=== PATIENT | female | born 1970 | race Hispanic/Latino ===

== ENCOUNTER 2016-08-31 20:03 | Emergency (ER) | payer SELFPAY ==
[2016-08-31 20:36] VITALS: BP 135/92
[2016-08-31 21:28] LABS: Basophils % (Auto) 1.3 % (0.0-1.8); Eosinophils % (Auto) 1.1 % (0.0-4.3); Hematocrit 39.1 % (30.3-42.9); Hemoglobin 13.2 gm/dl (10.1-14.3); Mean Corpuscular HGB Conc 34 % (30-34); Mean Corpuscular Hemoglobin 37 pg (28-32); Mean Corpuscular Volume 109 fl (79-97); Platelet Count 166 K/mm3 (140-440); Red Blood Count 3.58 M/mm3 (3.65-5.03); Red Cell Distribution Width 17.9 % (13.2-15.2); White Blood Count 5.3 K/mm3 (4.5-11.0)
[2016-08-31 21:49] LABS: Blood Urea Nitrogen 6 mg/dL (7-17); Calcium 8.1 mg/dL (8.4-10.2); Carbon Dioxide 26 mmol/L (22-30); Chloride 104.4 mmol/L (98-107); Glucose 84 mg/dL (65-100); Potassium 3.3 mmol/L (3.6-5.0); Sodium 145 mmol/L (137-145)
[2016-08-31 21:51] LABS: Anion Gap 18 mmol/L
--- NOTE | 2016-09-02 10:52 | ED Elopement Review ---
ED Pt Elopement review - Results review Lab results: Laboratory Tests 08/31/16 08/31/16 08/31/16 21:13 21:13 21:13 WBC 5.3 RBC 3.58 L Hgb 13.2 Hct 39.1 MCV 109 H MCH 37 H MCHC 34 RDW 17.9 H Plt Count 166 Lymph % (Auto) 47.0 H Martin % (Auto) 8.0 H Eos % (Auto) 1.1 Baso % (Auto) 1.3 Lymph # 2.5 Martin # 0.4 Eos # 0.1 Baso # 0.1 Seg Neutrophils % 42.6 Seg Neutrophils # 2.3 Sodium 145 Potassium 3.3 L Chloride 104.4 Carbon Dioxide 26 Anion Gap 18 BUN 6 L Creatinine 0.5 L Estimated GFR > 60 BUN/Creatinine Ratio 12.00 Glucose 84 Calcium 8.1 L Plasma/Serum Alcohol 0.20 H - Call Back decision Pt Call Back Decision: No action required
== END 2016-09-01 00:23 | disposition left against medical advice (07) ==
LOC: ED 20:03
DX: F10.10 Alcohol abuse, uncomplicated (principal); Z53.21 Procedure and treatment not carried out due to patient leaving prior to being seen by health care provider
CPT/HCPCS: 36415; 80048; 85025; G0480; 80320

== ENCOUNTER 2016-12-30 00:30 | Emergency (ER) | payer OTHER ==
[2016-12-30 01:00] LABS: Basophils % (Auto) 0.9 % (0.0-1.8); Eosinophils % (Auto) 0.5 % (0.0-4.3); Hematocrit 40.4 % (30.3-42.9); Hemoglobin 13.8 gm/dl (10.1-14.3); Mean Corpuscular HGB Conc 34 % (30-34); Mean Corpuscular Hemoglobin 43 pg (28-32); Platelet Count 122 K/mm3 (140-440); Red Blood Count 3.19 M/mm3 (3.65-5.03); Red Cell Distribution Width 14.3 % (13.2-15.2); White Blood Count 6.1 K/mm3 (4.5-11.0)
[2016-12-30 01:02] LABS: Mean Corpuscular Volume 126 fl (79-97)
[2016-12-30 01:19] LABS: Anion Gap 20 mmol/L; BUN/Creatinine Ratio 8.57; Blood Urea Nitrogen 6 mg/dL (7-17); Calcium 8.4 mg/dL (8.4-10.2); Carbon Dioxide 24 mmol/L (22-30); Chloride 103.5 mmol/L (98-107); Glucose 105 mg/dL (65-100); Potassium 3.3 mmol/L (3.6-5.0); Sodium 144 mmol/L (137-145)
[2016-12-30 07:27] LABS: Urine Drugs of Abuse Note Disclamer
[2016-12-30 08:10] LABS: Bacteria,Urine 1+ /HPF (Negative); Bilirubin,Urine NEG (Negative); Blood,Urine NEG (Negative); Ketones,Urine NEG (Negative); Leukocyte Esterase,Urine NEG (Negative); Mucus,Urine 1+ /HPF; Nitrite,Urine NEG (Negative); Urobilinogen,Urine < 2.0 mg/dL (<2.0)
[2016-12-30] MEDS ORDERED: K-DUR PO ONE (08:56)
[2016-12-30] MEDS ORDERED: ATIVAN IV PRN ×2 (09:02)
[2016-12-30] MEDS ORDERED: TORADOL IV ONE (09:14)
[2016-12-30 09:33] LABS: Magnesium 1.6 mg/dL (1.7-2.3)
[2016-12-30 09:46] LABS: Albumin 3.9 g/dL (3.9-5); Albumin/Globulin Ratio 1.4 %; Bilirubin,Direct 0.3 mg/dL (0-0.2); Bilirubin,Indirect 0.4 mg/dL; Bilirubin,Total 0.7 mg/dL (0.1-1.2); Total Protein 6.6 g/dL (6.3-8.2)
[2016-12-30] MEDS ORDERED: VITAMIN B-1 100 MG, FOLVITE 1 MG, INFUVITE 10 ML in NACL 0.9% 1000 ML 1,000 ML IV ONE (10:00)
[2016-12-30] MEDS: ATIVAN IV PRN (10:14)
--- NOTE | 2016-12-30 10:49 | XRay Report ---
LUMBAR SPINE THREE VIEWS: 12/30/16 00:30:00 CLINICAL: Back pain. FINDINGS: Moderate dextroscoliosis at L3-4. Moderately severe degenerative disc disease, greatest at L3-4. Large anterior and lateral osteophytes. The pedicles are intact. No fracture. Multilevel facet joint sclerosis. Normal soft tissues. IMPRESSION: Scoliosis and degenerative change, greatest at L3-4. Multilevel facet joint arthropathy.
--- NOTE | 2016-12-30 12:39 | Emergency Department Report ---
ED Psych HPI - General Chief Complaint: Psych Stated Complaint: MH EVAL Time Seen by Provider: 12/30/16 08:54 Source: patient Mode of arrival: Ambulatory Limitations: No Limitations - History of Present Illness Initial Comments: 46 yo female a past medical history alcohol abuse and previous cholecystectomy presents to the hospital complains of detox request. She states that the patient complained of being suicidal however, she states that she only said that so that she would be seen faster. Patient admits to drinking a half a gallon of liquor daily. Patient complains of lower back pain has been ongoing 1 month. She denies any recent trauma or injury. Pain worse with movement. Patient states drinking helps to decrease the pain. No complaints of nausea, vomiting, fever, dysuria, or abdominal pain. - Related Data Previous Rx's Medication Instructions Recorded Last Taken Type FLUoxetine [PROzac] 20 mg PO QDAY #30 capsule 04/27/16 Unknown Rx Folic Acid 1 tab PO QDAY #30 tab 04/27/16 Unknown Rx Multivitamin Tab [Multiple Vitamin 1 each PO ONCE #30 tablet 04/27/16 Unknown Rx TAB (Theragran)] Thiamine [Vitamin B-1] 100 mg PO QDAY #30 tablet 04/27/16 Unknown Rx traZODone [Desyrel] 50 mg PO QHS #30 tab 04/27/16 Unknown Rx Allergies Allergy/AdvReac Type Severity Reaction Status Date / Time Penicillins Allergy Rash Verified 09/02/14 19:34 ED Review of Systems ROS: Stated complaint: MH EVAL Other details as noted in HPI Comment: All other systems reviewed and negative Other: Constitutional: No fevers chills Eyes: No eye pain visual changes ENT: No ear pain or throat pain Neck: Denies pain Respiratory: Denies cough wheezing shortness of breath Cardiovascular: Denies chest pain, palpitations, syncope GI: Denies abdominal pain, nausea, vomiting, diarrhea : Denies dysuria, urinary frequency, or urgency Musculoskeletal: as per hpi Skin: Denies rash, lesions, erythema Neurologic: Denies headache, numbness, weakness Psychiatric: Denies suicidal ideation, hallucinations ED Past Medical Hx - Past Medical History Previous Medical History?: Yes Hx Congestive Heart Failure: No Hx Diabetes: No Hx Asthma: No Hx COPD: No Additional medical history: ALCOHOLIC - Surgical History Past Surgical History?: Yes Hx Cholecystectomy: Yes Additional Surgical History: HYSTERECTOMY - Social History Smoking Status: Current Every Day Smoker Substance Use Type: Alcohol - Medications Home Medications: Home Medications Medication Instructions Recorded Confirmed Last Taken Type FLUoxetine [PROzac] 20 mg PO QDAY #30 capsule 04/27/16 Unknown Rx Folic Acid 1 tab PO QDAY #30 tab 04/27/16 Unknown Rx Multivitamin Tab [Multiple Vitamin 1 each PO ONCE #30 tablet 04/27/16 Unknown Rx TAB (Theragran)] Thiamine [Vitamin B-1] 100 mg PO QDAY #30 tablet 04/27/16 Unknown Rx traZODone [Desyrel] 50 mg PO QHS #30 tab 04/27/16 Unknown Rx ED Physical Exam - General Limitations: No Limitations - Other Other exam information: General: No limitations, patient is alert in no acute distress Head exam: Atraumatic, normocephalic Eyes exam: Normal appearance ENT: Moist mucous membrane, normal oropharynx Neck exam: Normal inspection, full range of motion Respiratory exam: Clear to auscultation bilateral, no wheezes, rales, crackles Cardiovascular: Normal rate and rhythm, normal heart sounds Abdomen: Soft, nondistended, right upper quadrant tenderness, with normal bowel sounds, no rebound, or guarding Extremity: Full range of motion, bilateral lower extremity edema, 2+. No calf tenderness Back: Normal Inspection, full range of motion, bilateral lower back muscular tenderness no midline tenderness Neurologic: Alert, oriented x3, cranial nerves intact, no motor or sensory deficit Psychiatric: normal affect, normal mood Skin: Warm, dry, intact ED Course Vital Signs 12/30/16 12/30/16 12/30/16 00:37 06:17 08:11 Temperature 97.5 F L Pulse Rate 107 H 87 Respiratory 16 12 Rate Blood Pressure 132/80 124/88 O2 Sat by Pulse 100 100 98 Oximetry 12/30/16 12/30/16 12/30/16 08:20 08:30 08:40 Temperature Pulse Rate Respiratory Rate Blood Pressure 115/90 131/85 131/85 O2 Sat by Pulse 97 97 95 Oximetry 12/30/16 12/30/16 12/30/16 08:50 09:00 09:10 Temperature Pulse Rate Respiratory Rate Blood Pressure 131/85 131/85 145/88 O2 Sat by Pulse 94 95 95 Oximetry 12/30/16 12/30/16 12/30/16 09:24 09:30 09:40 Temperature Pulse Rate Respiratory Rate Blood Pressure 145/88 135/87 135/87 O2 Sat by Pulse 94 98 92 Oximetry 12/30/16 12/30/16 12/30/16 09:50 10:00 10:11 Temperature Pulse Rate Respiratory Rate Blood Pressure 135/87 135/87 O2 Sat by Pulse 96 84 93 Oximetry 12/30/16 12/30/16 12/30/16 10:21 10:30 10:41 Temperature Pulse Rate Respiratory Rate Blood Pressure 141/92 118/72 118/72 O2 Sat by Pulse 88 93 92 Oximetry 12/30/16 12/30/16 12/30/16 10:51 11:00 11:11 Temperature Pulse Rate Respiratory Rate Blood Pressure 118/72 113/61 113/61 O2 Sat by Pulse 92 89 91 Oximetry 12/30/16 12/30/16 12/30/16 11:21 11:30 11:41 Temperature Pulse Rate Respiratory Rate Blood Pressure 113/61 133/81 133/81 O2 Sat by Pulse 91 99 94 Oximetry 12/30/16 12/30/16 11:51 12:00 Temperature Pulse Rate Respiratory Rate Blood Pressure 133/81 113/70 O2 Sat by Pulse 93 95 Oximetry - Reevaluation(s) Reevaluation #1: 12/30/16 13:40 pt drowsy and sleeping since receiving ativan. - Consultations Consultation #1: 12/30/16 10:57 [facility] ED Medical Decision Making - Lab Data Result diagrams: 12/30/16 00:43 12/30/16 00:43 Lab Results 12/30/16 12/30/16 12/30/16 Range/Units 00:30 00:43 00:43 WBC (4.5-11.0) K/mm3 RBC (3.65-5.03) M/mm3 Hgb (10.1-14.3) gm/dl Hct (30.3-42.9) % MCV (79-97) fl MCH (28-32) pg MCHC (30-34) % RDW (13.2-15.2) % Plt Count (140-440) K/mm3 Lymph % (Auto) (13.4-35.0) % [place] % (Auto) (0.0-7.3) % Eos % (Auto) (0.0-4.3) % Baso % (Auto) (0.0-1.8) % Lymph # (1.2-5.4) K/mm3 [place] # (0.0-0.8) K/mm3 Eos # (0.0-0.4) K/mm3 Baso # (0.0-0.1) K/mm3 Seg Neutrophils % (40.0-70.0) % Seg Neutrophils # (1.8-7.7) K/mm3 Sodium 144 (137-145) mmol/L Potassium 3.3 L (3.6-5.0) mmol/L Chloride 103.5 (98-107) mmol/L Carbon Dioxide 24 (22-30) mmol/L Anion Gap 20 mmol/L BUN 6 L (7-17) mg/dL Creatinine 0.7 (0.7-1.2) mg/dL Estimated GFR > 60 ml/min BUN/Creatinine Ratio 8.57 % Glucose 105 H (65-100) mg/dL Calcium 8.4 (8.4-10.2) mg/dL Magnesium 1.60 L (1.7-2.3) mg/dL Total Bilirubin (0.1-1.2) mg/dL Direct Bilirubin (0-0.2) mg/dL Indirect Bilirubin mg/dL AST (5-40) units/L ALT (7-56) units/L Alkaline Phosphatase (35-129) units/L Total Creatine Kinase 65 (30-135) units/L Total Protein (6.3-8.2) g/dL Albumin (3.9-5) g/dL Albumin/Globulin Ratio % Urine Color (Yellow) Urine Turbidity (Clear) Urine pH (5.0-7.0) Ur Specific [place] (1.003-1.030) Urine Protein (Negative) mg/dL Urine Glucose (UA) (Negative) mg/dL Urine Ketones (Negative) mg/dL Urine Blood (Negative) Urine Nitrite (Negative) Urine Bilirubin (Negative) Urine Urobilinogen (<2.0) mg/dL Ur Leukocyte Esterase (Negative) Urine WBC (Auto) (0.0-6.0) /HPF Urine RBC (Auto) (0.0-6.0) /HPF U Epithel Cells (Auto) (0-13.0) /HPF Urine Bacteria (Auto) (Negative) /HPF Calcium Oxalate Crystal Amorphous Crystals Urine Mucus /HPF Urine HCG, Qual (Negative) Urine Opiates Screen Urine Methadone Screen Ur Barbiturates Screen Ur Phencyclidine Scrn Ur Amphetamines Screen U Benzodiazepines Scrn Urine Cocaine Screen U Marijuana (THC) Screen Drugs of Abuse Note Plasma/Serum Alcohol 0.38 H (0-0.07) gm% 12/30/16 12/30/16 12/30/16 Range/Units 00:43 00:43 06:25 WBC 6.1 (4.5-11.0) K/mm3 RBC 3.19 L (3.65-5.03) M/mm3 Hgb 13.8 (10.1-14.3) gm/dl Hct 40.4 (30.3-42.9) % MCV 126 H (79-97) fl MCH 43 H (28-32) pg MCHC 34 (30-34) % RDW 14.3 (13.2-15.2) % Plt Count 122 L (140-440) K/mm3 Lymph % (Auto) 44.6 H (13.4-35.0) % [place] % (Auto) 8.1 H (0.0-7.3) % Eos % (Auto) 0.5 (0.0-4.3) % Baso % (Auto) 0.9 (0.0-1.8) % Lymph # 2.7 (1.2-5.4) K/mm3 [place] # 0.5 (0.0-0.8) K/mm3 Eos # 0.0 (0.0-0.4) K/mm3 Baso # 0.1 (0.0-0.1) K/mm3 Seg Neutrophils % 45.9 (40.0-70.0) % Seg Neutrophils # 2.8 (1.8-7.7) K/mm3 Sodium (137-145) mmol/L Potassium (3.6-5.0) mmol/L Chloride (98-107) mmol/L Carbon Dioxide (22-30) mmol/L Anion Gap mmol/L BUN (7-17) mg/dL Creatinine (0.7-1.2) mg/dL Estimated GFR ml/min BUN/Creatinine Ratio % Glucose (65-100) mg/dL Calcium (8.4-10.2) mg/dL Magnesium (1.7-2.3) mg/dL Total Bilirubin 0.70 (0.1-1.2) mg/dL Direct Bilirubin 0.3 H (0-0.2) mg/dL Indirect Bilirubin 0.4 mg/dL AST 200 H (5-40) units/L ALT 62 H (7-56) units/L Alkaline Phosphatase 136 H (35-129) units/L Total Creatine Kinase (30-135) units/L Total Protein 6.6 (6.3-8.2) g/dL Albumin 3.9 (3.9-5) g/dL Albumin/Globulin Ratio 1.4 % Urine Color Yellow (Yellow) Urine Turbidity Clear (Clear) Urine pH 5.0 (5.0-7.0) Ur Specific [place] 1.017 (1.003-1.030) Urine Protein 30 mg/dl (Negative) mg/dL Urine Glucose (UA) Neg (Negative) mg/dL Urine Ketones Neg (Negative) mg/dL Urine Blood Neg (Negative) Urine Nitrite Neg (Negative) Urine Bilirubin Neg (Negative) Urine Urobilinogen < 2.0 (<2.0) mg/dL Ur Leukocyte Esterase Neg (Negative) Urine WBC (Auto) 3.0 (0.0-6.0) /HPF Urine RBC (Auto) 2.0 (0.0-6.0) /HPF U Epithel Cells (Auto) 5.0 (0-13.0) /HPF Urine Bacteria (Auto) 1+ (Negative) /HPF Calcium Oxalate Crystal Few Amorphous Crystals Few Urine Mucus 1+ /HPF Urine HCG, Qual Negative (Negative) Urine Opiates Screen Urine Methadone Screen Ur Barbiturates Screen Ur Phencyclidine Scrn Ur Amphetamines Screen U Benzodiazepines Scrn Urine Cocaine Screen U Marijuana (THC) Screen Drugs of Abuse Note Plasma/Serum Alcohol (0-0.07) gm% 12/30/16 Range/Units 06:25 WBC (4.5-11.0) K/mm3 RBC (3.65-5.03) M/mm3 Hgb (10.1-14.3) gm/dl Hct (30.3-42.9) % MCV (79-97) fl MCH (28-32) pg MCHC (30-34) % RDW (13.2-15.2) % Plt Count (140-440) K/mm3 Lymph % (Auto) (13.4-35.0) % [place] % (Auto) (0.0-7.3) % Eos % (Auto) (0.0-4.3) % Baso % (Auto) (0.0-1.8) % Lymph # (1.2-5.4) K/mm3 [place] # (0.0-0.8) K/mm3 Eos # (0.0-0.4) K/mm3 Baso # (0.0-0.1) K/mm3 Seg Neutrophils % (40.0-70.0) % Seg Neutrophils # (1.8-7.7) K/mm3 Sodium (137-145) mmol/L Potassium (3.6-5.0) mmol/L Chloride (98-107) mmol/L Carbon Dioxide (22-30) mmol/L Anion Gap mmol/L BUN (7-17) mg/dL Creatinine (0.7-1.2) mg/dL Estimated GFR ml/min BUN/Creatinine Ratio % Glucose (65-100) mg/dL Calcium (8.4-10.2) mg/dL Magnesium (1.7-2.3) mg/dL Total Bilirubin (0.1-1.2) mg/dL Direct Bilirubin (0-0.2) mg/dL Indirect Bilirubin mg/dL AST (5-40) units/L ALT (7-56) units/L Alkaline Phosphatase (35-129) units/L Total Creatine Kinase (30-135) units/L Total Protein (6.3-8.2) g/dL Albumin (3.9-5) g/dL Albumin/Globulin Ratio % Urine Color (Yellow) Urine Turbidity (Clear) Urine pH (5.0-7.0) Ur Specific [place] (1.003-1.030) Urine Protein (Negative) mg/dL Urine Glucose (UA) (Negative) mg/dL Urine Ketones (Negative) mg/dL Urine Blood (Negative) Urine Nitrite (Negative) Urine Bilirubin (Negative) Urine Urobilinogen (<2.0) mg/dL Ur Leukocyte Esterase (Negative) Urine WBC (Auto) (0.0-6.0) /HPF Urine RBC (Auto) (0.0-6.0) /HPF U Epithel Cells (Auto) (0-13.0) /HPF Urine Bacteria (Auto) (Negative) /HPF Calcium Oxalate Crystal Amorphous Crystals Urine Mucus /HPF Urine HCG, Qual (Negative) Urine Opiates Screen Presumptive negative Urine Methadone Screen Presumptive negative Ur Barbiturates Screen Presumptive negative Ur Phencyclidine Scrn Presumptive negative Ur Amphetamines Screen Presumptive positive U Benzodiazepines Scrn Presumptive negative Urine Cocaine Screen Presumptive negative U Marijuana (THC) Screen Presumptive negative Drugs of Abuse Note Disclamer Plasma/Serum Alcohol (0-0.07) gm% - Radiology Data Radiology results: report reviewed (x-ray lumbar spine: Scoliosis and degenerative changes greatest at L3-L4. Multilevel facet joint arthropathy) - Medical Decision Making Patient came into the hospital acutely intoxicated however, began to have symptoms of withdrawal after arrival to the ED. She received IV Ativan as per [facility] protocol. She also received Toradol for her ongoing back pain, by mouth potassium, and IV magnesium for a slight supplementation and banana bag. Patient also has thrombocytopenia and chronic elevated LFTs likely secondary to alcohol abuse. transfer form signed, pt is voluntary - Differential Diagnosis alcohol abuse, alcohol intoxication, electrolyte abnormality, liver disease Critical Care Time: No Critical care attestation.: If time is entered above; I have spent that time in minutes in the direct care of this critically ill patient, excluding procedure time. ED Disposition Clinical Impression: Alcohol abuse, Methamphetamine abuse, Elevated LFTs, Hypokalemia, Magnesium deficiency, Alcohol withdrawal, Alcohol intoxication, Thrombocytopenia, Medical clearance for psychiatric admission, DJD (degenerative joint disease), lumbosacral Disposition: DC/TX PSY HOSP/PSY UNIT Is pt being admited?: No Does the pt Need Aspirin: No Condition: Stable Time of Disposition: 13:39 (awaiting acceptance)
[2016-12-30] MEDS ORDERED: MAGNESIUM SULFATE 2GM/50ML 2 GM/50 ML BAG IV ONE (12:52)
--- NOTE | 2016-12-30 18:40 | Consultation ---
History of Present Illness - Reason for Consult Consult date: 12/30/16 Reason for consult: etoh intoxication and requesting detox Medications and Allergies Allergies Allergy/AdvReac Type Severity Reaction Status Date / Time Penicillins Allergy Rash Verified 09/02/14 19:34 Home Medications Medication Instructions Recorded Confirmed Last Taken Type FLUoxetine [PROzac] 20 mg PO QDAY #30 capsule 04/27/16 12/30/16 Unknown Rx Folic Acid 1 tab PO QDAY #30 tab 04/27/16 12/30/16 Unknown Rx Multivitamin Tab [Multiple Vitamin 1 each PO ONCE #30 tablet 04/27/16 12/30/16 Unknown Rx TAB (Theragran)] Thiamine [Vitamin B-1] 100 mg PO QDAY #30 tablet 04/27/16 12/30/16 Unknown Rx traZODone [Desyrel] 50 mg PO QHS #30 tab 04/27/16 12/30/16 Unknown Rx Active Meds: Active Medications Lorazepam (Ativan) 2 mg IV Q1HR PRN PRN Reason: CIWA-Ar 8-15 Last Admin: 12/30/16 10:14 Dose: 2 mg Lorazepam (Ativan) 4 mg IV Q1HR PRN PRN Reason: CIWA-Ar 16-25 Lorazepam (Ativan) 4 mg IV Q15MIN PRN PRN Reason: CIWA-Ar >25 Mental Status Exam - Vital signs Last Vital Signs Temp 97.5 F L 12/30/16 00:37 Pulse 87 12/30/16 06:17 Resp 12 12/30/16 06:17 BP 158/98 12/30/16 17:00 Pulse Ox 94 12/30/16 17:00 Results Result Diagrams: 12/30/16 00:43 12/30/16 00:43 Abnormal lab results 12/30/16 12/30/16 12/30/16 Range/Units 00:30 00:43 00:43 RBC (3.65-5.03) M/mm3 MCV (79-97) fl MCH (28-32) pg Plt Count (140-440) K/mm3 Lymph % (Auto) (13.4-35.0) % [place] % (Auto) (0.0-7.3) % Potassium 3.3 L (3.6-5.0) mmol/L BUN 6 L (7-17) mg/dL Glucose 105 H (65-100) mg/dL Magnesium 1.60 L (1.7-2.3) mg/dL Direct Bilirubin (0-0.2) mg/dL AST (5-40) units/L ALT (7-56) units/L Alkaline Phosphatase (35-129) units/L Plasma/Serum Alcohol 0.38 H (0-0.07) gm% 12/30/16 12/30/16 12/30/16 Range/Units 00:43 00:43 09:15 RBC 3.19 L (3.65-5.03) M/mm3 MCV 126 H (79-97) fl MCH 43 H (28-32) pg Plt Count 122 L (140-440) K/mm3 Lymph % (Auto) 44.6 H (13.4-35.0) % [place] % (Auto) 8.1 H (0.0-7.3) % Potassium (3.6-5.0) mmol/L BUN (7-17) mg/dL Glucose (65-100) mg/dL Magnesium (1.7-2.3) mg/dL Direct Bilirubin 0.3 H (0-0.2) mg/dL AST 200 H (5-40) units/L ALT 62 H (7-56) units/L Alkaline Phosphatase 136 H (35-129) units/L Plasma/Serum Alcohol 0.17 H (0-0.07) gm% All other labs normal. Assessment and Plan Assessment and plan: CHIEF COMPLAINT IN PATIENTS WORDS: I want a detox HISTORY OF PRESENT ILLNESS REQUIRING ADMISSION TO INPATIENT LEVEL OF CARE: (Describe the onset of Illness, Intensity of Symptoms, and Circumstances Leading to Admission) This is a 46 year-old domiciled female who reports a formal PPH EtOH Abuse who presents acutely intoxicated on alcohol. Patient reports that she attempted to cut back several times and was experiencing signs and symptoms of withdrawal, most notably the emergence of a tremor. Patient has been using fairly heavily for many years. Patient reports that she currently uses about a gallon of vodka daily. Per medical record review, has thrombocytopenia and elevated LFTs consistent with clinical call exposure. She has been seen by the ER physician and initiated on the appropriate acute interventions to ensure she is not going to experience DTs. He said she just expressed SI initially to be seen quicker in the ER but does not have suicidal thoughts and does not want to kill herself. PSYCHIATRIC REVIEW OF SYSTEMS: Substance: 1. Patient's reports unsuccessful attempts to cut back in the past. 2. Patient endorses craving. 3. Patient reports continued use despite physical and/or psychological problems. 4. Patient reports withdrawal the past. 5. Patient reports tolerance. 6. Patient reports spending a great deal of time either trying to obtain, use or recover from the effects of drugs. Patient denies any other addictions than alcohol. Depression: denies all Sherrie: labile moods, irritable Psychosis: no AVH. No paranoia/grandiosity/erotomania Anxiety/ OCD/ PTSD: Expenses and anxiety and restlessness when withdrawing from alcohol Suicidality: denies current SI Other Self-Injurious Behavior: none currently, no SIB noted recently Violent/ Aggressive Behavior: None CURRENT MEDICATIONS: ( Psychiatric and Non-psychiatric ) None reported by the patient ALLERGIES: C PAST PSYCHIATRIC HISTORY: ( Prior Treatment, Precipitating Factors, Diagnosis, and Course of Treatment ) Difficult to obtain, patient appears somewhat restless PAST PSYCHIATRIC MEDICATION TRIALS: none reported MEDICAL HISTORY: (Chronic and Acute Illnesses, Current Medical Treatment, Recent Hospitalizations) HISTORY OF TRAUMA/ABUSE: unknown DRUG / ALCOHOL ABUSE HISTORY: ETOH Daily use of vodka 1/2 gallon Detoxification / Withdrawal: currently having significant anxiety/cravings/ restlessness/tremors SOCIAL HISTORY: (Educational Level, Employment, Support System, Interpersonal Relationships) lives with a roommate FAMILY HISTORY: Psychiatric/Substance Abuse unknown MENTAL STATUS EXAM: Consciousness: somnolent, but responding to external stimuli General Appearance: hospital gown, in acute distress Eye Contact: limited Attitude / Behavior: cooperative Sensorium: clear Psychomotor & Musculoskeletal Activity: WNL Mood: fine Affect: constricted Speech / Language: normal Thought Processes: organized, logical, linear Thought Content: no SI, no HI Perception: no AVH Orientation: person, place, time and situation Concentration/Attention WORLD backwards: unable to obtain Memory Immediate Digit Span (4-2-1-9-3-1-5): unable to obtain Memory Recent (Objects: Lamp, Umbrella, and Telephone) Patient Response: unable to obtain Memory Remote (Name as many presidents as you can starting with current one and going backwards) Patient Response: unable to obtain Judgment What would you do if you smelled smoke in a crowded movie theater?: poor/impulsive Insight: poor Intelligence Vocabulary, general fund of knowledge, educational level : unable to assess Capacity of ADLs: Independent STRENGTHS: Some insight into presentation; desire to detox PSYCHOSOCIAL AND ENVIRONMENTAL STRESSORS: Strained relationship with family ADMITTING DIAGNOSES Psychiatric: EtOH Abuse v Dependence Plan: - Detox taper - provide patient with the resources on the following website for free rehab centers in [place]: [email or web address]
--- NOTE | 2016-12-30 20:49 | Event Note ---
Date: 12/30/16 Patient's Joel; [phone]
[2016-12-31] MEDS: ATIVAN IV PRN ×2 (05:44→15:08)
[2016-12-31 16:20] VITALS: BP 131/81
--- NOTE | 2016-12-31 16:38 | Progress Note ---
Subjective - Reason for Consult Consult date: 12/31/16 Reason for consult: etoh withdrawal Mental Status Exam - Vital signs Last Vital Signs Temp 97.5 F L 12/30/16 00:37 Pulse 100 H 12/31/16 16:20 Resp 18 12/31/16 16:20 BP 131/81 12/31/16 16:20 Pulse Ox 100 12/31/16 16:20 Assessment and Plan Patient continues to experience withdrawal symptoms. I discussed her overall goals and it seems that the patient would like to be admitted for the detox protocol. I have advised her to consider a long-term rehabilitation facility. The resources for such facility are detailed in the website link listed below. MENTAL STATUS EXAM: Consciousness: somnolent, but responding to external stimuli General Appearance: hospital gown, in acute distress Eye Contact: limited Attitude / Behavior: cooperative Sensorium: clear Psychomotor & Musculoskeletal Activity: WNL Mood: fine Affect: constricted Speech / Language: normal Thought Processes: organized, logical, linear Thought Content: no SI, no HI Perception: no AVH Orientation: person, place, time and situation ADMITTING DIAGNOSES Psychiatric: EtOH Abuse v Dependence Plan: - Continue detox taper - provide patient with the resources on the following website for free rehab centers in [place]: [email or web address]
== END 2016-12-31 21:50 | disposition left against medical advice (07) ==
LOC: ED 00:30
DX: F10.239 Alcohol dependence with withdrawal, unspecified (principal); F10.229 Alcohol dependence with intoxication, unspecified; F15.10 Other stimulant abuse, uncomplicated; E87.6 Hypokalemia; E61.2 Magnesium deficiency; D69.6 Thrombocytopenia, unspecified; M47.897 Other spondylosis, lumbosacral region; R79.89 Other specified abnormal findings of blood chemistry; F17.200 Nicotine dependence, unspecified, uncomplicated; Z90.710 Acquired absence of both cervix and uterus; Z90.49 Acquired absence of other specified parts of digestive tract; Z88.0 Allergy status to penicillin
CPT/HCPCS: 36415; 72100; 80048; 80074; 80307; 81001; 81025; 82550; 83735; 85025; 96365; 96366; 96368; 96375; 99285; G0480; J1885; J2060; J3411; J3475; J7030; 80320

== ENCOUNTER 2020-08-11 06:47 | Emergency (ER) | payer SELFPAY ==
[2020-08-11] MEDS ORDERED: ASPIRIN 325 MG TAB PO ONE (07:24)
--- NOTE | 2020-08-11 08:03 | Emergency Department Report ---
ED General Adult HPI - General Chief complaint: Alcohol Stated complaint: N/V ETOH Time Seen by Provider: 08/11/20 08:02 Source: patient Mode of arrival: Ambulatory Limitations: No Limitations - History of Present Illness Initial comments: Patient is a 49-year-old alcoholic female, last alcohol intake 8 hours ago, who presents emergency department with abrupt onset nausea vomiting this morning. Patient denies fever, denies abdominal pain, denies chest pain, denies dysuria. - Related Data Previous Rx's Medication Instructions Recorded Last Taken Type FLUoxetine [PROzac] 20 mg PO QDAY #30 capsule 04/27/16 Unknown Rx Folic Acid 1 tab PO QDAY #30 tab 04/27/16 Unknown Rx Multivitamin Tab [Multiple Vitamin 1 each PO ONCE #30 tablet 04/27/16 Unknown Rx TAB (Theragran)] Thiamine [Vitamin B-1] 100 mg PO QDAY #30 tablet 04/27/16 Unknown Rx traZODone [Desyrel] 50 mg PO QHS #30 tab 04/27/16 Unknown Rx Allergies Allergy/AdvReac Type Severity Reaction Status Date / Time Penicillins Allergy Rash Verified 09/02/14 19:34 ED Review of Systems ROS: Stated complaint: N/V ETOH Other details as noted in HPI Comment: All other systems reviewed and negative ED Past Medical Hx - Past Medical History Hx Congestive Heart Failure: No Hx Diabetes: No Hx Asthma: No Hx COPD: No Additional medical history: ALCOHOLIC - Surgical History Hx Cholecystectomy: Yes Additional Surgical History: HYSTERECTOMY - Social History Smoking Status: Current Every Day Smoker Substance Use Type: Alcohol - Medications Home Medications: Home Medications Medication Instructions Recorded Confirmed Last Taken Type FLUoxetine [PROzac] 20 mg PO QDAY #30 capsule 04/27/16 12/30/16 Unknown Rx Folic Acid 1 tab PO QDAY #30 tab 04/27/16 12/30/16 Unknown Rx Multivitamin Tab [Multiple Vitamin 1 each PO ONCE #30 tablet 04/27/16 12/30/16 Unknown Rx TAB (Theragran)] Thiamine [Vitamin B-1] 100 mg PO QDAY #30 tablet 04/27/16 12/30/16 Unknown Rx traZODone [Desyrel] 50 mg PO QHS #30 tab 04/27/16 12/30/16 Unknown Rx ED Physical Exam - General Limitations: No Limitations General appearance: alert, in no apparent distress - Head Head exam: Present: atraumatic, normocephalic - Eye Eye exam: Present: normal appearance - ENT ENT exam: Present: mucous membranes moist - Neck Neck exam: Present: normal inspection - Respiratory Respiratory exam: Present: normal lung sounds bilaterally. Absent: respiratory distress - Cardiovascular Cardiovascular Exam: Present: normal rhythm, tachycardia. Absent: systolic murmur, diastolic murmur, rubs, gallop - GI/Abdominal GI/Abdominal exam: Present: soft, normal bowel sounds - Extremities Exam Extremities exam: Present: normal inspection - Back Exam Back exam: Present: normal inspection - Neurological Exam Neurological exam: Present: alert, oriented X3, other (Mild tremor bilateral upper extremities) - Psychiatric Psychiatric exam: Present: normal affect, normal mood - Skin Skin exam: Present: warm, dry, intact, normal color. Absent: rash ED Course Vital Signs 08/11/20 08/11/20 08/11/20 07:21 08:01 08:19 Temperature 98.1 F Pulse Rate 134 H 130 H Respiratory 20 20 26 H Rate Blood Pressure 133/78 Blood Pressure 142/82 [Left] O2 Sat by Pulse 94 96 94 Oximetry - Reevaluation(s) Reevaluation #1: 08/11/20 14:31 Patient treated with IV NS x3 L, Ativan 4 mg IV x1. Patient observed for 8 hours in emergency department following treatment for possible withdrawal without recurrence of symptoms, tachycardia resolved, patient in no acute distress, abdomen remains soft and nontender. Patient no longer tremulous. Advised patient slowly wean herself off alcohol and/or follow-up with detox as previously instructed. ED Medical Decision Making - Lab Data Result diagrams: 08/11/20 07:51 08/11/20 07:51 Lab Results 08/11/20 08/11/20 08/11/20 Range/Units 07:48 07:51 07:51 WBC 6.6 (4.5-11.0) K/mm3 RBC 2.87 L (3.65-5.03) M/mm3 Hgb 11.7 (10.1-14.3) gm/dl Hct 33.4 (30.3-42.9) % MCV 117 H (79-97) fl MCH 41 H (28-32) pg MCHC 35 H (30-34) % RDW 18.6 H (13.2-15.2) % Plt Count 115 L (140-440) K/mm3 Lymph % (Auto) 30.8 (13.4-35.0) % [place] % (Auto) 7.4 H (0.0-7.3) % Eos % (Auto) 0.9 (0.0-4.3) % Baso % (Auto) 1.3 (0.0-1.8) % Lymph # (Auto) 2.0 (1.2-5.4) K/mm3 [place] # (Auto) 0.5 (0.0-0.8) K/mm3 Eos # (Auto) 0.1 (0.0-0.4) K/mm3 Baso # (Auto) 0.1 (0.0-0.1) K/mm3 Seg Neutrophils % 59.6 (40.0-70.0) % Seg Neutrophils # 4.0 (1.8-7.7) K/mm3 Sodium 142 (137-145) mmol/L Potassium 3.7 (3.6-5.0) mmol/L Chloride 104.6 (98-107) mmol/L Carbon Dioxide 26 (22-30) mmol/L Anion Gap 15 mmol/L BUN 10 (7-17) mg/dL Creatinine 0.6 (0.6-1.2) mg/dL Estimated GFR > 60 ml/min BUN/Creatinine Ratio 17 % Glucose 87 (65-100) mg/dL Calcium 8.2 L (8.4-10.2) mg/dL Total Bilirubin 0.70 (0.1-1.2) mg/dL AST 129 H (5-40) units/L ALT 35 (7-56) units/L Alkaline Phosphatase 108 (35-129) units/L Troponin T < 0.010 (0.00-0.029) ng/mL Total Protein 5.9 L (6.3-8.2) g/dL Albumin 3.4 L (3.9-5) g/dL Albumin/Globulin Ratio 1.4 % Urine Color [place] (Yellow) Urine Turbidity Slightly-cloudy (Clear) Urine pH 5.0 (5.0-7.0) Ur Specific [place] 1.029 (1.003-1.030) Urine Protein 30 mg/dl (Negative) mg/dL Urine Glucose (UA) Neg (Negative) mg/dL Urine Ketones Neg (Negative) mg/dL Urine Blood Neg (Negative) Urine Nitrite Neg (Negative) Urine Bilirubin Neg (Negative) Urine Urobilinogen 2.0 (<2.0) mg/dL Ur Leukocyte Esterase Lg (Negative) Urine WBC (Auto) 112.0 H (0.0-6.0) /HPF Urine RBC (Auto) 11.0 (0.0-6.0) /HPF U Epithel Cells (Auto) 11.0 (0-13.0) /HPF Urine Bacteria (Auto) 1+ (Negative) /HPF Calcium Oxalate Crystal 3+ Urine Mucus 2+ /HPF Plasma/Serum Alcohol (0-0.07) % 08/11/20 08/11/20 Range/Units 09:04 10:14 WBC (4.5-11.0) K/mm3 RBC (3.65-5.03) M/mm3 Hgb (10.1-14.3) gm/dl Hct (30.3-42.9) % MCV (79-97) fl MCH (28-32) pg MCHC (30-34) % RDW (13.2-15.2) % Plt Count (140-440) K/mm3 Lymph % (Auto) (13.4-35.0) % [place] % (Auto) (0.0-7.3) % Eos % (Auto) (0.0-4.3) % Baso % (Auto) (0.0-1.8) % Lymph # (Auto) (1.2-5.4) K/mm3 [place] # (Auto) (0.0-0.8) K/mm3 Eos # (Auto) (0.0-0.4) K/mm3 Baso # (Auto) (0.0-0.1) K/mm3 Seg Neutrophils % (40.0-70.0) % Seg Neutrophils # (1.8-7.7) K/mm3 Sodium (137-145) mmol/L Potassium (3.6-5.0) mmol/L Chloride (98-107) mmol/L Carbon Dioxide (22-30) mmol/L Anion Gap mmol/L BUN (7-17) mg/dL Creatinine (0.6-1.2) mg/dL Estimated GFR ml/min BUN/Creatinine Ratio % Glucose (65-100) mg/dL Calcium (8.4-10.2) mg/dL Total Bilirubin (0.1-1.2) mg/dL AST (5-40) units/L ALT (7-56) units/L Alkaline Phosphatase (35-129) units/L Troponin T < 0.010 (0.00-0.029) ng/mL Total Protein (6.3-8.2) g/dL Albumin (3.9-5) g/dL Albumin/Globulin Ratio % Urine Color (Yellow) Urine Turbidity (Clear) Urine pH (5.0-7.0) Ur Specific [place] (1.003-1.030) Urine Protein (Negative) mg/dL Urine Glucose (UA) (Negative) mg/dL Urine Ketones (Negative) mg/dL Urine Blood (Negative) Urine Nitrite (Negative) Urine Bilirubin (Negative) Urine Urobilinogen (<2.0) mg/dL Ur Leukocyte Esterase (Negative) Urine WBC (Auto) (0.0-6.0) /HPF Urine RBC (Auto) (0.0-6.0) /HPF U Epithel Cells (Auto) (0-13.0) /HPF Urine Bacteria (Auto) (Negative) /HPF Calcium Oxalate Crystal Urine Mucus /HPF Plasma/Serum Alcohol 0.02 (0-0.07) % Vital Signs 08/11/20 08/11/20 08/11/20 07:21 08:01 08:19 Temperature 98.1 F Pulse Rate 134 H 130 H Respiratory 20 20 26 H Rate Blood Pressure 133/78 Blood Pressure 142/82 [Left] O2 Sat by Pulse 94 96 94 Oximetry - EKG Data -: EKG Interpreted by Me (Sinus tachycardia 118, no ST-T changes, normal QRS) Critical care attestation.: If time is entered above; I have spent that time in minutes in the direct care of this critically ill patient, excluding procedure time. ED Disposition Clinical Impression: Nausea & vomiting, Alcohol use disorder Disposition: DC-01 TO HOME OR SELFCARE Is pt being admited?: No Condition: Stable Instructions: Nausea and Vomiting, Adult, Alcohol Use Disorder Referrals: PRIMARY CARE,MD [Primary Care Provider] - 3-5 Days
[2020-08-11 08:04] LABS: Hematocrit 33.4 % (30.3-42.9); Hemoglobin 11.7 gm/dl (10.1-14.3); Mean Corpuscular HGB Conc 35 % (30-34); Mean Corpuscular Volume 117 fl (79-97); Platelet Count 115 K/mm3 (140-440); Red Blood Count 2.87 M/mm3 (3.65-5.03); Red Cell Distribution Width 18.6 % (13.2-15.2)
[2020-08-11 08:08] LABS: Basophils # (Auto) 0.1 K/mm3 (0.0-0.1); Basophils % (Auto) 1.3 % (0.0-1.8); Eosinophils # (Auto) 0.1 K/mm3 (0.0-0.4); Eosinophils % (Auto) 0.9 % (0.0-4.3); Lymphocytes % (Auto) 30.8 % (13.4-35.0); Monocytes # (Auto) 0.5 K/mm3 (0.0-0.8); Monocytes % (Auto) 7.4 % (0.0-7.3)
[2020-08-11] MEDS ORDERED: THIAMINE 100 MG in SODIUM CHLORIDE 0.9% 50 ML IV ONE (08:16)
[2020-08-11] MEDS ORDERED: ONDANSETRON 4 MG/2 ML INJ IV ONE (08:17)
[2020-08-11] MEDS ORDERED: SODIUM CHLORIDE 0.9% 1000 ML 1,000 ML IV ONE ×2 (08:17→13:35)
[2020-08-11 08:20] LABS: Alanine Aminotransferase 35 units/L (7-56); Albumin 3.4 g/dL (3.9-5); Blood Urea Nitrogen 10 mg/dL (7-17); Calcium 8.2 mg/dL (8.4-10.2); Hemolysis Index 26
[2020-08-11] MEDS ORDERED: LORazepam 2 MG/ML VIAL IV ONE (08:20)
[2020-08-11 08:24] LABS: BUN/Creatinine Ratio 17
--- NOTE | 2020-08-11 08:28 | XRay Report ---
CHEST 1 VIEW INDICATION / CLINICAL INFORMATION: Chest Pain. COMPARISON: None available. FINDINGS: SUPPORT DEVICES: None. HEART / MEDIASTINUM: No significant abnormality. LUNGS / PLEURA: No significant pulmonary or pleural abnormality. No pneumothorax. ADDITIONAL FINDINGS: No significant additional findings. IMPRESSION: 1. No acute findings. Signer Name: Luther Palacios MD Signed: 08/11/2020 8:24 AM Workstation Name: [id number]
[2020-08-11 08:40] LABS: Bacteria,Urine 1+ /HPF (Negative); Bilirubin,Urine NEG (Negative); Blood,Urine NEG (Negative); Calcium Oxalate Crystals,Urine 3+; Color,Urine Amber (Yellow); Mucus,Urine 2+ /HPF
[2020-08-11] MEDS ORDERED: THIAMINE IV ONE (09:00)
[2020-08-11] MEDS ORDERED: SODIUM CHLORIDE 0.9% IV ONE (09:00)
[2020-08-11 19:03] VITALS: BP 138/70
== END 2020-08-11 17:00 | disposition home or self-care (01) ==
LOC: ED 06:47
DX: F10.20 Alcohol dependence, uncomplicated (principal)
CPT/HCPCS: 36415; 71045; 80048; 80053; 81001; 83690; 84484; 85025; 93005; 96361; 96365; 96375; 99284; J2060; J2405; J3411; J7030; 80320; G0480

== ENCOUNTER 2022-03-03 16:59 | Inpatient (IN) | payer SELFPAY ==
[2022-03-03] MEDS ORDERED: SODIUM CHLORIDE 0.9% 1000 ML 1,000 ML IV ONE ×2 (19:36→21:09)
[2022-03-03] MEDS ORDERED: PANTOPRAZOLE 80 MG in SODIUM CHLORIDE 0.9% 100 ML IV ONE (19:42)
[2022-03-03] MEDS ORDERED: ONDANSETRON 4 MG/2 ML INJ IV ONE (19:42)
[2022-03-03] MEDS ORDERED: cefTRIAXone/NS 1 GM/50 ML 1 GM/50 ML BAG IV ONE (19:42)
[2022-03-03 20:45] LABS: Albumin 2.4 g/dL (3.9-5)
--- NOTE | 2022-03-03 21:18 | XRay Report ---
CHEST 1 VIEW 03/03/2022 8:10 PM INDICATION / CLINICAL INFORMATION: Dyspnea. COMPARISON: 08/11/2020 FINDINGS: SUPPORT DEVICES: Right Vas-Cath tip overlies distal SVC HEART / MEDIASTINUM: No significant abnormality. LUNGS / PLEURA: Increased pulmonary vascularity with mild to moderate interstitial pulmonary edema No pneumothorax. Signer Name: Markie Zamudio MD Signed: 03/03/2022 9:13 PM Workstation Name: [id number]
[2022-03-03 21:20] LABS: INR 1.8 (0.87-1.13)
[2022-03-03 21:44] LABS: ABG Base Excess -3.7 mmol/L (-2.0-3.0); ABG HCO3 20.6 mmol/L (20.0-26.0); ABG Methemoglobin 0.4 % (0.0-1.5); ABG Oxygen Saturation 97.2 % (95.0-99.0); ABG PCO2 32.6 mm Hg; ABG PH 7.419 pH Units (7.350-7.450); ABG PO2 87.7 mm Hg (80.0-90.0)
[2022-03-03 21:49] LABS: Basophils % (Auto) 0.4 % (0.0-1.8); Eosinophils # (Auto) 0.1 K/mm3 (0.0-0.4); Eosinophils % (Auto) 1.2 % (0.0-4.3); Lymphocytes # (Auto) 1.3 K/mm3 (1.2-5.4); Lymphocytes % (Auto) 20.1 % (13.4-35.0); Mean Corpuscular HGB Conc 34 % (30-34); Mean Corpuscular Volume 102 fl (79-97); Monocytes # (Auto) 0.4 K/mm3 (0.0-0.8); Monocytes % (Auto) 7.1 % (0.0-7.3); Red Blood Count 1.69 M/mm3 (3.65-5.03); Red Cell Distribution Width 19.8 % (13.2-15.2)
[2022-03-03 22:00] LABS: Chol/HDL Ratio 3.57 %
[2022-03-03 22:17] LABS: Hematocrit 17.2 % (30.3-42.9); Hemoglobin 5.8 gm/dl (10.1-14.3)
[2022-03-03 22:18] LABS: Platelet Count 75 K/mm3 (140-440)
[2022-03-03] MEDS ORDERED: OCTREOTIDE 500 MCG in SODIUM CHLORIDE 0.9% 100 ML IV ONE (22:29)
[2022-03-03] MEDS ORDERED: PHYTONADIONE(ADULT ONLY) 10 MG in SODIUM CHLORIDE 0.9% 50 ML IV ONE (22:29)
--- NOTE | 2022-03-03 22:53 | Emergency Department Report ---
ED General Adult HPI - General Chief complaint: Altered Mental Status Stated complaint: AMS PUI?: No Time Seen by Provider: 03/03/22 19:35 Source: EMS Mode of arrival: Stretcher Limitations: Altered Mental Status - History of Present Illness Initial comments: PATIENT FOUND IN FLOOR AND ALTERED. PATIENT PRESENTS JAUNDICE WITH ENLARGED ABDOMEN. PATIENT IS ALTERED AND DOES NOT RESPOND VERBALLY -: Gradual, days(s) Location: abdomen Radiation: non-radiation Severity scale (0 -10): 0 Improves with: none - Related Data Previous Rx's Medication Instructions Recorded Last Taken Type FLUoxetine [PROzac] 20 mg PO QDAY #30 capsule 04/27/16 Unknown Rx Folic Acid 1 tab PO QDAY #30 tab 04/27/16 Unknown Rx Multivitamin Tab [Multiple Vitamin 1 each PO ONCE #30 tablet 04/27/16 Unknown Rx TAB (Theragran)] Thiamine [Vitamin B-1] 100 mg PO QDAY #30 tablet 04/27/16 Unknown Rx traZODone [Desyrel] 50 mg PO QHS #30 tab 04/27/16 Unknown Rx chlordiazePOXIDE [Librium] 25 mg PO Q6H #10 capsule 08/11/20 Unknown Rx Allergies Allergy/AdvReac Type Severity Reaction Status Date / Time Penicillins Allergy Rash Verified 03/03/22 17:17 ED Review of Systems ROS: Stated complaint: AMS Other details as noted in HPI Comment: Unobtainable due to pts medical conditions ED Past Medical Hx - Past Medical History Previous Medical History?: Yes Hx Congestive Heart Failure: No Hx Diabetes: No Hx Asthma: No Hx COPD: No Additional medical history: ALCOHOLIC, LIVER CA, ON DIALYSIS - Surgical History Past Surgical History?: Yes Hx Cholecystectomy: Yes Additional Surgical History: HYSTERECTOMY - Social History Smoking Status: Current Every Day Smoker Substance Use Type: Alcohol - Medications Home Medications: Home Medications Medication Instructions Recorded Confirmed Last Taken Type FLUoxetine [PROzac] 20 mg PO QDAY #30 capsule 04/27/16 12/30/16 Unknown Rx Folic Acid 1 tab PO QDAY #30 tab 04/27/16 12/30/16 Unknown Rx Multivitamin Tab [Multiple Vitamin 1 each PO ONCE #30 tablet 04/27/16 12/30/16 Unknown Rx TAB (Theragran)] Thiamine [Vitamin B-1] 100 mg PO QDAY #30 tablet 04/27/16 12/30/16 Unknown Rx traZODone [Desyrel] 50 mg PO QHS #30 tab 04/27/16 12/30/16 Unknown Rx chlordiazePOXIDE [Librium] 25 mg PO Q6H #10 capsule 08/11/20 Unknown Rx ED Physical Exam - General Limitations: Altered Mental Status General appearance: lethargic - Head Head exam: Present: atraumatic, normocephalic - Eye Eye exam: Present: other (jaundice) - ENT ENT exam: Present: mucous membranes moist - Neck Neck exam: Present: normal inspection - Respiratory Respiratory exam: Present: normal lung sounds bilaterally. Absent: respiratory distress - Cardiovascular Cardiovascular Exam: Present: normal rhythm, tachycardia. Absent: systolic murmur, diastolic murmur, rubs, gallop - GI/Abdominal GI/Abdominal exam: Present: distended, organomegaly - Rectal Rectal exam: Present: heme (+) stool, black stool, bloody stool - Extremities Exam Extremities exam: Present: normal inspection - Back Exam Back exam: Present: normal inspection - Expanded Neurological Exam Expanded Best Eye Response (Car): (3) open to voice Best Motor Response ([place]): (5) localizes to pain Best Verbal Response (Car): (3) inappropriate words Car Total: 11 - Skin Skin exam: Present: intact, normal color, pallor. Absent: rash ED Course Vital Signs 03/03/22 03/03/22 17:08 19:40 Temperature 97.5 F L 97.4 F L Pulse Rate 108 H 101 H Respiratory 16 14 Rate Blood Pressure 96/54 103/45 [Left] O2 Sat by Pulse 100 99 Oximetry ED Medical Decision Making - Lab Data Result diagrams: 03/03/22 21:35 03/03/22 19:44 - Radiology Data Radiology results: report reviewed, image reviewed - Medical Decision Making work up showed : - Low H.H , : type and screened , 2 units of blood ordered - INR : vitamin K - GI bleed : PPI , octreotide , rocephin GI consulted , spoke with dr Stephen , will stablise first and upper GI in am , if she deteriorates over night will transfer - ROSEMARY : seems pre renal , fluids and blood will be given , spoke with dr Ambrosio Rodriguez Critical Care Time: Yes Critical care time in (mins) excluding proc time.: 65 Critical care attestation.: If time is entered above; I have spent that time in minutes in the direct care of this critically ill patient, excluding procedure time. Critical Care Time: 65 ED Disposition Clinical Impression: Alcohol abuse, Polysubstance abuse, Upper GI bleed, Melena, Anemia, ROSEMARY (acute kidney injury), AMS (altered mental status) Disposition: ADMITTED INPATIENT Is pt being admited?: Yes Does the pt Need Aspirin: No Condition: Critical Referrals: ARNALDO MONTES MD [Primary Care Provider] - 3-5 Days
[2022-03-03] MEDS ORDERED: OCTREOTIDE 50 MCG/1 ML INJ IV ONE (23:29)
[2022-03-04] MEDS ORDERED: MORPHINE 4 MG/1 ML INJ IV PRN (00:02)
[2022-03-04] MEDS ORDERED: ACETAMINOPHEN 650 MG RECT SUPP PR PRN (00:02)
[2022-03-04] MEDS ORDERED: MORPHINE 2 MG/1 ML INJ IV PRN (00:02)
--- NOTE | 2022-03-04 00:12 | History and Physical Report ---
History of Present Illness Date of examination: 03/04/22 Date of admission: 03/04/2022 Chief complaint: Altered mental status GI Bleed History of present illness: 51-year-old female with known history of alcoholic liver disease, chronic kidney disease brought into the emergency room today by EMS with altered mental status. She was said to have been found on the floor altered. She is currently nonverbal but arousable. Most of the history was gotten from the ER staff as family is not palpable Upon arrival in the emergency room, patient's blood pressure was about 90/40mmhg. She was tachycardic and obviously confused. Patient had some blood in her mouth and also had some melena stool. Work up in the ER,Hemoglobin was 5.8,Hematocrit was 17.2, BUN was 86 and creatinine of 5.5, ammonia 141, troponin 0.057, toxicology screen was essent ially negative. Chest x-ray shows increased pulmonary vascularity with mild to moderate interstitial pulmonary edema. No pneumothorax. CT of the abdomen and pelvis shows cirrhosis with portal hypertension including splenomegaly and large volume ascites Patient is being prepared for blood transfusion. Patient started on proton pump inhibitor and octreotide IV. Take Up Supervisor and the railway station manager on-call has been notified by the ER physician. Past History Past Medical History: other (ALCOHOLIC, LIVER CA, ON DIALYSIS) Past Surgical History: hysterectomy Social history: no significant social history, smoking (Current daily smoker), alcohol abuse Medications and Allergies Allergies Allergy/AdvReac Type Severity Reaction Status Date / Time Penicillins Allergy Rash Verified 03/03/22 17:17 Home Medications Medication Instructions Recorded Confirmed Last Taken Type FLUoxetine [PROzac] 20 mg PO QDAY #30 capsule 04/27/16 12/30/16 Unknown Rx Folic Acid 1 tab PO QDAY #30 tab 04/27/16 12/30/16 Unknown Rx Multivitamin Tab [Multiple Vitamin 1 each PO ONCE #30 tablet 04/27/16 12/30/16 Unknown Rx TAB (Theragran)] Thiamine [Vitamin B-1] 100 mg PO QDAY #30 tablet 04/27/16 12/30/16 Unknown Rx traZODone [Desyrel] 50 mg PO QHS #30 tab 04/27/16 12/30/16 Unknown Rx chlordiazePOXIDE [Librium] 25 mg PO Q6H #10 capsule 08/11/20 Unknown Rx Active Meds: Active Medications Pantoprazole Sodium 80 mg/ (Sodium Chloride) 100 mls @ 10 mls/hr IV ONCE ONE Stop: 03/04/22 05:41 Last Admin: 03/03/22 20:34 Dose: 8 mg/hr, 10 mls/hr Octreotide Acetate 500 mcg/ (Sodium Chloride) 101 mls @ 5.05 mls/hr IV TITR ONE; Protocol Stop: 03/04/22 18:28 Last Admin: 03/03/22 23:33 Dose: 25 mcg/hr, 5.05 mls/hr Lactulose (Lactulose Enema 1000 Ml) 200 gm UT ONCE ONE Stop: 03/04/22 00:26 Review of Systems ROS unobtainable: due to mental status Exam - Constitutional Vitals: Temp Pulse Resp BP Pulse Ox 97.4 F L 96 H 10 L 100/53 98 03/03/22 19:40 03/03/22 23:31 03/03/22 23:31 03/03/22 23:31 03/03/22 23:31 General appearance: Present: no acute distress, well-nourished, other (Moderate pallor) - EENT Eyes: Present: PERRL, EOM intact, scleral icterus (Mildly jaundiced) ENT: hearing intact, clear oral mucosa, dentition normal - Neck Neck: Present: supple, normal ROM - Respiratory Respiratory effort: normal Respiratory: bilateral: CTA - Cardiovascular Rhythm: regular Heart Sounds: Present: S1 & S2. Absent: gallop, systolic murmur, diastolic murmur, rub, click - Extremities Extremities: no ischemia, pulses intact, pulses symmetrical, normal temperature, normal color, Full ROM Extremity abnormal: edema (2+ bilateral lower extremity edema) Peripheral Pulses: within normal limits - Abdominal General gastrointestinal: Present: soft, non-tender, distended, normal bowel sounds. Absent: mass - Integumentary Integumentary: Present: clear, warm, dry, normal turgor. Absent: rash - Musculoskeletal Musculoskeletal: strength equal bilaterally - Psychiatric Psychiatric: cooperative - Neurologic Neurologic: CNII-XII intact, no focal deficits, moves all extremities, other (Arousable but nonverbal) HEART Score - HEART Score Troponin: Troponin T 0.057 ng/mL (0.00-0.029) H 03/03/22 19:44 Results - Labs CBC & Chem 7: 03/03/22 21:35 03/03/22 19:44 Labs: Abnormal lab results 03/03/22 03/03/22 03/03/22 Range/Units 19:44 19:44 19:44 RBC (3.65-5.03) M/mm3 Hgb (10.1-14.3) gm/dl Hct (30.3-42.9) % MCV (79-97) fl MCH (28-32) pg RDW (13.2-15.2) % Plt Count (140-440) K/mm3 Seg Neutrophils % (40.0-70.0) % PT 23.2 H (12.2-14.9) Sec. INR 1.80 H (0.87-1.13) ABG Base Excess (-2.0-3.0) mmol/L ABG Hemoglobin (12.0-16.0) gm/dl Oxyhemoglobin (95.0-99.0) % Carbon Dioxide 20 L (22-30) mmol/L BUN 86 H (7-17) mg/dL Creatinine 5.5 H (0.6-1.2) mg/dL Calcium 8.0 L (8.4-10.2) mg/dL Total Bilirubin 3.60 H (0.1-1.2) mg/dL Ammonia 141.0 H (25-60) umol/L Troponin T 0.057 H (0.00-0.029) ng/mL Total Protein 6.1 L (6.3-8.2) g/dL Albumin 2.4 L (3.9-5) g/dL LDL Cholesterol Direct 35 L (50-130) mg/dL HDL Cholesterol 21 L (40-59) mg/dL Salicylates (2.8-20.0) mg/dL Acetaminophen (10.0-30.0) ug/mL 03/03/22 03/03/22 03/03/22 Range/Units 19:44 19:44 21:30 RBC (3.65-5.03) M/mm3 Hgb (10.1-14.3) gm/dl Hct (30.3-42.9) % MCV (79-97) fl MCH (28-32) pg RDW (13.2-15.2) % Plt Count (140-440) K/mm3 Seg Neutrophils % (40.0-70.0) % PT (12.2-14.9) Sec. INR (0.87-1.13) ABG Base Excess -3.7 L (-2.0-3.0) mmol/L ABG Hemoglobin 5.0 L (12.0-16.0) gm/dl Oxyhemoglobin 94.8 L (95.0-99.0) % Carbon Dioxide (22-30) mmol/L BUN (7-17) mg/dL Creatinine (0.6-1.2) mg/dL Calcium (8.4-10.2) mg/dL Total Bilirubin (0.1-1.2) mg/dL Ammonia (25-60) umol/L Troponin T (0.00-0.029) ng/mL Total Protein (6.3-8.2) g/dL Albumin (3.9-5) g/dL LDL Cholesterol Direct (50-130) mg/dL HDL Cholesterol (40-59) mg/dL Salicylates < 0.3 L (2.8-20.0) mg/dL Acetaminophen 5.0 L (10.0-30.0) ug/mL 03/03/22 Range/Units 21:35 RBC 1.69 L (3.65-5.03) M/mm3 Hgb 5.8 L* (10.1-14.3) gm/dl Hct 17.2 L* (30.3-42.9) % MCV 102 H (79-97) fl MCH 34 H (28-32) pg RDW 19.8 H (13.2-15.2) % Plt Count 75 L (140-440) K/mm3 Seg Neutrophils % 71.2 H (40.0-70.0) % PT (12.2-14.9) Sec. INR (0.87-1.13) ABG Base Excess (-2.0-3.0) mmol/L ABG Hemoglobin (12.0-16.0) gm/dl Oxyhemoglobin (95.0-99.0) % Carbon Dioxide (22-30) mmol/L BUN (7-17) mg/dL Creatinine (0.6-1.2) mg/dL Calcium (8.4-10.2) mg/dL Total Bilirubin (0.1-1.2) mg/dL Ammonia (25-60) umol/L Troponin T (0.00-0.029) ng/mL Total Protein (6.3-8.2) g/dL Albumin (3.9-5) g/dL LDL Cholesterol Direct (50-130) mg/dL HDL Cholesterol (40-59) mg/dL Salicylates (2.8-20.0) mg/dL Acetaminophen (10.0-30.0) ug/mL Assessment and Plan Assessment: 1. GI bleed 2. Altered mental status 3. Anemia-possibly secondary to the GI bleed 4. Acute kidney injury 5. Alcoholic liver disease Plan: 1. Patient admitted into the intensive care unit 2. Patient to be transfused with packed red blood cells. We will monitor CBC. 3. Started on IV proton pump inhibitor and octreotide. 4. Consult to nephrology and gastroenterology 5. We will also place patient on CIWA protocol. DVT prophylaxis: Sequential compression device CODE STATUS: Full code
--- NOTE | 2022-03-04 00:20 | Cat Scan Report ---
CT ABDOMEN AND PELVIS WITHOUT CONTRAST INDICATION / CLINICAL INFORMATION: GI bleed. TECHNIQUE: Axial CT images were obtained through the abdomen and pelvis without IV contrast. All CT scans at this location are performed using CT dose reduction for ALARA by means of automated exposure control. Limited by motion artifact. COMPARISON: None available. FINDINGS: LOWER CHEST: Patchy infiltrates at the lingula greater than right middle lobe. LIVER: Cirrhotic configuration. GALLBLADDER: Surgically absent. BILE DUCTS: No significant abnormality. PANCREAS: No significant abnormality. SPLEEN: Enlarged measuring 13.5 cm. ADRENALS: No significant abnormality. RIGHT KIDNEY / URETER: No significant abnormality. LEFT KIDNEY / URETER: No significant abnormality. STOMACH / SMALL BOWEL: No significant abnormality. COLON: No significant abnormality. APPENDIX: No significant abnormality. PERITONEUM: Large volume ascites. No free air. No fluid collection. LYMPH NODES: No significant adenopathy. VASCULAR STRUCTURES: No significant abnormality. URINARY BLADDER: No significant abnormality. REPRODUCTIVE ORGANS: Left adnexal dermoid measuring 5.4 cm. ADDITIONAL FINDINGS: Soft tissue anasarca. SKELETAL SYSTEM: No significant abnormality. IMPRESSION: 1. Cirrhosis with portal hypertension including splenomegaly and large volume ascites. The presence o f varices is not well evaluated due to motion artifact and the lack of contrast. 2. 5.4 cm left adnexal dermoid. Signer Name: Barrera Crawford MD Signed: 03/04/2022 12:15 AM Workstation Name: [id number]
[2022-03-04] MEDS ORDERED: LACTULOSE ENEMA 1000 ML PR ONE (00:25)
[2022-03-04] MEDS ORDERED: LORazepam 2 MG/ML VIAL IV ONE (01:28)
[2022-03-04] MEDS ORDERED: LORazepam 2 MG/ML VIAL IV PRN ×3 (07:14)
--- NOTE | 2022-03-04 07:15 | Gastroenterology Consultation ---
History of Present Illness - Reason for Consult Consult date: 03/04/22 GI bleed Requesting physician: SHARON BARFIELD - History of Present Illness This is a 51 yo female with h/o alcohol abuse and CKD brought to the ED overnight by EMS for AMS. Found altered on the floor. Patient confused and not able to give history. No following commands. Per ED, patient noted to be hypotensive and tachycardic on arrival. Work up in the ED showed Hgb at 5.8, coagulopathy INR 1.8, low platelets. Noted to have dried blood by her mouth and maroon colored stools per rectum. Also noted to have distended abdomen with ascites. overnight, received 2 units of PRBCs and currently receiving third unit of PRBC. Received vitamin K, ceftriaxone, and has been on protonix and octreotide drip. Patient is on NC O2 at 2L. medication list reviewed. Past History Past Medical History: other (ALCOHOLIC, LIVER CA, ON DIALYSIS) Past Surgical History: hysterectomy Social history: no significant social history, smoking (Current daily smoker), alcohol abuse Medications and Allergies Allergies Allergy/AdvReac Type Severity Reaction Status Date / Time Penicillins Allergy Rash Verified 03/03/22 17:17 Home Medications Medication Instructions Recorded Confirmed Last Taken Type FLUoxetine [PROzac] 20 mg PO QDAY #30 capsule 04/27/16 12/30/16 Unknown Rx Folic Acid 1 tab PO QDAY #30 tab 04/27/16 12/30/16 Unknown Rx Multivitamin Tab [Multiple Vitamin 1 each PO ONCE #30 tablet 04/27/16 12/30/16 Unknown Rx TAB (Theragran)] Thiamine [Vitamin B-1] 100 mg PO QDAY #30 tablet 04/27/16 12/30/16 Unknown Rx traZODone [Desyrel] 50 mg PO QHS #30 tab 04/27/16 12/30/16 Unknown Rx chlordiazePOXIDE [Librium] 25 mg PO Q6H #10 capsule 08/11/20 Unknown Rx Active Meds: Active Medications Acetaminophen (Acetaminophen 650 Mg Rect Supp) 650 mg SC Q6H PRN PRN Reason: Pain MILD(1-3)/Fever >100.5/JOSEPH Octreotide Acetate 500 mcg/ (Sodium Chloride) 101 mls @ 5.05 mls/hr IV TITR ONE; Protocol Stop: 03/04/22 18:28 Last Admin: 03/03/22 23:33 Dose: 25 mcg/hr, 5.05 mls/hr Sodium Chloride (Nacl 0.9% 1000 Ml) 1,000 mls @ 125 mls/hr IV DIRECT FABIEN Morphine Sulfate (Morphine 2 Mg/1 Ml Inj) 2 mg IV Q4H PRN PRN Reason: Pain, Moderate (4-6) Morphine Sulfate (Morphine 4 Mg/1 Ml Inj) 4 mg IV Q4H PRN PRN Reason: Pain , Severe (7-10) Ondansetron HCl (Ondansetron 4 Mg/2 Ml Inj) 4 mg IV Q8H PRN PRN Reason: Nausea And Vomiting Sodium Chloride (Sodium Chloride 0.9% 10 Ml Flush Syringe) 10 ml IV BID FABIEN Sodium Chloride (Sodium Chloride 0.9% 10 Ml Flush Syringe) 10 ml IV PRN PRN PRN Reason: LINE FLUSH Review of Systems - Review of Systems ROS unobtainable: due to mental status Exam - Constitutional Vital Signs: Temp Pulse Resp BP Pulse Ox 97.7 F 103 H 10 L 119/72 100 03/04/22 06:14 03/04/22 06:59 03/04/22 06:59 03/04/22 06:59 03/04/22 06:59 General appearance: disheveled - Neck Neck: supple - Respiratory Respiratory effort: normal - Cardiovascular Rhythm: regular Heart Sounds: Present: S1 & S2 Extremity abnormal: edema - Gastrointestinal General gastrointestinal: Present: soft, distended Rectal Exam: stool bloody - Integumentary Integumentary: Present: jaundice - Neurologic Neurological: disoriented - Labs CBC & Chem 7: 03/03/22 21:35 03/03/22 19:44 Lab Results: Laboratory Results - last 24 hr 03/03/22 03/03/22 03/03/22 19:44 19:44 19:44 WBC RBC Hgb Hct MCV MCH MCHC RDW Plt Count Lymph % (Auto) Cecil % (Auto) Eos % (Auto) Baso % (Auto) Lymph # (Auto) Cecil # (Auto) Eos # (Auto) Baso # (Auto) Seg Neutrophils % Seg Neutrophils # PT 23.2 H INR 1.80 H ABG pH ABG pCO2 ABG pO2 ABG HCO3 ABG O2 Saturation ABG O2 Content ABG Base Excess ABG Hemoglobin ABG Carboxyhemoglobin ABG Methemoglobin Oxyhemoglobin FiO2 Sodium 137 Potassium 4.4 Chloride 101.7 Carbon Dioxide 20 L Anion Gap 20 BUN 86 H Creatinine 5.5 H Estimated GFR 8 BUN/Creatinine Ratio 16 Glucose 100 Lactic Acid 1.50 Calcium 8.0 L Total Bilirubin 3.60 H AST 31 ALT 12 Alkaline Phosphatase 126 Ammonia Total Creatine Kinase 31 Troponin T 0.057 H Total Protein 6.1 L Albumin 2.4 L Albumin/Globulin Ratio 0.6 Triglycerides 71 Cholesterol 75 LDL Cholesterol Direct 35 L HDL Cholesterol 21 L Cholesterol/HDL Ratio 3.57 Salicylates Acetaminophen Plasma/Serum Alcohol Blood Type Antibody Screen 03/03/22 03/03/22 03/03/22 19:44 19:44 19:44 WBC RBC Hgb Hct MCV MCH MCHC RDW Plt Count Lymph % (Auto) Cecil % (Auto) Eos % (Auto) Baso % (Auto) Lymph # (Auto) Cecil # (Auto) Eos # (Auto) Baso # (Auto) Seg Neutrophils % Seg Neutrophils # PT INR ABG pH ABG pCO2 ABG pO2 ABG HCO3 ABG O2 Saturation ABG O2 Content ABG Base Excess ABG Hemoglobin ABG Carboxyhemoglobin ABG Methemoglobin Oxyhemoglobin FiO2 Sodium Potassium Chloride Carbon Dioxide Anion Gap BUN Creatinine Estimated GFR BUN/Creatinine Ratio Glucose Lactic Acid Calcium Total Bilirubin AST ALT Alkaline Phosphatase Ammonia 141.0 H Total Creatine Kinase Troponin T Total Protein Albumin Albumin/Globulin Ratio Triglycerides Cholesterol LDL Cholesterol Direct HDL Cholesterol Cholesterol/HDL Ratio Salicylates < 0.3 L Acetaminophen 5.0 L Plasma/Serum Alcohol Blood Type Antibody Screen 03/03/22 03/03/22 03/03/22 19:44 20:13 21:30 WBC RBC Hgb Hct MCV MCH MCHC RDW Plt Count Lymph % (Auto) Cecil % (Auto) Eos % (Auto) Baso % (Auto) Lymph # (Auto) Cecil # (Auto) Eos # (Auto) Baso # (Auto) Seg Neutrophils % Seg Neutrophils # PT INR ABG pH 7.419 ABG pCO2 32.6 ABG pO2 87.7 ABG HCO3 20.6 ABG O2 Saturation 97.2 ABG O2 Content 6.5 ABG Base Excess -3.7 L ABG Hemoglobin 5.0 L ABG Carboxyhemoglobin 2.1 ABG Methemoglobin 0.4 Oxyhemoglobin 94.8 L FiO2 24 Sodium Potassium Chloride Carbon Dioxide Anion Gap BUN Creatinine Estimated GFR BUN/Creatinine Ratio Glucose Lactic Acid Calcium Total Bilirubin AST ALT Alkaline Phosphatase Ammonia Total Creatine Kinase Troponin T Total Protein Albumin Albumin/Globulin Ratio Triglycerides Cholesterol LDL Cholesterol Direct HDL Cholesterol Cholesterol/HDL Ratio Salicylates Acetaminophen Plasma/Serum Alcohol < 0.01 Blood Type O POSITIVE Antibody Screen Negative 03/03/22 21:35 WBC 6.2 RBC 1.69 L Hgb 5.8 L* Hct 17.2 L* MCV 102 H MCH 34 H MCHC 34 RDW 19.8 H Plt Count 75 L Lymph % (Auto) 20.1 Cecil % (Auto) 7.1 Eos % (Auto) 1.2 Baso % (Auto) 0.4 Lymph # (Auto) 1.3 Cecil # (Auto) 0.4 Eos # (Auto) 0.1 Baso # (Auto) 0.0 Seg Neutrophils % 71.2 H Seg Neutrophils # 4.4 PT INR ABG pH ABG pCO2 ABG pO2 ABG HCO3 ABG O2 Saturation ABG O2 Content ABG Base Excess ABG Hemoglobin ABG Carboxyhemoglobin ABG Methemoglobin Oxyhemoglobin FiO2 Sodium Potassium Chloride Carbon Dioxide Anion Gap BUN Creatinine Estimated GFR BUN/Creatinine Ratio Glucose Lactic Acid Calcium Total Bilirubin AST ALT Alkaline Phosphatase Ammonia Total Creatine Kinase Troponin T Total Protein Albumin Albumin/Globulin Ratio Triglycerides Cholesterol LDL Cholesterol Direct HDL Cholesterol Cholesterol/HDL Ratio Salicylates Acetaminophen Plasma/Serum Alcohol Blood Type Antibody Screen - Imaging CT Scan: report reviewed Assessment and Plan # GI bleed - likely upper GI bleed with variceal bleed vs PUD. - CT showing cirrhosis with portal hypertension and ascites. - BP improved with blood transfusion - Hgb at 5.8, coagulopathy INR 1.8, low platelets on arrival. - receiving 3rd unit of PRBC. - received vitamin K. Rec - cont with protonix and octreotide drip - ppx antibiotics - keep NPO - plan for EGD - recommend paracentesis for ascites - monitor H/H and INR serially and transfuse with Hgb goal >7 and INR <1.5 - attempted to reach family multiple times but unsuccessful. Tried all numbers listed. I have reached out to the behavioral health case manager to assist with locating family.
[2022-03-04] MEDS ORDERED: EPINEPHrine 1 MG/10 ML SYRINGE ONE (08:22)
[2022-03-04] MEDS ORDERED: WATER FOR IRRIG STERILE 250 ML BOTTLE IR ONE (08:23)
[2022-03-04] MEDS ORDERED: WATER FOR IRRIG STERILE 1,000 ML BOTTLE ONE (08:23)
[2022-03-04] MEDS ORDERED: propofoL 200 MG/20 ML VIAL IV ONE (08:31)
[2022-03-04] MEDS ORDERED: ETOMIDATE 20 MG/10 ML INJ IV ONE (08:45)
[2022-03-04] MEDS ORDERED: SUCCINYLCHOLINE CHLORIDE 200 MG/10 ML INJ MDV ONE ×2 (08:45→10:51)
[2022-03-04] MEDS ORDERED: ROCURONIUM 50 MG/5 ML INJ IV ONE (08:45)
--- NOTE | 2022-03-04 09:03 | Anesthesia Consultation ---
Anesthesia Consult and Med Hx Date of service: 03/04/22 - Airway Anesthetic Teeth Evaluation: Good (difficult to assess due to patient mental status. No obvious chipped or loose teeth. No dentures or partials. ) ROM Head & Neck: Adequate Mental/Hyoid Distance: Adequate Mallampati Class: Class III (limited assessment due to patient mental status) Intubation Access Assessment: Possibly Difficult - Pulmonary Exam CTA: Yes - Cardiac Exam Cardiac Exam: RRR - Pre-Operative Health Status ASA Pre-Surgery Classification: ASA4, Emergency Proposed Anesthetic Plan: General - Pulmonary Hx Smoking: Yes Hx Asthma: No COPD: No Hx Pneumonia: No Hx Sleep Apnea: No - Cardiovascular System Hx Hypertension: No - Endocrine Hx End Stage Renal Disease: Yes Hx Cirrhosis: Yes Hx Thyroid Disease: No - Hematic Hx Anemia: Yes (last hgb 5.8 on 03/03/22 - now s/p 3 units of PRBCs updated H&H pending.) - Other Systems Hx Alcohol Use: Yes Hx Substance Use: Yes (hx of poly substance abuse. ) Hx Obesity: No - Additional Comments Anesthesia Medical History Comments: Limited medical hx due to altered mental status.
--- NOTE | 2022-03-04 09:04 | Anesthesia Day of Surgery ---
Anesthesia Day of Surgery - Day of Surgery Patient Examined: Yes Patient H&P Reviewed: Yes Patient is NPO: Yes
--- NOTE | 2022-03-04 10:16 | XRay Report ---
CHEST 1 VIEW 03/04/2022 9:54 AM INDICATION / CLINICAL INFORMATION: S/p intubation. COMPARISON: One view of the chest from 03/03/2022. FINDINGS: SUPPORT DEVICES: An ET tube has been placed that terminates 2 cm above the edgar. Unchanged right Pe rmCath. HEART / MEDIASTINUM: No significant abnormality. LUNGS / PLEURA: There are increased bilateral airspace opacities. Lung volumes are similarly reduced. No significant pleural effusion. No pneumothorax. ADDITIONAL FINDINGS: No significant additional findings. IMPRESSION: Expected positioning of the ET tube with increased bilateral airspace opacities, likely representing worsening atelectasis/edema. Signer Name: Clifford Coon MD Signed: 03/04/2022 10:11 AM Workstation Name: [id number]
[2022-03-04] MEDS ORDERED: LIP THERAPY VASELINE TP PRN (10:47)
[2022-03-04] MEDS ORDERED: MINERAL OIL/PETROLATUM, WHITE OPHTH OINT 3.5 GM OU PRN (10:47)
[2022-03-04] MEDS ORDERED: fentaNYL 100 MCG/2 ML INJ IV PRN (10:47)
[2022-03-04] MEDS ORDERED: LIDOCAINE MPF (2%) 20 MG/1 ML VIAL 5 ML ONE (10:51)
[2022-03-04] MEDS ORDERED: PHENYLEPHRINE/NS 1,000 MCG/10 ML SYRINGE (OR USE) IV ONE (10:51)
--- NOTE | 2022-03-04 11:09 | Operative Report ---
Operative Report Operative Report: Date: 03/04/2022 Endoscopist: Clay Stephen MD (Jenny) EGD REPORT PREOPERATIVE DIAGNOSIS: GI bleed, hematemesis, cirrhosis, melena POSTOPERATIVE DIAGNOSIS: esophageal ulcer, esophagitis, duodenal ulceration, retained food debris, portal hypertensive gastropathy ESTIMATED BLOOD LOSS: minimal DESCRIPTION OF PROCEDURE: A high-resolution EGD scope was passed through the oropharynx, esophagus, stomach, and second portion of duodenum. The scope was carefully withdrawn. Retroflexion was performed in the stomach. At the end of the procedure, the scope was cleaned using normal technique. Vital signs monitored continuously throughout. SEDATION: Provided by Anesthesiology Services. COMPLICATIONS: None. FINDINGS: 1. Blood in the oropharynx seen. 2. A clean based white ulcer at the GE junction without any active bleeding noted. No obvious associated esophageal varices found. 3. LA grade B esophagitis at the distal esophagus noted. 4. Retained food/fluid debris in the gastric fundus and body with limited view. 5. Diffuse portal hypertensive gastropathy changes in the gastric body. No active bleeding. 6. A large area of ulceration in the duodenal sweep without high risk stigmata or active bleeding. RECOMMENDATIONS: 1. Monitor H/H and INR serially. Transfuse with hgb goal >7 and INR <1.5 2. Ppx antibiotics for cirrhosis patient with GI bleed. 3. Continue with PPI and octreotide IV 4. Keep NPO and avoid NG/OG given esophageal ulcer. 5. Consult nephrology for ROSEMARY on CKD and evaluation for HD. 6. Recommend CTA if active bleeding signs if nephrology ok with contrast and dialysis post contrast. 7. Discussed with IMS team and daughter on the phone. Clay Stephen MD (Jenny) [facility]
[2022-03-04] MEDS: fentaNYL DRIP Premix 2,000 MCG/100 ML BAG IV SCH (11:19)
[2022-03-04 12:00] LABS: Hematocrit 28.3 % (30.3-42.9); Hemoglobin 9.4 gm/dl (10.1-14.3); Mean Corpuscular HGB Conc 33 % (30-34); Mean Corpuscular Volume 94 fl (79-97)
[2022-03-04 12:05] LABS: Platelet Count 72 K/mm3 (140-440); Red Cell Distribution Width 23.5 % (13.2-15.2)
[2022-03-04] MEDS: PANTOPRAZOLE 80 MG in SODIUM CHLORIDE 0.9% 100 ML IV SCH ×2 (12:06→17:05)
[2022-03-04] MEDS: OCTREOTIDE 500 MCG in SODIUM CHLORIDE 0.9% 100 ML IV SCH ×2 (12:06→17:05)
[2022-03-04 12:20] LABS: Calcium 8.3 mg/dL (8.4-10.2)
[2022-03-04 12:37] LABS: ABG Base Excess -8.1 mmol/L (-2.0-3.0); ABG HCO3 17.6 mmol/L (20.0-26.0); ABG Methemoglobin 0.5 % (0.0-1.5); ABG Oxygen Saturation 99.4 % (95.0-99.0); ABG PCO2 36.4 mm Hg; ABG PH 7.301 pH Units (7.350-7.450)
[2022-03-04 13:00] LABS: INR 1.57 (0.87-1.13)
[2022-03-04 13:17] LABS: ABG PO2 273.8 mm Hg (80.0-90.0)
--- NOTE | 2022-03-04 15:31 | Progress Note ---
Assessment and Plan Critical care statement The high probability OF a clinically significant sudden or life-threatening deterioration of the cardiorespiratory system and endocrine system required my full and direct attention, intervention and postoperative management. The aggregate critical care time was 40 minutes. The time is in addition to time spent performing reported procedures but includes the followin: Data review and interpretation 2: Patient assessment and monitoring of vital signs 3: Documentation 4:: Medication orders and management - Patient Problems (1) Upper GI bleed Current Visit: Yes Status: Acute Plan to address problem: EGD findings 1. Blood in the oropharynx seen. 2. A clean based white ulcer at the GE junction without any active bleeding noted. No obvious associated esophageal varices found. 3. LA grade B esophagitis at the distal esophagus noted. 4. Retained food/fluid debris in the gastric fundus and body with limited view. 5. Diffuse portal hypertensive gastropathy changes in the gastric body. No active bleeding. 6. A large area of ulceration in the duodenal sweep without high risk stigmata or active bleeding. RECOMMENDATIONS per GI 1. Monitor H/H and INR serially. Transfuse with hgb goal >7 and INR <1.5 2. Ppx antibiotics for cirrhosis patient with GI bleed. 3. Continue with PPI and octreotide IV 4. Keep NPO and avoid NG/OG given esophageal ulcer. 5. Consult nephrology for ROSEMARY on CKD and evaluation for HD. 6. Recommend CTA if active bleeding signs if nephrology ok with contrast and dialysis post contrast. Continue Protonix drip and IV fluids (2) Acute metabolic encephalopathy Current Visit: Yes Status: Acute (3) Symptomatic anemia Current Visit: Yes Status: Acute Plan to address problem: Transfused multiple units of packed red blood cell Hemoglobin and hematocrit have improved from 5.8/17.2 to 9.4/28.3 (4) ROSEMARY (acute kidney injury) Current Visit: Yes Status: Acute Plan to address problem: ROSEMARY superimposed on CKD IV fluids for now Nephrology consult requested (5) Hypokalemia Onset Date: 04/22/16 Current Visit: No Status: Acute Plan to address problem: Supplemented (6) Acute encephalopathy Current Visit: Yes Status: Acute (7) Alcohol dependence Current Visit: Yes Status: Chronic Qualifiers: Substance use status: uncomplicated Qualified Code(s): F10.20 - Alcohol dependence, uncomplicated Plan to address problem: CIWA protocol initiated (8) DVT prophylaxis Current Visit: Yes Status: Acute Plan to address problem: On SCDs and GI prophylaxis (9) Advance care planning Current Visit: Yes Status: Acute Plan to address problem: Diagnosis prognosis and disease management discussed with family care plan discussed. Family acknowledges care plan +30 minutes care plan Subjective Date of service: 03/04/22 Principal diagnosis: Upper GI bleed Interval history: 51-year-old female with known history of alcoholic liver disease, chronic kidney disease brought into the emergency room today by EMS with altered mental status. She was said to have been found on the floor altered. She is currently nonverbal but arousable. Most of the history was gotten from the ER staff as family is not palpable Upon arrival in the emergency room, patient's blood pressure was about 90/40mmhg. She was tachycardic and obviously confused. Patient had some blood in her mouth and also had some melena stool. Work up in the ER,Hemoglobin was 5.8,Hematocrit was 17.2, BUN was 86 and creatinine of 5.5, ammonia 141, troponin 0.057, toxicology screen was essentially negative. Chest x-ray shows increased pulmonary vascularity with mild to moderate interstitial pulmonary edema. No pneumothorax. CT of the abdomen and pelvis shows cirrhosis with portal hypertension including splenomegaly and large volume ascites Patient is being prepared for blood transfusion. Patient started on proton pump inhibitor and octreotide IV. Biomedical Technician and the program director air talent on-call has been notified by the ER physician. 03/04/2022 Patient had EGD GI consult and follow-up/procedure appreciated Patient has a clean base white ulcer at the GE junction without any active bleeding. No obvious associated esophageal varices found. Distal esophagitis Diffuse portal hypertensive gastropathy changes in the gastric body A large area of ulceration in the duodenal sweep without high risk stigmata or active bleeding found. Objective - Constitutional Vitals: Vital Signs - 12hr 03/04/22 03/04/22 03/04/22 03:31 03:45 04:01 Temperature Pulse Rate 111 H 108 H 111 H Pulse Rate [ From Monitor] Respiratory 11 L 11 L 11 L Rate Blood Pressure 110/56 110/56 86/45 O2 Sat by Pulse 100 100 100 Oximetry 03/04/22 03/04/22 03/04/22 04:15 04:31 04:45 Temperature Pulse Rate 112 H 113 H 106 H Pulse Rate [ From Monitor] Respiratory 15 17 11 L Rate Blood Pressure 86/45 106/60 106/60 O2 Sat by Pulse 100 100 Oximetry 03/04/22 03/04/22 03/04/22 05:01 05:15 05:31 Temperature 97.6 F Pulse Rate 105 H 103 H 105 H Pulse Rate [ From Monitor] Respiratory 11 L 10 L 10 L Rate Blood Pressure 114/68 114/68 125/74 O2 Sat by Pulse 100 100 100 Oximetry 03/04/22 03/04/22 03/04/22 05:45 06:01 06:14 Temperature 97.7 F Pulse Rate 103 H 105 H 105 H Pulse Rate [ From Monitor] Respiratory 10 L 9 L 10 L Rate Blood Pressure 125/74 93/59 116/81 O2 Sat by Pulse 100 100 100 Oximetry 03/04/22 03/04/22 03/04/22 06:15 06:29 06:31 Temperature Pulse Rate 106 H 110 H 110 H Pulse Rate [ From Monitor] Respiratory 11 L 18 18 Rate Blood Pressure 93/59 116/81 116/81 O2 Sat by Pulse 100 100 100 Oximetry 03/04/22 03/04/22 03/04/22 06:45 06:59 07:01 Temperature Pulse Rate 106 H 103 H 103 H Pulse Rate [ From Monitor] Respiratory 11 L 10 L 10 L Rate Blood Pressure 116/81 119/72 119/72 O2 Sat by Pulse 100 100 100 Oximetry 03/04/22 03/04/22 03/04/22 07:15 07:29 07:31 Temperature 98.3 F Pulse Rate 99 H 97 H 97 H Pulse Rate [ From Monitor] Respiratory 10 L 11 L 11 L Rate Blood Pressure 119/72 89/53 89/53 O2 Sat by Pulse 100 100 100 Oximetry 03/04/22 03/04/22 03/04/22 07:45 07:59 08:01 Temperature 98.0 F Pulse Rate 103 H 98 H 98 H Pulse Rate [ From Monitor] Respiratory 13 17 17 Rate Blood Pressure 89/53 98/61 98/61 O2 Sat by Pulse 100 100 100 Oximetry 03/04/22 03/04/22 03/04/22 08:11 08:26 08:30 Temperature Pulse Rate 102 H 110 H 110 H Pulse Rate [ 110 H From Monitor] Respiratory 10 L 21 18 Rate Blood Pressure 98/61 135/73 O2 Sat by Pulse 100 95 96 Oximetry 03/04/22 03/04/22 03/04/22 08:35 08:40 08:51 Temperature 96.6 F L Pulse Rate 103 H 106 H 100 H Pulse Rate [ From Monitor] Respiratory 24 22 11 L Rate Blood Pressure 98/61 106/61 O2 Sat by Pulse 98 99 97 Oximetry 03/04/22 03/04/22 03/04/22 09:00 09:10 09:20 Temperature Pulse Rate 98 H 96 H 102 H Pulse Rate [ From Monitor] Respiratory 10 L 14 12 Rate Blood Pressure 114/73 105/50 115/66 O2 Sat by Pulse 100 100 100 Oximetry 03/04/22 03/04/22 03/04/22 09:31 09:40 09:50 Temperature Pulse Rate 102 H 111 H Pulse Rate [ From Monitor] Respiratory 11 L 13 Rate Blood Pressure 122/77 128/83 O2 Sat by Pulse 100 39 L 98 Oximetry 03/04/22 03/04/22 03/04/22 09:51 10:00 10:01 Temperature Pulse Rate 100 H 103 H 105 H Pulse Rate [ From Monitor] Respiratory 16 16 Rate Blood Pressure 116/60 115/61 O2 Sat by Pulse 100 100 Oximetry 03/04/22 03/04/22 03/04/22 10:11 10:21 10:30 Temperature 96.5 F L Pulse Rate 102 H 105 H 108 H Pulse Rate [ From Monitor] Respiratory 16 16 16 Rate Blood Pressure 118/68 113/62 111/59 O2 Sat by Pulse 100 100 100 Oximetry 03/04/22 03/04/22 03/04/22 10:41 10:51 10:53 Temperature 96.6 F L Pulse Rate 111 H 111 H Pulse Rate [ From Monitor] Respiratory 14 16 Rate Blood Pressure 125/66 126/66 O2 Sat by Pulse 100 100 Oximetry 03/04/22 03/04/22 03/04/22 11:00 11:11 11:21 Temperature Pulse Rate 114 H 115 H 114 H Pulse Rate [ From Monitor] Respiratory 15 16 13 Rate Blood Pressure 133/71 127/68 129/66 O2 Sat by Pulse 100 100 100 Oximetry 03/04/22 03/04/22 03/04/22 11:30 11:41 11:51 Temperature Pulse Rate 118 H 111 H 115 H Pulse Rate [ From Monitor] Respiratory 17 10 L 17 Rate Blood Pressure 138/78 120/68 114/69 O2 Sat by Pulse 100 100 100 Oximetry 03/04/22 03/04/22 03/04/22 12:00 12:11 12:21 Temperature 96.8 F L Pulse Rate 110 H 111 H 110 H Pulse Rate [ 110 H From Monitor] Respiratory 14 13 12 Rate Blood Pressure 122/60 116/61 120/65 O2 Sat by Pulse 100 100 100 Oximetry 03/04/22 03/04/22 03/04/22 12:28 12:30 13:00 Temperature Pulse Rate 110 H 111 H 107 H Pulse Rate [ From Monitor] Respiratory 11 L Rate Blood Pressure 121/66 109/58 O2 Sat by Pulse 100 100 Oximetry 03/04/22 03/04/22 03/04/22 13:09 13:10 13:21 Temperature Pulse Rate 111 H 107 H Pulse Rate [ From Monitor] Respiratory 13 16 Rate Blood Pressure 121/66 130/67 109/58 O2 Sat by Pulse 100 100 100 Oximetry 03/04/22 03/04/22 03/04/22 13:30 13:41 13:51 Temperature Pulse Rate 108 H 108 H 110 H Pulse Rate [ From Monitor] Respiratory 14 15 14 Rate Blood Pressure 117/68 112/66 111/63 O2 Sat by Pulse 97 96 95 Oximetry 03/04/22 03/04/22 03/04/22 14:00 14:11 14:21 Temperature Pulse Rate 112 H 111 H 112 H Pulse Rate [ From Monitor] Respiratory 18 17 17 Rate Blood Pressure 114/69 114/69 121/62 O2 Sat by Pulse 96 95 95 Oximetry 03/04/22 03/04/22 14:30 14:41 Temperature Pulse Rate 114 H 112 H Pulse Rate [ From Monitor] Respiratory 19 18 Rate Blood Pressure 120/70 118/64 O2 Sat by Pulse 94 95 Oximetry General appearance: Present: no acute distress, well-nourished - EENT Eyes: PERRL, EOM intact ENT: hearing intact, clear oral mucosa Ears: bilateral: normal - Neck Neck: supple, normal ROM - Respiratory Respiratory effort: normal Respiratory: bilateral: CTA - Breasts Breasts: normal - Cardiovascular Heart rate: 78 Rhythm: regular Heart Sounds: Present: S1 & S2. Absent: gallop, rub Extremities: pulses intact, No edema, normal color, Full ROM - Gastrointestinal General gastrointestinal: Present: soft, non-tender, non-distended, normal bowel sounds - Genitourinary Female genitourinary: normal - Integumentary Integumentary: clear, warm, dry - Musculoskeletal Musculoskeletal: 1, strength equal bilaterally - Neurologic Neurologic: moves all extremities - Psychiatric Psychiatric: memory intact, appropriate mood/affect, intact judgment & insight - Labs CBC & Chem 7: 03/04/22 11:03 03/04/22 11:03 Labs: Abnormal lab results 03/03/22 03/03/22 03/03/22 Range/Units 19:44 19:44 19:44 RBC (3.65-5.03) M/mm3 Hgb (10.1-14.3) gm/dl Hct (30.3-42.9) % MCV (79-97) fl MCH (28-32) pg RDW (13.2-15.2) % Plt Count (140-440) K/mm3 Seg Neutrophils % (40.0-70.0) % PT 23.2 H (12.2-14.9) Sec. INR 1.80 H (0.87-1.13) ABG pH (7.350-7.450) pH Units ABG pO2 (80.0-90.0) mm Hg ABG HCO3 (20.0-26.0) mmol/L ABG O2 Saturation (95.0-99.0) % ABG Base Excess (-2.0-3.0) mmol/L ABG Hemoglobin (12.0-16.0) gm/dl Oxyhemoglobin (95.0-99.0) % Carbon Dioxide 20 L (22-30) mmol/L BUN 86 H (7-17) mg/dL Creatinine 5.5 H (0.6-1.2) mg/dL Calcium 8.0 L (8.4-10.2) mg/dL Total Bilirubin 3.60 H (0.1-1.2) mg/dL Ammonia 141.0 H (25-60) umol/L Troponin T 0.057 H (0.00-0.029) ng/mL Total Protein 6.1 L (6.3-8.2) g/dL Albumin 2.4 L (3.9-5) g/dL LDL Cholesterol Direct 35 L (50-130) mg/dL HDL Cholesterol 21 L (40-59) mg/dL Salicylates (2.8-20.0) mg/dL Acetaminophen (10.0-30.0) ug/mL 03/03/22 03/03/22 03/03/22 Range/Units 19:44 19:44 21:30 RBC (3.65-5.03) M/mm3 Hgb (10.1-14.3) gm/dl Hct (30.3-42.9) % MCV (79-97) fl MCH (28-32) pg RDW (13.2-15.2) % Plt Count (140-440) K/mm3 Seg Neutrophils % (40.0-70.0) % PT (12.2-14.9) Sec. INR (0.87-1.13) ABG pH (7.350-7.450) pH Units ABG pO2 (80.0-90.0) mm Hg ABG HCO3 (20.0-26.0) mmol/L ABG O2 Saturation (95.0-99.0) % ABG Base Excess -3.7 L (-2.0-3.0) mmol/L ABG Hemoglobin 5.0 L (12.0-16.0) gm/dl Oxyhemoglobin 94.8 L (95.0-99.0) % Carbon Dioxide (22-30) mmol/L BUN (7-17) mg/dL Creatinine (0.6-1.2) mg/dL Calcium (8.4-10.2) mg/dL Total Bilirubin (0.1-1.2) mg/dL Ammonia (25-60) umol/L Troponin T (0.00-0.029) ng/mL Total Protein (6.3-8.2) g/dL Albumin (3.9-5) g/dL LDL Cholesterol Direct (50-130) mg/dL HDL Cholesterol (40-59) mg/dL Salicylates < 0.3 L (2.8-20.0) mg/dL Acetaminophen 5.0 L (10.0-30.0) ug/mL 03/03/22 03/04/22 03/04/22 Range/Units 21:35 11:03 11:03 RBC 1.69 L 3.00 L (3.65-5.03) M/mm3 Hgb 5.8 L* 9.4 L D (10.1-14.3) gm/dl Hct 17.2 L* 28.3 L D (30.3-42.9) % MCV 102 H (79-97) fl MCH 34 H (28-32) pg RDW 19.8 H 23.5 H (13.2-15.2) % Plt Count 75 L 72 L (140-440) K/mm3 Seg Neutrophils % 71.2 H (40.0-70.0) % PT 20.7 H (12.2-14.9) Sec. INR 1.57 H (0.87-1.13) ABG pH (7.350-7.450) pH Units ABG pO2 (80.0-90.0) mm Hg ABG HCO3 (20.0-26.0) mmol/L ABG O2 Saturation (95.0-99.0) % ABG Base Excess (-2.0-3.0) mmol/L ABG Hemoglobin (12.0-16.0) gm/dl Oxyhemoglobin (95.0-99.0) % Carbon Dioxide (22-30) mmol/L BUN (7-17) mg/dL Creatinine (0.6-1.2) mg/dL Calcium (8.4-10.2) mg/dL Total Bilirubin (0.1-1.2) mg/dL Ammonia (25-60) umol/L Troponin T (0.00-0.029) ng/mL Total Protein (6.3-8.2) g/dL Albumin (3.9-5) g/dL LDL Cholesterol Direct (50-130) mg/dL HDL Cholesterol (40-59) mg/dL Salicylates (2.8-20.0) mg/dL Acetaminophen (10.0-30.0) ug/mL 03/04/22 03/04/22 Range/Units 11:03 12:00 RBC (3.65-5.03) M/mm3 Hgb (10.1-14.3) gm/dl Hct (30.3-42.9) % MCV (79-97) fl MCH (28-32) pg RDW (13.2-15.2) % Plt Count (140-440) K/mm3 Seg Neutrophils % (40.0-70.0) % PT (12.2-14.9) Sec. INR (0.87-1.13) ABG pH 7.301 L (7.350-7.450) pH Units ABG pO2 273.8 H (80.0-90.0) mm Hg ABG HCO3 17.6 L (20.0-26.0) mmol/L ABG O2 Saturation 99.4 H (95.0-99.0) % ABG Base Excess -8.1 L (-2.0-3.0) mmol/L ABG Hemoglobin 9.2 L (12.0-16.0) gm/dl Oxyhemoglobin (95.0-99.0) % Carbon Dioxide 18 L (22-30) mmol/L BUN 79 H (7-17) mg/dL Creatinine 5.0 H (0.6-1.2) mg/dL Calcium 8.3 L (8.4-10.2) mg/dL Total Bilirubin (0.1-1.2) mg/dL Ammonia (25-60) umol/L Troponin T (0.00-0.029) ng/mL Total Protein (6.3-8.2) g/dL Albumin (3.9-5) g/dL LDL Cholesterol Direct (50-130) mg/dL HDL Cholesterol (40-59) mg/dL Salicylates (2.8-20.0) mg/dL Acetaminophen (10.0-30.0) ug/mL HEART Score - HEART Score Troponin: Troponin T 0.057 ng/mL (0.00-0.029) H 03/03/22 19:44
--- NOTE | 2022-03-04 15:40 | Cat Scan Report ---
NONENHANCED CT SCAN OF THE HEAD: INDICATION / CLINICAL INFORMATION: 51 years Female; Encephalopathy. TECHNIQUE: Routine CT head without contrast. All CT scans at this location are performed using CT dos e reduction for ALARA by means of automated exposure control. COMPARISON: None. FINDINGS: BRAIN / INTRACRANIAL CONTENTS: No acute hemorrhage, mass effect, midline shift, hydrocephalus, or acu te, large territorial infarct. No chronic infarction. Subtle volume loss in the left cerebellar hemis phere. Cerebral hemispheres volume and ventricular/sulcal size for age. No significant white matter a bnormality. CRANIOCERVICAL JUNCTION: No significant abnormality. ORBITS: No significant abnormality of visualized orbits. SINUSES / MASTOIDS: No significant abnormality of the visualized paranasal sinuses or mastoid air naresh ls. ADDITIONAL FINDINGS: None. IMPRESSION: No acute focal parenchymal lesion Signer Name: Misael Selby MD Signed: 03/04/2022 3:36 PM Workstation Name: [id number]
[2022-03-04 16:14] LABS: Hematocrit 28.4 % (30.3-42.9); Hemoglobin 9.3 gm/dl (10.1-14.3)
[2022-03-04] MEDS: SODIUM CHLORIDE 0.9% 1000 ML 1,000 ML IV SCH (16:18)
[2022-03-04] MEDS: LACTULOSE ENEMA 1000 ML PR SCH ×2 (17:04→21:17)
[2022-03-04] MEDS: cefTRIAXone/NS 1 GM/50 ML 1 GM/50 ML BAG IV SCH (17:05)
--- NOTE | 2022-03-04 17:39 | Consultation ---
History of Present Illness Consult date: 03/04/22 Requesting physician: SONJA SHAH Reason for consult: other (Upper GI bleed, acute metabolic encephalopathy) History of present illness: This is a 51-year-old female with known past medical history of alcoholic liver disease, HFpEF, recent PEA arrest at [facility] (01/2022), and CKD s/p HD from recent hospitalization, admitted for Acute blood loss anemia 2/2 Upper GIB s/p EGD and remains intubated on MVS. HISTORY PER DOCUMENTATION IN THE ED 51-year-old female with known history of alcoholic liver disease, chronic kidney disease brought into the emergency room today by EMS with altered mental status. She was said to have been found on the floor altered. She is currently nonverbal but arousable. Most of the history was gotten from the ER staff as family is not palpable Upon arrival in the emergency room, patient's blood pressure was about 90/40mmhg. She was tachycardic and obviously confused. Patient had some blood in her mouth and also had some melena stool. Work up in the ER,Hemoglobin was 5.8,Hematocrit was 17.2, BUN was 86 and creatinine of 5.5, ammonia 141, troponin 0.057, toxicology screen was essentially negative. Chest x-ray shows increased pulmonary vascularity with mild to moderate interstitial pulmonary edema. No pneumothorax. CT of the abdomen and pelvis shows cirrhosis with portal hypertension including splenomegaly and large volume ascites Patient is being prepared for blood transfusion. Patient started on proton pump inhibitor and octreotide IV. Patient seen and examined. Vitals, labs, medications,chart and imaging reviewed. Orally intubated during EGD procedure , remains on MVS - Vent setting: PRVC-35%,6,20,400 S/p EGD - esophagitis and ulcers at the GE junction and in the duodenum noted but no active bleeding. See report for full details Hypotension has improved with blood transfusions and volume resuscitation Past History Past Medical History: other (ALCOHOLIC, LIVER CA, ON DIALYSIS) Past Surgical History: hysterectomy Social history: no significant social history, smoking (Current daily smoker), alcohol abuse Medications and Allergies Allergies Allergy/AdvReac Type Severity Reaction Status Date / Time Penicillins Allergy Rash Verified 03/03/22 17:17 Home Medications Medication Instructions Recorded Confirmed Last Taken Type FLUoxetine [PROzac] 20 mg PO QDAY #30 capsule 04/27/16 12/30/16 Unknown Rx Folic Acid 1 tab PO QDAY #30 tab 04/27/16 12/30/16 Unknown Rx Multivitamin Tab [Multiple Vitamin 1 each PO ONCE #30 tablet 04/27/16 12/30/16 Unknown Rx TAB (Theragran)] Thiamine [Vitamin B-1] 100 mg PO QDAY #30 tablet 04/27/16 12/30/16 Unknown Rx traZODone [Desyrel] 50 mg PO QHS #30 tab 04/27/16 12/30/16 Unknown Rx chlordiazePOXIDE [Librium] 25 mg PO Q6H #10 capsule 08/11/20 Unknown Rx Active Meds: Active Medications Acetaminophen (Acetaminophen 650 Mg Rect Supp) 650 mg [place] Q6H PRN PRN Reason: Pain MILD(1-3)/Fever >100.5/JOSEPH Fentanyl (Fentanyl 100 Mcg/2 Ml Inj) 50 mcg IV Q10MIN PRN PRN Reason: ANALGESIA Hydrophilic Ointment (Lip Therapy Vaseline) 1 applic TP Q2HR PRN PRN Reason: Dry Lips Sodium Chloride (Nacl 0.9% 1000 Ml) 1,000 mls @ 125 mls/hr IV DIRECT FABIEN Last Admin: 03/04/22 16:18 Dose: 125 mls/hr Pantoprazole Sodium 80 mg/ (Sodium Chloride) 100 mls @ 10 mls/hr IV DIRECT FABIEN Last Admin: 03/04/22 17:05 Dose: 8 mg/hr, 10 mls/hr Ceftriaxone Sodium (Rocephin/Ns 1 Gm/50 Ml) 1 gm in 50 mls @ 100 mls/hr IV Q24H FABIEN Last Admin: 03/04/22 17:05 Dose: 100 mls/hr Fentanyl Citrate (Fentanyl Drip Premix) 2,000 mcg in 100 mls @ 3.655 mls/hr IV TITR FABIEN; Protocol Last Titration: 03/04/22 16:18 Dose: 1 mcg/kg/hr, 3.655 mls/hr Propofol (Diprivan 10 Mg/Ml) 1,000 mg in 100 mls @ 2.193 mls/hr IV TITR FABIEN; Protocol Last Titration: 03/04/22 17:23 Dose: 15 mcg/kg/min, 6.579 mls/hr Octreotide Acetate 500 mcg/ (Sodium Chloride) 101 mls @ 5.05 mls/hr IV TITR FABIEN; Protocol Last Admin: 03/04/22 17:05 Dose: 25 mcg/hr, 5.05 mls/hr Lactulose (Lactulose Enema 1000 Ml) 200 gm NH TID FABIEN Last Admin: 03/04/22 17:04 Dose: 200 gm Lorazepam (Lorazepam 2 Mg/Ml Vial) 2 mg IV Q1H PRN PRN Reason: CIWA-Ar 8-15 Lorazepam (Lorazepam 2 Mg/Ml Vial) 4 mg IV Q1H PRN PRN Reason: CIWA-Ar 16-25 Lorazepam (Lorazepam 2 Mg/Ml Vial) 4 mg IV Q15MIN PRN PRN Reason: CIWA-Ar >25 Multi-Ingred Cream/Lotion/Oil/Oint (Mineral Oil/Petrolatum, White Ophth Oint 3.5 Gm) 1 applic OU Q4HR PRN PRN Reason: Dry Eye(s) Ondansetron HCl (Ondansetron 4 Mg/2 Ml Inj) 4 mg IV Q8H PRN PRN Reason: Nausea And Vomiting Senna/Docusate Sodium (Sennosides/Docusate Sodium 8.6/50 Mg Tab) 1 tab FEEDTUBE BID [facility] Sodium Chloride (Sodium Chloride 0.9% 10 Ml Flush Syringe) 10 ml IV BID [facility] Last Admin: 03/04/22 12:08 Dose: 10 ml Sodium Chloride (Sodium Chloride 0.9% 10 Ml Flush Syringe) 10 ml IV PRN PRN PRN Reason: LINE FLUSH Review of Systems ROS unobtainable: due to endotracheal tube, due to mental status Physical Examination Vital signs: Vital Signs Temp Pulse Resp BP Pulse Ox 97.5 F L 108 H 16 96/54 100 03/03/22 17:08 03/03/22 17:08 03/03/22 17:08 03/03/22 17:08 03/03/22 17:08 Vitals reviewed General appearance: Present: no acute distress, other (Intubated and Sedated) Chronically ill looking, temporal wasting Orally intubated, no patient-ventilator dys-synchrony Right chest wall perm-cath - EENT Eyes: Present: PERRL - Respiratory Respiratory effort: normal Respiratory: bilateral: diminished, no rhonchi - Cardiovascular Rhythm: regular Heart Sounds: Present: S1 & S2 - Extremities Extremities: no ischemia, pulses intact, pulses symmetrical Extremity abnormal: edema - Peripheral Assessment Bilateral Lower Extremity Edema Type: Pitting Edema Degree: 2+ Capillary Refill: < 3 seconds Skin Temperature: Warm Generalized Edema Type: Non-pitting Capillary Refill: < 3 seconds Skin Temperature: Warm Peripheral Pulses: within normal limits - Abdominal General gastrointestinal: soft, distended, normal bowel sounds Ascites - Integumentary Integumentary: Present: warm, dry, pale - Psychiatric Psychiatric: other (Intubated and sedated) - Neurologic Neurologic: other (Intubated and sedated) Results - Laboratory Findings CBC and BMP: 03/05/22 06:20 03/05/22 06:20 ABG ABG pH 7.301 pH Units (7.350-7.450) L 03/04/22 12:00 ABG pCO2 36.4 mm Hg 03/04/22 12:00 ABG pO2 273.8 mm Hg (80.0-90.0) H 03/04/22 12:00 ABG O2 Saturation 99.4 % (95.0-99.0) H 03/04/22 12:00 PT/INR, D-dimer PT 20.7 Sec. (12.2-14.9) H 03/04/22 11:03 INR 1.57 (0.87-1.13) H 03/04/22 11:03 Abnormal lab findings: Abnormal Labs 03/03/22 03/03/22 03/03/22 19:44 19:44 19:44 RBC Hgb Hct MCV MCH RDW Plt Count Seg Neutrophils % PT 23.2 H INR 1.80 H ABG pH ABG pO2 ABG HCO3 ABG O2 Saturation ABG Base Excess ABG Hemoglobin Oxyhemoglobin Carbon Dioxide 20 L BUN 86 H Creatinine 5.5 H Calcium 8.0 L Total Bilirubin 3.60 H Ammonia 141.0 H Troponin T 0.057 H Total Protein 6.1 L Albumin 2.4 L LDL Cholesterol Direct 35 L HDL Cholesterol 21 L Salicylates Acetaminophen 03/03/22 03/03/22 03/03/22 19:44 19:44 21:30 RBC Hgb Hct MCV MCH RDW Plt Count Seg Neutrophils % PT INR ABG pH ABG pO2 ABG HCO3 ABG O2 Saturation ABG Base Excess -3.7 L ABG Hemoglobin 5.0 L Oxyhemoglobin 94.8 L Carbon Dioxide BUN Creatinine Calcium Total Bilirubin Ammonia Troponin T Total Protein Albumin LDL Cholesterol Direct HDL Cholesterol Salicylates < 0.3 L Acetaminophen 5.0 L 03/03/22 03/04/22 03/04/22 21:35 11:03 11:03 RBC 1.69 L 3.00 L Hgb 5.8 L* 9.4 L D Hct 17.2 L* 28.3 L D MCV 102 H MCH 34 H RDW 19.8 H 23.5 H Plt Count 75 L 72 L Seg Neutrophils % 71.2 H PT 20.7 H INR 1.57 H ABG pH ABG pO2 ABG HCO3 ABG O2 Saturation ABG Base Excess ABG Hemoglobin Oxyhemoglobin Carbon Dioxide BUN Creatinine Calcium Total Bilirubin Ammonia Troponin T Total Protein Albumin LDL Cholesterol Direct HDL Cholesterol Salicylates Acetaminophen 03/04/22 03/04/22 03/04/22 11:03 12:00 15:30 RBC Hgb 9.3 L Hct 28.4 L MCV MCH RDW Plt Count Seg Neutrophils % PT INR ABG pH 7.301 L ABG pO2 273.8 H ABG HCO3 17.6 L ABG O2 Saturation 99.4 H ABG Base Excess -8.1 L ABG Hemoglobin 9.2 L Oxyhemoglobin Carbon Dioxide 18 L BUN 79 H Creatinine 5.0 H Calcium 8.3 L Total Bilirubin Ammonia Troponin T Total Protein Albumin LDL Cholesterol Direct HDL Cholesterol Salicylates Acetaminophen - Diagnostic Findings Chest x-ray: image reviewed Assessment and Plan Acute Hypoxic Respiratory Failure on MVS Acute Blood Loss Anemia secondary to Upper GI Bleed Thrombocytopenia-Chronic Acute Metabolic Encephalopathy ETOH Abuse Alcoholic Liver Cirrhosis with Ascites Hyperammonemia Acute on Chronic Kidney Disease on HD Daily assessment for readiness to wean. Patient to remain on full support today SAT/SBT in the morning Will need therapeutic paracentesis and supportive HD prior to extubation -Titrate supplemental oxygen to keep SpO2 89-92% -CXR, ABG as clinically indicated -Fentanyl infusion for pain management. Titrate to CPOT 0-2 -Monitoring renal function, hemodynamics and electrolyte profile -Replete electrolytes as clinically indicated -Empiric antibiotics therapy for SBP- on Ceftriaxone. She has a documented Penicillin allergy is a rash -Accuchecks with glycemic control. target blood glucose 140-180 mg/dL. Avoid hypoglycemia -VTE prophylaxis- contraindicated at this time- patient has UGIB, s/p PRBC and she has thrombocytopenia -SCDs to lower extremities -Supportive transfusions to keep HgB >7g/dL -Avoid nephrotoxins and renally dose all medications -Renal consult for supportive HD as clinically indicated -Stress ulcer prophylaxis- on therapeutic Pantoprazole infusion -Continue with Octreotide -Mobility, frequent turning, off loading per facility protocol to prevent pressure ulcers -Maintain sleep wake cycle, avoid benzodiazepines. -Lactulose Per rectum, strict NPO for now -Substance abuse counselling once she is liberated from MVS and is able to participate in the discussions CONDITION:CRITICAL PROGNOSIS: GUARDED CODE STATUS; FULL CODE The high probability of a clinically significant, sudden or life threatening deterioration of the respiratory, GI system required my full and direct attention, intervention and personal management. The aggregate critical care time was [35] minutes. This time is in addition to time spent performing reported procedures but includes the following: [x] Data Review and interpretation [x] Patient assessment and monitoring of vital signs [x] Documentation [x] Medication orders and management
--- NOTE | 2022-03-04 18:13 | Consultation ---
History of Present Illness - Reason for Consult Consult date: 03/04/22 acute renal failure - History of Present Illness This is a 51-year-old woman with history of CKD and alcoholic liver disease who was brought in by EMS with altered mental status. She was reportedly found down. She was subsequently admitted for further workup and nephrology was consulted for management of acute kidney failure. History has been obtained from chart as patient is intubated. Past History Past Medical History: other (ALCOHOLIC, LIVER CA, ON DIALYSIS) Past Surgical History: hysterectomy Social history: no significant social history, smoking (Current daily smoker), alcohol abuse Medications and Allergies Allergies Allergy/AdvReac Type Severity Reaction Status Date / Time Penicillins Allergy Rash Verified 03/03/22 17:17 Home Medications Medication Instructions Recorded Confirmed Last Taken Type FLUoxetine [PROzac] 20 mg PO QDAY #30 capsule 04/27/16 12/30/16 Unknown Rx Folic Acid 1 tab PO QDAY #30 tab 04/27/16 12/30/16 Unknown Rx Multivitamin Tab [Multiple Vitamin 1 each PO ONCE #30 tablet 04/27/16 12/30/16 Unknown Rx TAB (Theragran)] Thiamine [Vitamin B-1] 100 mg PO QDAY #30 tablet 04/27/16 12/30/16 Unknown Rx traZODone [Desyrel] 50 mg PO QHS #30 tab 04/27/16 12/30/16 Unknown Rx chlordiazePOXIDE [Librium] 25 mg PO Q6H #10 capsule 08/11/20 Unknown Rx Active Meds: Active Medications Acetaminophen (Acetaminophen 650 Mg Rect Supp) 650 mg [place] Q6H PRN PRN Reason: Pain MILD(1-3)/Fever >100.5/JOSEPH Fentanyl (Fentanyl 100 Mcg/2 Ml Inj) 50 mcg IV Q10MIN PRN PRN Reason: ANALGESIA Hydrophilic Ointment (Lip Therapy Vaseline) 1 applic TP Q2HR PRN PRN Reason: Dry Lips Sodium Chloride (Nacl 0.9% 1000 Ml) 1,000 mls @ 125 mls/hr IV DIRECT [facility] Last Admin: 03/04/22 16:18 Dose: 125 mls/hr Pantoprazole Sodium 80 mg/ (Sodium Chloride) 100 mls @ 10 mls/hr IV DIRECT [facility] Last Admin: 03/04/22 17:05 Dose: 8 mg/hr, 10 mls/hr Ceftriaxone Sodium (Rocephin/Ns 1 Gm/50 Ml) 1 gm in 50 mls @ 100 mls/hr IV Q24H [facility] Last Admin: 03/04/22 17:05 Dose: 100 mls/hr Fentanyl Citrate (Fentanyl Drip Premix) 2,000 mcg in 100 mls @ 3.655 mls/hr IV TITR FABIEN; Protocol Last Titration: 03/04/22 16:18 Dose: 1 mcg/kg/hr, 3.655 mls/hr Propofol (Diprivan 10 Mg/Ml) 1,000 mg in 100 mls @ 2.193 mls/hr IV TITR FABI[facility]; Protocol Last Titration: 03/04/22 17:23 Dose: 15 mcg/kg/min, 6.579 mls/hr Octreotide Acetate 500 mcg/ (Sodium Chloride) 101 mls @ 5.05 mls/hr IV TITR [facility]; Protocol Last Admin: 03/04/22 17:05 Dose: 25 mcg/hr, 5.05 mls/hr Lactulose (Lactulose Enema 1000 Ml) 200 gm ME TID [facility] Last Admin: 03/04/22 17:04 Dose: 200 gm Lorazepam (Lorazepam 2 Mg/Ml Vial) 2 mg IV Q1H PRN PRN Reason: CIWA-Ar 8-15 Lorazepam (Lorazepam 2 Mg/Ml Vial) 4 mg IV Q1H PRN PRN Reason: CIWA-Ar 16-25 Lorazepam (Lorazepam 2 Mg/Ml Vial) 4 mg IV Q15MIN PRN PRN Reason: CIWA-Ar >25 Multi-Ingred Cream/Lotion/Oil/Oint (Mineral Oil/Petrolatum, White Ophth Oint 3.5 Gm) 1 applic OU Q4HR PRN PRN Reason: Dry Eye(s) Ondansetron HCl (Ondansetron 4 Mg/2 Ml Inj) 4 mg IV Q8H PRN PRN Reason: Nausea And Vomiting Senna/Docusate Sodium (Sennosides/Docusate Sodium 8.6/50 Mg Tab) 1 tab FEEDTUBE BID [facility] Sodium Chloride (Sodium Chloride 0.9% 10 Ml Flush Syringe) 10 ml IV BID [facility] Last Admin: 03/04/22 12:08 Dose: 10 ml Sodium Chloride (Sodium Chloride 0.9% 10 Ml Flush Syringe) 10 ml IV PRN PRN PRN Reason: LINE FLUSH Review of Systems ROS unobtainable: due to mental status Exam - Vital Signs Vital signs: Vital Signs Temp Pulse Resp BP Pulse Ox 97.5 F L 108 H 16 96/54 100 03/03/22 17:08 03/03/22 17:08 03/03/22 17:08 03/03/22 17:08 03/03/22 17:08 - Physical Exam Narrative exam: General: Sedated. Intubated. HEENT: Oral mucosa moist Neck: Supple, no JVD Chest: Intubated. Mechanical breath sounds. Heart: RRR, S1 and S2, no pericardial rub Abdomen: Soft, nontender, no renal bruit Extremity: No peripheral cyanosis, edema Neurological: Alert, awake, no asterixis Dermatology: No skin rash Psych: Unable to assess Musculoskeletal: No joint effusion Results - Lab Results 03/04/22 15:30 03/04/22 11:03 Most recent lab results ABG pH 7.301 pH Units (7.350-7.450) L 03/04/22 12:00 ABG pCO2 36.4 mm Hg 03/04/22 12:00 ABG pO2 273.8 mm Hg (80.0-90.0) H 03/04/22 12:00 ABG HCO3 17.6 mmol/L (20.0-26.0) L 03/04/22 12:00 ABG O2 Saturation 99.4 % (95.0-99.0) H 03/04/22 12:00 Calcium 8.3 mg/dL (8.4-10.2) L 03/04/22 11:03 Assessment and Plan Acute kidney injury, likely secondary to ATN from ABLA Acute blood loss anemia Acidosis Hypotension, improved post transfusion Acute encephalopathy Acute respiratory failure, s/p intubation Check renal ultrasound Check urinalysis, UPCR Start sodium bicarb tabs Transfuse for hemoglobin less than 7 Keep MAP more than 65 No immediate indication for HD Renally dose medications Avoid nephrotoxins Renal diet
[2022-03-04 18:15] LABS: Bilirubin,Urine NEG (Negative); Blood,Urine NEG (Negative); Color,Urine Amber (Yellow); Protein,Urine <15 mg/dL mg/dL (Negative); Urobilinogen,Urine < 2.0 mg/dL (<2.0)
[2022-03-04] MEDS: SODIUM BICARBONATE 650 MG TAB PO SCH (20:52)
[2022-03-04] MEDS: SENNOSIDES/DOCUSATE SODIUM 8.6/50 MG TAB FEEDTUBE SCH (22:00)
[2022-03-05] MEDS: SODIUM CHLORIDE 0.9% 1000 ML 1,000 ML IV SCH (00:41)
[2022-03-05 00:49] LABS: Hematocrit 27.2 % (30.3-42.9); Hemoglobin 8.9 gm/dl (10.1-14.3)
[2022-03-05] MEDS: PANTOPRAZOLE 80 MG in SODIUM CHLORIDE 0.9% 100 ML IV SCH ×3 (02:06→23:41)
--- NOTE | 2022-03-05 04:33 | XRay Report ---
CHEST 1 VIEW 03/05/2022 2:16 AM INDICATION / CLINICAL INFORMATION: follow up respiratory failure. COMPARISON: Previous day. FINDINGS: SUPPORT DEVICES: Unchanged. HEART / MEDIASTINUM: Lung volumes remain diminished with bilateral opacity. Overall mild improvement. LUNGS / PLEURA: No significant pulmonary or pleural abnormality. No pneumothorax. ADDITIONAL FINDINGS: No significant additional findings. IMPRESSION: Mild improving pneumonia. Signer Name: Barrera Crawford MD Signed: 03/05/2022 4:28 AM Workstation Name: [id number]
[2022-03-05 04:47] LABS: ABG HCO3 17.9 mmol/L (20.0-26.0); ABG Methemoglobin 0.7 % (0.0-1.5); ABG Oxygen Saturation 98.7 % (95.0-99.0); ABG PCO2 38.1 mm Hg; ABG PH 7.29 pH Units (7.350-7.450); ABG PO2 145.8 mm Hg (80.0-90.0)
[2022-03-05 07:09] LABS: Basophils # (Auto) 0.1 K/mm3 (0.0-0.1); Basophils % (Auto) 0.7 % (0.0-1.8); Eosinophils # (Auto) 0.2 K/mm3 (0.0-0.4); Eosinophils % (Auto) 2.1 % (0.0-4.3); Hematocrit 26.7 % (30.3-42.9); Hemoglobin 8.5 gm/dl (10.1-14.3); Lymphocytes # (Auto) 1.5 K/mm3 (1.2-5.4); Lymphocytes % (Auto) 14.1 % (13.4-35.0); Mean Corpuscular HGB Conc 32 % (30-34); Mean Corpuscular Volume 95 fl (79-97); Monocytes # (Auto) 0.5 K/mm3 (0.0-0.8); Monocytes % (Auto) 4.4 % (0.0-7.3)
[2022-03-05 07:10] LABS: Platelet Count 94 K/mm3 (140-440); Red Cell Distribution Width 24.1 % (13.2-15.2)
[2022-03-05] MEDS: fentaNYL DRIP Premix 2,000 MCG/100 ML BAG IV SCH (07:16)
[2022-03-05 07:17] LABS: INR 1.56 (0.87-1.13)
[2022-03-05] MEDS: D5W/0.45% NACL 1,000 ML IV SCH ×2 (09:00→22:33)
[2022-03-05] MEDS: SODIUM BICARBONATE 650 MG TAB PO SCH ×3 (09:14→19:20)
[2022-03-05] MEDS: SENNOSIDES/DOCUSATE SODIUM 8.6/50 MG TAB FEEDTUBE SCH (09:14)
[2022-03-05] MEDS: LACTULOSE ENEMA 1000 ML PR SCH ×3 (09:45→22:08)
--- NOTE | 2022-03-05 11:35 | Progress Note ---
Assessment and Plan Assessment and plan: This is a 51-year-old female with known past medical history of alcoholic liver disease, HFpEF, recent PEA arrest at [facility] (01/2022), and CKD s/p HD from recent hospitalization, admitted for Acute blood loss anemia 2/2 Upper GIB Hospital Course to Date: 03/04: Patient had EGD. GI consult and follow-up/procedure appreciated. Patient has a clean base white ulcer at the GE junction without any active bleeding. No obvious associated esophageal varices found. Distal esophagitis. Diffuse portal hypertensive gastropathy changes in the gastric body. A large area of ulceration in the duodenal sweep without high risk stigmata or active bleeding found. 03/05: Patient remains intubated and sedated. On protonix and octreotide gtt per GI. No report of any bleeding overnight. GI recommendations noted. Worsen renal function this morning with anuria, on continuous IVF for now. Per Nephro no indication for HD at this time. Will switch IVF to D51/2NS, close monitor of BG level. Continue to monitor H&H, coags, and liver function. US paracentesis pending. D/W CCM plan to rest patient on the vent over the weekend, will attempt SAT/SBT in the am. Assessment and Plan #Acute Blood Loss Anemia #Upper GI Bleed #Thrombocytopenia-Chronic - Presented with AMS, hemetasis, melena, and low H&H - s/p 3units of PRBCs; s/p Vitamin K - GI consulted, appreciate recommendations - 03/04 s/p EGD- esophagitis and ulcers at the GE junction and in the duodenum noted but no active bleeding. See report for full details - Continue Protonix and octreotide gtts per GI. Avoid NG/OGT - Continue continuous IVF, swithed to D51/2NS at 75ml/hr - Continue to monitor H&H and coags - Transfuse for Hgb less than 7 - NOT candidate for AC due to high risk for bleeding #Alcoholic Liver Cirrhosis with Ascites #Hyperammonemia - Ammonia level 73 this am, appear jaundice, with anasarca and ascites - Patient is stick NPO, continue lactulose CA - Trend LFTs, H&H, and coags - US paracentesis pending - Continue current IV abx- Rocephin - Repeat ammonia level in the am - GI consulted, appreciate recommendations #Acute Hypoxic Respiratory Failure - Intubated during EGD procedure on 03/04 for airway protection - Vent setting: PRVC-35%,6,20,400 - AM ABG noted - CCM consulted, appreciate recommendations - VAP bundle addressed - Aspiration precaution HOB above 30 - Daily ABG and CXR - Continue SPO2 monitoring for SPO2 goal above 92% - D/W CCM plan to rest patient on the vent over the weekend, will attempt S AT/SBT in the am #Acute Metabolic Encephalopathy #ETOH Abuse - probably due to acute blood loss vs Hyperammonia due to liver disease - Now intubated and sedated, on fentanyl gtt - Continue CA Lactulose - Titrate sedation for RASS goal of 0 to -1 - Plan for SAT/SBT tomorrow - Consider CIWA procol once off extuabted and off sedation - repeat ammonia level in the am #Acute on Chronic Kidney Disease - Per records patient was recent hospitalized at [facility] s/p PEAa arrest and required HD - Rt chest Permacath present, but no outpatient HD treatment since discharge per patient's daughter - Nephrology on consult, appreciated recommendation - No indication for HD at this time - Strict intake and output - Avoid nephrotoxic medications; Renally dose medications - Senior in place- no UOP - Continue IVF for now, switched to D51/2NS at 75ml/hr - Monitor and replace electrolytes as needed #GI/DVT Prophylaxis - PPI- Protonix gtt - SCDs to bilateral lower extremities while in bed #Advance Care Planning - Disease education data, care plan, diagnoses, and prognosis were discussed with patient's daughter via phone. Patient is a FULL code. Patient family acknowledged understanding and agreement with current care plan. The high probability of a clinically significant, sudden or life threatening deterioration of the [multiple] system(s) required my full and direct attention, intervention and personal management. The aggregate critical care time was [60] minutes. This time is in addition to time spent performing reported procedures but includes the following: [x] Data Review and interpretation [x] Patient assessment and monitoring of vital signs [x] Documentation [x] Medication orders and management Disposition Plan: ICU Total Time Spent with Patient (Minutes): 60 History Interval history: Patient seen and examined at the bedside. Intubated and sedated, open eyes with mild stimuli but does not follow any commands. Remains on Protonix, octreotide gtt. No bleeding reported from overnight, VSS. Hospitalist Physical - Constitutional Vitals: Temp Pulse Resp BP Pulse Ox 98.5 F 109 H 19 104/55 99 03/05/22 07:13 03/05/22 09:00 03/05/22 09:00 03/05/22 09:00 03/05/22 07:45 General appearance: Present: no acute distress, other (Intubated and Sedated) - EENT Eyes: Present: PERRL - Respiratory Respiratory effort: normal Respiratory: bilateral: diminished - Cardiovascular Rhythm: regular Heart Sounds: Present: S1 & S2 - Extremities Extremities: no ischemia, pulses intact, pulses symmetrical Extremity abnormal: edema - Peripheral Assessment Bilateral Lower Extremity Edema Type: Pitting Edema Degree: 3+ Capillary Refill: < 3 seconds Skin Temperature: Warm Generalized Edema Type: Non-pitting Capillary Refill: < 3 seconds Skin Temperature: Warm Peripheral Pulses: within normal limits - Abdominal General gastrointestinal: soft, distended, normal bowel sounds - Integumentary Integumentary: Present: warm, dry, pale - Psychiatric Psychiatric: other (Intubated and sedated) - Neurologic Neurologic: other (Intubated and sedated) - Allied Health Allied health notes reviewed: nursing, case management HEART Score - HEART Score Troponin: Troponin T 0.057 ng/mL (0.00-0.029) H 03/03/22 19:44 Results - Labs CBC & Chem 7: 03/05/22 16:52 03/05/22 06:20 Labs: Laboratory Last Values WBC 10.9 K/mm3 (4.5-11.0) 03/05/22 06:20 RBC 2.80 M/mm3 (3.65-5.03) L 03/05/22 06:20 Hgb 8.5 gm/dl (10.1-14.3) L 03/05/22 06:20 Hct 26.7 % (30.3-42.9) L 03/05/22 06:20 MCV 95 fl (79-97) 03/05/22 06:20 MCH 31 pg (28-32) 03/05/22 06:20 MCHC 32 % (30-34) 03/05/22 06:20 RDW 24.1 % (13.2-15.2) H 03/05/22 06:20 Plt Count 94 K/mm3 (140-440) L 03/05/22 06:20 Lymph % (Auto) 14.1 % (13.4-35.0) 03/05/22 06:20 [place] % (Auto) 4.4 % (0.0-7.3) 03/05/22 06:20 Eos % (Auto) 2.1 % (0.0-4.3) 03/05/22 06:20 Baso % (Auto) 0.7 % (0.0-1.8) 03/05/22 06:20 Lymph # (Auto) 1.5 K/mm3 (1.2-5.4) 03/05/22 06:20 [place] # (Auto) 0.5 K/mm3 (0.0-0.8) 03/05/22 06:20 Eos # (Auto) 0.2 K/mm3 (0.0-0.4) 03/05/22 06:20 Baso # (Auto) 0.1 K/mm3 (0.0-0.1) 03/05/22 06:20 Seg Neutrophils % 78.7 % (40.0-70.0) H 03/05/22 06:20 Seg Neutrophils # 8.6 K/mm3 (1.8-7.7) H 03/05/22 06:20 PT 20.6 Sec. (12.2-14.9) H 03/05/22 06:20 INR 1.56 (0.87-1.13) H 03/05/22 06:20 ABG pH 7.290 pH Units (7.350-7.450) L 03/05/22 04:00 ABG pCO2 38.1 mm Hg 03/05/22 04:00 ABG pO2 145.8 mm Hg (80.0-90.0) H 03/05/22 04:00 ABG HCO3 17.9 mmol/L (20.0-26.0) L 03/05/22 04:00 ABG O2 Saturation 98.7 % (95.0-99.0) 03/05/22 04:00 ABG O2 Content 12.3 (0.0-44) 03/05/22 04:00 ABG Base Excess -8.0 mmol/L (-2.0-3.0) L 03/05/22 04:00 ABG Hemoglobin 8.8 gm/dl (12.0-16.0) L 03/05/22 04:00 ABG Carboxyhemoglobin 1.4 % (0.0-5.0) 03/05/22 04:00 ABG Methemoglobin 0.7 % (0.0-1.5) 03/05/22 04:00 Oxyhemoglobin 96.7 % (95.0-99.0) 03/05/22 04:00 FiO2 45 % 03/05/22 04:00 Sodium 139 mmol/L (137-145) 03/05/22 06:20 Potassium 4.5 mmol/L (3.6-5.0) 03/05/22 06:20 Chloride 106.7 mmol/L (98-107) 03/05/22 06:20 Carbon Dioxide 16 mmol/L (22-30) L 03/05/22 06:20 Anion Gap 21 mmol/L 03/05/22 06:20 BUN 80 mg/dL (7-17) H 03/05/22 06:20 Creatinine 5.5 mg/dL (0.6-1.2) H 03/05/22 06:20 Estimated GFR 8 ml/min 03/05/22 06:20 BUN/Creatinine Ratio 15 % 03/05/22 06:20 Glucose 71 mg/dL (65-100) 03/05/22 06:20 POC Glucose 86 mg/dL (70-105) 03/04/22 12:18 Lactic Acid 1.50 mmol/L (0.7-2.0) 03/03/22 19:44 Calcium 8.0 mg/dL (8.4-10.2) L 03/05/22 06:20 Total Bilirubin 3.60 mg/dL (0.1-1.2) H 03/03/22 19:44 AST 31 units/L (5-40) 03/03/22 19:44 ALT 12 units/L (7-56) 03/03/22 19:44 Alkaline Phosphatase 126 units/L (35-129) 03/03/22 19:44 Ammonia 73.0 umol/L (25-60) H 03/05/22 06:20 Total Creatine Kinase 31 units/L (30-135) 03/03/22 19:44 Troponin T 0.057 ng/mL (0.00-0.029) H 03/03/22 19:44 Total Protein 6.1 g/dL (6.3-8.2) L 03/03/22 19:44 Albumin 2.4 g/dL (3.9-5) L 03/03/22 19:44 Albumin/Globulin Ratio 0.6 % 03/03/22 19:44 Triglycerides 71 mg/dL (2-149) 03/03/22 19:44 Cholesterol 75 mg/dL (50-199) 03/03/22 19:44 LDL Cholesterol Direct 35 mg/dL (50-130) L 03/03/22 19:44 HDL Cholesterol 21 mg/dL (40-59) L 03/03/22 19:44 Cholesterol/HDL Ratio 3.57 % 03/03/22 19:44 Urine Color [place] (Yellow) 03/04/22 Unknown Urine Turbidity Clear (Clear) 03/04/22 Unknown Urine pH 5.0 (5.0-7.0) 03/04/22 Unknown Ur Specific [place] 1.013 (1.003-1.030) 03/04/22 Unknown Urine Protein <15 mg/dl mg/dL (Negative) 03/04/22 Unknown Urine Glucose (UA) Neg mg/dL (Negative) 03/04/22 Unknown Urine Ketones Neg mg/dL (Negative) 03/04/22 Unknown Urine Blood Neg (Negative) 03/04/22 Unknown Urine Nitrite Neg (Negative) 03/04/22 Unknown Urine Bilirubin Neg (Negative) 03/04/22 Unknown Urine Urobilinogen < 2.0 mg/dL (<2.0) 03/04/22 Unknown Ur Leukocyte Esterase Sm (Negative) 03/04/22 Unknown Urine WBC (Auto) 1.0 /HPF (0.0-6.0) 03/04/22 Unknown Urine RBC (Auto) 1.0 /HPF (0.0-6.0) 03/04/22 Unknown U Epithel Cells (Auto) < 1.0 /HPF (0-13.0) 03/04/22 Unknown Salicylates < 0.3 mg/dL (2.8-20.0) L 03/03/22 19:44 Acetaminophen 5.0 ug/mL (10.0-30.0) L 03/03/22 19:44 Plasma/Serum Alcohol < 0.01 % (0-0.07) 03/03/22 19:44 Blood Type O POSITIVE 03/03/22 20:13 Antibody Screen Negative 03/03/22 20:13 Microbiology: Microbiology 03/03/22 19:44 Peripheral/Venous Blood Culture - Preliminary NO GROWTH AFTER 24 HOURS 03/03/22 19:44 Peripheral/Venous Blood Culture - Preliminary NO GROWTH AFTER 24 HOURS Senior/IV: Voiding Method Indwelling Catheter Active Medications - Current Medications Current Medications: Generic Name Dose Route Start Last Admin Trade Name Freq PRN Reason Stop Dose Admin Acetaminophen 650 mg 03/04/22 00:02 Acetaminophen 650 Mg Rect Supp CA Q6H PRN Pain MILD(1-3)/Fever >100.5/JOSEPH Fentanyl 50 mcg 03/04/22 10:47 Fentanyl 100 Mcg/2 Ml Inj IV Q10MIN PRN ANALGESIA Hydrophilic Ointment 1 applic 03/04/22 10:47 Lip Therapy Vaseline TP Q2HR PRN Dry Lips Pantoprazole Sodium 80 mg/ 100 mls @ 10 mls/hr 03/04/22 11:00 03/05/22 02:06 Sodium Chloride IV 8 mg/hr DIRECT FABIEN 10 mls/hr Administration 8 MG/HR Ceftriaxone Sodium 1 gm in 50 mls @ 100 mls/hr 03/04/22 18:00 03/04/22 17:05 Rocephin/Ns 1 Gm/50 Ml IV 100 mls/hr Q24H FABIEN Administration Fentanyl Citrate 2,000 mcg in 100 mls @ 3.655 mls/hr 03/04/22 11:00 03/05/22 07:16 Fentanyl Drip Premix IV 1 mcg/kg/hr TITR FABIEN 3.655 mls/hr Administration Protocol 1 MCG/KG/HR Propofol 1,000 mg in 100 mls @ 2.193 mls/hr 03/04/22 11:00 03/05/22 11:15 Diprivan 10 Mg/Ml IV 10 mcg/kg/min TITR FABIEN 4.386 mls/hr Titration Protocol 5 MCG/KG/MIN Octreotide Acetate 500 mcg/ 101 mls @ 5.05 mls/hr 03/04/22 11:00 03/04/22 17:05 Sodium Chloride IV 25 mcg/hr TITR FABIEN 5.05 mls/hr Administration Protocol 25 MCG/HR Dextrose/Sodium Chloride 1,000 mls @ 75 mls/hr 03/05/22 09:00 03/05/22 09:00 D5/0.45ns IV 75 mls/hr DIRECT FABIEN Administration Lactulose 200 gm 03/04/22 14:00 03/05/22 09:45 Lactulose Enema 1000 Ml CA 200 gm TID FABIEN Administration Multi-Ingred Cream/Lotion/Oil/Oint 1 applic 03/04/22 10:47 Mineral Oil/Petrolatum, White Ophth Oint 3.5 Gm OU Q4HR PRN Dry Eye(s) Ondansetron HCl 4 mg 03/04/22 00:02 Ondansetron 4 Mg/2 Ml Inj IV Q8H PRN Nausea And Vomiting Senna/Docusate Sodium 1 tab 03/04/22 22:00 03/05/22 09:14 Sennosides/Docusate Sodium 8.6/50 Mg Tab FEEDTUBE Not Given BID FABIEN Sodium Bicarbonate 1,300 mg 03/05/22 14:00 Sodium Bicarbonate 650 Mg Tab PO TID FABIEN Sodium Chloride 10 ml 03/04/22 10:00 03/05/22 09:14 Sodium Chloride 0.9% 10 Ml Flush Syringe IV 10 ml BID FABIEN Administration Sodium Chloride 10 ml 03/04/22 00:02 Sodium Chloride 0.9% 10 Ml Flush Syringe IV PRN PRN LINE FLUSH Nutrition/Malnutrition Assess - Dietary Evaluation Nutrition/Malnutrition Findings: Nutrition Notes Start: 03/04/22 10:49 Freq: Status: Active Protocol: Document 03/04/22 10:49 EVELINE (Rec: 03/04/22 10:56 [id number] Nutrition Notes Need for Assessment generated from: MD Order,supervisor tumblers,MST Initial or Follow up Assessment Other Pertinent Diagnosis AMS, GIB, Cirrhosis, Portal HTN, Ascites Current Diet NPO Labs/Tests Ammonia 141 Pertinent Medications Octreotide gtt, Protonix gtt Height 5 ft 4 in Weight 73.1 kg [place] Body Weight (kg) 54.54 BMI 27.6 Weight change and time frame Current wt may be sec to ascites Weight Status Overweight Subjective/Other Information RD consulted to evaluate nutritional intake; pt currently NPO. Pt screened for malnutrition and skin risks (no Tres score available). PMHx includes alcoholic liver disease and CKD. Burn Absent Trauma Absent #1 Nutrition Diagnosis Altered GI function Etiology GIB/liver disease As Evidenced by Signs and Symptoms pt NPO Is patient on ventilator? No Is Patient Ambulatory and/or Out of Bed No REE-([facility] Jeor-confined to bed) [phone] Calculation Used for Recommendations [facility] Additional Notes Pro needs 0.6-0.8g/k-58g/ day Fluid needs per MD Nutrition Intervention Change Diet Order: Advance diet when medically feasible Goal #1 Diet advancement to meet nutrient needs Goal #2 Improved GI function Anticipated Discharge Needs: Unable to identify at this time Follow-Up By: 03/06/22 Additional Comments F/U: diet advancement, mental status
--- NOTE | 2022-03-05 11:48 | Gastroenterology Progress Note ---
Assessment and Plan # GI bleed - likely upper GI bleed with variceal bleed vs PUD. - CT showing cirrhosis with portal hypertension and ascites. - BP improved with blood transfusion - Hgb at 5.8, coagulopathy INR 1.8, low platelets on arrival. - received 3rd unit of PRBC. - received vitamin K. - H/H stable. - s/p EGD on 03/04/2022 with distal esophageal ulcer, duodenal ulcer, portal hypertensive gastropathy, No active bleeding. - no signs of active bleeding at this time. - of note, was able to get information from patient's daughter. She was admitted in 01/2022 at [facility] for GI bleed and ROSEMARY on CKD. was started on HD. s/p EGD with portal hypertensive gastropathy. Rec - cont with protonix and octreotide drip - ppx antibiotics - keep NPO - recommend paracentesis for ascites. pending. - monitor H/H and INR serially and transfuse with Hgb goal >7 and INR <1.5 - Subjective Date of service: 03/05/22 Principal diagnosis: Upper GI bleed Interval history: Remains intubated. No bleeding per rectum. HD stable. Objective - Constitutional Vitals: Temp Pulse Resp BP Pulse Ox 98.5 F 109 H 19 104/55 99 03/05/22 07:13 03/05/22 09:00 03/05/22 09:00 03/05/22 09:00 03/05/22 07:45 General appearance: other (intubated) - EENT Eyes: scleral icterus - Respiratory Respiratory effort: normal, other (intubated) - Cardiovascular Rhythm: regular Heart Sounds: Present: S1 & S2 - Gastrointestinal General gastrointestinal: Present: soft, distended - Neurologic Neurological: other (sedated) - Labs CBC & Chem 7: 03/05/22 06:20 03/05/22 06:20 Labs: Laboratory Results - last 24 hr 03/04/22 03/04/22 03/04/22 11:03 11:03 11:03 WBC 10.0 RBC 3.00 L Hgb 9.4 L D Hct 28.3 L D MCV 94 MCH 31 MCHC 33 RDW 23.5 H Plt Count 72 L Lymph % (Auto) [place] % (Auto) Eos % (Auto) Baso % (Auto) Lymph # (Auto) [place] # (Auto) Eos # (Auto) Baso # (Auto) Seg Neutrophils % Seg Neutrophils # PT 20.7 H INR 1.57 H ABG pH ABG pCO2 ABG pO2 ABG HCO3 ABG O2 Saturation ABG O2 Content ABG Base Excess ABG Hemoglobin ABG Carboxyhemoglobin ABG Methemoglobin Oxyhemoglobin FiO2 Sodium 140 Potassium 4.5 Chloride 105.3 Carbon Dioxide 18 L Anion Gap 21 BUN 79 H Creatinine 5.0 H Estimated GFR 9 BUN/Creatinine Ratio 16 Glucose 81 POC Glucose Calcium 8.3 L Ammonia Urine Color Urine Turbidity Urine pH Ur Specific [place] Urine Protein Urine Glucose (UA) Urine Ketones Urine Blood Urine Nitrite Urine Bilirubin Urine Urobilinogen Ur Leukocyte Esterase Urine WBC (Auto) Urine RBC (Auto) U Epithel Cells (Auto) 03/04/22 03/04/22 03/04/22 12:00 12:18 15:30 WBC RBC Hgb 9.3 L Hct 28.4 L MCV MCH MCHC RDW Plt Count Lymph % (Auto) [place] % (Auto) Eos % (Auto) Baso % (Auto) Lymph # (Auto) [place] # (Auto) Eos # (Auto) Baso # (Auto) Seg Neutrophils % Seg Neutrophils # PT INR ABG pH 7.301 L ABG pCO2 36.4 ABG pO2 273.8 H ABG HCO3 17.6 L ABG O2 Saturation 99.4 H ABG O2 Content 13.3 ABG Base Excess -8.1 L ABG Hemoglobin 9.2 L ABG Carboxyhemoglobin 1.6 ABG Methemoglobin 0.5 Oxyhemoglobin 97.4 FiO2 100 Sodium Potassium Chloride Carbon Dioxide Anion Gap BUN Creatinine Estimated GFR BUN/Creatinine Ratio Glucose POC Glucose 86 Calcium Ammonia Urine Color Urine Turbidity Urine pH Ur Specific [place] Urine Protein Urine Glucose (UA) Urine Ketones Urine Blood Urine Nitrite Urine Bilirubin Urine Urobilinogen Ur Leukocyte Esterase Urine WBC (Auto) Urine RBC (Auto) U Epithel Cells (Auto) 03/04/22 03/05/22 03/05/22 Unknown 00:27 04:00 WBC RBC Hgb 8.9 L Hct 27.2 L MCV MCH MCHC RDW Plt Count 93 L Lymph % (Auto) [place] % (Auto) Eos % (Auto) Baso % (Auto) Lymph # (Auto) [place] # (Auto) Eos # (Auto) Baso # (Auto) Seg Neutrophils % Seg Neutrophils # PT INR ABG pH 7.290 L ABG pCO2 38.1 ABG pO2 145.8 H ABG HCO3 17.9 L ABG O2 Saturation 98.7 ABG O2 Content 12.3 ABG Base Excess -8.0 L ABG Hemoglobin 8.8 L ABG Carboxyhemoglobin 1.4 ABG Methemoglobin 0.7 Oxyhemoglobin 96.7 FiO2 45 Sodium Potassium Chloride Carbon Dioxide Anion Gap BUN Creatinine Estimated GFR BUN/Creatinine Ratio Glucose POC Glucose Calcium Ammonia Urine Color [place] Urine Turbidity Clear Urine pH 5.0 Ur Specific [place] 1.013 Urine Protein <15 mg/dl Urine Glucose (UA) Neg Urine Ketones Neg Urine Blood Neg Urine Nitrite Neg Urine Bilirubin Neg Urine Urobilinogen < 2.0 Ur Leukocyte Esterase Sm Urine WBC (Auto) 1.0 Urine RBC (Auto) 1.0 U Epithel Cells (Auto) < 1.0 03/05/22 03/05/22 03/05/22 06:20 06:20 06:20 WBC 10.9 RBC 2.80 L Hgb 8.5 L Hct 26.7 L MCV 95 MCH 31 MCHC 32 RDW 24.1 H Plt Count 94 L Lymph % (Auto) 14.1 [place] % (Auto) 4.4 Eos % (Auto) 2.1 Baso % (Auto) 0.7 Lymph # (Auto) 1.5 [place] # (Auto) 0.5 Eos # (Auto) 0.2 Baso # (Auto) 0.1 Seg Neutrophils % 78.7 H Seg Neutrophils # 8.6 H PT 20.6 H INR 1.56 H ABG pH ABG pCO2 ABG pO2 ABG HCO3 ABG O2 Saturation ABG O2 Content ABG Base Excess ABG Hemoglobin ABG Carboxyhemoglobin ABG Methemoglobin Oxyhemoglobin FiO2 Sodium 139 Potassium 4.5 Chloride 106.7 Carbon Dioxide 16 L Anion Gap 21 BUN 80 H Creatinine 5.5 H Estimated GFR 8 BUN/Creatinine Ratio 15 Glucose 71 POC Glucose Calcium 8.0 L Ammonia Urine Color Urine Turbidity Urine pH Ur Specific [place] Urine Protein Urine Glucose (UA) Urine Ketones Urine Blood Urine Nitrite Urine Bilirubin Urine Urobilinogen Ur Leukocyte Esterase Urine WBC (Auto) Urine RBC (Auto) U Epithel Cells (Auto) 03/05/22 06:20 WBC RBC Hgb Hct MCV MCH MCHC RDW Plt Count Lymph % (Auto) [place] % (Auto) Eos % (Auto) Baso % (Auto) Lymph # (Auto) [place] # (Auto) Eos # (Auto) Baso # (Auto) Seg Neutrophils % Seg Neutrophils # PT INR ABG pH ABG pCO2 ABG pO2 ABG HCO3 ABG O2 Saturation ABG O2 Content ABG Base Excess ABG Hemoglobin ABG Carboxyhemoglobin ABG Methemoglobin Oxyhemoglobin FiO2 Sodium Potassium Chloride Carbon Dioxide Anion Gap BUN Creatinine Estimated GFR BUN/Creatinine Ratio Glucose POC Glucose Calcium Ammonia 73.0 H Urine Color Urine Turbidity Urine pH Ur Specific [place] Urine Protein Urine Glucose (UA) Urine Ketones Urine Blood Urine Nitrite Urine Bilirubin Urine Urobilinogen Ur Leukocyte Esterase Urine WBC (Auto) Urine RBC (Auto) U Epithel Cells (Auto) - Imaging CT scan: report reviewed
[2022-03-05] MEDS: OCTREOTIDE 500 MCG in SODIUM CHLORIDE 0.9% 100 ML IV SCH (13:35)
--- NOTE | 2022-03-05 15:41 | Progress Note ---
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 Hyperammonemia Acute on Chronic Kidney Disease on HD Daily assessment for readiness to wean today Plan for therapeutic paracentesis and supportive HD tomorrow Will need to address nutritional support- currently strict NPO -Titrate supplemental oxygen to keep SpO2 89-92% -CXR, ABG as clinically indicated -Fentanyl infusion for pain management. Titrate to CPOT 0-2 -Monitoring renal function, hemodynamics and electrolyte profile -Replete electrolytes as clinically indicated -Empiric antibiotics therapy for SBP- on Ceftriaxone. She has a documented Penicillin allergy is a rash -Accuchecks with glycemic control. target blood glucose 140-180 mg/dL. Avoid hypoglycemia -VTE prophylaxis- contraindicated at this time- patient has UGIB, s/p PRBC and she has thrombocytopenia -SCDs to lower extremities -Supportive transfusions to keep HgB >7g/dL -Avoid nephrotoxins and renally dose all medications -Renal consult for supportive HD as clinically indicated -Stress ulcer prophylaxis- on therapeutic Pantoprazole infusion -Continue with Octreotide -Mobility, frequent turning, off loading per facility protocol to prevent pressure ulcers -Maintain sleep wake cycle, avoid benzodiazepines. -Lactulose Per rectum, strict NPO for now -Substance abuse counselling once she is liberated from [facility] and is able to participate in the discussions CONDITION:CRITICAL PROGNOSIS: GUARDED CODE STATUS; FULL CODE The high probability of a clinically significant, sudden or life threatening deterioration of the respiratory, GI system required my full and direct attention, intervention and personal management. The aggregate critical care time was [35] minutes. This time is in addition to time spent performing reported procedures but includes the following: [x] Data Review and interpretation [x] Patient assessment and monitoring of vital signs [x] Documentation [x] Medication orders and management Subjective Date of service: 03/05/22 Principal diagnosis: Upper GI bleed Interval history: This is a 51-year-old female with known past medical history of alcoholic liver disease, HFpEF, recent PEA arrest at [facility] (01/2022), and CKD s/p HD from recent hospitalization, admitted for Acute blood loss anemia 2/2 Upper GIB s/p EGD and remains intubated on [facility]. Seen and examined. Vitals, labs, medications, chart reviewed. Discussed with respiratory care and nursing staff. No acute adverse overnight events. No active bleeding noted. Hemoglobin stable Remains intubated, on Propofol/Fentnayl MVS: PEEP +6/FIO2 40% Objective - Exam Narrative Exam: Vitals reviewed General appearance: Present: no acute distress, other (Intubated and Sedated) Chronically ill looking, temporal wasting Orally intubated, no patient-ventilator dys-synchrony Right chest wall perm-cath - EENT Eyes: Present: PERRL - Respiratory Respiratory effort: normal Respiratory: bilateral: diminished, no rhonchi - Cardiovascular Rhythm: regular Heart Sounds: Present: S1 & S2 - Extremities Extremities: no ischemia, pulses intact, pulses symmetrical Extremity abnormal: edema - Peripheral Assessment Bilateral Lower Extremity Edema Type: Pitting Edema Degree: 2+ Capillary Refill: < 3 seconds Skin Temperature: Warm Generalized Edema Type: Non-pitting Capillary Refill: < 3 seconds Skin Temperature: Warm Peripheral Pulses: within normal limits - Abdominal General gastrointestinal: soft, distended, normal bowel sounds Ascites - Integumentary Integumentary: Present: warm, dry, pale - Psychiatric Psychiatric: other (Intubated and sedated) - Neurologic Neurologic: opens eyes on verbal command, obeys simple commands Vital Signs - 12hr 03/05/22 03/05/22 03/05/22 03:51 04:00 04:01 Temperature 97.7 F Pulse Rate 116 H 117 H 118 H Pulse Rate [ 117 H From Monitor] Respiratory 19 12 16 Rate Blood Pressure 110/57 113/59 O2 Sat by Pulse 100 100 100 Oximetry 03/05/22 03/05/22 03/05/22 04:05 04:11 04:21 Temperature Pulse Rate 117 H 116 H 117 H Pulse Rate [ From Monitor] Respiratory 15 12 Rate Blood Pressure 113/59 113/59 113/59 O2 Sat by Pulse 100 100 100 Oximetry 03/05/22 03/05/22 03/05/22 04:31 04:41 04:51 Temperature Pulse Rate 117 H 116 H 114 H Pulse Rate [ From Monitor] Respiratory 15 16 15 Rate Blood Pressure 113/59 113/59 113/59 O2 Sat by Pulse 100 100 100 Oximetry 03/05/22 03/05/22 03/05/22 05:00 05:11 05:21 Temperature Pulse Rate 116 H 115 H 114 H Pulse Rate [ From Monitor] Respiratory 19 20 20 Rate Blood Pressure 112/65 112/65 112/65 O2 Sat by Pulse 100 100 Oximetry 03/05/22 03/05/22 03/05/22 05:31 05:41 05:51 Temperature Pulse Rate 115 H 116 H 115 H Pulse Rate [ From Monitor] Respiratory 20 19 20 Rate Blood Pressure 112/65 112/65 112/65 O2 Sat by Pulse 100 100 100 Oximetry 03/05/22 03/05/22 03/05/22 06:00 07:00 07:13 Temperature 98.5 F Pulse Rate 116 H 113 H Pulse Rate [ From Monitor] Respiratory 20 20 Rate Blood Pressure 106/58 105/60 O2 Sat by Pulse 100 100 Oximetry 03/05/22 03/05/22 03/05/22 07:45 08:00 09:00 Temperature 98.5 F Pulse Rate 108 H 110 H 109 H Pulse Rate [ 110 H From Monitor] Respiratory 20 19 Rate Blood Pressure 106/58 106/58 104/55 O2 Sat by Pulse 99 100 Oximetry 03/05/22 03/05/22 03/05/22 10:00 11:00 11:41 Temperature Pulse Rate 112 H 105 H Pulse Rate [ 97 H From Monitor] Respiratory 15 20 20 Rate Blood Pressure 104/61 94/46 O2 Sat by Pulse 100 100 Oximetry 03/05/22 03/05/22 03/05/22 12:00 12:24 12:30 Temperature 98.1 F Pulse Rate 106 H 105 H Pulse Rate [ From Monitor] Respiratory 20 20 Rate Blood Pressure 108/60 102/56 O2 Sat by Pulse 100 100 Oximetry 03/05/22 03/05/22 03/05/22 13:00 13:01 13:30 Temperature Pulse Rate 105 H 105 H 106 H Pulse Rate [ From Monitor] Respiratory 20 20 Rate Blood Pressure 102/56 102/56 97/54 O2 Sat by Pulse 100 100 100 Oximetry 03/05/22 03/05/22 03/05/22 14:00 14:30 15:00 Temperature Pulse Rate 105 H 108 H 105 H Pulse Rate [ From Monitor] Respiratory 20 20 20 Rate Blood Pressure 105/55 109/61 102/57 O2 Sat by Pulse 100 100 100 Oximetry CBC and BMP: 03/06/22 03:37 03/06/22 03:37 ABG, PT/INR, D-dimer: ABG ABG pH 7.290 pH Units (7.350-7.450) L 03/05/22 04:00 ABG pCO2 38.1 mm Hg 03/05/22 04:00 ABG pO2 145.8 mm Hg (80.0-90.0) H 03/05/22 04:00 ABG O2 Saturation 98.7 % (95.0-99.0) 03/05/22 04:00 PT/INR, D-dimer PT 20.6 Sec. (12.2-14.9) H 03/05/22 06:20 INR 1.56 (0.87-1.13) H 03/05/22 06:20 Abnormal lab findings: Abnormal Labs 03/03/22 03/03/22 03/03/22 19:44 19:44 19:44 RBC Hgb Hct MCV MCH RDW Plt Count Seg Neutrophils % Seg Neutrophils # PT 23.2 H INR 1.80 H ABG pH ABG pO2 ABG HCO3 ABG O2 Saturation ABG Base Excess ABG Hemoglobin Oxyhemoglobin Carbon Dioxide 20 L BUN 86 H Creatinine 5.5 H Calcium 8.0 L Total Bilirubin 3.60 H Ammonia 141.0 H Troponin T 0.057 H Total Protein 6.1 L Albumin 2.4 L LDL Cholesterol Direct 35 L HDL Cholesterol 21 L Salicylates Acetaminophen 03/03/22 03/03/22 03/03/22 19:44 19:44 21:30 RBC Hgb Hct MCV MCH RDW Plt Count Seg Neutrophils % Seg Neutrophils # PT INR ABG pH ABG pO2 ABG HCO3 ABG O2 Saturation ABG Base Excess -3.7 L ABG Hemoglobin 5.0 L Oxyhemoglobin 94.8 L Carbon Dioxide BUN Creatinine Calcium Total Bilirubin Ammonia Troponin T Total Protein Albumin LDL Cholesterol Direct HDL Cholesterol Salicylates < 0.3 L Acetaminophen 5.0 L 03/03/22 03/04/22 03/04/22 21:35 11:03 11:03 RBC 1.69 L 3.00 L Hgb 5.8 L* 9.4 L D Hct 17.2 L* 28.3 L D MCV 102 H MCH 34 H RDW 19.8 H 23.5 H Plt Count 75 L 72 L Seg Neutrophils % 71.2 H Seg Neutrophils # PT 20.7 H INR 1.57 H ABG pH ABG pO2 ABG HCO3 ABG O2 Saturation ABG Base Excess ABG Hemoglobin Oxyhemoglobin Carbon Dioxide BUN Creatinine Calcium Total Bilirubin Ammonia Troponin T Total Protein Albumin LDL Cholesterol Direct HDL Cholesterol Salicylates Acetaminophen 03/04/22 03/04/22 03/04/22 11:03 12:00 15:30 RBC Hgb 9.3 L Hct 28.4 L MCV MCH RDW Plt Count Seg Neutrophils % Seg Neutrophils # PT INR ABG pH 7.301 L ABG pO2 273.8 H ABG HCO3 17.6 L ABG O2 Saturation 99.4 H ABG Base Excess -8.1 L ABG Hemoglobin 9.2 L Oxyhemoglobin Carbon Dioxide 18 L BUN 79 H Creatinine 5.0 H Calcium 8.3 L Total Bilirubin Ammonia Troponin T Total Protein Albumin LDL Cholesterol Direct HDL Cholesterol Salicylates Acetaminophen 03/05/22 03/05/22 03/05/22 00:27 04:00 06:20 RBC 2.80 L Hgb 8.9 L 8.5 L Hct 27.2 L 26.7 L MCV MCH RDW 24.1 H Plt Count 93 L 94 L Seg Neutrophils % 78.7 H Seg Neutrophils # 8.6 H PT INR ABG pH 7.290 L ABG pO2 145.8 H ABG HCO3 17.9 L ABG O2 Saturation ABG Base Excess -8.0 L ABG Hemoglobin 8.8 L Oxyhemoglobin Carbon Dioxide BUN Creatinine Calcium Total Bilirubin Ammonia Troponin T Total Protein Albumin LDL Cholesterol Direct HDL Cholesterol Salicylates Acetaminophen 03/05/22 03/05/22 03/05/22 06:20 06:20 06:20 RBC Hgb Hct MCV MCH RDW Plt Count Seg Neutrophils % Seg Neutrophils # PT 20.6 H INR 1.56 H ABG pH ABG pO2 ABG HCO3 ABG O2 Saturation ABG Base Excess ABG Hemoglobin Oxyhemoglobin Carbon Dioxide 16 L BUN 80 H Creatinine 5.5 H Calcium 8.0 L Total Bilirubin Ammonia 73.0 H Troponin T Total Protein Albumin LDL Cholesterol Direct HDL Cholesterol Salicylates Acetaminophen
[2022-03-05 17:29] LABS: Hematocrit 25.6 % (30.3-42.9); Hemoglobin 8.5 gm/dl (10.1-14.3)
[2022-03-05] MEDS ORDERED: SODIUM CHLORIDE 0.9% 100 ML IV PRN (17:49)
--- NOTE | 2022-03-05 17:49 | Progress Note ---
Assessment and Plan Acute kidney injury vs ROSEMARY on CKD. Started on HD at [facility] in 01/2022. Permcath access available. Acute blood loss anemia Peptic/duodenal ulcer Acidosis Hypotension, improved post transfusion Acute encephalopathy Acute respiratory failure, s/p intubation Records obtained from recent hospital admission at [facility] for initiation of dialysis in January/2022 for acute kidney injury. Patient currently has a PermCath in place. Plan for HD tomorrow Transfuse for hemoglobin less than 7 Keep MAP more than 65 Strict I/O Renally dose medications Avoid nephrotoxins Renal diet Subjective Date of service: 03/05/22 Principal diagnosis: Upper GI bleed Interval history: Seen in ICU. Remains intubated. Objective - Exam Narrative Exam: General: Sedated. Intubated. HEENT: Oral mucosa moist Neck: Supple, no JVD Chest: Intubated. Mechanical breath sounds. Heart: RRR, S1 and S2, no pericardial rub Abdomen: Soft, nontender, no renal bruit Extremity: No peripheral cyanosis, edema Neurological: Alert, awake, no asterixis Dermatology: No skin rash Psych: Unable to assess Musculoskeletal: No joint effusion - Vital Signs Vital signs: Vital Signs - 12hr 03/05/22 03/05/22 03/05/22 05:51 06:00 07:00 Temperature Pulse Rate 115 H 116 H 113 H Pulse Rate [ From Monitor] Respiratory 20 20 20 Rate Blood Pressure 112/65 106/58 105/60 O2 Sat by Pulse 100 100 100 Oximetry 03/05/22 03/05/22 03/05/22 07:13 07:45 08:00 Temperature 98.5 F 98.5 F Pulse Rate 108 H 110 H Pulse Rate [ 110 H From Monitor] Respiratory 20 Rate Blood Pressure 106/58 106/58 O2 Sat by Pulse 99 100 Oximetry 03/05/22 03/05/22 03/05/22 09:00 10:00 11:00 Temperature Pulse Rate 109 H 112 H 105 H Pulse Rate [ From Monitor] Respiratory 19 15 20 Rate Blood Pressure 104/55 104/61 94/46 O2 Sat by Pulse 100 Oximetry 03/05/22 03/05/22 03/05/22 11:41 12:00 12:24 Temperature 98.1 F Pulse Rate 106 H Pulse Rate [ 97 H From Monitor] Respiratory 20 20 Rate Blood Pressure 108/60 O2 Sat by Pulse 100 100 Oximetry 03/05/22 03/05/22 03/05/22 12:30 13:00 13:01 Temperature Pulse Rate 105 H 105 H 105 H Pulse Rate [ From Monitor] Respiratory 20 20 Rate Blood Pressure 102/56 102/56 102/56 O2 Sat by Pulse 100 100 100 Oximetry 03/05/22 03/05/22 03/05/22 13:30 14:00 14:30 Temperature Pulse Rate 106 H 105 H 108 H Pulse Rate [ From Monitor] Respiratory 20 20 20 Rate Blood Pressure 97/54 105/55 109/61 O2 Sat by Pulse 100 100 100 Oximetry 03/05/22 03/05/22 03/05/22 15:00 15:30 15:50 Temperature Pulse Rate 105 H 101 H 105 H Pulse Rate [ From Monitor] Respiratory 20 19 Rate Blood Pressure 102/57 104/54 102/57 O2 Sat by Pulse 100 100 100 Oximetry 03/05/22 03/05/22 03/05/22 16:00 16:30 17:00 Temperature 97.9 F Pulse Rate 105 H 100 H 96 H Pulse Rate [ 95 H From Monitor] Respiratory 14 20 19 Rate Blood Pressure 115/64 108/54 97/54 O2 Sat by Pulse 100 100 97 Oximetry 03/05/22 17:30 Temperature Pulse Rate 95 H Pulse Rate [ From Monitor] Respiratory 20 Rate Blood Pressure 99/59 O2 Sat by Pulse 100 Oximetry - Lab 03/05/22 16:52 03/05/22 06:20 Most recent lab results ABG pH 7.290 pH Units (7.350-7.450) L 03/05/22 04:00 ABG pCO2 38.1 mm Hg 03/05/22 04:00 ABG pO2 145.8 mm Hg (80.0-90.0) H 03/05/22 04:00 ABG HCO3 17.9 mmol/L (20.0-26.0) L 03/05/22 04:00 ABG O2 Saturation 98.7 % (95.0-99.0) 03/05/22 04:00 Calcium 8.0 mg/dL (8.4-10.2) L 03/05/22 06:20 Medications & Allergies - Medications Allergies/Adverse Reactions: Allergies Penicillins Allergy (Verified 03/03/22 17:17) Rash Home Medications: Home Medications Medication Instructions Recorded Confirmed Last Taken Type FLUoxetine [PROzac] 20 mg PO QDAY #30 capsule 04/27/16 12/30/16 Unknown Rx Folic Acid 1 tab PO QDAY #30 tab 04/27/16 12/30/16 Unknown Rx Multivitamin Tab [Multiple Vitamin 1 each PO ONCE #30 tablet 04/27/16 12/30/16 Unknown Rx TAB (Theragran)] Thiamine [Vitamin B-1] 100 mg PO QDAY #30 tablet 04/27/16 12/30/16 Unknown Rx traZODone [Desyrel] 50 mg PO QHS #30 tab 04/27/16 12/30/16 Unknown Rx chlordiazePOXIDE [Librium] 25 mg PO Q6H #10 capsule 08/11/20 Unknown Rx Active Medications: Generic Name Dose Route Start Last Admin Trade Name Freq PRN Reason Stop Dose Admin Acetaminophen 650 mg 03/04/22 00:02 Acetaminophen 650 Mg Rect Supp NV Q6H PRN Pain MILD(1-3)/Fever >100.5/JOSEPH Fentanyl 50 mcg 03/04/22 10:47 Fentanyl 100 Mcg/2 Ml Inj IV Q10MIN PRN ANALGESIA Hydrophilic Ointment 1 applic 03/04/22 10:47 Lip Therapy Vaseline TP Q2HR PRN Dry Lips Pantoprazole Sodium 80 mg/ 100 mls @ 10 mls/hr 03/04/22 11:00 03/05/22 13:35 Sodium Chloride IV 8 mg/hr DIRECT FABIEN 10 mls/hr Administration 8 MG/HR Ceftriaxone Sodium 1 gm in 50 mls @ 100 mls/hr 03/04/22 18:00 03/04/22 17:05 Rocephin/Ns 1 Gm/50 Ml IV 100 mls/hr Q24H FABIEN Administration Fentanyl Citrate 2,000 mcg in 100 mls @ 3.655 mls/hr 03/04/22 11:00 03/05/22 07:16 Fentanyl Drip Premix IV 1 mcg/kg/hr TITR FABIEN 3.655 mls/hr Administration Protocol 1 MCG/KG/HR Propofol 1,000 mg in 100 mls @ 2.193 mls/hr 03/04/22 11:00 03/05/22 14:45 Diprivan 10 Mg/Ml IV 0 mcg/kg/min TITR FABIEN 0 mls/hr Titration Protocol 5 MCG/KG/MIN Octreotide Acetate 500 mcg/ 101 mls @ 5.05 mls/hr 03/04/22 11:00 03/05/22 13:35 Sodium Chloride IV 25 mcg/hr TITR FABIEN 5.05 mls/hr Administration Protocol 25 MCG/HR Dextrose/Sodium Chloride 1,000 mls @ 75 mls/hr 03/05/22 09:00 03/05/22 09:00 D5/0.45ns IV 75 mls/hr DIRECT FABIEN Administration Lactulose 200 gm 03/04/22 14:00 03/05/22 14:54 Lactulose Enema 1000 Ml NV 200 gm TID FABIEN Administration Multi-Ingred Cream/Lotion/Oil/Oint 1 applic 03/04/22 10:47 Mineral Oil/Petrolatum, White Ophth Oint 3.5 Gm OU Q4HR PRN Dry Eye(s) Ondansetron HCl 4 mg 03/04/22 00:02 Ondansetron 4 Mg/2 Ml Inj IV Q8H PRN Nausea And Vomiting Senna/Docusate Sodium 1 tab 03/04/22 22:00 03/05/22 09:14 Sennosides/Docusate Sodium 8.6/50 Mg Tab FEEDTUBE Not Given BID FABIEN Sodium Bicarbonate 1,300 mg 03/05/22 14:00 03/05/22 14:55 Sodium Bicarbonate 650 Mg Tab PO Not Given TID FABIEN Sodium Chloride 10 ml 03/04/22 10:00 03/05/22 09:14 Sodium Chloride 0.9% 10 Ml Flush Syringe IV 10 ml BID FABIEN Administration Sodium Chloride 10 ml 03/04/22 00:02 Sodium Chloride 0.9% 10 Ml Flush Syringe IV PRN PRN LINE FLUSH
[2022-03-05] MEDS: cefTRIAXone/NS 1 GM/50 ML 1 GM/50 ML BAG IV SCH (17:51)
[2022-03-05] MEDS ORDERED: SODIUM BICARB 8.4% 50 MEQ/50 ML SYRINGE IV ONE (19:00)
[2022-03-06] MEDS ORDERED: SODIUM CHLORIDE 0.9% 250ML 250 ML IV ONE (00:13)
[2022-03-06] MEDS: fentaNYL DRIP Premix 2,000 MCG/100 ML BAG IV SCH ×2 (02:07→23:33)
--- NOTE | 2022-03-06 03:35 | XRay Report ---
CHEST 1 VIEW 03/06/2022 2:27 AM INDICATION / CLINICAL INFORMATION: follow up respiratory failure. COMPARISON: Previous day. FINDINGS: SUPPORT DEVICES: Unchanged. HEART / MEDIASTINUM: No significant change. LUNGS / PLEURA: Improving lung volumes. Bilateral opacity has improved as well. Mild decreasing basil ar aeration. No pneumothorax. ADDITIONAL FINDINGS: No significant additional findings. IMPRESSION: 1. No acute findings. Signer Name: Barrera Crawford MD Signed: 03/06/2022 3:31 AM Workstation Name: [id number]
[2022-03-06 04:22] LABS: Hematocrit 23.1 % (30.3-42.9); Hemoglobin 7.6 gm/dl (10.1-14.3); Mean Corpuscular HGB Conc 33 % (30-34); Mean Corpuscular Volume 95 fl (79-97); Red Blood Count 2.42 M/mm3 (3.65-5.03)
[2022-03-06 04:26] LABS: Platelet Count 64 K/mm3 (140-440); Red Cell Distribution Width 24.2 % (13.2-15.2)
[2022-03-06 04:44] LABS: Calcium 7.5 mg/dL (8.4-10.2)
[2022-03-06 05:04] LABS: ABG Base Excess -7.5 mmol/L (-2.0-3.0); ABG HCO3 18.8 mmol/L (20.0-26.0); ABG Methemoglobin 0.6 % (0.0-1.5); ABG Oxygen Saturation 97.3 % (95.0-99.0); ABG PCO2 41.6 mm Hg; ABG PH 7.272 pH Units (7.350-7.450); ABG PO2 103.3 mm Hg (80.0-90.0)
[2022-03-06] MEDS: OCTREOTIDE 500 MCG in SODIUM CHLORIDE 0.9% 100 ML IV SCH ×3 (07:31→18:10)
[2022-03-06] MEDS: PANTOPRAZOLE 80 MG in SODIUM CHLORIDE 0.9% 100 ML IV SCH ×2 (07:31→18:07)
[2022-03-06] MEDS: SENNOSIDES/DOCUSATE SODIUM 8.6/50 MG TAB FEEDTUBE SCH ×2 (07:54→09:07)
[2022-03-06] MEDS: SODIUM BICARBONATE 650 MG TAB PO SCH ×3 (07:55→21:14)
--- NOTE | 2022-03-06 09:02 | Progress Note ---
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 Hyperammonemia Acute on Chronic Kidney Disease on HD Plan for therapeutic paracentesis and supportive HD tomorrow Will need to address nutritional support- currently strict NPO -Titrate supplemental oxygen to keep SpO2 89-92% -CXR, ABG as clinically indicated -Fentanyl infusion for pain management. Titrate to CPOT 0-2 -Monitoring renal function, hemodynamics and electrolyte profile -Replete electrolytes as clinically indicated -Empiric antibiotics therapy for SBP- on Ceftriaxone. She has a documented Penicillin allergy is a rash -Accuchecks with glycemic control. target blood glucose 140-180 mg/dL. Avoid hypoglycemia -VTE prophylaxis- contraindicated at this time- patient has UGIB, s/p PRBC and she has thrombocytopenia -SCDs to lower extremities -Supportive transfusions to keep HgB >7g/dL -Avoid nephrotoxins and renally dose all medications -Renal consult for supportive HD as clinically indicated -Stress ulcer prophylaxis- on therapeutic Pantoprazole infusion -Continue with Octreotide -Mobility, frequent turning, off loading per facility protocol to prevent pressure ulcers -Maintain sleep wake cycle, avoid benzodiazepines. -Lactulose Per rectum, strict NPO for now -Substance abuse counselling once she is liberated from [facility] and is able to participate in the discussions CONDITION:CRITICAL PROGNOSIS: GUARDED CODE STATUS; FULL CODE The high probability of a clinically significant, sudden or life threatening deterioration of the respiratory, GI system required my full and direct attention, intervention and personal management. The aggregate critical care time was [35] minutes. This time is in addition to time spent performing reported procedures but includes the following: [x] Data Review and interpretation [x] Patient assessment and monitoring of vital signs [x] Documentation [x] Medication orders and management Subjective Date of service: 03/06/22 Principal diagnosis: Upper GI bleed Interval history: This is a 51-year-old female with known past medical history of alcoholic liver disease, HFpEF, recent PEA arrest at [facility] (01/2022), and CKD s/p HD from recent hospitalization, admitted for Acute blood loss anemia 2/2 Upper GIB s/p EGD and remains intubated on [facility]. Seen and examined. Vitals, labs, medications, chart reviewed. Discussed with respiratory care and nursing staff. No acute adverse overnight events. No active bleeding noted. Hemoglobin stable Remains intubated, on Propofol/Fentnayl MVS: PEEP +6/FIO2 40% Objective - Exam Narrative Exam: Vitals reviewed General appearance: Present: no acute distress, other (Intubated and Sedated) Chronically ill looking, temporal wasting Orally intubated, no patient-ventilator dys-synchrony Right chest wall perm-cath - EENT Eyes: Present: PERRL - Respiratory Respiratory effort: normal Respiratory: bilateral: diminished, no rhonchi - Cardiovascular Rhythm: regular Heart Sounds: Present: S1 & S2 - Extremities Extremities: no ischemia, pulses intact, pulses symmetrical Extremity abnormal: edema - Peripheral Assessment Bilateral Lower Extremity Edema Type: Pitting Edema Degree: 2+ Capillary Refill: < 3 seconds Skin Temperature: Warm Generalized Edema Type: Non-pitting Capillary Refill: < 3 seconds Skin Temperature: Warm Peripheral Pulses: within normal limits - Abdominal General gastrointestinal: soft, distended, normal bowel sounds Ascites - Integumentary Integumentary: Present: warm, dry, pale - Psychiatric Psychiatric: other (Intubated and sedated) - Neurologic Neurologic: opens eyes on verbal command, obeys simple commands Vital Signs - 12hr 03/05/22 03/05/22 03/05/22 21:30 22:00 22:30 Temperature Pulse Rate 88 90 90 Pulse Rate [ From Monitor] Respiratory 18 19 16 Rate Blood Pressure 93/52 96/54 98/51 O2 Sat by Pulse 100 100 100 Oximetry 03/05/22 03/05/22 03/05/22 23:00 23:03 23:30 Temperature Pulse Rate 88 88 90 Pulse Rate [ From Monitor] Respiratory 20 20 20 Rate Blood Pressure 94/53 94/53 90/52 O2 Sat by Pulse 100 100 100 Oximetry 03/05/22 03/05/22 03/06/22 23:55 23:56 00:00 Temperature 98.2 F Pulse Rate 80 87 Pulse Rate [ 88 From Monitor] Respiratory 20 17 Rate Blood Pressure 89/47 O2 Sat by Pulse 100 100 Oximetry 03/06/22 03/06/22 03/06/22 00:19 00:30 01:00 Temperature Pulse Rate 85 85 87 Pulse Rate [ From Monitor] Respiratory 20 16 Rate Blood Pressure 89/47 92/46 90/47 O2 Sat by Pulse 100 100 100 Oximetry 03/06/22 03/06/22 03/06/22 01:30 02:01 02:30 Temperature Pulse Rate 84 87 81 Pulse Rate [ From Monitor] Respiratory 21 19 14 Rate Blood Pressure 88/46 95/56 101/51 O2 Sat by Pulse 100 100 Oximetry 03/06/22 03/06/22 03/06/22 03:00 03:30 04:00 Temperature 97.5 F L Pulse Rate 82 84 86 Pulse Rate [ 85 From Monitor] Respiratory 20 16 18 Rate Blood Pressure 105/56 84/58 93/45 O2 Sat by Pulse 100 97 99 Oximetry 03/06/22 03/06/22 03/06/22 04:30 04:45 05:01 Temperature Pulse Rate 91 H 93 H 93 H Pulse Rate [ From Monitor] Respiratory 10 L 15 Rate Blood Pressure 92/50 92/50 112/55 O2 Sat by Pulse 100 100 100 Oximetry 03/06/22 03/06/22 03/06/22 05:30 06:00 06:30 Temperature Pulse Rate 90 87 80 Pulse Rate [ From Monitor] Respiratory 20 19 11 L Rate Blood Pressure 110/60 107/55 97/49 O2 Sat by Pulse 100 100 100 Oximetry 03/06/22 03/06/22 03/06/22 07:00 07:17 07:30 Temperature 98.5 F Pulse Rate 79 77 Pulse Rate [ From Monitor] Respiratory 19 19 Rate Blood Pressure 97/48 98/50 O2 Sat by Pulse 100 100 Oximetry 03/06/22 03/06/22 08:00 08:05 Temperature Pulse Rate 85 84 Pulse Rate [ 85 From Monitor] Respiratory 19 Rate Blood Pressure 109/60 109/60 O2 Sat by Pulse 100 100 Oximetry CBC and BMP: 03/07/22 05:48 03/07/22 05:48 ABG, PT/INR, D-dimer: ABG ABG pH 7.272 pH Units (7.350-7.450) L 03/06/22 04:55 ABG pCO2 41.6 mm Hg 03/06/22 04:55 ABG pO2 103.3 mm Hg (80.0-90.0) H 03/06/22 04:55 ABG O2 Saturation 97.3 % (95.0-99.0) 03/06/22 04:55 PT/INR, D-dimer PT 20.6 Sec. (12.2-14.9) H 03/05/22 06:20 INR 1.56 (0.87-1.13) H 03/05/22 06:20 Abnormal lab findings: Abnormal Labs 03/03/22 03/03/22 03/03/22 19:44 19:44 19:44 RBC Hgb Hct MCV MCH RDW Plt Count Seg Neutrophils % Seg Neutrophils # PT 23.2 H INR 1.80 H ABG pH ABG pO2 ABG HCO3 ABG O2 Saturation ABG Base Excess ABG Hemoglobin Oxyhemoglobin Chloride Carbon Dioxide 20 L BUN 86 H Creatinine 5.5 H Glucose Calcium 8.0 L Total Bilirubin 3.60 H Ammonia 141.0 H Troponin T 0.057 H Total Protein 6.1 L Albumin 2.4 L LDL Cholesterol Direct 35 L HDL Cholesterol 21 L Salicylates Acetaminophen 03/03/22 03/03/22 03/03/22 19:44 19:44 21:30 RBC Hgb Hct MCV MCH RDW Plt Count Seg Neutrophils % Seg Neutrophils # PT INR ABG pH ABG pO2 ABG HCO3 ABG O2 Saturation ABG Base Excess -3.7 L ABG Hemoglobin 5.0 L Oxyhemoglobin 94.8 L Chloride Carbon Dioxide BUN Creatinine Glucose Calcium Total Bilirubin Ammonia Troponin T Total Protein Albumin LDL Cholesterol Direct HDL Cholesterol Salicylates < 0.3 L Acetaminophen 5.0 L 03/03/22 03/04/22 03/04/22 21:35 11:03 11:03 RBC 1.69 L 3.00 L Hgb 5.8 L* 9.4 L D Hct 17.2 L* 28.3 L D MCV 102 H MCH 34 H RDW 19.8 H 23.5 H Plt Count 75 L 72 L Seg Neutrophils % 71.2 H Seg Neutrophils # PT 20.7 H INR 1.57 H ABG pH ABG pO2 ABG HCO3 ABG O2 Saturation ABG Base Excess ABG Hemoglobin Oxyhemoglobin Chloride Carbon Dioxide BUN Creatinine Glucose Calcium Total Bilirubin Ammonia Troponin T Total Protein Albumin LDL Cholesterol Direct HDL Cholesterol Salicylates Acetaminophen 03/04/22 03/04/22 03/04/22 11:03 12:00 15:30 RBC Hgb 9.3 L Hct 28.4 L MCV MCH RDW Plt Count Seg Neutrophils % Seg Neutrophils # PT INR ABG pH 7.301 L ABG pO2 273.8 H ABG HCO3 17.6 L ABG O2 Saturation 99.4 H ABG Base Excess -8.1 L ABG Hemoglobin 9.2 L Oxyhemoglobin Chloride Carbon Dioxide 18 L BUN 79 H Creatinine 5.0 H Glucose Calcium 8.3 L Total Bilirubin Ammonia Troponin T Total Protein Albumin LDL Cholesterol Direct HDL Cholesterol Salicylates Acetaminophen 03/05/22 03/05/22 03/05/22 00:27 04:00 06:20 RBC 2.80 L Hgb 8.9 L 8.5 L Hct 27.2 L 26.7 L MCV MCH RDW 24.1 H Plt Count 93 L 94 L Seg Neutrophils % 78.7 H Seg Neutrophils # 8.6 H PT INR ABG pH 7.290 L ABG pO2 145.8 H ABG HCO3 17.9 L ABG O2 Saturation ABG Base Excess -8.0 L ABG Hemoglobin 8.8 L Oxyhemoglobin Chloride Carbon Dioxide BUN Creatinine Glucose Calcium Total Bilirubin Ammonia Troponin T Total Protein Albumin LDL Cholesterol Direct HDL Cholesterol Salicylates Acetaminophen 03/05/22 03/05/22 03/05/22 06:20 06:20 06:20 RBC Hgb Hct MCV MCH RDW Plt Count Seg Neutrophils % Seg Neutrophils # PT 20.6 H INR 1.56 H ABG pH ABG pO2 ABG HCO3 ABG O2 Saturation ABG Base Excess ABG Hemoglobin Oxyhemoglobin Chloride Carbon Dioxide 16 L BUN 80 H Creatinine 5.5 H Glucose Calcium 8.0 L Total Bilirubin Ammonia 73.0 H Troponin T Total Protein Albumin LDL Cholesterol Direct HDL Cholesterol Salicylates Acetaminophen 03/05/22 03/06/22 03/06/22 16:52 03:37 03:37 RBC 2.42 L Hgb 8.5 L 7.6 L Hct 25.6 L 23.1 L MCV MCH RDW 24.2 H Plt Count 74 L 64 L Seg Neutrophils % Seg Neutrophils # PT INR ABG pH ABG pO2 ABG HCO3 ABG O2 Saturation ABG Base Excess ABG Hemoglobin Oxyhemoglobin Chloride 108.9 H Carbon Dioxide 18 L BUN 81 H Creatinine 5.9 H Glucose 131 H Calcium 7.5 L Total Bilirubin Ammonia Troponin T Total Protein Albumin LDL Cholesterol Direct HDL Cholesterol Salicylates Acetaminophen 03/06/22 04:55 RBC Hgb Hct MCV MCH RDW Plt Count Seg Neutrophils % Seg Neutrophils # PT INR ABG pH 7.272 L ABG pO2 103.3 H ABG HCO3 18.8 L ABG O2 Saturation ABG Base Excess -7.5 L ABG Hemoglobin 7.6 L Oxyhemoglobin Chloride Carbon Dioxide BUN Creatinine Glucose Calcium Total Bilirubin Ammonia Troponin T Total Protein Albumin LDL Cholesterol Direct HDL Cholesterol Salicylates Acetaminophen
--- NOTE | 2022-03-06 09:10 | Progress Note ---
Assessment and Plan Assessment and plan: NEURO-SEDATION; ETOH USE/ABUSE RAAS neg 2; no commands trending ammonia fentanyl for pain propofol now off CIWA/etoh abuse CV- NAP SR no pressors RESP- ACUTE HYPOXIC RESP FAILURE intubated see iview once para is done we will wean to extubate RT will wean and tolerated for SBT in AM and hopeful extubation GI etoh cirrhosisi with ascities para today- small volume labs sent PPI per GI--- consider change to BID dosing octreatide per GI trending LFT/ammonia and INR lactulose to daily dosing NPO per GI will defer feeding plan to GI abd ct noted EGD no bleeding -ARF HD today nephrology following bicarb TID olliguria will dc bruno bladder can QS AM labs ordered Heme- anemia hgb goal > 7 VTE SCD ID leukocytosis trend temp and WBC trend WBC curve follow culture data ceftriaxone ro SBT Endo- stress hyperglycemia blood glucose control PRN Disposition Plan: continue ICU care Total Time Spent with Patient (Minutes): 60 History Interval history: no acute events over night Hospitalist Physical - Constitutional Vitals: Temp Pulse Resp BP Pulse Ox 98.5 F 83 20 104/54 100 03/06/22 07:17 03/06/22 09:00 03/06/22 09:00 03/06/22 09:00 03/06/22 09:00 General appearance: Present: no acute distress, other (Intubated and Sedated) - EENT Eyes: Present: PERRL ENT: clear oral mucosa - Neck Neck: Present: supple, normal ROM - Respiratory Respiratory effort: normal - Cardiovascular Rhythm: regular Heart Sounds: Present: S1 & S2 Peripheral Pulses: within normal limits - Abdominal General gastrointestinal: soft - Integumentary Integumentary: Present: clear, warm, dry - Allied Health Allied health notes reviewed: nursing HEART Score - HEART Score Troponin: Troponin T 0.057 ng/mL (0.00-0.029) H 03/03/22 19:44 Results - Labs CBC & Chem 7: 03/06/22 03:37 03/06/22 03:37 Labs: Laboratory Last Values WBC 6.9 K/mm3 (4.5-11.0) 03/06/22 03:37 RBC 2.42 M/mm3 (3.65-5.03) L 03/06/22 03:37 Hgb 7.6 gm/dl (10.1-14.3) L 03/06/22 03:37 Hct 23.1 % (30.3-42.9) L 03/06/22 03:37 MCV 95 fl (79-97) 03/06/22 03:37 MCH 32 pg (28-32) 03/06/22 03:37 MCHC 33 % (30-34) 03/06/22 03:37 RDW 24.2 % (13.2-15.2) H 03/06/22 03:37 Plt Count 64 K/mm3 (140-440) L 03/06/22 03:37 Lymph % (Auto) 14.1 % (13.4-35.0) 03/05/22 06:20 [place] % (Auto) 4.4 % (0.0-7.3) 03/05/22 06:20 Eos % (Auto) 2.1 % (0.0-4.3) 03/05/22 06:20 Baso % (Auto) 0.7 % (0.0-1.8) 03/05/22 06:20 Lymph # (Auto) 1.5 K/mm3 (1.2-5.4) 03/05/22 06:20 [place] # (Auto) 0.5 K/mm3 (0.0-0.8) 03/05/22 06:20 Eos # (Auto) 0.2 K/mm3 (0.0-0.4) 03/05/22 06:20 Baso # (Auto) 0.1 K/mm3 (0.0-0.1) 03/05/22 06:20 Seg Neutrophils % 78.7 % (40.0-70.0) H 03/05/22 06:20 Seg Neutrophils # 8.6 K/mm3 (1.8-7.7) H 03/05/22 06:20 PT 20.6 Sec. (12.2-14.9) H 03/05/22 06:20 INR 1.56 (0.87-1.13) H 03/05/22 06:20 ABG pH 7.272 pH Units (7.350-7.450) L 03/06/22 04:55 ABG pCO2 41.6 mm Hg 03/06/22 04:55 ABG pO2 103.3 mm Hg (80.0-90.0) H 03/06/22 04:55 ABG HCO3 18.8 mmol/L (20.0-26.0) L 03/06/22 04:55 ABG O2 Saturation 97.3 % (95.0-99.0) 03/06/22 04:55 ABG O2 Content 10.3 (0.0-44) 03/06/22 04:55 ABG Base Excess -7.5 mmol/L (-2.0-3.0) L 03/06/22 04:55 ABG Hemoglobin 7.6 gm/dl (12.0-16.0) L 03/06/22 04:55 ABG Carboxyhemoglobin 1.7 % (0.0-5.0) 03/06/22 04:55 ABG Methemoglobin 0.6 % (0.0-1.5) 03/06/22 04:55 Oxyhemoglobin 95.0 % (95.0-99.0) 03/06/22 04:55 FiO2 30 % 03/06/22 04:55 Sodium 141 mmol/L (137-145) 03/06/22 03:37 Potassium 3.9 mmol/L (3.6-5.0) 03/06/22 03:37 Chloride 108.9 mmol/L (98-107) H 03/06/22 03:37 Carbon Dioxide 18 mmol/L (22-30) L 03/06/22 03:37 Anion Gap 18 mmol/L 03/06/22 03:37 BUN 81 mg/dL (7-17) H 03/06/22 03:37 Creatinine 5.9 mg/dL (0.6-1.2) H 03/06/22 03:37 Estimated GFR 8 ml/min 03/06/22 03:37 BUN/Creatinine Ratio 14 % 03/06/22 03:37 Glucose 131 mg/dL (65-100) H 03/06/22 03:37 POC Glucose 105 mg/dL (70-105) 03/05/22 16:46 Lactic Acid 1.50 mmol/L (0.7-2.0) 03/03/22 19:44 Calcium 7.5 mg/dL (8.4-10.2) L 03/06/22 03:37 Total Bilirubin 3.60 mg/dL (0.1-1.2) H 03/03/22 19:44 AST 31 units/L (5-40) 03/03/22 19:44 ALT 12 units/L (7-56) 03/03/22 19:44 Alkaline Phosphatase 126 units/L (35-129) 03/03/22 19:44 Ammonia 45.0 umol/L (25-60) 03/06/22 03:37 Total Creatine Kinase 31 units/L (30-135) 03/03/22 19:44 Troponin T 0.057 ng/mL (0.00-0.029) H 03/03/22 19:44 Total Protein 6.1 g/dL (6.3-8.2) L 03/03/22 19:44 Albumin 2.4 g/dL (3.9-5) L 03/03/22 19:44 Albumin/Globulin Ratio 0.6 % 03/03/22 19:44 Triglycerides 71 mg/dL (2-149) 03/03/22 19:44 Cholesterol 75 mg/dL (50-199) 03/03/22 19:44 LDL Cholesterol Direct 35 mg/dL (50-130) L 03/03/22 19:44 HDL Cholesterol 21 mg/dL (40-59) L 03/03/22 19:44 Cholesterol/HDL Ratio 3.57 % 03/03/22 19:44 Urine Color Corinna (Yellow) 03/04/22 Unknown Urine Turbidity Clear (Clear) 03/04/22 Unknown Urine pH 5.0 (5.0-7.0) 03/04/22 Unknown Ur Specific [place] 1.013 (1.003-1.030) 03/04/22 Unknown Urine Protein <15 mg/dl mg/dL (Negative) 03/04/22 Unknown Urine Glucose (UA) Neg mg/dL (Negative) 03/04/22 Unknown Urine Ketones Neg mg/dL (Negative) 03/04/22 Unknown Urine Blood Neg (Negative) 03/04/22 Unknown Urine Nitrite Neg (Negative) 03/04/22 Unknown Urine Bilirubin Neg (Negative) 03/04/22 Unknown Urine Urobilinogen < 2.0 mg/dL (<2.0) 03/04/22 Unknown Ur Leukocyte Esterase Sm (Negative) 03/04/22 Unknown Urine WBC (Auto) 1.0 /HPF (0.0-6.0) 03/04/22 Unknown Urine RBC (Auto) 1.0 /HPF (0.0-6.0) 03/04/22 Unknown U Epithel Cells (Auto) < 1.0 /HPF (0-13.0) 03/04/22 Unknown Salicylates < 0.3 mg/dL (2.8-20.0) L 03/03/22 19:44 Acetaminophen 5.0 ug/mL (10.0-30.0) L 03/03/22 19:44 Plasma/Serum Alcohol < 0.01 % (0-0.07) 03/03/22 19:44 Blood Type O POSITIVE 03/03/22 20:13 Antibody Screen Negative 03/03/22 20:13 Microbiology: Microbiology 03/03/22 19:44 Peripheral/Venous Blood Culture - Preliminary NO GROWTH AFTER 48 HOURS 03/03/22 19:44 Peripheral/Venous Blood Culture - Preliminary NO GROWTH AFTER 48 HOURS Bruno/IV: Voiding Method Indwelling Catheter Active Medications - Current Medications Current Medications: Generic Name Dose Route Start Last Admin Trade Name Freq PRN Reason Stop Dose Admin Acetaminophen 650 mg 03/04/22 00:02 Acetaminophen 650 Mg Rect Supp MI Q6H PRN Pain MILD(1-3)/Fever >100.5/JOSEPH Fentanyl 50 mcg 03/04/22 10:47 Fentanyl 100 Mcg/2 Ml Inj IV Q10MIN PRN ANALGESIA Hydrophilic Ointment 1 applic 03/04/22 10:47 Lip Therapy Vaseline TP Q2HR PRN Dry Lips Pantoprazole Sodium 80 mg/ 100 mls @ 10 mls/hr 03/04/22 11:00 03/06/22 07:31 Sodium Chloride IV 8 mg/hr DIRECT FABIEN 10 mls/hr Administration 8 MG/HR Ceftriaxone Sodium 1 gm in 50 mls @ 100 mls/hr 03/04/22 18:00 03/05/22 17:51 Rocephin/Ns 1 Gm/50 Ml IV 03/10/22 18:29 100 mls/hr Q24H FABIEN Administration Fentanyl Citrate 2,000 mcg in 100 mls @ 3.655 mls/hr 03/04/22 11:00 03/06/22 07:31 Fentanyl Drip Premix IV 1 mcg/kg/hr TITR FABIEN 3.655 mls/hr Titration Protocol 1 MCG/KG/HR Propofol 1,000 mg in 100 mls @ 2.193 mls/hr 03/04/22 11:00 03/05/22 23:59 Diprivan 10 Mg/Ml IV Infused TITR FABIEN Titration Protocol 5 MCG/KG/MIN Octreotide Acetate 500 mcg/ 101 mls @ 5.05 mls/hr 03/04/22 11:00 03/06/22 07:31 Sodium Chloride IV 25 mcg/hr TITR FABIEN 5.05 mls/hr Administration Protocol 25 MCG/HR Dextrose/Sodium Chloride 1,000 mls @ 75 mls/hr 03/05/22 09:00 03/05/22 22:33 D5/0.45ns IV 75 mls/hr DIRECT FABIEN Administration Sodium Chloride 100 mls @ 999 mls/hr 03/05/22 17:49 Nacl 0.9% IV PETRA PRN Hypotension Lactulose 200 gm 03/04/22 14:00 03/05/22 22:08 Lactulose Enema 1000 Ml MI 200 gm TID FABIEN Administration Multi-Ingred Cream/Lotion/Oil/Oint 1 applic 03/04/22 10:47 Mineral Oil/Petrolatum, White Ophth Oint 3.5 Gm OU Q4HR PRN Dry Eye(s) Ondansetron HCl 4 mg 03/04/22 00:02 Ondansetron 4 Mg/2 Ml Inj IV Q8H PRN Nausea And Vomiting Senna/Docusate Sodium 1 tab 03/04/22 22:00 03/06/22 09:07 Sennosides/Docusate Sodium 8.6/50 Mg Tab FEEDTUBE Not Given BID FABIEN Sodium Bicarbonate 1,300 mg 03/05/22 14:00 03/06/22 07:55 Sodium Bicarbonate 650 Mg Tab PO Not Given TID FABIEN Sodium Chloride 10 ml 03/04/22 10:00 03/06/22 07:54 Sodium Chloride 0.9% 10 Ml Flush Syringe IV Not Given BID FABIEN Sodium Chloride 10 ml 03/04/22 00:02 Sodium Chloride 0.9% 10 Ml Flush Syringe IV PRN PRN LINE FLUSH Nutrition/Malnutrition Assess - Dietary Evaluation Nutrition/Malnutrition Findings: Nutrition Notes Start: 03/04/22 10:49 Freq: Status: Active Protocol: Document 03/04/22 10:49 EVELINE (Rec: 03/04/22 10:56 EVELINE [id number]) Nutrition Notes Need for Assessment generated from: MD Order,mailroom messenger,MST Initial or Follow up Assessment Other Pertinent Diagnosis AMS, GIB, Cirrhosis, Portal HTN, Ascites Current Diet NPO Labs/Tests Ammonia 141 Pertinent Medications Octreotide gtt, Protonix gtt Height 5 ft 4 in Weight 73.1 kg Ten Sleep Body Weight (kg) 54.54 BMI 27.6 Weight change and time frame Current wt may be sec to ascites Weight Status Overweight Subjective/Other Information RD consulted to evaluate nutritional intake; pt currently NPO. Pt screened for malnutrition and skin risks (no Tres score available). PMHx includes alcoholic liver disease and CKD. Burn Absent Trauma Absent #1 Nutrition Diagnosis Altered GI function Etiology GIB/liver disease As Evidenced by Signs and Symptoms pt NPO Is patient on ventilator? No Is Patient Ambulatory and/or Out of Bed No REE-(Allen-St. or-confined to bed) 1601.220 Calculation Used for Recommendations Allen-St Jeor Additional Notes Pro needs 0.6-0.8g/k-58g/ day Fluid needs per MD Nutrition Intervention Change Diet Order: Advance diet when medically feasible Goal #1 Diet advancement to meet nutrient needs Goal #2 Improved GI function Anticipated Discharge Needs: Unable to identify at this time Follow-Up By: 03/06/22 Additional Comments F/U: diet advancement, mental status - Malnutrition Assessment Minimum of two criteria: Yes - Attestation Statement I have reviewed and agreed w/ Malnutrition eval & tx plan: Yes
--- NOTE | 2022-03-06 10:47 | Progress Note ---
Assessment and Plan Impression * Acute kidney injury vs ROSEMARY on CKD --HD initiated at [facility] in 01/2022 * Acute hypoxic respiratory failure, s/p intubation * Cirrhosis * Anemia secondary to acute blood loss/GI bleed --s/p EGD on 03/04/2022 with distal esophageal ulcer, duodenal ulcer, portal hypertensive gastropathy. No active bleeding. * Esophageal/duodenal ulcer * Metabolic acidosis * Hypotension, secondary to ABL * Thrombocytopenia * Acute encephalopathy Plan: * Hemodialysis today - UF as tolerated * Continue MWF schedule for now * Transfuse for hemoglobin less than 7 * Maintain MAP>65 - pressors prn * Strict I/O * Dose medications for renal function * Avoid nephrotoxins * Diet per GI/primary team Subjective Date of service: 03/06/22 Principal diagnosis: Upper GI bleed Interval history: Patient is intubated Objective - Vital Signs Vital signs: Vital Signs - 12hr 03/05/22 03/05/22 03/05/22 23:00 23:03 23:30 Temperature Pulse Rate 88 88 90 Pulse Rate [ From Monitor] Respiratory 20 20 20 Rate Blood Pressure 94/53 94/53 90/52 O2 Sat by Pulse 100 100 100 Oximetry O2 Sat by Pulse Oximetry [ Bilateral] 03/05/22 03/05/22 03/06/22 23:55 23:56 00:00 Temperature 98.2 F Pulse Rate 80 87 Pulse Rate [ 88 From Monitor] Respiratory 20 17 Rate Blood Pressure 89/47 O2 Sat by Pulse 100 100 Oximetry O2 Sat by Pulse Oximetry [ Bilateral] 03/06/22 03/06/22 03/06/22 00:19 00:30 01:00 Temperature Pulse Rate 85 85 87 Pulse Rate [ From Monitor] Respiratory 20 16 Rate Blood Pressure 89/47 92/46 90/47 O2 Sat by Pulse 100 100 100 Oximetry O2 Sat by Pulse Oximetry [ Bilateral] 03/06/22 03/06/22 03/06/22 01:30 02:01 02:30 Temperature Pulse Rate 84 87 81 Pulse Rate [ From Monitor] Respiratory 21 19 14 Rate Blood Pressure 88/46 95/56 101/51 O2 Sat by Pulse 100 100 Oximetry O2 Sat by Pulse Oximetry [ Bilateral] 03/06/22 03/06/22 03/06/22 03:00 03:30 04:00 Temperature 97.5 F L Pulse Rate 82 84 86 Pulse Rate [ 85 From Monitor] Respiratory 20 16 18 Rate Blood Pressure 105/56 84/58 93/45 O2 Sat by Pulse 100 97 99 Oximetry O2 Sat by Pulse Oximetry [ Bilateral] 03/06/22 03/06/22 03/06/22 04:30 04:45 05:01 Temperature Pulse Rate 91 H 93 H 93 H Pulse Rate [ From Monitor] Respiratory 10 L 15 Rate Blood Pressure 92/50 92/50 112/55 O2 Sat by Pulse 100 100 100 Oximetry O2 Sat by Pulse Oximetry [ Bilateral] 03/06/22 03/06/22 03/06/22 05:30 06:00 06:30 Temperature Pulse Rate 90 87 80 Pulse Rate [ From Monitor] Respiratory 20 19 11 L Rate Blood Pressure 110/60 107/55 97/49 O2 Sat by Pulse 100 100 100 Oximetry O2 Sat by Pulse Oximetry [ Bilateral] 03/06/22 03/06/22 03/06/22 07:00 07:17 07:30 Temperature 98.5 F Pulse Rate 79 77 Pulse Rate [ From Monitor] Respiratory 19 19 Rate Blood Pressure 97/48 98/50 O2 Sat by Pulse 100 100 Oximetry O2 Sat by Pulse Oximetry [ Bilateral] 03/06/22 03/06/22 03/06/22 08:00 08:05 08:30 Temperature Pulse Rate 85 84 84 Pulse Rate [ 85 From Monitor] Respiratory 19 20 Rate Blood Pressure 109/60 109/60 106/52 O2 Sat by Pulse 100 100 100 Oximetry O2 Sat by Pulse Oximetry [ Bilateral] 03/06/22 03/06/22 03/06/22 08:45 09:00 09:15 Temperature 98.0 F Pulse Rate 83 83 83 Pulse Rate [ From Monitor] Respiratory 19 20 Rate Blood Pressure 101/56 101/56 105/54 O2 Sat by Pulse 100 Oximetry O2 Sat by Pulse 100 Oximetry [ Bilateral] 03/06/22 03/06/22 03/06/22 09:30 09:45 10:00 Temperature Pulse Rate 91 H 92 H 96 H Pulse Rate [ From Monitor] Respiratory Rate Blood Pressure 97/43 96/52 91/52 O2 Sat by Pulse Oximetry O2 Sat by Pulse Oximetry [ Bilateral] - General Appearance General appearance: well-developed, other (appears older than stated age) EENT: other (ETT in place) Respiratory: Present: Other (coarse breath sounds) Cardiology: regular, S1S2 Gastrointestinal: normal, no tenderness, no distended Integumentary: warm and dry Musculoskeletal: other (2+ edema) - Lab 03/06/22 03:37 03/06/22 03:37 Most recent lab results ABG pH 7.272 pH Units (7.350-7.450) L 03/06/22 04:55 ABG pCO2 41.6 mm Hg 03/06/22 04:55 ABG pO2 103.3 mm Hg (80.0-90.0) H 03/06/22 04:55 ABG HCO3 18.8 mmol/L (20.0-26.0) L 03/06/22 04:55 ABG O2 Saturation 97.3 % (95.0-99.0) 03/06/22 04:55 Calcium 7.5 mg/dL (8.4-10.2) L 03/06/22 03:37 Medications & Allergies - Medications Allergies/Adverse Reactions: Allergies Penicillins Allergy (Verified 03/03/22 17:17) Rash Home Medications: Home Medications Medication Instructions Recorded Confirmed Last Taken Type FLUoxetine [PROzac] 20 mg PO QDAY #30 capsule 04/27/16 12/30/16 Unknown Rx Folic Acid 1 tab PO QDAY #30 tab 04/27/16 12/30/16 Unknown Rx Multivitamin Tab [Multiple Vitamin 1 each PO ONCE #30 tablet 04/27/16 12/30/16 Unknown Rx TAB (Theragran)] Thiamine [Vitamin B-1] 100 mg PO QDAY #30 tablet 04/27/16 12/30/16 Unknown Rx traZODone [Desyrel] 50 mg PO QHS #30 tab 04/27/16 12/30/16 Unknown Rx chlordiazePOXIDE [Librium] 25 mg PO Q6H #10 capsule 08/11/20 Unknown Rx Active Medications: Generic Name Dose Route Start Last Admin Trade Name Freq PRN Reason Stop Dose Admin Acetaminophen 650 mg 03/04/22 00:02 Acetaminophen 650 Mg Rect Supp UT Q6H PRN Pain MILD(1-3)/Fever >100.5/JOSEPH Fentanyl 50 mcg 03/04/22 10:47 Fentanyl 100 Mcg/2 Ml Inj IV Q10MIN PRN ANALGESIA Hydrophilic Ointment 1 applic 03/04/22 10:47 Lip Therapy Vaseline TP Q2HR PRN Dry Lips Pantoprazole Sodium 80 mg/ 100 mls @ 10 mls/hr 03/04/22 11:00 03/06/22 07:31 Sodium Chloride IV 8 mg/hr DIRECT FABIEN 10 mls/hr Administration 8 MG/HR Ceftriaxone Sodium 1 gm in 50 mls @ 100 mls/hr 03/04/22 18:00 03/05/22 17:51 Rocephin/Ns 1 Gm/50 Ml IV 03/10/22 18:29 100 mls/hr Q24H FABIEN Administration Fentanyl Citrate 2,000 mcg in 100 mls @ 3.655 mls/hr 03/04/22 11:00 03/06/22 07:31 Fentanyl Drip Premix IV 1 mcg/kg/hr TITR FABIEN 3.655 mls/hr Titration Protocol 1 MCG/KG/HR Propofol 1,000 mg in 100 mls @ 2.193 mls/hr 03/04/22 11:00 03/05/22 23:59 Diprivan 10 Mg/Ml IV Infused TITR FABIEN Titration Protocol 5 MCG/KG/MIN Octreotide Acetate 500 mcg/ 101 mls @ 5.05 mls/hr 03/04/22 11:00 03/06/22 07:31 Sodium Chloride IV 25 mcg/hr TITR FABIEN 5.05 mls/hr Administration Protocol 25 MCG/HR Dextrose/Sodium Chloride 1,000 mls @ 75 mls/hr 03/05/22 09:00 03/05/22 22:33 D5/0.45ns IV 75 mls/hr DIRECT FABIEN Administration Sodium Chloride 100 mls @ 999 mls/hr 03/05/22 17:49 Nacl 0.9% IV PETRA PRN Hypotension Lactulose 200 gm 03/06/22 10:00 Lactulose Enema 1000 Ml UT DAILY FABIEN Multi-Ingred Cream/Lotion/Oil/Oint 1 applic 03/04/22 10:47 Mineral Oil/Petrolatum, White Ophth Oint 3.5 Gm OU Q4HR PRN Dry Eye(s) Ondansetron HCl 4 mg 03/04/22 00:02 Ondansetron 4 Mg/2 Ml Inj IV Q8H PRN Nausea And Vomiting Senna/Docusate Sodium 1 tab 03/04/22 22:00 03/06/22 09:07 Sennosides/Docusate Sodium 8.6/50 Mg Tab FEEDTUBE Not Given BID FABIEN Sodium Bicarbonate 1,300 mg 03/05/22 14:00 03/06/22 07:55 Sodium Bicarbonate 650 Mg Tab PO Not Given TID FABIEN Sodium Chloride 10 ml 03/04/22 10:00 03/06/22 07:54 Sodium Chloride 0.9% 10 Ml Flush Syringe IV Not Given BID FABIEN Sodium Chloride 10 ml 03/04/22 00:02 Sodium Chloride 0.9% 10 Ml Flush Syringe IV PRN PRN LINE FLUSH
[2022-03-06] MEDS: LACTULOSE ENEMA 1000 ML PR SCH (12:12)
[2022-03-06] MEDS: D5W/0.45% NACL 1,000 ML IV SCH (12:13)
--- NOTE | 2022-03-06 13:33 | Gastroenterology Progress Note ---
Assessment and Plan # GI bleed - likely upper GI bleed with variceal bleed vs PUD. - CT showing cirrhosis with portal hypertension and ascites. - s/p EGD on 03/04/2022 with distal esophageal ulcer, duodenal ulcer, portal hypertensive gastropathy, No active bleeding. - no signs of active bleeding at this time. - of note, was able to get information from patient's daughter. She was admitted in 01/2022 at [facility] for GI bleed and ROSEMARY on CKD. was started on HD. s/p EGD with portal hypertensive gastropathy. - Hgb downtrended overnight. Rec - cont with protonix and octreotide drip - ppx antibiotics - can place a dobhoff for tube feeds if expected to remain intubated. - recommend paracentesis for ascites. pending. - monitor H/H and INR serially and transfuse with Hgb goal >7 and INR <1.5 - Subjective Date of service: 03/06/22 Principal diagnosis: Upper GI bleed Interval history: Remains intubated. No bleeding noted per RN. Objective - Constitutional Vitals: Temp Pulse Resp BP Pulse Ox 97.0 F L 93 H 21 94/50 100 03/06/22 12:14 03/06/22 13:00 03/06/22 13:00 03/06/22 13:00 03/06/22 13:00 General appearance: other (intubated) - Neck Neck: supple - Respiratory Respiratory effort: normal - Cardiovascular Rhythm: regular Heart Sounds: Present: S1 & S2 - Gastrointestinal General gastrointestinal: Present: soft, non-tender, non-distended - Integumentary Integumentary: Present: clear, warm - Allied health notes Allied health notes reviewed: nursing - Labs CBC & Chem 7: 03/06/22 03:37 03/06/22 03:37 Labs: Laboratory Results - last 24 hr 03/05/22 03/05/22 03/06/22 16:46 16:52 03:37 WBC 6.9 RBC 2.42 L Hgb 8.5 L 7.6 L Hct 25.6 L 23.1 L MCV 95 MCH 32 MCHC 33 RDW 24.2 H Plt Count 74 L 64 L ABG pH ABG pCO2 ABG pO2 ABG HCO3 ABG O2 Saturation ABG O2 Content ABG Base Excess ABG Hemoglobin ABG Carboxyhemoglobin ABG Methemoglobin Oxyhemoglobin FiO2 Sodium Potassium Chloride Carbon Dioxide Anion Gap BUN Creatinine Estimated GFR BUN/Creatinine Ratio Glucose POC Glucose 105 Calcium Ammonia 03/06/22 03/06/22 03/06/22 03:37 03:37 04:55 WBC RBC Hgb Hct MCV MCH MCHC RDW Plt Count ABG pH 7.272 L ABG pCO2 41.6 ABG pO2 103.3 H ABG HCO3 18.8 L ABG O2 Saturation 97.3 ABG O2 Content 10.3 ABG Base Excess -7.5 L ABG Hemoglobin 7.6 L ABG Carboxyhemoglobin 1.7 ABG Methemoglobin 0.6 Oxyhemoglobin 95.0 FiO2 30 Sodium 141 Potassium 3.9 Chloride 108.9 H Carbon Dioxide 18 L Anion Gap 18 BUN 81 H Creatinine 5.9 H Estimated GFR 8 BUN/Creatinine Ratio 14 Glucose 131 H POC Glucose Calcium 7.5 L Ammonia 45.0 03/06/22 11:50 WBC RBC Hgb Hct MCV MCH MCHC RDW Plt Count ABG pH ABG pCO2 ABG pO2 ABG HCO3 ABG O2 Saturation ABG O2 Content ABG Base Excess ABG Hemoglobin ABG Carboxyhemoglobin ABG Methemoglobin Oxyhemoglobin FiO2 Sodium Potassium Chloride Carbon Dioxide Anion Gap BUN Creatinine Estimated GFR BUN/Creatinine Ratio Glucose POC Glucose 140 H Calcium Ammonia
[2022-03-06 14:52] LABS: Hepatitis B Surface Antigen Non-Reactive (Negative); Hepatitis C Virus Antibody Non-Reactive (NonReactive)
[2022-03-06 15:10] LABS: INR 1.58 (0.87-1.13)
--- NOTE | 2022-03-06 16:21 | Procedure Note ---
Date of procedure: 03/06/22 Pre-op diagnosis: ascites Post-op diagnosis: same Procedure: US paracentesis Findings: large ascites Anesthesia: local Surgeon: ROLANDO RUSSELL Estimated blood loss: none Pathology: list (120cc) Specimen disposition: to lab Condition: stable Disposition: floor
[2022-03-06] MEDS: cefTRIAXone/NS 1 GM/50 ML 1 GM/50 ML BAG IV SCH (17:08)
--- NOTE | 2022-03-06 17:26 | Ultrasound Report ---
Renal ultrasound INDICATION: Kidney disease FINDINGS: Right kidney measures 10.5 cm in left kidney 9.3 cm. Small cyst within the left kidney cielo ures 8 x 6 x 12 mm. No mass is identified. IMPRESSION: Left renal cyst. Signer Name: Markie Zamudio MD Signed: 03/06/2022 5:22 PM Workstation Name: [id number]
[2022-03-06 20:49] LABS: Total Cells Counted 100 /mm3
[2022-03-07] MEDS ORDERED: LORazepam 2 MG/ML VIAL IV ONE (00:18)
[2022-03-07] MEDS: PANTOPRAZOLE 80 MG in SODIUM CHLORIDE 0.9% 100 ML IV SCH (04:02)
[2022-03-07 04:12] LABS: ABG Base Excess -1.1 mmol/L (-2.0-3.0); ABG HCO3 24.2 mmol/L (20.0-26.0); ABG Methemoglobin 0.5 % (0.0-1.5); ABG Oxygen Saturation 97.4 % (95.0-99.0); ABG PCO2 42.9 mm Hg; ABG PH 7.369 pH Units (7.350-7.450); ABG PO2 97.1 mm Hg (80.0-90.0)
--- NOTE | 2022-03-07 06:03 | XRay Report ---
CHEST 1 VIEW 03/07/2022 4:56 AM INDICATION / CLINICAL INFORMATION: follow up respiratory failure. COMPARISON: Previous day. FINDINGS: SUPPORT DEVICES: Dialysis catheter unchanged. HEART / MEDIASTINUM: Improving basilar aeration with decreasing opacity likely representing atelectas is. Mild increasing edema. LUNGS / PLEURA: No significant pulmonary or pleural abnormality. No pneumothorax. ADDITIONAL FINDINGS: No significant additional findings. IMPRESSION: 1. Mild increasing edema. 2. Improving basilar atelectasis. Signer Name: Barrera Crawford MD Signed: 03/07/2022 5:59 AM Workstation Name: [id number]
[2022-03-07 06:24] LABS: Albumin 2.1 g/dL (3.9-5); Calcium 7.8 mg/dL (8.4-10.2)
[2022-03-07 06:25] LABS: INR 1.78 (0.87-1.13)
--- NOTE | 2022-03-07 07:44 | Ultrasound Report ---
ULTRASOUND-GUIDED PARACENTESIS HISTORY: Ascites. PROCEDURE: The risks (including but not limited to bleeding, infection, and bowel injury) and benefi ts were explained to the patient's daughter and informed consent was obtained. A time out procedure was performed. Ultrasound was used to evaluate the abdomen and locate the largest ascites fluid pocket. Once the sk in was marked, the procedure site was prepped and draped in the usual sterile fashion and lidocaine w as used for local anesthesia. A 5 Scottish centesis catheter was placed. The patient was monitored cl osely throughout the procedure, and a total of 7300 mL of clear yellow fluid was aspirated. Samples were sent to the lab for further evaluation per the primary clinicians orders. The patient tolerated the procedure well with no complications. IMPRESSION: Successful ultrasound-guided paracentesis as described. Signer Name: Ntiesh Horvath Jr, MD Signed: 03/07/2022 7:40 AM Workstation Name: [id number]
[2022-03-07 07:47] LABS: Hematocrit 22.7 % (30.3-42.9); Hemoglobin 7.6 gm/dl (10.1-14.3); Mean Corpuscular HGB Conc 34 % (30-34); Mean Corpuscular Volume 94 fl (79-97); Red Blood Count 2.42 M/mm3 (3.65-5.03)
[2022-03-07 07:48] LABS: Platelet Count 44 K/mm3 (140-440); Red Cell Distribution Width 23.9 % (13.2-15.2)
--- NOTE | 2022-03-07 09:06 | Progress Note ---
Assessment and Plan Impression * Acute kidney injury vs ROSEMARY on CKD --HD initiated at [facility] in 01/2022 * Acute hypoxic respiratory failure, s/p intubation * Cirrhosis * Anemia secondary to acute blood loss/GI bleed --s/p EGD on 03/04/2022 with distal esophageal ulcer, duodenal ulcer, portal hypertensive gastropathy. No active bleeding. * Esophageal/duodenal ulcer * Metabolic acidosis * Hypotension, secondary to ABL * Thrombocytopenia * Acute encephalopathy Plan: * No acute need for hemodialysis today * Continue MWF schedule for now - UF as tolerated * Transfuse for hemoglobin less than 7 * Maintain MAP>65 - pressors prn * Strict I/O * Dose medications for renal function * Avoid nephrotoxins * Diet per GI/primary team Subjective Date of service: 03/07/22 Principal diagnosis: Upper GI bleed Interval history: Patient remains intubated - ACVC Rate 20 TV 400 FiO2 30 PEEP 6 Objective - Vital Signs Vital signs: Vital Signs - 12hr 03/06/22 03/06/22 03/06/22 21:30 22:00 22:30 Temperature Pulse Rate 83 80 87 Pulse Rate [ From Monitor] Respiratory 15 20 21 Rate Blood Pressure 99/52 101/46 111/58 O2 Sat by Pulse 100 100 100 Oximetry 03/06/22 03/06/22 03/06/22 23:00 23:18 23:30 Temperature Pulse Rate 93 H 87 99 H Pulse Rate [ From Monitor] Respiratory 15 11 L 24 Rate Blood Pressure 109/52 105/48 106/53 O2 Sat by Pulse 100 100 100 Oximetry 03/07/22 03/07/22 03/07/22 00:00 00:12 00:30 Temperature 97.4 F L Pulse Rate 86 83 79 Pulse Rate [ 86 From Monitor] Respiratory 15 20 Rate Blood Pressure 89/53 89/53 85/35 O2 Sat by Pulse 100 100 100 Oximetry 03/07/22 03/07/22 03/07/22 01:00 01:30 02:00 Temperature Pulse Rate 82 85 83 Pulse Rate [ From Monitor] Respiratory 20 21 20 Rate Blood Pressure 101/49 107/57 101/50 O2 Sat by Pulse 100 100 100 Oximetry 03/07/22 03/07/22 03/07/22 02:30 03:00 03:30 Temperature Pulse Rate 84 86 85 Pulse Rate [ From Monitor] Respiratory 20 24 20 Rate Blood Pressure 117/65 126/60 110/57 O2 Sat by Pulse 100 100 100 Oximetry 03/07/22 03/07/22 03/07/22 03:44 04:00 04:30 Temperature 98.4 F 98.4 F Pulse Rate 85 80 Pulse Rate [ 77 From Monitor] Respiratory 20 20 Rate Blood Pressure 120/63 106/52 O2 Sat by Pulse 100 100 Oximetry 03/07/22 03/07/22 03/07/22 05:00 05:31 06:00 Temperature Pulse Rate 78 78 87 Pulse Rate [ From Monitor] Respiratory 20 20 11 L Rate Blood Pressure 103/54 111/56 103/61 O2 Sat by Pulse 100 100 100 Oximetry 03/07/22 03/07/22 03/07/22 06:30 07:00 07:17 Temperature 97.2 F L Pulse Rate 79 79 Pulse Rate [ From Monitor] Respiratory 18 20 Rate Blood Pressure 106/57 114/52 O2 Sat by Pulse 100 100 Oximetry 03/07/22 03/07/22 03/07/22 07:30 07:49 08:00 Temperature 97.2 F L Pulse Rate 80 77 78 Pulse Rate [ 77 From Monitor] Respiratory 19 20 Rate Blood Pressure 115/61 115/61 111/52 O2 Sat by Pulse 100 100 100 Oximetry - General Appearance General appearance: well-nourished, intubated EENT: ATNC, other (ETT in place) Respiratory: Present: Decreased Breath Sounds Cardiology: regular, S1S2 Gastrointestinal: no tenderness, no distended Integumentary: warm and dry Musculoskeletal: other (2+ pitting edema) - Lab 03/07/22 05:48 03/07/22 05:48 Most recent lab results ABG pH 7.369 pH Units (7.350-7.450) 03/07/22 04:00 ABG pCO2 42.9 mm Hg 03/07/22 04:00 ABG pO2 97.1 mm Hg (80.0-90.0) H 03/07/22 04:00 ABG HCO3 24.2 mmol/L (20.0-26.0) 03/07/22 04:00 ABG O2 Saturation 97.4 % (95.0-99.0) 03/07/22 04:00 Calcium 7.8 mg/dL (8.4-10.2) L 03/07/22 05:48 Phosphorus 4.50 mg/dL (2.5-4.5) 03/07/22 05:48 Magnesium 1.30 mg/dL (1.7-2.3) L 03/07/22 05:48 Medications & Allergies - Medications Allergies/Adverse Reactions: Allergies Penicillins Allergy (Verified 03/03/22 17:17) Rash Home Medications: Home Medications Medication Instructions Recorded Confirmed Last Taken Type FLUoxetine [PROzac] 20 mg PO QDAY #30 capsule 04/27/16 12/30/16 Unknown Rx Folic Acid 1 tab PO QDAY #30 tab 04/27/16 12/30/16 Unknown Rx Multivitamin Tab [Multiple Vitamin 1 each PO ONCE #30 tablet 04/27/16 12/30/16 Unknown Rx TAB (Theragran)] Thiamine [Vitamin B-1] 100 mg PO QDAY #30 tablet 04/27/16 12/30/16 Unknown Rx traZODone [Desyrel] 50 mg PO QHS #30 tab 04/27/16 12/30/16 Unknown Rx chlordiazePOXIDE [Librium] 25 mg PO Q6H #10 capsule 08/11/20 Unknown Rx Active Medications: Generic Name Dose Route Start Last Admin Trade Name Freq PRN Reason Stop Dose Admin Fentanyl 50 mcg 03/04/22 10:47 Fentanyl 100 Mcg/2 Ml Inj IV Q10MIN PRN ANALGESIA Hydrophilic Ointment 1 applic 03/04/22 10:47 Lip Therapy Vaseline TP Q2HR PRN Dry Lips Pantoprazole Sodium 80 mg/ 100 mls @ 10 mls/hr 03/04/22 11:00 03/07/22 04:02 Sodium Chloride IV 8 mg/hr DIRECT FABIEN 10 mls/hr Administration 8 MG/HR Ceftriaxone Sodium 1 gm in 50 mls @ 100 mls/hr 03/04/22 18:00 03/06/22 17:08 Rocephin/Ns 1 Gm/50 Ml IV 03/10/22 18:29 100 mls/hr Q24H FABIEN Administration Fentanyl Citrate 2,000 mcg in 100 mls @ 3.655 mls/hr 03/04/22 11:00 03/07/22 05:25 Fentanyl Drip Premix IV 1 mcg/kg/hr TITR FABIEN 3.655 mls/hr Titration Protocol 1 MCG/KG/HR Octreotide Acetate 500 mcg/ 101 mls @ 5.05 mls/hr 03/04/22 11:00 03/06/22 18:10 Sodium Chloride IV 25 mcg/hr TITR FABIEN 5.05 mls/hr Administration Protocol 25 MCG/HR Sodium Chloride 100 mls @ 999 mls/hr 03/05/22 17:49 Nacl 0.9% IV PETRA PRN Hypotension Lactulose 200 gm 03/06/22 10:00 03/06/22 12:12 Lactulose Enema 1000 Ml UT 200 gm DAILY FABIEN Administration Ondansetron HCl 4 mg 03/04/22 00:02 Ondansetron 4 Mg/2 Ml Inj IV Q8H PRN Nausea And Vomiting Sodium Bicarbonate 1,300 mg 03/05/22 14:00 03/06/22 21:14 Sodium Bicarbonate 650 Mg Tab PO Not Given TID FABIEN Sodium Chloride 10 ml 03/04/22 10:00 03/06/22 21:14 Sodium Chloride 0.9% 10 Ml Flush Syringe IV 10 ml BID FABIEN Administration Sodium Chloride 10 ml 03/04/22 00:02 Sodium Chloride 0.9% 10 Ml Flush Syringe IV PRN PRN LINE FLUSH
[2022-03-07] MEDS: POTASSIUM CHLORIDE 10 MEQ 10 MEQ/100 ML BAG IV SCH ×2 (09:56→14:12)
[2022-03-07] MEDS: SODIUM BICARBONATE 650 MG TAB PO SCH ×3 (09:56→20:22)
[2022-03-07] MEDS: LACTULOSE ENEMA 1000 ML PR SCH (09:56)
[2022-03-07] MEDS ORDERED: MAGNESIUM SULFATE 2 GM/50 ML BAG IV SCH (10:00)
--- NOTE | 2022-03-07 11:27 | Progress Note ---
Assessment and Plan Assessment and plan: This is a 51-year-old female with known past medical history of alcoholic liver disease, HFpEF, recent PEA arrest at [facility] (01/2022), and CKD s/p HD from recent hospitalization, admitted for Acute blood loss anemia 2/2 Upper [id number] female with known history of alcoholic liver disease, chronic kidney disease brought into the emergency room today by EMS with altered mental status. She was said to have been found on the floor altered. Upon arrival in the emergency room, patient's blood pressure was about 90/40mmhg. She was tachycardic and obviously confused. Patient had some blood in her mouth and also had some melena stool. Work up in the ER,Hemoglobin was 5.8,Hematocrit was 17.2, BUN was 86 and creatinine of 5.5, ammonia 141, troponin 0.057, toxicology screen was essentially negative. Chest x-ray shows increased pulmonary vascularity with mild to moderate interstitial pulmonary edema. No pneumothorax. CT of the abdomen and pelvis shows cirrhosis with portal hypertension including splenomegaly and large volume ascites 03/04: Patient had EGD. GI consult and follow-up/procedure appreciated. Patient has a clean base white ulcer at the GE junction without any active bleeding. No obvious associated esophageal varices found. Distal esophagitis. Diffuse portal hypertensive gastropathy changes in the gastric body. A large area of ulceration in the duodenal sweep without high risk stigmata or active bleeding found. 03/05: Patient remains intubated and sedated. On protonix and octreotide gtt per GI. No report of any bleeding overnight. GI recommendations noted. Worsen renal function this morning with anuria, on continuous IVF for now. Per Nephro no indication for HD at this time. Will switch IVF to D51/2NS, close monitor of BG level. Continue to monitor H&H, coags, and liver function. US paracentesis pending. D/W CCM plan to rest patient on the vent over the weekend, will attempt SAT/SBT in the am. 03-06 paracentesis completed 03-07 failed SBT; was agitated overnight (got ativan x 2) NEURO-SEDATION; ETOH USE/ABUSE #Advance Care Planning following commands; nodding; periods agitation; periods apnea on SBT trending ammonia - down trending fentanyl dc dex on and then d/c due to apnea limit sedation for SBT CIWA/etoh abuse CV- NAP SR no pressors RESP- ACUTE HYPOXIC RESP FAILURE intubated see iview failed sbt today with periods of apnea minimize sedation GI etoh cirrhosis with ascities #Acute Blood Loss Anemia #Upper GI Bleed #Thrombocytopenia-Chronic #Alcoholic Liver Cirrhosis with Ascites #Hyperammonemia #Acute Metabolic Encephalopathy #ETOH Abuse para 7-11 cultures pending PPI to BID today octreatide dc trending LFT/ammonia and INR lactulose MD dailyb will place dobhoff and start to feed given unlikely extubation today nutrition consult placed abd ct noted- see report EGD no bleeding today or overnight -ARF; hypok; hypomg #Acute on Chronic Kidney Disease HD 03-06 nephrology following continue to trend BUN and Cr bicarb TID olliguria bruno dc 03-06 bladder can QS k and mg replaced Heme- anemia hgb goal > 7 VTE SCD no product today ID leukocytosis trend temp and WBC curve follow culture data ceftriaxone ro SBT Endo- stress hyperglycemia blood glucose control PRN Disposition Plan: continue ICU care Total Time Spent with Patient (Minutes): 60 History Interval history: no acute events over night Hospitalist Physical - Constitutional Vitals: Temp Pulse Resp BP Pulse Ox 97.2 F L 79 19 100/55 100 03/07/22 08:00 03/07/22 11:00 03/07/22 11:00 03/07/22 11:00 03/07/22 11:00 General appearance: Present: no acute distress, other (Intubated and Sedated) - EENT Eyes: Present: PERRL ENT: clear oral mucosa - Neck Neck: Present: supple, normal ROM - Respiratory Respiratory effort: normal - Cardiovascular Rhythm: regular Heart Sounds: Present: S1 & S2 Peripheral Pulses: within normal limits - Abdominal General gastrointestinal: soft - Integumentary Integumentary: Present: clear, warm - Psychiatric Psychiatric: other - Neurologic Neurologic: other - Allied Health Allied health notes reviewed: nursing HEART Score - HEART Score Troponin: Troponin T 0.057 ng/mL (0.00-0.029) H 03/03/22 19:44 Results - Labs CBC & Chem 7: 03/07/22 05:48 03/07/22 05:48 Labs: Laboratory Last Values WBC 5.7 K/mm3 (4.5-11.0) 03/07/22 05:48 RBC 2.42 M/mm3 (3.65-5.03) L 03/07/22 05:48 Hgb 7.6 gm/dl (10.1-14.3) L 03/07/22 05:48 Hct 22.7 % (30.3-42.9) L 03/07/22 05:48 MCV 94 fl (79-97) 03/07/22 05:48 MCH 31 pg (28-32) 03/07/22 05:48 MCHC 34 % (30-34) 03/07/22 05:48 RDW 23.9 % (13.2-15.2) H 03/07/22 05:48 Plt Count 44 K/mm3 (140-440) L 03/07/22 05:48 Lymph % (Auto) 14.1 % (13.4-35.0) 03/05/22 06:20 [place] % (Auto) 4.4 % (0.0-7.3) 03/05/22 06:20 Eos % (Auto) 2.1 % (0.0-4.3) 03/05/22 06:20 Baso % (Auto) 0.7 % (0.0-1.8) 03/05/22 06:20 Lymph # (Auto) 1.5 K/mm3 (1.2-5.4) 03/05/22 06:20 [place] # (Auto) 0.5 K/mm3 (0.0-0.8) 03/05/22 06:20 Eos # (Auto) 0.2 K/mm3 (0.0-0.4) 03/05/22 06:20 Baso # (Auto) 0.1 K/mm3 (0.0-0.1) 03/05/22 06:20 Seg Neutrophils % 78.7 % (40.0-70.0) H 03/05/22 06:20 Seg Neutrophils # 8.6 K/mm3 (1.8-7.7) H 03/05/22 06:20 PT 22.9 Sec. (12.2-14.9) H 03/07/22 05:48 INR 1.78 (0.87-1.13) H 03/07/22 05:48 ABG pH 7.369 pH Units (7.350-7.450) 03/07/22 04:00 ABG pCO2 42.9 mm Hg 03/07/22 04:00 ABG pO2 97.1 mm Hg (80.0-90.0) H 03/07/22 04:00 ABG HCO3 24.2 mmol/L (20.0-26.0) 03/07/22 04:00 ABG O2 Saturation 97.4 % (95.0-99.0) 03/07/22 04:00 ABG O2 Content 10.5 (0.0-44) 03/07/22 04:00 ABG Base Excess -1.1 mmol/L (-2.0-3.0) 03/07/22 04:00 ABG Hemoglobin 7.7 gm/dl (12.0-16.0) L 03/07/22 04:00 ABG Carboxyhemoglobin 1.6 % (0.0-5.0) 03/07/22 04:00 ABG Methemoglobin 0.5 % (0.0-1.5) 03/07/22 04:00 Oxyhemoglobin 95.3 % (95.0-99.0) 03/07/22 04:00 FiO2 30 % 03/07/22 04:00 Sodium 138 mmol/L (137-145) 03/07/22 05:48 Potassium 3.2 mmol/L (3.6-5.0) L 03/07/22 05:48 Chloride 105.2 mmol/L (98-107) 03/07/22 05:48 Carbon Dioxide 21 mmol/L (22-30) L 03/07/22 05:48 Anion Gap 15 mmol/L 03/07/22 05:48 BUN 43 mg/dL (7-17) H 03/07/22 05:48 Creatinine 4.3 mg/dL (0.6-1.2) H 03/07/22 05:48 Estimated GFR 11 ml/min 03/07/22 05:48 BUN/Creatinine Ratio 10 % 03/07/22 05:48 Glucose 94 mg/dL (65-100) 03/07/22 05:48 POC Glucose 92 mg/dL (70-105) 03/07/22 00:02 Lactic Acid 1.50 mmol/L (0.7-2.0) 03/03/22 19:44 Calcium 7.8 mg/dL (8.4-10.2) L 03/07/22 05:48 Phosphorus 4.50 mg/dL (2.5-4.5) 03/07/22 05:48 Magnesium 1.30 mg/dL (1.7-2.3) L 03/07/22 05:48 Total Bilirubin 2.40 mg/dL (0.1-1.2) H 03/07/22 05:48 AST 29 units/L (5-40) 03/07/22 05:48 ALT 9 units/L (7-56) 03/07/22 05:48 Alkaline Phosphatase 108 units/L (35-129) 03/07/22 05:48 Ammonia 37.0 umol/L (25-60) 03/07/22 05:48 Total Creatine Kinase 31 units/L (30-135) 03/03/22 19:44 Troponin T 0.057 ng/mL (0.00-0.029) H 03/03/22 19:44 Total Protein 5.3 g/dL (6.3-8.2) L 03/07/22 05:48 Albumin 2.1 g/dL (3.9-5) L 03/07/22 05:48 Albumin/Globulin Ratio 0.7 % 03/07/22 05:48 Triglycerides 71 mg/dL (2-149) 03/03/22 19:44 Cholesterol 75 mg/dL (50-199) 03/03/22 19:44 LDL Cholesterol Direct 35 mg/dL (50-130) L 03/03/22 19:44 HDL Cholesterol 21 mg/dL (40-59) L 03/03/22 19:44 Cholesterol/HDL Ratio 3.57 % 03/03/22 19:44 Urine Color [place] (Yellow) 03/04/22 Unknown Urine Turbidity Clear (Clear) 03/04/22 Unknown Urine pH 5.0 (5.0-7.0) 03/04/22 Unknown Ur Specific [place] 1.013 (1.003-1.030) 03/04/22 Unknown Urine Protein <15 mg/dl mg/dL (Negative) 03/04/22 Unknown Urine Glucose (UA) Neg mg/dL (Negative) 03/04/22 Unknown Urine Ketones Neg mg/dL (Negative) 03/04/22 Unknown Urine Blood Neg (Negative) 03/04/22 Unknown Urine Nitrite Neg (Negative) 03/04/22 Unknown Urine Bilirubin Neg (Negative) 03/04/22 Unknown Urine Urobilinogen < 2.0 mg/dL (<2.0) 03/04/22 Unknown Ur Leukocyte Esterase Sm (Negative) 03/04/22 Unknown Urine WBC (Auto) 1.0 /HPF (0.0-6.0) 03/04/22 Unknown Urine RBC (Auto) 1.0 /HPF (0.0-6.0) 03/04/22 Unknown U Epithel Cells (Auto) < 1.0 /HPF (0-13.0) 03/04/22 Unknown Fluid Type Paracentesis 03/06/22 17:22 Fluid Color Yellow 03/06/22 17:22 Fluid Appearance Clear 03/06/22 17:22 Fluid WBC 30 /mm3 03/06/22 17:22 Fluid RBC 791 /mm3 03/06/22 17:22 Fluid Seg Neutrophils 7.0 % 03/06/22 17:22 Fluid Lymphocytes 62.0 % 03/06/22 17:22 Fluid Reactive Lymphs 3.0 % 03/06/22 17:22 Fluid Monocytes 28.0 % 03/06/22 17:22 Fluid Eosinophils Not Reportable 03/06/22 17:22 Fluid Basophils Not Reportable 03/06/22 17:22 Salicylates < 0.3 mg/dL (2.8-20.0) L 03/03/22 19:44 Acetaminophen 5.0 ug/mL (10.0-30.0) L 03/03/22 19:44 Plasma/Serum Alcohol < 0.01 % (0-0.07) 03/03/22 19:44 Hepatitis A IgM Ab Non-reactive (NonReactive) 03/06/22 08:41 Hep Bs Antigen Non-reactive (Negative) 03/06/22 08:41 Hep B Core IgM Ab Non-reactive (NonReactive) 03/06/22 08:41 Hepatitis C Antibody Non-reactive (NonReactive) 03/06/22 08:41 Blood Type O POSITIVE 03/03/22 20:13 Antibody Screen Negative 03/03/22 20:13 Microbiology: Microbiology 03/03/22 19:44 Peripheral/Venous Blood Culture - Preliminary NO GROWTH AFTER 72 HOURS 03/03/22 19:44 Peripheral/Venous Blood Culture - Preliminary NO GROWTH AFTER 72 HOURS 03/04/22 13:15 Tracheal Aspirate Sputum Culture - Preliminary Bruno/IV: Voiding Method Incontinent Active Medications - Current Medications Current Medications: Generic Name Dose Route Start Last Admin Trade Name Freq PRN Reason Stop Dose Admin Hydrophilic Ointment 1 applic 03/04/22 10:47 Lip Therapy Vaseline TP Q2HR PRN Dry Lips Ceftriaxone Sodium 1 gm in 50 mls @ 100 mls/hr 03/04/22 18:00 03/06/22 17:08 Rocephin/Ns 1 Gm/50 Ml IV 03/10/22 18:29 100 mls/hr Q24H FABIEN Administration Sodium Chloride 100 mls @ 999 mls/hr 03/05/22 17:49 Nacl 0.9% IV PETRA PRN Hypotension Magnesium Sulfate 2 gm in 50 mls @ 25 mls/hr 03/07/22 10:00 03/07/22 09:55 Magnesium Sulfate 2gm/50ml IV 03/07/22 14:00 25 mls/hr ONCE@1000 FABIEN Administration Potassium Chloride 10 meq in 100 mls @ 100 mls/hr 03/07/22 10:00 03/07/22 09:56 Kcl 10meq/100ml IV 03/07/22 11:59 100 mls/hr Q1H FABIEN Administration Dexmedetomidine HCl 200 mcg/ 50 mls @ 3.655 mls/hr 03/07/22 10:00 03/07/22 10:40 Sodium Chloride IV 0.2 mcg/kg/hr TITRATE FABIEN 3.655 mls/hr Administration Protocol 0.2 MCG/KG/HR Lactulose 200 gm 03/06/22 10:00 03/07/22 09:56 Lactulose Enema 1000 Ml MD 200 gm DAILY FABIEN Administration Ondansetron HCl 4 mg 03/04/22 00:02 Ondansetron 4 Mg/2 Ml Inj IV Q8H PRN Nausea And Vomiting Pantoprazole Sodium 40 mg 03/08/22 10:00 Pantoprazole 40 Mg Inj IV BID FABIEN Sodium Bicarbonate 1,300 mg 03/05/22 14:00 03/07/22 09:56 Sodium Bicarbonate 650 Mg Tab PO Not Given TID FABIEN Sodium Chloride 10 ml 03/04/22 10:00 03/07/22 09:57 Sodium Chloride 0.9% 10 Ml Flush Syringe IV 10 ml BID FABIEN Administration Sodium Chloride 10 ml 03/04/22 00:02 Sodium Chloride 0.9% 10 Ml Flush Syringe IV PRN PRN LINE FLUSH Nutrition/Malnutrition Assess - Dietary Evaluation Nutrition/Malnutrition Findings: Nutrition Notes Start: 03/04/22 10:49 Freq: Status: Active Protocol: Document 03/06/22 18:22 EVELINE (Rec: 03/06/22 18:26 [facility] [id number]) Nutrition Notes Initial or Follow up Reassessment Other Pertinent Diagnosis AMS, GIB, Cirrhosis, Portal HTN, Ascites Current Diet NPO Labs/Tests BUN 81 Cr 5.9 Ammonia 45 Pertinent Medications D5 1/2NS at 75ml/hr, Lactulose , Propofol at 2.193ml/hr ( provides 58 kcal) Height 5 ft 4 in Weight 73.1 kg [place] Body Weight (kg) 54.54 BMI 27.6 Weight Status Overweight Subjective/Other Information Pt intubated on 03/04. OGT not placed sec to distal esophageal tear. Burn Absent Trauma Absent #1 Nutrition Diagnosis Altered GI function Diagnosis Progress(for reassessment Continues documentation) Is patient on ventilator? Yes Is Patient Ambulatory and/or Out of Bed No REE-([facility]-confined to bed) 1601.220 Calculation Used for Recommendations [facility] Additional Notes Pro needs >1.2g/kg: >88g/day Fluid needs 1-1.5L/day Nutrition Intervention Nutrition Support: Start EN support when medically feasible Goal #1 Start EN support to meet nutrient needs Follow-Up By: 03/08/22 Additional Comments F/U: TF consult, vent status - Malnutrition Assessment Minimum of two criteria: Yes - Attestation Statement I have reviewed and agreed w/ Malnutrition eval & tx plan: Yes
[2022-03-07] MEDS ORDERED: SIMPLE SYRUP 15 ML FEEDTUBE PRN ×2 (14:23)
[2022-03-07] MEDS ORDERED: LIPASE 10,500/PROTEASE 25,000/AMYLASE 43,750 (UNITS) DR CAP FEEDTUBE PRN (14:23)
[2022-03-07] MEDS ORDERED: SODIUM BICARBONATE 325 MG TAB FEEDTUBE PRN (14:23)
--- NOTE | 2022-03-07 15:54 | XRay Report ---
ABDOMEN 1 VIEW INDICATION / CLINICAL INFORMATION: NGT placement. COMPARISON: CT abdomen and pelvis without contrast from 03/03/2022. FINDINGS: TUBES / LINES: An NG tube has been placed and terminates over the gastric body. BOWEL GAS PATTERN: There is nonspecific mild gaseous distention of the stomach. No other significant abnormality. FREE AIR / EXTRALUMINAL GAS: None seen. ADDITIONAL FINDINGS: No significant additional findings. IMPRESSION: Satisfactory positioning of the NG tube. No other acute findings. Signer Name: Clifford Coon MD Signed: 03/07/2022 3:49 PM Workstation Name: [email or web address]
[2022-03-07] MEDS ORDERED: ALBUMIN HUMAN 25% (25 GM/100 ML) INJ IV NR (17:06)
--- NOTE | 2022-03-07 17:11 | Progress Note ---
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 Hyperammonemia Acute on Chronic Kidney Disease on HD s/p therapeutic paracentesis (7 Liters drained) and supportive HD today Hypotensive- IV albumin ordered, Nsaline bolus If blood pressure does not improve, start vasopressor support, keep MAP>65 Will need to address nutritional support- currently strict NPO -Titrate supplemental oxygen to keep SpO2 89-92% -CXR, ABG as clinically indicated -Monitoring renal function, hemodynamics and electrolyte profile -Replete electrolytes as clinically indicated -Empiric antibiotics therapy for SBP- on Ceftriaxone. -Accuchecks with glycemic control. target blood glucose 140-180 mg/dL. Avoid hypoglycemia -VTE prophylaxis- contraindicated at this time- patient has UGIB, s/p PRBC and she has thrombocytopenia -SCDs to lower extremities -Supportive transfusions to keep HgB >7g/dL -Avoid nephrotoxins and renally dose all medications -Renal consult for supportive HD as clinically indicated -Stress ulcer prophylaxis- on therapeutic Pantoprazole -Mobility, frequent turning, off loading per facility protocol to prevent pressure ulcers -Maintain sleep wake cycle, avoid benzodiazepines. -Enteric nutrional support once SBFT position is confirmed -Substance abuse counselling once she is liberated from [facility] and is able to participate in the discussions CONDITION:CRITICAL PROGNOSIS: GUARDED CODE STATUS; FULL CODE The high probability of a clinically significant, sudden or life threatening deterioration of the respiratory, GI system required my full and direct attention, intervention and personal management. The aggregate critical care time was [35] minutes. This time is in addition to time spent performing reported procedures but includes the following: [x] Data Review and interpretation [x] Patient assessment and monitoring of vital signs [x] Documentation [x] Medication orders and management Subjective Date of service: 03/07/22 Principal diagnosis: Upper GI bleed Interval history: This is a 51-year-old female with known past medical history of alcoholic liver disease, HFpEF, recent PEA arrest at [facility] (01/2022), and CKD s/p HD from recent hospitalization, admitted for Acute blood loss anemia 2/2 Upper GIB s/p EGD and remains intubated on [facility]. Seen and examined. Vitals, labs, medications, chart reviewed. Discussed with respiratory care and nursing staff. No acute adverse overnight events. No active bleeding noted. Hemoglobin stable Remains intubated, off sedation Apnea when placed on PSV On Precedex, Hypotensive MVS: PEEP +6/FIO2 40% Objective Vital Signs - 12hr 03/07/22 03/07/22 03/07/22 05:31 06:00 06:30 Temperature Pulse Rate 78 87 79 Pulse Rate [ From Monitor] Respiratory 20 11 L 18 Rate Blood Pressure 111/56 103/61 106/57 O2 Sat by Pulse 100 100 100 Oximetry 03/07/22 03/07/22 03/07/22 07:00 07:17 07:30 Temperature 97.2 F L Pulse Rate 79 80 Pulse Rate [ From Monitor] Respiratory 20 19 Rate Blood Pressure 114/52 115/61 O2 Sat by Pulse 100 100 Oximetry 03/07/22 03/07/22 03/07/22 07:49 08:00 08:30 Temperature 97.2 F L Pulse Rate 77 78 77 Pulse Rate [ 77 From Monitor] Respiratory 20 21 Rate Blood Pressure 115/61 111/52 104/49 O2 Sat by Pulse 100 100 100 Oximetry 03/07/22 03/07/22 03/07/22 09:00 09:30 10:00 Temperature Pulse Rate 76 76 80 Pulse Rate [ From Monitor] Respiratory 20 20 18 Rate Blood Pressure 100/49 109/52 99/42 O2 Sat by Pulse 100 100 100 Oximetry 03/07/22 03/07/22 03/07/22 10:30 11:00 11:30 Temperature Pulse Rate 78 79 83 Pulse Rate [ From Monitor] Respiratory 21 19 16 Rate Blood Pressure 103/52 100/55 109/65 O2 Sat by Pulse 100 100 Oximetry 03/07/22 03/07/22 03/07/22 11:34 11:44 11:48 Temperature 97.2 F L Pulse Rate 77 Pulse Rate [ From Monitor] Respiratory 20 Rate Blood Pressure 109/65 O2 Sat by Pulse 100 100 Oximetry 03/07/22 03/07/22 03/07/22 12:00 12:30 13:00 Temperature 97.2 F L Pulse Rate 75 82 80 Pulse Rate [ 77 From Monitor] Respiratory 20 12 17 Rate Blood Pressure 106/52 102/62 106/57 O2 Sat by Pulse 100 91 Oximetry 03/07/22 03/07/22 03/07/22 13:30 14:00 14:30 Temperature Pulse Rate 77 78 76 Pulse Rate [ From Monitor] Respiratory 14 16 20 Rate Blood Pressure 100/54 111/52 101/47 O2 Sat by Pulse 100 100 100 Oximetry 03/07/22 03/07/22 03/07/22 15:00 15:30 16:00 Temperature Pulse Rate 74 82 73 Pulse Rate [ 77 From Monitor] Respiratory 20 12 20 Rate Blood Pressure 86/40 92/47 82/45 O2 Sat by Pulse 100 100 100 Oximetry 03/07/22 03/07/22 16:31 16:48 Temperature Pulse Rate 70 74 Pulse Rate [ From Monitor] Respiratory 20 Rate Blood Pressure 79/37 89/39 O2 Sat by Pulse 100 Oximetry CBC and BMP: 03/08/22 05:49 03/08/22 05:49 ABG, PT/INR, D-dimer: ABG ABG pH 7.369 pH Units (7.350-7.450) 03/07/22 04:00 ABG pCO2 42.9 mm Hg 03/07/22 04:00 ABG pO2 97.1 mm Hg (80.0-90.0) H 03/07/22 04:00 ABG O2 Saturation 97.4 % (95.0-99.0) 03/07/22 04:00 PT/INR, D-dimer PT 22.9 Sec. (12.2-14.9) H 03/07/22 05:48 INR 1.78 (0.87-1.13) H 03/07/22 05:48 Abnormal lab findings: Abnormal Labs 03/03/22 03/03/22 03/03/22 19:44 19:44 19:44 RBC Hgb Hct MCV MCH RDW Plt Count Seg Neutrophils % Seg Neutrophils # PT 23.2 H INR 1.80 H ABG pH ABG pO2 ABG HCO3 ABG O2 Saturation ABG Base Excess ABG Hemoglobin Oxyhemoglobin Potassium Chloride Carbon Dioxide 20 L BUN 86 H Creatinine 5.5 H Glucose POC Glucose Calcium 8.0 L Magnesium Total Bilirubin 3.60 H Ammonia 141.0 H Troponin T 0.057 H Total Protein 6.1 L Albumin 2.4 L LDL Cholesterol Direct 35 L HDL Cholesterol 21 L Salicylates Acetaminophen 03/03/22 03/03/22 03/03/22 19:44 19:44 21:30 RBC Hgb Hct MCV MCH RDW Plt Count Seg Neutrophils % Seg Neutrophils # PT INR ABG pH ABG pO2 ABG HCO3 ABG O2 Saturation ABG Base Excess -3.7 L ABG Hemoglobin 5.0 L Oxyhemoglobin 94.8 L Potassium Chloride Carbon Dioxide BUN Creatinine Glucose POC Glucose Calcium Magnesium Total Bilirubin Ammonia Troponin T Total Protein Albumin LDL Cholesterol Direct HDL Cholesterol Salicylates < 0.3 L Acetaminophen 5.0 L 03/03/22 03/04/22 03/04/22 21:35 11:03 11:03 RBC 1.69 L 3.00 L Hgb 5.8 L* 9.4 L D Hct 17.2 L* 28.3 L D MCV 102 H MCH 34 H RDW 19.8 H 23.5 H Plt Count 75 L 72 L Seg Neutrophils % 71.2 H Seg Neutrophils # PT 20.7 H INR 1.57 H ABG pH ABG pO2 ABG HCO3 ABG O2 Saturation ABG Base Excess ABG Hemoglobin Oxyhemoglobin Potassium Chloride Carbon Dioxide BUN Creatinine Glucose POC Glucose Calcium Magnesium Total Bilirubin Ammonia Troponin T Total Protein Albumin LDL Cholesterol Direct HDL Cholesterol Salicylates Acetaminophen 03/04/22 03/04/22 03/04/22 11:03 12:00 15:30 RBC Hgb 9.3 L Hct 28.4 L MCV MCH RDW Plt Count Seg Neutrophils % Seg Neutrophils # PT INR ABG pH 7.301 L ABG pO2 273.8 H ABG HCO3 17.6 L ABG O2 Saturation 99.4 H ABG Base Excess -8.1 L ABG Hemoglobin 9.2 L Oxyhemoglobin Potassium Chloride Carbon Dioxide 18 L BUN 79 H Creatinine 5.0 H Glucose POC Glucose Calcium 8.3 L Magnesium Total Bilirubin Ammonia Troponin T Total Protein Albumin LDL Cholesterol Direct HDL Cholesterol Salicylates Acetaminophen 03/05/22 03/05/22 03/05/22 00:27 04:00 06:20 RBC 2.80 L Hgb 8.9 L 8.5 L Hct 27.2 L 26.7 L MCV MCH RDW 24.1 H Plt Count 93 L 94 L Seg Neutrophils % 78.7 H Seg Neutrophils # 8.6 H PT INR ABG pH 7.290 L ABG pO2 145.8 H ABG HCO3 17.9 L ABG O2 Saturation ABG Base Excess -8.0 L ABG Hemoglobin 8.8 L Oxyhemoglobin Potassium Chloride Carbon Dioxide BUN Creatinine Glucose POC Glucose Calcium Magnesium Total Bilirubin Ammonia Troponin T Total Protein Albumin LDL Cholesterol Direct HDL Cholesterol Salicylates Acetaminophen 03/05/22 03/05/22 03/05/22 06:20 06:20 06:20 RBC Hgb Hct MCV MCH RDW Plt Count Seg Neutrophils % Seg Neutrophils # PT 20.6 H INR 1.56 H ABG pH ABG pO2 ABG HCO3 ABG O2 Saturation ABG Base Excess ABG Hemoglobin Oxyhemoglobin Potassium Chloride Carbon Dioxide 16 L BUN 80 H Creatinine 5.5 H Glucose POC Glucose Calcium 8.0 L Magnesium Total Bilirubin Ammonia 73.0 H Troponin T Total Protein Albumin LDL Cholesterol Direct HDL Cholesterol Salicylates Acetaminophen 03/05/22 03/06/22 03/06/22 16:52 03:37 03:37 RBC 2.42 L Hgb 8.5 L 7.6 L Hct 25.6 L 23.1 L MCV MCH RDW 24.2 H Plt Count 74 L 64 L Seg Neutrophils % Seg Neutrophils # PT INR ABG pH ABG pO2 ABG HCO3 ABG O2 Saturation ABG Base Excess ABG Hemoglobin Oxyhemoglobin Potassium Chloride 108.9 H Carbon Dioxide 18 L BUN 81 H Creatinine 5.9 H Glucose 131 H POC Glucose Calcium 7.5 L Magnesium Total Bilirubin Ammonia Troponin T Total Protein Albumin LDL Cholesterol Direct HDL Cholesterol Salicylates Acetaminophen 03/06/22 03/06/22 03/06/22 04:55 11:50 14:30 RBC Hgb Hct MCV MCH RDW Plt Count Seg Neutrophils % Seg Neutrophils # PT 20.8 H INR 1.58 H ABG pH 7.272 L ABG pO2 103.3 H ABG HCO3 18.8 L ABG O2 Saturation ABG Base Excess -7.5 L ABG Hemoglobin 7.6 L Oxyhemoglobin Potassium Chloride Carbon Dioxide BUN Creatinine Glucose POC Glucose 140 H Calcium Magnesium Total Bilirubin Ammonia Troponin T Total Protein Albumin LDL Cholesterol Direct HDL Cholesterol Salicylates Acetaminophen 03/06/22 03/07/22 03/07/22 17:48 04:00 05:48 RBC 2.42 L Hgb 7.6 L Hct 22.7 L MCV MCH RDW 23.9 H Plt Count 44 L Seg Neutrophils % Seg Neutrophils # PT INR ABG pH ABG pO2 97.1 H ABG HCO3 ABG O2 Saturation ABG Base Excess ABG Hemoglobin 7.7 L Oxyhemoglobin Potassium Chloride Carbon Dioxide BUN Creatinine Glucose POC Glucose 126 H Calcium Magnesium Total Bilirubin Ammonia Troponin T Total Protein Albumin LDL Cholesterol Direct HDL Cholesterol Salicylates Acetaminophen 03/07/22 03/07/22 05:48 05:48 RBC Hgb Hct MCV MCH RDW Plt Count Seg Neutrophils % Seg Neutrophils # PT 22.9 H INR 1.78 H ABG pH ABG pO2 ABG HCO3 ABG O2 Saturation ABG Base Excess ABG Hemoglobin Oxyhemoglobin Potassium 3.2 L Chloride Carbon Dioxide 21 L BUN 43 H Creatinine 4.3 H Glucose POC Glucose Calcium 7.8 L Magnesium 1.30 L Total Bilirubin 2.40 H Ammonia Troponin T Total Protein 5.3 L Albumin 2.1 L LDL Cholesterol Direct HDL Cholesterol Salicylates Acetaminophen
--- NOTE | 2022-03-07 17:55 | Gastroenterology Progress Note ---
Assessment and Plan # GI bleed - likely upper GI bleed with variceal bleed vs PUD. - CT showing cirrhosis with portal hypertension and ascites. - s/p EGD on 03/04/2022 with distal esophageal ulcer, duodenal ulcer, portal hypertensive gastropathy, No active bleeding. - no signs of active bleeding at this time. - of note, was able to get information from patient's daughter. She was admitted in 01/2022 at [facility] for GI bleed and ROSEMARY on CKD. was started on HD. s/p EGD with portal hypertensive gastropathy. - H/H stable. 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 - MELD of 29. - decompensated with ascites and portal hypertension. Rec - cont with protonix and octreotide drip. Can stop octreotide tomorrow if h/H stable. - ppx antibiotics - monitor H/H and INR serially and transfuse with Hgb goal >7 and INR <1.5 - - Patient Problems (1) Acute encephalopathy Current Visit: Yes Status: Acute (2) Symptomatic anemia Current Visit: Yes Status: Acute (3) Upper GI bleed Current Visit: Yes Status: Acute Subjective Date of service: 03/07/22 Principal diagnosis: Upper GI bleed Interval history: No acute events overnight. Per nursing no signs of bleeding. Still remains intubated. Off sedation. Objective - Constitutional Vitals: Temp Pulse Resp BP Pulse Ox 97.2 F L 67 17 77/38 97 03/07/22 12:00 03/07/22 17:00 03/07/22 17:00 03/07/22 17:00 03/07/22 17:00 General appearance: no acute distress - Neck Neck: supple - Respiratory Respiratory effort: normal, other (intubated) - Cardiovascular Rhythm: regular - Gastrointestinal General gastrointestinal: Present: soft, non-tender, non-distended - Neurologic Neurological: other (not following commands) - Labs CBC & Chem 7: 03/07/22 05:48 03/07/22 05:48 Labs: Laboratory Results - last 24 hr 03/06/22 03/06/22 03/07/22 17:22 17:48 00:02 WBC RBC Hgb Hct MCV MCH MCHC RDW Plt Count PT INR ABG pH ABG pCO2 ABG pO2 ABG HCO3 ABG O2 Saturation ABG O2 Content ABG Base Excess ABG Hemoglobin ABG Carboxyhemoglobin ABG Methemoglobin Oxyhemoglobin FiO2 Sodium Potassium Chloride Carbon Dioxide Anion Gap BUN Creatinine Estimated GFR BUN/Creatinine Ratio Glucose POC Glucose 126 H 92 Calcium Phosphorus Magnesium Total Bilirubin AST ALT Alkaline Phosphatase Ammonia Total Protein Albumin Albumin/Globulin Ratio Fluid Type Paracentesis Fluid Color Yellow Fluid Appearance Clear Fluid WBC 30 Fluid RBC 791 Fluid Seg Neutrophils 7.0 Fluid Lymphocytes 62.0 Fluid Reactive Lymphs 3.0 Fluid Monocytes 28.0 Fluid Eosinophils Not Reportable Fluid Basophils Not Reportable 03/07/22 03/07/22 03/07/22 04:00 05:48 05:48 WBC 5.7 RBC 2.42 L Hgb 7.6 L Hct 22.7 L MCV 94 MCH 31 MCHC 34 RDW 23.9 H Plt Count 44 L PT 22.9 H INR 1.78 H ABG pH 7.369 ABG pCO2 42.9 ABG pO2 97.1 H ABG HCO3 24.2 ABG O2 Saturation 97.4 ABG O2 Content 10.5 ABG Base Excess -1.1 ABG Hemoglobin 7.7 L ABG Carboxyhemoglobin 1.6 ABG Methemoglobin 0.5 Oxyhemoglobin 95.3 FiO2 30 Sodium Potassium Chloride Carbon Dioxide Anion Gap BUN Creatinine Estimated GFR BUN/Creatinine Ratio Glucose POC Glucose Calcium Phosphorus Magnesium Total Bilirubin AST ALT Alkaline Phosphatase Ammonia Total Protein Albumin Albumin/Globulin Ratio Fluid Type Fluid Color Fluid Appearance Fluid WBC Fluid RBC Fluid Seg Neutrophils Fluid Lymphocytes Fluid Reactive Lymphs Fluid Monocytes Fluid Eosinophils Fluid Basophils 03/07/22 03/07/22 05:48 05:48 WBC RBC Hgb Hct MCV MCH MCHC RDW Plt Count PT INR ABG pH ABG pCO2 ABG pO2 ABG HCO3 ABG O2 Saturation ABG O2 Content ABG Base Excess ABG Hemoglobin ABG Carboxyhemoglobin ABG Methemoglobin Oxyhemoglobin FiO2 Sodium 138 Potassium 3.2 L Chloride 105.2 Carbon Dioxide 21 L Anion Gap 15 BUN 43 H Creatinine 4.3 H Estimated GFR 11 BUN/Creatinine Ratio 10 Glucose 94 POC Glucose Calcium 7.8 L Phosphorus 4.50 Magnesium 1.30 L Total Bilirubin 2.40 H AST 29 ALT 9 Alkaline Phosphatase 108 Ammonia 37.0 Total Protein 5.3 L Albumin 2.1 L Albumin/Globulin Ratio 0.7 Fluid Type Fluid Color Fluid Appearance Fluid WBC Fluid RBC Fluid Seg Neutrophils Fluid Lymphocytes Fluid Reactive Lymphs Fluid Monocytes Fluid Eosinophils Fluid Basophils
[2022-03-07] MEDS: cefTRIAXone/NS 1 GM/50 ML 1 GM/50 ML BAG IV SCH (18:15)
[2022-03-07] MEDS: NORepinephrine/NS 8 MG-250 ML 8 MG/250 ML INFUS..BTL IV SCH (20:22)
[2022-03-08 05:02] LABS: ABG Base Excess -3.4 mmol/L (-2.0-3.0); ABG HCO3 20.4 mmol/L (20.0-26.0); ABG Methemoglobin 0.7 % (0.0-1.5); ABG Oxygen Saturation 98.1 % (95.0-99.0); ABG PCO2 31.3 mm Hg; ABG PH 7.431 pH Units (7.350-7.450); ABG PO2 108.4 mm Hg (80.0-90.0)
[2022-03-08 06:15] LABS: Basophils # (Auto) 0.1 K/mm3 (0.0-0.1); Basophils % (Auto) 1.4 % (0.0-1.8); Eosinophils # (Auto) 0.1 K/mm3 (0.0-0.4); Eosinophils % (Auto) 1.8 % (0.0-4.3); Hematocrit 22.5 % (30.3-42.9); Hemoglobin 7.6 gm/dl (10.1-14.3); Lymphocytes # (Auto) 1.5 K/mm3 (1.2-5.4); Mean Corpuscular HGB Conc 34 % (30-34); Mean Corpuscular Volume 94 fl (79-97); Monocytes # (Auto) 0.5 K/mm3 (0.0-0.8); Monocytes % (Auto) 7.3 % (0.0-7.3)
[2022-03-08 06:17] LABS: Platelet Count 54 K/mm3 (140-440); Red Cell Distribution Width 24.1 % (13.2-15.2)
[2022-03-08 06:38] LABS: Albumin 2.4 g/dL (3.9-5); Calcium 8.3 mg/dL (8.4-10.2)
--- NOTE | 2022-03-08 08:27 | Progress Note ---
Assessment and Plan Impression * Acute kidney injury vs ROSEMARY on CKD --HD initiated at [facility] in 01/2022 * Acute hypoxic respiratory failure, s/p intubation * Cirrhosis * Anemia secondary to acute blood loss/GI bleed --s/p EGD on 03/04/2022 with distal esophageal ulcer, duodenal ulcer, portal hypertensive gastropathy. No active bleeding. * Esophageal/duodenal ulcer * Metabolic acidosis * Hypotension, secondary to ABL * Thrombocytopenia * Acute encephalopathy Plan: * HD today * Continue MWF schedule for now - UF as tolerated * Transfuse for hemoglobin less than 7 * Maintain MAP>65 - pressors prn * Strict I/O * Dose medications for renal function * Avoid nephrotoxins * Diet per GI/primary team Subjective Date of service: 03/08/22 Principal diagnosis: Upper GI bleed Interval history: Patient remains intubated - ACVC Rate 20 TV 400 FiO2 25 PEEP 6 Currently on Levophed - 6mcg/min - MAP 67 Objective - Vital Signs Vital signs: Vital Signs - 12hr 03/07/22 03/07/22 03/07/22 20:30 20:45 20:52 Temperature Pulse Rate 76 72 73 Pulse Rate [ From Monitor] Respiratory 14 14 Rate Blood Pressure 91/41 100/49 100/49 O2 Sat by Pulse 100 100 100 Oximetry 03/07/22 03/07/22 03/07/22 21:00 21:15 21:30 Temperature Pulse Rate 77 79 80 Pulse Rate [ From Monitor] Respiratory 20 20 17 Rate Blood Pressure 90/41 85/41 94/43 O2 Sat by Pulse 100 Oximetry 03/07/22 03/07/22 03/07/22 21:45 22:00 22:15 Temperature Pulse Rate 82 88 88 Pulse Rate [ From Monitor] Respiratory 18 14 21 Rate Blood Pressure 103/50 94/39 86/41 O2 Sat by Pulse 100 100 Oximetry 03/07/22 03/07/22 03/07/22 22:30 22:45 23:00 Temperature Pulse Rate 85 87 90 Pulse Rate [ From Monitor] Respiratory 21 22 17 Rate Blood Pressure 82/41 80/43 74/45 O2 Sat by Pulse 100 Oximetry 03/07/22 03/07/22 03/07/22 23:15 23:26 23:27 Temperature Pulse Rate 89 94 H 94 H Pulse Rate [ From Monitor] Respiratory 20 21 Rate Blood Pressure 90/57 90/57 O2 Sat by Pulse 100 100 Oximetry 03/07/22 03/07/22 03/08/22 23:30 23:45 00:00 Temperature 97.9 F Pulse Rate 86 91 H 91 H Pulse Rate [ 94 H From Monitor] Respiratory 19 20 23 Rate Blood Pressure 96/63 94/56 86/46 O2 Sat by Pulse 100 100 Oximetry 03/08/22 03/08/22 03/08/22 00:15 00:30 00:45 Temperature Pulse Rate 93 H 91 H 89 Pulse Rate [ From Monitor] Respiratory 21 20 20 Rate Blood Pressure 90/53 90/48 O2 Sat by Pulse Oximetry 03/08/22 03/08/22 03/08/22 01:00 01:02 01:15 Temperature 97.9 F Pulse Rate 95 H 91 H Pulse Rate [ From Monitor] Respiratory 19 20 Rate Blood Pressure 101/56 90/49 O2 Sat by Pulse Oximetry 03/08/22 03/08/22 03/08/22 01:30 01:45 02:00 Temperature Pulse Rate 91 H 92 H 90 Pulse Rate [ From Monitor] Respiratory 20 18 21 Rate Blood Pressure 93/54 97/52 101/56 O2 Sat by Pulse Oximetry 03/08/22 03/08/22 03/08/22 02:15 02:30 02:45 Temperature Pulse Rate 92 H 94 H 93 H Pulse Rate [ From Monitor] Respiratory 20 20 21 Rate Blood Pressure 102/53 101/55 99/52 O2 Sat by Pulse Oximetry 03/08/22 03/08/22 03/08/22 03:00 03:15 03:30 Temperature Pulse Rate 90 94 H 96 H Pulse Rate [ From Monitor] Respiratory 21 19 18 Rate Blood Pressure 97/48 104/53 102/53 O2 Sat by Pulse Oximetry 03/08/22 03/08/22 03/08/22 03:45 04:00 04:15 Temperature 98.8 F Pulse Rate 96 H 96 H 99 H Pulse Rate [ 99 H From Monitor] Respiratory 21 20 19 Rate Blood Pressure 107/57 110/52 113/58 O2 Sat by Pulse 100 Oximetry 03/08/22 03/08/22 03/08/22 04:30 04:45 05:00 Temperature Pulse Rate 98 H 104 H 100 H Pulse Rate [ From Monitor] Respiratory 17 19 19 Rate Blood Pressure 119/61 122/65 121/59 O2 Sat by Pulse 99 97 99 Oximetry 07/13/22 07/13/22 07/13/22 05:15 05:30 05:45 Temperature Pulse Rate 100 H 99 H 90 Pulse Rate [ From Monitor] Respiratory 14 19 20 Rate Blood Pressure 109/61 110/52 100/38 O2 Sat by Pulse 100 100 100 Oximetry 03/08/22 03/08/22 03/08/22 06:00 06:15 06:30 Temperature Pulse Rate 93 H 91 H 96 H Pulse Rate [ From Monitor] Respiratory 20 18 14 Rate Blood Pressure 109/47 109/53 97/52 O2 Sat by Pulse 100 100 100 Oximetry 03/08/22 03/08/22 06:45 07:00 Temperature Pulse Rate 99 H 94 H Pulse Rate [ From Monitor] Respiratory 18 18 Rate Blood Pressure 113/47 114/57 O2 Sat by Pulse 100 100 Oximetry - General Appearance General appearance: well-developed, other (appears older than stated age) EENT: ATNC, other (ETT in place) Respiratory: Present: Other (coarse breath sounds) Cardiology: regular, S1S2 Gastrointestinal: no tenderness, no distended Integumentary: warm and dry Neurologic: other (opens eyes to tactile stimuli) Musculoskeletal: other (trace-1+ dependent edema) - Lab 03/08/22 05:49 03/08/22 05:49 Most recent lab results ABG pH 7.431 pH Units (7.350-7.450) 03/08/22 04:20 ABG pCO2 31.3 mm Hg 03/08/22 04:20 ABG pO2 108.4 mm Hg (80.0-90.0) H 03/08/22 04:20 ABG HCO3 20.4 mmol/L (20.0-26.0) 03/08/22 04:20 ABG O2 Saturation 98.1 % (95.0-99.0) 03/08/22 04:20 Calcium 8.3 mg/dL (8.4-10.2) L 03/08/22 05:49 Phosphorus 4.50 mg/dL (2.5-4.5) 03/07/22 05:48 Magnesium 1.70 mg/dL (1.7-2.3) 03/08/22 05:49 Medications & Allergies - Medications Allergies/Adverse Reactions: Allergies Penicillins Allergy (Verified 03/03/22 17:17) Rash Home Medications: Home Medications Medication Instructions Recorded Confirmed Last Taken Type FLUoxetine [PROzac] 20 mg PO QDAY #30 capsule 04/27/16 12/30/16 Unknown Rx Folic Acid 1 tab PO QDAY #30 tab 04/27/16 12/30/16 Unknown Rx Multivitamin Tab [Multiple Vitamin 1 each PO ONCE #30 tablet 04/27/16 12/30/16 Unknown Rx TAB (Theragran)] Thiamine [Vitamin B-1] 100 mg PO QDAY #30 tablet 04/27/16 12/30/16 Unknown Rx traZODone [Desyrel] 50 mg PO QHS #30 tab 04/27/16 12/30/16 Unknown Rx chlordiazePOXIDE [Librium] 25 mg PO Q6H #10 capsule 08/11/20 Unknown Rx Active Medications: Generic Name Dose Route Start Last Admin Trade Name Freq PRN Reason Stop Dose Admin Lipase/Protease/Amylase 1 each 03/07/22 14:23 Lipase 10,500/Protease 25,000/Amylase 43,750 (Units) Dr Villalobos FEEDTUBE PRN PRN For Clogged Feeding Tube Hydrophilic Ointment 1 applic 03/04/22 10:47 Lip Therapy Vaseline TP Q2HR PRN Dry Lips Ceftriaxone Sodium 1 gm in 50 mls @ 100 mls/hr 03/04/22 18:00 03/07/22 18:15 Rocephin/Ns 1 Gm/50 Ml IV 03/10/22 18:29 100 mls/hr Q24H FABIEN Administration Sodium Chloride 100 mls @ 999 mls/hr 03/05/22 17:49 Nacl 0.9% IV PETRA PRN Hypotension Dexmedetomidine HCl 200 mcg/ 50 mls @ 3.655 mls/hr 03/07/22 10:00 03/08/22 05:03 Sodium Chloride IV 0.2 mcg/kg/hr TITRATE FABIEN 3.655 mls/hr Titration Protocol 0.2 MCG/KG/HR NORepinephrine/NS 8 MG-250 ML 8 mg in 250 mls @ 3.75 mls/hr 03/07/22 19:00 03/08/22 05:03 Norepinephrine/Ns 8 Mg-250 Ml (Double Conc) IV 6 mcg/min TITRATE FABIEN 11.25 mls/hr Titration Protocol 2 MCG/MIN Lactulose 200 gm 03/06/22 10:00 07/12/22 09:56 Lactulose Enema 1000 Ml VT 200 gm DAILY FABIEN Administration Ondansetron HCl 4 mg 03/04/22 00:02 Ondansetron 4 Mg/2 Ml Inj IV Q8H PRN Nausea And Vomiting Pantoprazole Sodium 40 mg 03/08/22 10:00 Pantoprazole 40 Mg Inj IV BID FABIEN Simple Syrup 15 ml 03/07/22 14:23 03/07/22 17:16 Simple Syrup 15 Ml FEEDTUBE 15 ml PRN PRN Administration Hypoglycemia Simple Syrup 30 ml 03/07/22 14:23 Simple Syrup 15 Ml FEEDTUBE PRN PRN Hypoglycemia Sodium Bicarbonate 1,300 mg 03/05/22 14:00 03/07/22 20:22 Sodium Bicarbonate 650 Mg Tab PO 1,300 mg TID FABIEN Administration Sodium Bicarbonate 325 mg 03/07/22 14:23 Sodium Bicarbonate 325 Mg Tab FEEDTUBE PRN PRN For Clogged Feeding Tube Sodium Chloride 10 ml 03/04/22 10:00 03/07/22 21:32 Sodium Chloride 0.9% 10 Ml Flush Syringe IV 10 ml BID FABIEN Administration Sodium Chloride 10 ml 03/04/22 00:02 Sodium Chloride 0.9% 10 Ml Flush Syringe IV PRN PRN LINE FLUSH
--- NOTE | 2022-03-08 09:11 | Gastroenterology Progress Note ---
Assessment and Plan # GI bleed - likely upper GI bleed with variceal bleed vs PUD. - CT showing cirrhosis with portal hypertension and ascites. - s/p EGD on 03/04/2022 with distal esophageal ulcer, duodenal ulcer, portal hypertensive gastropathy, No active bleeding. - no signs of active bleeding at this time. - of note, was able to get information from patient's daughter. She was admitted in 01/2022 at [facility] for GI bleed and ROSEMARY on CKD. was started on HD. s/p EGD with portal hypertensive gastropathy. - H/H stable. 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 - MELD of 29. - decompensated with ascites and portal hypertension. - s/p paracentesis. fluid studies negative for SBP. Rec -Continue with Protonix IV. -Can discontinue octreotide drip. -Continue with prophylactic antibiotics for total of 7 days. -Continue with lactulose. Add Xifaxan twice daily. -Monitor H&H. -We will sign off. Please call us back as needed. - Patient Problems (1) Acute encephalopathy Current Visit: Yes Status: Acute (2) Symptomatic anemia Current Visit: Yes Status: Acute (3) Upper GI bleed Current Visit: Yes Status: Acute Subjective Date of service: 03/08/22 Principal diagnosis: Upper GI bleed Interval history: Patient remains intubated. Plan for SBT today. Per nursing had green stool. Not following commands. Objective - Constitutional Vitals: Temp Pulse Resp BP Pulse Ox 97.9 F 95 H 19 107/56 100 03/08/22 08:00 03/08/22 08:30 03/08/22 08:30 03/08/22 08:30 03/08/22 07:30 General appearance: no acute distress - Respiratory Respiratory effort: normal, other (Intubated) - Cardiovascular Rhythm: regular Heart Sounds: Present: S1 & S2 - Gastrointestinal General gastrointestinal: Present: soft, non-tender, non-distended - Integumentary Integumentary: Absent: jaundice - Psychiatric Psychiatric: other (Spontaneous movements but not following commands.) - Labs CBC & Chem 7: 03/08/22 05:49 03/08/22 05:49 Labs: Laboratory Results - last 24 hr 03/08/22 03/08/22 03/08/22 04:20 05:49 05:49 WBC 6.7 RBC 2.40 L Hgb 7.6 L Hct 22.5 L MCV 94 MCH 32 MCHC 34 RDW 24.1 H Plt Count 54 L Lymph % (Auto) 22.0 [place] % (Auto) 7.3 Eos % (Auto) 1.8 Baso % (Auto) 1.4 Lymph # (Auto) 1.5 [place] # (Auto) 0.5 Eos # (Auto) 0.1 Baso # (Auto) 0.1 Seg Neutrophils % 67.5 Seg Neutrophils # 4.5 ABG pH 7.431 ABG pCO2 31.3 ABG pO2 108.4 H ABG HCO3 20.4 ABG O2 Saturation 98.1 ABG O2 Content 10.6 ABG Base Excess -3.4 L ABG Hemoglobin 7.7 L ABG Carboxyhemoglobin 1.6 ABG Methemoglobin 0.7 Oxyhemoglobin 95.9 FiO2 25 Sodium 141 Potassium 3.4 L Chloride 106.3 Carbon Dioxide 19 L Anion Gap 19 BUN 46 H Creatinine 4.4 H Estimated GFR 11 BUN/Creatinine Ratio 10 Glucose 97 Calcium 8.3 L Magnesium 1.70 Total Bilirubin 2.20 H AST 30 ALT 10 Alkaline Phosphatase 99 Total Protein 5.3 L Albumin 2.4 L Albumin/Globulin Ratio 0.8 - Imaging CT scan: report reviewed
[2022-03-08] MEDS: SODIUM BICARBONATE 650 MG TAB PO SCH ×2 (09:51→14:13)
[2022-03-08] MEDS: PANTOPRAZOLE 40 MG INJ IV SCH ×2 (09:51→21:56)
[2022-03-08] MEDS ORDERED: K-PHOS NEUTRAL 250 MG TAB PO SCH (14:00)
[2022-03-08] MEDS: RIFAXIMIN 550 MG TAB FEEDTUBE SCH ×2 (14:12→21:57)
[2022-03-08] MEDS: FLUoxetine 20 MG CAP FEEDTUBE SCH (14:12)
[2022-03-08] MEDS: THIAMINE 100 MG TAB FEEDTUBE SCH (14:12)
[2022-03-08] MEDS: LACTULOSE 20 GM/30 ML ORAL LIQD FEEDTUBE SCH (14:12)
[2022-03-08] MEDS: FOLIC ACID 1 MG TAB FEEDTUBE SCH (14:13)
[2022-03-08] MEDS: NORepinephrine/NS 8 MG-250 ML 8 MG/250 ML INFUS..BTL IV SCH (14:23)
[2022-03-08] MEDS ORDERED: MIDODRINE 5 MG TAB PO SCH (15:00)
[2022-03-08] MEDS ORDERED: SODIUM CHLORIDE 0.9% 100 ML IV PRN (16:30)
[2022-03-08] MEDS: MIDODRINE 10 MG TAB PO SCH ×2 (17:06→21:57)
[2022-03-08] MEDS: cefTRIAXone/NS 1 GM/50 ML 1 GM/50 ML BAG IV SCH (17:06)
--- NOTE | 2022-03-08 18:06 | XRay Report ---
CHEST 1 VIEW 03/08/2022 4:44 PM INDICATION / CLINICAL INFORMATION: follow up respiratory failure. COMPARISON: None available. FINDINGS: SUPPORT DEVICES: Vas-Cath tip overlies distal SVC. ET tube is satisfactory in position. NG tube tip i s not well seen HEART / MEDIASTINUM: No significant abnormality. LUNGS / PLEURA: Mild increased pulmonary vascularity No pneumothorax. Signer Name: Markie Zamudio MD Signed: 03/08/2022 5:59 PM Workstation Name: [id number]
--- NOTE | 2022-03-08 18:50 | Progress Note ---
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 Hyperammonemia Acute on Chronic Kidney Disease on HD s/p therapeutic paracentesis (7 Liters drained) and supportive HD-yesterday Hypotensive- On vasopressor support, keep MAP>65- will need CVL Discussed care plan with the daughter and updated her -Titrate supplemental oxygen to keep SpO2 89-92% -CXR, ABG as clinically indicated -Monitoring renal function, hemodynamics and electrolyte profile -Replete electrolytes as clinically indicated -Empiric antibiotics therapy for SBP- on Ceftriaxone. -Accuchecks with glycemic control. target blood glucose 140-180 mg/dL. Avoid hypoglycemia -VTE prophylaxis- contraindicated at this time- patient has UGIB, s/p PRBC and she has thrombocytopenia -SCDs to lower extremities -Supportive transfusions to keep HgB >7g/dL -Avoid nephrotoxins and renally dose all medications -Supportive HD as clinically indicated by Renal service -Stress ulcer prophylaxis- on therapeutic Pantoprazole -Mobility, frequent turning, off loading per facility protocol to prevent pressure ulcers -Maintain sleep wake cycle, avoid benzodiazepines. -Enteric nutritional support once SBFT position is confirmed -Substance abuse counselling once she is liberated from MVS and is able to participate in the discussions CONDITION:CRITICAL PROGNOSIS: GUARDED CODE STATUS; FULL CODE The high probability of a clinically significant, sudden or life threatening deterioration of the respiratory, GI system required my full and direct attention, intervention and personal management. The aggregate critical care time was [35] minutes. This time is in addition to time spent performing r eported procedures but includes the following: [x] Data Review and interpretation [x] Patient assessment and monitoring of vital signs [x] Documentation [x] Medication orders and management Subjective Date of service: 03/08/22 Principal diagnosis: Upper GI bleed Interval history: This is a 51-year-old female with known past medical history of alcoholic liver disease, HFpEF, recent PEA arrest at [facility] (01/2022), and CKD s/p HD from recent hospitalization, admitted for Acute blood loss anemia 2/2 Upper GIB s/p EGD and remains intubated on MVS. Seen and examined. Vitals, labs, medications, chart reviewed. Discussed with respiratory care and nursing staff. No acute adverse overnight events. No active bleeding noted. Hemoglobin stable Remains intubated, off sedation Apnea when placed on PSV On Precedex, Hypotensive , now requiring vasopressor support MVS: PEEP +6/FIO2 40% Objective - Exam Narrative Exam: Vitals reviewed General appearance: Present: no acute distress, other (Intubated and Sedated) Chronically ill looking, temporal wasting Orally intubated, no patient-ventilator dys-synchrony Right chest wall perm-cath - EENT Eyes: Present: PERRL - Respiratory Respiratory effort: normal Respiratory: bilateral: diminished, no rhonchi - Cardiovascular Rhythm: regular Heart Sounds: Present: S1 & S2 - Extremities Extremities: no ischemia, pulses intact, pulses symmetrical Extremity abnormal: edema - Peripheral Assessment Bilateral Lower Extremity Edema Type: Pitting Edema Degree: 2+ Capillary Refill: < 3 seconds Skin Temperature: Warm Generalized Edema Type: Non-pitting Capillary Refill: < 3 seconds Skin Temperature: Warm Peripheral Pulses: within normal limits - Abdominal General gastrointestinal: soft, distended, normal bowel sounds Ascites - Integumentary Integumentary: Present: warm, dry, pale - Psychiatric Psychiatric: other (Intubated and sedated) - Neurologic Neurologic: opens eyes on verbal command, obeys simple commands Vital Signs - 12hr 03/08/22 03/08/22 03/08/22 07:00 07:15 07:30 Temperature Pulse Rate 94 H 93 H 92 H Pulse Rate [ From Monitor] Respiratory 18 16 20 Rate Blood Pressure 114/57 113/56 107/54 O2 Sat by Pulse 100 100 100 Oximetry O2 Sat by Pulse Oximetry [ Bilateral] 03/08/22 03/08/22 03/08/22 07:45 08:00 08:15 Temperature 97.9 F Pulse Rate 94 H 92 H 94 H Pulse Rate [ 92 H From Monitor] Respiratory 20 18 19 Rate Blood Pressure 111/56 113/56 114/55 O2 Sat by Pulse 100 Oximetry O2 Sat by Pulse Oximetry [ Bilateral] 03/08/22 03/08/22 03/08/22 08:30 08:45 08:55 Temperature Pulse Rate 95 H 89 88 Pulse Rate [ From Monitor] Respiratory 19 20 Rate Blood Pressure 107/56 103/49 109/57 O2 Sat by Pulse 100 Oximetry O2 Sat by Pulse Oximetry [ Bilateral] 03/08/22 03/08/22 03/08/22 09:00 09:15 09:30 Temperature Pulse Rate 90 92 H 94 H Pulse Rate [ From Monitor] Respiratory 16 17 22 Rate Blood Pressure 109/57 107/60 103/50 O2 Sat by Pulse 100 Oximetry O2 Sat by Pulse Oximetry [ Bilateral] 03/08/22 03/08/22 03/08/22 09:45 10:00 10:15 Temperature Pulse Rate 92 H 91 H 92 H Pulse Rate [ From Monitor] Respiratory 17 20 20 Rate Blood Pressure 106/54 100/55 108/60 O2 Sat by Pulse 100 100 Oximetry O2 Sat by Pulse Oximetry [ Bilateral] 03/08/22 03/08/22 03/08/22 10:30 10:45 11:00 Temperature Pulse Rate 88 89 88 Pulse Rate [ From Monitor] Respiratory 21 19 22 Rate Blood Pressure 111/56 110/57 115/56 O2 Sat by Pulse 100 Oximetry O2 Sat by Pulse Oximetry [ Bilateral] 03/08/22 03/08/22 03/08/22 11:15 11:30 11:45 Temperature Pulse Rate 85 87 87 Pulse Rate [ From Monitor] Respiratory 20 20 20 Rate Blood Pressure 106/54 111/59 105/56 O2 Sat by Pulse 100 Oximetry O2 Sat by Pulse Oximetry [ Bilateral] 03/08/22 03/08/22 03/08/22 12:00 12:10 12:15 Temperature 97.5 F L Pulse Rate 87 84 90 Pulse Rate [ 87 From Monitor] Respiratory 14 15 Rate Blood Pressure 104/52 104/52 107/57 O2 Sat by Pulse 100 100 Oximetry O2 Sat by Pulse Oximetry [ Bilateral] 03/08/22 03/08/22 03/08/22 12:30 12:45 13:00 Temperature Pulse Rate 89 90 86 Pulse Rate [ From Monitor] Respiratory 14 16 16 Rate Blood Pressure 111/59 116/62 110/53 O2 Sat by Pulse 100 100 Oximetry O2 Sat by Pulse Oximetry [ Bilateral] 03/08/22 03/08/22 03/08/22 13:15 13:30 13:45 Temperature Pulse Rate 87 86 87 Pulse Rate [ From Monitor] Respiratory 17 22 16 Rate Blood Pressure 107/55 105/54 108/57 O2 Sat by Pulse 100 100 Oximetry O2 Sat by Pulse Oximetry [ Bilateral] 03/08/22 03/08/22 03/08/22 14:00 14:15 14:30 Temperature 97.5 F L Pulse Rate 88 82 89 Pulse Rate [ From Monitor] Respiratory 20 20 19 Rate Blood Pressure 107/54 107/53 105/55 O2 Sat by Pulse Oximetry O2 Sat by Pulse 100 Oximetry [ Bilateral] 03/08/22 03/08/22 03/08/22 14:45 14:52 15:00 Temperature Pulse Rate 86 85 84 Pulse Rate [ From Monitor] Respiratory 24 18 Rate Blood Pressure 105/52 108/52 98/53 O2 Sat by Pulse 100 Oximetry O2 Sat by Pulse Oximetry [ Bilateral] 03/08/22 03/08/22 03/08/22 15:15 15:30 15:45 Temperature Pulse Rate 91 H 94 H 93 H Pulse Rate [ From Monitor] Respiratory 17 18 21 Rate Blood Pressure 93/51 101/68 101/42 O2 Sat by Pulse 99 97 99 Oximetry O2 Sat by Pulse Oximetry [ Bilateral] 03/08/22 03/08/22 03/08/22 16:00 16:15 16:16 Temperature 98.1 F Pulse Rate 93 H 96 H 97 H Pulse Rate [ 95 H From Monitor] Respiratory 21 21 Rate Blood Pressure 93/49 107/51 107/51 O2 Sat by Pulse 98 97 Oximetry O2 Sat by Pulse Oximetry [ Bilateral] 03/08/22 03/08/22 03/08/22 16:30 16:45 17:00 Temperature Pulse Rate 95 H 94 H 94 H Pulse Rate [ From Monitor] Respiratory 20 19 20 Rate Blood Pressure 99/47 100/53 99/57 O2 Sat by Pulse 95 Oximetry O2 Sat by Pulse Oximetry [ Bilateral] 03/08/22 03/08/22 03/08/22 17:15 17:30 17:45 Temperature Pulse Rate 92 H 93 H 93 H Pulse Rate [ From Monitor] Respiratory 20 17 18 Rate Blood Pressure 107/57 102/58 107/55 O2 Sat by Pulse 97 97 Oximetry O2 Sat by Pulse Oximetry [ Bilateral] 03/08/22 03/08/22 17:52 18:00 Temperature 98.6 F Pulse Rate 90 94 H Pulse Rate [ From Monitor] Respiratory 20 Rate Blood Pressure 107/57 115/60 O2 Sat by Pulse Oximetry O2 Sat by Pulse 98 Oximetry [ Bilateral] CBC and BMP: 03/13/22 05:47 03/13/22 05:47 ABG, PT/INR, D-dimer: ABG ABG pH 7.431 pH Units (7.350-7.450) 03/08/22 04:20 ABG pCO2 31.3 mm Hg 03/08/22 04:20 ABG pO2 108.4 mm Hg (80.0-90.0) H 03/08/22 04:20 ABG O2 Saturation 98.1 % (95.0-99.0) 03/08/22 04:20 PT/INR, D-dimer PT 22.9 Sec. (12.2-14.9) H 03/07/22 05:48 INR 1.78 (0.87-1.13) H 03/07/22 05:48 Abnormal lab findings: Abnormal Labs 03/03/22 03/03/22 03/03/22 19:44 19:44 19:44 RBC Hgb Hct MCV MCH RDW Plt Count Seg Neutrophils % Seg Neutrophils # PT 23.2 H INR 1.80 H ABG pH ABG pO2 ABG HCO3 ABG O2 Saturation ABG Base Excess ABG Hemoglobin Oxyhemoglobin Potassium Chloride Carbon Dioxide 20 L BUN 86 H Creatinine 5.5 H Glucose POC Glucose Calcium 8.0 L Magnesium Total Bilirubin 3.60 H Ammonia 141.0 H Troponin T 0.057 H Total Protein 6.1 L Albumin 2.4 L LDL Cholesterol Direct 35 L HDL Cholesterol 21 L Salicylates Acetaminophen 03/03/22 03/03/22 03/03/22 19:44 19:44 21:30 RBC Hgb Hct MCV MCH RDW Plt Count Seg Neutrophils % Seg Neutrophils # PT INR ABG pH ABG pO2 ABG HCO3 ABG O2 Saturation ABG Base Excess -3.7 L ABG Hemoglobin 5.0 L Oxyhemoglobin 94.8 L Potassium Chloride Carbon Dioxide BUN Creatinine Glucose POC Glucose Calcium Magnesium Total Bilirubin Ammonia Troponin T Total Protein Albumin LDL Cholesterol Direct HDL Cholesterol Salicylates < 0.3 L Acetaminophen 5.0 L 03/03/22 03/04/22 03/04/22 21:35 11:03 11:03 RBC 1.69 L 3.00 L Hgb 5.8 L* 9.4 L D Hct 17.2 L* 28.3 L D MCV 102 H MCH 34 H RDW 19.8 H 23.5 H Plt Count 75 L 72 L Seg Neutrophils % 71.2 H Seg Neutrophils # PT 20.7 H INR 1.57 H ABG pH ABG pO2 ABG HCO3 ABG O2 Saturation ABG Base Excess ABG Hemoglobin Oxyhemoglobin Potassium Chloride Carbon Dioxide BUN Creatinine Glucose POC Glucose Calcium Magnesium Total Bilirubin Ammonia Troponin T Total Protein Albumin LDL Cholesterol Direct HDL Cholesterol Salicylates Acetaminophen 03/04/22 03/04/22 03/04/22 11:03 12:00 15:30 RBC Hgb 9.3 L Hct 28.4 L MCV MCH RDW Plt Count Seg Neutrophils % Seg Neutrophils # PT INR ABG pH 7.301 L ABG pO2 273.8 H ABG HCO3 17.6 L ABG O2 Saturation 99.4 H ABG Base Excess -8.1 L ABG Hemoglobin 9.2 L Oxyhemoglobin Potassium Chloride Carbon Dioxide 18 L BUN 79 H Creatinine 5.0 H Glucose POC Glucose Calcium 8.3 L Magnesium Total Bilirubin Ammonia Troponin T Total Protein Albumin LDL Cholesterol Direct HDL Cholesterol Salicylates Acetaminophen 03/05/22 03/05/22 03/05/22 00:27 04:00 06:20 RBC 2.80 L Hgb 8.9 L 8.5 L Hct 27.2 L 26.7 L MCV MCH RDW 24.1 H Plt Count 93 L 94 L Seg Neutrophils % 78.7 H Seg Neutrophils # 8.6 H PT INR ABG pH 7.290 L ABG pO2 145.8 H ABG HCO3 17.9 L ABG O2 Saturation ABG Base Excess -8.0 L ABG Hemoglobin 8.8 L Oxyhemoglobin Potassium Chloride Carbon Dioxide BUN Creatinine Glucose POC Glucose Calcium Magnesium Total Bilirubin Ammonia Troponin T Total Protein Albumin LDL Cholesterol Direct HDL Cholesterol Salicylates Acetaminophen 03/05/22 03/05/22 03/05/22 06:20 06:20 06:20 RBC Hgb Hct MCV MCH RDW Plt Count Seg Neutrophils % Seg Neutrophils # PT 20.6 H INR 1.56 H ABG pH ABG pO2 ABG HCO3 ABG O2 Saturation ABG Base Excess ABG Hemoglobin Oxyhemoglobin Potassium Chloride Carbon Dioxide 16 L BUN 80 H Creatinine 5.5 H Glucose POC Glucose Calcium 8.0 L Magnesium Total Bilirubin Ammonia 73.0 H Troponin T Total Protein Albumin LDL Cholesterol Direct HDL Cholesterol Salicylates Acetaminophen 03/05/22 03/06/22 03/06/22 16:52 03:37 03:37 RBC 2.42 L Hgb 8.5 L 7.6 L Hct 25.6 L 23.1 L MCV MCH RDW 24.2 H Plt Count 74 L 64 L Seg Neutrophils % Seg Neutrophils # PT INR ABG pH ABG pO2 ABG HCO3 ABG O2 Saturation ABG Base Excess ABG Hemoglobin Oxyhemoglobin Potassium Chloride 108.9 H Carbon Dioxide 18 L BUN 81 H Creatinine 5.9 H Glucose 131 H POC Glucose Calcium 7.5 L Magnesium Total Bilirubin Ammonia Troponin T Total Protein Albumin LDL Cholesterol Direct HDL Cholesterol Salicylates Acetaminophen 03/06/22 03/06/22 03/06/22 04:55 11:50 14:30 RBC Hgb Hct MCV MCH RDW Plt Count Seg Neutrophils % Seg Neutrophils # PT 20.8 H INR 1.58 H ABG pH 7.272 L ABG pO2 103.3 H ABG HCO3 18.8 L ABG O2 Saturation ABG Base Excess -7.5 L ABG Hemoglobin 7.6 L Oxyhemoglobin Potassium Chloride Carbon Dioxide BUN Creatinine Glucose POC Glucose 140 H Calcium Magnesium Total Bilirubin Ammonia Troponin T Total Protein Albumin LDL Cholesterol Direct HDL Cholesterol Salicylates Acetaminophen 03/06/22 03/07/22 03/07/22 17:48 04:00 05:48 RBC 2.42 L Hgb 7.6 L Hct 22.7 L MCV MCH RDW 23.9 H Plt Count 44 L Seg Neutrophils % Seg Neutrophils # PT INR ABG pH ABG pO2 97.1 H ABG HCO3 ABG O2 Saturation ABG Base Excess ABG Hemoglobin 7.7 L Oxyhemoglobin Potassium Chloride Carbon Dioxide BUN Creatinine Glucose POC Glucose 126 H Calcium Magnesium Total Bilirubin Ammonia Troponin T Total Protein Albumin LDL Cholesterol Direct HDL Cholesterol Salicylates Acetaminophen 03/07/22 03/07/22 03/08/22 05:48 05:48 04:20 RBC Hgb Hct MCV MCH RDW Plt Count Seg Neutrophils % Seg Neutrophils # PT 22.9 H INR 1.78 H ABG pH ABG pO2 108.4 H ABG HCO3 ABG O2 Saturation ABG Base Excess -3.4 L ABG Hemoglobin 7.7 L Oxyhemoglobin Potassium 3.2 L Chloride Carbon Dioxide 21 L BUN 43 H Creatinine 4.3 H Glucose POC Glucose Calcium 7.8 L Magnesium 1.30 L Total Bilirubin 2.40 H Ammonia Troponin T Total Protein 5.3 L Albumin 2.1 L LDL Cholesterol Direct HDL Cholesterol Salicylates Acetaminophen 03/08/22 03/08/22 05:49 05:49 RBC 2.40 L Hgb 7.6 L Hct 22.5 L MCV MCH RDW 24.1 H Plt Count 54 L Seg Neutrophils % Seg Neutrophils # PT INR ABG pH ABG pO2 ABG HCO3 ABG O2 Saturation ABG Base Excess ABG Hemoglobin Oxyhemoglobin Potassium 3.4 L Chloride Carbon Dioxide 19 L BUN 46 H Creatinine 4.4 H Glucose POC Glucose Calcium 8.3 L Magnesium Total Bilirubin 2.20 H Ammonia Troponin T Total Protein 5.3 L Albumin 2.4 L LDL Cholesterol Direct HDL Cholesterol Salicylates Acetaminophen Chest x-ray: image reviewed Allied health notes reviewed: RT
--- NOTE | 2022-03-08 19:37 | Procedure Note ---
Date of procedure: 03/08/22 Pre-op diagnosis: Hypotension requiring vsoactive support Post-op diagnosis: same Procedure: Left IJ CVL placement under ultrasound guidance Consent obtained from the daughter over the phone. Patient prepared and draped in sterile fashion Time out, universal precautions Under USS guidance left IJ was cannulated. Seldinger technique, 16 F triple lumen catheter placed. Guide wire removed. No immediate complications. CXR ordered- reviewed at the bedside- LIJ in good position. No PTX Anesthesia: local Surgeon: DEEPIKA RODRIGUES Estimated blood loss: none Pathology: none Condition: critical Disposition: ICU
--- NOTE | 2022-03-08 19:51 | XRay Report ---
CHEST 1 VIEW INDICATION / CLINICAL INFORMATION: Dyspnea FINDINGS: SUPPORT DEVICES: Left-sided central venous line terminates at the SVC/right atrial junction. Other li catherine and tubes without significant change in position. HEART / MEDIASTINUM: The cardiomediastinal silhouette has not significantly changed in the interim. LUNGS / PLEURA: No pneumothorax. Patchy bibasilar densities persist. Signer Name: Regulo Theodore MD Signed: 03/08/2022 7:46 PM Workstation Name: [id number]
--- NOTE | 2022-03-08 20:02 | Progress Note ---
Assessment and Plan Assessment and plan: This is a 51-year-old female with alcoholic liver disease, HFpEF, recent PEA arrest at [facility] (01/2022), and CKD s/p HD from recent hospitalization, admitted for Acute blood loss anemia 2/2 Upper GIB Neuro: Hepatic encephalopathy, h/o EtOH abuse -Sedated with Precedex drip -RASS goal 0 to -1 -Reorientation as needed -Maintain sleep-wake cycle -As needed analgesia -CT head shows no acute focal parenchymal lesion -CIWA protocol -Lactulose p.o. daily Cardiac: Hypotension -Blood pressure monitoring per protocol -Vasopressor support with Levophed -MAP goal greater than 65 -Midodrine 3 times daily Respiratory: Acute hypoxic respiratory failure -CCM consulted, appreciate recommendations -Intubated on 03/04 with a 7.50 ETT at 22 the lips [facility] EGD -A.m. vent settings: Assist-control/PRVC rate 20, tidal volume 600, PEEP 6, FiO2 25% -See RT notes for titration -A.m. ABG and CXR noted -VAP bundle -SPO2 monitoring GI: Upper GI bleed, alcoholic liver cirrhosis with ascites -GI consulted, appreciate recommendations -Abdomen/pelvis CT without contrast shows cirrhosis with portal hypertension including splenomegaly and large volume ascites, 5.4 cm left adnexal dermoid -S/p EGD on 03/04 which showed blood in the oropharynx, clean base without ulcer at the GE junction without active bleeding, LA grade B esophagitis at the distal esophagus, retained food/fluid debris's in the gastric fundus and body, diffuse portal hypertensive gastropathy changes in the gastric body with no active bleed ing, large area of ulceration in the duodenal sweep without high risk stigmata or active bleeding. -S/p PPI and octreotide drip -S/p paracentesis on 03/06 -24 hours +789 mL -PPI -NTR consulted for tube feedings -BR: Lactulose -Started on rifaximin : Acute on chronic renal failure, hypokalemia hypomagnesemia -Nephrology consulted, appreciate recommendations -Monitor intake and output -Bicarb 3 times daily -Senior catheter discontinued 03/06 -Bladder scan nightly -Renally dose medications -Avoid nephrotoxic medications -Renal ultrasound shows left renal cyst -Trend BMP -kphos ID: Leukocytosis -Antibiotic therapy: Rocephin for 7 days -Rifaximin -f/u blood culture -Monitor WBC and temperature curve Endo: NAD -Avoid hypoglycemia -SSI -Accu-Cheks q. 6 Heme: Acute blood loss anemia -Presented with melena and hematemesis -s/p 3 units prbc and vit K -Trend CBC -Transfuse hemoglobin less than 7 -SCDs to BLE while in bed The high probability of a clinically significant, sudden or life threatening deterioration of the [multiple] system(s) required my full and direct attention, intervention and personal management. The aggregate critical care time was [60] minutes. This time is in addition to time spent performing reported procedures but includes the following: [x] Data Review and interpretation [x] Patient assessment and monitoring of vital signs [x] Documentation [x] Medication orders and management Disposition Plan: icu Total Time Spent with Patient (Minutes): 60 History Interval history: This is a 51-year-old female with EtOH cirrhosis,HFpEF, recent PEA arrest at [facility] (01/2022), CKD on HD who presented to emergency department via EMS on 03/04 with altered mental status. Upon arrival to the emergency department patient's blood pressure was 90/50, tachycardic and confused. Patient also had some blood in her mouth and melena. Work-up the emergency department revealed a H/H of 5.8/17.2, BUN/creatinine of 86/5.5, ammonia 141, tox screen essentially negative, CXR showed increased pulmonary vascularity with mild to moderate interstitial pulmonary edema with no pneumothorax and CT of the abdomen/pelvis showed cirrhosis with portal hypertension including splenomegaly and large volume ascites. Patient was started on a PPI and octreotide drip and given a blood transfusion. Patient was admitted to the hospital service with consults to GI, CCM and nephrology. Hospital course to date: 03/04: Patient had EGD. GI consult and follow-up/procedure appreciated. Patient has a clean base white ulcer at the GE junction without any active bleeding. No obvious associated esophageal varices found. Distal esophagitis. Diffuse portal hypertensive gastropathy changes in the gastric body. A large area of ulceration in the duodenal sweep without high risk stigmata or active bleeding found. 03/05: Patient remains intubated and sedated. On protonix and octreotide gtt per GI. No report of any bleeding overnight. GI recommendations noted. Worsen renal function this morning with anuria, on continuous IVF for now. Per Nephro no indication for HD at this time. Will switch IVF to D51/2NS, close monitor of BG level. Continue to monitor H&H, coags, and liver function. US paracentesis pending. D/W CCM plan to rest patient on the vent over the weekend, will attempt SAT/SBT in the am. 03-06 paracentesis completed - failed SBT; was agitated overnight (got ativan x 2) 03/08: Patient failed SBT x2, patient remained on Levophed. This afternoon she was started on hemodialysis and Levophed requirements increased. PICC line consulted for PICC placement which was okayed with nephrology. CCM placed CVL this evening. Hospitalist Physical - Constitutional Vitals: Temp Pulse Resp BP Pulse Ox 98.6 F 93 H 20 118/61 99 03/08/22 18:00 03/08/22 19:15 03/08/22 19:15 03/08/22 19:15 03/08/22 19:15 General appearance: Present: no acute distress, other (Intubated and Sedated) - EENT Eyes: Present: PERRL, EOM intact - Neck Neck: Present: normal ROM - Respiratory Respiratory effort: normal Respiratory: bilateral: diminished - Cardiovascular Rhythm: regular Heart Sounds: Present: S1 & S2. Absent: systolic murmur, diastolic murmur - Extremities Extremities: no ischemia, pulses intact, pulses symmetrical, No edema, normal temperature, normal color Peripheral Pulses: within normal limits - Abdominal General gastrointestinal: soft, non-tender, non-distended, normal bowel sounds - Integumentary Integumentary: Present: warm, dry - Psychiatric Psychiatric: cooperative - Neurologic Neurologic: CNII-XII intact, no focal deficits, moves all extremities - Allied Health Allied health notes reviewed: nursing, RT, social work HEART Score - HEART Score Troponin: Troponin T 0.057 ng/mL (0.00-0.029) H 03/03/22 19:44 Results - Labs CBC & Chem 7: 03/08/22 05:49 03/08/22 05:49 Labs: Laboratory Last Values WBC 6.7 K/mm3 (4.5-11.0) 03/08/22 05:49 RBC 2.40 M/mm3 (3.65-5.03) L 03/08/22 05:49 Hgb 7.6 gm/dl (10.1-14.3) L 03/08/22 05:49 Hct 22.5 % (30.3-42.9) L 03/08/22 05:49 MCV 94 fl (79-97) 03/08/22 05:49 MCH 32 pg (28-32) 03/08/22 05:49 MCHC 34 % (30-34) 03/08/22 05:49 RDW 24.1 % (13.2-15.2) H 03/08/22 05:49 Plt Count 54 K/mm3 (140-440) L 03/08/22 05:49 Lymph % (Auto) 22.0 % (13.4-35.0) 03/08/22 05:49 [place] % (Auto) 7.3 % (0.0-7.3) 03/08/22 05:49 Eos % (Auto) 1.8 % (0.0-4.3) 03/08/22 05:49 Baso % (Auto) 1.4 % (0.0-1.8) 03/08/22 05:49 Lymph # (Auto) 1.5 K/mm3 (1.2-5.4) 03/08/22 05:49 [place] # (Auto) 0.5 K/mm3 (0.0-0.8) 03/08/22 05:49 Eos # (Auto) 0.1 K/mm3 (0.0-0.4) 03/08/22 05:49 Baso # (Auto) 0.1 K/mm3 (0.0-0.1) 03/08/22 05:49 Seg Neutrophils % 67.5 % (40.0-70.0) 03/08/22 05:49 Seg Neutrophils # 4.5 K/mm3 (1.8-7.7) 03/08/22 05:49 PT 22.9 Sec. (12.2-14.9) H 03/07/22 05:48 INR 1.78 (0.87-1.13) H 03/07/22 05:48 ABG pH 7.431 pH Units (7.350-7.450) 03/08/22 04:20 ABG pCO2 31.3 mm Hg 03/08/22 04:20 ABG pO2 108.4 mm Hg (80.0-90.0) H 03/08/22 04:20 ABG HCO3 20.4 mmol/L (20.0-26.0) 03/08/22 04:20 ABG O2 Saturation 98.1 % (95.0-99.0) 03/08/22 04:20 ABG O2 Content 10.6 (0.0-44) 03/08/22 04:20 ABG Base Excess -3.4 mmol/L (-2.0-3.0) L 03/08/22 04:20 ABG Hemoglobin 7.7 gm/dl (12.0-16.0) L 03/08/22 04:20 ABG Carboxyhemoglobin 1.6 % (0.0-5.0) 03/08/22 04:20 ABG Methemoglobin 0.7 % (0.0-1.5) 03/08/22 04:20 Oxyhemoglobin 95.9 % (95.0-99.0) 03/08/22 04:20 FiO2 25 % 03/08/22 04:20 Sodium 141 mmol/L (137-145) 03/08/22 05:49 Potassium 3.4 mmol/L (3.6-5.0) L 03/08/22 05:49 Chloride 106.3 mmol/L (98-107) 03/08/22 05:49 Carbon Dioxide 19 mmol/L (22-30) L 03/08/22 05:49 Anion Gap 19 mmol/L 03/08/22 05:49 BUN 46 mg/dL (7-17) H 03/08/22 05:49 Creatinine 4.4 mg/dL (0.6-1.2) H 03/08/22 05:49 Estimated GFR 11 ml/min 03/08/22 05:49 BUN/Creatinine Ratio 10 % 03/08/22 05:49 Glucose 97 mg/dL (65-100) 03/08/22 05:49 POC Glucose 92 mg/dL (70-105) 03/07/22 00:02 Lactic Acid 1.50 mmol/L (0.7-2.0) 03/03/22 19:44 Calcium 8.3 mg/dL (8.4-10.2) L 03/08/22 05:49 Phosphorus 4.50 mg/dL (2.5-4.5) 03/07/22 05:48 Magnesium 1.70 mg/dL (1.7-2.3) 03/08/22 05:49 Total Bilirubin 2.20 mg/dL (0.1-1.2) H 03/08/22 05:49 AST 30 units/L (5-40) 03/08/22 05:49 ALT 10 units/L (7-56) 03/08/22 05:49 Alkaline Phosphatase 99 units/L (35-129) 03/08/22 05:49 Ammonia 37.0 umol/L (25-60) 03/07/22 05:48 Total Creatine Kinase 31 units/L (30-135) 03/03/22 19:44 Troponin T 0.057 ng/mL (0.00-0.029) H 03/03/22 19:44 Total Protein 5.3 g/dL (6.3-8.2) L 03/08/22 05:49 Albumin 2.4 g/dL (3.9-5) L 03/08/22 05:49 Albumin/Globulin Ratio 0.8 % 03/08/22 05:49 Triglycerides 71 mg/dL (2-149) 03/03/22 19:44 Cholesterol 75 mg/dL (50-199) 03/03/22 19:44 LDL Cholesterol Direct 35 mg/dL (50-130) L 03/03/22 19:44 HDL Cholesterol 21 mg/dL (40-59) L 03/03/22 19:44 Cholesterol/HDL Ratio 3.57 % 03/03/22 19:44 Urine Color [place] (Yellow) 03/04/22 Unknown Urine Turbidity Clear (Clear) 03/04/22 Unknown Urine pH 5.0 (5.0-7.0) 03/04/22 Unknown Ur Specific [place] 1.013 (1.003-1.030) 03/04/22 Unknown Urine Protein <15 mg/dl mg/dL (Negative) 03/04/22 Unknown Urine Glucose (UA) Neg mg/dL (Negative) 03/04/22 Unknown Urine Ketones Neg mg/dL (Negative) 03/04/22 Unknown Urine Blood Neg (Negative) 03/04/22 Unknown Urine Nitrite Neg (Negative) 03/04/22 Unknown Urine Bilirubin Neg (Negative) 03/04/22 Unknown Urine Urobilinogen < 2.0 mg/dL (<2.0) 03/04/22 Unknown Ur Leukocyte Esterase Sm (Negative) 03/04/22 Unknown Urine WBC (Auto) 1.0 /HPF (0.0-6.0) 03/04/22 Unknown Urine RBC (Auto) 1.0 /HPF (0.0-6.0) 03/04/22 Unknown U Epithel Cells (Auto) < 1.0 /HPF (0-13.0) 03/04/22 Unknown Fluid Type Paracentesis 03/06/22 17:22 Fluid Color Yellow 03/06/22 17:22 Fluid Appearance Clear 03/06/22 17:22 Fluid WBC 30 /mm3 03/06/22 17:22 Fluid RBC 791 /mm3 03/06/22 17:22 Fluid Seg Neutrophils 7.0 % 03/06/22 17:22 Fluid Lymphocytes 62.0 % 03/06/22 17:22 Fluid Reactive Lymphs 3.0 % 03/06/22 17:22 Fluid Monocytes 28.0 % 03/06/22 17:22 Fluid Eosinophils Not Reportable 03/06/22 17:22 Fluid Basophils Not Reportable 03/06/22 17:22 Salicylates < 0.3 mg/dL (2.8-20.0) L 03/03/22 19:44 Acetaminophen 5.0 ug/mL (10.0-30.0) L 03/03/22 19:44 Plasma/Serum Alcohol < 0.01 % (0-0.07) 03/03/22 19:44 Hepatitis A IgM Ab Non-reactive (NonReactive) 03/06/22 08:41 Hep Bs Antigen Non-reactive (Negative) 03/06/22 08:41 Hep B Core IgM Ab Non-reactive (NonReactive) 03/06/22 08:41 Hepatitis C Antibody Non-reactive (NonReactive) 03/06/22 08:41 Blood Type O POSITIVE 03/03/22 20:13 Antibody Screen Negative 03/03/22 20:13 Microbiology: Microbiology 03/03/22 19:44 Peripheral/Venous Blood Culture - Preliminary NO GROWTH AFTER 4 DAYS 03/03/22 19:44 Peripheral/Venous Blood Culture - Preliminary NO GROWTH AFTER 4 DAYS Senior/IV: Voiding Method Incontinent Active Medications - Current Medications Current Medications: Generic Name Dose Route Start Last Admin Trade Name Freq PRN Reason Stop Dose Admin Lipase/Protease/Amylase 1 each 03/07/22 14:23 Lipase 10,500/Protease 25,000/Amylase 43,750 (Units) Cap FEEDTUBE PRN PRN For Clogged Feeding Tube Fluoxetine HCl 20 mg 03/08/22 10:00 03/08/22 14:12 Fluoxetine 20 Mg Cap FEEDTUBE 20 mg QDAY FABIEN Administration Folic Acid 1 mg 03/08/22 10:00 03/08/22 14:13 Folic Acid 1 Mg Tab FEEDTUBE 1 mg QDAY FABIEN Administration Hydrophilic Ointment 1 applic 03/04/22 10:47 Lip Therapy Vaseline TP Q2HR PRN Dry Lips Ceftriaxone Sodium 1 gm in 50 mls @ 100 mls/hr 03/04/22 18:00 03/08/22 17:06 Rocephin/Ns 1 Gm/50 Ml IV 03/10/22 18:29 100 mls/hr Q24H FABIEN Administration Dexmedetomidine HCl 200 mcg/ 50 mls @ 3.655 mls/hr 03/07/22 10:00 03/08/22 09:51 Sodium Chloride IV 0.2 mcg/kg/hr TITRATE FABIEN 3.655 mls/hr Administration Protocol 0.2 MCG/KG/HR NORepinephrine/NS 8 MG-250 ML 8 mg in 250 mls @ 3.75 mls/hr 03/07/22 19:00 03/08/22 18:48 Norepinephrine/Ns 8 Mg-250 Ml (Double Conc) IV 8 mcg/min TITRATE FABIEN 15 mls/hr Titration Protocol 2 MCG/MIN Sodium Chloride 100 mls @ 999 mls/hr 03/08/22 16:30 Nacl 0.9% IV PETRA PRN Hypotension Lactulose 20 gm 03/08/22 10:00 03/08/22 14:12 Lactulose 20 Gm/30 Ml Oral Liqd FEEDTUBE 20 gm QDAY FABIEN Administration Midodrine 10 mg 03/08/22 15:00 03/08/22 17:06 Midodrine 10 Mg Tab PO 10 mg TID@0800,1200,1600 FABIEN Administration Ondansetron HCl 4 mg 03/04/22 00:02 Ondansetron 4 Mg/2 Ml Inj IV Q8H PRN Nausea And Vomiting Pantoprazole Sodium 40 mg 03/08/22 10:00 03/08/22 09:51 Pantoprazole 40 Mg Inj IV 40 mg BID FABIEN Administration Rifaximin 550 mg 03/08/22 10:00 03/08/22 14:12 Rifaximin 550 Mg Tab FEEDTUBE 550 mg BID FABIEN Administration Simple Syrup 15 ml 03/07/22 14:23 03/07/22 17:16 Simple Syrup 15 Ml FEEDTUBE 15 ml PRN PRN Administration Hypoglycemia Simple Syrup 30 ml 03/07/22 14:23 Simple Syrup 15 Ml FEEDTUBE PRN PRN Hypoglycemia Sodium Bicarbonate 1,300 mg 03/05/22 14:00 03/08/22 14:13 Sodium Bicarbonate 650 Mg Tab PO 1,300 mg TID FABIEN Administration Sodium Bicarbonate 325 mg 03/07/22 14:23 Sodium Bicarbonate 325 Mg Tab FEEDTUBE PRN PRN For Clogged Feeding Tube Sodium Chloride 10 ml 03/04/22 10:00 03/08/22 14:13 Sodium Chloride 0.9% 10 Ml Flush Syringe IV 10 ml BID FABIEN Administration Sodium Chloride 10 ml 03/04/22 00:02 Sodium Chloride 0.9% 10 Ml Flush Syringe IV PRN PRN LINE FLUSH Sodium Phosphate 250 mg 03/08/22 14:00 03/08/22 14:12 K-Phos Neutral 250 Mg Tab PO 03/09/22 10:01 250 mg QID FABIEN Administration Thiamine HCl 100 mg 03/08/22 10:00 03/08/22 14:12 Thiamine 100 Mg Tab FEEDTUBE 100 mg QDAY FABIEN Administration Nutrition/Malnutrition Assess - Dietary Evaluation Nutrition/Malnutrition Findings: Nutrition Notes Start: 03/04/22 10:49 Freq: Status: Active Protocol: Document 03/07/22 15:40 JOSELUIS (Rec: 03/07/22 16:27 JOSELUIS [email or web address]) Nutrition Notes Initial or Follow up Reassessment Current Diagnosis Acute Kidney Injury,CKD(stage I-IV),Respiratory Failure Other Pertinent Diagnosis Hepatic EtOH Disease/Cirrhosis /Ascites, s/p UGI Bleed, Metabolic Encephal.. Current Diet NPO (since 03/04), TF-Nepro w/ CARBSTEADY @ 35 ml/hr (from D 03/07). Labs/Tests 03/07: K 3.2, CO2 21, BUN 43, Crea 4.3, Ca 7.8, Mg 1.3. Pertinent Medications 03/07: Nutritionally unremarkable. Height 5 ft 4 in Weight 73.1 kg [place] Body Weight (kg) 54.54 BMI 27.6 Intake Prior to Admission Poor Weight change and time frame Pt states being unsure if loss body weight INSULATION [place]SE[place]. No body weight change reported in 3 days. Weight Status Overweight Subjective/Other Information RD consult for write/mange TF. Pt continues on NPO. Ptcontinues on Mechanical Ventilation, O2 saturation @ 100%, according to Physical Assessment History notes. Pt has missing teeth, according to Physical Assessment History notes. Pt presents generalized Non- Pitting Edema 2+, according to Physical Assessment History notes. Pt presents distended/ascitic abdomen, according to Physical Assessment History notes. Paracentesis completed on , well tolerated, according to Progress notes. Pt presents L-LE stasis ulcer as a sign of concern for skin risk, according to Physical Assessment History notes. Percent of energy/protein needs met: Pt continues on NPO. Prescribed TF-Nepro w/ CARBSTEADY @ 35 ml/hr provides for energy/protein needs (1, 500 Kcal/68 g) during LOS, 103 % Kcal; 77% AA. Burn Absent Trauma Absent GI Symptoms None Food Allergy No Skin Integrity/Comment L-LE stasis ulcer. 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 As Evidenced by Signs and Symptoms <75% Estimated Energy Requirement >7 days, Pt presents generalized Non- Pitting Edema 2+, according to Physical Assessment History notes. #1 Nutrition Diagnosis Altered GI function Diagnosis Progress(for reassessment Continues documentation) Is patient on ventilator? Yes Is Patient Ambulatory and/or Out of Bed No REE-([facility]-confined to bed) 1601.220 Kcal/Kg value to use for calculation 20 Approximate Energy Requirements Using 1462 kcal/Kg Calculation Used for Recommendations Kcal/kg Additional Notes Protein: >1.2 g/Kg ABW; >88 g/ day. Fluids: 1-1.5 L/day, or as per MD. Nutrition Intervention Nutrition Support: Start TF-Nepro w/CARBSTEADY @ 35 ml/hr. Flush: 150 ml water Q 4 hr, or as per MD. Kcal 1,500 Protein (gm) 68 Carbohydrates (gm) 134 Fat (gm) 80 Fluid (mL) 606 Fiber (gm) 11 % RDI: 103% Kcal; 77% AA. Goal #1 Provide at least 75% of energy /protein needs through Enteral Feeding during LOS. Follow-Up By: 03/09/22 Additional Comments Start monitoring TF tolerance and BM.
[2022-03-09] MEDS: SODIUM BICARBONATE 650 MG TAB PO SCH ×4 (00:09→21:55)
--- NOTE | 2022-03-09 03:54 | XRay Report ---
CHEST 1 VIEW 03/09/2022 2:42 AM INDICATION / CLINICAL INFORMATION: follow up respiratory failure. COMPARISON: Previous day. FINDINGS: SUPPORT DEVICES: Unchanged. HEART / MEDIASTINUM: No significant abnormality. LUNGS / PLEURA: Improving basilar aeration with resolution of atelectasis. No pneumothorax. ADDITIONAL FINDINGS: Moderate gastric distention. IMPRESSION: 1. No significant infiltrate. 2. Moderate gastric distention. Signer Name: Barrera Crawford MD Signed: 03/09/2022 3:50 AM Workstation Name: [id number]
[2022-03-09 05:04] LABS: ABG Base Excess 1.4 mmol/L (-2.0-3.0); ABG HCO3 24.7 mmol/L (20.0-26.0); ABG Methemoglobin 0.7 % (0.0-1.5); ABG PCO2 32.6 mm Hg; ABG PH 7.496 pH Units (7.350-7.450); ABG PO2 103.8 mm Hg (80.0-90.0)
[2022-03-09 05:55] LABS: Hematocrit 22.4 % (30.3-42.9); Hemoglobin 7.6 gm/dl (10.1-14.3); Mean Corpuscular HGB Conc 34 % (30-34); Mean Corpuscular Volume 94 fl (79-97); Red Blood Count 2.38 M/mm3 (3.65-5.03)
[2022-03-09 06:08] LABS: Platelet Count 36 K/mm3 (140-440); Red Cell Distribution Width 24.9 % (13.2-15.2)
[2022-03-09 06:10] LABS: Calcium 8.1 mg/dL (8.4-10.2)
[2022-03-09] MEDS: MIDODRINE 10 MG TAB PO SCH ×3 (08:27→16:34)
[2022-03-09] MEDS ORDERED: SODIUM CHLORIDE 0.9% 100 ML IV PRN (08:58)
--- NOTE | 2022-03-09 08:59 | Progress Note ---
Assessment and Plan Impression * Acute kidney injury vs ROSEMARY on CKD --HD initiated at [facility] in 01/2022 * Acute hypoxic respiratory failure, s/p intubation * Cirrhosis * Anemia secondary to acute blood loss/GI bleed --s/p EGD on 03/04/2022 with distal esophageal ulcer, duodenal ulcer, portal hypertensive gastropathy. No active bleeding. * Esophageal/duodenal ulcer * Metabolic acidosis * Hypotension, secondary to ABL * Thrombocytopenia * Acute encephalopathy Plan: * Patient is s/p HD yesterday. No acute need for HD today * Continue MWF schedule for now - UF as tolerated * Adjust K bath with dialysis * Transfuse for hemoglobin less than 7 * Maintain MAP>65 - pressors prn * Strict I/O * Dose medications for renal function * Avoid nephrotoxins * Diet per GI/primary team Subjective Date of service: 03/09/22 Principal diagnosis: Upper GI bleed Interval history: Patient remains intubated - ACVC Rate 20 TV 400 FiO2 25 PEEP 6 Currently on Levophed - 2mcg/min Objective - Vital Signs Vital signs: Vital Signs - 12hr 03/08/22 03/08/22 03/08/22 21:00 21:15 21:16 Temperature Pulse Rate 90 91 H 97 H Pulse Rate [ From Monitor] Respiratory 19 16 Rate Blood Pressure 118/59 117/58 117/58 O2 Sat by Pulse 100 100 98 Oximetry 03/08/22 03/08/22 03/08/22 21:30 21:45 22:00 Temperature Pulse Rate 95 H 91 H 92 H Pulse Rate [ From Monitor] Respiratory 20 12 10 L Rate Blood Pressure 123/66 128/63 122/59 O2 Sat by Pulse 100 100 100 Oximetry 03/08/22 03/08/22 03/08/22 22:02 22:15 22:30 Temperature Pulse Rate 94 H 89 Pulse Rate [ From Monitor] Respiratory 13 20 Rate Blood Pressure 122/59 112/56 109/55 O2 Sat by Pulse 100 97 100 Oximetry 03/08/22 03/08/22 03/08/22 22:45 23:00 23:15 Temperature Pulse Rate 88 87 87 Pulse Rate [ From Monitor] Respiratory 12 17 12 Rate Blood Pressure 107/56 109/58 114/62 O2 Sat by Pulse 100 100 100 Oximetry 03/08/22 03/08/22 03/09/22 23:30 23:45 00:00 Temperature 98.4 F Pulse Rate 90 85 90 Pulse Rate [ 85 From Monitor] Respiratory 13 21 12 Rate Blood Pressure 113/63 108/65 112/56 O2 Sat by Pulse 100 100 100 Oximetry 03/09/22 03/09/22 03/09/22 00:15 00:30 00:32 Temperature Pulse Rate 87 85 87 Pulse Rate [ From Monitor] Respiratory 13 15 Rate Blood Pressure 114/63 105/63 105/63 O2 Sat by Pulse 100 100 100 Oximetry 03/09/22 03/09/22 03/09/22 00:45 01:00 01:15 Temperature Pulse Rate 86 84 84 Pulse Rate [ From Monitor] Respiratory 19 20 20 Rate Blood Pressure 104/58 105/59 106/61 O2 Sat by Pulse 100 100 100 Oximetry 03/09/22 03/09/22 03/09/22 01:30 01:45 02:00 Temperature Pulse Rate 82 83 82 Pulse Rate [ From Monitor] Respiratory 18 20 20 Rate Blood Pressure 112/61 114/67 108/63 O2 Sat by Pulse 100 100 Oximetry 03/09/22 03/09/22 03/09/22 02:15 02:30 02:45 Temperature Pulse Rate 84 84 85 Pulse Rate [ From Monitor] Respiratory 20 20 21 Rate Blood Pressure 106/60 112/59 118/64 O2 Sat by Pulse 100 100 Oximetry 03/09/22 03/09/22 03/09/22 03:00 03:15 03:30 Temperature Pulse Rate 84 96 H 89 Pulse Rate [ From Monitor] Respiratory 20 13 15 Rate Blood Pressure 113/62 116/53 112/57 O2 Sat by Pulse 100 100 100 Oximetry 03/09/22 03/09/22 03/09/22 03:45 04:00 04:15 Temperature 99 F Pulse Rate 85 94 H 86 Pulse Rate [ 82 From Monitor] Respiratory 19 19 13 Rate Blood Pressure 115/60 114/68 117/60 O2 Sat by Pulse 100 100 100 Oximetry 03/09/22 03/09/22 03/09/22 04:21 04:30 04:45 Temperature Pulse Rate 89 88 88 Pulse Rate [ From Monitor] Respiratory 14 17 Rate Blood Pressure 122/67 122/67 119/61 O2 Sat by Pulse 98 100 Oximetry 03/09/22 03/09/22 03/09/22 05:00 05:15 05:30 Temperature Pulse Rate 89 83 83 Pulse Rate [ From Monitor] Respiratory 12 20 19 Rate Blood Pressure 104/54 106/55 103/56 O2 Sat by Pulse 99 100 Oximetry 03/09/22 03/09/22 03/09/22 05:45 06:00 06:15 Temperature Pulse Rate 76 80 74 Pulse Rate [ From Monitor] Respiratory 10 L 14 10 L Rate Blood Pressure 92/44 106/40 91/44 O2 Sat by Pulse 100 100 100 Oximetry 03/09/22 03/09/22 03/09/22 06:30 06:45 07:00 Temperature Pulse Rate 77 79 80 Pulse Rate [ From Monitor] Respiratory 18 19 12 Rate Blood Pressure 91/44 103/54 108/58 O2 Sat by Pulse 100 Oximetry 03/09/22 03/09/22 03/09/22 07:15 07:30 07:45 Temperature Pulse Rate 79 79 78 Pulse Rate [ From Monitor] Respiratory 15 14 14 Rate Blood Pressure 98/50 99/51 104/50 O2 Sat by Pulse 100 100 100 Oximetry 03/09/22 03/09/22 03/09/22 08:00 08:15 08:30 Temperature 98.2 F Pulse Rate 79 81 79 Pulse Rate [ 82 From Monitor] Respiratory 15 20 21 Rate Blood Pressure 96/47 89/55 88/53 O2 Sat by Pulse 100 100 100 Oximetry - General Appearance General appearance: well-developed, intubated EENT: ATNC, other (ETT in place) Respiratory: Present: Other (Coarse BS anteriorly) Cardiology: regular, S1S2 Gastrointestinal: no tenderness, no distended Musculoskeletal: other (tracre-1+ pitting edema) - Lab 03/09/22 05:15 03/09/22 05:15 Most recent lab results ABG pH 7.496 pH Units (7.350-7.450) H 03/09/22 04:25 ABG pCO2 32.6 mm Hg 03/09/22 04:25 ABG pO2 103.8 mm Hg (80.0-90.0) H 03/09/22 04:25 ABG HCO3 24.7 mmol/L (20.0-26.0) 03/09/22 04:25 ABG O2 Saturation 98.0 % (95.0-99.0) 03/09/22 04:25 Calcium 8.1 mg/dL (8.4-10.2) L 03/09/22 05:15 Phosphorus 2.70 mg/dL (2.5-4.5) 03/09/22 05:15 Magnesium 1.50 mg/dL (1.7-2.3) L 03/09/22 05:15 Medications & Allergies - Medications Allergies/Adverse Reactions: Allergies Penicillins Allergy (Verified 03/03/22 17:17) Rash Home Medications: Home Medications Medication Instructions Recorded Confirmed Last Taken Type FLUoxetine [PROzac] 20 mg PO QDAY #30 capsule 04/27/16 12/30/16 Unknown Rx Folic Acid 1 tab PO QDAY #30 tab 04/27/16 12/30/16 Unknown Rx Multivitamin Tab [Multiple Vitamin 1 each PO ONCE #30 tablet 04/27/16 12/30/16 Unknown Rx TAB (Theragran)] Thiamine [Vitamin B-1] 100 mg PO QDAY #30 tablet 04/27/16 12/30/16 Unknown Rx traZODone [Desyrel] 50 mg PO QHS #30 tab 04/27/16 12/30/16 Unknown Rx chlordiazePOXIDE [Librium] 25 mg PO Q6H #10 capsule 08/11/20 Unknown Rx Active Medications: Generic Name Dose Route Start Last Admin Trade Name Freq PRN Reason Stop Dose Admin Lipase/Protease/Amylase 1 each 03/07/22 14:23 Lipase 10,500/Protease 25,000/Amylase 43,750 (Units) Cap FEEDTUBE PRN PRN For Clogged Feeding Tube Fluoxetine HCl 20 mg 03/08/22 10:00 03/08/22 14:12 Fluoxetine 20 Mg Cap FEEDTUBE 20 mg QDAY FABIEN Administration Folic Acid 1 mg 03/08/22 10:00 03/08/22 14:13 Folic Acid 1 Mg Tab FEEDTUBE 1 mg QDAY FABIEN Administration Hydrophilic Ointment 1 applic 03/04/22 10:47 Lip Therapy Vaseline TP Q2HR PRN Dry Lips Ceftriaxone Sodium 1 gm in 50 mls @ 100 mls/hr 03/04/22 18:00 03/08/22 17:06 Rocephin/Ns 1 Gm/50 Ml IV 03/10/22 18:29 100 mls/hr Q24H FABIEN Administration Dexmedetomidine HCl 200 mcg/ 50 mls @ 3.655 mls/hr 03/07/22 10:00 03/09/22 06:05 Sodium Chloride IV 0 mcg/kg/hr TITRATE FABIEN 0 mls/hr Titration Protocol 0.2 MCG/KG/HR NORepinephrine/NS 8 MG-250 ML 8 mg in 250 mls @ 3.75 mls/hr 03/07/22 19:00 03/09/22 06:23 Norepinephrine/Ns 8 Mg-250 Ml (Double Conc) IV 2 mcg/min TITRATE FABIEN 3.75 mls/hr Titration Protocol 2 MCG/MIN Sodium Chloride 100 mls @ 999 mls/hr 03/08/22 16:30 Nacl 0.9% IV PETRA PRN Hypotension Lactulose 20 gm 03/08/22 10:00 03/08/22 14:12 Lactulose 20 Gm/30 Ml Oral Liqd FEEDTUBE 20 gm QDAY FABIEN Administration Lansoprazole 30 mg 03/09/22 22:00 Lansoprazole 30 Mg Solutab FEEDTUBE BID FABIEN Midodrine 10 mg 03/08/22 15:00 03/09/22 08:27 Midodrine 10 Mg Tab PO 10 mg TID@0800,1200,1600 FABIEN Administration Ondansetron HCl 4 mg 03/04/22 00:02 Ondansetron 4 Mg/2 Ml Inj IV Q8H PRN Nausea And Vomiting Pantoprazole Sodium 40 mg 03/08/22 10:00 03/08/22 21:56 Pantoprazole 40 Mg Inj IV 03/09/22 12:00 40 mg BID FABIEN Administration Rifaximin 550 mg 03/08/22 10:00 03/08/22 21:57 Rifaximin 550 Mg Tab FEEDTUBE 550 mg BID FABIEN Administration Simple Syrup 15 ml 03/07/22 14:23 03/07/22 17:16 Simple Syrup 15 Ml FEEDTUBE 15 ml PRN PRN Administration Hypoglycemia Simple Syrup 30 ml 03/07/22 14:23 Simple Syrup 15 Ml FEEDTUBE PRN PRN Hypoglycemia Sodium Bicarbonate 1,300 mg 03/05/22 14:00 03/09/22 08:27 Sodium Bicarbonate 650 Mg Tab PO 1,300 mg TID FABIEN Administration Sodium Bicarbonate 325 mg 03/07/22 14:23 Sodium Bicarbonate 325 Mg Tab FEEDTUBE PRN PRN For Clogged Feeding Tube Sodium Chloride 10 ml 03/04/22 10:00 03/08/22 21:56 Sodium Chloride 0.9% 10 Ml Flush Syringe IV 10 ml BID FABIEN Administration Sodium Chloride 10 ml 03/04/22 00:02 Sodium Chloride 0.9% 10 Ml Flush Syringe IV PRN PRN LINE FLUSH Thiamine HCl 100 mg 03/08/22 10:00 03/08/22 14:12 Thiamine 100 Mg Tab FEEDTUBE 100 mg QDAY FABIEN Administration
[2022-03-09] MEDS: FLUoxetine 20 MG CAP FEEDTUBE SCH (09:31)
[2022-03-09] MEDS: LACTULOSE 20 GM/30 ML ORAL LIQD FEEDTUBE SCH (09:31)
[2022-03-09] MEDS: THIAMINE 100 MG TAB FEEDTUBE SCH (09:31)
[2022-03-09] MEDS: PANTOPRAZOLE 40 MG INJ IV SCH (09:32)
[2022-03-09] MEDS: RIFAXIMIN 550 MG TAB FEEDTUBE SCH ×2 (09:32→21:00)
[2022-03-09] MEDS: FOLIC ACID 1 MG TAB FEEDTUBE SCH (09:32)
[2022-03-09] MEDS ORDERED: MAGNESIUM SULFATE 2 GM/50 ML BAG IV SCH (09:45)
[2022-03-09] MEDS ORDERED: POTASSIUM CHLORIDE 20 MEQ PACKET FEEDTUBE SCH (09:45)
--- NOTE | 2022-03-09 10:03 | Progress Note ---
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 Hyperammonemia Acute on Chronic Kidney Disease on HD - prn therapeutic paracentesis - continue HD/UF per nephrology for toxin and volume clearance - tolerating tube feeds - wean Levophed for target MAP > 65 mmHg - continue Xifaxan, thiamine and Folate supplementation - continue Daily SAT and SBT assessment as tolerated - continue accuchecks with glycemic control per SSI (While critically ill target blood glucose of 140-180 mg/dL; avoid hypoglycemia) - sedation prn for target RASS 0 to -1 - continue to wean supplemental oxygen for target O2 sat's > 90% acutely - VAP bundle addressed - continue lung protective strategies - continue bronchodilators with pulmonary hygiene per RT - wean per pulmonary driven protocols otherwise - avoid nephrotoxins, renally dose all medications - continue to avoid benzodiazepine's, reduce the possibility of delirium - AB's per ID rec's - prn analgesia per CPOT score - Maintenance of sleep-wake cycle, avoid delirium - continue enteral nutritional support at goal rate as tolerated - G.I. & VTE prophylaxis - PT/OT/ROM exercises - continue mobility protocols for pressure ulcer prophylaxis - Monitor hemodynamics closely - continue other care per attending / other consultants - discharge planning ongoing concurrently .... Re-evaluate in am & prn CONDITION: CRITICAL PROGNOSIS: GUARDED CODE STATUS: FULL CODE The high probability of a clinically significant, sudden or life-threatening deterioration of the [respiratory, cardiovascular, GI & neurologic] system(s) required my full and direct attention, intervention and personal management. The aggregate critical care time was [33] minutes without overlap. Time includes spent on; [x] Data Review and interpretation [x] Patient assessment and monitoring of vital signs [x] Documentation [x] Medication orders and management Subjective Date of service: 03/09/22 Principal diagnosis: AHRF on MVS; ABLA; UGIB; Thrombocytopenia; AMS; ETOH Abuse; ROSEMARY on HD Interval history: Patient is seen today for: Acute Hypoxemic Respiratory Failure on MVS; ABLA; UGI Bleed; Thrombocytopenia; AMS; ETOH Abuse; RSOEMARY on HD Seen and examined at bedside; 24hour events reviewed; nursing and respiratory care staff consulted; no adverse overnight events reported to me; resting in bed; remains on MVS; per RT failed SBT earlier with prolonged apnea's; remains on Levophed but @ 2 mics/min; denies acute chest or other pain; tolerating tube feeds; no emesis or overt aspiration today and no gross bleeding Objective Vital Signs - 12hr 03/08/22 03/08/22 03/08/22 22:15 22:30 22:45 Temperature Pulse Rate 89 88 Pulse Rate [ From Monitor] Respiratory 20 12 Rate Blood Pressure 112/56 109/55 107/56 O2 Sat by Pulse 97 100 100 Oximetry 03/08/22 03/08/22 03/08/22 23:00 23:15 23:30 Temperature Pulse Rate 87 87 90 Pulse Rate [ From Monitor] Respiratory 17 12 13 Rate Blood Pressure 109/58 114/62 113/63 O2 Sat by Pulse 100 100 100 Oximetry 03/08/22 03/09/22 03/09/22 23:45 00:00 00:15 Temperature 98.4 F Pulse Rate 85 90 87 Pulse Rate [ 85 From Monitor] Respiratory 21 12 13 Rate Blood Pressure 108/65 112/56 114/63 O2 Sat by Pulse 100 100 100 Oximetry 03/09/22 03/09/22 03/09/22 00:30 00:32 00:45 Temperature Pulse Rate 85 87 86 Pulse Rate [ From Monitor] Respiratory 15 19 Rate Blood Pressure 105/63 105/63 104/58 O2 Sat by Pulse 100 100 100 Oximetry 03/09/22 03/09/22 03/09/22 01:00 01:15 01:30 Temperature Pulse Rate 84 84 82 Pulse Rate [ From Monitor] Respiratory 20 20 18 Rate Blood Pressure 105/59 106/61 112/61 O2 Sat by Pulse 100 100 Oximetry 03/09/22 03/09/22 03/09/22 01:45 02:00 02:15 Temperature Pulse Rate 83 82 84 Pulse Rate [ From Monitor] Respiratory 20 20 20 Rate Blood Pressure 114/67 108/63 106/60 O2 Sat by Pulse 100 100 100 Oximetry 03/09/22 03/09/22 03/09/22 02:30 02:45 03:00 Temperature Pulse Rate 84 85 84 Pulse Rate [ From Monitor] Respiratory 20 21 20 Rate Blood Pressure 112/59 118/64 113/62 O2 Sat by Pulse 100 100 Oximetry 03/09/22 03/09/22 03/09/22 03:15 03:30 03:45 Temperature Pulse Rate 96 H 89 85 Pulse Rate [ From Monitor] Respiratory 13 15 19 Rate Blood Pressure 116/53 112/57 115/60 O2 Sat by Pulse 100 100 100 Oximetry 03/09/22 03/09/22 03/09/22 04:00 04:15 04:21 Temperature 99 F Pulse Rate 94 H 86 89 Pulse Rate [ 82 From Monitor] Respiratory 19 13 Rate Blood Pressure 114/68 117/60 122/67 O2 Sat by Pulse 100 100 98 Oximetry 03/09/22 03/09/22 03/09/22 04:30 04:45 05:00 Temperature Pulse Rate 88 88 89 Pulse Rate [ From Monitor] Respiratory 14 17 12 Rate Blood Pressure 122/67 119/61 104/54 O2 Sat by Pulse 100 99 Oximetry 03/09/22 03/09/22 03/09/22 05:15 05:30 05:45 Temperature Pulse Rate 83 83 76 Pulse Rate [ From Monitor] Respiratory 20 19 10 L Rate Blood Pressure 106/55 103/56 92/44 O2 Sat by Pulse 100 100 Oximetry 03/09/22 03/09/22 03/09/22 06:00 06:15 06:30 Temperature Pulse Rate 80 74 77 Pulse Rate [ From Monitor] Respiratory 14 10 L 18 Rate Blood Pressure 106/40 91/44 91/44 O2 Sat by Pulse 100 100 Oximetry 03/09/22 03/09/22 03/09/22 06:45 07:00 07:15 Temperature Pulse Rate 79 80 79 Pulse Rate [ From Monitor] Respiratory 19 12 15 Rate Blood Pressure 103/54 108/58 98/50 O2 Sat by Pulse 100 100 Oximetry 03/09/22 03/09/22 03/09/22 07:30 07:45 08:00 Temperature 98.2 F Pulse Rate 79 78 79 Pulse Rate [ 82 From Monitor] Respiratory 14 14 15 Rate Blood Pressure 99/51 104/50 96/47 O2 Sat by Pulse 100 100 100 Oximetry 03/09/22 03/09/22 03/09/22 08:15 08:30 08:36 Temperature Pulse Rate 81 79 78 Pulse Rate [ From Monitor] Respiratory 20 21 Rate Blood Pressure 89/55 88/53 88/53 O2 Sat by Pulse 100 100 100 Oximetry 03/09/22 03/09/22 08:45 09:00 Temperature Pulse Rate 82 83 Pulse Rate [ From Monitor] Respiratory 11 L 9 L Rate Blood Pressure 99/51 105/50 O2 Sat by Pulse 100 Oximetry Constitutional: no acute distress, other (middle aged and chronically ill looking female with normal respiratory effort at rest) Eyes: icteric ENT: oropharynx moist, other (ETT 24 cm RENETTA) Neck: supple, no lymphadenopathy, no JVD, other (RIJ Vascath) Effort: mildly labored Ascultation: Bilateral: diminished breath sounds Percussion: Bilateral: not dull Cardiovascular: regular rate and rhythm, other Gastrointestinal: hypoactive bowel sounds, soft, non-tender, other (distended) Integumentary: normal Extremities: no cyanosis, pink and warm, pulses normal, edema Neurologic: normal mental status, non-focal exam (grossly), pupils equal and round, CN II-XII normal Psychiatric: mood appropriate, affect normal CBC and BMP: 03/10/22 04:32 03/10/22 04:32 ABG, PT/INR, D-dimer: ABG ABG pH 7.496 pH Units (7.350-7.450) H 03/09/22 04:25 ABG pCO2 32.6 mm Hg 03/09/22 04:25 ABG pO2 103.8 mm Hg (80.0-90.0) H 03/09/22 04:25 ABG O2 Saturation 98.0 % (95.0-99.0) 03/09/22 04:25 PT/INR, D-dimer PT 22.9 Sec. (12.2-14.9) H 03/07/22 05:48 INR 1.78 (0.87-1.13) H 03/07/22 05:48 Abnormal lab findings: Abnormal Labs 03/03/22 03/03/22 03/03/22 19:44 19:44 19:44 RBC Hgb Hct MCV MCH RDW Plt Count Seg Neutrophils % Seg Neutrophils # PT 23.2 H INR 1.80 H ABG pH ABG pO2 ABG HCO3 ABG O2 Saturation ABG Base Excess ABG Hemoglobin Oxyhemoglobin Potassium Chloride Carbon Dioxide 20 L BUN 86 H Creatinine 5.5 H Glucose POC Glucose Calcium 8.0 L Magnesium Total Bilirubin 3.60 H Ammonia 141.0 H Troponin T 0.057 H Total Protein 6.1 L Albumin 2.4 L LDL Cholesterol Direct 35 L HDL Cholesterol 21 L Salicylates Acetaminophen 03/03/22 03/03/22 03/03/22 19:44 19:44 21:30 RBC Hgb Hct MCV MCH RDW Plt Count Seg Neutrophils % Seg Neutrophils # PT INR ABG pH ABG pO2 ABG HCO3 ABG O2 Saturation ABG Base Excess -3.7 L ABG Hemoglobin 5.0 L Oxyhemoglobin 94.8 L Potassium Chloride Carbon Dioxide BUN Creatinine Glucose POC Glucose Calcium Magnesium Total Bilirubin Ammonia Troponin T Total Protein Albumin LDL Cholesterol Direct HDL Cholesterol Salicylates < 0.3 L Acetaminophen 5.0 L 03/03/22 03/04/22 03/04/22 21:35 11:03 11:03 RBC 1.69 L 3.00 L Hgb 5.8 L* 9.4 L D Hct 17.2 L* 28.3 L D MCV 102 H MCH 34 H RDW 19.8 H 23.5 H Plt Count 75 L 72 L Seg Neutrophils % 71.2 H Seg Neutrophils # PT 20.7 H INR 1.57 H ABG pH ABG pO2 ABG HCO3 ABG O2 Saturation ABG Base Excess ABG Hemoglobin Oxyhemoglobin Potassium Chloride Carbon Dioxide BUN Creatinine Glucose POC Glucose Calcium Magnesium Total Bilirubin Ammonia Troponin T Total Protein Albumin LDL Cholesterol Direct HDL Cholesterol Salicylates Acetaminophen 03/04/22 03/04/22 03/04/22 11:03 12:00 15:30 RBC Hgb 9.3 L Hct 28.4 L MCV MCH RDW Plt Count Seg Neutrophils % Seg Neutrophils # PT INR ABG pH 7.301 L ABG pO2 273.8 H ABG HCO3 17.6 L ABG O2 Saturation 99.4 H ABG Base Excess -8.1 L ABG Hemoglobin 9.2 L Oxyhemoglobin Potassium Chloride Carbon Dioxide 18 L BUN 79 H Creatinine 5.0 H Glucose POC Glucose Calcium 8.3 L Magnesium Total Bilirubin Ammonia Troponin T Total Protein Albumin LDL Cholesterol Direct HDL Cholesterol Salicylates Acetaminophen 03/05/22 03/05/22 03/05/22 00:27 04:00 06:20 RBC 2.80 L Hgb 8.9 L 8.5 L Hct 27.2 L 26.7 L MCV MCH RDW 24.1 H Plt Count 93 L 94 L Seg Neutrophils % 78.7 H Seg Neutrophils # 8.6 H PT INR ABG pH 7.290 L ABG pO2 145.8 H ABG HCO3 17.9 L ABG O2 Saturation ABG Base Excess -8.0 L ABG Hemoglobin 8.8 L Oxyhemoglobin Potassium Chloride Carbon Dioxide BUN Creatinine Glucose POC Glucose Calcium Magnesium Total Bilirubin Ammonia Troponin T Total Protein Albumin LDL Cholesterol Direct HDL Cholesterol Salicylates Acetaminophen 03/05/22 03/05/22 03/05/22 06:20 06:20 06:20 RBC Hgb Hct MCV MCH RDW Plt Count Seg Neutrophils % Seg Neutrophils # PT 20.6 H INR 1.56 H ABG pH ABG pO2 ABG HCO3 ABG O2 Saturation ABG Base Excess ABG Hemoglobin Oxyhemoglobin Potassium Chloride Carbon Dioxide 16 L BUN 80 H Creatinine 5.5 H Glucose POC Glucose Calcium 8.0 L Magnesium Total Bilirubin Ammonia 73.0 H Troponin T Total Protein Albumin LDL Cholesterol Direct HDL Cholesterol Salicylates Acetaminophen 03/05/22 03/06/22 03/06/22 16:52 03:37 03:37 RBC 2.42 L Hgb 8.5 L 7.6 L Hct 25.6 L 23.1 L MCV MCH RDW 24.2 H Plt Count 74 L 64 L Seg Neutrophils % Seg Neutrophils # PT INR ABG pH ABG pO2 ABG HCO3 ABG O2 Saturation ABG Base Excess ABG Hemoglobin Oxyhemoglobin Potassium Chloride 108.9 H Carbon Dioxide 18 L BUN 81 H Creatinine 5.9 H Glucose 131 H POC Glucose Calcium 7.5 L Magnesium Total Bilirubin Ammonia Troponin T Total Protein Albumin LDL Cholesterol Direct HDL Cholesterol Salicylates Acetaminophen 03/06/22 03/06/22 03/06/22 04:55 11:50 14:30 RBC Hgb Hct MCV MCH RDW Plt Count Seg Neutrophils % Seg Neutrophils # PT 20.8 H INR 1.58 H ABG pH 7.272 L ABG pO2 103.3 H ABG HCO3 18.8 L ABG O2 Saturation ABG Base Excess -7.5 L ABG Hemoglobin 7.6 L Oxyhemoglobin Potassium Chloride Carbon Dioxide BUN Creatinine Glucose POC Glucose 140 H Calcium Magnesium Total Bilirubin Ammonia Troponin T Total Protein Albumin LDL Cholesterol Direct HDL Cholesterol Salicylates Acetaminophen 03/06/22 03/07/22 03/07/22 17:48 04:00 05:48 RBC 2.42 L Hgb 7.6 L Hct 22.7 L MCV MCH RDW 23.9 H Plt Count 44 L Seg Neutrophils % Seg Neutrophils # PT INR ABG pH ABG pO2 97.1 H ABG HCO3 ABG O2 Saturation ABG Base Excess ABG Hemoglobin 7.7 L Oxyhemoglobin Potassium Chloride Carbon Dioxide BUN Creatinine Glucose POC Glucose 126 H Calcium Magnesium Total Bilirubin Ammonia Troponin T Total Protein Albumin LDL Cholesterol Direct HDL Cholesterol Salicylates Acetaminophen 03/07/22 03/07/22 03/08/22 05:48 05:48 04:20 RBC Hgb Hct MCV MCH RDW Plt Count Seg Neutrophils % Seg Neutrophils # PT 22.9 H INR 1.78 H ABG pH ABG pO2 108.4 H ABG HCO3 ABG O2 Saturation ABG Base Excess -3.4 L ABG Hemoglobin 7.7 L Oxyhemoglobin Potassium 3.2 L Chloride Carbon Dioxide 21 L BUN 43 H Creatinine 4.3 H Glucose POC Glucose Calcium 7.8 L Magnesium 1.30 L Total Bilirubin 2.40 H Ammonia Troponin T Total Protein 5.3 L Albumin 2.1 L LDL Cholesterol Direct HDL Cholesterol Salicylates Acetaminophen 03/08/22 03/08/22 03/08/22 05:49 05:49 23:54 RBC 2.40 L Hgb 7.6 L Hct 22.5 L MCV MCH RDW 24.1 H Plt Count 54 L Seg Neutrophils % Seg Neutrophils # PT INR ABG pH ABG pO2 ABG HCO3 ABG O2 Saturation ABG Base Excess ABG Hemoglobin Oxyhemoglobin Potassium 3.4 L Chloride Carbon Dioxide 19 L BUN 46 H Creatinine 4.4 H Glucose POC Glucose 125 H Calcium 8.3 L Magnesium Total Bilirubin 2.20 H Ammonia Troponin T Total Protein 5.3 L Albumin 2.4 L LDL Cholesterol Direct HDL Cholesterol Salicylates Acetaminophen 03/09/22 03/09/22 03/09/22 04:25 05:15 05:15 RBC 2.38 L Hgb 7.6 L Hct 22.4 L MCV MCH RDW 24.9 H Plt Count 36 L Seg Neutrophils % Seg Neutrophils # PT INR ABG pH 7.496 H ABG pO2 103.8 H ABG HCO3 ABG O2 Saturation ABG Base Excess ABG Hemoglobin 7.4 L Oxyhemoglobin Potassium 3.1 L Chloride Carbon Dioxide BUN 24 H Creatinine 2.9 H Glucose 136 H POC Glucose Calcium 8.1 L Magnesium 1.50 L Total Bilirubin Ammonia Troponin T Total Protein Albumin LDL Cholesterol Direct HDL Cholesterol Salicylates Acetaminophen Chest x-ray: image reviewed (no acute process) Allied health notes reviewed: nursing
--- NOTE | 2022-03-09 15:31 | Progress Note ---
Assessment and Plan Assessment and plan: This is a 51-year-old female with alcoholic liver disease, HFpEF, recent PEA arrest at [facility] (01/2022), and CKD s/p HD from recent hospitalization, admitted for Acute blood loss anemia 2/2 Upper GIB Neuro: Hepatic encephalopathy, h/o EtOH abuse -s/p Precedex drip -RASS goal 0 to -1 -Reorientation as needed -Maintain sleep-wake cycle -As needed analgesia -CT head shows no acute focal parenchymal lesion -CIWA protocol -Lactulose p.o. daily Cardiac: Hypotension -Blood pressure monitoring per protocol -Vasopressor support with Levophed -MAP goal greater than 65 -Midodrine 10 mg TID Respiratory: Acute hypoxic respiratory failure -CCM consulted, appreciate recommendations -Intubated on 03/04 with a 7.50 ETT at 22 the lips fpr EGD -A.m. vent settings: Assist-control/PRVC rate 20, tidal volume 600, PEEP 6, FiO2 25% -See RT notes for titration -A.m. ABG and CXR noted -VAP bundle -SPO2 monitoring GI: Upper GI bleed, alcoholic liver cirrhosis with ascites -GI consulted, appreciate recommendations -Abdomen/pelvis CT without contrast shows cirrhosis with portal hypertension including splenomegaly and large volume ascites, 5.4 cm left adnexal dermoid -S/p EGD on 03/04 which showed blood in the oropharynx, clean base without ulcer at the GE junction without active bleeding, LA grade B esophagitis at the distal esophagus, retained food/fluid debris's in the gastric fundus and body, diffuse portal hypertensive gastropathy changes in the gastric body with no active bleeding, large area of ulceration in the duodenal sweep without high risk stigmata or active bleeding. -S/p PPI and octreotide drip -S/p paracentesis on 03/06 with removal of 7 Liters -24 hours +2100 mL -PPI -NTR consulted for tube feedings -BR: Lactulose -Started on rifaximin : Acute on chronic renal failure, hypokalemia hypomagnesemia -Nephrology consulted, appreciate recommendations -Monitor intake and output -HD per nephrology (MWF) -03/08 HD 1L removed -Bicarb 3 times daily -Senior catheter discontinued 03/06 -Bladder scan nightly -Renally dose medications -Avoid nephrotoxic medications -Renal ultrasound shows left renal cyst -Replete K and Mag -Trend BMP ID: NAD -Antibiotic therapy: Rocephin for 7 days for possible SBP -Rifaximin -f/u blood culture -Monitor WBC and temperature curve Endo: NAD -Avoid hypoglycemia -SSI -Accu-Cheks q. 6 Heme: Acute blood loss anemia -Presented with melena and hematemesis -s/p 3 units prbc and vit K -Trend CBC -Transfuse hemoglobin less than 7 -SCDs to BLE while in bed The high probability of a clinically significant, sudden or life threatening deterioration of the [multiple] system(s) required my full and direct attention, intervention and personal management. The aggregate critical care time was [60] minutes. This time is in addition to time spent performing reported procedures but includes the following: [x] Data Review and interpretation [x] Patient assessment and monitoring of vital signs [x] Documentation [x] Medication orders and management Disposition Plan: icu Total Time Spent with Patient (Minutes): 60 History Interval history: This is a 51-year-old female with EtOH cirrhosis,HFpEF, recent PEA arrest at [facility] (01/2022), CKD on HD who presented to emergency department via EMS on 03/04 with altered mental status. Upon arrival to the emergency department patient's blood pressure was 90/50, tachycardic and confused. Patient also had some blood in her mouth and melena. Work-up the emergency department revealed a H/H of 5.8/17.2, BUN/creatinine of 86/5.5, ammonia 141, tox screen essentially negative, CXR showed increased pulmonary vascularity with mild to moderate interstitial pulmonary edema with no pneumothorax and CT of the abdomen/pelvis showed cirrhosis with portal hypertension including splenomegaly and large volum e ascites. Patient was started on a PPI and octreotide drip and given a blood transfusion. Patient was admitted to the hospital service with consults to GI, CCM and nephrology. Hospital course to date: 03/04: Patient had EGD. GI consult and follow-up/procedure appreciated. Patient has a clean base white ulcer at the GE junction without any active bleeding. No obvious associated esophageal varices found. Distal esophagitis. Diffuse portal hypertensive gastropathy changes in the gastric body. A large area of ulceration in the duodenal sweep without high risk stigmata or active bleeding found. 03/05: Patient remains intubated and sedated. On protonix and octreotide gtt per GI. No report of any bleeding overnight. GI recommendations noted. Worsen renal function this morning with anuria, on continuous IVF for now. Per Nephro no indication for HD at this time. Will switch IVF to D51/2NS, close monitor of BG level. Continue to monitor H&H, coags, and liver function. US paracentesis pending. D/W CCM plan to rest patient on the vent over the weekend, will attempt SAT/SBT in the am. 03-06 paracentesis completed 03-07 failed SBT; was agitated overnight (got ativan x 2) 03/08: Patient failed SBT x2, patient remained on Levophed. This afternoon she was started on hemodialysis and Levophed requirements increased. PICC line consulted for PICC placement which was okayed with nephrology. CCM placed CVL this evening. 03/09: Patient failed SBT again this morning however she does follow commands intermittently. No acute events reported overnight. Levophed remains at 2. Hospitalist Physical - Constitutional Vitals: Temp Pulse Resp BP Pulse Ox 98.3 F 84 19 97/46 99 03/09/22 12:00 03/09/22 15:15 03/09/22 15:15 03/09/22 15:15 03/09/22 15:15 General appearance: Present: no acute distress, other (Intubated and Sedated) - EENT Eyes: Present: PERRL, EOM intact ENT: hearing intact, clear oral mucosa - Neck Neck: Present: normal ROM - Respiratory Respiratory effort: normal Respiratory: bilateral: CTA, diminished - Cardiovascular Rhythm: regular Heart Sounds: Present: S1 & S2. Absent: systolic murmur, diastolic murmur - Extremities Extremities: no ischemia, pulses intact, pulses symmetrical, No edema, normal temperature, normal color Peripheral Pulses: within normal limits - Abdominal General gastrointestinal: soft, non-tender, non-distended, normal bowel sounds - Integumentary Integumentary: Present: warm, dry - Psychiatric Psychiatric: cooperative - Neurologic Neurologic: CNII-XII intact, no focal deficits, moves all extremities - Allied Health Allied health notes reviewed: nursing, RT, social work HEART Score - HEART Score Troponin: Troponin T 0.057 ng/mL (0.00-0.029) H 03/03/22 19:44 Results - Labs CBC & Chem 7: 03/09/22 05:15 03/09/22 05:15 Labs: Laboratory Last Values WBC 6.5 K/mm3 (4.5-11.0) 03/09/22 05:15 RBC 2.38 M/mm3 (3.65-5.03) L 03/09/22 05:15 Hgb 7.6 gm/dl (10.1-14.3) L 03/09/22 05:15 Hct 22.4 % (30.3-42.9) L 03/09/22 05:15 MCV 94 fl (79-97) 03/09/22 05:15 MCH 32 pg (28-32) 03/09/22 05:15 MCHC 34 % (30-34) 03/09/22 05:15 RDW 24.9 % (13.2-15.2) H 03/09/22 05:15 Plt Count 36 K/mm3 (140-440) L 03/09/22 05:15 Lymph % (Auto) 22.0 % (13.4-35.0) 03/08/22 05:49 [place] % (Auto) 7.3 % (0.0-7.3) 03/08/22 05:49 Eos % (Auto) 1.8 % (0.0-4.3) 03/08/22 05:49 Baso % (Auto) 1.4 % (0.0-1.8) 03/08/22 05:49 Lymph # (Auto) 1.5 K/mm3 (1.2-5.4) 03/08/22 05:49 [place] # (Auto) 0.5 K/mm3 (0.0-0.8) 03/08/22 05:49 Eos # (Auto) 0.1 K/mm3 (0.0-0.4) 03/08/22 05:49 Baso # (Auto) 0.1 K/mm3 (0.0-0.1) 03/08/22 05:49 Seg Neutrophils % 67.5 % (40.0-70.0) 03/08/22 05:49 Seg Neutrophils # 4.5 K/mm3 (1.8-7.7) 03/08/22 05:49 PT 22.9 Sec. (12.2-14.9) H 03/07/22 05:48 INR 1.78 (0.87-1.13) H 03/07/22 05:48 ABG pH 7.496 pH Units (7.350-7.450) H 03/09/22 04:25 ABG pCO2 32.6 mm Hg 03/09/22 04:25 ABG pO2 103.8 mm Hg (80.0-90.0) H 03/09/22 04:25 ABG HCO3 24.7 mmol/L (20.0-26.0) 03/09/22 04:25 ABG O2 Saturation 98.0 % (95.0-99.0) 03/09/22 04:25 ABG O2 Content 10.1 (0.0-44) 03/09/22 04:25 ABG Base Excess 1.4 mmol/L (-2.0-3.0) 03/09/22 04:25 ABG Hemoglobin 7.4 gm/dl (12.0-16.0) L 03/09/22 04:25 ABG Carboxyhemoglobin 1.7 % (0.0-5.0) 03/09/22 04:25 ABG Methemoglobin 0.7 % (0.0-1.5) 03/09/22 04:25 Oxyhemoglobin 95.8 % (95.0-99.0) 03/09/22 04:25 FiO2 25 % 03/09/22 04:25 Sodium 140 mmol/L (137-145) 03/09/22 05:15 Potassium 3.1 mmol/L (3.6-5.0) L 03/09/22 05:15 Chloride 105.7 mmol/L (98-107) 03/09/22 05:15 Carbon Dioxide 25 mmol/L (22-30) 03/09/22 05:15 Anion Gap 12 mmol/L 03/09/22 05:15 BUN 24 mg/dL (7-17) H 03/09/22 05:15 Creatinine 2.9 mg/dL (0.6-1.2) H 03/09/22 05:15 Estimated GFR 17 ml/min 03/09/22 05:15 BUN/Creatinine Ratio 8 % 03/09/22 05:15 Glucose 136 mg/dL (65-100) H 03/09/22 05:15 POC Glucose 125 mg/dL (70-105) H 03/08/22 23:54 Lactic Acid 1.50 mmol/L (0.7-2.0) 03/03/22 19:44 Calcium 8.1 mg/dL (8.4-10.2) L 03/09/22 05:15 Phosphorus 2.70 mg/dL (2.5-4.5) 03/09/22 05:15 Magnesium 1.50 mg/dL (1.7-2.3) L 03/09/22 05:15 Total Bilirubin 2.20 mg/dL (0.1-1.2) H 03/08/22 05:49 AST 30 units/L (5-40) 03/08/22 05:49 ALT 10 units/L (7-56) 03/08/22 05:49 Alkaline Phosphatase 99 units/L (35-129) 03/08/22 05:49 Ammonia 37.0 umol/L (25-60) 03/07/22 05:48 Total Creatine Kinase 31 units/L (30-135) 03/03/22 19:44 Troponin T 0.057 ng/mL (0.00-0.029) H 03/03/22 19:44 Total Protein 5.3 g/dL (6.3-8.2) L 03/08/22 05:49 Albumin 2.4 g/dL (3.9-5) L 03/08/22 05:49 Albumin/Globulin Ratio 0.8 % 03/08/22 05:49 Triglycerides 71 mg/dL (2-149) 03/03/22 19:44 Cholesterol 75 mg/dL (50-199) 03/03/22 19:44 LDL Cholesterol Direct 35 mg/dL (50-130) L 03/03/22 19:44 HDL Cholesterol 21 mg/dL (40-59) L 03/03/22 19:44 Cholesterol/HDL Ratio 3.57 % 03/03/22 19:44 Urine Color [place] (Yellow) 03/04/22 Unknown Urine Turbidity Clear (Clear) 03/04/22 Unknown Urine pH 5.0 (5.0-7.0) 03/04/22 Unknown Ur Specific [place] 1.013 (1.003-1.030) 03/04/22 Unknown Urine Protein <15 mg/dl mg/dL (Negative) 03/04/22 Unknown Urine Glucose (UA) Neg mg/dL (Negative) 03/04/22 Unknown Urine Ketones Neg mg/dL (Negative) 03/04/22 Unknown Urine Blood Neg (Negative) 03/04/22 Unknown Urine Nitrite Neg (Negative) 03/04/22 Unknown Urine Bilirubin Neg (Negative) 03/04/22 Unknown Urine Urobilinogen < 2.0 mg/dL (<2.0) 03/04/22 Unknown Ur Leukocyte Esterase Sm (Negative) 03/04/22 Unknown Urine WBC (Auto) 1.0 /HPF (0.0-6.0) 03/04/22 Unknown Urine RBC (Auto) 1.0 /HPF (0.0-6.0) 03/04/22 Unknown U Epithel Cells (Auto) < 1.0 /HPF (0-13.0) 03/04/22 Unknown Fluid Type Paracentesis 03/06/22 17:22 Fluid Color Yellow 03/06/22 17:22 Fluid Appearance Clear 03/06/22 17:22 Fluid WBC 30 /mm3 03/06/22 17:22 Fluid RBC 791 /mm3 03/06/22 17:22 Fluid Seg Neutrophils 7.0 % 03/06/22 17:22 Fluid Lymphocytes 62.0 % 03/06/22 17:22 Fluid Reactive Lymphs 3.0 % 03/06/22 17:22 Fluid Monocytes 28.0 % 03/06/22 17:22 Fluid Eosinophils Not Reportable 03/06/22 17:22 Fluid Basophils Not Reportable 03/06/22 17:22 Salicylates < 0.3 mg/dL (2.8-20.0) L 03/03/22 19:44 Acetaminophen 5.0 ug/mL (10.0-30.0) L 03/03/22 19:44 Plasma/Serum Alcohol < 0.01 % (0-0.07) 03/03/22 19:44 Hepatitis A IgM Ab Non-reactive (NonReactive) 03/06/22 08:41 Hep Bs Antigen Non-reactive (Negative) 03/06/22 08:41 Hep B Core IgM Ab Non-reactive (NonReactive) 03/06/22 08:41 Hepatitis C Antibody Non-reactive (NonReactive) 03/06/22 08:41 Blood Type O POSITIVE 03/03/22 20:13 Antibody Screen Negative 03/03/22 20:13 Microbiology: Microbiology 03/03/22 19:44 Peripheral/Venous Blood Culture - Final NO GROWTH AFTER 5 DAYS 03/03/22 19:44 Peripheral/Venous Blood Culture - Final NO GROWTH AFTER 5 DAYS Senior/IV: Voiding Method Incontinent Active Medications - Current Medications Current Medications: Generic Name Dose Route Start Last Admin Trade Name Freq PRN Reason Stop Dose Admin Lipase/Protease/Amylase 1 each 03/07/22 14:23 Lipase 10,500/Protease 25,000/Amylase 43,750 (Units) Cap FEEDTUBE PRN PRN For Clogged Feeding Tube Fluoxetine HCl 20 mg 03/08/22 10:00 03/09/22 09:31 Fluoxetine 20 Mg Cap FEEDTUBE 20 mg QDAY FABIEN Administration Folic Acid 1 mg 03/08/22 10:00 03/09/22 09:32 Folic Acid 1 Mg Tab FEEDTUBE 1 mg QDAY FABIEN Administration Hydrophilic Ointment 1 applic 03/04/22 10:47 Lip Therapy Vaseline TP Q2HR PRN Dry Lips Ceftriaxone Sodium 1 gm in 50 mls @ 100 mls/hr 03/04/22 18:00 03/08/22 17:06 Rocephin/Ns 1 Gm/50 Ml IV 03/10/22 18:29 100 mls/hr Q24H FABIEN Administration Dexmedetomidine HCl 200 mcg/ 50 mls @ 3.655 mls/hr 03/07/22 10:00 03/09/22 06:05 Sodium Chloride IV 0 mcg/kg/hr TITRATE FABIEN 0 mls/hr Titration Protocol 0.2 MCG/KG/HR NORepinephrine/NS 8 MG-250 ML 8 mg in 250 mls @ 3.75 mls/hr 03/07/22 19:00 03/09/22 06:23 Norepinephrine/Ns 8 Mg-250 Ml (Double Conc) IV 2 mcg/min TITRATE FABIEN 3.75 mls/hr Titration Protocol 2 MCG/MIN Sodium Chloride 100 mls @ 999 mls/hr 03/09/22 08:58 Nacl 0.9% IV PETRA PRN Hypotension Lactulose 20 gm 03/08/22 10:00 03/09/22 09:31 Lactulose 20 Gm/30 Ml Oral Liqd FEEDTUBE 20 gm QDAY FABIEN Administration Lansoprazole 30 mg 03/09/22 22:00 Lansoprazole 30 Mg Solutab FEEDTUBE BID FABIEN Midodrine 10 mg 03/08/22 15:00 03/09/22 11:48 Midodrine 10 Mg Tab PO 10 mg TID@0800,1200,1600 FABIEN Administration Ondansetron HCl 4 mg 03/04/22 00:02 Ondansetron 4 Mg/2 Ml Inj IV Q8H PRN Nausea And Vomiting Rifaximin 550 mg 03/08/22 10:00 03/09/22 09:32 Rifaximin 550 Mg Tab FEEDTUBE 550 mg BID FABIEN Administration Simple Syrup 15 ml 03/07/22 14:23 03/07/22 17:16 Simple Syrup 15 Ml FEEDTUBE 15 ml PRN PRN Administration Hypoglycemia Simple Syrup 30 ml 03/07/22 14:23 Simple Syrup 15 Ml FEEDTUBE PRN PRN Hypoglycemia Sodium Bicarbonate 1,300 mg 03/05/22 14:00 03/09/22 14:48 Sodium Bicarbonate 650 Mg Tab PO 1,300 mg TID FABIEN Administration Sodium Bicarbonate 325 mg 03/07/22 14:23 Sodium Bicarbonate 325 Mg Tab FEEDTUBE PRN PRN For Clogged Feeding Tube Sodium Chloride 10 ml 03/04/22 10:00 03/09/22 09:32 Sodium Chloride 0.9% 10 Ml Flush Syringe IV 10 ml BID FABIEN Administration Sodium Chloride 10 ml 03/04/22 00:02 Sodium Chloride 0.9% 10 Ml Flush Syringe IV PRN PRN LINE FLUSH Thiamine HCl 100 mg 03/08/22 10:00 03/09/22 09:31 Thiamine 100 Mg Tab FEEDTUBE 100 mg QDAY FABIEN Administration Nutrition/Malnutrition Assess - Dietary Evaluation Nutrition/Malnutrition Findings: Nutrition Notes Start: 03/04/22 10:49 Freq: Status: Active Protocol: Document 03/07/22 15:40 JOSELUIS (Rec: 03/07/22 16:27 JOSELUIS [id number]) Nutrition Notes Initial or Follow up Reassessment Current Diagnosis Acute Kidney Injury,CKD(stage I-IV),Respiratory Failure Other Pertinent Diagnosis Hepatic EtOH Disease/Cirrhosis /Ascites, s/p UGI Bleed, Metabolic Encephal.. Current Diet NPO (since 03/04), TF-Nepro w/ CARBSTEADY @ 35 ml/hr (from D 03/07). Labs/Tests 03/07: K 3.2, CO2 21, BUN 43, Crea 4.3, Ca 7.8, Mg 1.3. Pertinent Medications 03/07: Nutritionally unremarkable. Height 5 ft 4 in Weight 73.1 kg [place] Body Weight (kg) 54.54 BMI 27.6 Intake Prior to Admission Poor Weight change and time frame Pt states being unsure if loss body weight [employer]. No body weight change reported in 3 days. Weight Status Overweight Subjective/Other Information RD consult for write/mange TF. Pt continues on NPO. Ptcontinues on Mechanical Ventilation, O2 saturation @ 100%, according to Physical Assessment History notes. Pt has missing teeth, according to Physical Assessment History notes. Pt presents generalized Non- Pitting Edema 2+, according to Physical Assessment History notes. Pt presents distended/ascitic abdomen, according to Physical Assessment History notes. Paracentesis completed on , well tolerated, according to Progress notes. Pt presents L-LE stasis ulcer as a sign of concern for skin risk, according to Physical Assessment History notes. Percent of energy/protein needs met: Pt continues on NPO. Prescribed TF-Nepro w/ CARBSTEADY @ 35 ml/hr provides for energy/protein needs (1, 500 Kcal/68 g) during LOS, 103 % Kcal; 77% AA. Burn Absent Trauma Absent GI Symptoms None Food Allergy No Skin Integrity/Comment L-LE stasis ulcer. Current % PO Other Minimum of two criteria Yes Energy Intake (non-severe) <75% Estimated Energy Requirement >7 days Fluid Accumulation Moderate to Severe (severe) Reduced Registered Associate Strength N/A (non-severe) Protein-Calorie Malnutrition Non-Severe #2 Nutrition Diagnosis Malnutrition Etiology EtOH Abuse. As Evidenced by Signs and Symptoms <75% Estimated Energy Requirement >7 days, Pt presents generalized Non- Pitting Edema 2+, according to Physical Assessment History notes. #1 Nutrition Diagnosis Altered GI function Diagnosis Progress(for reassessment Continues documentation) Is patient on ventilator? Yes Is Patient Ambulatory and/or Out of Bed No REE-([place]-confined to bed) 1601.220 Kcal/Kg value to use for calculation 20 Approximate Energy Requirements Using 1462 kcal/Kg Calculation Used for Recommendations Kcal/kg Additional Notes Protein: >1.2 g/Kg ABW; >88 g/ day. Fluids: 1-1.5 L/day, or as per MD. Nutrition Intervention Nutrition Support: Start TF-Nepro w/CARBSTEADY @ 35 ml/hr. Flush: 150 ml water Q 4 hr, or as per MD. Kcal 1,500 Protein (gm) 68 Carbohydrates (gm) 134 Fat (gm) 80 Fluid (mL) 606 Fiber (gm) 11 % RDI: 103% Kcal; 77% AA. Goal #1 Provide at least 75% of energy /protein needs through Enteral Feeding during LOS. Follow-Up By: 03/09/22 Additional Comments Start monitoring TF tolerance and BM.
[2022-03-09] MEDS: cefTRIAXone/NS 1 GM/50 ML 1 GM/50 ML BAG IV SCH (17:28)
[2022-03-09] MEDS: LANSOPRAZOLE 30 MG SOLUTAB FEEDTUBE SCH (21:00)
[2022-03-10] MEDS: NORepinephrine/NS 8 MG-250 ML 8 MG/250 ML INFUS..BTL IV SCH (01:36)
--- NOTE | 2022-03-10 04:32 | XRay Report ---
CHEST 1 VIEW 03/10/2022 3:25 AM INDICATION / CLINICAL INFORMATION: follow up respiratory failure. COMPARISON: Previous day. FINDINGS: SUPPORT DEVICES: Unchanged. HEART / MEDIASTINUM: No significant abnormality. LUNGS / PLEURA: No significant pulmonary or pleural abnormality. No pneumothorax. ADDITIONAL FINDINGS: No significant additional findings. IMPRESSION: Stable chest. Signer Name: Barrera Crawford MD Signed: 03/10/2022 4:27 AM Workstation Name: [email or web address]
[2022-03-10 05:06] LABS: Hematocrit 22.9 % (30.3-42.9); Hemoglobin 7.7 gm/dl (10.1-14.3); Mean Corpuscular HGB Conc 34 % (30-34); Mean Corpuscular Volume 95 fl (79-97); Red Blood Count 2.42 M/mm3 (3.65-5.03)
[2022-03-10 05:07] LABS: Platelet Count 37 K/mm3 (140-440)
[2022-03-10 05:23] LABS: Calcium 8.1 mg/dL (8.4-10.2)
[2022-03-10] MEDS: LACTULOSE 20 GM/30 ML ORAL LIQD FEEDTUBE SCH (09:38)
[2022-03-10] MEDS: MIDODRINE 10 MG TAB PO SCH ×3 (09:39→16:17)
[2022-03-10] MEDS: SODIUM BICARBONATE 650 MG TAB PO SCH ×3 (09:39→20:39)
[2022-03-10] MEDS: FLUoxetine 20 MG CAP FEEDTUBE SCH (09:39)
[2022-03-10] MEDS: LANSOPRAZOLE 30 MG SOLUTAB FEEDTUBE SCH ×2 (09:39→21:31)
[2022-03-10] MEDS: THIAMINE 100 MG TAB FEEDTUBE SCH (09:39)
[2022-03-10] MEDS: FOLIC ACID 1 MG TAB FEEDTUBE SCH (09:39)
[2022-03-10] MEDS: RIFAXIMIN 550 MG TAB FEEDTUBE SCH ×2 (10:10→21:29)
--- NOTE | 2022-03-10 10:36 | Progress Note ---
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 Hyperammonemia Acute on Chronic Kidney Disease on HD - replace Potassium per protocol - prn therapeutic paracentesis - supportive transfusions for serum Hb < 7.0 g/dl - continue HD/UF per nephrology for toxin and volume clearance - tolerating tube feeds - wean Levophed for target MAP > 65 mmHg - continue Xifaxan, thiamine and Folate supplementation - continue Daily SAT and SBT assessment as tolerated - continue accuchecks with glycemic control per SSI (While critically ill target blood glucose of 140-180 mg/dL; avoid hypoglycemia) - sedation prn for target RASS 0 to -1 - continue to wean supplemental oxygen for target O2 sat's > 90% acutely - VAP bundle addressed - continue lung protective strategies - continue bronchodilators with pulmonary hygiene per RT - wean per pulmonary driven protocols otherwise - avoid nephrotoxins, renally dose all medications - continue to avoid benzodiazepine's, reduce the possibility of delirium - AB's per ID rec's - prn analgesia per CPOT score - Maintenance of sleep-wake cycle, avoid delirium - continue enteral nutritional support at goal rate as tolerated - G.I. & VTE prophylaxis - PT/OT/ROM exercises - continue mobility protocols for pressure ulcer prophylaxis - Monitor hemodynamics closely - continue other care per attending / other consultants - discharge planning ongoing concurrently .... Re-evaluate in am & prn CONDITION: CRITICAL PROGNOSIS: GUARDED CODE STATUS: FULL CODE The high probability of a clinically significant, sudden or life-threatening deterioration of the [respiratory, cardiovascular, GI & neurologic] system(s) required my full and direct attention, intervention and personal management. The aggregate critical care time was [33] minutes without overlap. Time includes spent on; [x] Data Review and interpretation [x] Patient assessment and monitoring of vital signs [x] Documentation [x] Medication orders and management Subjective Date of service: 03/10/22 Principal diagnosis: AHRF on MVS; ABLA; UGIB; Thrombocytopenia; AMS; ETOH Abuse; ROSEMARY on HD Interval history: Patient is seen today for: Acute Hypoxemic Respiratory Failure on MVS; ABLA; UGI Bleed; Thrombocytopenia; AMS; ETOH Abuse; ROSEMARY on HD Seen and examined at bedside; 24hour events reviewed; nursing and respiratory care staff consulted; no adverse overnight events reported to me; resting in bed; remains on MVS but tolerating SBT better today; Objective Vital Signs - 12hr 03/09/22 03/09/22 03/09/22 22:45 23:00 23:10 Temperature Pulse Rate 77 83 82 Pulse Rate [ From Monitor] Respiratory 17 15 20 Rate Blood Pressure 103/52 103/47 103/47 O2 Sat by Pulse 100 100 99 Oximetry 03/09/22 03/09/22 03/09/22 23:12 23:15 23:30 Temperature Pulse Rate 77 85 Pulse Rate [ 75 From Monitor] Respiratory 20 20 19 Rate Blood Pressure 103/56 97/49 O2 Sat by Pulse 98 100 Oximetry 03/09/22 03/09/22 03/10/22 23:45 23:46 00:00 Temperature 98.2 F Pulse Rate 78 90 80 Pulse Rate [ From Monitor] Respiratory 15 22 Rate Blood Pressure 118/59 113/64 120/59 O2 Sat by Pulse 100 99 100 Oximetry 03/10/22 03/10/22 03/10/22 00:15 00:30 00:45 Temperature Pulse Rate 78 78 80 Pulse Rate [ From Monitor] Respiratory 18 21 20 Rate Blood Pressure 118/59 118/59 117/61 O2 Sat by Pulse 100 100 100 Oximetry 03/10/22 03/10/22 03/10/22 01:00 01:15 01:30 Temperature Pulse Rate 76 84 82 Pulse Rate [ From Monitor] Respiratory 17 19 20 Rate Blood Pressure 104/56 105/58 96/51 O2 Sat by Pulse 100 100 100 Oximetry 03/10/22 03/10/22 03/10/22 01:45 02:00 02:15 Temperature Pulse Rate 79 80 81 Pulse Rate [ From Monitor] Respiratory 20 20 19 Rate Blood Pressure 105/51 116/59 97/57 O2 Sat by Pulse 100 100 100 Oximetry 03/10/22 03/10/22 03/10/22 02:30 02:45 03:00 Temperature Pulse Rate 82 83 82 Pulse Rate [ From Monitor] Respiratory 20 20 15 Rate Blood Pressure 92/59 105/58 98/53 O2 Sat by Pulse 100 100 100 Oximetry 03/10/22 03/10/22 03/10/22 03:08 03:15 03:30 Temperature Pulse Rate 78 84 82 Pulse Rate [ 74 From Monitor] Respiratory 20 21 20 Rate Blood Pressure 108/45 105/60 O2 Sat by Pulse 98 100 100 Oximetry 03/10/22 03/10/22 03/10/22 03:45 04:00 04:15 Temperature 98.1 F Pulse Rate 83 83 84 Pulse Rate [ From Monitor] Respiratory 15 11 L 20 Rate Blood Pressure 105/51 115/61 119/59 O2 Sat by Pulse 99 100 100 Oximetry 03/10/22 03/10/22 03/10/22 04:30 04:38 04:45 Temperature Pulse Rate 84 85 84 Pulse Rate [ From Monitor] Respiratory 19 18 Rate Blood Pressure 112/65 112/65 108/55 O2 Sat by Pulse 100 99 100 Oximetry 03/10/22 03/10/22 03/10/22 05:00 05:15 05:30 Temperature Pulse Rate 86 85 98 H Pulse Rate [ From Monitor] Respiratory 17 20 18 Rate Blood Pressure 106/56 109/53 124/69 O2 Sat by Pulse 100 98 97 Oximetry 03/10/22 03/10/22 03/10/22 05:45 06:00 06:15 Temperature Pulse Rate 92 H 90 86 Pulse Rate [ From Monitor] Respiratory 20 24 21 Rate Blood Pressure 101/52 98/53 98/51 O2 Sat by Pulse 98 100 100 Oximetry 03/10/22 03/10/22 03/10/22 06:30 06:45 07:00 Temperature Pulse Rate 92 H 91 H 88 Pulse Rate [ From Monitor] Respiratory 20 20 20 Rate Blood Pressure 95/51 103/53 88/42 O2 Sat by Pulse 99 98 98 Oximetry 03/10/22 03/10/22 03/10/22 07:15 07:30 07:45 Temperature Pulse Rate 89 88 88 Pulse Rate [ From Monitor] Respiratory 19 21 20 Rate Blood Pressure 93/43 84/42 92/43 O2 Sat by Pulse 96 96 Oximetry 03/10/22 03/10/22 03/10/22 08:00 08:15 08:30 Temperature 98.1 F Pulse Rate 89 87 87 Pulse Rate [ From Monitor] Respiratory 20 19 19 Rate Blood Pressure 91/39 91/42 87/39 O2 Sat by Pulse 99 98 99 Oximetry 03/10/22 03/10/22 03/10/22 08:45 08:46 09:00 Temperature Pulse Rate 84 88 85 Pulse Rate [ From Monitor] Respiratory 19 11 L Rate Blood Pressure 90/39 90/39 90/39 O2 Sat by Pulse 97 98 97 Oximetry 03/10/22 03/10/22 03/10/22 09:15 09:30 09:45 Temperature Pulse Rate 87 88 89 Pulse Rate [ From Monitor] Respiratory 9 L 12 11 L Rate Blood Pressure 94/45 94/41 99/42 O2 Sat by Pulse 98 97 Oximetry 03/10/22 10:00 Temperature Pulse Rate 85 Pulse Rate [ From Monitor] Respiratory 13 Rate Blood Pressure 103/49 O2 Sat by Pulse 100 Oximetry Constitutional: no acute distress, other (middle aged and chronically ill looking female with normal respiratory effort at rest) Eyes: icteric ENT: oropharynx moist, other (ETT 24 cm RENETTA) Neck: supple, no lymphadenopathy, no JVD, other (RIJ Vascath) Effort: mildly labored Ascultation: Bilateral: diminished breath sounds Percussion: Bilateral: not dull Cardiovascular: regular rate and rhythm, other Gastrointestinal: hypoactive bowel sounds, soft, non-tender, other (distended) Integumentary: normal Extremities: no cyanosis, pink and warm, pulses normal, edema Neurologic: normal mental status, non-focal exam (grossly), pupils equal and round, CN II-XII normal Psychiatric: mood appropriate, affect normal CBC and BMP: 03/10/22 04:32 03/10/22 04:32 ABG, PT/INR, D-dimer: ABG ABG pH 7.496 pH Units (7.350-7.450) H 03/09/22 04:25 ABG pCO2 32.6 mm Hg 03/09/22 04:25 ABG pO2 103.8 mm Hg (80.0-90.0) H 03/09/22 04:25 ABG O2 Saturation 98.0 % (95.0-99.0) 03/09/22 04:25 PT/INR, D-dimer PT 22.9 Sec. (12.2-14.9) H 03/07/22 05:48 INR 1.78 (0.87-1.13) H 03/07/22 05:48 Abnormal lab findings: Abnormal Labs 03/03/22 03/03/22 03/03/22 19:44 19:44 19:44 RBC Hgb Hct MCV MCH RDW Plt Count Seg Neutrophils % Seg Neutrophils # PT 23.2 H INR 1.80 H ABG pH ABG pO2 ABG HCO3 ABG O2 Saturation ABG Base Excess ABG Hemoglobin Oxyhemoglobin Potassium Chloride Carbon Dioxide 20 L BUN 86 H Creatinine 5.5 H Glucose POC Glucose Calcium 8.0 L Magnesium Total Bilirubin 3.60 H Ammonia 141.0 H Troponin T 0.057 H Total Protein 6.1 L Albumin 2.4 L LDL Cholesterol Direct 35 L HDL Cholesterol 21 L Salicylates Acetaminophen 03/03/22 03/03/22 03/03/22 19:44 19:44 21:30 RBC Hgb Hct MCV MCH RDW Plt Count Seg Neutrophils % Seg Neutrophils # PT INR ABG pH ABG pO2 ABG HCO3 ABG O2 Saturation ABG Base Excess -3.7 L ABG Hemoglobin 5.0 L Oxyhemoglobin 94.8 L Potassium Chloride Carbon Dioxide BUN Creatinine Glucose POC Glucose Calcium Magnesium Total Bilirubin Ammonia Troponin T Total Protein Albumin LDL Cholesterol Direct HDL Cholesterol Salicylates < 0.3 L Acetaminophen 5.0 L 03/03/22 03/04/22 03/04/22 21:35 11:03 11:03 RBC 1.69 L 3.00 L Hgb 5.8 L* 9.4 L D Hct 17.2 L* 28.3 L D MCV 102 H MCH 34 H RDW 19.8 H 23.5 H Plt Count 75 L 72 L Seg Neutrophils % 71.2 H Seg Neutrophils # PT 20.7 H INR 1.57 H ABG pH ABG pO2 ABG HCO3 ABG O2 Saturation ABG Base Excess ABG Hemoglobin Oxyhemoglobin Potassium Chloride Carbon Dioxide BUN Creatinine Glucose POC Glucose Calcium Magnesium Total Bilirubin Ammonia Troponin T Total Protein Albumin LDL Cholesterol Direct HDL Cholesterol Salicylates Acetaminophen 03/04/22 03/04/22 03/04/22 11:03 12:00 15:30 RBC Hgb 9.3 L Hct 28.4 L MCV MCH RDW Plt Count Seg Neutrophils % Seg Neutrophils # PT INR ABG pH 7.301 L ABG pO2 273.8 H ABG HCO3 17.6 L ABG O2 Saturation 99.4 H ABG Base Excess -8.1 L ABG Hemoglobin 9.2 L Oxyhemoglobin Potassium Chloride Carbon Dioxide 18 L BUN 79 H Creatinine 5.0 H Glucose POC Glucose Calcium 8.3 L Magnesium Total Bilirubin Ammonia Troponin T Total Protein Albumin LDL Cholesterol Direct HDL Cholesterol Salicylates Acetaminophen 03/05/22 03/05/2203/05/22 00:27 04:00 06:20 RBC 2.80 L Hgb 8.9 L 8.5 L Hct 27.2 L 26.7 L MCV MCH RDW 24.1 H Plt Count 93 L 94 L Seg Neutrophils % 78.7 H Seg Neutrophils # 8.6 H PT INR ABG pH 7.290 L ABG pO2 145.8 H ABG HCO3 17.9 L ABG O2 Saturation ABG Base Excess -8.0 L ABG Hemoglobin 8.8 L Oxyhemoglobin Potassium Chloride Carbon Dioxide BUN Creatinine Glucose POC Glucose Calcium Magnesium Total Bilirubin Ammonia Troponin T Total Protein Albumin LDL Cholesterol Direct HDL Cholesterol Salicylates Acetaminophen 03/05/22 03/05/22 03/05/22 06:20 06:20 06:20 RBC Hgb Hct MCV MCH RDW Plt Count Seg Neutrophils % Seg Neutrophils # PT 20.6 H INR 1.56 H ABG pH ABG pO2 ABG HCO3 ABG O2 Saturation ABG Base Excess ABG Hemoglobin Oxyhemoglobin Potassium Chloride Carbon Dioxide 16 L BUN 80 H Creatinine 5.5 H Glucose POC Glucose Calcium 8.0 L Magnesium Total Bilirubin Ammonia 73.0 H Troponin T Total Protein Albumin LDL Cholesterol Direct HDL Cholesterol Salicylates Acetaminophen 03/05/22 03/06/22 03/06/22 16:52 03:37 03:37 RBC 2.42 L Hgb 8.5 L 7.6 L Hct 25.6 L 23.1 L MCV MCH RDW 24.2 H Plt Count 74 L 64 L Seg Neutrophils % Seg Neutrophils # PT INR ABG pH ABG pO2 ABG HCO3 ABG O2 Saturation ABG Base Excess ABG Hemoglobin Oxyhemoglobin Potassium Chloride 108.9 H Carbon Dioxide 18 L BUN 81 H Creatinine 5.9 H Glucose 131 H POC Glucose Calcium 7.5 L Magnesium Total Bilirubin Ammonia Troponin T Total Protein Albumin LDL Cholesterol Direct HDL Cholesterol Salicylates Acetaminophen 03/06/22 03/06/22 03/06/22 04:55 11:50 14:30 RBC Hgb Hct MCV MCH RDW Plt Count Seg Neutrophils % Seg Neutrophils # PT 20.8 H INR 1.58 H ABG pH 7.272 L ABG pO2 103.3 H ABG HCO3 18.8 L ABG O2 Saturation ABG Base Excess -7.5 L ABG Hemoglobin 7.6 L Oxyhemoglobin Potassium Chloride Carbon Dioxide BUN Creatinine Glucose POC Glucose 140 H Calcium Magnesium Total Bilirubin Ammonia Troponin T Total Protein Albumin LDL Cholesterol Direct HDL Cholesterol Salicylates Acetaminophen 03/06/22 03/07/22 03/07/22 17:48 04:00 05:48 RBC 2.42 L Hgb 7.6 L Hct 22.7 L MCV MCH RDW 23.9 H Plt Count 44 L Seg Neutrophils % Seg Neutrophils # PT INR ABG pH ABG pO2 97.1 H ABG HCO3 ABG O2 Saturation ABG Base Excess ABG Hemoglobin 7.7 L Oxyhemoglobin Potassium Chloride Carbon Dioxide BUN Creatinine Glucose POC Glucose 126 H Calcium Magnesium Total Bilirubin Ammonia Troponin T Total Protein Albumin LDL Cholesterol Direct HDL Cholesterol Salicylates Acetaminophen 03/07/22 03/07/22 03/08/22 05:48 05:48 04:20 RBC Hgb Hct MCV MCH RDW Plt Count Seg Neutrophils % Seg Neutrophils # PT 22.9 H INR 1.78 H ABG pH ABG pO2 108.4 H ABG HCO3 ABG O2 Saturation ABG Base Excess -3.4 L ABG Hemoglobin 7.7 L Oxyhemoglobin Potassium 3.2 L Chloride Carbon Dioxide 21 L BUN 43 H Creatinine 4.3 H Glucose POC Glucose Calcium 7.8 L Magnesium 1.30 L Total Bilirubin 2.40 H Ammonia Troponin T Total Protein 5.3 L Albumin 2.1 L LDL Cholesterol Direct HDL Cholesterol Salicylates Acetaminophen 03/08/22 03/08/22 03/08/22 05:49 05:49 23:54 RBC 2.40 L Hgb 7.6 L Hct 22.5 L MCV MCH RDW 24.1 H Plt Count 54 L Seg Neutrophils % Seg Neutrophils # PT INR ABG pH ABG pO2 ABG HCO3 ABG O2 Saturation ABG Base Excess ABG Hemoglobin Oxyhemoglobin Potassium 3.4 L Chloride Carbon Dioxide 19 L BUN 46 H Creatinine 4.4 H Glucose POC Glucose 125 H Calcium 8.3 L Magnesium Total Bilirubin 2.20 H Ammonia Troponin T Total Protein 5.3 L Albumin 2.4 L LDL Cholesterol Direct HDL Cholesterol Salicylates Acetaminophen 03/09/22 03/09/22 03/09/22 04:25 05:15 05:15 RBC 2.38 L Hgb 7.6 L Hct 22.4 L MCV MCH RDW 24.9 H Plt Count 36 L Seg Neutrophils % Seg Neutrophils # PT INR ABG pH 7.496 H ABG pO2 103.8 H ABG HCO3 ABG O2 Saturation ABG Base Excess ABG Hemoglobin 7.4 L Oxyhemoglobin Potassium 3.1 L Chloride Carbon Dioxide BUN 24 H Creatinine 2.9 H Glucose 136 H POC Glucose Calcium 8.1 L Magnesium 1.50 L Total Bilirubin Ammonia Troponin T Total Protein Albumin LDL Cholesterol Direct HDL Cholesterol Salicylates Acetaminophen 03/10/22 03/10/22 03/10/22 04:32 04:32 05:15 RBC 2.42 L Hgb 7.7 L Hct 22.9 L MCV MCH RDW 26.0 H Plt Count 37 L Seg Neutrophils % Seg Neutrophils # PT INR ABG pH ABG pO2 ABG HCO3 ABG O2 Saturation ABG Base Excess ABG Hemoglobin Oxyhemoglobin Potassium 3.5 L Chloride Carbon Dioxide BUN 31 H Creatinine 3.4 H Glucose 114 H POC Glucose 114 H Calcium 8.1 L Magnesium Total Bilirubin Ammonia Troponin T Total Protein Albumin LDL Cholesterol Direct HDL Cholesterol Salicylates Acetaminophen Allied health notes reviewed: nursing
--- NOTE | 2022-03-10 11:58 | Progress Note ---
Assessment and Plan Impression * Acute kidney injury vs ROSEMARY on CKD --HD initiated at [facility] in 01/2022 * Acute hypoxic respiratory failure, s/p intubation * Cirrhosis * Anemia secondary to acute blood loss/GI bleed --s/p EGD on 03/04/2022 with distal esophageal ulcer, duodenal ulcer, portal hypertensive gastropathy. No active bleeding. * Esophageal/duodenal ulcer * Metabolic acidosis * Hypotension, secondary to ABL * Thrombocytopenia * Acute encephalopathy Plan: * HD today - UF as tolerated * Continue MWF schedule * Adjust K bath with dialysis * Transfuse for hemoglobin less than 7 * Maintain MAP>65 - pressors prn * Strict I/O * Dose medications for renal function * Avoid nephrotoxins * Diet per GI/primary team Subjective Date of service: 03/10/22 Principal diagnosis: AHRF on MVS; ABLA; UGIB; Thrombocytopenia; AMS; ETOH Abuse; ROSEMARY on HD Interval history: Patient is awake, now on PS trial. Objective - Vital Signs Vital signs: Vital Signs - 12hr 03/10/22 03/10/22 03/10/22 00:00 00:15 00:30 Temperature 98.2 F Pulse Rate 80 78 78 Pulse Rate [ From Monitor] Respiratory 22 18 21 Rate Blood Pressure 120/59 118/59 118/59 O2 Sat by Pulse 100 100 100 Oximetry 03/10/22 03/10/22 03/10/22 00:45 01:00 01:15 Temperature Pulse Rate 80 76 84 Pulse Rate [ From Monitor] Respiratory 20 17 19 Rate Blood Pressure 117/61 104/56 105/58 O2 Sat by Pulse 100 100 100 Oximetry 03/10/22 03/10/22 03/10/22 01:30 01:45 02:00 Temperature Pulse Rate 82 79 80 Pulse Rate [ From Monitor] Respiratory 20 20 20 Rate Blood Pressure 96/51 105/51 116/59 O2 Sat by Pulse 100 100 100 Oximetry 03/10/22 03/10/22 03/10/22 02:15 02:30 02:45 Temperature Pulse Rate 81 82 83 Pulse Rate [ From Monitor] Respiratory 19 20 20 Rate Blood Pressure 97/57 92/59 105/58 O2 Sat by Pulse 100 100 100 Oximetry 03/10/22 03/10/22 03/10/22 03:00 03:08 03:15 Temperature Pulse Rate 82 78 84 Pulse Rate [ 74 From Monitor] Respiratory 15 20 21 Rate Blood Pressure 98/53 108/45 O2 Sat by Pulse 100 98 100 Oximetry 03/10/22 03/10/22 03/10/22 03:30 03:45 04:00 Temperature 98.1 F Pulse Rate 82 83 83 Pulse Rate [ From Monitor] Respiratory 20 15 11 L Rate Blood Pressure 105/60 105/51 115/61 O2 Sat by Pulse 100 99 100 Oximetry 03/10/22 03/10/22 03/10/22 04:15 04:30 04:38 Temperature Pulse Rate 84 84 85 Pulse Rate [ From Monitor] Respiratory 20 19 Rate Blood Pressure 119/59 112/65 112/65 O2 Sat by Pulse 100 100 99 Oximetry 03/10/22 03/10/22 03/10/22 04:45 05:00 05:15 Temperature Pulse Rate 84 86 85 Pulse Rate [ From Monitor] Respiratory 18 17 20 Rate Blood Pressure 108/55 106/56 109/53 O2 Sat by Pulse 100 100 98 Oximetry 03/10/22 03/10/22 03/10/22 05:30 05:45 06:00 Temperature Pulse Rate 98 H 92 H 90 Pulse Rate [ From Monitor] Respiratory 18 20 24 Rate Blood Pressure 124/69 101/52 98/53 O2 Sat by Pulse 97 98 100 Oximetry 03/10/22 03/10/22 03/10/22 06:15 06:30 06:45 Temperature Pulse Rate 86 92 H 91 H Pulse Rate [ From Monitor] Respiratory 21 20 20 Rate Blood Pressure 98/51 95/51 103/53 O2 Sat by Pulse 100 99 98 Oximetry 03/10/22 03/10/22 03/10/22 07:00 07:15 07:30 Temperature Pulse Rate 88 89 88 Pulse Rate [ From Monitor] Respiratory 20 19 21 Rate Blood Pressure 88/42 93/43 84/42 O2 Sat by Pulse 98 96 Oximetry 03/10/22 03/10/22 03/10/22 07:45 08:00 08:15 Temperature 98.1 F Pulse Rate 88 89 87 Pulse Rate [ 91 H From Monitor] Respiratory 20 18 19 Rate Blood Pressure 92/43 91/39 91/42 O2 Sat by Pulse 96 97 98 Oximetry 03/10/22 03/10/22 03/10/22 08:30 08:45 08:46 Temperature Pulse Rate 87 84 88 Pulse Rate [ From Monitor] Respiratory 19 19 Rate Blood Pressure 87/39 90/39 90/39 O2 Sat by Pulse 99 97 98 Oximetry 03/10/22 03/10/22 03/10/22 09:00 09:15 09:30 Temperature Pulse Rate 85 87 88 Pulse Rate [ From Monitor] Respiratory 11 L 9 L 12 Rate Blood Pressure 103/49 94/45 94/41 O2 Sat by Pulse 100 98 Oximetry 03/10/22 03/10/22 03/10/22 09:45 10:00 10:15 Temperature Pulse Rate 89 85 87 Pulse Rate [ From Monitor] Respiratory 11 L 13 14 Rate Blood Pressure 99/42 103/49 85/45 O2 Sat by Pulse 97 100 Oximetry 03/10/22 03/10/22 03/10/22 10:30 10:45 11:00 Temperature Pulse Rate 88 88 89 Pulse Rate [ From Monitor] Respiratory 13 14 15 Rate Blood Pressure 99/41 100/41 93/43 O2 Sat by Pulse 98 94 95 Oximetry 03/10/22 03/10/22 11:15 11:44 Temperature Pulse Rate 89 93 H Pulse Rate [ From Monitor] Respiratory 13 16 Rate Blood Pressure 97/46 97/46 O2 Sat by Pulse 94 95 Oximetry - General Appearance General appearance: well-developed, well-nourished, intubated EENT: ATNC, other (ETT in place) Cardiology: regular, S1S2 Gastrointestinal: normal, no tenderness, no distended Integumentary: warm and dry Musculoskeletal: other (trace edema) - Lab 03/10/22 04:32 03/10/22 04:32 Most recent lab results ABG pH 7.496 pH Units (7.350-7.450) H 03/09/22 04:25 ABG pCO2 32.6 mm Hg 03/09/22 04:25 ABG pO2 103.8 mm Hg (80.0-90.0) H 03/09/22 04:25 ABG HCO3 24.7 mmol/L (20.0-26.0) 03/09/22 04:25 ABG O2 Saturation 98.0 % (95.0-99.0) 03/09/22 04:25 Calcium 8.1 mg/dL (8.4-10.2) L 03/10/22 04:32 Phosphorus 2.90 mg/dL (2.5-4.5) 03/10/22 04:32 Magnesium 1.90 mg/dL (1.7-2.3) 03/10/22 04:32 Medications & Allergies - Medications Allergies/Adverse Reactions: Allergies Penicillins Allergy (Verified 03/03/22 17:17) Rash Home Medications: Home Medications Medication Instructions Recorded Confirmed Last Taken Type FLUoxetine [PROzac] 20 mg PO QDAY #30 capsule 04/27/16 12/30/16 Unknown Rx Folic Acid 1 tab PO QDAY #30 tab 04/27/16 12/30/16 Unknown Rx Multivitamin Tab [Multiple Vitamin 1 each PO ONCE #30 tablet 04/27/16 12/30/16 Unknown Rx TAB (Theragran)] Thiamine [Vitamin B-1] 100 mg PO QDAY #30 tablet 04/27/16 12/30/16 Unknown Rx traZODone [Desyrel] 50 mg PO QHS #30 tab 04/27/16 12/30/16 Unknown Rx chlordiazePOXIDE [Librium] 25 mg PO Q6H #10 capsule 08/11/20 Unknown Rx Active Medications: Generic Name Dose Route Start Last Admin Trade Name Freq PRN Reason Stop Dose Admin Albuterol 2.5 mg 03/10/22 14:00 Albuterol 2.5 Mg/3 Ml Nebu IH TIDRT FABIEN Lipase/Protease/Amylase 1 each 03/07/22 14:23 Lipase 10,500/Protease 25,000/Amylase 43,750 (Units) Cap FEEDTUBE PRN PRN For Clogged Feeding Tube Fluoxetine HCl 20 mg 03/08/22 10:00 03/10/22 09:39 Fluoxetine 20 Mg Cap FEEDTUBE 20 mg QDAY FABIEN Administration Folic Acid 1 mg 03/08/22 10:00 03/10/22 09:39 Folic Acid 1 Mg Tab FEEDTUBE 1 mg QDAY FABIEN Administration Hydrophilic Ointment 1 applic 03/04/22 10:47 Lip Therapy Vaseline TP Q2HR PRN Dry Lips Ceftriaxone Sodium 1 gm in 50 mls @ 100 mls/hr 03/04/22 18:00 03/09/22 17:28 Rocephin/Ns 1 Gm/50 Ml IV 03/10/22 18:29 100 mls/hr Q24H FABIEN Administration Dexmedetomidine HCl 200 mcg/ 50 mls @ 3.655 mls/hr 03/07/22 10:00 03/09/22 06:05 Sodium Chloride IV 0 mcg/kg/hr TITRATE FABIEN 0 mls/hr Titration Protocol 0.2 MCG/KG/HR NORepinephrine/NS 8 MG-250 ML 8 mg in 250 mls @ 3.75 mls/hr 03/07/22 19:00 03/10/22 04:51 Norepinephrine/Ns 8 Mg-250 Ml (Double Conc) IV 0 mcg/min TITRATE FABIEN 0 mls/hr Titration Protocol 2 MCG/MIN Sodium Chloride 100 mls @ 999 mls/hr 03/09/22 08:58 Nacl 0.9% IV PETRA PRN Hypotension Lactulose 20 gm 03/08/22 10:00 03/10/22 09:38 Lactulose 20 Gm/30 Ml Oral Liqd FEEDTUBE 20 gm QDAY FABIEN Administration Lansoprazole 30 mg 03/09/22 22:00 03/10/22 09:39 Lansoprazole 30 Mg Solutab FEEDTUBE 30 mg BID FABIEN Administration Midodrine 10 mg 03/08/22 15:00 03/10/22 09:39 Midodrine 10 Mg Tab PO 10 mg TID@0800,1200,1600 FABIEN Administration Ondansetron HCl 4 mg 03/04/22 00:02 Ondansetron 4 Mg/2 Ml Inj IV Q8H PRN Nausea And Vomiting Rifaximin 550 mg 03/08/22 10:00 03/10/22 10:10 Rifaximin 550 Mg Tab FEEDTUBE 550 mg BID FABIEN Administration Simple Syrup 15 ml 03/07/22 14:23 03/07/22 17:16 Simple Syrup 15 Ml FEEDTUBE 15 ml PRN PRN Administration Hypoglycemia Simple Syrup 30 ml 03/07/22 14:23 Simple Syrup 15 Ml FEEDTUBE PRN PRN Hypoglycemia Sodium Bicarbonate 1,300 mg 03/05/22 14:00 03/10/22 09:39 Sodium Bicarbonate 650 Mg Tab PO 1,300 mg TID FABIEN Administration Sodium Bicarbonate 325 mg 03/07/22 14:23 Sodium Bicarbonate 325 Mg Tab FEEDTUBE PRN PRN For Clogged Feeding Tube Sodium Chloride 10 ml 03/04/22 10:00 03/10/22 09:39 Sodium Chloride 0.9% 10 Ml Flush Syringe IV 10 ml BID FABIEN Administration Sodium Chloride 10 ml 03/04/22 00:02 Sodium Chloride 0.9% 10 Ml Flush Syringe IV PRN PRN LINE FLUSH Thiamine HCl 100 mg 03/08/22 10:00 03/10/22 09:39 Thiamine 100 Mg Tab FEEDTUBE 100 mg QDAY FABIEN Administration
[2022-03-10 12:28] LABS: ABG Base Excess 1.1 mmol/L (-2.0-3.0); ABG HCO3 25.8 mmol/L (20.0-26.0); ABG Methemoglobin 0.7 % (0.0-1.5); ABG Oxygen Saturation 94.2 % (95.0-99.0); ABG PCO2 41.4 mm Hg; ABG PH 7.412 pH Units (7.350-7.450); ABG PO2 68.8 mm Hg (80.0-90.0)
--- NOTE | 2022-03-10 12:46 | Progress Note ---
Assessment and Plan Assessment and plan: This is a 51-year-old female with alcoholic liver disease, HFpEF, recent PEA arrest at [facility] (01/2022), and CKD s/p HD from recent hospitalization, admitted for Acute blood loss anemia 2/2 Upper GIB Neuro: Hepatic encephalopathy, h/o EtOH abuse -s/p Precedex drip -RASS goal 0 to -1 -Reorientation as needed -Maintain sleep-wake cycle -As needed analgesia -CT head shows no acute focal parenchymal lesion -CIWA protocol -Lactulose p.o. daily Cardiac: Hypotension -Blood pressure monitoring per protocol -s/p vasopressor support with Levophed -Midodrine 10 mg TID Respiratory: Acute hypoxic respiratory failure -CCM consulted, appreciate recommendations -Intubated on 03/04 with a 7.50 ETT at 22 the lips for EGD -A.m. vent settings: Assist-control/PRVC rate 20, tidal volume 600, PEEP 6, FiO2 25% -See RT notes for titration -currently on CPAP -A.m. ABG and CXR noted -VAP bundle -SPO2 monitoring GI: Upper GI bleed, alcoholic liver cirrhosis with ascites -GI consulted, appreciate recommendations -Abdomen/pelvis CT without contrast shows cirrhosis with portal hypertension including splenomegaly and large volume ascites, 5.4 cm left adnexal dermoid -S/p EGD on 03/04 which showed blood in the oropharynx, clean base without ulcer at the GE junction without active bleeding, LA grade B esophagitis at the distal esophagus, retained food/fluid debris's in the gastric fundus and body, diffuse portal hypertensive gastropathy changes in the gastric body with no active bleeding, large area of ulceration in the duodenal sweep without high risk stigmata or active bleeding. -S/p PPI and octreotide drip -S/p paracentesis on 03/06 with removal of 7 Liters -24 hours + 1816 mL -PPI -NTR consulted for tube feedings -BR: Lactulose -Rifaximin : Acute on chronic renal failure -Nephrology consulted, appreciate recommendations -Monitor intake and output -HD per nephrology (MWF) -03/08 HD 1L removed -Bicarb TID -Senior catheter discontinued 03/06 -Bladder scan nightly -Renally dose medications -Avoid nephrotoxic medications -Renal ultrasound shows left renal cyst -Trend BMP ID: NAD -Antibiotic therapy: Rocephin for 7 days for possible SBP -Rifaximin -f/u blood culture -Monitor WBC and temperature curve Endo: NAD -Avoid hypoglycemia -SSI -Accu-Cheks q. 6 Heme: Acute blood loss anemia -Presented with melena and hematemesis -s/p 3 units prbc and vit K -Trend CBC -Transfuse hemoglobin less than 7 -SCDs to BLE while in bed The high probability of a clinically significant, sudden or life threatening deterioration of the [multiple] system(s) required my full and direct attention, intervention and personal management. The aggregate critical care time was [60] minutes. This time is in addition to time spent performing reported procedures but includes the following: [x] Data Review and interpretation [x] Patient assessment and monitoring of vital signs [x] Documentation [x] Medication orders and management Disposition Plan: icu Total Time Spent with Patient (Minutes): 60 History Interval history: This is a 51-year-old female with EtOH cirrhosis,HFpEF, recent PEA arrest at [facility] (01/2022), CKD on HD who presented to emergency department via EMS on 03/04 with altered mental status. Upon arrival to the emergency department patient's blood pressure was 90/50, tachycardic and confused. Patient also had some blood in her mouth and melena. Work-up the emergency department revealed a H/H of 5.8/17.2, BUN/creatinine of 86/5.5, ammonia 141, tox screen essentially negative, CXR showed increased pulmonary vascularity with mild to moderate interstitial pulmonary edema with no pneumothorax and CT of the abdomen/pelvis showed cirrhosis with portal hypertension including splenomegaly and large volume ascites. Patient was started on a PPI and octreotide drip and given a blood transfusion. Patient was admitted to the hospital service with consults to GI, CCM and nephrology. Hospital course to date: 03/04: Patient had EGD. GI consult and follow-up/procedure appreciated. Patient has a clean base white ulcer at the GE junction without any active bleeding. No obvious associated esophageal varices found. Distal esophagitis. Diffuse portal hypertensive gastropathy changes in the gastric body. A large area of ulceration in the duodenal sweep without high risk stigmata or active bleeding found. 03/05: Patient remains intubated and sedated. On protonix and octreotide gtt per GI. No report of any bleeding overnight. GI recommendations noted. Worsen renal function this morning with anuria, on continuous IVF for now. Per Nephro no indication for HD at this time. Will switch IVF to D51/2NS, close monitor of BG level. Continue to monitor H&H, coags, and liver function. US paracentesis pending. D/W CCM plan to rest patient on the vent over the weekend, will attempt SAT/SBT in the am. 03-06 paracentesis completed 03-07 failed SBT; was agitated overnight (got ativan x 2) 03/08: Patient failed SBT x2, patient remained on Levophed. This afternoon she was started on hemodialysis and Levophed requirements increased. PICC line consulted for PICC placement which was okayed with nephrology. [facility] placed CVL this evening. 03/09: Patient failed SBT again this morning however she does follow commands intermittently. No acute events reported overnight. Levophed remains at 2. 03/10: CPAP today. Plan to last on CPAP as long as tolerated. Off levophed gtt. Hospitalist Physical - Constitutional Vitals: Temp Pulse Resp BP Pulse Ox 98.1 F 93 H 16 97/46 95 03/10/22 08:00 03/10/22 11:44 03/10/22 11:44 03/10/22 11:44 03/10/22 11:44 General appearance: Present: no acute distress, other (Intubated and Sedated) - EENT Eyes: Present: PERRL, EOM intact ENT: hearing intact, dentition normal - Neck Neck: Present: normal ROM - Respiratory Respiratory effort: normal Respiratory: bilateral: CTA, diminished - Cardiovascular Rhythm: regular Heart Sounds: Present: S1 & S2. Absent: systolic murmur, diastolic murmur - Extremities Extremities: no ischemia, pulses intact, pulses symmetrical, No edema, normal temperature, normal color Peripheral Pulses: within normal limits - Abdominal General gastrointestinal: soft, non-tender, non-distended, normal bowel sounds - Integumentary Integumentary: Present: warm, dry - Psychiatric Psychiatric: cooperative - Neurologic Neurologic: CNII-XII intact, moves all extremities - Allied Health Allied health notes reviewed: nursing, RT, social work HEART Score - HEART Score Troponin: Troponin T 0.057 ng/mL (0.00-0.029) H 03/03/22 19:44 Results - Labs CBC & Chem 7: 03/10/22 04:32 03/10/22 04:32 Labs: Laboratory Last Values WBC 7.2 K/mm3 (4.5-11.0) 03/10/22 04:32 RBC 2.42 M/mm3 (3.65-5.03) L 03/10/22 04:32 Hgb 7.7 gm/dl (10.1-14.3) L 03/10/22 04:32 Hct 22.9 % (30.3-42.9) L 03/10/22 04:32 MCV 95 fl (79-97) 03/10/22 04:32 MCH 32 pg (28-32) 03/10/22 04:32 MCHC 34 % (30-34) 03/10/22 04:32 RDW 26.0 % (13.2-15.2) H 03/10/22 04:32 Plt Count 37 K/mm3 (140-440) L 03/10/22 04:32 Lymph % (Auto) 22.0 % (13.4-35.0) 03/08/22 05:49 [place] % (Auto) 7.3 % (0.0-7.3) 03/08/22 05:49 Eos % (Auto) 1.8 % (0.0-4.3) 03/08/22 05:49 Baso % (Auto) 1.4 % (0.0-1.8) 03/08/22 05:49 Lymph # (Auto) 1.5 K/mm3 (1.2-5.4) 03/08/22 05:49 [place] # (Auto) 0.5 K/mm3 (0.0-0.8) 03/08/22 05:49 Eos # (Auto) 0.1 K/mm3 (0.0-0.4) 03/08/22 05:49 Baso # (Auto) 0.1 K/mm3 (0.0-0.1) 03/08/22 05:49 Seg Neutrophils % 67.5 % (40.0-70.0) 03/08/22 05:49 Seg Neutrophils # 4.5 K/mm3 (1.8-7.7) 03/08/22 05:49 PT 22.9 Sec. (12.2-14.9) H 03/07/22 05:48 INR 1.78 (0.87-1.13) H 03/07/22 05:48 ABG pH 7.412 pH Units (7.350-7.450) 03/10/22 Unknown ABG pCO2 41.4 mm Hg 03/10/22 Unknown ABG pO2 68.8 mm Hg (80.0-90.0) L 03/10/22 Unknown ABG HCO3 25.8 mmol/L (20.0-26.0) 03/10/22 Unknown ABG O2 Saturation 94.2 % (95.0-99.0) L 03/10/22 Unknown ABG O2 Content 14.9 (0.0-44) 03/10/22 Unknown ABG Base Excess 1.1 mmol/L (-2.0-3.0) 03/10/22 Unknown ABG Hemoglobin 11.5 gm/dl (12.0-16.0) L 03/10/22 Unknown ABG Carboxyhemoglobin 1.5 % (0.0-5.0) 03/10/22 Unknown ABG Methemoglobin 0.7 % (0.0-1.5) 03/10/22 Unknown Oxyhemoglobin 92.1 % (95.0-99.0) L 03/10/22 Unknown FiO2 25 % 03/10/22 Unknown Sodium 140 mmol/L (137-145) 03/10/22 04:32 Potassium 3.5 mmol/L (3.6-5.0) L 03/10/22 04:32 Chloride 105.7 mmol/L (98-107) 03/10/22 04:32 Carbon Dioxide 25 mmol/L (22-30) 03/10/22 04:32 Anion Gap 13 mmol/L 03/10/22 04:32 BUN 31 mg/dL (7-17) H 03/10/22 04:32 Creatinine 3.4 mg/dL (0.6-1.2) H 03/10/22 04:32 Estimated GFR 14 ml/min 03/10/22 04:32 BUN/Creatinine Ratio 9 % 03/10/22 04:32 Glucose 114 mg/dL (65-100) H 03/10/22 04:32 POC Glucose 114 mg/dL (70-105) H 03/10/22 05:15 Lactic Acid 1.50 mmol/L (0.7-2.0) 03/03/22 19:44 Calcium 8.1 mg/dL (8.4-10.2) L 03/10/22 04:32 Phosphorus 2.90 mg/dL (2.5-4.5) 03/10/22 04:32 Magnesium 1.90 mg/dL (1.7-2.3) 03/10/22 04:32 Total Bilirubin 2.20 mg/dL (0.1-1.2) H 03/08/22 05:49 AST 30 units/L (5-40) 03/08/22 05:49 ALT 10 units/L (7-56) 03/08/22 05:49 Alkaline Phosphatase 99 units/L (35-129) 03/08/22 05:49 Ammonia 37.0 umol/L (25-60) 03/07/22 05:48 Total Creatine Kinase 31 units/L (30-135) 03/03/22 19:44 Troponin T 0.057 ng/mL (0.00-0.029) H 03/03/22 19:44 Total Protein 5.3 g/dL (6.3-8.2) L 03/08/22 05:49 Albumin 2.4 g/dL (3.9-5) L 03/08/22 05:49 Albumin/Globulin Ratio 0.8 % 03/08/22 05:49 Triglycerides 71 mg/dL (2-149) 03/03/22 19:44 Cholesterol 75 mg/dL (50-199) 03/03/22 19:44 LDL Cholesterol Direct 35 mg/dL (50-130) L 03/03/22 19:44 HDL Cholesterol 21 mg/dL (40-59) L 03/03/22 19:44 Cholesterol/HDL Ratio 3.57 % 03/03/22 19:44 Urine Color [place] (Yellow) 03/04/22 Unknown Urine Turbidity Clear (Clear) 03/04/22 Unknown Urine pH 5.0 (5.0-7.0) 03/04/22 Unknown Ur Specific [place] 1.013 (1.003-1.030) 03/04/22 Unknown Urine Protein <15 mg/dl mg/dL (Negative) 03/04/22 Unknown Urine Glucose (UA) Neg mg/dL (Negative) 03/04/22 Unknown Urine Ketones Neg mg/dL (Negative) 03/04/22 Unknown Urine Blood Neg (Negative) 03/04/22 Unknown Urine Nitrite Neg (Negative) 03/04/22 Unknown Urine Bilirubin Neg (Negative) 03/04/22 Unknown Urine Urobilinogen < 2.0 mg/dL (<2.0) 03/04/22 Unknown Ur Leukocyte Esterase Sm (Negative) 03/04/22 Unknown Urine WBC (Auto) 1.0 /HPF (0.0-6.0) 03/04/22 Unknown Urine RBC (Auto) 1.0 /HPF (0.0-6.0) 03/04/22 Unknown U Epithel Cells (Auto) < 1.0 /HPF (0-13.0) 03/04/22 Unknown Fluid Type Paracentesis 03/06/22 17:22 Fluid Color Yellow 03/06/22 17:22 Fluid Appearance Clear 03/06/22 17:22 Fluid WBC 30 /mm3 03/06/22 17:22 Fluid RBC 791 /mm3 03/06/22 17:22 Fluid Seg Neutrophils 7.0 % 03/06/22 17:22 Fluid Lymphocytes 62.0 % 03/06/22 17:22 Fluid Reactive Lymphs 3.0 % 03/06/22 17:22 Fluid Monocytes 28.0 % 03/06/22 17:22 Fluid Eosinophils Not Reportable 03/06/22 17:22 Fluid Basophils Not Reportable 03/06/22 17:22 Salicylates < 0.3 mg/dL (2.8-20.0) L 03/03/22 19:44 Acetaminophen 5.0 ug/mL (10.0-30.0) L 03/03/22 19:44 Plasma/Serum Alcohol < 0.01 % (0-0.07) 03/03/22 19:44 Hepatitis A IgM Ab Non-reactive (NonReactive) 03/06/22 08:41 Hep Bs Antigen Non-reactive (Negative) 03/06/22 08:41 Hep B Core IgM Ab Non-reactive (NonReactive) 03/06/22 08:41 Hepatitis C Antibody Non-reactive (NonReactive) 03/06/22 08:41 Blood Type O POSITIVE 03/03/22 20:13 Antibody Screen Negative 03/03/22 20:13 Senior/IV: Voiding Method Incontinent Active Medications - Current Medications Current Medications: Generic Name Dose Route Start Last Admin Trade Name Freq PRN Reason Stop Dose Admin Albuterol 2.5 mg 03/10/22 14:00 Albuterol 2.5 Mg/3 Ml Nebu IH TIDRT FABIEN Lipase/Protease/Amylase 1 each 03/07/22 14:23 Lipase 10,500/Protease 25,000/Amylase 43,750 (Units) Cap FEEDTUBE PRN PRN For Clogged Feeding Tube Fluoxetine HCl 20 mg 03/08/22 10:00 03/10/22 09:39 Fluoxetine 20 Mg Cap FEEDTUBE 20 mg QDAY FABIEN Administration Folic Acid 1 mg 03/08/22 10:00 03/10/22 09:39 Folic Acid 1 Mg Tab FEEDTUBE 1 mg QDAY FABIEN Administration Hydrophilic Ointment 1 applic 03/04/22 10:47 Lip Therapy Vaseline TP Q2HR PRN Dry Lips Ceftriaxone Sodium 1 gm in 50 mls @ 100 mls/hr 03/04/22 18:00 03/09/22 17:28 Rocephin/Ns 1 Gm/50 Ml IV 03/10/22 18:29 100 mls/hr Q24H FABIEN Administration Dexmedetomidine HCl 200 mcg/ 50 mls @ 3.655 mls/hr 03/07/22 10:00 03/09/22 06:05 Sodium Chloride IV 0 mcg/kg/hr TITRATE FABIEN 0 mls/hr Titration Protocol 0.2 MCG/KG/HR NORepinephrine/NS 8 MG-250 ML 8 mg in 250 mls @ 3.75 mls/hr 03/07/22 19:00 03/10/22 04:51 Norepinephrine/Ns 8 Mg-250 Ml (Double Conc) IV 0 mcg/min TITRATE FABIEN 0 mls/hr Titration Protocol 2 MCG/MIN Sodium Chloride 100 mls @ 999 mls/hr 03/09/22 08:58 Nacl 0.9% IV PETRA PRN Hypotension Lactulose 20 gm 03/08/22 10:00 03/10/22 09:38 Lactulose 20 Gm/30 Ml Oral Liqd FEEDTUBE 20 gm QDAY FABIEN Administration Lansoprazole 30 mg 03/09/22 22:00 03/10/22 09:39 Lansoprazole 30 Mg Solutab FEEDTUBE 30 mg BID FABIEN Administration Midodrine 10 mg 03/08/22 15:00 03/10/22 09:39 Midodrine 10 Mg Tab PO 10 mg TID@0800,1200,1600 FABIEN Administration Ondansetron HCl 4 mg 03/04/22 00:02 Ondansetron 4 Mg/2 Ml Inj IV Q8H PRN Nausea And Vomiting Rifaximin 550 mg 03/08/22 10:00 03/10/22 10:10 Rifaximin 550 Mg Tab FEEDTUBE 550 mg BID FABIEN Administration Simple Syrup 15 ml 03/07/22 14:23 03/07/22 17:16 Simple Syrup 15 Ml FEEDTUBE 15 ml PRN PRN Administration Hypoglycemia Simple Syrup 30 ml 03/07/22 14:23 Simple Syrup 15 Ml FEEDTUBE PRN PRN Hypoglycemia Sodium Bicarbonate 1,300 mg 03/05/22 14:00 03/10/22 09:39 Sodium Bicarbonate 650 Mg Tab PO 1,300 mg TID FABIEN Administration Sodium Bicarbonate 325 mg 03/07/22 14:23 Sodium Bicarbonate 325 Mg Tab FEEDTUBE PRN PRN For Clogged Feeding Tube Sodium Chloride 10 ml 03/04/22 10:00 03/10/22 09:39 Sodium Chloride 0.9% 10 Ml Flush Syringe IV 10 ml BID FABIEN Administration Sodium Chloride 10 ml 03/04/22 00:02 Sodium Chloride 0.9% 10 Ml Flush Syringe IV PRN PRN LINE FLUSH Thiamine HCl 100 mg 03/08/22 10:00 03/10/22 09:39 Thiamine 100 Mg Tab FEEDTUBE 100 mg QDAY FABIEN Administration Nutrition/Malnutrition Assess - Dietary Evaluation Nutrition/Malnutrition Findings: Nutrition Notes Start: 03/04/22 10:49 Freq: Status: Active Protocol: Document 03/09/22 16:44 JOSELUIS (Rec: 03/09/22 16:51 JOSELUIS [email or web address]) Nutrition Notes Initial or Follow up Brief Note Current Diagnosis Acute Kidney Injury,CKD(stage I-IV),Respiratory Failure Other Pertinent Diagnosis Hepatic EtOH Disease/Cirrhosis /Ascites, s/p UGI Bleed, Metabolic Encephal.. Current Diet TF-Nepro w/CARBSTEADY @ 35 ml/ hr (from D 03/07). Height 5 ft 4 in Weight 73.1 kg [place] Body Weight (kg) 54.54 BMI 27.6 Weight change and time frame No body weight change reported in 4 days. Weight Status Overweight Subjective/Other Information RD consult for routine F/U on TF tolerance/continuation. TF continues as prescribed, no further information available at the time, will assess at F /U. Pt continues on Mechanical Ventilation, O2 saturation @ 98%, according to Physical Assessment History notes. Percent of energy/protein needs met: Prescribed TF-Nepro w/ CARBSTEADY @ 35 ml/hr provides for energy/protein needs (1, 500 Kcal/68 g) during LOS, 103 % Kcal; 77% AA. #2 Nutrition Diagnosis Malnutrition Diagnosis Progress(for reassessment Continues documentation) #1 Nutrition Diagnosis Altered GI function Diagnosis Progress(for reassessment Continues documentation) Is patient on ventilator? Yes Is Patient Ambulatory and/or Out of Bed No REE-([place]-St. Jeor-confined to bed) 1601.220 Kcal/Kg value to use for calculation 20 Approximate Energy Requirements Using 1462 kcal/Kg Calculation Used for Recommendations Kcal/kg Additional Notes Protein: >1.2 g/Kg ABW; >88 g/ day. Fluids: 1-1.5 L/day, or as per MD. Nutrition Intervention Nutrition Support: Continue TF-Nepro w/CARBSTEADY @ 35 ml/hr. Flush: 150 ml water Q 4 hr, or as per MD. Kcal 1,500 Protein (gm) 68 Carbohydrates (gm) 134 Fat (gm) 80 Fluid (mL) 606 Fiber (gm) 11 % RDI: 103% Kcal; 77% AA. Goal #1 Provide at least 75% of energy /protein needs through Enteral Feeding during LOS. Follow-Up By: 03/16/22 Additional Comments Continue monitoring TF tolerance and BM.
[2022-03-10] MEDS: ONDANSETRON 4 MG/2 ML INJ IV PRN ×2 (16:17→23:53)
[2022-03-10] MEDS ORDERED: MORPHINE 2 MG/1 ML INJ IV ONE (16:50)
[2022-03-10] MEDS: cefTRIAXone/NS 1 GM/50 ML 1 GM/50 ML BAG IV SCH (18:27)
[2022-03-10] MEDS: ALBUTEROL 2.5 MG/3 ML NEBU IH SCH (20:56)
[2022-03-11] MEDS: MORPHINE 2 MG/1 ML INJ IV PRN ×2 (00:24→19:56)
--- NOTE | 2022-03-11 02:34 | XRay Report ---
CHEST 1 VIEW INDICATION / CLINICAL INFORMATION: follow up respiratory failure. COMPARISON: Chest x-ray 03/10/2022 FINDINGS: SUPPORT DEVICES: Stable, satisfactory device positioning. HEART / MEDIASTINUM: Stable interval appearance of the cardiomediastinal silhouette. LUNGS / PLEURA: Lungs are clear for degree of inspiration and technique utilized. BONES: No significant osseous abnormality. ADDITIONAL FINDINGS: No significant additional findings. IMPRESSION: 1. No significant change. No active process suggested. Signer Name: Mac Cortés II, MD Signed: 03/11/2022 2:29 AM Workstation Name: [id number]
[2022-03-11 06:45] LABS: Hematocrit 22.4 % (30.3-42.9); Hemoglobin 7.6 gm/dl (10.1-14.3); Mean Corpuscular HGB Conc 34 % (30-34); Mean Corpuscular Volume 96 fl (79-97); Platelet Count 33 K/mm3 (140-440); Red Blood Count 2.35 M/mm3 (3.65-5.03); Red Cell Distribution Width 26.5 % (13.2-15.2)
[2022-03-11 07:15] LABS: Calcium 8.6 mg/dL (8.4-10.2)
[2022-03-11] MEDS: ALBUTEROL 2.5 MG/3 ML NEBU IH SCH ×2 (07:56→15:50)
[2022-03-11] MEDS: THIAMINE 100 MG TAB FEEDTUBE SCH (09:46)
[2022-03-11] MEDS: LANSOPRAZOLE 30 MG SOLUTAB FEEDTUBE SCH ×2 (09:46→21:36)
[2022-03-11] MEDS: SODIUM BICARBONATE 650 MG TAB PO SCH ×3 (09:46→19:56)
[2022-03-11] MEDS: FOLIC ACID 1 MG TAB FEEDTUBE SCH (09:47)
[2022-03-11] MEDS: RIFAXIMIN 550 MG TAB FEEDTUBE SCH ×2 (09:47→21:36)
[2022-03-11] MEDS: MIDODRINE 10 MG TAB PO SCH ×3 (09:47→16:28)
[2022-03-11] MEDS: FLUoxetine 20 MG CAP FEEDTUBE SCH (09:47)
[2022-03-11] MEDS: LACTULOSE 20 GM/30 ML ORAL LIQD FEEDTUBE SCH (09:48)
--- NOTE | 2022-03-11 10:39 | Progress Note ---
Assessment and Plan 51-year-old female with known history of alcoholic liver disease, chronic kidney disease brought into the emergency room by EMS with altered mental status. She was said to have been found on the floor altered. She is nonverbal but arousable. Most of the history was gotten from the ER staff as family is not available. Upon arrival in the emergency room, patient's blood pressure was about 90/40mmhg. She was tachycardic and obviously confused. Patient had some blood in her mouth and also had some melena stool. Work up in the ER,Hemoglobin was 5.8,Hematocrit was 17.2, BUN was 86 and creatinine of 5.5, ammonia 141, troponin 0.057, toxicology screen was essentially negative. Chest x-ray shows increased pulmonary vascularity with mild to moderate interstitial pulmonary edema. No pneumothorax. CT of the abdomen and pelvis shows cirrhosis with portal hypertension including splenomegaly and large volume ascites Patient is being prepared for blood transfusion. Patient started on proton pump inhibitor and octreotide IV. Tank Terminal Gauger and the centrifugal casting machine operator on-call has been notified by the ER physician. Patient has history of daily smoking and alcohol abuse. Patient undergone EGD and reported lean base white ulcer at the GE junction without any active bleeding. No obvious associated esophageal varices found. Distal esophagitis. Diffuse portal hypertensive gastropathy changes in the gastric body. A large area of ulceration in the duodenal sweep without high risk stigmata or active bleeding found. Patient remain intubated and sedated. Patient has worsens renal function. Patient was on continuous I/V fluids. Nephrology followed on that. Eventually patient started on Hemodialysis. Patient also undergone paracentesis. Patients blood pressure was running low. Patient was on levophed. Patient started spontaneous breathing trials. Patient failed spontaneous breathing trials twice. Patient presently undergoing spontaneous breathing trial. Patient presently on pressure support 10 cm H20, FIO2 25%, PEEP 6 and O2 saturation running 100%Patient awake, following commands. Tolerating pressure support ventilation good. Obtained blood gases on pressure support 03/11/22 reported PH 7.45, PCO2 40, PO2 122, HCO3 27, O2 saturation 98% on above pressure support. Chest xray done 03/11/22 reported No active pulmonary process. Lungs are clear. Patient afebrile. No leukocytosis, Blood pressure 103/51, pulse 78, respirations 13. Decided to extubate the patient and placed on 2 litres O2. Patient is on prevacid and Norepinephrine. Recommend SCDs for DVT prophylaxis. Patient is on tube feeding. I spent critical care time of 45 minutes, reviewing the chart, review lab and chest xray results, examine the patient, talking to the nursing staff and respiratory therapy and work up plan of treatment in this critically ill patient. - Patient Problems (1) Acute respiratory failure with hypoxia Current Visit: Yes Status: Acute Plan to address problem: Patient intubated . Patient presently on pressure support ventilation, pressure support 10, FIO2 25%, PEEP 6. Obtained blood gases on pressure support 03/11/22 reported PH 7.45, PCO2 40, PO2 122, HCO3 27, O2 saturation 98% on above pressure support. Chest xray done 03/11/22 reported No active pulmonary process. Lungs are clear. Patient afebrile. No leukocytosis, Blood pressure 103/51, pulse 78, respirations 13. Planning to extubate to day. (2) Alcohol dependence Current Visit: Yes Status: Chronic Qualifiers: Substance use status: uncomplicated Qualified Code(s): F10.20 - Alcohol dependence, uncomplicated Plan to address problem: Counseled not to drik alcohol. Consider alcohol rehab. (3) Polysubstance abuse Current Visit: Yes Status: Chronic Plan to address problem: Counseled not use illegal drugs. (4) Acute encephalopathy Current Visit: Yes Status: Acute Plan to address problem: Patient more awake. Following simple commands. Patient is on Lactulose. Management as per primary care. (5) ROSEMARY (acute kidney injury) Current Visit: Yes Status: Acute Plan to address problem: Management as per nephrology. (6) Anemia Current Visit: Yes Status: Acute Plan to address problem: Received blood trasfusions. To days 03/11/22 HGB 7.6. Continue monitor H & H. If HGB drops below 7 recommend blood transfusion. (7) Upper GI bleed Current Visit: Yes Status: Acute Plan to address problem: Management as per Gastroenterology. Patient is on Prevacid. Subjective Date of service: 03/11/22 Principal diagnosis: AHRF on MVS; ABLA; UGIB; Thrombocytopenia; AMS; ETOH Abuse; ROSEMARY on HD Interval history: 51-year-old female with known history of alcoholic liver disease, chronic kidney disease brought into the emergency room by EMS with altered mental status. She was said to have been found on the floor altered. She is nonverbal but arousable. Most of the history was gotten from the ER staff as family is not available. Upon arrival in the emergency room, patient's blood pressure was about 90/40mmhg. She was tachycardic and obviously confused. Patient had some blood in her mouth and also had some melena stool. Work up in the ER,Hemoglobin was 5.8,Hematocrit was 17.2, BUN was 86 and creatinine of 5.5, ammonia 141, troponin 0.057, toxicology screen was essen tially negative. Chest x-ray shows increased pulmonary vascularity with mild to moderate interstitial pulmonary edema. No pneumothorax. CT of the abdomen and pelvis shows cirrhosis with portal hypertension including splenomegaly and large volume ascites Patient is being prepared for blood transfusion. Patient started on proton pump inhibitor and octreotide IV. Tank Terminal Gauger and the centrifugal casting machine operator on-call has been notified by the ER physician. Patient has history of daily smoking and alcohol abuse. Patient undergone EGD and reported lean base white ulcer at the GE junction without any active bleeding. No obvious associated esophageal varices found. Distal esophagitis. Diffuse portal hypertensive gastropathy changes in the gastric body. A large area of ulceration in the duodenal sweep without high risk stigmata or active bleeding found. Patient remain intubated and sedated. Patient has worsens renal function. Patient was on continuous I/V fluids. Nephrology followed on that. Eventually patient started on Hemodialysis. Patient also undergone paracentesis. Patients blood pressure was running low. Patient was on levophed. Patient started spontaneous breathing trials. Patient failed spontaneous breathing trials twice. Patient presently undergoing spontaneous breathing trial. Patient presently on pressure support 10 cm H20, FIO2 25%, PEEP 6 and O2 saturation running 100% Patient awake, following commands. Tolerating pressure support ventilation good. Obtained blood gases on pressure support 03/11/22 reported PH 7.45, PCO2 40, PO2 122, HCO3 27, O2 saturation 98% on above pressure support. Chest xray done 03/11/22 reported No active pulmonary process. Lungs are clear. Patient afebrile. No leukocytosis, Blood pressure 103/51, pulse 78, respirations 13. Decided to extubate the patient and placed on 2 litres O2. Patient is on prevacid and Norepinephrine. Recommend SCDs for DVT prophylaxis. Patient is on tube feeding. Objective Vital Signs - 12hr 07/15/22 07/15/22 07/15/22 22:46 23:00 23:16 Temperature Pulse Rate 79 78 76 Pulse Rate [ Bilateral] Pulse Rate [ From Monitor] Respiratory 20 12 20 Rate Respiratory Rate [Bilateral ] Blood Pressure 113/63 120/68 121/65 O2 Sat by Pulse 100 99 100 Oximetry 03/10/22 03/10/22 03/10/22 23:22 23:30 23:36 Temperature Pulse Rate 80 77 76 Pulse Rate [ Bilateral] Pulse Rate [ From Monitor] Respiratory 20 20 Rate Respiratory Rate [Bilateral ] Blood Pressure 111/56 114/63 122/71 O2 Sat by Pulse 100 99 100 Oximetry 03/10/22 03/11/22 03/11/22 23:46 00:00 00:16 Temperature 98.1 F Pulse Rate 80 86 78 Pulse Rate [ Bilateral] Pulse Rate [ 82 From Monitor] Respiratory 20 12 15 Rate Respiratory Rate [Bilateral ] Blood Pressure 122/71 114/62 118/63 O2 Sat by Pulse 100 100 100 Oximetry 03/11/22 03/11/22 03/11/22 00:30 00:46 01:00 Temperature Pulse Rate 80 78 79 Pulse Rate [ Bilateral] Pulse Rate [ From Monitor] Respiratory 20 20 20 Rate Respiratory Rate [Bilateral ] Blood Pressure 106/56 113/61 116/63 O2 Sat by Pulse 100 99 100 Oximetry 03/11/22 03/11/22 03/11/22 01:16 01:30 01:46 Temperature Pulse Rate 78 82 84 Pulse Rate [ Bilateral] Pulse Rate [ From Monitor] Respiratory 20 20 19 Rate Respiratory Rate [Bilateral ] Blood Pressure 112/61 112/62 100/63 O2 Sat by Pulse 99 100 100 Oximetry 03/11/22 03/11/22 03/11/22 02:00 02:16 02:30 Temperature Pulse Rate 81 85 79 Pulse Rate [ Bilateral] Pulse Rate [ From Monitor] Respiratory 20 9 L 20 Rate Respiratory Rate [Bilateral ] Blood Pressure 121/57 109/60 112/57 O2 Sat by Pulse 97 100 97 Oximetry 03/11/22 03/11/22 03/11/22 02:46 03:00 03:16 Temperature Pulse Rate 82 84 82 Pulse Rate [ Bilateral] Pulse Rate [ From Monitor] Respiratory 20 20 18 Rate Respiratory Rate [Bilateral ] Blood Pressure 112/57 109/55 117/56 O2 Sat by Pulse 100 96 100 Oximetry 03/11/22 03/11/22 03/11/22 03:30 03:46 04:00 Temperature 98.4 F Pulse Rate 77 89 87 Pulse Rate [ Bilateral] Pulse Rate [ 85 From Monitor] Respiratory 17 20 16 Rate Respiratory Rate [Bilateral ] Blood Pressure 106/60 115/53 116/56 O2 Sat by Pulse 99 98 96 Oximetry 03/11/22 03/11/22 03/11/22 04:06 04:16 04:30 Temperature Pulse Rate 75 85 80 Pulse Rate [ Bilateral] Pulse Rate [ From Monitor] Respiratory 21 15 Rate Respiratory Rate [Bilateral ] Blood Pressure 116/54 116/54 107/52 O2 Sat by Pulse 100 98 96 Oximetry 03/11/22 03/11/22 03/11/22 04:46 05:00 05:16 Temperature Pulse Rate 85 81 80 Pulse Rate [ Bilateral] Pulse Rate [ From Monitor] Respiratory 20 15 13 Rate Respiratory Rate [Bilateral ] Blood Pressure 112/50 118/53 120/66 O2 Sat by Pulse 99 98 100 Oximetry 03/11/22 03/11/22 03/11/22 05:30 05:46 06:00 Temperature Pulse Rate 87 85 81 Pulse Rate [ Bilateral] Pulse Rate [ From Monitor] Respiratory 20 20 20 Rate Respiratory Rate [Bilateral ] Blood Pressure 104/57 108/55 105/52 O2 Sat by Pulse 100 100 100 Oximetry 03/11/22 03/11/22 03/11/22 06:16 06:30 06:46 Temperature Pulse Rate 81 79 79 Pulse Rate [ Bilateral] Pulse Rate [ From Monitor] Respiratory 20 20 20 Rate Respiratory Rate [Bilateral ] Blood Pressure 105/50 115/48 100/46 O2 Sat by Pulse 99 96 99 Oximetry 03/11/22 03/11/22 03/11/22 07:00 07:45 07:50 Temperature Pulse Rate 82 80 82 Pulse Rate [ Bilateral] Pulse Rate [ From Monitor] Respiratory 19 8 L Rate Respiratory Rate [Bilateral ] Blood Pressure 101/49 100/28 105/45 O2 Sat by Pulse 96 100 100 Oximetry 03/11/22 07:56 Temperature Pulse Rate Pulse Rate [ 77 Bilateral] Pulse Rate [ From Monitor] Respiratory Rate Respiratory 20 Rate [Bilateral ] Blood Pressure O2 Sat by Pulse Oximetry Constitutional: no acute distress, alert, other (middle aged and chronically ill looking female with normal respiratory effort on pressure support ventilation.) Eyes: icteric ENT: oropharynx moist, other (ETT 24 cm RENETTA) Neck: supple, no lymphadenopathy, no JVD, other (RIJ Vascath) Effort: mildly labored Ascultation: Bilateral: diminished breath sounds Percussion: Bilateral: not dull Cardiovascular: regular rate and rhythm, other Gastrointestinal: hypoactive bowel sounds, soft, non-tender, other (distended) Integumentary: normal Extremities: no cyanosis, pink and warm, pulses normal, edema Neurologic: normal mental status, non-focal exam (grossly), pupils equal and round, CN II-XII normal Psychiatric: mood appropriate, affect normal CBC and BMP: 03/11/22 06:00 03/11/22 06:00 ABG, PT/INR, D-dimer: ABG ABG pH 7.412 pH Units (7.350-7.450) 03/10/22 Unknown ABG pCO2 41.4 mm Hg 03/10/22 Unknown ABG pO2 68.8 mm Hg (80.0-90.0) L 03/10/22 Unknown ABG O2 Saturation 94.2 % (95.0-99.0) L 03/10/22 Unknown PT/INR, D-dimer PT 22.9 Sec. (12.2-14.9) H 03/07/22 05:48 INR 1.78 (0.87-1.13) H 03/07/22 05:48 Abnormal lab findings: Abnormal Labs 03/03/22 03/03/22 03/03/22 19:44 19:44 19:44 RBC Hgb Hct MCV MCH RDW Plt Count Seg Neutrophils % Seg Neutrophils # PT 23.2 H INR 1.80 H ABG pH ABG pO2 ABG HCO3 ABG O2 Saturation ABG Base Excess ABG Hemoglobin Oxyhemoglobin Potassium Chloride Carbon Dioxide 20 L BUN 86 H Creatinine 5.5 H Glucose POC Glucose Calcium 8.0 L Magnesium Total Bilirubin 3.60 H Ammonia 141.0 H Troponin T 0.057 H Total Protein 6.1 L Albumin 2.4 L LDL Cholesterol Direct 35 L HDL Cholesterol 21 L Salicylates Acetaminophen 03/03/22 03/03/22 03/03/22 19:44 19:44 21:30 RBC Hgb Hct MCV MCH RDW Plt Count Seg Neutrophils % Seg Neutrophils # PT INR ABG pH ABG pO2 ABG HCO3 ABG O2 Saturation ABG Base Excess -3.7 L ABG Hemoglobin 5.0 L Oxyhemoglobin 94.8 L Potassium Chloride Carbon Dioxide BUN Creatinine Glucose POC Glucose Calcium Magnesium Total Bilirubin Ammonia Troponin T Total Protein Albumin LDL Cholesterol Direct HDL Cholesterol Salicylates < 0.3 L Acetaminophen 5.0 L 03/03/22 03/04/22 03/04/22 21:35 11:03 11:03 RBC 1.69 L 3.00 L Hgb 5.8 L* 9.4 L D Hct 17.2 L* 28.3 L D MCV 102 H MCH 34 H RDW 19.8 H 23.5 H Plt Count 75 L 72 L Seg Neutrophils % 71.2 H Seg Neutrophils # PT 20.7 H INR 1.57 H ABG pH ABG pO2 ABG HCO3 ABG O2 Saturation ABG Base Excess ABG Hemoglobin Oxyhemoglobin Potassium Chloride Carbon Dioxide BUN Creatinine Glucose POC Glucose Calcium Magnesium Total Bilirubin Ammonia Troponin T Total Protein Albumin LDL Cholesterol Direct HDL Cholesterol Salicylates Acetaminophen 03/04/22 03/04/22 03/04/22 11:03 12:00 15:30 RBC Hgb 9.3 L Hct 28.4 L MCV MCH RDW Plt Count Seg Neutrophils % Seg Neutrophils # PT INR ABG pH 7.301 L ABG pO2 273.8 H ABG HCO3 17.6 L ABG O2 Saturation 99.4 H ABG Base Excess -8.1 L ABG Hemoglobin 9.2 L Oxyhemoglobin Potassium Chloride Carbon Dioxide 18 L BUN 79 H Creatinine 5.0 H Glucose POC Glucose Calcium 8.3 L Magnesium Total Bilirubin Ammonia Troponin T Total Protein Albumin LDL Cholesterol Direct HDL Cholesterol Salicylates Acetaminophen 03/05/22 03/05/22 03/05/22 00:27 04:00 06:20 RBC 2.80 L Hgb 8.9 L 8.5 L Hct 27.2 L 26.7 L MCV MCH RDW 24.1 H Plt Count 93 L 94 L Seg Neutrophils % 78.7 H Seg Neutrophils # 8.6 H PT INR ABG pH 7.290 L ABG pO2 145.8 H ABG HCO3 17.9 L ABG O2 Saturation ABG Base Excess -8.0 L ABG Hemoglobin 8.8 L Oxyhemoglobin Potassium Chloride Carbon Dioxide BUN Creatinine Glucose POC Glucose Calcium Magnesium Total Bilirubin Ammonia Troponin T Total Protein Albumin LDL Cholesterol Direct HDL Cholesterol Salicylates Acetaminophen 03/05/22 03/05/22 03/05/22 06:20 06:20 06:20 RBC Hgb Hct MCV MCH RDW Plt Count Seg Neutrophils % Seg Neutrophils # PT 20.6 H INR 1.56 H ABG pH ABG pO2 ABG HCO3 ABG O2 Saturation ABG Base Excess ABG Hemoglobin Oxyhemoglobin Potassium Chloride Carbon Dioxide 16 L BUN 80 H Creatinine 5.5 H Glucose POC Glucose Calcium 8.0 L Magnesium Total Bilirubin Ammonia 73.0 H Troponin T Total Protein Albumin LDL Cholesterol Direct HDL Cholesterol Salicylates Acetaminophen 03/05/22 03/06/22 03/06/22 16:52 03:37 03:37 RBC 2.42 L Hgb 8.5 L 7.6 L Hct 25.6 L 23.1 L MCV MCH RDW 24.2 H Plt Count 74 L 64 L Seg Neutrophils % Seg Neutrophils # PT INR ABG pH ABG pO2 ABG HCO3 ABG O2 Saturation ABG Base Excess ABG Hemoglobin Oxyhemoglobin Potassium Chloride 108.9 H Carbon Dioxide 18 L BUN 81 H Creatinine 5.9 H Glucose 131 H POC Glucose Calcium 7.5 L Magnesium Total Bilirubin Ammonia Troponin T Total Protein Albumin LDL Cholesterol Direct HDL Cholesterol Salicylates Acetaminophen 03/06/22 03/06/22 03/06/22 04:55 11:50 14:30 RBC Hgb Hct MCV MCH RDW Plt Count Seg Neutrophils % Seg Neutrophils # PT 20.8 H INR 1.58 H ABG pH 7.272 L ABG pO2 103.3 H ABG HCO3 18.8 L ABG O2 Saturation ABG Base Excess -7.5 L ABG Hemoglobin 7.6 L Oxyhemoglobin Potassium Chloride Carbon Dioxide BUN Creatinine Glucose POC Glucose 140 H Calcium Magnesium Total Bilirubin Ammonia Troponin T Total Protein Albumin LDL Cholesterol Direct HDL Cholesterol Salicylates Acetaminophen 03/06/22 03/07/22 03/07/22 17:48 04:00 05:48 RBC 2.42 L Hgb 7.6 L Hct 22.7 L MCV MCH RDW 23.9 H Plt Count 44 L Seg Neutrophils % Seg Neutrophils # PT INR ABG pH ABG pO2 97.1 H ABG HCO3 ABG O2 Saturation ABG Base Excess ABG Hemoglobin 7.7 L Oxyhemoglobin Potassium Chloride Carbon Dioxide BUN Creatinine Glucose POC Glucose 126 H Calcium Magnesium Total Bilirubin Ammonia Troponin T Total Protein Albumin LDL Cholesterol Direct HDL Cholesterol Salicylates Acetaminophen 03/07/22 03/07/22 03/08/22 05:48 05:48 04:20 RBC Hgb Hct MCV MCH RDW Plt Count Seg Neutrophils % Seg Neutrophils # PT 22.9 H INR 1.78 H ABG pH ABG pO2 108.4 H ABG HCO3 ABG O2 Saturation ABG Base Excess -3.4 L ABG Hemoglobin 7.7 L Oxyhemoglobin Potassium 3.2 L Chloride Carbon Dioxide 21 L BUN 43 H Creatinine 4.3 H Glucose POC Glucose Calcium 7.8 L Magnesium 1.30 L Total Bilirubin 2.40 H Ammonia Troponin T Total Protein 5.3 L Albumin 2.1 L LDL Cholesterol Direct HDL Cholesterol Salicylates Acetaminophen 03/08/22 03/08/22 03/08/22 05:49 05:49 23:54 RBC 2.40 L Hgb 7.6 L Hct 22.5 L MCV MCH RDW 24.1 H Plt Count 54 L Seg Neutrophils % Seg Neutrophils # PT INR ABG pH ABG pO2 ABG HCO3 ABG O2 Saturation ABG Base Excess ABG Hemoglobin Oxyhemoglobin Potassium 3.4 L Chloride Carbon Dioxide 19 L BUN 46 H Creatinine 4.4 H Glucose POC Glucose 125 H Calcium 8.3 L Magnesium Total Bilirubin 2.20 H Ammonia Troponin T Total Protein 5.3 L Albumin 2.4 L LDL Cholesterol Direct HDL Cholesterol Salicylates Acetaminophen 03/09/22 03/09/22 03/09/22 04:25 05:15 05:15 RBC 2.38 L Hgb 7.6 L Hct 22.4 L MCV MCH RDW 24.9 H Plt Count 36 L Seg Neutrophils % Seg Neutrophils # PT INR ABG pH 7.496 H ABG pO2 103.8 H ABG HCO3 ABG O2 Saturation ABG Base Excess ABG Hemoglobin 7.4 L Oxyhemoglobin Potassium 3.1 L Chloride Carbon Dioxide BUN 24 H Creatinine 2.9 H Glucose 136 H POC Glucose Calcium 8.1 L Magnesium 1.50 L Total Bilirubin Ammonia Troponin T Total Protein Albumin LDL Cholesterol Direct HDL Cholesterol Salicylates Acetaminophen 03/10/22 03/10/22 03/10/22 04:32 04:32 05:15 RBC 2.42 L Hgb 7.7 L Hct 22.9 L MCV MCH RDW 26.0 H Plt Count 37 L Seg Neutrophils % Seg Neutrophils # PT INR ABG pH ABG pO2 ABG HCO3 ABG O2 Saturation ABG Base Excess ABG Hemoglobin Oxyhemoglobin Potassium 3.5 L Chloride Carbon Dioxide BUN 31 H Creatinine 3.4 H Glucose 114 H POC Glucose 114 H Calcium 8.1 L Magnesium Total Bilirubin Ammonia Troponin T Total Protein Albumin LDL Cholesterol Direct HDL Cholesterol Salicylates Acetaminophen 03/10/22 03/10/22 03/11/22 23:40 Unknown 06:00 RBC 2.35 L Hgb 7.6 L Hct 22.4 L MCV MCH 33 H RDW 26.5 H Plt Count 33 L Seg Neutrophils % Seg Neutrophils # PT INR ABG pH ABG pO2 68.8 L ABG HCO3 ABG O2 Saturation 94.2 L ABG Base Excess ABG Hemoglobin 11.5 L Oxyhemoglobin 92.1 L Potassium Chloride Carbon Dioxide BUN Creatinine Glucose POC Glucose 107 H Calcium Magnesium Total Bilirubin Ammonia Troponin T Total Protein Albumin LDL Cholesterol Direct HDL Cholesterol Salicylates Acetaminophen 03/11/22 06:00 RBC Hgb Hct MCV MCH RDW Plt Count Seg Neutrophils % Seg Neutrophils # PT INR ABG pH ABG pO2 ABG HCO3 ABG O2 Saturation ABG Base Excess ABG Hemoglobin Oxyhemoglobin Potassium 3.5 L Chloride Carbon Dioxide BUN 25 H Creatinine 3.0 H Glucose 107 H POC Glucose Calcium Magnesium Total Bilirubin Ammonia Troponin T Total Protein Albumin LDL Cholesterol Direct HDL Cholesterol Salicylates Acetaminophen Chest x-ray: report reviewed, image reviewed Additional Studies: CHEST 1 VIEW 03/11/22 INDICATION / CLINICAL INFORMATION: follow up respiratory failure. COMPARISON: Chest x-ray 03/10/2022 FINDINGS: SUPPORT DEVICES: Stable, satisfactory device positioning. HEART / MEDIASTINUM: Stable interval appearance of the cardiomediastinal silhouette. LUNGS / PLEURA: Lungs are clear for degree of inspiration and technique utilized. BONES: No significant osseous abnormality. ADDITIONAL FINDINGS: No significant additional findings. IMPRESSION: 1. No significant change. No active process suggested. Allied health notes reviewed: nursing
--- NOTE | 2022-03-11 13:14 | Progress Note ---
Assessment and Plan Impression * Acute kidney injury vs ROSEMARY on CKD --HD initiated at [facility] in 01/2022 * Acute hypoxic respiratory failure, s/p intubation * Cirrhosis * Anemia secondary to acute blood loss/GI bleed --s/p EGD on 03/04/2022 with distal esophageal ulcer, duodenal ulcer, portal hypertensive gastropathy. No active bleeding. * Esophageal/duodenal ulcer * Metabolic acidosis * Hypotension, secondary to ABL * Thrombocytopenia * Acute encephalopathy Plan: * No acute need for HD today * Continue MWF schedule * Adjust K bath with dialysis * Vent management per pulmonary medicine * Transfuse for hemoglobin less than 7 * Maintain MAP>65 - pressors prn * Strict I/O * Dose medications for renal function * Avoid nephrotoxins * Diet per GI/primary team Subjective Date of service: 03/11/22 Principal diagnosis: AHRF on MVS; ABLA; UGIB; Thrombocytopenia; AMS; ETOH Abuse; ROSEMARY on HD Interval history: Patient remains intubated - PS trial Objective - Vital Signs Vital signs: Vital Signs - 12hr 03/11/22 03/11/22 03/11/22 01:16 01:30 01:46 Temperature Pulse Rate 78 82 84 Pulse Rate [ Bilateral] Pulse Rate [ From Monitor] Respiratory 20 20 19 Rate Respiratory Rate [Bilateral ] Blood Pressure 112/61 112/62 100/63 O2 Sat by Pulse 99 100 100 Oximetry 03/11/22 03/11/22 03/11/22 02:00 02:16 02:30 Temperature Pulse Rate 81 85 79 Pulse Rate [ Bilateral] Pulse Rate [ From Monitor] Respiratory 20 9 L 20 Rate Respiratory Rate [Bilateral ] Blood Pressure 121/57 109/60 112/57 O2 Sat by Pulse 97 100 97 Oximetry 03/11/22 03/11/22 03/11/22 02:46 03:00 03:16 Temperature Pulse Rate 82 84 82 Pulse Rate [ Bilateral] Pulse Rate [ From Monitor] Respiratory 20 20 18 Rate Respiratory Rate [Bilateral ] Blood Pressure 112/57 109/55 117/56 O2 Sat by Pulse 100 96 100 Oximetry 03/11/22 03/11/22 03/11/22 03:30 03:46 04:00 Temperature 98.4 F Pulse Rate 77 89 87 Pulse Rate [ Bilateral] Pulse Rate [ 85 From Monitor] Respiratory 17 20 16 Rate Respiratory Rate [Bilateral ] Blood Pressure 106/60 115/53 116/56 O2 Sat by Pulse 99 98 96 Oximetry 03/11/22 03/11/22 03/11/22 04:06 04:16 04:30 Temperature Pulse Rate 75 85 80 Pulse Rate [ Bilateral] Pulse Rate [ From Monitor] Respiratory 21 15 Rate Respiratory Rate [Bilateral ] Blood Pressure 116/54 116/54 107/52 O2 Sat by Pulse 100 98 96 Oximetry 03/11/22 03/11/22 03/11/22 04:46 05:00 05:16 Temperature Pulse Rate 85 81 80 Pulse Rate [ Bilateral] Pulse Rate [ From Monitor] Respiratory 20 15 13 Rate Respiratory Rate [Bilateral ] Blood Pressure 112/50 118/53 120/66 O2 Sat by Pulse 99 98 100 Oximetry 03/11/22 03/11/22 03/11/22 05:30 05:46 06:00 Temperature Pulse Rate 87 85 81 Pulse Rate [ Bilateral] Pulse Rate [ From Monitor] Respiratory 20 20 20 Rate Respiratory Rate [Bilateral ] Blood Pressure 104/57 108/55 105/52 O2 Sat by Pulse 100 100 100 Oximetry 03/11/22 03/11/22 03/11/22 06:16 06:30 06:46 Temperature Pulse Rate 81 79 79 Pulse Rate [ Bilateral] Pulse Rate [ From Monitor] Respiratory 20 20 20 Rate Respiratory Rate [Bilateral ] Blood Pressure 105/50 115/48 100/46 O2 Sat by Pulse 99 96 99 Oximetry 03/11/22 03/11/22 03/11/22 07:00 07:16 07:30 Temperature Pulse Rate 82 81 74 Pulse Rate [ Bilateral] Pulse Rate [ From Monitor] Respiratory 19 21 20 Rate Respiratory Rate [Bilateral ] Blood Pressure 101/49 97/44 87/39 O2 Sat by Pulse 96 100 100 Oximetry 03/11/22 03/11/22 03/11/22 07:45 07:46 07:50 Temperature Pulse Rate 80 79 82 Pulse Rate [ Bilateral] Pulse Rate [ From Monitor] Respiratory 15 8 L Rate Respiratory Rate [Bilateral ] Blood Pressure 100/28 100/28 105/45 O2 Sat by Pulse 100 100 100 Oximetry 03/11/22 03/11/22 03/11/22 07:56 08:00 08:16 Temperature 97.7 F Pulse Rate 81 82 Pulse Rate [ 77 Bilateral] Pulse Rate [ From Monitor] Respiratory 19 21 Rate Respiratory 20 Rate [Bilateral ] Blood Pressure 101/51 105/49 O2 Sat by Pulse 100 99 Oximetry 03/11/22 03/11/22 03/11/22 08:30 08:46 09:00 Temperature Pulse Rate 80 87 90 Pulse Rate [ Bilateral] Pulse Rate [ From Monitor] Respiratory 12 12 12 Rate Respiratory Rate [Bilateral ] Blood Pressure 97/39 90/42 90/43 O2 Sat by Pulse 96 97 100 Oximetry 03/11/22 03/11/22 03/11/22 09:16 09:30 09:46 Temperature Pulse Rate 84 90 81 Pulse Rate [ Bilateral] Pulse Rate [ From Monitor] Respiratory 12 14 15 Rate Respiratory Rate [Bilateral ] Blood Pressure 91/45 97/47 95/47 O2 Sat by Pulse 99 98 99 Oximetry 03/11/22 03/11/22 03/11/22 10:00 10:16 10:30 Temperature Pulse Rate 85 82 82 Pulse Rate [ Bilateral] Pulse Rate [ From Monitor] Respiratory 15 14 12 Rate Respiratory Rate [Bilateral ] Blood Pressure 105/56 100/49 107/51 O2 Sat by Pulse 100 100 100 Oximetry 03/11/22 03/11/22 03/11/22 10:46 11:00 11:16 Temperature Pulse Rate 87 78 79 Pulse Rate [ Bilateral] Pulse Rate [ From Monitor] Respiratory 17 13 15 Rate Respiratory Rate [Bilateral ] Blood Pressure 96/44 103/51 93/48 O2 Sat by Pulse 100 100 100 Oximetry 03/11/22 03/11/22 03/11/22 11:30 11:33 11:46 Temperature Pulse Rate 76 80 83 Pulse Rate [ Bilateral] Pulse Rate [ From Monitor] Respiratory 9 L 13 13 Rate Respiratory Rate [Bilateral ] Blood Pressure 93/50 83/50 99/48 O2 Sat by Pulse 100 100 100 Oximetry 03/11/22 03/11/22 03/11/22 12:00 12:16 12:30 Temperature 97.5 F L Pulse Rate 77 81 84 Pulse Rate [ Bilateral] Pulse Rate [ From Monitor] Respiratory 12 11 L 17 Rate Respiratory Rate [Bilateral ] Blood Pressure 108/53 113/53 90/45 O2 Sat by Pulse 99 100 99 Oximetry - General Appearance General appearance: well-developed, well-nourished, intubated EENT: ATNC, other (ETT in plae) Respiratory: Present: Clear to Ascultation Cardiology: regular, S1S2 Gastrointestinal: normal, no tenderness, no distended Neurologic: other (awake, alert, nods head to questions) - Lab 03/11/22 06:00 03/11/22 06:00 Most recent lab results ABG pH 7.412 pH Units (7.350-7.450) 03/10/22 Unknown ABG pCO2 41.4 mm Hg 03/10/22 Unknown ABG pO2 68.8 mm Hg (80.0-90.0) L 03/10/22 Unknown ABG HCO3 25.8 mmol/L (20.0-26.0) 03/10/22 Unknown ABG O2 Saturation 94.2 % (95.0-99.0) L 03/10/22 Unknown Calcium 8.6 mg/dL (8.4-10.2) 03/11/22 06:00 Phosphorus 2.90 mg/dL (2.5-4.5) 03/10/22 04:32 Magnesium 1.90 mg/dL (1.7-2.3) 03/10/22 04:32 Medications & Allergies - Medications Allergies/Adverse Reactions: Allergies Penicillins Allergy (Verified 03/03/22 17:17) Rash Home Medications: Home Medications Medication Instructions Recorded Confirmed Last Taken Type FLUoxetine [PROzac] 20 mg PO QDAY #30 capsule 04/27/16 12/30/16 Unknown Rx Folic Acid 1 tab PO QDAY #30 tab 04/27/16 12/30/16 Unknown Rx Multivitamin Tab [Multiple Vitamin 1 each PO ONCE #30 tablet 04/27/16 12/30/16 Unknown Rx TAB (Theragran)] Thiamine [Vitamin B-1] 100 mg PO QDAY #30 tablet 04/27/16 12/30/16 Unknown Rx traZODone [Desyrel] 50 mg PO QHS #30 tab 04/27/16 12/30/16 Unknown Rx chlordiazePOXIDE [Librium] 25 mg PO Q6H #10 capsule 08/11/20 Unknown Rx Active Medications: Generic Name Dose Route Start Last Admin Trade Name Freq PRN Reason Stop Dose Admin Albuterol 2.5 mg 03/10/22 14:00 03/11/22 07:56 Albuterol 2.5 Mg/3 Ml Nebu IH 2.5 mg TIDRT FABIEN Administration Lipase/Protease/Amylase 1 each 03/07/22 14:23 Lipase 10,500/Protease 25,000/Amylase 43,750 (Units) Dr Villalobos FEEDTUBE PRN PRN For Clogged Feeding Tube Fluoxetine HCl 20 mg 03/08/22 10:00 03/11/22 09:47 Fluoxetine 20 Mg Cap FEEDTUBE 20 mg QDAY FABIEN Administration Folic Acid 1 mg 03/08/22 10:00 03/11/22 09:47 Folic Acid 1 Mg Tab FEEDTUBE 1 mg QDAY FABIEN Administration Hydrophilic Ointment 1 applic 03/04/22 10:47 Lip Therapy Vaseline TP Q2HR PRN Dry Lips Dexmedetomidine HCl 200 mcg/ 50 mls @ 3.655 mls/hr 03/07/22 10:00 03/09/22 06:05 Sodium Chloride IV 0 mcg/kg/hr TITRATE FABIEN 0 mls/hr Titration Protocol 0.2 MCG/KG/HR NORepinephrine/NS 8 MG-250 ML 8 mg in 250 mls @ 3.75 mls/hr 03/07/22 19:00 03/10/22 04:51 Norepinephrine/Ns 8 Mg-250 Ml (Double Conc) IV 0 mcg/min TITRATE FABIEN 0 mls/hr Titration Protocol 2 MCG/MIN Sodium Chloride 100 mls @ 999 mls/hr 03/09/22 08:58 Nacl 0.9% IV PETRA PRN Hypotension Lactulose 20 gm 03/08/22 10:00 03/11/22 09:48 Lactulose 20 Gm/30 Ml Oral Liqd FEEDTUBE 20 gm QDAY FABIEN Administration Lansoprazole 30 mg 03/09/22 22:00 03/11/22 09:46 Lansoprazole 30 Mg Solutab FEEDTUBE 30 mg BID FABIEN Administration Midodrine 10 mg 03/08/22 15:00 03/11/22 13:08 Midodrine 10 Mg Tab PO 10 mg TID@0800,1200,1600 FABIEN Administration Morphine Sulfate 1 mg 03/11/22 00:14 03/11/22 00:24 Morphine 2 Mg/1 Ml Inj IV 1 mg Q4H PRN Administration Pain, Moderate (4-6) Ondansetron HCl 4 mg 03/04/22 00:02 03/10/22 23:53 Ondansetron 4 Mg/2 Ml Inj IV 4 mg Q8H PRN Administration Nausea And Vomiting Rifaximin 550 mg 03/08/22 10:00 03/11/22 09:47 Rifaximin 550 Mg Tab FEEDTUBE 550 mg BID FABIEN Administration Simple Syrup 15 ml 03/07/22 14:23 03/07/22 17:16 Simple Syrup 15 Ml FEEDTUBE 15 ml PRN PRN Administration Hypoglycemia Simple Syrup 30 ml 03/07/22 14:23 Simple Syrup 15 Ml FEEDTUBE PRN PRN Hypoglycemia Sodium Bicarbonate 1,300 mg 03/05/22 14:00 03/11/22 13:08 Sodium Bicarbonate 650 Mg Tab PO 1,300 mg TID FABIEN Administration Sodium Bicarbonate 325 mg 03/07/22 14:23 Sodium Bicarbonate 325 Mg Tab FEEDTUBE PRN PRN For Clogged Feeding Tube Sodium Chloride 10 ml 03/04/22 10:00 03/11/22 09:47 Sodium Chloride 0.9% 10 Ml Flush Syringe IV 10 ml BID FABIEN Administration Sodium Chloride 10 ml 03/04/22 00:02 Sodium Chloride 0.9% 10 Ml Flush Syringe IV PRN PRN LINE FLUSH Thiamine HCl 100 mg 03/08/22 10:00 03/11/22 09:46 Thiamine 100 Mg Tab FEEDTUBE 100 mg QDAY FABIEN Administration
[2022-03-11 13:36] LABS: ABG Base Excess 3.1 mmol/L (-2.0-3.0); ABG HCO3 27.3 mmol/L (20.0-26.0); ABG Methemoglobin 0.9 % (0.0-1.5); ABG Oxygen Saturation 98.4 % (95.0-99.0); ABG PCO2 40.2 mm Hg; ABG PH 7.45 pH Units (7.350-7.450); ABG PO2 122.3 mm Hg (80.0-90.0)
--- NOTE | 2022-03-11 15:07 | Progress Note ---
<RUTHKRISTIN MariluCarmen - Last Filed: 03/11/22 15:03> Assessment and Plan Assessment and plan: This is a 51-year-old female with alcoholic liver disease, HFpEF, recent PEA arrest at [facility] (01/2022), and CKD s/p HD from recent hospitalization, admitted for Acute blood loss anemia 2/2 Upper GIB Neuro: Hepatic encephalopathy, h/o EtOH abuse -s/p Precedex drip -RASS goal 0 to -1 -Reorientation as needed -Maintain sleep-wake cycle -As needed analgesia -CT head shows no acute focal parenchymal lesion -CIWA protocol -Lactulose p.o. daily Cardiac: Hypotension -Blood pressure monitoring per protocol -s/p vasopressor support with Levophed -Midodrine 10 mg TID Respiratory: Acute hypoxic respiratory failure -CCM consulted, appreciate recommendations -Intubated on 03/04 with a 7.50 ETT at 22 the lips for EGD and extuabted today 03/11 -A.m. vent settings: Assist-control/PRVC rate 20, tidal volume 600, PEEP 6, FiO2 25% -See RT notes for titration -Supplemental oxygenation as needed -A.m. ABG and CXR noted -VAP bundle -SPO2 monitoring GI: Upper GI bleed, alcoholic liver cirrhosis with ascites -GI consulted, appreciate recommendations -Abdomen/pelvis CT without contrast shows cirrhosis with portal hypertension including splenomegaly and large volume ascites, 5.4 cm left adnexal dermoid -S/p EGD on 03/04 which showed blood in the oropharynx, clean base without ulcer at the GE junction without active bleeding, LA grade B esophagitis at the distal esophagus, retained food/fluid debris's in the gastric fundus and body, diffuse portal hypertensive gastropathy changes in the gastric body with no active bleeding, large area of ulceration in the duodenal sweep without high risk stigmata or active bleeding. -S/p PPI and octreotide drip -S/p paracentesis on 03/06 with removal of 7 Liters -24 hours + 1614 mL -PPI -NTR consulted for tube feedings -BR: Lactulose -Rifaximin : Acute on chronic renal failure -Nephrology consulted, appreciate recommendations -Monitor intake and output -HD per nephrology (MWF) -Bicarb TID -Senior catheter discontinued 03/06 -Bladder scan nightly -Renally dose medications -Avoid nephrotoxic medications -Renal ultrasound shows left renal cyst -Trend BMP ID: NAD -s/p Rocephin for 7 days -Rifaximin -f/u blood culture -Monitor WBC and temperature curve Endo: NAD -Avoid hypoglycemia -SSI -Accu-Cheks q. 6 Heme: Acute blood loss anemia -Presented with melena and hematemesis -s/p 3 units prbc and vit K -Trend CBC -Transfuse hemoglobin less than 7 -SCDs to BLE while in bed The high probability of a clinically significant, sudden or life threatening deterioration of the [multiple] system(s) required my full and direct attention, intervention and personal management. The aggregate critical care time was [60] minutes. This time is in addition to time spent performing reported procedures but includes the following: [x] Data Review and interpretation [x] Patient assessment and monitoring of vital signs [x] Documentation [x] Medication orders and management Disposition Plan: icu Total Time Spent with Patient (Minutes): 60 History Interval history: This is a 51-year-old female with EtOH cirrhosis,HFpEF, recent PEA arrest at [facility] (01/2022), CKD on HD who presented to emergency department via EMS on 03/04 with altered mental status. Upon arrival to the emergency department patient's blood pressure was 90/50, tachycardic and confused. Patient also had some blood in her mouth and melena. Work-up the emergency department revealed a H/H of 5.8/17.2, BUN/creatinine of 86/5.5, ammonia 141, tox screen essentially negative, CXR showed increased pulmonary vascularity with mild to moderate interstitial pulmonary edema with no pneumothorax and CT of the abdomen/pelvis showed cirrhosis with portal hypertension including splenomegaly and large volume ascites. Patient was started on a PPI and octreotide drip and given a blood transfusion. Patient was admitted to the hospital service with consults to GI, CCM and nephrology. Hospital course to date: 03/04: Patient had EGD. GI consult and follow-up/procedure appreciated. Patient has a clean base white ulcer at the GE junction without any active bleeding. No obvious associated esophageal varices found. Distal esophagitis. Diffuse portal hypertensive gastropathy changes in the gastric body. A large area of ulceration in the duodenal sweep without high risk stigmata or active bleeding found. 7/10: Patient remains intubated and sedated. On protonix and octreotide gtt per GI. No report of any bleeding overnight. GI recommendations noted. Worsen renal function this morning with anuria, on continuous IVF for now. Per Nephro no indication for HD at this time. Will switch IVF to D51/2NS, close monitor of BG level. Continue to monitor H&H, coags, and liver function. US paracentesis pending. D/W CCM plan to rest patient on the vent over the weekend, will attempt SAT/SBT in the am. 03-06 paracentesis completed 03-07 failed SBT; was agitated overnight (got ativan x 2) 03/08: Patient failed SBT x2, patient remained on Levophed. This afternoon she was started on hemodialysis and Levophed requirements increased. PICC line consulted for PICC placement which was okayed with nephrology. [facility] placed CVL this evening. 03/09: Patient failed SBT again this morning however she does follow commands intermittently. No acute events reported overnight. Levophed remains at 2. 03/10: CPAP today. Plan to last on CPAP as long as tolerated. Off levophed gtt. 03/11: No acute events reported overnight, remains off Levophed. Patient was extubated this afternoon. Formal speech evaluation pending. Hospitalist Physical - Constitutional Vitals: Temp Pulse Resp BP Pulse Ox 97.5 F L 80 19 112/53 100 03/11/22 12:00 03/11/22 14:15 03/11/22 14:15 03/11/22 14:15 03/11/22 14:15 General appearance: Present: no acute distress, other (Intubated and Sedated) - EENT Eyes: Present: PERRL, EOM intact ENT: hearing intact, clear oral mucosa, dentition normal - Neck Neck: Present: supple, normal ROM - Respiratory Respiratory effort: normal Respiratory: bilateral: CTA - Cardiovascular Rhythm: regular Heart Sounds: Present: S1 & S2. Absent: systolic murmur, diastolic murmur - Extremities Extremities: no ischemia, pulses intact, pulses symmetrical, normal temperature, normal color Extremity abnormal: edema Peripheral Pulses: within normal limits - Abdominal General gastrointestinal: soft, non-tender, normal bowel sounds - Integumentary Integumentary: Present: warm, dry - Psychiatric Psychiatric: cooperative - Neurologic Neurologic: CNII-XII intact, no focal deficits, moves all extremities - Allied Health Allied health notes reviewed: nursing, RT HEART Score - HEART Score Troponin: Troponin T 0.057 ng/mL (0.00-0.029) H 03/03/22 19:44 Results - Labs CBC & Chem 7: 03/11/22 06:00 03/11/22 06:00 Labs: Laboratory Last Values WBC 7.4 K/mm3 (4.5-11.0) 03/11/22 06:00 RBC 2.35 M/mm3 (3.65-5.03) L 03/11/22 06:00 Hgb 7.6 gm/dl (10.1-14.3) L 03/11/22 06:00 Hct 22.4 % (30.3-42.9) L 03/11/22 06:00 MCV 96 fl (79-97) 03/11/22 06:00 MCH 33 pg (28-32) H 03/11/22 06:00 MCHC 34 % (30-34) 03/11/22 06:00 RDW 26.5 % (13.2-15.2) H 03/11/22 06:00 Plt Count 33 K/mm3 (140-440) L 03/11/22 06:00 Lymph % (Auto) 22.0 % (13.4-35.0) 03/08/22 05:49 [place] % (Auto) 7.3 % (0.0-7.3) 03/08/22 05:49 Eos % (Auto) 1.8 % (0.0-4.3) 03/08/22 05:49 Baso % (Auto) 1.4 % (0.0-1.8) 03/08/22 05:49 Lymph # (Auto) 1.5 K/mm3 (1.2-5.4) 03/08/22 05:49 [place] # (Auto) 0.5 K/mm3 (0.0-0.8) 03/08/22 05:49 Eos # (Auto) 0.1 K/mm3 (0.0-0.4) 03/08/22 05:49 Baso # (Auto) 0.1 K/mm3 (0.0-0.1) 03/08/22 05:49 Seg Neutrophils % 67.5 % (40.0-70.0) 03/08/22 05:49 Seg Neutrophils # 4.5 K/mm3 (1.8-7.7) 03/08/22 05:49 PT 22.9 Sec. (12.2-14.9) H 03/07/22 05:48 INR 1.78 (0.87-1.13) H 03/07/22 05:48 ABG pH 7.450 pH Units (7.350-7.450) 03/11/22 13:18 ABG pCO2 40.2 mm Hg 03/11/22 13:18 ABG pO2 122.3 mm Hg (80.0-90.0) H 03/11/22 13:18 ABG HCO3 27.3 mmol/L (20.0-26.0) H 03/11/22 13:18 ABG O2 Saturation 98.4 % (95.0-99.0) 03/11/22 13:18 ABG O2 Content 10.5 (0.0-44) 03/11/22 13:18 ABG Base Excess 3.1 mmol/L (-2.0-3.0) H 03/11/22 13:18 ABG Hemoglobin 7.6 gm/dl (12.0-16.0) L 03/11/22 13:18 ABG Carboxyhemoglobin 1.7 % (0.0-5.0) 03/11/22 13:18 ABG Methemoglobin 0.9 % (0.0-1.5) 03/11/22 13:18 Oxyhemoglobin 95.8 % (95.0-99.0) 03/11/22 13:18 FiO2 25 % 03/11/22 13:18 Sodium 141 mmol/L (137-145) 03/11/22 06:00 Potassium 3.5 mmol/L (3.6-5.0) L 03/11/22 06:00 Chloride 106.5 mmol/L (98-107) 03/11/22 06:00 Carbon Dioxide 25 mmol/L (22-30) 03/11/22 06:00 Anion Gap 13 mmol/L 03/11/22 06:00 BUN 25 mg/dL (7-17) H 03/11/22 06:00 Creatinine 3.0 mg/dL (0.6-1.2) H 03/11/22 06:00 Estimated GFR 16 ml/min 03/11/22 06:00 BUN/Creatinine Ratio 8 % 03/11/22 06:00 Glucose 107 mg/dL (65-100) H 03/11/22 06:00 POC Glucose 88 mg/dL (70-105) 03/11/22 13:07 Lactic Acid 1.50 mmol/L (0.7-2.0) 03/03/22 19:44 Calcium 8.6 mg/dL (8.4-10.2) 03/11/22 06:00 Phosphorus 2.90 mg/dL (2.5-4.5) 03/10/22 04:32 Magnesium 1.90 mg/dL (1.7-2.3) 03/10/22 04:32 Total Bilirubin 2.20 mg/dL (0.1-1.2) H 03/08/22 05:49 AST 30 units/L (5-40) 03/08/22 05:49 ALT 10 units/L (7-56) 03/08/22 05:49 Alkaline Phosphatase 99 units/L (35-129) 03/08/22 05:49 Ammonia 37.0 umol/L (25-60) 03/07/22 05:48 Total Creatine Kinase 31 units/L (30-135) 03/03/22 19:44 Troponin T 0.057 ng/mL (0.00-0.029) H 03/03/22 19:44 Total Protein 5.3 g/dL (6.3-8.2) L 03/08/22 05:49 Albumin 2.4 g/dL (3.9-5) L 03/08/22 05:49 Albumin/Globulin Ratio 0.8 % 03/08/22 05:49 Triglycerides 71 mg/dL (2-149) 03/03/22 19:44 Cholesterol 75 mg/dL (50-199) 03/03/22 19:44 LDL Cholesterol Direct 35 mg/dL (50-130) L 03/03/22 19:44 HDL Cholesterol 21 mg/dL (40-59) L 03/03/22 19:44 Cholesterol/HDL Ratio 3.57 % 03/03/22 19:44 Urine Color [place] (Yellow) 03/04/22 Unknown Urine Turbidity Clear (Clear) 03/04/22 Unknown Urine pH 5.0 (5.0-7.0) 03/04/22 Unknown Ur Specific [place] 1.013 (1.003-1.030) 03/04/22 Unknown Urine Protein <15 mg/dl mg/dL (Negative) 03/04/22 Unknown Urine Glucose (UA) Neg mg/dL (Negative) 03/04/22 Unknown Urine Ketones Neg mg/dL (Negative) 03/04/22 Unknown Urine Blood Neg (Negative) 03/04/22 Unknown Urine Nitrite Neg (Negative) 03/04/22 Unknown Urine Bilirubin Neg (Negative) 03/04/22 Unknown Urine Urobilinogen < 2.0 mg/dL (<2.0) 03/04/22 Unknown Ur Leukocyte Esterase Sm (Negative) 03/04/22 Unknown Urine WBC (Auto) 1.0 /HPF (0.0-6.0) 03/04/22 Unknown Urine RBC (Auto) 1.0 /HPF (0.0-6.0) 03/04/22 Unknown U Epithel Cells (Auto) < 1.0 /HPF (0-13.0) 03/04/22 Unknown Fluid Type Paracentesis 03/06/22 17:22 Fluid Color Yellow 03/06/22 17:22 Fluid Appearance Clear 03/06/22 17:22 Fluid WBC 30 /mm3 03/06/22 17:22 Fluid RBC 791 /mm3 03/06/22 17:22 Fluid Seg Neutrophils 7.0 % 03/06/22 17:22 Fluid Lymphocytes 62.0 % 03/06/22 17:22 Fluid Reactive Lymphs 3.0 % 03/06/22 17:22 Fluid Monocytes 28.0 % 03/06/22 17:22 Fluid Eosinophils Not Reportable 03/06/22 17:22 Fluid Basophils Not Reportable 03/06/22 17:22 Salicylates < 0.3 mg/dL (2.8-20.0) L 03/03/22 19:44 Acetaminophen 5.0 ug/mL (10.0-30.0) L 03/03/22 19:44 Plasma/Serum Alcohol < 0.01 % (0-0.07) 03/03/22 19:44 Hepatitis A IgM Ab Non-reactive (NonReactive) 03/06/22 08:41 Hep Bs Antigen Non-reactive (Negative) 03/06/22 08:41 Hep B Core IgM Ab Non-reactive (NonReactive) 03/06/22 08:41 Hepatitis C Antibody Non-reactive (NonReactive) 03/06/22 08:41 Blood Type O POSITIVE 03/03/22 20:13 Antibody Screen Negative 03/03/22 20:13 Senior/IV: Voiding Method Incontinent Active Medications - Current Medications Current Medications: Generic Name Dose Route Start Last Admin Trade Name Freq PRN Reason Stop Dose Admin Albuterol 2.5 mg 03/10/22 14:00 03/11/22 07:56 Albuterol 2.5 Mg/3 Ml Nebu IH 2.5 mg TIDRT FABIEN Administration Lipase/Protease/Amylase 1 each 03/07/22 14:23 Lipase 10,500/Protease 25,000/Amylase 43,750 (Units) Cap FEEDTUBE PRN PRN For Clogged Feeding Tube Fluoxetine HCl 20 mg 03/08/22 10:00 03/11/22 09:47 Fluoxetine 20 Mg Cap FEEDTUBE 20 mg QDAY FABIEN Administration Folic Acid 1 mg 03/08/22 10:00 03/11/22 09:47 Folic Acid 1 Mg Tab FEEDTUBE 1 mg QDAY FABIEN Administration Hydrophilic Ointment 1 applic 03/04/22 10:47 Lip Therapy Vaseline TP Q2HR PRN Dry Lips Dexmedetomidine HCl 200 mcg/ 50 mls @ 3.655 mls/hr 03/07/22 10:00 03/09/22 06:05 Sodium Chloride IV 0 mcg/kg/hr TITRATE FABIEN 0 mls/hr Titration Protocol 0.2 MCG/KG/HR NORepinephrine/NS 8 MG-250 ML 8 mg in 250 mls @ 3.75 mls/hr 03/07/22 19:00 03/10/22 04:51 Norepinephrine/Ns 8 Mg-250 Ml (Double Conc) IV 0 mcg/min TITRATE FABIEN 0 mls/hr Titration Protocol 2 MCG/MIN Sodium Chloride 100 mls @ 999 mls/hr 03/09/22 08:58 Nacl 0.9% IV PETRA PRN Hypotension Lactulose 20 gm 03/08/22 10:00 03/11/22 09:48 Lactulose 20 Gm/30 Ml Oral Liqd FEEDTUBE 20 gm QDAY FABIEN Administration Lansoprazole 30 mg 03/09/22 22:00 03/11/22 09:46 Lansoprazole 30 Mg Solutab FEEDTUBE 30 mg BID FABIEN Administration Midodrine 10 mg 03/08/22 15:00 03/11/22 13:08 Midodrine 10 Mg Tab PO 10 mg TID@0800,1200,1600 FABIEN Administration Morphine Sulfate 1 mg 03/11/22 00:14 03/11/22 00:24 Morphine 2 Mg/1 Ml Inj IV 1 mg Q4H PRN Administration Pain, Moderate (4-6) Ondansetron HCl 4 mg 03/04/22 00:02 03/10/22 23:53 Ondansetron 4 Mg/2 Ml Inj IV 4 mg Q8H PRN Administration Nausea And Vomiting Rifaximin 550 mg 03/08/22 10:00 03/11/22 09:47 Rifaximin 550 Mg Tab FEEDTUBE 550 mg BID FABIEN Administration Simple Syrup 15 ml 03/07/22 14:23 03/07/22 17:16 Simple Syrup 15 Ml FEEDTUBE 15 ml PRN PRN Administration Hypoglycemia Simple Syrup 30 ml 03/07/22 14:23 Simple Syrup 15 Ml FEEDTUBE PRN PRN Hypoglycemia Sodium Bicarbonate 1,300 mg 03/05/22 14:00 03/11/22 13:08 Sodium Bicarbonate 650 Mg Tab PO 1,300 mg TID FABIEN Administration Sodium Bicarbonate 325 mg 03/07/22 14:23 Sodium Bicarbonate 325 Mg Tab FEEDTUBE PRN PRN For Clogged Feeding Tube Sodium Chloride 10 ml 03/04/22 10:00 03/11/22 09:47 Sodium Chloride 0.9% 10 Ml Flush Syringe IV 10 ml BID FABIEN Administration Sodium Chloride 10 ml 03/04/22 00:02 Sodium Chloride 0.9% 10 Ml Flush Syringe IV PRN PRN LINE FLUSH Thiamine HCl 100 mg 03/08/22 10:00 03/11/22 09:46 Thiamine 100 Mg Tab FEEDTUBE 100 mg QDAY FABIEN Administration Nutrition/Malnutrition Assess - Dietary Evaluation Nutrition/Malnutrition Findings: Nutrition Notes Start: 03/04/22 10:49 Freq: Status: Active Protocol: Document 03/09/22 16:44 JOSELUIS (Rec: 03/09/22 16:51 JOSELUIS [id number]) Nutrition Notes Initial or Follow up Brief Note Current Diagnosis Acute Kidney Injury,CKD(stage I-IV),Respiratory Failure Other Pertinent Diagnosis Hepatic EtOH Disease/Cirrhosis /Ascites, s/p UGI Bleed, Metabolic Encephal.. Current Diet TF-Nepro w/CARBSTEADY @ 35 ml/ hr (from D 03/07). Height 5 ft 4 in Weight 73.1 kg [place] Body Weight (kg) 54.54 BMI 27.6 Weight change and time frame No body weight change reported in 4 days. Weight Status Overweight Subjective/Other Information RD consult for routine F/U on TF tolerance/continuation. TF continues as prescribed, no further information available at the time, will assess at F /U. Pt continues on Mechanical Ventilation, O2 saturation @ 98%, according to Physical Assessment History notes. Percent of energy/protein needs met: Prescribed TF-Nepro w/ CARBSTEADY @ 35 ml/hr provides for energy/protein needs (1, 500 Kcal/68 g) during LOS, 103 % Kcal; 77% AA. #2 Nutrition Diagnosis Malnutrition Diagnosis Progress(for reassessment Continues documentation) #1 Nutrition Diagnosis Altered GI function Diagnosis Progress(for reassessment Continues documentation) Is patient on ventilator? Yes Is Patient Ambulatory and/or Out of Bed No REE-([facility]-confined to bed) 1601.220 Kcal/Kg value to use for calculation 20 Approximate Energy Requirements Using 1462 kcal/Kg Calculation Used for Recommendations Kcal/kg Additional Notes Protein: >1.2 g/Kg ABW; >88 g/ day. Fluids: 1-1.5 L/day, or as per MD. Nutrition Intervention Nutrition Support: Continue TF-Nepro w/CARBSTEADY @ 35 ml/hr. Flush: 150 ml water Q 4 hr, or as per MD. Kcal 1,500 Protein (gm) 68 Carbohydrates (gm) 134 Fat (gm) 80 Fluid (mL) 606 Fiber (gm) 11 % RDI: 103% Kcal; 77% AA. Goal #1 Provide at least 75% of energy /protein needs through Enteral Feeding during LOS. Follow-Up By: 03/16/22 Additional Comments Continue monitoring TF tolerance and BM. <MICHA HUERTA - Last Filed: 03/14/22 13:25> History Interval history: I saw and evaluated the patient. Discussed with the nurse practitioner and agree with their findings and plan as documented in this note. Hospitalist Physical - Constitutional Vitals: Temp Pulse Resp BP Pulse Ox 98.5 F 90 18 105/59 96 03/14/22 10:56 03/14/22 10:56 03/14/22 10:56 03/14/22 10:56 03/14/22 10:56 HEART Score - HEART Score Troponin: Troponin T 0.057 ng/mL (0.00-0.029) H 03/03/22 19:44 Results - Labs CBC & Chem 7: 03/13/22 05:47 03/13/22 05:47 Labs: Laboratory Last Values WBC 7.0 K/mm3 (4.5-11.0) 03/13/22 05:47 RBC 2.41 M/mm3 (3.65-5.03) L 03/13/22 05:47 Hgb 7.6 gm/dl (10.1-14.3) L 03/13/22 05:47 Hct 23.7 % (30.3-42.9) L 03/13/22 05:47 MCV 98 fl (79-97) H 03/13/22 05:47 MCH 32 pg (28-32) 03/13/22 05:47 MCHC 32 % (30-34) 03/13/22 05:47 RDW 26.5 % (13.2-15.2) H 03/13/22 05:47 Plt Count 52 K/mm3 (140-440) L 03/13/22 05:47 Lymph % (Auto) 22.0 % (13.4-35.0) 03/08/22 05:49 [place] % (Auto) 7.3 % (0.0-7.3) 03/08/22 05:49 Eos % (Auto) 1.8 % (0.0-4.3) 03/08/22 05:49 Baso % (Auto) 1.4 % (0.0-1.8) 03/08/22 05:49 Lymph # (Auto) 1.5 K/mm3 (1.2-5.4) 03/08/22 05:49 [place] # (Auto) 0.5 K/mm3 (0.0-0.8) 03/08/22 05:49 Eos # (Auto) 0.1 K/mm3 (0.0-0.4) 03/08/22 05:49 Baso # (Auto) 0.1 K/mm3 (0.0-0.1) 03/08/22 05:49 Add Manual Diff Complete 03/12/22 04:24 Total Counted 100 03/12/22 04:24 Seg Neutrophils % 67.5 % (40.0-70.0) 03/08/22 05:49 Seg Neuts % (Manual) 83.0 % (40.0-70.0) H 03/12/22 04:24 Band Neutrophils % 0 % 03/12/22 04:24 Lymphocytes % (Manual) 12.0 % (13.4-35.0) L 03/12/22 04:24 Reactive Lymphs % (Man) 0 % 03/12/22 04:24 Monocytes % (Manual) 3.0 % (0.0-7.3) 03/12/22 04:24 Eosinophils % (Manual) 0 % (0.0-4.3) 03/12/22 04:24 Basophils % (Manual) 2.0 % (0.0-1.8) H 03/12/22 04:24 Metamyelocytes % 0 % 03/12/22 04:24 Myelocytes % 0 % 03/12/22 04:24 Promyelocytes % 0 % 03/12/22 04:24 Blast Cells % 0 % 03/12/22 04:24 Nucleated RBC % Not Reportable 03/12/22 04:24 Seg Neutrophils # 4.5 K/mm3 (1.8-7.7) 03/08/22 05:49 Seg Neutrophils # Man 6.4 K/mm3 (1.8-7.7) 03/12/22 04:24 Band Neutrophils # 0.0 K/mm3 03/12/22 04:24 Lymphocytes # (Manual) 0.9 K/mm3 (1.2-5.4) L 03/12/22 04:24 Abs React Lymphs (Man) 0.0 K/mm3 03/12/22 04:24 Monocytes # (Manual) 0.2 K/mm3 (0.0-0.8) 03/12/22 04:24 Eosinophils # (Manual) 0.0 K/mm3 (0.0-0.4) 03/12/22 04:24 Basophils # (Manual) 0.2 K/mm3 (0.0-0.1) H 03/12/22 04:24 Metamyelocytes # 0.0 K/mm3 03/12/22 04:24 Myelocytes # 0.0 K/mm3 03/12/22 04:24 Promyelocytes # 0.0 K/mm3 03/12/22 04:24 Blast Cells # 0.0 K/mm3 03/12/22 04:24 WBC Morphology Not Reportable 03/12/22 04:24 Hypersegmented Neuts Not Reportable 03/12/22 04:24 Hyposegmented Neuts Not Reportable 03/12/22 04:24 Hypogranular Neuts Not Reportable 03/12/22 04:24 Smudge Cells Not Reportable 03/12/22 04:24 Toxic Granulation Not Reportable 03/12/22 04:24 Toxic Vacuolation Not Reportable 03/12/22 04:24 Dohle Bodies Not Reportable 03/12/22 04:24 Pelger-Huet Anomaly Not Reportable 03/12/22 04:24 Kevin Rods Not Reportable 03/12/22 04:24 Platelet Estimate Consistent w auto 03/12/22 04:24 Clumped Platelets Not Reportable 03/12/22 04:24 Plt Clumps, EDTA Not Reportable 03/12/22 04:24 Large Platelets Not Reportable 03/12/22 04:24 Giant Platelets Not Reportable 03/12/22 04:24 Platelet Satelliting Not Reportable 03/12/22 04:24 Plt Morphology Comment Not Reportable 03/12/22 04:24 RBC Morphology Not Reportable 03/12/22 04:24 Dimorphic RBCs Not Reportable 03/12/22 04:24 Polychromasia Not Reportable 03/12/22 04:24 Hypochromasia Not Reportable 03/12/22 04:24 Poikilocytosis Not Reportable 03/12/22 04:24 Anisocytosis 1+ 03/12/22 04:24 Microcytosis Not Reportable 03/12/22 04:24 Macrocytosis Not Reportable 03/12/22 04:24 Spherocytes Not Reportable 03/12/22 04:24 Pappenheimer Bodies Not Reportable 03/12/22 04:24 Sickle Cells Not Reportable 03/12/22 04:24 Target Cells Not Reportable 03/12/22 04:24 Tear Drop Cells Not Reportable 03/12/22 04:24 Ovalocytes Not Reportable 03/12/22 04:24 Helmet Cells Not Reportable 03/12/22 04:24 Johnson-Nyack Bodies Not Reportable 03/12/22 04:24 [place] Rings Not Reportable 03/12/22 04:24 [place] Cells Not Reportable 03/12/22 04:24 Bite Cells Not Reportable 03/12/22 04:24 Crenated Cell Not Reportable 03/12/22 04:24 Elliptocytes Not Reportable 03/12/22 04:24 Acanthocytes (Spur) Not Reportable 03/12/22 04:24 Rouleaux Not Reportable 03/12/22 04:24 Hemoglobin C Crystals Not Reportable 03/12/22 04:24 Schistocytes Not Reportable 03/12/22 04:24 Malaria parasites Not Reportable 03/12/22 04:24 Kiran Bodies Not Reportable 03/12/22 04:24 Hem Pathologist Commnt No 03/12/22 04:24 PT 22.9 Sec. (12.2-14.9) H 03/07/22 05:48 INR 1.78 (0.87-1.13) H 03/07/22 05:48 ABG pH 7.450 pH Units (7.350-7.450) 03/11/22 13:18 ABG pCO2 40.2 mm Hg 03/11/22 13:18 ABG pO2 122.3 mm Hg (80.0-90.0) H 03/11/22 13:18 ABG HCO3 27.3 mmol/L (20.0-26.0) H 03/11/22 13:18 ABG O2 Saturation 98.4 % (95.0-99.0) 03/11/22 13:18 ABG O2 Content 10.5 (0.0-44) 03/11/22 13:18 ABG Base Excess 3.1 mmol/L (-2.0-3.0) H 03/11/22 13:18 ABG Hemoglobin 7.6 gm/dl (12.0-16.0) L 03/11/22 13:18 ABG Carboxyhemoglobin 1.7 % (0.0-5.0) 03/11/22 13:18 ABG Methemoglobin 0.9 % (0.0-1.5) 03/11/22 13:18 Oxyhemoglobin 95.8 % (95.0-99.0) 03/11/22 13:18 FiO2 25 % 03/11/22 13:18 Sodium 136 mmol/L (137-145) L 03/13/22 05:47 Potassium 4.0 mmol/L (3.6-5.0) 03/13/22 05:47 Chloride 101.7 mmol/L (98-107) 03/13/22 05:47 Carbon Dioxide 26 mmol/L (22-30) 03/13/22 05:47 Anion Gap 12 mmol/L 03/13/22 05:47 BUN 34 mg/dL (7-17) H 03/13/22 05:47 Creatinine 3.8 mg/dL (0.6-1.2) H 03/13/22 05:47 Estimated GFR 13 ml/min 03/13/22 05:47 BUN/Creatinine Ratio 9 % 03/13/22 05:47 Glucose 94 mg/dL (65-100) 03/13/22 05:47 POC Glucose 88 mg/dL (70-105) 03/11/22 13:07 Lactic Acid 1.50 mmol/L (0.7-2.0) 03/03/22 19:44 Calcium 8.2 mg/dL (8.4-10.2) L 03/13/22 05:47 Phosphorus 2.90 mg/dL (2.5-4.5) 03/10/22 04:32 Magnesium 1.90 mg/dL (1.7-2.3) 03/10/22 04:32 Total Bilirubin 2.20 mg/dL (0.1-1.2) H 03/08/22 05:49 AST 30 units/L (5-40) 03/08/22 05:49 ALT 10 units/L (7-56) 03/08/22 05:49 Alkaline Phosphatase 99 units/L (35-129) 03/08/22 05:49 Ammonia 37.0 umol/L (25-60) 03/07/22 05:48 Total Creatine Kinase 31 units/L (30-135) 03/03/22 19:44 Troponin T 0.057 ng/mL (0.00-0.029) H 03/03/22 19:44 Total Protein 5.3 g/dL (6.3-8.2) L 03/08/22 05:49 Albumin 2.4 g/dL (3.9-5) L 03/08/22 05:49 Albumin/Globulin Ratio 0.8 % 03/08/22 05:49 Triglycerides 71 mg/dL (2-149) 03/03/22 19:44 Cholesterol 75 mg/dL (50-199) 03/03/22 19:44 LDL Cholesterol Direct 35 mg/dL (50-130) L 03/03/22 19:44 HDL Cholesterol 21 mg/dL (40-59) L 03/03/22 19:44 Cholesterol/HDL Ratio 3.57 % 03/03/22 19:44 Urine Color [place] (Yellow) 03/04/22 Unknown Urine Turbidity Clear (Clear) 03/04/22 Unknown Urine pH 5.0 (5.0-7.0) 03/04/22 Unknown Ur Specific [place] 1.013 (1.003-1.030) 03/04/22 Unknown Urine Protein <15 mg/dl mg/dL (Negative) 03/04/22 Unknown Urine Glucose (UA) Neg mg/dL (Negative) 03/04/22 Unknown Urine Ketones Neg mg/dL (Negative) 03/04/22 Unknown Urine Blood Neg (Negative) 03/04/22 Unknown Urine Nitrite Neg (Negative) 03/04/22 Unknown Urine Bilirubin Neg (Negative) 03/04/22 Unknown Urine Urobilinogen < 2.0 mg/dL (<2.0) 03/04/22 Unknown Ur Leukocyte Esterase Sm (Negative) 03/04/22 Unknown Urine WBC (Auto) 1.0 /HPF (0.0-6.0) 03/04/22 Unknown Urine RBC (Auto) 1.0 /HPF (0.0-6.0) 03/04/22 Unknown U Epithel Cells (Auto) < 1.0 /HPF (0-13.0) 03/04/22 Unknown Fluid Type Paracentesis 03/06/22 17:22 Fluid Color Yellow 03/06/22 17:22 Fluid Appearance Clear 03/06/22 17:22 Fluid WBC 30 /mm3 03/06/22 17:22 Fluid RBC 791 /mm3 03/06/22 17:22 Fluid Seg Neutrophils 7.0 % 03/06/22 17:22 Fluid Lymphocytes 62.0 % 03/06/22 17:22 Fluid Reactive Lymphs 3.0 % 03/06/22 17:22 Fluid Monocytes 28.0 % 03/06/22 17:22 Fluid Eosinophils Not Reportable 03/06/22 17:22 Fluid Basophils Not Reportable 03/06/22 17:22 Salicylates < 0.3 mg/dL (2.8-20.0) L 03/03/22 19:44 Acetaminophen 5.0 ug/mL (10.0-30.0) L 03/03/22 19:44 Plasma/Serum Alcohol < 0.01 % (0-0.07) 03/03/22 19:44 Hepatitis A IgM Ab Non-reactive (NonReactive) 03/06/22 08:41 Hep Bs Antigen Non-reactive (Negative) 03/06/22 08:41 Hep B Core IgM Ab Non-reactive (NonReactive) 03/06/22 08:41 Hepatitis C Antibody Non-reactive (NonReactive) 03/06/22 08:41 Blood Type O POSITIVE 03/03/22 20:13 Antibody Screen Negative 03/03/22 20:13 Senior/IV: Voiding Method Bedpan Active Medications - Current Medications Current Medications: Generic Name Dose Route Start Last Admin Trade Name Freq PRN Reason Stop Dose Admin Albuterol 2.5 mg 03/12/22 04:22 Albuterol 2.5 Mg/3 Ml Nebu IH Q4HRT PRN Shortness Of Breath Fluoxetine HCl 20 mg 03/13/22 10:00 03/14/22 11:04 Fluoxetine 20 Mg Cap PO 20 mg QDAY FABIEN Administration Folic Acid 1 mg 03/13/22 10:00 03/14/22 11:04 Folic Acid 1 Mg Tab PO 1 mg QDAY FABIEN Administration Hydrophilic Ointment 1 applic 03/04/22 10:47 Lip Therapy Vaseline TP Q2HR PRN Dry Lips Sodium Chloride 100 mls @ 999 mls/hr 03/09/22 08:58 Nacl 0.9% IV PETRA PRN Hypotension Lactulose 20 gm 03/13/22 10:00 03/14/22 11:04 Lactulose 20 Gm/30 Ml Oral Liqd PO Not Given QDAY FABIEN Midodrine 10 mg 03/12/22 12:00 03/14/22 08:54 Midodrine 10 Mg Tab PO 10 mg TID@0800,1200,1600 FABIEN Administration Morphine Sulfate 1 mg 03/11/22 00:14 03/12/22 21:44 Morphine 2 Mg/1 Ml Inj IV 1 mg Q4H PRN Administration Pain, Moderate (4-6) Ondansetron HCl 4 mg 03/04/22 00:02 03/10/22 23:53 Ondansetron 4 Mg/2 Ml Inj IV 4 mg Q8H PRN Administration Nausea And Vomiting Pantoprazole Sodium 40 mg 03/13/22 07:30 03/14/22 08:54 Pantoprazole 40 Mg Tab PO 40 mg QDAC FABIEN Administration Rifaximin 550 mg 03/12/22 22:00 03/14/22 11:04 Rifaximin 550 Mg Tab PO 550 mg BID FABIEN Administration Sodium Bicarbonate 1,300 mg 03/05/22 14:00 03/14/22 08:54 Sodium Bicarbonate 650 Mg Tab PO 1,300 mg TID FABIEN Administration Sodium Chloride 10 ml 03/04/22 10:00 03/14/22 11:05 Sodium Chloride 0.9% 10 Ml Flush Syringe IV 10 ml BID FABIEN Administration Sodium Chloride 10 ml 03/04/22 00:02 Sodium Chloride 0.9% 10 Ml Flush Syringe IV PRN PRN LINE FLUSH Thiamine HCl 100 mg 03/13/22 10:00 03/14/22 11:04 Thiamine 100 Mg Tab PO 100 mg QDAY FABIEN Administration Nutrition/Malnutrition Assess - Dietary Evaluation Nutrition/Malnutrition Findings: Nutrition Notes Start: 03/04/22 10:49 Freq: Status: Active Protocol: Document 03/09/22 16:44 JOSELUIS (Rec: 03/09/22 16:51 JOSELUIS [id number]) Nutrition Notes Initial or Follow up Brief Note Current Diagnosis Acute Kidney Injury,CKD(stage I-IV),Respiratory Failure Other Pertinent Diagnosis Hepatic EtOH Disease/Cirrhosis /Ascites, s/p UGI Bleed, Metabolic Encephal.. Current Diet TF-Nepro w/CARBSTEADY @ 35 ml/ hr (from D 03/07). Height 5 ft 4 in Weight 73.1 kg [place] Body Weight (kg) 54.54 BMI 27.6 Weight change and time frame No body weight change reported in 4 days. Weight Status Overweight Subjective/Other Information RD consult for routine F/U on TF tolerance/continuation. TF continues as prescribed, no further information available at the time, will assess at F /U. Pt continues on Mechanical Ventilation, O2 saturation @ 98%, according to Physical Assessment History notes. Percent of energy/protein needs met: Prescribed TF-Nepro w/ CARBSTEADY @ 35 ml/hr provides for energy/protein needs (1, 500 Kcal/68 g) during LOS, 103 % Kcal; 77% AA. #2 Nutrition Diagnosis Malnutrition Diagnosis Progress(for reassessment Continues documentation) #1 Nutrition Diagnosis Altered GI function Diagnosis Progress(for reassessment Continues documentation) Is patient on ventilator? Yes Is Patient Ambulatory and/or Out of Bed No REE-([place]-[facility] Jeor-confined to bed) 1601.220 Kcal/Kg value to use for calculation 20 Approximate Energy Requirements Using 1462 kcal/Kg Calculation Used for Recommendations Kcal/kg Additional Notes Protein: >1.2 g/Kg ABW; >88 g/ day. Fluids: 1-1.5 L/day, or as per MD. Nutrition Intervention Nutrition Support: Continue TF-Nepro w/CARBSTEADY @ 35 ml/hr. Flush: 150 ml water Q 4 hr, or as per MD. Kcal 1,500 Protein (gm) 68 Carbohydrates (gm) 134 Fat (gm) 80 Fluid (mL) 606 Fiber (gm) 11 % RDI: 103% Kcal; 77% AA. Goal #1 Provide at least 75% of energy /protein needs through Enteral Feeding during LOS. Follow-Up By: 03/16/22 Additional Comments Continue monitoring TF tolerance and BM.
[2022-03-11] MEDS ORDERED: MIDODRINE 10 MG TAB FEEDTUBE SCH (16:27)
[2022-03-12] MEDS ORDERED: ALBUTEROL 2.5 MG/3 ML NEBU IH PRN (04:22)
[2022-03-12] MEDS: ALBUTEROL 2.5 MG/3 ML NEBU IH SCH ×2 (04:24→18:39)
[2022-03-12 04:47] LABS: Hematocrit 23.7 % (30.3-42.9); Hemoglobin 7.6 gm/dl (10.1-14.3); Mean Corpuscular HGB Conc 32 % (30-34); Mean Corpuscular Volume 99 fl (79-97); Red Blood Count 2.39 M/mm3 (3.65-5.03)
[2022-03-12 04:57] LABS: Platelet Count 41 K/mm3 (140-440); Red Cell Distribution Width 26.8 % (13.2-15.2)
[2022-03-12 05:37] LABS: Calcium 8.5 mg/dL (8.4-10.2)
[2022-03-12 06:03] LABS: Anisocytosis 1+; Eosinophils % (Manual) 0 % (0.0-4.3); Platelet Estimate Consistent w Auto; Total Cells Counted 100
[2022-03-12] MEDS: FOLIC ACID 1 MG TAB FEEDTUBE SCH (10:33)
[2022-03-12] MEDS: SODIUM BICARBONATE 650 MG TAB PO SCH ×3 (10:33→20:57)
[2022-03-12] MEDS: THIAMINE 100 MG TAB FEEDTUBE SCH (10:33)
[2022-03-12] MEDS: LANSOPRAZOLE 30 MG SOLUTAB FEEDTUBE SCH (10:34)
[2022-03-12] MEDS: FLUoxetine 20 MG CAP FEEDTUBE SCH (10:34)
[2022-03-12] MEDS: LACTULOSE 20 GM/30 ML ORAL LIQD FEEDTUBE SCH (10:35)
--- NOTE | 2022-03-12 10:36 | Progress Note ---
<KRISTIN MIRANDA - Last Filed: 03/12/22 13:43> Assessment and Plan Assessment and plan: This is a 51-year-old female with alcoholic liver disease, HFpEF, recent PEA arrest at [facility] (01/2022), and CKD s/p HD from recent hospitalization, admitted for Acute blood loss anemia 2/2 Upper GIB Neuro: Hepatic encephalopathy, h/o EtOH abuse -s/p Precedex drip -Reorientation as needed -Maintain sleep-wake cycle -As needed analgesia -CT head shows no acute focal parenchymal lesion -CIWA protocol -Lactulose p.o. daily Cardiac: Hypotension (improved) -Blood pressure monitoring per protocol -s/p vasopressor support with Levophed -Midodrine 10 mg TID Respiratory: Acute hypoxic respiratory failure -[facility] consulted, appreciate recommendations -Intubated on 03/04 with a 7.50 ETT at 22 the lips for EGD and extubated 03/11 -Supplemental oxygenation as needed -Pulmonary hygiene -SPO2 monitoring GI: Upper GI bleed (resolved), alcoholic liver cirrhosis with ascites -GI consulted, appreciate recommendations -Abdomen/pelvis CT without contrast shows cirrhosis with portal hypertension including splenomegaly and large volume ascites, 5.4 cm left adnexal dermoid -S/p EGD on 03/04 which showed blood in the oropharynx, clean base without ulcer at the GE junction without active bleeding, LA grade B esophagitis at the distal esophagus, retained food/fluid debris's in the gastric fundus and body, diffuse portal hypertensive gastropathy changes in the gastric body with no active bleeding, large area of ulceration in the duodenal sweep without high risk stigmata or active bleeding. -S/p PPI and octreotide drip -S/p paracentesis on 03/06 with removal of 7 Liters -24 hours + 1210 mL -PPI -Passed beside swallow eval->awaiting ST eval -BR: Lactulose -Rifaximin : Acute on chronic renal failure -Nephrology consulted, appreciate recommendations -Monitor intake and output -HD per nephrology (MWF) -Bicarb TID -Senior catheter discontinued 03/06 -Bladder scan nightly -Renally dose medications -Avoid nephrotoxic medications -Renal ultrasound shows left renal cyst -Trend BMP ID: NAD -s/p Rocephin for 7 days -Rifaximin -f/u blood culture -Monitor WBC and temperature curve Endo: NAD -Avoid hypoglycemia -SSI -Accu-Cheks q. 6 Heme: Acute blood loss anemia -Presented with melena and hematemesis -s/p 3 units prbc and vit K -Trend CBC -Transfuse hemoglobin less than 7 -SCDs to BLE while in bed The high probability of a clinically significant, sudden or life threatening deterioration of the [multiple] system(s) required my full and direct attention, intervention and personal management. The aggregate critical care time was [60] minutes. This time is in addition to time spent performing reported procedures but includes the following: [x] Data Review and interpretation [x] Patient assessment and monitoring of vital signs [x] Documentation [x] Medication orders and management Disposition Plan: transfer to floor Total Time Spent with Patient (Minutes): 60 History Interval history: This is a 51-year-old female with EtOH cirrhosis,HFpEF, recent PEA arrest at [facility] (01/2022), CKD on HD who presented to emergency department via EMS on 03/04 with altered mental status. Upon arrival to the emergency department patient's blood pressure was 90/50, tachycardic and confused. Patient also had some blood in her mouth and melena. Work-up the emergency department revealed a H/H of 5.8/17.2, BUN/creatinine of 86/5.5, ammonia 141, tox screen essentially negative, CXR showed increased pulmonary vascularity with mild to moderate interstitial pulmonary edema with no pneumothorax and CT of the abdomen/pelvis showed cirrhosis with portal hypertension including splenomegaly and large volume ascites. Patient was started on a PPI and octreotide drip and given a blood transfusion. Patient was admitted to the hospital service with consults to GI, CCM and nephrology. Hospital course to date: 03/04: Patient had EGD. GI consult and follow-up/procedure appreciated. Patient has a clean base white ulcer at the GE junction without any active bleeding. No obvious associated esophageal varices found. Distal esophagitis. Diffuse portal hypertensive gastropathy changes in the gastric body. A large area of ulceration in the duodenal sweep without high risk stigmata or active bleeding found. 03/05: Patient remains intubated and sedated. On protonix and octreotide gtt per GI. No report of any bleeding overnight. GI recommendations noted. Worsen renal function this morning with anuria, on continuous IVF for now. Per Nephro no indication for HD at this time. Will switch IVF to D51/2NS, close monitor of BG level. Continue to monitor H&H, coags, and liver function. US paracentesis pending. D/W CCM plan to rest patient on the vent over the weekend, will attempt SAT/SBT in the am. 03-06 paracentesis completed 03-07 failed SBT; was agitated overnight (got ativan x 2) 03/08: Patient failed SBT x2, patient remained on Levophed. This afternoon she was started on hemodialysis and Levophed requirements increased. PICC line consulted for PICC placement which was okayed with nephrology. CCM placed CVL this evening. 03/09: Patient failed SBT again this morning however she does follow commands intermittently. No acute events reported overnight. Levophed remains at 2. 03/10: CPAP today. Plan to last on CPAP as long as tolerated. Off levophed gtt. 03/11: No acute events reported overnight, remains off Levophed. Patient was extubated this afternoon. Formal speech evaluation pending. 03/12: Passed bedside swallow eval yesterday, remains off levophed, reamins on RA to NC. Producing 2-3 BM per day Hospitalist Physical - Constitutional Vitals: Temp Pulse Resp BP Pulse Ox 98.1 F 75 17 97/52 100 03/12/22 07:48 03/12/22 06:00 03/12/22 06:00 03/12/22 06:00 03/12/22 07:51 General appearance: Present: no acute distress, other (Intubated and Sedated) - EENT Eyes: Present: PERRL, EOM intact ENT: hearing intact, clear oral mucosa - Neck Neck: Present: normal ROM - Respiratory Respiratory effort: normal Respiratory: bilateral: CTA, diminished - Cardiovascular Rhythm: regular Heart Sounds: Present: S1 & S2. Absent: systolic murmur, diastolic murmur - Extremities Extremities: no ischemia, pulses intact, pulses symmetrical, normal temperature, normal color Peripheral Pulses: within normal limits - Abdominal General gastrointestinal: soft, non-tender, non-distended, normal bowel sounds - Integumentary Integumentary: Present: warm, dry - Psychiatric Psychiatric: cooperative - Neurologic Neurologic: CNII-XII intact, no focal deficits, moves all extremities - Allied Health Allied health notes reviewed: nursing, RT HEART Score - HEART Score Troponin: Troponin T 0.057 ng/mL (0.00-0.029) H 03/03/22 19:44 Results - Labs CBC & Chem 7: 03/12/22 04:24 03/12/22 04:24 Labs: Laboratory Last Values WBC 7.7 K/mm3 (4.5-11.0) 03/12/22 04:24 RBC 2.39 M/mm3 (3.65-5.03) L 03/12/22 04:24 Hgb 7.6 gm/dl (10.1-14.3) L 03/12/22 04:24 Hct 23.7 % (30.3-42.9) L 03/12/22 04:24 MCV 99 fl (79-97) H 03/12/22 04:24 MCH 32 pg (28-32) 03/12/22 04:24 MCHC 32 % (30-34) 03/12/22 04:24 RDW 26.8 % (13.2-15.2) H 03/12/22 04:24 Plt Count 41 K/mm3 (140-440) L 03/12/22 04:24 Lymph % (Auto) 22.0 % (13.4-35.0) 03/08/22 05:49 Towns % (Auto) 7.3 % (0.0-7.3) 03/08/22 05:49 Eos % (Auto) 1.8 % (0.0-4.3) 03/08/22 05:49 Baso % (Auto) 1.4 % (0.0-1.8) 03/08/22 05:49 Lymph # (Auto) 1.5 K/mm3 (1.2-5.4) 03/08/22 05:49 Towns # (Auto) 0.5 K/mm3 (0.0-0.8) 03/08/22 05:49 Eos # (Auto) 0.1 K/mm3 (0.0-0.4) 03/08/22 05:49 Baso # (Auto) 0.1 K/mm3 (0.0-0.1) 03/08/22 05:49 Add Manual Diff Complete 03/12/22 04:24 Total Counted 100 07/17/22 04:24 Seg Neutrophils % 67.5 % (40.0-70.0) 03/08/22 05:49 Seg Neuts % (Manual) 83.0 % (40.0-70.0) H 03/12/22 04:24 Band Neutrophils % 0 % 03/12/22 04:24 Lymphocytes % (Manual) 12.0 % (13.4-35.0) L 03/12/22 04:24 Reactive Lymphs % (Man) 0 % 03/12/22 04:24 Monocytes % (Manual) 3.0 % (0.0-7.3) 03/12/22 04:24 Eosinophils % (Manual) 0 % (0.0-4.3) 03/12/22 04:24 Basophils % (Manual) 2.0 % (0.0-1.8) H 03/12/22 04:24 Metamyelocytes % 0 % 03/12/22 04:24 Myelocytes % 0 % 03/12/22 04:24 Promyelocytes % 0 % 03/12/22 04:24 Blast Cells % 0 % 03/12/22 04:24 Nucleated RBC % Not Reportable 03/12/22 04:24 Seg Neutrophils # 4.5 K/mm3 (1.8-7.7) 03/08/22 05:49 Seg Neutrophils # Man 6.4 K/mm3 (1.8-7.7) 03/12/22 04:24 Band Neutrophils # 0.0 K/mm3 03/12/22 04:24 Lymphocytes # (Manual) 0.9 K/mm3 (1.2-5.4) L 03/12/22 04:24 Abs React Lymphs (Man) 0.0 K/mm3 03/12/22 04:24 Monocytes # (Manual) 0.2 K/mm3 (0.0-0.8) 03/12/22 04:24 Eosinophils # (Manual) 0.0 K/mm3 (0.0-0.4) 03/12/22 04:24 Basophils # (Manual) 0.2 K/mm3 (0.0-0.1) H 03/12/22 04:24 Metamyelocytes # 0.0 K/mm3 03/12/22 04:24 Myelocytes # 0.0 K/mm3 03/12/22 04:24 Promyelocytes # 0.0 K/mm3 03/12/22 04:24 Blast Cells # 0.0 K/mm3 03/12/22 04:24 WBC Morphology Not Reportable 03/12/22 04:24 Hypersegmented Neuts Not Reportable 03/12/22 04:24 Hyposegmented Neuts Not Reportable 03/12/22 04:24 Hypogranular Neuts Not Reportable 03/12/22 04:24 Smudge Cells Not Reportable 03/12/22 04:24 Toxic Granulation Not Reportable 03/12/22 04:24 Toxic Vacuolation Not Reportable 03/12/22 04:24 Dohle Bodies Not Reportable 03/12/22 04:24 Pelger-Huet Anomaly Not Reportable 03/12/22 04:24 Kevin Rods Not Reportable 03/12/22 04:24 Platelet Estimate Consistent w auto 03/12/22 04:24 Clumped Platelets Not Reportable 03/12/22 04:24 Plt Clumps, EDTA Not Reportable 03/12/22 04:24 Large Platelets Not Reportable 03/12/22 04:24 Giant Platelets Not Reportable 03/12/22 04:24 Platelet Satelliting Not Reportable 03/12/22 04:24 Plt Morphology Comment Not Reportable 03/12/22 04:24 RBC Morphology Not Reportable 03/12/22 04:24 Dimorphic RBCs Not Reportable 03/12/22 04:24 Polychromasia Not Reportable 03/12/22 04:24 Hypochromasia Not Reportable 03/12/22 04:24 Poikilocytosis Not Reportable 03/12/22 04:24 Anisocytosis 1+ 03/12/22 04:24 Microcytosis Not Reportable 03/12/22 04:24 Macrocytosis Not Reportable 03/12/22 04:24 Spherocytes Not Reportable 03/12/22 04:24 Pappenheimer Bodies Not Reportable 03/12/22 04:24 Sickle Cells Not Reportable 03/12/22 04:24 Target Cells Not Reportable 03/12/22 04:24 Tear Drop Cells Not Reportable 03/12/22 04:24 Ovalocytes Not Reportable 03/12/22 04:24 Helmet Cells Not Reportable 03/12/22 04:24 [place] Bodies Not Reportable 03/12/22 04:24 [place] Rings Not Reportable 03/12/22 04:24 [place] Cells Not Reportable 03/12/22 04:24 Bite Cells Not Reportable 03/12/22 04:24 Crenated Cell Not Reportable 03/12/22 04:24 Elliptocytes Not Reportable 03/12/22 04:24 Acanthocytes (Spur) Not Reportable 03/12/22 04:24 Rouleaux Not Reportable 03/12/22 04:24 Hemoglobin C Crystals Not Reportable 03/12/22 04:24 Schistocytes Not Reportable 03/12/22 04:24 Malaria parasites Not Reportable 03/12/22 04:24 Kiran Bodies Not Reportable 03/12/22 04:24 Hem Pathologist Commnt No 03/12/22 04:24 PT 22.9 Sec. (12.2-14.9) H 03/07/22 05:48 INR 1.78 (0.87-1.13) H 03/07/22 05:48 ABG pH 7.450 pH Units (7.350-7.450) 03/11/22 13:18 ABG pCO2 40.2 mm Hg 03/11/22 13:18 ABG pO2 122.3 mm Hg (80.0-90.0) H 03/11/22 13:18 ABG HCO3 27.3 mmol/L (20.0-26.0) H 03/11/22 13:18 ABG O2 Saturation 98.4 % (95.0-99.0) 03/11/22 13:18 ABG O2 Content 10.5 (0.0-44) 03/11/22 13:18 ABG Base Excess 3.1 mmol/L (-2.0-3.0) H 03/11/22 13:18 ABG Hemoglobin 7.6 gm/dl (12.0-16.0) L 03/11/22 13:18 ABG Carboxyhemoglobin 1.7 % (0.0-5.0) 03/11/22 13:18 ABG Methemoglobin 0.9 % (0.0-1.5) 03/11/22 13:18 Oxyhemoglobin 95.8 % (95.0-99.0) 03/11/22 13:18 FiO2 25 % 03/11/22 13:18 Sodium 139 mmol/L (137-145) 03/12/22 04:24 Potassium 3.6 mmol/L (3.6-5.0) 03/12/22 04:24 Chloride 104.2 mmol/L (98-107) 03/12/22 04:24 Carbon Dioxide 27 mmol/L (22-30) 03/12/22 04:24 Anion Gap 11 mmol/L 03/12/22 04:24 BUN 30 mg/dL (7-17) H 03/12/22 04:24 Creatinine 3.5 mg/dL (0.6-1.2) H 03/12/22 04:24 Estimated GFR 14 ml/min 03/12/22 04:24 BUN/Creatinine Ratio 9 % 03/12/22 04:24 Glucose 89 mg/dL (65-100) 03/12/22 04:24 POC Glucose 88 mg/dL (70-105) 03/11/22 13:07 Lactic Acid 1.50 mmol/L (0.7-2.0) 03/03/22 19:44 Calcium 8.5 mg/dL (8.4-10.2) 03/12/22 04:24 Phosphorus 2.90 mg/dL (2.5-4.5) 03/10/22 04:32 Magnesium 1.90 mg/dL (1.7-2.3) 03/10/22 04:32 Total Bilirubin 2.20 mg/dL (0.1-1.2) H 03/08/22 05:49 AST 30 units/L (5-40) 03/08/22 05:49 ALT 10 units/L (7-56) 03/08/22 05:49 Alkaline Phosphatase 99 units/L (35-129) 03/08/22 05:49 Ammonia 37.0 umol/L (25-60) 03/07/22 05:48 Total Creatine Kinase 31 units/L (30-135) 03/03/22 19:44 Troponin T 0.057 ng/mL (0.00-0.029) H 03/03/22 19:44 Total Protein 5.3 g/dL (6.3-8.2) L 03/08/22 05:49 Albumin 2.4 g/dL (3.9-5) L 03/08/22 05:49 Albumin/Globulin Ratio 0.8 % 03/08/22 05:49 Triglycerides 71 mg/dL (2-149) 03/03/22 19:44 Cholesterol 75 mg/dL (50-199) 03/03/22 19:44 LDL Cholesterol Direct 35 mg/dL (50-130) L 03/03/22 19:44 HDL Cholesterol 21 mg/dL (40-59) L 03/03/22 19:44 Cholesterol/HDL Ratio 3.57 % 03/03/22 19:44 Urine Color [place] (Yellow) 03/04/22 Unknown Urine Turbidity Clear (Clear) 03/04/22 Unknown Urine pH 5.0 (5.0-7.0) 03/04/22 Unknown Ur Specific [place] 1.013 (1.003-1.030) 03/04/22 Unknown Urine Protein <15 mg/dl mg/dL (Negative) 03/04/22 Unknown Urine Glucose (UA) Neg mg/dL (Negative) 03/04/22 Unknown Urine Ketones Neg mg/dL (Negative) 03/04/22 Unknown Urine Blood Neg (Negative) 03/04/22 Unknown Urine Nitrite Neg (Negative) 03/04/22 Unknown Urine Bilirubin Neg (Negative) 03/04/22 Unknown Urine Urobilinogen < 2.0 mg/dL (<2.0) 03/04/22 Unknown Ur Leukocyte Esterase Sm (Negative) 03/04/22 Unknown Urine WBC (Auto) 1.0 /HPF (0.0-6.0) 03/04/22 Unknown Urine RBC (Auto) 1.0 /HPF (0.0-6.0) 03/04/22 Unknown U Epithel Cells (Auto) < 1.0 /HPF (0-13.0) 03/04/22 Unknown Fluid Type Paracentesis 03/06/22 17:22 Fluid Color Yellow 03/06/22 17:22 Fluid Appearance Clear 03/06/22 17:22 Fluid WBC 30 /mm3 03/06/22 17:22 Fluid RBC 791 /mm3 03/06/22 17:22 Fluid Seg Neutrophils 7.0 % 03/06/22 17:22 Fluid Lymphocytes 62.0 % 03/06/22 17:22 Fluid Reactive Lymphs 3.0 % 03/06/22 17:22 Fluid Monocytes 28.0 % 03/06/22 17:22 Fluid Eosinophils Not Reportable 03/06/22 17:22 Fluid Basophils Not Reportable 03/06/22 17:22 Salicylates < 0.3 mg/dL (2.8-20.0) L 03/03/22 19:44 Acetaminophen 5.0 ug/mL (10.0-30.0) L 03/03/22 19:44 Plasma/Serum Alcohol < 0.01 % (0-0.07) 03/03/22 19:44 Hepatitis A IgM Ab Non-reactive (NonReactive) 03/06/22 08:41 Hep Bs Antigen Non-reactive (Negative) 03/06/22 08:41 Hep B Core IgM Ab Non-reactive (NonReactive) 03/06/22 08:41 Hepatitis C Antibody Non-reactive (NonReactive) 03/06/22 08:41 Blood Type O POSITIVE 03/03/22 20:13 Antibody Screen Negative 03/03/22 20:13 Senior/IV: Voiding Method Incontinent Active Medications - Current Medications Current Medications: Generic Name Dose Route Start Last Admin Trade Name Freq PRN Reason Stop Dose Admin Albuterol 2.5 mg 03/12/22 04:22 Albuterol 2.5 Mg/3 Ml Nebu IH Q4HRT PRN Shortness Of Breath Lipase/Protease/Amylase 1 each 03/07/22 14:23 Lipase 10,500/Protease 25,000/Amylase 43,750 (Units) Cap FEEDTUBE PRN PRN For Clogged Feeding Tube Fluoxetine HCl 20 mg 03/08/22 10:00 03/11/22 09:47 Fluoxetine 20 Mg Cap FEEDTUBE 20 mg QDAY FABIEN Administration Folic Acid 1 mg 03/08/22 10:00 03/11/22 09:47 Folic Acid 1 Mg Tab FEEDTUBE 1 mg QDAY FABIEN Administration Hydrophilic Ointment 1 applic 03/04/22 10:47 Lip Therapy Vaseline TP Q2HR PRN Dry Lips Dexmedetomidine HCl 200 mcg/ 50 mls @ 3.655 mls/hr 03/07/22 10:00 03/09/22 06:05 Sodium Chloride IV 0 mcg/kg/hr TITRATE FABIEN 0 mls/hr Titration Protocol 0.2 MCG/KG/HR NORepinephrine/NS 8 MG-250 ML 8 mg in 250 mls @ 3.75 mls/hr 03/07/22 19:00 03/10/22 04:51 Norepinephrine/Ns 8 Mg-250 Ml (Double Conc) IV 0 mcg/min TITRATE FABIEN 0 mls/hr Titration Protocol 2 MCG/MIN Sodium Chloride 100 mls @ 999 mls/hr 03/09/22 08:58 Nacl 0.9% IV PETRA PRN Hypotension Lactulose 20 gm 03/08/22 10:00 03/11/22 09:48 Lactulose 20 Gm/30 Ml Oral Liqd FEEDTUBE 20 gm QDAY FABIEN Administration Lansoprazole 30 mg 03/09/22 22:00 03/11/22 21:36 Lansoprazole 30 Mg Solutab FEEDTUBE 30 mg BID FABIEN Administration Midodrine 10 mg 03/11/22 16:27 Midodrine 10 Mg Tab FEEDTUBE TID@0800,1200,1600 FABIEN Morphine Sulfate 1 mg 03/11/22 00:14 03/11/22 19:56 Morphine 2 Mg/1 Ml Inj IV 1 mg Q4H PRN Administration Pain, Moderate (4-6) Ondansetron HCl 4 mg 03/04/22 00:02 03/10/22 23:53 Ondansetron 4 Mg/2 Ml Inj IV 4 mg Q8H PRN Administration Nausea And Vomiting Rifaximin 550 mg 03/08/22 10:00 03/11/22 21:36 Rifaximin 550 Mg Tab FEEDTUBE 550 mg BID FABIEN Administration Simple Syrup 15 ml 03/07/22 14:23 03/07/22 17:16 Simple Syrup 15 Ml FEEDTUBE 15 ml PRN PRN Administration Hypoglycemia Simple Syrup 30 ml 03/07/22 14:23 Simple Syrup 15 Ml FEEDTUBE PRN PRN Hypoglycemia Sodium Bicarbonate 1,300 mg 03/05/22 14:00 03/11/22 19:56 Sodium Bicarbonate 650 Mg Tab PO 1,300 mg TID FABIEN Administration Sodium Bicarbonate 325 mg 03/07/22 14:23 Sodium Bicarbonate 325 Mg Tab FEEDTUBE PRN PRN For Clogged Feeding Tube Sodium Chloride 10 ml 03/04/22 10:00 03/11/22 21:37 Sodium Chloride 0.9% 10 Ml Flush Syringe IV 10 ml BID FABIEN Administration Sodium Chloride 10 ml 03/04/22 00:02 Sodium Chloride 0.9% 10 Ml Flush Syringe IV PRN PRN LINE FLUSH Thiamine HCl 100 mg 03/08/22 10:00 03/11/22 09:46 Thiamine 100 Mg Tab FEEDTUBE 100 mg QDAY FABIEN Administration Nutrition/Malnutrition Assess - Dietary Evaluation Nutrition/Malnutrition Findings: Nutrition Notes Start: 03/04/22 10:49 Freq: Status: Active Protocol: Document 03/09/22 16:44 JOSELUIS (Rec: 03/09/22 16:51 JOSELUIS [id number]) Nutrition Notes Initial or Follow up Brief Note Current Diagnosis Acute Kidney Injury,CKD(stage I-IV),Respiratory Failure Other Pertinent Diagnosis Hepatic EtOH Disease/Cirrhosis /Ascites, s/p UGI Bleed, Metabolic Encephal.. Current Diet TF-Nepro w/CARBSTEADY @ 35 ml/ hr (from D 03/07). Height 5 ft 4 in Weight 73.1 kg [place] Body Weight (kg) 54.54 BMI 27.6 Weight change and time frame No body weight change reported in 4 days. Weight Status Overweight Subjective/Other Information RD consult for routine F/U on TF tolerance/continuation. TF continues as prescribed, no further information available at the time, will assess at F /U. Pt continues on Mechanical Ventilation, O2 saturation @ 98%, according to Physical Assessment History notes. Percent of energy/protein needs met: Prescribed TF-Nepro w/ CARBSTEADY @ 35 ml/hr provides for energy/protein needs (1, 500 Kcal/68 g) during LOS, 103 % Kcal; 77% AA. #2 Nutrition Diagnosis Malnutrition Diagnosis Progress(for reassessment Continues documentation) #1 Nutrition Diagnosis Altered GI function Diagnosis Progress(for reassessment Continues documentation) Is patient on ventilator? Yes Is Patient Ambulatory and/or Out of Bed No REE-([facility]-confined to bed) 1601.220 Kcal/Kg value to use for calculation 20 Approximate Energy Requirements Using 1462 kcal/Kg Calculation Used for Recommendations Kcal/kg Additional Notes Protein: >1.2 g/Kg ABW; >88 g/ day. Fluids: 1-1.5 L/day, or as per MD. Nutrition Intervention Nutrition Support: Continue TF-Nepro w/CARBSTEADY @ 35 ml/hr. Flush: 150 ml water Q 4 hr, or as per MD. Kcal 1,500 Protein (gm) 68 Carbohydrates (gm) 134 Fat (gm) 80 Fluid (mL) 606 Fiber (gm) 11 % RDI: 103% Kcal; 77% AA. Goal #1 Provide at least 75% of energy /protein needs through Enteral Feeding during LOS. Follow-Up By: 03/16/22 Additional Comments Continue monitoring TF tolerance and BM. <MICHA HUERTA - Last Filed: 03/14/22 13:03> History Interval history: I saw and evaluated the patient. Discussed with the nurse practitioner and agree with their findings and plan as documented in this note. Hospitalist Physical - Constitutional Vitals: Temp Pulse Resp BP Pulse Ox 98.5 F 90 18 105/59 96 03/14/22 10:56 03/14/22 10:56 03/14/22 10:56 03/14/22 10:56 03/14/22 10:56 HEART Score - HEART Score Troponin: Troponin T 0.057 ng/mL (0.00-0.029) H 03/03/22 19:44 Results - Labs CBC & Chem 7: 03/13/22 05:47 03/13/22 05:47 Labs: Laboratory Last Values WBC 7.0 K/mm3 (4.5-11.0) 03/13/22 05:47 RBC 2.41 M/mm3 (3.65-5.03) L 03/13/22 05:47 Hgb 7.6 gm/dl (10.1-14.3) L 03/13/22 05:47 Hct 23.7 % (30.3-42.9) L 03/13/22 05:47 MCV 98 fl (79-97) H 03/13/22 05:47 MCH 32 pg (28-32) 03/13/22 05:47 MCHC 32 % (30-34) 03/13/22 05:47 RDW 26.5 % (13.2-15.2) H 03/13/22 05:47 Plt Count 52 K/mm3 (140-440) L 03/13/22 05:47 Lymph % (Auto) 22.0 % (13.4-35.0) 03/08/22 05:49 Towns % (Auto) 7.3 % (0.0-7.3) 03/08/22 05:49 Eos % (Auto) 1.8 % (0.0-4.3) 03/08/22 05:49 Baso % (Auto) 1.4 % (0.0-1.8) 03/08/22 05:49 Lymph # (Auto) 1.5 K/mm3 (1.2-5.4) 03/08/22 05:49 Towns # (Auto) 0.5 K/mm3 (0.0-0.8) 03/08/22 05:49 Eos # (Auto) 0.1 K/mm3 (0.0-0.4) 03/08/22 05:49 Baso # (Auto) 0.1 K/mm3 (0.0-0.1) 03/08/22 05:49 Add Manual Diff Complete 03/12/22 04:24 Total Counted 100 03/12/22 04:24 Seg Neutrophils % 67.5 % (40.0-70.0) 03/08/22 05:49 Seg Neuts % (Manual) 83.0 % (40.0-70.0) H 03/12/22 04:24 Band Neutrophils % 0 % 03/12/22 04:24 Lymphocytes % (Manual) 12.0 % (13.4-35.0) L 03/12/22 04:24 Reactive Lymphs % (Man) 0 % 03/12/22 04:24 Monocytes % (Manual) 3.0 % (0.0-7.3) 03/12/22 04:24 Eosinophils % (Manual) 0 % (0.0-4.3) 03/12/22 04:24 Basophils % (Manual) 2.0 % (0.0-1.8) H 03/12/22 04:24 Metamyelocytes % 0 % 03/12/22 04:24 Myelocytes % 0 % 03/12/22 04:24 Promyelocytes % 0 % 03/12/22 04:24 Blast Cells % 0 % 03/12/22 04:24 Nucleated RBC % Not Reportable 03/12/22 04:24 Seg Neutrophils # 4.5 K/mm3 (1.8-7.7) 03/08/22 05:49 Seg Neutrophils # Man 6.4 K/mm3 (1.8-7.7) 03/12/22 04:24 Band Neutrophils # 0.0 K/mm3 03/12/22 04:24 Lymphocytes # (Manual) 0.9 K/mm3 (1.2-5.4) L 03/12/22 04:24 Abs React Lymphs (Man) 0.0 K/mm3 03/12/22 04:24 Monocytes # (Manual) 0.2 K/mm3 (0.0-0.8) 03/12/22 04:24 Eosinophils # (Manual) 0.0 K/mm3 (0.0-0.4) 03/12/22 04:24 Basophils # (Manual) 0.2 K/mm3 (0.0-0.1) H 03/12/22 04:24 Metamyelocytes # 0.0 K/mm3 03/12/22 04:24 Myelocytes # 0.0 K/mm3 03/12/22 04:24 Promyelocytes # 0.0 K/mm3 03/12/22 04:24 Blast Cells # 0.0 K/mm3 03/12/22 04:24 WBC Morphology Not Reportable 03/12/22 04:24 Hypersegmented Neuts Not Reportable 03/12/22 04:24 Hyposegmented Neuts Not Reportable 03/12/22 04:24 Hypogranular Neuts Not Reportable 03/12/22 04:24 Smudge Cells Not Reportable 03/12/22 04:24 Toxic Granulation Not Reportable 03/12/22 04:24 Toxic Vacuolation Not Reportable 03/12/22 04:24 Dohle Bodies Not Reportable 03/12/22 04:24 Pelger-Huet Anomaly Not Reportable 03/12/22 04:24 Kevin Rods Not Reportable 03/12/22 04:24 Platelet Estimate Consistent w auto 03/12/22 04:24 Clumped Platelets Not Reportable 03/12/22 04:24 Plt Clumps, EDTA Not Reportable 03/12/22 04:24 Large Platelets Not Reportable 03/12/22 04:24 Giant Platelets Not Reportable 03/12/22 04:24 Platelet Satelliting Not Reportable 03/12/22 04:24 Plt Morphology Comment Not Reportable 03/12/22 04:24 RBC Morphology Not Reportable 03/12/22 04:24 Dimorphic RBCs Not Reportable 03/12/22 04:24 Polychromasia Not Reportable 03/12/22 04:24 Hypochromasia Not Reportable 03/12/22 04:24 Poikilocytosis Not Reportable 03/12/22 04:24 Anisocytosis 1+ 03/12/22 04:24 Microcytosis Not Reportable 03/12/22 04:24 Macrocytosis Not Reportable 03/12/22 04:24 Spherocytes Not Reportable 03/12/22 04:24 Pappenheimer Bodies Not Reportable 03/12/22 04:24 Sickle Cells Not Reportable 03/12/22 04:24 Target Cells Not Reportable 03/12/22 04:24 Tear Drop Cells Not Reportable 03/12/22 04:24 Ovalocytes Not Reportable 03/12/22 04:24 Helmet Cells Not Reportable 03/12/22 04:24 [place] Bodies Not Reportable 03/12/22 04:24 [place] Rings Not Reportable 03/12/22 04:24 [place] Cells Not Reportable 03/12/22 04:24 Bite Cells Not Reportable 03/12/22 04:24 Crenated Cell Not Reportable 03/12/22 04:24 Elliptocytes Not Reportable 03/12/22 04:24 Acanthocytes (Spur) Not Reportable 03/12/22 04:24 Rouleaux Not Reportable 03/12/22 04:24 Hemoglobin C Crystals Not Reportable 03/12/22 04:24 Schistocytes Not Reportable 03/12/22 04:24 [place] parasites Not Reportable 03/12/22 04:24 Kiran Bodies Not Reportable 03/12/22 04:24 Hem Pathologist Commnt No 03/12/22 04:24 PT 22.9 Sec. (12.2-14.9) H 03/07/22 05:48 INR 1.78 (0.87-1.13) H 03/07/22 05:48 ABG pH 7.450 pH Units (7.350-7.450) 03/11/22 13:18 ABG pCO2 40.2 mm Hg 03/11/22 13:18 ABG pO2 122.3 mm Hg (80.0-90.0) H 03/11/22 13:18 ABG HCO3 27.3 mmol/L (20.0-26.0) H 03/11/22 13:18 ABG O2 Saturation 98.4 % (95.0-99.0) 03/11/22 13:18 ABG O2 Content 10.5 (0.0-44) 03/11/22 13:18 ABG Base Excess 3.1 mmol/L (-2.0-3.0) H 03/11/22 13:18 ABG Hemoglobin 7.6 gm/dl (12.0-16.0) L 03/11/22 13:18 ABG Carboxyhemoglobin 1.7 % (0.0-5.0) 03/11/22 13:18 ABG Methemoglobin 0.9 % (0.0-1.5) 03/11/22 13:18 Oxyhemoglobin 95.8 % (95.0-99.0) 03/11/22 13:18 FiO2 25 % 03/11/22 13:18 Sodium 136 mmol/L (137-145) L 03/13/22 05:47 Potassium 4.0 mmol/L (3.6-5.0) 03/13/22 05:47 Chloride 101.7 mmol/L (98-107) 03/13/22 05:47 Carbon Dioxide 26 mmol/L (22-30) 03/13/22 05:47 Anion Gap 12 mmol/L 03/13/22 05:47 BUN 34 mg/dL (7-17) H 03/13/22 05:47 Creatinine 3.8 mg/dL (0.6-1.2) H 03/13/22 05:47 Estimated GFR 13 ml/min 03/13/22 05:47 BUN/Creatinine Ratio 9 % 03/13/22 05:47 Glucose 94 mg/dL (65-100) 03/13/22 05:47 POC Glucose 88 mg/dL (70-105) 03/11/22 13:07 Lactic Acid 1.50 mmol/L (0.7-2.0) 03/03/22 19:44 Calcium 8.2 mg/dL (8.4-10.2) L 03/13/22 05:47 Phosphorus 2.90 mg/dL (2.5-4.5) 03/10/22 04:32 Magnesium 1.90 mg/dL (1.7-2.3) 03/10/22 04:32 Total Bilirubin 2.20 mg/dL (0.1-1.2) H 03/08/22 05:49 AST 30 units/L (5-40) 03/08/22 05:49 ALT 10 units/L (7-56) 03/08/22 05:49 Alkaline Phosphatase 99 units/L (35-129) 03/08/22 05:49 Ammonia 37.0 umol/L (25-60) 03/07/22 05:48 Total Creatine Kinase 31 units/L (30-135) 03/03/22 19:44 Troponin T 0.057 ng/mL (0.00-0.029) H 03/03/22 19:44 Total Protein 5.3 g/dL (6.3-8.2) L 03/08/22 05:49 Albumin 2.4 g/dL (3.9-5) L 03/08/22 05:49 Albumin/Globulin Ratio 0.8 % 03/08/22 05:49 Triglycerides 71 mg/dL (2-149) 03/03/22 19:44 Cholesterol 75 mg/dL (50-199) 03/03/22 19:44 LDL Cholesterol Direct 35 mg/dL (50-130) L 03/03/22 19:44 HDL Cholesterol 21 mg/dL (40-59) L 03/03/22 19:44 Cholesterol/HDL Ratio 3.57 % 03/03/22 19:44 Urine Color [place] (Yellow) 03/04/22 Unknown Urine Turbidity Clear (Clear) 03/04/22 Unknown Urine pH 5.0 (5.0-7.0) 03/04/22 Unknown Ur Specific [place] 1.013 (1.003-1.030) 03/04/22 Unknown Urine Protein <15 mg/dl mg/dL (Negative) 03/04/22 Unknown Urine Glucose (UA) Neg mg/dL (Negative) 03/04/22 Unknown Urine Ketones Neg mg/dL (Negative) 03/04/22 Unknown Urine Blood Neg (Negative) 03/04/22 Unknown Urine Nitrite Neg (Negative) 03/04/22 Unknown Urine Bilirubin Neg (Negative) 03/04/22 Unknown Urine Urobilinogen < 2.0 mg/dL (<2.0) 03/04/22 Unknown Ur Leukocyte Esterase Sm (Negative) 03/04/22 Unknown Urine WBC (Auto) 1.0 /HPF (0.0-6.0) 03/04/22 Unknown Urine RBC (Auto) 1.0 /HPF (0.0-6.0) 03/04/22 Unknown U Epithel Cells (Auto) < 1.0 /HPF (0-13.0) 03/04/22 Unknown Fluid Type Paracentesis 03/06/22 17:22 Fluid Color Yellow 03/06/22 17:22 Fluid Appearance Clear 03/06/22 17:22 Fluid WBC 30 /mm3 03/06/22 17:22 Fluid RBC 791 /mm3 03/06/22 17:22 Fluid Seg Neutrophils 7.0 % 03/06/22 17:22 Fluid Lymphocytes 62.0 % 03/06/22 17:22 Fluid Reactive Lymphs 3.0 % 03/06/22 17: Fluid Monocytes 28.0 % 03/06/22 17:22 Fluid Eosinophils Not Reportable 03/06/22 17:22 Fluid Basophils Not Reportable 03/06/22 17:22 Salicylates < 0.3 mg/dL (2.8-20.0) L 03/03/22 19:44 Acetaminophen 5.0 ug/mL (10.0-30.0) L 03/03/22 19:44 Plasma/Serum Alcohol < 0.01 % (0-0.07) 03/03/22 19:44 Hepatitis A IgM Ab Non-reactive (NonReactive) 03/06/22 08:41 Hep Bs Antigen Non-reactive (Negative) 03/06/22 08:41 Hep B Core IgM Ab Non-reactive (NonReactive) 03/06/22 08:41 Hepatitis C Antibody Non-reactive (NonReactive) 03/06/22 08:41 Blood Type O POSITIVE 03/03/22 20:13 Antibody Screen Negative 03/03/22 20:13 Senior/IV: Voiding Method Bedpan Active Medications - Current Medications Current Medications: Generic Name Dose Route Start Last Admin Trade Name Freq PRN Reason Stop Dose Admin Albuterol 2.5 mg 03/12/22 04:22 Albuterol 2.5 Mg/3 Ml Nebu IH Q4HRT PRN Shortness Of Breath Fluoxetine HCl 20 mg 03/13/22 10:00 03/14/22 11:04 Fluoxetine 20 Mg Cap PO 20 mg QDAY FABIEN Administration Folic Acid 1 mg 03/13/22 10:00 03/14/22 11:04 Folic Acid 1 Mg Tab PO 1 mg QDAY FABIEN Administration Hydrophilic Ointment 1 applic 03/04/22 10:47 Lip Therapy Vaseline TP Q2HR PRN Dry Lips Sodium Chloride 100 mls @ 999 mls/hr 03/09/22 08:58 Nacl 0.9% IV PETRA PRN Hypotension Lactulose 20 gm 03/13/22 10:00 03/14/22 11:04 Lactulose 20 Gm/30 Ml Oral Liqd PO Not Given QDAY FABIEN Midodrine 10 mg 03/12/22 12:00 03/14/22 08:54 Midodrine 10 Mg Tab PO 10 mg TID@0800,1200,1600 FABIEN Administration Morphine Sulfate 1 mg 03/11/22 00:14 03/12/22 21:44 Morphine 2 Mg/1 Ml Inj IV 1 mg Q4H PRN Administration Pain, Moderate (4-6) Ondansetron HCl 4 mg 03/04/22 00:02 03/10/22 23:53 Ondansetron 4 Mg/2 Ml Inj IV 4 mg Q8H PRN Administration Nausea And Vomiting Pantoprazole Sodium 40 mg 03/13/22 07:30 03/14/22 08:54 Pantoprazole 40 Mg Tab PO 40 mg QDAC FABIEN Administration Rifaximin 550 mg 03/12/22 22:00 03/14/22 11:04 Rifaximin 550 Mg Tab PO 550 mg BID FABIEN Administration Sodium Bicarbonate 1,300 mg 03/05/22 14:00 03/14/22 08:54 Sodium Bicarbonate 650 Mg Tab PO 1,300 mg TID FABIEN Administration Sodium Chloride 10 ml 03/04/22 10:00 03/14/22 11:05 Sodium Chloride 0.9% 10 Ml Flush Syringe IV 10 ml BID FABIEN Administration Sodium Chloride 10 ml 03/04/22 00:02 Sodium Chloride 0.9% 10 Ml Flush Syringe IV PRN PRN LINE FLUSH Thiamine HCl 100 mg 03/13/22 10:00 03/14/22 11:04 Thiamine 100 Mg Tab PO 100 mg QDAY FABIEN Administration Nutrition/Malnutrition Assess - Dietary Evaluation Nutrition/Malnutrition Findings: Nutrition Notes Start: 03/04/22 10:49 Freq: Status: Active Protocol: Document 03/09/22 16:44 JOSELUIS (Rec: 03/09/22 16:51 [id number]) Nutrition Notes Initial or Follow up Brief Note Current Diagnosis Acute Kidney Injury,CKD(stage I-IV),Respiratory Failure Other Pertinent Diagnosis Hepatic EtOH Disease/Cirrhosis /Ascites, s/p UGI Bleed, Metabolic Encephal.. Current Diet TF-Nepro w/CARBSTEADY @ 35 ml/ hr (from D 03/07). Height 5 ft 4 in Weight 73.1 kg [place] Body Weight (kg) 54.54 BMI 27.6 Weight change and time frame No body weight change reported in 4 days. Weight Status Overweight Subjective/Other Information RD consult for routine F/U on TF tolerance/continuation. TF continues as prescribed, no further information available at the time, will assess at F /U. Pt continues on Mechanical Ventilation, O2 saturation @ 98%, according to Physical Assessment History notes. Percent of energy/protein needs met: Prescribed TF-Nepro w/ CARBSTEADY @ 35 ml/hr provides for energy/protein needs (1, 500 Kcal/68 g) during LOS, 103 % Kcal; 77% AA. #2 Nutrition Diagnosis Malnutrition Diagnosis Progress(for reassessment Continues documentation) #1 Nutrition Diagnosis Altered GI function Diagnosis Progress(for reassessment Continues documentation) Is patient on ventilator? Yes Is Patient Ambulatory and/or Out of Bed No REE-([place]-confined to bed) 1601.220 Kcal/Kg value to use for calculation 20 Approximate Energy Requirements Using 1462 kcal/Kg Calculation Used for Recommendations Kcal/kg Additional Notes Protein: >1.2 g/Kg ABW; >88 g/ day. Fluids: 1-1.5 L/day, or as per MD. Nutrition Intervention Nutrition Support: Continue TF-Nepro w/CARBSTEADY @ 35 ml/hr. Flush: 150 ml water Q 4 hr, or as per MD. Kcal 1,500 Protein (gm) 68 Carbohydrates (gm) 134 Fat (gm) 80 Fluid (mL) 606 Fiber (gm) 11 % RDI: 103% Kcal; 77% AA. Goal #1 Provide at least 75% of energy /protein needs through Enteral Feeding during LOS. Follow-Up By: 03/16/22 Additional Comments Continue monitoring TF tolerance and BM.
[2022-03-12] MEDS: RIFAXIMIN 550 MG TAB FEEDTUBE SCH (10:58)
[2022-03-12] MEDS: MORPHINE 2 MG/1 ML INJ IV PRN ×2 (12:14→21:44)
[2022-03-12] MEDS: MIDODRINE 10 MG TAB PO SCH ×2 (12:16→15:04)
--- NOTE | 2022-03-12 14:00 | Progress Note ---
Assessment and Plan 51-year-old female with known history of alcoholic liver disease, chronic kidney disease brought into the emergency room by EMS with altered mental status. She was said to have been found on the floor altered. She is nonverbal but arousable. Most of the history was gotten from the ER staff as family is not available. Upon arrival in the emergency room, patient's blood pressure was about 90/40mmhg. She was tachycardic and obviously confused. Patient had some blood in her mouth and also had some melena stool. Work up in the ER,Hemoglobin was 5.8,Hematocrit was 17.2, BUN was 86 and creatinine of 5.5, ammonia 141, troponin 0.057, toxicology screen was essentially negative. Chest x-ray shows increased pulmonary vascularity with mild to moderate interstitial pulmonary edema. No pneumothorax. CT of the abdomen and pelvis shows cirrhosis with portal hypertension including splenomegaly and large volume ascites Patient is being prepared for blood transfusion. Patient started on proton pump inhibitor and octreotide IV. [employer] and the network liaison on-call has been notified by the ER physician. Patient has history of daily smoking and alcohol abuse. Patient undergone EGD and reported lean base white ulcer at the GE junction without any active bleeding. No obvious associated esophageal varices found. Distal esophagitis. Diffuse portal hypertensive gastropathy changes in the gastric body. A large area of ulceration in the duodenal sweep without high risk stigmata or active bleeding found. Patient remain intubated and sedated. Patient has worsens renal function. Patient was on continuous I/V fluids. Nephrology followed on that. Eventually patient started on Hemodialysis. Patient also undergone paracentesis. Patients blood pressure was running low. Patient was on levophed. Patient started spontaneous breathing trials. Patient failed spontaneous breathing trials twice. Patient tolerated spontaneous breathing trial good yesterday. Obtained blood gases on pressure support 03/11/22 reported PH 7.45, PCO2 40, PO2 122, HCO3 27, O2 saturation 98% on above pressure support. Chest xray done 03/11/22 reported No active pulmonary process. Lungs are clear. Patient extubated yesterday and placed on 4 litres O2. O2 saturation running 100%. Patient tolerated extubation good. Patient alert, awake. Denies chest pain, shortness of breath or cough. Patient running low grade temp at times.. No leukocytosis, Blood pressure 127/67, pulse 81, respirations 22. Patient is on protonix and albuterol inhaler. Recommend SCDs for DVT prophylaxis. Patient is on tube feeding. Patient was seen in IMCU. I spent critical care time of 35 minutes, reviewing the chart, review lab and c hest xray results, examine the patient, talking to the nursing staff and respiratory therapy and work up plan of treatment in this critically ill patient. - Patient Problems (1) Acute respiratory failure with hypoxia Current Visit: Yes Status: Acute Plan to address problem: Patient intubated . Patient presently on pressure support ventilation, pressure support 10, FIO2 25%, PEEP 6. Obtained blood gases on pressure support 03/11/22 reported PH 7.45, PCO2 40, PO2 122, HCO3 27, O2 saturation 98% on above pressure support. Chest xray done 03/11/22 reported No active pulmonary process. Lungs are clear. Patients V/S stabe. Patient extubated yesterday and placed on 4 litres O2. Patient tolerated extubation good. (2) Alcohol dependence Current Visit: Yes Status: Chronic Qualifiers: Substance use status: uncomplicated Qualified Code(s): F10.20 - Alcohol dep endence, uncomplicated Plan to address problem: Counseled not to drink alcohol. Consider alcohol rehab. (3) Polysubstance abuse Current Visit: Yes Status: Chronic Plan to address problem: Counseled not use illegal drugs. (4) Acute encephalopathy Current Visit: Yes Status: Acute Plan to address problem: Patient more awake. Following simple commands. Patient is on Lactulose. Management as per primary care. (5) ROSEMARY (acute kidney injury) Current Visit: Yes Status: Acute Plan to address problem: Management as per nephrology. (6) Anemia Current Visit: Yes Status: Acute Plan to address problem: Received blood trasfusions. To days 03/12/22 HGB 7.6. Continue monitor H & H. If HGB drops below 7 recommend blood transfusion. (7) Upper GI bleed Current Visit: Yes Status: Acute Plan to address problem: Management as per Gastroenterology. Patient is on Protonix. Subjective Date of service: 03/12/22 Principal diagnosis: AHRF on MVS; ABLA; UGIB; Thrombocytopenia; AMS; ETOH Abuse; ROSEMARY on HD Interval history: 51-year-old female with known history of alcoholic liver disease, chronic kidney disease brought into the emergency room by EMS with altered mental status. She was said to have been found on the floor altered. She is nonverbal but arousable. Most of the history was gotten from the ER staff as family is not available. Upon arrival in the emergency room, patient's blood pressure was about 90/40mmhg. She was tachycardic and obviously confused. Patient had some blood in her mouth and also had some melena stool. Work up in the ER,Hemoglobin was 5.8,Hematocrit was 17.2, BUN was 86 and creatinine of 5.5, ammonia 141, troponin 0.057, toxicology screen was essentially negative. Chest x-ray shows increased pulmonary vascularity with mild to moderate inter stitial pulmonary edema. No pneumothorax. CT of the abdomen and pelvis shows cirrhosis with portal hypertension including splenomegaly and large volume ascites Patient is being prepared for blood transfusion. Patient started on proton pump inhibitor and octreotide IV. [employer] and the network liaison on-call has been notified by the ER physician. Patient has history of daily smoking and alcohol abuse. Patient undergone EGD and reported lean base white ulcer at the GE junction without any active bleeding. No obvious associated esophageal varices found. Distal esophagitis. Diffuse portal hypertensive gastropathy changes in the gastric body. A large area of ulceration in the duodenal sweep without high risk stigmata or active bleeding found. Patient remain intubated and sedated. Patient has worsens renal function. Patient was on continuous I/V fluids. Nephrology followed on that. Eventually patient started on Hemodialysis. Patient also undergone paracentesis. Patients blood pressure was running low. Patient was on levophed. Patient started spontaneous breathing trials. Patient failed spontaneous breathing trials twice. Patient tolerated spontaneous breathing trial good yesterday. Obtained blood gases on pressure support 03/11/22 reported PH 7.45, PCO2 40, PO2 122, HCO3 27, O2 saturation 98% on above pressure support. Chest xray done 03/11/22 reported No active pulmonary process. Lungs are clear. Patient extubated yesterday and placed on 4 litres O2. O2 saturation running 100%. Patient tolerated extubation good. Patient alert, awake. Denies chest pain, shortness of breath or cough. Patient running low grade temp at times.. No leukocytosis, Blood pressure 12 7/67, pulse 81, respirations 22. Patient is on protonix and albuterol inhaler. Recommend SCDs for DVT prophylaxis. Patient is on tube feeding. Objective Vital Signs - 12hr 03/12/22 03/12/22 03/12/22 02:00 02:15 02:30 Temperature Pulse Rate 74 76 77 Pulse Rate [ From Monitor] Respiratory 16 16 19 Rate Blood Pressure 105/56 102/60 113/59 O2 Sat by Pulse 100 100 100 Oximetry 03/12/22 03/12/22 03/12/22 02:45 03:00 03:15 Temperature Pulse Rate 80 75 79 Pulse Rate [ From Monitor] Respiratory 17 12 14 Rate Blood Pressure 116/64 104/56 91/51 O2 Sat by Pulse 100 100 100 Oximetry 03/12/22 03/12/22 03/12/22 03:45 04:00 04:15 Temperature 98 F Pulse Rate 78 79 79 Pulse Rate [ 78 From Monitor] Respiratory 24 12 20 Rate Blood Pressure 93/49 100/52 94/49 O2 Sat by Pulse 100 100 100 Oximetry 03/12/22 03/12/22 03/12/22 04:17 04:30 04:45 Temperature Pulse Rate 80 86 Pulse Rate [ From Monitor] Respiratory 14 12 Rate Blood Pressure 97/55 110/58 O2 Sat by Pulse 98 100 100 Oximetry 03/12/22 03/12/22 03/12/22 05:00 05:15 05:30 Temperature Pulse Rate 77 76 77 Pulse Rate [ From Monitor] Respiratory 15 17 14 Rate Blood Pressure 108/55 108/59 97/53 O2 Sat by Pulse 100 100 100 Oximetry 03/12/22 03/12/22 03/12/22 05:45 06:00 06:15 Temperature Pulse Rate 77 75 78 Pulse Rate [ From Monitor] Respiratory 14 17 17 Rate Blood Pressure 102/53 97/52 88/55 O2 Sat by Pulse 100 100 90 Oximetry 03/12/22 03/12/22 03/12/22 06:30 06:45 07:00 Temperature Pulse Rate 78 74 77 Pulse Rate [ From Monitor] Respiratory 16 19 19 Rate Blood Pressure 100/49 103/57 112/62 O2 Sat by Pulse 97 100 100 Oximetry 03/12/22 03/12/22 03/12/22 07:15 07:30 07:45 Temperature Pulse Rate 77 77 84 Pulse Rate [ From Monitor] Respiratory 16 20 19 Rate Blood Pressure 105/56 110/57 111/63 O2 Sat by Pulse 100 100 100 Oximetry 03/12/22 03/12/22 03/12/22 07:48 07:51 08:00 Temperature 98.1 F Pulse Rate 77 Pulse Rate [ 77 From Monitor] Respiratory 15 Rate Blood Pressure 110/68 O2 Sat by Pulse 100 100 Oximetry 03/12/22 03/12/22 03/12/22 08:15 08:30 08:45 Temperature Pulse Rate 81 75 79 Pulse Rate [ From Monitor] Respiratory 16 13 14 Rate Blood Pressure 117/65 115/61 107/59 O2 Sat by Pulse 100 100 100 Oximetry 03/12/22 03/12/22 03/12/22 09:00 09:15 09:30 Temperature Pulse Rate 80 79 84 Pulse Rate [ From Monitor] Respiratory 14 13 13 Rate Blood Pressure 109/59 112/62 109/60 O2 Sat by Pulse 100 100 100 Oximetry 03/12/22 03/12/22 03/12/22 09:45 10:00 10:15 Temperature Pulse Rate 89 83 80 Pulse Rate [ From Monitor] Respiratory 14 22 17 Rate Blood Pressure 106/56 95/65 117/67 O2 Sat by Pulse 100 96 100 Oximetry 03/12/22 03/12/22 03/12/22 10:30 10:45 11:00 Temperature Pulse Rate 82 84 82 Pulse Rate [ From Monitor] Respiratory 16 14 19 Rate Blood Pressure 105/63 108/69 114/65 O2 Sat by Pulse 94 99 Oximetry 03/12/22 03/12/22 03/12/22 11:15 11:30 11:45 Temperature Pulse Rate 80 88 91 H Pulse Rate [ From Monitor] Respiratory 19 15 22 Rate Blood Pressure 106/59 108/66 118/76 O2 Sat by Pulse 100 98 91 Oximetry 03/12/22 03/12/22 03/12/22 11:51 12:00 12:15 Temperature 100.3 F H Pulse Rate 83 82 Pulse Rate [ 83 From Monitor] Respiratory 17 14 Rate Blood Pressure 113/63 103/67 O2 Sat by Pulse 100 100 Oximetry 03/12/22 03/12/22 03/12/22 12:30 12:45 13:00 Temperature Pulse Rate 82 80 78 Pulse Rate [ From Monitor] Respiratory 18 17 19 Rate Blood Pressure 118/67 120/63 118/64 O2 Sat by Pulse 100 100 100 Oximetry 03/12/22 13:15 Temperature Pulse Rate 81 Pulse Rate [ From Monitor] Respiratory 22 Rate Blood Pressure 127/67 O2 Sat by Pulse 100 Oximetry Constitutional: no acute distress, alert, other (middle aged and chronically ill looking female with normal respiratory effort on pressure support ventilation.) Eyes: icteric ENT: oropharynx moist, other (ETT 24 cm RENETTA) Neck: supple, no lymphadenopathy, no JVD, other (RIJ Vascath) Effort: mildly labored Ascultation: Bilateral: diminished breath sounds Percussion: Bilateral: not dull Cardiovascular: regular rate and rhythm, other Gastrointestinal: hypoactive bowel sounds, soft, non-tender, other (distended) Integumentary: normal Extremities: no cyanosis, pink and warm, pulses normal, edema Neurologic: normal mental status, non-focal exam (grossly), pupils equal and r ound, CN II-XII normal Psychiatric: mood appropriate, affect normal CBC and BMP: 03/12/22 04:24 03/12/22 04:24 ABG, PT/INR, D-dimer: ABG ABG pH 7.450 pH Units (7.350-7.450) 03/11/22 13:18 ABG pCO2 40.2 mm Hg 03/11/22 13:18 ABG pO2 122.3 mm Hg (80.0-90.0) H 03/11/22 13:18 ABG O2 Saturation 98.4 % (95.0-99.0) 03/11/22 13:18 PT/INR, D-dimer PT 22.9 Sec. (12.2-14.9) H 03/07/22 05:48 INR 1.78 (0.87-1.13) H 03/07/22 05:48 Abnormal lab findings: Abnormal Labs 03/03/22 03/03/22 03/03/22 19:44 19:44 19:44 RBC Hgb Hct MCV MCH RDW Plt Count Seg Neutrophils % Seg Neuts % (Manual) Lymphocytes % (Manual) Basophils % (Manual) Seg Neutrophils # Lymphocytes # (Manual) Basophils # (Manual) PT 23.2 H INR 1.80 H ABG pH ABG pO2 ABG HCO3 ABG O2 Saturation ABG Base Excess ABG Hemoglobin Oxyhemoglobin Potassium Chloride Carbon Dioxide 20 L BUN 86 H Creatinine 5.5 H Glucose POC Glucose Calcium 8.0 L Magnesium Total Bilirubin 3.60 H Ammonia 141.0 H Troponin T 0.057 H Total Protein 6.1 L Albumin 2.4 L LDL Cholesterol Direct 35 L HDL Cholesterol 21 L Salicylates Acetaminophen 03/03/22 03/03/22 03/03/22 19:44 19:44 21:30 RBC Hgb Hct MCV MCH RDW Plt Count Seg Neutrophils % Seg Neuts % (Manual) Lymphocytes % (Manual) Basophils % (Manual) Seg Neutrophils # Lymphocytes # (Manual) Basophils # (Manual) PT INR ABG pH ABG pO2 ABG HCO3 ABG O2 Saturation ABG Base Excess -3.7 L ABG Hemoglobin 5.0 L Oxyhemoglobin 94.8 L Potassium Chloride Carbon Dioxide BUN Creatinine Glucose POC Glucose Calcium Magnesium Total Bilirubin Ammonia Troponin T Total Protein Albumin LDL Cholesterol Direct HDL Cholesterol Salicylates < 0.3 L Acetaminophen 5.0 L 03/03/22 03/04/22 03/04/22 21:35 11:03 11:03 RBC 1.69 L 3.00 L Hgb 5.8 L* 9.4 L D Hct 17.2 L* 28.3 L D MCV 102 H MCH 34 H RDW 19.8 H 23.5 H Plt Count 75 L 72 L Seg Neutrophils % 71.2 H Seg Neuts % (Manual) Lymphocytes % (Manual) Basophils % (Manual) Seg Neutrophils # Lymphocytes # (Manual) Basophils # (Manual) PT 20.7 H INR 1.57 H ABG pH ABG pO2 ABG HCO3 ABG O2 Saturation ABG Base Excess ABG Hemoglobin Oxyhemoglobin Potassium Chloride Carbon Dioxide BUN Creatinine Glucose POC Glucose Calcium Magnesium Total Bilirubin Ammonia Troponin T Total Protein Albumin LDL Cholesterol Direct HDL Cholesterol Salicylates Acetaminophen 03/04/22 03/04/22 03/04/22 11:03 12:00 15:30 RBC Hgb 9.3 L Hct 28.4 L MCV MCH RDW Plt Count Seg Neutrophils % Seg Neuts % (Manual) Lymphocytes % (Manual) Basophils % (Manual) Seg Neutrophils # Lymphocytes # (Manual) Basophils # (Manual) PT INR ABG pH 7.301 L ABG pO2 273.8 H ABG HCO3 17.6 L ABG O2 Saturation 99.4 H ABG Base Excess -8.1 L ABG Hemoglobin 9.2 L Oxyhemoglobin Potassium Chloride Carbon Dioxide 18 L BUN 79 H Creatinine 5.0 H Glucose POC Glucose Calcium 8.3 L Magnesium Total Bilirubin Ammonia Troponin T Total Protein Albumin LDL Cholesterol Direct HDL Cholesterol Salicylates Acetaminophen 03/05/22 03/05/22 03/05/22 00:27 04:00 06:20 RBC 2.80 L Hgb 8.9 L 8.5 L Hct 27.2 L 26.7 L MCV MCH RDW 24.1 H Plt Count 93 L 94 L Seg Neutrophils % 78.7 H Seg Neuts % (Manual) Lymphocytes % (Manual) Basophils % (Manual) Seg Neutrophils # 8.6 H Lymphocytes # (Manual) Basophils # (Manual) PT INR ABG pH 7.290 L ABG pO2 145.8 H ABG HCO3 17.9 L ABG O2 Saturation ABG Base Excess -8.0 L ABG Hemoglobin 8.8 L Oxyhemoglobin Potassium Chloride Carbon Dioxide BUN Creatinine Glucose POC Glucose Calcium Magnesium Total Bilirubin Ammonia Troponin T Total Protein Albumin LDL Cholesterol Direct HDL Cholesterol Salicylates Acetaminophen 03/05/22 03/05/22 03/05/22 06:20 06:20 06:20 RBC Hgb Hct MCV MCH RDW Plt Count Seg Neutrophils % Seg Neuts % (Manual) Lymphocytes % (Manual) Basophils % (Manual) Seg Neutrophils # Lymphocytes # (Manual) Basophils # (Manual) PT 20.6 H INR 1.56 H ABG pH ABG pO2 ABG HCO3 ABG O2 Saturation ABG Base Excess ABG Hemoglobin Oxyhemoglobin Potassium Chloride Carbon Dioxide 16 L BUN 80 H Creatinine 5.5 H Glucose POC Glucose Calcium 8.0 L Magnesium Total Bilirubin Ammonia 73.0 H Troponin T Total Protein Albumin LDL Cholesterol Direct HDL Cholesterol Salicylates Acetaminophen 03/05/22 03/06/22 03/06/22 16:52 03:37 03:37 RBC 2.42 L Hgb 8.5 L 7.6 L Hct 25.6 L 23.1 L MCV MCH RDW 24.2 H Plt Count 74 L 64 L Seg Neutrophils % Seg Neuts % (Manual) Lymphocytes % (Manual) Basophils % (Manual) Seg Neutrophils # Lymphocytes # (Manual) Basophils # (Manual) PT INR ABG pH ABG pO2 ABG HCO3 ABG O2 Saturation ABG Base Excess ABG Hemoglobin Oxyhemoglobin Potassium Chloride 108.9 H Carbon Dioxide 18 L BUN 81 H Creatinine 5.9 H Glucose 131 H POC Glucose Calcium 7.5 L Magnesium Total Bilirubin Ammonia Troponin T Total Protein Albumin LDL Cholesterol Direct HDL Cholesterol Salicylates Acetaminophen 03/06/22 03/06/22 03/06/22 04:55 11:50 14:30 RBC Hgb Hct MCV MCH RDW Plt Count Seg Neutrophils % Seg Neuts % (Manual) Lymphocytes % (Manual) Basophils % (Manual) Seg Neutrophils # Lymphocytes # (Manual) Basophils # (Manual) PT 20.8 H INR 1.58 H ABG pH 7.272 L ABG pO2 103.3 H ABG HCO3 18.8 L ABG O2 Saturation ABG Base Excess -7.5 L ABG Hemoglobin 7.6 L Oxyhemoglobin Potassium Chloride Carbon Dioxide BUN Creatinine Glucose POC Glucose 140 H Calcium Magnesium Total Bilirubin Ammonia Troponin T Total Protein Albumin LDL Cholesterol Direct HDL Cholesterol Salicylates Acetaminophen 03/06/22 03/07/22 03/07/22 17:48 04:00 05:48 RBC 2.42 L Hgb 7.6 L Hct 22.7 L MCV MCH RDW 23.9 H Plt Count 44 L Seg Neutrophils % Seg Neuts % (Manual) Lymphocytes % (Manual) Basophils % (Manual) Seg Neutrophils # Lymphocytes # (Manual) Basophils # (Manual) PT INR ABG pH ABG pO2 97.1 H ABG HCO3 ABG O2 Saturation ABG Base Excess ABG Hemoglobin 7.7 L Oxyhemoglobin Potassium Chloride Carbon Dioxide BUN Creatinine Glucose POC Glucose 126 H Calcium Magnesium Total Bilirubin Ammonia Troponin T Total Protein Albumin LDL Cholesterol Direct HDL Cholesterol Salicylates Acetaminophen 03/07/22 03/07/22 03/08/22 05:48 05:48 04:20 RBC Hgb Hct MCV MCH RDW Plt Count Seg Neutrophils % Seg Neuts % (Manual) Lymphocytes % (Manual) Basophils % (Manual) Seg Neutrophils # Lymphocytes # (Manual) Basophils # (Manual) PT 22.9 H INR 1.78 H ABG pH ABG pO2 108.4 H ABG HCO3 ABG O2 Saturation ABG Base Excess -3.4 L ABG Hemoglobin 7.7 L Oxyhemoglobin Potassium 3.2 L Chloride Carbon Dioxide 21 L BUN 43 H Creatinine 4.3 H Glucose POC Glucose Calcium 7.8 L Magnesium 1.30 L Total Bilirubin 2.40 H Ammonia Troponin T Total Protein 5.3 L Albumin 2.1 L LDL Cholesterol Direct HDL Cholesterol Salicylates Acetaminophen 03/08/22 03/08/22 03/08/22 05:49 05:49 23:54 RBC 2.40 L Hgb 7.6 L Hct 22.5 L MCV MCH RDW 24.1 H Plt Count 54 L Seg Neutrophils % Seg Neuts % (Manual) Lymphocytes % (Manual) Basophils % (Manual) Seg Neutrophils # Lymphocytes # (Manual) Basophils # (Manual) PT INR ABG pH ABG pO2 ABG HCO3 ABG O2 Saturation ABG Base Excess ABG Hemoglobin Oxyhemoglobin Potassium 3.4 L Chloride Carbon Dioxide 19 L BUN 46 H Creatinine 4.4 H Glucose POC Glucose 125 H Calcium 8.3 L Magnesium Total Bilirubin 2.20 H Ammonia Troponin T Total Protein 5.3 L Albumin 2.4 L LDL Cholesterol Direct HDL Cholesterol Salicylates Acetaminophen 03/09/22 03/09/22 03/09/22 04:25 05:15 05:15 RBC 2.38 L Hgb 7.6 L Hct 22.4 L MCV MCH RDW 24.9 H Plt Count 36 L Seg Neutrophils % Seg Neuts % (Manual) Lymphocytes % (Manual) Basophils % (Manual) Seg Neutrophils # Lymphocytes # (Manual) Basophils # (Manual) PT INR ABG pH 7.496 H ABG pO2 103.8 H ABG HCO3 ABG O2 Saturation ABG Base Excess ABG Hemoglobin 7.4 L Oxyhemoglobin Potassium 3.1 L Chloride Carbon Dioxide BUN 24 H Creatinine 2.9 H Glucose 136 H POC Glucose Calcium 8.1 L Magnesium 1.50 L Total Bilirubin Ammonia Troponin T Total Protein Albumin LDL Cholesterol Direct HDL Cholesterol Salicylates Acetaminophen 03/10/22 03/10/22 03/10/22 04:32 04:32 05:15 RBC 2.42 L Hgb 7.7 L Hct 22.9 L MCV MCH RDW 26.0 H Plt Count 37 L Seg Neutrophils % Seg Neuts % (Manual) Lymphocytes % (Manual) Basophils % (Manual) Seg Neutrophils # Lymphocytes # (Manual) Basophils # (Manual) PT INR ABG pH ABG pO2 ABG HCO3 ABG O2 Saturation ABG Base Excess ABG Hemoglobin Oxyhemoglobin Potassium 3.5 L Chloride Carbon Dioxide BUN 31 H Creatinine 3.4 H Glucose 114 H POC Glucose 114 H Calcium 8.1 L Magnesium Total Bilirubin Ammonia Troponin T Total Protein Albumin LDL Cholesterol Direct HDL Cholesterol Salicylates Acetaminophen 03/10/22 03/10/22 03/11/22 23:40 Unknown 06:00 RBC 2.35 L Hgb 7.6 L Hct 22.4 L MCV MCH 33 H RDW 26.5 H Plt Count 33 L Seg Neutrophils % Seg Neuts % (Manual) Lymphocytes % (Manual) Basophils % (Manual) Seg Neutrophils # Lymphocytes # (Manual) Basophils # (Manual) PT INR ABG pH ABG pO2 68.8 L ABG HCO3 ABG O2 Saturation 94.2 L ABG Base Excess ABG Hemoglobin 11.5 L Oxyhemoglobin 92.1 L Potassium Chloride Carbon Dioxide BUN Creatinine Glucose POC Glucose 107 H Calcium Magnesium Total Bilirubin Ammonia Troponin T Total Protein Albumin LDL Cholesterol Direct HDL Cholesterol Salicylates Acetaminophen 03/11/22 03/11/22 03/12/22 06:00 13:18 04:24 RBC 2.39 L Hgb 7.6 L Hct 23.7 L MCV 99 H MCH RDW 26.8 H Plt Count 41 L Seg Neutrophils % Seg Neuts % (Manual) 83.0 H Lymphocytes % (Manual) 12.0 L Basophils % (Manual) 2.0 H Seg Neutrophils # Lymphocytes # (Manual) 0.9 L Basophils # (Manual) 0.2 H PT INR ABG pH ABG pO2 122.3 H ABG HCO3 27.3 H ABG O2 Saturation ABG Base Excess 3.1 H ABG Hemoglobin 7.6 L Oxyhemoglobin Potassium 3.5 L Chloride Carbon Dioxide BUN 25 H Creatinine 3.0 H Glucose 107 H POC Glucose Calcium Magnesium Total Bilirubin Ammonia Troponin T Total Protein Albumin LDL Cholesterol Direct HDL Cholesterol Salicylates Acetaminophen 03/12/22 04:24 RBC Hgb Hct MCV MCH RDW Plt Count Seg Neutrophils % Seg Neuts % (Manual) Lymphocytes % (Manual) Basophils % (Manual) Seg Neutrophils # Lymphocytes # (Manual) Basophils # (Manual) PT INR ABG pH ABG pO2 ABG HCO3 ABG O2 Saturation ABG Base Excess ABG Hemoglobin Oxyhemoglobin Potassium Chloride Carbon Dioxide BUN 30 H Creatinine 3.5 H Glucose POC Glucose Calcium Magnesium Total Bilirubin Ammonia Troponin T Total Protein Albumin LDL Cholesterol Direct HDL Cholesterol Salicylates Acetaminophen Allied health notes reviewed: nursing
--- NOTE | 2022-03-12 16:33 | Progress Note ---
Assessment and Plan Impression * Acute kidney injury vs ROSEMARY on CKD --HD initiated at [facility] in 01/2022 * Acute hypoxic respiratory failure, s/p intubation * Cirrhosis * Anemia secondary to acute blood loss/GI bleed --s/p EGD on 03/04/2022 with distal esophageal ulcer, duodenal ulcer, portal hypertensive gastropathy. No active bleeding. * Esophageal/duodenal ulcer * Metabolic acidosis * Hypotension, secondary to ABL * Thrombocytopenia * Acute encephalopathy Plan: * No acute need for HD today * Continue MWF schedule * Adjust K bath with dialysis * Transfuse for hemoglobin less than * Strict I/O * Dose medications for renal function * Avoid nephrotoxins * Diet per GI/primary team Subjective Date of service: 03/12/22 Principal diagnosis: AHRF on MVS; ABLA; UGIB; Thrombocytopenia; AMS; ETOH Abuse; ROSEMARY on HD Interval history: Patient has no complaints today. Objective - Vital Signs Vital signs: Vital Signs - 12hr 03/12/22 03/12/22 03/12/22 04:45 05:00 05:15 Temperature Pulse Rate 86 77 76 Pulse Rate [ From Monitor] Respiratory 12 15 17 Rate Blood Pressure 110/58 108/55 108/59 O2 Sat by Pulse 100 100 100 Oximetry 03/12/22 03/12/22 03/12/22 05:30 05:45 06:00 Temperature Pulse Rate 77 77 75 Pulse Rate [ From Monitor] Respiratory 14 14 17 Rate Blood Pressure 97/53 102/53 97/52 O2 Sat by Pulse 100 100 100 Oximetry 03/12/22 03/12/22 03/12/22 06:15 06:30 06:45 Temperature Pulse Rate 78 78 74 Pulse Rate [ From Monitor] Respiratory 17 16 19 Rate Blood Pressure 88/55 100/49 103/57 O2 Sat by Pulse 90 97 100 Oximetry 03/12/22 03/12/22 03/12/22 07:00 07:15 07:30 Temperature Pulse Rate 77 77 77 Pulse Rate [ From Monitor] Respiratory 19 16 20 Rate Blood Pressure 112/62 105/56 110/57 O2 Sat by Pulse 100 100 100 Oximetry 03/12/22 03/12/22 03/12/22 07:45 07:48 07:51 Temperature 98.1 F Pulse Rate 84 Pulse Rate [ From Monitor] Respiratory 19 Rate Blood Pressure 111/63 O2 Sat by Pulse 100 100 Oximetry 03/12/22 03/12/22 03/12/22 08:00 08:15 08:30 Temperature Pulse Rate 77 81 75 Pulse Rate [ 77 From Monitor] Respiratory 15 16 13 Rate Blood Pressure 110/68 117/65 115/61 O2 Sat by Pulse 100 100 100 Oximetry 03/12/22 03/12/22 03/12/22 08:45 09:00 09:15 Temperature Pulse Rate 79 80 79 Pulse Rate [ From Monitor] Respiratory 14 14 13 Rate Blood Pressure 107/59 109/59 112/62 O2 Sat by Pulse 100 100 100 Oximetry 03/12/22 03/12/22 03/12/22 09:30 09:45 10:00 Temperature Pulse Rate 84 89 83 Pulse Rate [ From Monitor] Respiratory 13 14 22 Rate Blood Pressure 109/60 106/56 95/65 O2 Sat by Pulse 100 100 96 Oximetry 03/12/22 03/12/22 03/12/22 10:15 10:30 10:45 Temperature Pulse Rate 80 82 84 Pulse Rate [ From Monitor] Respiratory 17 16 14 Rate Blood Pressure 117/67 105/63 108/69 O2 Sat by Pulse 100 94 99 Oximetry 03/12/22 03/12/22 03/12/22 11:00 11:15 11:30 Temperature Pulse Rate 82 80 88 Pulse Rate [ From Monitor] Respiratory 19 19 15 Rate Blood Pressure 114/65 106/59 108/66 O2 Sat by Pulse 100 98 Oximetry 03/12/22 03/12/22 03/12/22 11:45 11:51 12:00 Temperature 100.3 F H Pulse Rate 91 H 83 Pulse Rate [ 83 From Monitor] Respiratory 22 17 Rate Blood Pressure 118/76 113/63 O2 Sat by Pulse 91 100 Oximetry 03/12/22 03/12/22 03/12/22 12:15 12:30 12:45 Temperature Pulse Rate 82 82 80 Pulse Rate [ From Monitor] Respiratory 14 18 17 Rate Blood Pressure 103/67 118/67 120/63 O2 Sat by Pulse 100 100 100 Oximetry 03/12/22 03/12/22 03/12/22 13:00 13:15 13:30 Temperature Pulse Rate 78 81 85 Pulse Rate [ From Monitor] Respiratory 19 22 10 L Rate Blood Pressure 118/64 127/67 119/70 O2 Sat by Pulse 100 100 98 Oximetry 03/12/22 03/12/22 03/12/22 13:45 14:00 14:15 Temperature Pulse Rate 84 87 83 Pulse Rate [ From Monitor] Respiratory 23 15 11 L Rate Blood Pressure 122/74 129/77 92/76 O2 Sat by Pulse 100 100 97 Oximetry 03/12/22 03/12/22 03/12/22 14:30 14:45 15:00 Temperature Pulse Rate 81 86 83 Pulse Rate [ From Monitor] Respiratory 13 14 19 Rate Blood Pressure 128/63 133/64 121/77 O2 Sat by Pulse 100 99 100 Oximetry 03/12/22 03/12/22 15:15 15:30 Temperature Pulse Rate 81 83 Pulse Rate [ From Monitor] Respiratory 15 16 Rate Blood Pressure 116/69 132/74 O2 Sat by Pulse 100 Oximetry - General Appearance General appearance: well-developed EENT: ATNC Respiratory: Present: Clear to Ascultation Cardiology: regular, S1S2 Gastrointestinal: no tenderness, distended Integumentary: warm and dry Neurologic: alert and oriented x3 Psychiatric: cooperative - Lab 03/12/22 04:24 03/12/22 04:24 Most recent lab results ABG pH 7.450 pH Units (7.350-7.450) 03/11/22 13:18 ABG pCO2 40.2 mm Hg 03/11/22 13:18 ABG pO2 122.3 mm Hg (80.0-90.0) H 03/11/22 13:18 ABG HCO3 27.3 mmol/L (20.0-26.0) H 03/11/22 13:18 ABG O2 Saturation 98.4 % (95.0-99.0) 03/11/22 13:18 Calcium 8.5 mg/dL (8.4-10.2) 03/12/22 04:24 Phosphorus 2.90 mg/dL (2.5-4.5) 03/10/22 04:32 Magnesium 1.90 mg/dL (1.7-2.3) 03/10/22 04:32 Medications & Allergies - Medications Allergies/Adverse Reactions: Allergies Penicillins Allergy (Verified 03/03/22 17:17) Rash Home Medications: Home Medications Medication Instructions Recorded Confirmed Last Taken Type FLUoxetine [PROzac] 20 mg PO QDAY #30 capsule 04/27/16 12/30/16 Unknown Rx Folic Acid 1 tab PO QDAY #30 tab 04/27/16 12/30/16 Unknown Rx Multivitamin Tab [Multiple Vitamin 1 each PO ONCE #30 tablet 04/27/16 12/30/16 Unknown Rx TAB (Theragran)] Thiamine [Vitamin B-1] 100 mg PO QDAY #30 tablet 04/27/16 12/30/16 Unknown Rx traZODone [Desyrel] 50 mg PO QHS #30 tab 04/27/16 12/30/16 Unknown Rx chlordiazePOXIDE [Librium] 25 mg PO Q6H #10 capsule 08/11/20 Unknown Rx Active Medications: Generic Name Dose Route Start Last Admin Trade Name Freq PRN Reason Stop Dose Admin Albuterol 2.5 mg 03/12/22 04:22 Albuterol 2.5 Mg/3 Ml Nebu IH Q4HRT PRN Shortness Of Breath Lipase/Protease/Amylase 1 each 03/07/22 14:23 Lipase 10,500/Protease 25,000/Amylase 43,750 (Units) Dr Villalobos FEEDTUBE PRN PRN For Clogged Feeding Tube Fluoxetine HCl 20 mg 03/13/22 10:00 Fluoxetine 20 Mg Cap PO QDAY FABIEN Folic Acid 1 mg 03/13/22 10:00 Folic Acid 1 Mg Tab PO QDAY FABIEN Hydrophilic Ointment 1 applic 03/04/22 10:47 Lip Therapy Vaseline TP Q2HR PRN Dry Lips Dexmedetomidine HCl 200 mcg/ 50 mls @ 3.655 mls/hr 03/07/22 10:00 03/09/22 06:05 Sodium Chloride IV 0 mcg/kg/hr TITRATE FABIEN 0 mls/hr Titration Protocol 0.2 MCG/KG/HR NORepinephrine/NS 8 MG-250 ML 8 mg in 250 mls @ 3.75 mls/hr 03/07/22 19:00 03/10/22 04:51 Norepinephrine/Ns 8 Mg-250 Ml (Double Conc) IV 0 mcg/min TITRATE FABIEN 0 mls/hr Titration Protocol 2 MCG/MIN Sodium Chloride 100 mls @ 999 mls/hr 03/09/22 08:58 Nacl 0.9% IV PETRA PRN Hypotension Lactulose 20 gm 03/13/22 10:00 Lactulose 20 Gm/30 Ml Oral Liqd PO QDAY FABIEN Lansoprazole 30 mg 03/09/22 22:00 03/12/22 10:34 Lansoprazole 30 Mg Solutab FEEDTUBE 30 mg BID FABIEN Administration Midodrine 10 mg 03/12/22 12:00 03/12/22 15:04 Midodrine 10 Mg Tab PO 10 mg TID@0800,1200,1600 FABIEN Administration Morphine Sulfate 1 mg 03/11/22 00:14 03/12/22 12:14 Morphine 2 Mg/1 Ml Inj IV 1 mg Q4H PRN Administration Pain, Moderate (4-6) Ondansetron HCl 4 mg 03/04/22 00:02 03/10/22 23:53 Ondansetron 4 Mg/2 Ml Inj IV 4 mg Q8H PRN Administration Nausea And Vomiting Rifaximin 550 mg 03/12/22 22:00 Rifaximin 550 Mg Tab PO BID FABIEN Simple Syrup 15 ml 03/07/22 14:23 03/07/22 17:16 Simple Syrup 15 Ml FEEDTUBE 15 ml PRN PRN Administration Hypoglycemia Simple Syrup 30 ml 03/07/22 14:23 Simple Syrup 15 Ml FEEDTUBE PRN PRN Hypoglycemia Sodium Bicarbonate 1,300 mg 03/05/22 14:00 03/12/22 15:04 Sodium Bicarbonate 650 Mg Tab PO 1,300 mg TID FABIEN Administration Sodium Bicarbonate 325 mg 03/07/22 14:23 Sodium Bicarbonate 325 Mg Tab FEEDTUBE PRN PRN For Clogged Feeding Tube Sodium Chloride 10 ml 03/04/22 10:00 03/12/22 10:35 Sodium Chloride 0.9% 10 Ml Flush Syringe IV 10 ml BID FABIEN Administration Sodium Chloride 10 ml 03/04/22 00:02 Sodium Chloride 0.9% 10 Ml Flush Syringe IV PRN PRN LINE FLUSH Thiamine HCl 100 mg 03/13/22 10:00 Thiamine 100 Mg Tab PO QDAY FABIEN
[2022-03-12] MEDS: RIFAXIMIN 550 MG TAB PO SCH (21:42)
[2022-03-13 06:08] LABS: Hematocrit 23.7 % (30.3-42.9); Hemoglobin 7.6 gm/dl (10.1-14.3); Mean Corpuscular HGB Conc 32 % (30-34); Mean Corpuscular Volume 98 fl (79-97); Red Blood Count 2.41 M/mm3 (3.65-5.03)
[2022-03-13 06:11] LABS: Platelet Count 52 K/mm3 (140-440); Red Cell Distribution Width 26.5 % (13.2-15.2)
[2022-03-13 06:27] LABS: Calcium 8.2 mg/dL (8.4-10.2)
--- NOTE | 2022-03-13 08:15 | Progress Note ---
Assessment and Plan Assessment and plan: Interval history: This is a 51-year-old female with EtOH cirrhosis,HFpEF, recent PEA arrest at [facility] (01/2022), CKD on HD who presented to emergency department via EMS on 03/04 with altered mental status. Upon arrival to the emergency department patient's blood pressure was 90/50, tachycardic and confused. Patient also had some blood in her mouth and melena. Work-up the emergency department revealed a H/H of 5.8/17.2, BUN/creatinine of 86/5.5, ammonia 141, tox screen essentially negative, CXR showed increased pulmonary vascularity with mild to moderate interstitial pulmonary edema with no pneumothorax and CT of the abdomen/pelvis showed cirrhosis with portal hypertension including splenomegaly and large volume ascites. Patient was started on a PPI and octreotide drip and given a b lood transfusion. Patient was admitted to the hospital service for Acute blood loss anemia 2/2 Upper GIBwith consults to GI, CCM and nephrology. Hospital course to date: 03/04: Patient had EGD. GI consult and follow-up/procedure appreciated. Patient has a clean base white ulcer at the GE junction without any active bleeding. No obvious associated esophageal varices found. Distal esophagitis. Diffuse portal hypertensive gastropathy changes in the gastric body. A large area of ulceration in the duodenal sweep without high risk stigmata or active bleeding found. 03/05: Patient remains intubated and sedated. On protonix and octreotide gtt per GI. No report of any bleeding overnight. GI recommendations noted. Worsen renal function this morning with anuria, on continuous IVF for now. Per Nephro no indication for HD at this time. Will switch IVF to D51/2NS, close monitor of BG level. Continue to monitor H&H, coags, and liver function. US paracentesis pending. D/W CCM plan to rest patient on the vent over the weekend, will attempt SAT/SBT in the am. 03-06 paracentesis completed 03-07 failed SBT; was agitated overnight (got ativan x 2) 03/08: Patient failed SBT x2, patient remained on Levophed. This afternoon she was started on hemodialysis and Levophed requirements increased. PICC line consulted for PICC placement which was okayed with nephrology. [facility] placed CVL this evening. 03/09: Patient failed SBT again this morning however she does follow commands i ntermittently. No acute events reported overnight. Levophed remains at 2. 03/10: CPAP today. Plan to last on CPAP as long as tolerated. Off levophed gtt. 03/11: No acute events reported overnight, remains off Levophed. Patient was extubated this afternoon. Formal speech evaluation pending. 03/12: Passed bedside swallow eval yesterday, remains off levophed, reamins on RA to NC. Producing 2-3 BM per day 03/13: Hypotensive on encounter. Ordered Albumin 50 mg IV x 1. Possible d/c tomorrow. Dispo: home. Assessment and Plan: Neuro: Hepatic encephalopathy (resolved), h/o EtOH abuse -s/p Precedex drip -Reorientation as needed -Maintain sleep-wake cycle -As needed analgesia -CT head shows no acute focal parenchymal lesion -CIWA protocol -Lactulose p.o. daily Cardiac: Hypotension 2/2 to blood loss anemia (resolved) -Blood pressure monitoring per protocol -s/p vasopressor support with Levophed -Midodrine 10 mg TID Respiratory: Acute hypoxic respiratory failure -CCM consulted, appreciate recommendations -Intubated on 03/04 with a 7.50 ETT at 22 the lips for EGD and extubated 03/11 -Supplemental oxygenation as needed -Pulmonary hygiene -SPO2 monitoring GI: Upper GI bleed (resolved), esophageal/duodenal ulcer, alcoholic liver cirrhosis with ascites -GI consulted, appreciate recommendations -Abdomen/pelvis CT without contrast shows cirrhosis with portal hypertension including splenomegaly and large volume ascites, 5.4 cm left adnexal dermoid -S/p EGD on 03/04 which showed blood in the oropharynx, clean base without ulcer at the GE junction without active bleeding, LA grade B esophagitis at the distal esophagus, retained food/fluid debris's in the gastric fundus and body, diffuse portal hypertensive gastropathy changes in the gastric body with no active bleeding, large area of ulceration in the duodenal sweep without high risk stigmata or active bleeding. -S/p PPI and octreotide drip -S/p paracentesis on 03/06 with removal of 7 Liters -24 hours + 1210 mL -PPI -Passed beside swallow eval->awaiting ST eval -BR: Lactulose -Rifaximin : Acute on chronic renal failure, Acute tubular necrosis, Chornic Kidney disease, metabolic acidosis -Nephrology consulted, appreciate recommendations -Monitor intake and output -HD per nephrology (MWF) -Bicarb TID -Senior catheter discontinued 03/06 -Bladder scan nightly -Renally dose medications -Avoid nephrotoxic medications -Renal ultrasound shows left renal cyst -Trend BMP ID: NAD -s/p Rocephin for 7 days -Rifaximin -f/u blood culture -Monitor WBC and temperature curve Endo: NAD -Avoid hypoglycemia -SSI -Accu-Cheks q. 6 Heme: Acute blood loss anemia, thrombocytopenia -Presented with melena and hematemesis -s/p 3 units prbc and vit K -Trend CBC -Transfuse hemoglobin less than 7 -SCDs to BLE while in bed #Advance care planning Disease education conducted, care plan discussed, diagnoses discussed, prognosis discussed, patient is full code, patient acknowledges understanding and agree with care plan, +30 minutes. Total Time Spent with Patient (Minutes): 45 History Interval history: No acute complaints on encounter. stressed importance of follow up with OP hepatology. BP noted to be low on encounter 88/41. advised rn to order albumin. Hospitalist Physical - Physical exam Narrative exam: Physical Exam: VITAL SIGNS: Reviewed. GENERAL: The patient appears normally developed, Vital signs as documented. HEAD: No signs of head trauma. EYES: Pupils are equal. Extraocular motions intact. EARS: Hearing grossly intact. MOUTH: Oropharynx is normal. NECK: No adenopathy, no JVD. CHEST: Chest with clear breath sounds bilaterally. No wheezes, rales, or rhonchi. CARDIAC: Regular rate and rhythm. S1 and S2, without murmurs, gallops, or rubs. VASCULAR: No Edema. Peripheral pulses normal and equal in all extremities. ABDOMEN: Soft, non tender. mild abd distention. No rebound or guarding, and no masses palpated. Bowel Sounds normal. MUSCULOSKELETAL: Good range of motion of all major joints. Extremities without clubbing, cyanosis or edema. NEUROLOGIC EXAM: Alert and oriented x 4. no focal sensory or strength deficits. PSYCHIATRIC: Mood normal. SKIN: detail exam as documented in skin assessment - Constitutional Vitals: Temp Pulse Resp BP Pulse Ox 100.3 F H 83 16 132/74 98 03/12/22 11:51 03/12/22 15:30 03/12/22 15:30 03/12/22 15:30 03/12/22 22:00 General appearance: Present: no acute distress, other (Intubated and Sedated) HEART Score - HEART Score Troponin: Troponin T 0.057 ng/mL (0.00-0.029) H 03/03/22 19:44 Results - Labs CBC & Chem 7: 03/13/22 05:47 03/13/22 05:47 Labs: Laboratory Last Values WBC 7.0 K/mm3 (4.5-11.0) 03/13/22 05:47 RBC 2.41 M/mm3 (3.65-5.03) L 03/13/22 05:47 Hgb 7.6 gm/dl (10.1-14.3) L 03/13/22 05:47 Hct 23.7 % (30.3-42.9) L 03/13/22 05:47 MCV 98 fl (79-97) H 03/13/22 05:47 MCH 32 pg (28-32) 03/13/22 05:47 MCHC 32 % (30-34) 03/13/22 05:47 RDW 26.5 % (13.2-15.2) H 03/13/22 05:47 Plt Count 52 K/mm3 (140-440) L 03/13/22 05:47 Lymph % (Auto) 22.0 % (13.4-35.0) 03/08/22 05:49 Sumner % (Auto) 7.3 % (0.0-7.3) 03/08/22 05:49 Eos % (Auto) 1.8 % (0.0-4.3) 03/08/22 05:49 Baso % (Auto) 1.4 % (0.0-1.8) 03/08/22 05:49 Lymph # (Auto) 1.5 K/mm3 (1.2-5.4) 03/08/22 05:49 Sumner # (Auto) 0.5 K/mm3 (0.0-0.8) 03/08/22 05:49 Eos # (Auto) 0.1 K/mm3 (0.0-0.4) 03/08/22 05:49 Baso # (Auto) 0.1 K/mm3 (0.0-0.1) 03/08/22 05:49 Add Manual Diff Complete 03/12/22 04:24 Total Counted 100 03/12/22 04:24 Seg Neutrophils % 67.5 % (40.0-70.0) 03/08/22 05:49 Seg Neuts % (Manual) 83.0 % (40.0-70.0) H 03/12/22 04:24 Band Neutrophils % 0 % 03/12/22 04:24 Lymphocytes % (Manual) 12.0 % (13.4-35.0) L 03/12/22 04:24 Reactive Lymphs % (Man) 0 % 03/12/22 04:24 Monocytes % (Manual) 3.0 % (0.0-7.3) 03/12/22 04:24 Eosinophils % (Manual) 0 % (0.0-4.3) 03/12/22 04:24 Basophils % (Manual) 2.0 % (0.0-1.8) H 03/12/22 04:24 Metamyelocytes % 0 % 03/12/22 04:24 Myelocytes % 0 % 03/12/22 04:24 Promyelocytes % 0 % 03/12/22 04:24 Blast Cells % 0 % 03/12/22 04:24 Nucleated RBC % Not Reportable 03/12/22 04:24 Seg Neutrophils # 4.5 K/mm3 (1.8-7.7) 03/08/22 05:49 Seg Neutrophils # Man 6.4 K/mm3 (1.8-7.7) 03/12/22 04:24 Band Neutrophils # 0.0 K/mm3 03/12/22 04:24 Lymphocytes # (Manual) 0.9 K/mm3 (1.2-5.4) L 03/12/22 04:24 Abs React Lymphs (Man) 0.0 K/mm3 03/12/22 04:24 Monocytes # (Manual) 0.2 K/mm3 (0.0-0.8) 03/12/22 04:24 Eosinophils # (Manual) 0.0 K/mm3 (0.0-0.4) 03/12/22 04:24 Basophils # (Manual) 0.2 K/mm3 (0.0-0.1) H 03/12/22 04:24 Metamyelocytes # 0.0 K/mm3 03/12/22 04:24 Myelocytes # 0.0 K/mm3 03/12/22 04:24 Promyelocytes # 0.0 K/mm3 03/12/22 04:24 Blast Cells # 0.0 K/mm3 03/12/22 04:24 WBC Morphology Not Reportable 03/12/22 04:24 Hypersegmented Neuts Not Reportable 03/12/22 04:24 Hyposegmented Neuts Not Reportable 03/12/22 04:24 Hypogranular Neuts Not Reportable 03/12/22 04:24 Smudge Cells Not Reportable 03/12/22 04:24 Toxic Granulation Not Reportable 03/12/22 04:24 Toxic Vacuolation Not Reportable 03/12/22 04:24 Dohle Bodies Not Reportable 03/12/22 04:24 Pelger-Huet Anomaly Not Reportable 03/12/22 04:24 Kevin Rods Not Reportable 03/12/22 04:24 Platelet Estimate Consistent w auto 03/12/22 04:24 Clumped Platelets Not Reportable 03/12/22 04:24 Plt Clumps, EDTA Not Reportable 03/12/22 04:24 Large Platelets Not Reportable 03/12/22 04:24 Giant Platelets Not Reportable 03/12/22 04:24 Platelet Satelliting Not Reportable 03/12/22 04:24 Plt Morphology Comment Not Reportable 03/12/22 04:24 RBC Morphology Not Reportable 03/12/22 04:24 Dimorphic RBCs Not Reportable 03/12/22 04:24 Polychromasia Not Reportable 03/12/22 04:24 Hypochromasia Not Reportable 03/12/22 04:24 Poikilocytosis Not Reportable 03/12/22 04:24 Anisocytosis 1+ 03/12/22 04:24 Microcytosis Not Reportable 03/12/22 04:24 Macrocytosis Not Reportable 03/12/22 04:24 Spherocytes Not Reportable 03/12/22 04:24 Pappenheimer Bodies Not Reportable 03/12/22 04:24 Sickle Cells Not Reportable 03/12/22 04:24 Target Cells Not Reportable 03/12/22 04:24 Tear Drop Cells Not Reportable 03/12/22 04:24 Ovalocytes Not Reportable 03/12/22 04:24 Helmet Cells Not Reportable 03/12/22 04:24 Johnson-Thoreau Bodies Not Reportable 03/12/22 04:24 [place] Rings Not Reportable 03/12/22 04:24 Linden Cells Not Reportable 03/12/22 04:24 Bite Cells Not Reportable 03/12/22 04:24 Crenated Cell Not Reportable 03/12/22 04:24 Elliptocytes Not Reportable 03/12/22 04:24 Acanthocytes (Spur) Not Reportable 03/12/22 04:24 Rouleaux Not Reportable 03/12/22 04:24 Hemoglobin C Crystals Not Reportable 03/12/22 04:24 Schistocytes Not Reportable 03/12/22 04:24 Malaria parasites Not Reportable 03/12/22 04:24 Kiran Bodies Not Reportable 03/12/22 04:24 Hem Pathologist Commnt No 03/12/22 04:24 PT 22.9 Sec. (12.2-14.9) H 03/07/22 05:48 INR 1.78 (0.87-1.13) H 03/07/22 05:48 ABG pH 7.450 pH Units (7.350-7.450) 03/11/22 13:18 ABG pCO2 40.2 mm Hg 03/11/22 13:18 ABG pO2 122.3 mm Hg (80.0-90.0) H 03/11/22 13:18 ABG HCO3 27.3 mmol/L (20.0-26.0) H 03/11/22 13:18 ABG O2 Saturation 98.4 % (95.0-99.0) 03/11/22 13:18 ABG O2 Content 10.5 (0.0-44) 03/11/22 13:18 ABG Base Excess 3.1 mmol/L (-2.0-3.0) H 03/11/22 13:18 ABG Hemoglobin 7.6 gm/dl (12.0-16.0) L 03/11/22 13:18 ABG Carboxyhemoglobin 1.7 % (0.0-5.0) 03/11/22 13:18 ABG Methemoglobin 0.9 % (0.0-1.5) 03/11/22 13:18 Oxyhemoglobin 95.8 % (95.0-99.0) 03/11/22 13:18 FiO2 25 % 03/11/22 13:18 Sodium 136 mmol/L (137-145) L 03/13/22 05:47 Potassium 4.0 mmol/L (3.6-5.0) 03/13/22 05:47 Chloride 101.7 mmol/L (98-107) 03/13/22 05:47 Carbon Dioxide 26 mmol/L (22-30) 03/13/22 05:47 Anion Gap 12 mmol/L 03/13/22 05:47 BUN 34 mg/dL (7-17) H 03/13/22 05:47 Creatinine 3.8 mg/dL (0.6-1.2) H 03/13/22 05:47 Estimated GFR 13 ml/min 03/13/22 05:47 BUN/Creatinine Ratio 9 % 03/13/22 05:47 Glucose 94 mg/dL (65-100) 03/13/22 05:47 POC Glucose 88 mg/dL (70-105) 03/11/22 13:07 Lactic Acid 1.50 mmol/L (0.7-2.0) 03/03/22 19:44 Calcium 8.2 mg/dL (8.4-10.2) L 03/13/22 05:47 Phosphorus 2.90 mg/dL (2.5-4.5) 03/10/22 04:32 Magnesium 1.90 mg/dL (1.7-2.3) 03/10/22 04:32 Total Bilirubin 2.20 mg/dL (0.1-1.2) H 03/08/22 05:49 AST 30 units/L (5-40) 03/08/22 05:49 ALT 10 units/L (7-56) 03/08/22 05:49 Alkaline Phosphatase 99 units/L (35-129) 03/08/22 05:49 Ammonia 37.0 umol/L (25-60) 03/07/22 05:48 Total Creatine Kinase 31 units/L (30-135) 03/03/22 19:44 Troponin T 0.057 ng/mL (0.00-0.029) H 03/03/22 19:44 Total Protein 5.3 g/dL (6.3-8.2) L 03/08/22 05:49 Albumin 2.4 g/dL (3.9-5) L 03/08/22 05:49 Albumin/Globulin Ratio 0.8 % 03/08/22 05:49 Triglycerides 71 mg/dL (2-149) 03/03/22 19:44 Cholesterol 75 mg/dL (50-199) 03/03/22 19:44 LDL Cholesterol Direct 35 mg/dL (50-130) L 03/03/22 19:44 HDL Cholesterol 21 mg/dL (40-59) L 03/03/22 19:44 Cholesterol/HDL Ratio 3.57 % 03/03/22 19:44 Urine Color Corinna (Yellow) 03/04/22 Unknown Urine Turbidity Clear (Clear) 03/04/22 Unknown Urine pH 5.0 (5.0-7.0) 03/04/22 Unknown Ur Specific Foreman 1.013 (1.003-1.030) 03/04/22 Unknown Urine Protein <15 mg/dl mg/dL (Negative) 03/04/22 Unknown Urine Glucose (UA) Neg mg/dL (Negative) 03/04/22 Unknown Urine Ketones Neg mg/dL (Negative) 03/04/22 Unknown Urine Blood Neg (Negative) 03/04/22 Unknown Urine Nitrite Neg (Negative) 03/04/22 Unknown Urine Bilirubin Neg (Negative) 03/04/22 Unknown Urine Urobilinogen < 2.0 mg/dL (<2.0) 03/04/22 Unknown Ur Leukocyte Esterase Sm (Negative) 03/04/22 Unknown Urine WBC (Auto) 1.0 /HPF (0.0-6.0) 03/04/22 Unknown Urine RBC (Auto) 1.0 /HPF (0.0-6.0) 03/04/22 Unknown U Epithel Cells (Auto) < 1.0 /HPF (0-13.0) 03/04/22 Unknown Fluid Type Paracentesis 03/06/22 17:22 Fluid Color Yellow 03/06/22 17:22 Fluid Appearance Clear 03/06/22 17:22 Fluid WBC 30 /mm3 03/06/22 17:22 Fluid RBC 791 /mm3 03/06/22 17:22 Fluid Seg Neutrophils 7.0 % 03/06/22 17:22 Fluid Lymphocytes 62.0 % 03/06/22 17:22 Fluid Reactive Lymphs 3.0 % 03/06/22 17:22 Fluid Monocytes 28.0 % 03/06/22 17:22 Fluid Eosinophils Not Reportable 03/06/22 17:22 Fluid Basophils Not Reportable 03/06/22 17:22 Salicylates < 0.3 mg/dL (2.8-20.0) L 03/03/22 19:44 Acetaminophen 5.0 ug/mL (10.0-30.0) L 03/03/22 19:44 Plasma/Serum Alcohol < 0.01 % (0-0.07) 03/03/22 19:44 Hepatitis A IgM Ab Non-reactive (NonReactive) 03/06/22 08:41 Hep Bs Antigen Non-reactive (Negative) 03/06/22 08:41 Hep B Core IgM Ab Non-reactive (NonReactive) 03/06/22 08:41 Hepatitis C Antibody Non-reactive (NonReactive) 03/06/22 08:41 Blood Type O POSITIVE 03/03/22 20:13 Antibody Screen Negative 03/03/22 20:13 Senior/IV: Voiding Method Incontinent Active Medications - Current Medications Current Medications: Generic Name Dose Route Start Last Admin Trade Name Freq PRN Reason Stop Dose Admin Albuterol 2.5 mg 03/12/22 04:22 Albuterol 2.5 Mg/3 Ml Nebu IH Q4HRT PRN Shortness Of Breath Fluoxetine HCl 20 mg 03/13/22 10:00 Fluoxetine 20 Mg Cap PO QDAY COUNTS INCLUDE 234 BEDS AT THE [facility] Folic Acid 1 mg 03/13/22 10:00 Folic Acid 1 Mg Tab PO QDAY COUNTS INCLUDE 234 BEDS AT THE [facility] Hydrophilic Ointment 1 applic 03/04/22 10:47 Lip Therapy Vaseline TP Q2HR PRN Dry Lips Sodium Chloride 100 mls @ 999 mls/hr 03/09/22 08:58 Nacl 0.9% IV PETRA PRN Hypotension Lactulose 20 gm 03/13/22 10:00 Lactulose 20 Gm/30 Ml Oral Liqd PO QDAY COUNTS INCLUDE 234 BEDS AT THE [facility] Midodrine 10 mg 03/12/22 12:00 03/12/22 15:04 Midodrine 10 Mg Tab PO 10 mg TID@0800,1200,1600 FABIEN Administration Morphine Sulfate 1 mg 03/11/22 00:14 03/12/22 21:44 Morphine 2 Mg/1 Ml Inj IV 1 mg Q4H PRN Administration Pain, Moderate (4-6) Ondansetron HCl 4 mg 03/04/22 00:02 03/10/22 23:53 Ondansetron 4 Mg/2 Ml Inj IV 4 mg Q8H PRN Administration Nausea And Vomiting Pantoprazole Sodium 40 mg 03/13/22 07:30 Pantoprazole 40 Mg Tab PO QDAC FABIEN Rifaximin 550 mg 03/12/22 22:00 03/12/22 21:42 Rifaximin 550 Mg Tab PO 550 mg BID FABIEN Administration Sodium Bicarbonate 1,300 mg 03/05/22 14:00 03/12/22 20:57 Sodium Bicarbonate 650 Mg Tab PO 1,300 mg TID FABIEN Administration Sodium Chloride 10 ml 03/04/22 10:00 03/12/22 21:02 Sodium Chloride 0.9% 10 Ml Flush Syringe IV 10 ml BID FABIEN Administration Sodium Chloride 10 ml 03/04/22 00:02 Sodium Chloride 0.9% 10 Ml Flush Syringe IV PRN PRN LINE FLUSH Thiamine HCl 100 mg 03/13/22 10:00 Thiamine 100 Mg Tab PO QDAY FABIEN Nutrition/Malnutrition Assess - Dietary Evaluation Nutrition/Malnutrition Findings: Nutrition Notes Start: 03/04/22 10:49 Freq: Status: Active Protocol: Document 03/09/22 16:44 JOSELUIS (Rec: 03/09/22 16:51 JOSELUIS [id number]) Nutrition Notes Initial or Follow up Brief Note Current Diagnosis Acute Kidney Injury,CKD(stage I-IV),Respiratory Failure Other Pertinent Diagnosis Hepatic EtOH Disease/Cirrhosis /Ascites, s/p UGI Bleed, Metabolic Encephal.. Current Diet TF-Nepro w/CARBSTEADY @ 35 ml/ hr (from D 03/07). Height 5 ft 4 in Weight 73.1 kg [place] Body Weight (kg) 54.54 BMI 27.6 Weight change and time frame No body weight change reported in 4 days. Weight Status Overweight Subjective/Other Information RD consult for routine F/U on TF tolerance/continuation. TF continues as prescribed, no further information available at the time, will assess at F /U. Pt continues on Mechanical Ventilation, O2 saturation @ 98%, according to Physical Assessment History notes. Percent of energy/protein needs met: Prescribed TF-Nepro w/ CARBSTEADY @ 35 ml/hr provides for energy/protein needs (1, 500 Kcal/68 g) during LOS, 103 % Kcal; 77% AA. #2 Nutrition Diagnosis Malnutrition Diagnosis Progress(for reassessment Continues documentation) #1 Nutrition Diagnosis Altered GI function Diagnosis Progress(for reassessment Continues documentation) Is patient on ventilator? Yes Is Patient Ambulatory and/or Out of Bed No REE-([place] Jeor-confined to bed) 1601.220 Kcal/Kg value to use for calculation 20 Approximate Energy Requirements Using 1462 kcal/Kg Calculation Used for Recommendations Kcal/kg Additional Notes Protein: >1.2 g/Kg ABW; >88 g/ day. Fluids: 1-1.5 L/day, or as per MD. Nutrition Intervention Nutrition Support: Continue TF-Nepro w/CARBSTEADY @ 35 ml/hr. Flush: 150 ml water Q 4 hr, or as per MD. Kcal 1,500 Protein (gm) 68 Carbohydrates (gm) 134 Fat (gm) 80 Fluid (mL) 606 Fiber (gm) 11 % RDI: 103% Kcal; 77% AA. Goal #1 Provide at least 75% of energy /protein needs through Enteral Feeding during LOS. Follow-Up By: 03/16/22 Additional Comments Continue monitoring TF tolerance and BM.
[2022-03-13] MEDS: PANTOPRAZOLE 40 MG TAB PO SCH (09:05)
[2022-03-13] MEDS: SODIUM BICARBONATE 650 MG TAB PO SCH ×3 (09:05→22:11)
--- NOTE | 2022-03-13 09:34 | Progress Note ---
Assessment and Plan Acute Hypoxic Respiratory Failure s/p MVS Acute Blood Loss Anemia secondary to Upper GI Bleed Thrombocytopenia-Chronic Acute Metabolic Encephalopathy ETOH Abuse Alcoholic Liver Cirrhosis with Ascites and portal hypertension Hyperammonemia Acute on Chronic Kidney Disease on HD -Titrate supplemental oxygen to keep SpO2 89-92%( has oxygen at home) -CXR, ABG as clinically indicated -Monitoring renal function, hemodynamics and electrolyte profile -Replete electrolytes as clinically indicated -s/p Empiric antibiotics therapy for SBP -Accuchecks with glycemic control. target blood glucose 140-180 mg/dL. Avoid hypoglycemia -VTE prophylaxis- contraindicated at this time- patient has UGIB, s/p PRBC and she has thrombocytopenia -SCDs to lower extremities -Supportive transfusions to keep HgB >7g/dL -Avoid nephrotoxins and renally dose all medications -Supportive HD as clinically indicated by Renal service -Stress ulcer prophylaxis- on therapeutic Pantoprazole -Mobility, frequent turning, off loading per facility protocol to prevent pressure ulcers -Maintain sleep wake cycle, avoid benzodiazepines. -Enteric nutritional support once SBFT position is confirmed -Substance abuse counselling done- she was drinking 1 gallon of hard liquor a day and smoked 1PPD States she quit drinking 3 months ago, and is down to 1/2PPD of cigarettes CONDITION:FAIR PROGNOSIS: FAIR CODE STATUS; FULL CODE Discharge planning on going Subjective Date of service: 03/13/22 Principal diagnosis: Upper GI bleed Interval history: This is a 51-year-old female with known past medical history of alcoholic liver disease, HFpEF, recent PEA arrest at [facility] (01/2022), and CKD s/p HD from recent hospitalization, admitted for Acute blood loss anemia 2/2 Upper GIB s/p EGD and remains intubated on MVS. Seen and examined. Vitals, labs, medications, chart reviewed. Discussed with respiratory care and nursing staff. No acute adverse overnight events. No active bleeding noted. Hemoglobin stable Patient was extubated 03/11 ; bedside swallow eval done - no evidence of aspiration Soft blood pressure Objective Vital Signs - 12hr 03/12/22 03/12/22 03/13/22 22:00 22:11 05:05 Temperature 98.9 F 98.9 F Pulse Rate 90 95 H Respiratory 16 16 Rate Blood Pressure 109/58 94/47 O2 Sat by Pulse 98 97 96 Oximetry Constitutional: no acute distress, alert, other (chronically ill looking) Eyes: icteric ENT: oropharynx moist, other (ETT 24 cm RENETTA) Neck: supple, no lymphadenopathy, no JVD, other (RIJ Vascath) Effort: normal Ascultation: Bilateral: clear, diminished breath sounds Percussion: Bilateral: not dull Cardiovascular: regular rate and rhythm, other Gastrointestinal: normoactive bowel sounds, soft, non-tender, other (distended) Integumentary: normal Extremities: no cyanosis, pink and warm, pulses normal, edema, other (ecchymotic areas on her lower and upper extremities) Neurologic: normal mental status, non-focal exam (grossly), pupils equal and round, CN II-XII normal, motor strength normal and Psychiatric: mood appropriate, affect normal CBC and BMP: 03/13/22 05:47 03/13/22 05:47 ABG, PT/INR, D-dimer: ABG ABG pH 7.450 pH Units (7.350-7.450) 03/11/22 13:18 ABG pCO2 40.2 mm Hg 03/11/22 13:18 ABG pO2 122.3 mm Hg (80.0-90.0) H 03/11/22 13:18 ABG O2 Saturation 98.4 % (95.0-99.0) 03/11/22 13:18 PT/INR, D-dimer PT 22.9 Sec. (12.2-14.9) H 03/07/22 05:48 INR 1.78 (0.87-1.13) H 03/07/22 05:48 Abnormal lab findings: Abnormal Labs 03/03/22 03/03/22 03/03/22 19:44 19:44 19:44 RBC Hgb Hct MCV MCH RDW Plt Count Seg Neutrophils % Seg Neuts % (Manual) Lymphocytes % (Manual) Basophils % (Manual) Seg Neutrophils # Lymphocytes # (Manual) Basophils # (Manual) PT 23.2 H INR 1.80 H ABG pH ABG pO2 ABG HCO3 ABG O2 Saturation ABG Base Excess ABG Hemoglobin Oxyhemoglobin Sodium Potassium Chloride Carbon Dioxide 20 L BUN 86 H Creatinine 5.5 H Glucose POC Glucose Calcium 8.0 L Magnesium Total Bilirubin 3.60 H Ammonia 141.0 H Troponin T 0.057 H Total Protein 6.1 L Albumin 2.4 L LDL Cholesterol Direct 35 L HDL Cholesterol 21 L Salicylates Acetaminophen 03/03/22 03/03/22 03/03/22 19:44 19:44 21:30 RBC Hgb Hct MCV MCH RDW Plt Count Seg Neutrophils % Seg Neuts % (Manual) Lymphocytes % (Manual) Basophils % (Manual) Seg Neutrophils # Lymphocytes # (Manual) Basophils # (Manual) PT INR ABG pH ABG pO2 ABG HCO3 ABG O2 Saturation ABG Base Excess -3.7 L ABG Hemoglobin 5.0 L Oxyhemoglobin 94.8 L Sodium Potassium Chloride Carbon Dioxide BUN Creatinine Glucose POC Glucose Calcium Magnesium Total Bilirubin Ammonia Troponin T Total Protein Albumin LDL Cholesterol Direct HDL Cholesterol Salicylates < 0.3 L Acetaminophen 5.0 L 03/03/22 03/04/22 03/04/22 21:35 11:03 11:03 RBC 1.69 L 3.00 L Hgb 5.8 L* 9.4 L D Hct 17.2 L* 28.3 L D MCV 102 H MCH 34 H RDW 19.8 H 23.5 H Plt Count 75 L 72 L Seg Neutrophils % 71.2 H Seg Neuts % (Manual) Lymphocytes % (Manual) Basophils % (Manual) Seg Neutrophils # Lymphocytes # (Manual) Basophils # (Manual) PT 20.7 H INR 1.57 H ABG pH ABG pO2 ABG HCO3 ABG O2 Saturation ABG Base Excess ABG Hemoglobin Oxyhemoglobin Sodium Potassium Chloride Carbon Dioxide BUN Creatinine Glucose POC Glucose Calcium Magnesium Total Bilirubin Ammonia Troponin T Total Protein Albumin LDL Cholesterol Direct HDL Cholesterol Salicylates Acetaminophen 03/04/22 03/04/22 03/04/22 11:03 12:00 15:30 RBC Hgb 9.3 L Hct 28.4 L MCV MCH RDW Plt Count Seg Neutrophils % Seg Neuts % (Manual) Lymphocytes % (Manual) Basophils % (Manual) Seg Neutrophils # Lymphocytes # (Manual) Basophils # (Manual) PT INR ABG pH 7.301 L ABG pO2 273.8 H ABG HCO3 17.6 L ABG O2 Saturation 99.4 H ABG Base Excess -8.1 L ABG Hemoglobin 9.2 L Oxyhemoglobin Sodium Potassium Chloride Carbon Dioxide 18 L BUN 79 H Creatinine 5.0 H Glucose POC Glucose Calcium 8.3 L Magnesium Total Bilirubin Ammonia Troponin T Total Protein Albumin LDL Cholesterol Direct HDL Cholesterol Salicylates Acetaminophen 03/05/22 03/05/22 03/05/22 00:27 04:00 06:20 RBC 2.80 L Hgb 8.9 L 8.5 L Hct 27.2 L 26.7 L MCV MCH RDW 24.1 H Plt Count 93 L 94 L Seg Neutrophils % 78.7 H Seg Neuts % (Manual) Lymphocytes % (Manual) Basophils % (Manual) Seg Neutrophils # 8.6 H Lymphocytes # (Manual) Basophils # (Manual) PT INR ABG pH 7.290 L ABG pO2 145.8 H ABG HCO3 17.9 L ABG O2 Saturation ABG Base Excess -8.0 L ABG Hemoglobin 8.8 L Oxyhemoglobin Sodium Potassium Chloride Carbon Dioxide BUN Creatinine Glucose POC Glucose Calcium Magnesium Total Bilirubin Ammonia Troponin T Total Protein Albumin LDL Cholesterol Direct HDL Cholesterol Salicylates Acetaminophen 03/05/22 03/05/22 03/05/22 06:20 06:20 06:20 RBC Hgb Hct MCV MCH RDW Plt Count Seg Neutrophils % Seg Neuts % (Manual) Lymphocytes % (Manual) Basophils % (Manual) Seg Neutrophils # Lymphocytes # (Manual) Basophils # (Manual) PT 20.6 H INR 1.56 H ABG pH ABG pO2 ABG HCO3 ABG O2 Saturation ABG Base Excess ABG Hemoglobin Oxyhemoglobin Sodium Potassium Chloride Carbon Dioxide 16 L BUN 80 H Creatinine 5.5 H Glucose POC Glucose Calcium 8.0 L Magnesium Total Bilirubin Ammonia 73.0 H Troponin T Total Protein Albumin LDL Cholesterol Direct HDL Cholesterol Salicylates Acetaminophen 03/05/22 03/06/22 03/06/22 16:52 03:37 03:37 RBC 2.42 L Hgb 8.5 L 7.6 L Hct 25.6 L 23.1 L MCV MCH RDW 24.2 H Plt Count 74 L 64 L Seg Neutrophils % Seg Neuts % (Manual) Lymphocytes % (Manual) Basophils % (Manual) Seg Neutrophils # Lymphocytes # (Manual) Basophils # (Manual) PT INR ABG pH ABG pO2 ABG HCO3 ABG O2 Saturation ABG Base Excess ABG Hemoglobin Oxyhemoglobin Sodium Potassium Chloride 108.9 H Carbon Dioxide 18 L BUN 81 H Creatinine 5.9 H Glucose 131 H POC Glucose Calcium 7.5 L Magnesium Total Bilirubin Ammonia Troponin T Total Protein Albumin LDL Cholesterol Direct HDL Cholesterol Salicylates Acetaminophen 03/06/22 03/06/22 03/06/22 04:55 11:50 14:30 RBC Hgb Hct MCV MCH RDW Plt Count Seg Neutrophils % Seg Neuts % (Manual) Lymphocytes % (Manual) Basophils % (Manual) Seg Neutrophils # Lymphocytes # (Manual) Basophils # (Manual) PT 20.8 H INR 1.58 H ABG pH 7.272 L ABG pO2 103.3 H ABG HCO3 18.8 L ABG O2 Saturation ABG Base Excess -7.5 L ABG Hemoglobin 7.6 L Oxyhemoglobin Sodium Potassium Chloride Carbon Dioxide BUN Creatinine Glucose POC Glucose 140 H Calcium Magnesium Total Bilirubin Ammonia Troponin T Total Protein Albumin LDL Cholesterol Direct HDL Cholesterol Salicylates Acetaminophen 03/06/22 03/07/22 03/07/22 17:48 04:00 05:48 RBC 2.42 L Hgb 7.6 L Hct 22.7 L MCV MCH RDW 23.9 H Plt Count 44 L Seg Neutrophils % Seg Neuts % (Manual) Lymphocytes % (Manual) Basophils % (Manual) Seg Neutrophils # Lymphocytes # (Manual) Basophils # (Manual) PT INR ABG pH ABG pO2 97.1 H ABG HCO3 ABG O2 Saturation ABG Base Excess ABG Hemoglobin 7.7 L Oxyhemoglobin Sodium Potassium Chloride Carbon Dioxide BUN Creatinine Glucose POC Glucose 126 H Calcium Magnesium Total Bilirubin Ammonia Troponin T Total Protein Albumin LDL Cholesterol Direct HDL Cholesterol Salicylates Acetaminophen 03/07/22 03/07/22 03/08/22 05:48 05:48 04:20 RBC Hgb Hct MCV MCH RDW Plt Count Seg Neutrophils % Seg Neuts % (Manual) Lymphocytes % (Manual) Basophils % (Manual) Seg Neutrophils # Lymphocytes # (Manual) Basophils # (Manual) PT 22.9 H INR 1.78 H ABG pH ABG pO2 108.4 H ABG HCO3 ABG O2 Saturation ABG Base Excess -3.4 L ABG Hemoglobin 7.7 L Oxyhemoglobin Sodium Potassium 3.2 L Chloride Carbon Dioxide 21 L BUN 43 H Creatinine 4.3 H Glucose POC Glucose Calcium 7.8 L Magnesium 1.30 L Total Bilirubin 2.40 H Ammonia Troponin T Total Protein 5.3 L Albumin 2.1 L LDL Cholesterol Direct HDL Cholesterol Salicylates Acetaminophen 03/08/22 03/08/22 03/08/22 05:49 05:49 23:54 RBC 2.40 L Hgb 7.6 L Hct 22.5 L MCV MCH RDW 24.1 H Plt Count 54 L Seg Neutrophils % Seg Neuts % (Manual) Lymphocytes % (Manual) Basophils % (Manual) Seg Neutrophils # Lymphocytes # (Manual) Basophils # (Manual) PT INR ABG pH ABG pO2 ABG HCO3 ABG O2 Saturation ABG Base Excess ABG Hemoglobin Oxyhemoglobin Sodium Potassium 3.4 L Chloride Carbon Dioxide 19 L BUN 46 H Creatinine 4.4 H Glucose POC Glucose 125 H Calcium 8.3 L Magnesium Total Bilirubin 2.20 H Ammonia Troponin T Total Protein 5.3 L Albumin 2.4 L LDL Cholesterol Direct HDL Cholesterol Salicylates Acetaminophen 03/09/22 03/09/22 03/09/22 04:25 05:15 05:15 RBC 2.38 L Hgb 7.6 L Hct 22.4 L MCV MCH RDW 24.9 H Plt Count 36 L Seg Neutrophils % Seg Neuts % (Manual) Lymphocytes % (Manual) Basophils % (Manual) Seg Neutrophils # Lymphocytes # (Manual) Basophils # (Manual) PT INR ABG pH 7.496 H ABG pO2 103.8 H ABG HCO3 ABG O2 Saturation ABG Base Excess ABG Hemoglobin 7.4 L Oxyhemoglobin Sodium Potassium 3.1 L Chloride Carbon Dioxide BUN 24 H Creatinine 2.9 H Glucose 136 H POC Glucose Calcium 8.1 L Magnesium 1.50 L Total Bilirubin Ammonia Troponin T Total Protein Albumin LDL Cholesterol Direct HDL Cholesterol Salicylates Acetaminophen 03/10/22 03/10/22 03/10/22 04:32 04:32 05:15 RBC 2.42 L Hgb 7.7 L Hct 22.9 L MCV MCH RDW 26.0 H Plt Count 37 L Seg Neutrophils % Seg Neuts % (Manual) Lymphocytes % (Manual) Basophils % (Manual) Seg Neutrophils # Lymphocytes # (Manual) Basophils # (Manual) PT INR ABG pH ABG pO2 ABG HCO3 ABG O2 Saturation ABG Base Excess ABG Hemoglobin Oxyhemoglobin Sodium Potassium 3.5 L Chloride Carbon Dioxide BUN 31 H Creatinine 3.4 H Glucose 114 H POC Glucose 114 H Calcium 8.1 L Magnesium Total Bilirubin Ammonia Troponin T Total Protein Albumin LDL Cholesterol Direct HDL Cholesterol Salicylates Acetaminophen 03/10/22 03/10/22 03/11/22 23:40 Unknown 06:00 RBC 2.35 L Hgb 7.6 L Hct 22.4 L MCV MCH 33 H RDW 26.5 H Plt Count 33 L Seg Neutrophils % Seg Neuts % (Manual) Lymphocytes % (Manual) Basophils % (Manual) Seg Neutrophils # Lymphocytes # (Manual) Basophils # (Manual) PT INR ABG pH ABG pO2 68.8 L ABG HCO3 ABG O2 Saturation 94.2 L ABG Base Excess ABG Hemoglobin 11.5 L Oxyhemoglobin 92.1 L Sodium Potassium Chloride Carbon Dioxide BUN Creatinine Glucose POC Glucose 107 H Calcium Magnesium Total Bilirubin Ammonia Troponin T Total Protein Albumin LDL Cholesterol Direct HDL Cholesterol Salicylates Acetaminophen 03/11/22 03/11/22 03/12/22 06:00 13:18 04:24 RBC 2.39 L Hgb 7.6 L Hct 23.7 L MCV 99 H MCH RDW 26.8 H Plt Count 41 L Seg Neutrophils % Seg Neuts % (Manual) 83.0 H Lymphocytes % (Manual) 12.0 L Basophils % (Manual) 2.0 H Seg Neutrophils # Lymphocytes # (Manual) 0.9 L Basophils # (Manual) 0.2 H PT INR ABG pH ABG pO2 122.3 H ABG HCO3 27.3 H ABG O2 Saturation ABG Base Excess 3.1 H ABG Hemoglobin 7.6 L Oxyhemoglobin Sodium Potassium 3.5 L Chloride Carbon Dioxide BUN 25 H Creatinine 3.0 H Glucose 107 H POC Glucose Calcium Magnesium Total Bilirubin Ammonia Troponin T Total Protein Albumin LDL Cholesterol Direct HDL Cholesterol Salicylates Acetaminophen 03/12/22 03/13/22 03/13/22 04:24 05:47 05:47 RBC 2.41 L Hgb 7.6 L Hct 23.7 L MCV 98 H MCH RDW 26.5 H Plt Count 52 L Seg Neutrophils % Seg Neuts % (Manual) Lymphocytes % (Manual) Basophils % (Manual) Seg Neutrophils # Lymphocytes # (Manual) Basophils # (Manual) PT INR ABG pH ABG pO2 ABG HCO3 ABG O2 Saturation ABG Base Excess ABG Hemoglobin Oxyhemoglobin Sodium 136 L Potassium Chloride Carbon Dioxide BUN 30 H 34 H Creatinine 3.5 H 3.8 H Glucose POC Glucose Calcium 8.2 L Magnesium Total Bilirubin Ammonia Troponin T Total Protein Albumin LDL Cholesterol Direct HDL Cholesterol Salicylates Acetaminophen Allied health notes reviewed: nursing
--- NOTE | 2022-03-13 09:38 | Progress Note ---
Assessment and Plan Impression * Acute kidney injury vs ROSEMARY on CKD --HD initiated at [facility] in 01/2022 * Acute hypoxic respiratory failure, s/p intubation * Cirrhosis * Anemia secondary to acute blood loss/GI bleed --s/p EGD on 03/04/2022 with distal esophageal ulcer, duodenal ulcer, portal hypertensive gastropathy. No active bleeding. * Esophageal/duodenal ulcer * Metabolic acidosis * Hypotension, secondary to ABL * Thrombocytopenia * Acute encephalopathy Plan: * Continue HD MWF schedule for electrolyte, volume management * Adjust K bath with dialysis * Note uptrending creatinine off HD, less likely with renal recovery at this time * Transfuse for hemoglobin less than 7 * ESAs with HD * Strict I/O * Dose medications for renal function * Avoid nephrotoxins * Diet per GI/primary team * Daily renal labs Subjective Date of service: 03/13/22 Principal diagnosis: Upper GI bleed Interval history: Resting in bed this AM, comfortable on 2L NC. No acute events noted Objective - Exam Narrative Exam: General appearance: well-developed EENT: ATNC Respiratory: Present: Clear to Auscultation Cardiology: regular, S1S2 Gastrointestinal: no tenderness, distended Integumentary: warm and dry Neurologic: alert and oriented x3 Psychiatric: cooperative - Vital Signs Vital signs: Vital Signs - 12hr 03/12/22 03/12/22 03/13/22 22:00 22:11 05:05 Temperature 98.9 F 98.9 F Pulse Rate 90 95 H Respiratory 16 16 Rate Blood Pressure 109/58 94/47 O2 Sat by Pulse 98 97 96 Oximetry - Lab 03/13/22 05:47 03/13/22 05:47 Most recent lab results ABG pH 7.450 pH Units (7.350-7.450) 03/11/22 13:18 ABG pCO2 40.2 mm Hg 03/11/22 13:18 ABG pO2 122.3 mm Hg (80.0-90.0) H 03/11/22 13:18 ABG HCO3 27.3 mmol/L (20.0-26.0) H 03/11/22 13:18 ABG O2 Saturation 98.4 % (95.0-99.0) 03/11/22 13:18 Calcium 8.2 mg/dL (8.4-10.2) L 03/13/22 05:47 Phosphorus 2.90 mg/dL (2.5-4.5) 03/10/22 04:32 Magnesium 1.90 mg/dL (1.7-2.3) 03/10/22 04:32 Medications & Allergies - Medications Allergies/Adverse Reactions: Allergies Penicillins Allergy (Verified 03/03/22 17:17) Rash Home Medications: Home Medications Medication Instructions Recorded Confirmed Last Taken Type FLUoxetine [PROzac] 20 mg PO QDAY #30 capsule 04/27/16 12/30/16 Unknown Rx Folic Acid 1 tab PO QDAY #30 tab 04/27/16 12/30/16 Unknown Rx Multivitamin Tab [Multiple Vitamin 1 each PO ONCE #30 tablet 04/27/16 12/30/16 Unknown Rx TAB (Theragran)] Thiamine [Vitamin B-1] 100 mg PO QDAY #30 tablet 04/27/16 12/30/16 Unknown Rx traZODone [Desyrel] 50 mg PO QHS #30 tab 04/27/16 12/30/16 Unknown Rx chlordiazePOXIDE [Librium] 25 mg PO Q6H #10 capsule 08/11/20 Unknown Rx Active Medications: Generic Name Dose Route Start Last Admin Trade Name Freq PRN Reason Stop Dose Admin Albuterol 2.5 mg 03/12/22 04:22 Albuterol 2.5 Mg/3 Ml Nebu IH Q4HRT PRN Shortness Of Breath Fluoxetine HCl 20 mg 03/13/22 10:00 Fluoxetine 20 Mg Cap PO QDAY FABIEN Folic Acid 1 mg 03/13/22 10:00 Folic Acid 1 Mg Tab PO QDAY [facility] Hydrophilic Ointment 1 applic 03/04/22 10:47 Lip Therapy Vaseline TP Q2HR PRN Dry Lips Sodium Chloride 100 mls @ 999 mls/hr 03/09/22 08:58 Nacl 0.9% IV PETRA PRN Hypotension Lactulose 20 gm 03/13/22 10:00 Lactulose 20 Gm/30 Ml Oral Liqd PO QDAY FABIEN Midodrine 10 mg 03/12/22 12:00 03/12/22 15:04 Midodrine 10 Mg Tab PO 10 mg TID@0800,1200,1600 FABIEN Administration Morphine Sulfate 1 mg 03/11/22 00:14 03/12/22 21:44 Morphine 2 Mg/1 Ml Inj IV 1 mg Q4H PRN Administration Pain, Moderate (4-6) Ondansetron HCl 4 mg 03/04/22 00:02 03/10/22 23:53 Ondansetron 4 Mg/2 Ml Inj IV 4 mg Q8H PRN Administration Nausea And Vomiting Pantoprazole Sodium 40 mg 03/13/22 07:30 03/13/22 09:05 Pantoprazole 40 Mg Tab PO 40 mg QDAC FABIEN Administration Rifaximin 550 mg 03/12/22 22:00 03/12/22 21:42 Rifaximin 550 Mg Tab PO 550 mg BID FABIEN Administration Sodium Bicarbonate 1,300 mg 03/05/22 14:00 03/13/22 09:05 Sodium Bicarbonate 650 Mg Tab PO 1,300 mg TID FABIEN Administration Sodium Chloride 10 ml 03/04/22 10:00 03/12/22 21:02 Sodium Chloride 0.9% 10 Ml Flush Syringe IV 10 ml BID FABIEN Administration Sodium Chloride 10 ml 03/04/22 00:02 Sodium Chloride 0.9% 10 Ml Flush Syringe IV PRN PRN LINE FLUSH Thiamine HCl 100 mg 03/13/22 10:00 Thiamine 100 Mg Tab PO QDAY FABIEN
[2022-03-13] MEDS ORDERED: ALBUMIN HUMAN 25% (25 GM/100 ML) INJ IV NR (10:08)
[2022-03-13] MEDS: MIDODRINE 10 MG TAB PO SCH ×3 (10:15→16:38)
[2022-03-13] MEDS: LACTULOSE 20 GM/30 ML ORAL LIQD PO SCH ×2 (10:18→10:22)
[2022-03-13] MEDS: THIAMINE 100 MG TAB PO SCH (10:18)
[2022-03-13] MEDS: FOLIC ACID 1 MG TAB PO SCH (10:18)
[2022-03-13] MEDS: RIFAXIMIN 550 MG TAB PO SCH ×2 (10:18→22:11)
[2022-03-13] MEDS: FLUoxetine 20 MG CAP PO SCH (10:19)
[2022-03-14] MEDS ORDERED: KETOROLAC 30 MG/1 ML INJ IV SCH (06:45)
[2022-03-14] MEDS: PANTOPRAZOLE 40 MG TAB PO SCH (08:54)
[2022-03-14] MEDS: SODIUM BICARBONATE 650 MG TAB PO SCH ×2 (08:54→13:41)
[2022-03-14] MEDS: MIDODRINE 10 MG TAB PO SCH ×2 (08:54→13:41)
--- NOTE | 2022-03-14 09:27 | Progress Note ---
Assessment and Plan Impression * Acute kidney injury vs ROSEMARY on CKD --HD initiated at [facility] in 01/2022 * Acute hypoxic respiratory failure, s/p intubation * Cirrhosis * Anemia secondary to acute blood loss/GI bleed --s/p EGD on 03/04/2022 with distal esophageal ulcer, duodenal ulcer, portal hypertensive gastropathy. No active bleeding. * Esophageal/duodenal ulcer * Metabolic acidosis * Hypotension, secondary to ABL * Thrombocytopenia * Acute encephalopathy Plan: * Continue HD MWF schedule for electrolyte, volume management * S/p HD yesterday, due tomorrow. No need for HD today * Adjust K bath with dialysis * Note uptrending creatinine off HD, less likely with renal recovery at this time * Transfuse for hemoglobin less than 7 * ESAs with HD * Strict I/O * Dose medications for renal function * Avoid nephrotoxins * Diet per GI/primary team * Daily renal labs Subjective Date of service: 03/14/22 Principal diagnosis: Upper GI bleed Interval history: Sitting up in bed, eating breakfast. No issues noted with HD yesterday Objective - Exam Narrative Exam: General appearance: well-developed EENT: ATNC Respiratory: Present: Clear to Auscultation Cardiology: regular, S1S2 Gastrointestinal: no tenderness, distended Integumentary: warm and dry Neurologic: alert and oriented x3 Psychiatric: cooperative - Vital Signs Vital signs: Vital Signs - 12hr 03/13/22 03/14/22 03/14/22 22:09 06:29 07:26 Temperature 99.2 F 99.6 F Pulse Rate 93 H 47 L Respiratory 18 18 Rate Blood Pressure 107/56 102/65 O2 Sat by Pulse 95 96 96 Oximetry - Lab 03/13/22 05:47 03/13/22 05:47 Most recent lab results ABG pH 7.450 pH Units (7.350-7.450) 03/11/22 13:18 ABG pCO2 40.2 mm Hg 03/11/22 13:18 ABG pO2 122.3 mm Hg (80.0-90.0) H 03/11/22 13:18 ABG HCO3 27.3 mmol/L (20.0-26.0) H 03/11/22 13:18 ABG O2 Saturation 98.4 % (95.0-99.0) 03/11/22 13:18 Calcium 8.2 mg/dL (8.4-10.2) L 03/13/22 05:47 Phosphorus 2.90 mg/dL (2.5-4.5) 03/10/22 04:32 Magnesium 1.90 mg/dL (1.7-2.3) 03/10/22 04:32 Medications & Allergies - Medications Allergies/Adverse Reactions: Allergies Penicillins Allergy (Verified 03/03/22 17:17) Rash Home Medications: Home Medications Medication Instructions Recorded Confirmed Last Taken Type FLUoxetine [PROzac] 20 mg PO QDAY #30 capsule 04/27/16 03/14/22 Unknown Rx Folic Acid 1 tab PO QDAY #30 tab 04/27/16 03/14/22 Unknown Rx Multivitamin Tab [Multiple Vitamin 1 each PO ONCE #30 tablet 04/27/16 03/14/22 Unknown Rx TAB (Theragran)] Thiamine [Vitamin B-1] 100 mg PO QDAY #30 tablet 04/27/16 03/14/22 Unknown Rx traZODone [Desyrel] 50 mg PO QHS #30 tab 04/27/16 03/14/22 Unknown Rx chlordiazePOXIDE [Librium] 25 mg PO Q6H #10 capsule 08/11/20 03/14/22 Unknown Rx Active Medications: Generic Name Dose Route Start Last Admin Trade Name Shaji PRN Reason Stop Dose Admin Albuterol 2.5 mg 03/12/22 04:22 Albuterol 2.5 Mg/3 Ml Nebu IH Q4HRT PRN Shortness Of Breath Fluoxetine HCl 20 mg 03/13/22 10:00 03/13/22 10:19 Fluoxetine 20 Mg Cap PO 20 mg QDAY FABIEN Administration Folic Acid 1 mg 03/13/22 10:00 03/13/22 10:18 Folic Acid 1 Mg Tab PO 1 mg QDAY FABIEN Administration Hydrophilic Ointment 1 applic 03/04/22 10:47 Lip Therapy Vaseline TP Q2HR PRN Dry Lips Sodium Chloride 100 mls @ 999 mls/hr 03/09/22 08:58 Nacl 0.9% IV PETRA PRN Hypotension Ketorolac Tromethamine 15 mg 03/14/22 06:45 03/14/22 06:56 Ketorolac 30 Mg/1 Ml Inj IV 03/14/22 10:45 15 mg ONCE@0645 FABIEN Administration Lactulose 20 gm 03/13/22 10:00 03/13/22 10:22 Lactulose 20 Gm/30 Ml Oral Liqd PO Not Given QDAY FABIEN Midodrine 10 mg 03/12/22 12:00 03/14/22 08:54 Midodrine 10 Mg Tab PO 10 mg TID@0800,1200,1600 FABIEN Administration Morphine Sulfate 1 mg 03/11/22 00:14 03/12/22 21:44 Morphine 2 Mg/1 Ml Inj IV 1 mg Q4H PRN Administration Pain, Moderate (4-6) Ondansetron HCl 4 mg 03/04/22 00:02 03/10/22 23:53 Ondansetron 4 Mg/2 Ml Inj IV 4 mg Q8H PRN Administration Nausea And Vomiting Pantoprazole Sodium 40 mg 03/13/22 07:30 03/14/22 08:54 Pantoprazole 40 Mg Tab PO 40 mg QDAC FABIEN Administration Rifaximin 550 mg 03/12/22 22:00 03/13/22 22:11 Rifaximin 550 Mg Tab PO 550 mg BID FABIEN Administration Sodium Bicarbonate 1,300 mg 03/05/22 14:00 03/14/22 08:54 Sodium Bicarbonate 650 Mg Tab PO 1,300 mg TID FABIEN Administration Sodium Chloride 10 ml 03/04/22 10:00 03/13/22 22:11 Sodium Chloride 0.9% 10 Ml Flush Syringe IV 10 ml BID FABIEN Administration Sodium Chloride 10 ml 03/04/22 00:02 Sodium Chloride 0.9% 10 Ml Flush Syringe IV PRN PRN LINE FLUSH Thiamine HCl 100 mg 03/13/22 10:00 03/13/22 10:18 Thiamine 100 Mg Tab PO 100 mg QDAY FABIEN Administration
--- NOTE | 2022-03-14 10:00 | Discharge Summary ---
Providers - Providers Date of Admission: 03/04/22 00:03 Date of discharge: 03/14/22 Attending physician: TRELL FLOOD 03/03/22 22:32 Consult to Physician [CONS] Stat Comment: Dr. Roach spoke with Dr. Stephen @ [phone] Consulting Provider: CORIN STEPHEN Physician Instructions: Reason For Exam: GI bleed 03/03/22 23:37 Consult to Physician [CONS] Stat Comment: Dr. Roach spoke with Dr. Valente @ [phone] Consulting Provider: MOSES VALENTE Physician Instructions: Reason For Exam: ROSEMARY Consult to Physician [CONS] Stat Comment: Dr. Roach spoke with Dr. Steele @ [phone] Consulting Provider: ALEXANDRA DIAZ Physician Instructions: Reason For Exam: ICU 03/04/22 10:47 Consult to Dietitian/Nutrition [CONS] Routine Physician Instructions: Reason For Exam: Reason for Consult: Evaluate nutritional intake 03/07/22 14:12 Consult to Dietitian/Nutrition [CONS] Stat Physician Instructions: Reason For Exam: Reason for Consult: Write/Manage Tube Feeding 03/07/22 14:23 Consult to Dietitian/Nutrition [CONS] Routine Physician Instructions: Assess nutrtn needs, initiate, modify, manage TF Reason For Exam: Reason for Consult: Write/Manage Tube Feeding Reason for Consult: Write/Manage Tube Feeding 03/08/22 14:29 Consult to PICC Line RN [CONS] Routine Reason For Exam: vasopressor Type Line:: PICC 03/11/22 14:00 Speech Therapy Evaluation and Treat [CONS] Routine Reason For Exam: s/p extubation 03/12/22 13:54 Occupational Therapy Evaluate and Treat [CONS] Routine Comment: Reason For Exam: weakness Physical Therapy Evaluation and Treat [CONS] Routine Comment: Reason For Exam: weakness Primary care physician: ARNALDO MONTES Hospitalization Reason for admission: SOB Condition: Critical Hospital course: This is a 51-year-old female with EtOH cirrhosis,HFpEF, recent PEA arrest at [facility] (01/2022), CKD on HD who presented to emergency department via EMS on 03/04 with altered mental status. Upon arrival to the emergency department patient's blood pressure was 90/50, tachycardic and confused. Patient also had some blood in her mouth and melena. Work-up the emergency department revealed a H/H of 5.8/17.2, BUN/creatinine of 86/5.5, ammonia 141, tox screen essentially negative, CXR showed increased pulmonary vascularity with mild to moderate interstitial pulmonary edema with no pneumothorax and CT of the abdomen/pelvis showed cirrhosis with portal hypertension including splenomegaly and large volume ascites. Patient was started on a PPI and octreotide drip and given a blood transfusion. Patient was admitted to the hospital service for Acute blood loss anemia 2/2 Upper GIBwith consults to GI, CCM and nephrology. Hospital course to date: 03/04: Patient had EGD. GI consult and follow-up/procedure appreciated. Patient has a clean base white ulcer at the GE junction without any active bleeding. No obvious associated esophageal varices found. Distal esophagitis. Diffuse portal hypertensive gastropathy changes in the gastric body. A large area of ulceration in the duodenal sweep without high risk stigmata or active bleeding found. 03/05: Patient remains intubated and sedated. On protonix and octreotide gtt per GI. No report of any bleeding overnight. GI recommendations noted. Worsen renal function this morning with anuria, on continuous IVF for now. Per Nephro no indication for HD at this time. Will switch IVF to D51/2NS, close monitor of BG level. Continue to monitor H&H, coags, and liver function. US paracentesis pending. D/W CCM plan to rest patient on the vent over the weekend, will attempt SAT/SBT in the am. 03-06 paracentesis completed 03-07 failed SBT; was agitated overnight (got ativan x 2) 03/08: Patient failed SBT x2, patient remained on Levophed. This afternoon she was started on hemodialysis and Levophed requirements increased. PICC line consulted for PICC placement which was okayed with nephrology. [facility] placed CVL this evening. 03/09: Patient failed SBT again this morning however she does follow commands intermittently. No acute events reported overnight. Levophed remains at 2. 03/10: CPAP today. Plan to last on CPAP as long as tolerated. Off levophed gtt. 03/11: No acute events reported overnight, remains off Levophed. Patient was extubated this afternoon. Formal speech evaluation pending. 03/12: Passed bedside swallow eval yesterday, remains off levophed, reamins on RA to NC. Producing 2-3 BM per day 03/13: Hypotensive on encounter. Ordered Albumin 50 mg IV x 1. Possible d/c tomorrow. Dispo: home. Hospital course by disease process Neuro: Hepatic encephalopathy (resolved), h/o EtOH abuse -s/p Precedex drip -Reorientation as needed -Maintain sleep-wake cycle -As needed analgesia -CT head shows no acute focal parenchymal lesion -CIWA protocol -Lactulose p.o. daily Cardiac: Hypotension 2/2 to blood loss anemia (resolved) -Blood pressure monitoring per protocol -s/p vasopressor support with Levophed -Midodrine 10 mg TID Respiratory: Acute hypoxic respiratory failure -CCM consulted, appreciate recommendations -Intubated on 03/04 with a 7.50 ETT at 22 the lips for EGD and extubated 03/11 -Supplemental oxygenation as needed -Pulmonary hygiene -SPO2 monitoring GI: Upper GI bleed (resolved), esophageal/duodenal ulcer, alcoholic liver cirrhosis with ascites -GI consulted, appreciate recommendations -Abdomen/pelvis CT without contrast shows cirrhosis with portal hypertension including splenomegaly and large volume ascites, 5.4 cm left adnexal dermoid -S/p EGD on 03/04 which showed blood in the oropharynx, clean base without ulcer at the GE junction without active bleeding, LA grade B esophagitis at the distal esophagus, retained food/fluid debris's in the gastric fundus and body, diffuse portal hypertensive gastropathy changes in the gastric body with no active bleeding, large area of ulceration in the duodenal sweep without high risk stigmata or active bleeding. -S/p PPI and octreotide drip -S/p paracentesis on 03/06 with removal of 7 Liters -24 hours + 1210 mL -PPI -Passed beside swallow eval->awaiting ST eval -BR: Lactulose -Rifaximin : Acute on chronic renal failure, Acute tubular necrosis, Chornic Kidney disease, metabolic acidosis -Nephrology consulted, appreciate recommendations -Monitor intake and output -HD per nephrology (MWF) -Bicarb TID -Senior catheter discontinued 03/06 -Bladder scan nightly -Renally dose medications -Avoid nephrotoxic medications -Renal ultrasound shows left renal cyst -Trend BMP ID: NAD -s/p Rocephin for 7 days -Rifaximin -f/u blood culture -Monitor WBC and temperature curve Endo: NAD -Avoid hypoglycemia -SSI -Accu-Cheks q. 6 Heme: Acute blood loss anemia, thrombocytopenia -Presented with melena and hematemesis -s/p 3 units prbc and vit K -Trend CBC -Transfuse hemoglobin less than 7 -SCDs to BLE while in bed Disposition: 01 HOME / SELF CARE / HOMELESS Final Discharge Diagnosis (Prints w/discharge instructions): Hepatic encephalopathy, EtOH abuse, blood loss anemia, acute hypoxic respiratory failure, upper GI bleed, esophageal/duodenal ulcer, alcoholic liver cirrhosis, ascites, acute on chronic renal failure, acute tubular necrosis, chronic kidney disease, metabolic acidosis, thrombocytopenia Core Measure Documentation - Palliative Care Palliative Care/ Comfort Measures: Not Applicable - Core Measures Any of the following diagnoses?: none Exam - Constitutional Vitals: Temp Pulse Resp BP Pulse Ox 99.6 F 47 L 18 102/65 96 03/14/22 06:29 03/14/22 06:29 03/14/22 06:29 03/14/22 06:29 03/14/22 07:26 General appearance: Present: no acute distress, well-nourished - EENT Eyes: Present: PERRL ENT: hearing intact, clear oral mucosa - Neck Neck: Present: supple, normal ROM - Respiratory Respiratory effort: normal Respiratory: bilateral: CTA - Cardiovascular Heart Sounds: Present: S1 & S2. Absent: rub, click - Extremities Extremities: pulses symmetrical, No edema Peripheral Pulses: within normal limits - Abdominal General gastrointestinal: Present: soft, non-tender, non-distended, normal bowel sounds Female genitourinary: Present: normal - Integumentary Integumentary: Present: clear, warm, dry - Musculoskeletal Musculoskeletal: gait normal, strength equal bilaterally - Psychiatric Psychiatric: appropriate mood/affect, intact judgment & insight - Neurologic Neurologic: CNII-XII intact, moves all extremities Plan Activity: advance as tolerated Weight Bearing Status: Weight Bear as Tolerated Diet: low cholesterol, low salt Follow up with: ARNALDO MONTES MD [Primary Care Provider] - 3-5 Days Prescriptions: Lactulose [Cephulac] 20 gm PO QDAY #30 oral.liqd traZODone [Desyrel] 50 mg PO QHS #30 tab Folic Acid [Folvite] 1 mg PO QDAY #30 tablet chlordiazePOXIDE [Librium] 25 mg PO Q6H #10 capsule Midodrine [Proamatine] 10 mg PO TID@0800,1200,1600 #90 tablet Pantoprazole [Protonix TAB] 40 mg PO QDAC #30 tablet FLUoxetine [PROzac] 20 mg PO QDAY #30 capsule FLUoxetine [PROzac] 20 mg PO QDAY #30 capsule Sodium Bicarbonate 1,300 mg PO TID #90 tablet Thiamine [Vitamin B-1] 100 mg PO QDAY #30 tablet Thiamine [Vitamin B-1] 100 mg PO QDAY #30 tablet Rifaximin [Xifaxan] 550 mg PO BID #60 tablet
[2022-03-14] MEDS: RIFAXIMIN 550 MG TAB PO SCH (11:04)
[2022-03-14] MEDS: FOLIC ACID 1 MG TAB PO SCH (11:04)
[2022-03-14] MEDS: LACTULOSE 20 GM/30 ML ORAL LIQD PO SCH (11:04)
[2022-03-14] MEDS: THIAMINE 100 MG TAB PO SCH (11:04)
[2022-03-14] MEDS: FLUoxetine 20 MG CAP PO SCH (11:04)
[2022-03-14 11:26] VITALS: BP 105/59
== END 2022-03-14 17:35 | disposition home health service (06) | DRG 380 ==
LOC: ED 16:59 → CC1 03-04 00:03 → 3A 03-12 16:15
PROVIDERS: ADMIT Internal Medicine Geriatric Medicine; ATTEND Hospitalist
PROC: 4A033R1 Measurement of Arterial Saturation, Peripheral, Percutaneous Approach (ICD-10-PCS; 2022-03-03)
PROC: 5A1955Z Respiratory Ventilation, Greater than 96 Consecutive Hours (ICD-10-PCS; principal; 2022-03-04)
PROC: 0BH17EZ Insertion of Endotracheal Airway into Trachea, Via Natural or Artificial Opening (ICD-10-PCS; 2022-03-04)
PROC: 0DJ08ZZ Inspection of Upper Intestinal Tract, Via Natural or Artificial Opening Endoscopic (ICD-10-PCS; 2022-03-04)
PROC: 5A1D70Z Performance of Urinary Filtration, Intermittent, Less than 6 Hours Per Day (ICD-10-PCS; 2022-03-06)
PROC: 0W9G3ZZ Drainage of Peritoneal Cavity, Percutaneous Approach (ICD-10-PCS; 2022-03-06)
PROC: 5A1D70Z Performance of Urinary Filtration, Intermittent, Less than 6 Hours Per Day (ICD-10-PCS; 2022-03-08)
PROC: 02HV33Z Insertion of Infusion Device into Superior Vena Cava, Percutaneous Approach (ICD-10-PCS; 2022-03-08)
PROC: B548ZZA Ultrasonography of Superior Vena Cava, Guidance (ICD-10-PCS; 2022-03-08)
PROC: 5A1D70Z Performance of Urinary Filtration, Intermittent, Less than 6 Hours Per Day (ICD-10-PCS; 2022-03-10)
PROC: 5A1D70Z Performance of Urinary Filtration, Intermittent, Less than 6 Hours Per Day (ICD-10-PCS; 2022-03-13)
DX: K22.11 Ulcer of esophagus with bleeding (principal); J96.01 Acute respiratory failure with hypoxia; G93.41 Metabolic encephalopathy; N18.6 End stage renal disease; N17.0 Acute kidney failure with tubular necrosis; D62 Acute posthemorrhagic anemia; I50.30 Unspecified diastolic (congestive) heart failure; K26.4 Chronic or unspecified duodenal ulcer with hemorrhage; K70.31 Alcoholic cirrhosis of liver with ascites; K72.90 Hepatic failure, unspecified without coma; F17.200 Nicotine dependence, unspecified, uncomplicated; F10.10 Alcohol abuse, uncomplicated; Y90.9 Presence of alcohol in blood, level not specified; I95.9 Hypotension, unspecified; E87.6 Hypokalemia; D69.6 Thrombocytopenia, unspecified; E83.42 Hypomagnesemia; D72.829 Elevated white blood cell count, unspecified; Z88.0 Allergy status to penicillin; Z90.49 Acquired absence of other specified parts of digestive tract
CPT/HCPCS: 36415; 36600; 49083; 70450; 71045; 74018; 74176; 76770; 80048; 80053; 80061; 80074; 80320; 81001; 82040; 82140; 82270; 82550; 82803; 82962; 83735; 84100; 84160; 84484; 85007; 85014; 85018; 85025; 85027; 85049; 85610; 86850; 86900; 86901; 86920; 87040; 87070; 87205; 89051; 94002; 94003; 94640; 94760; G0378; J2354; J2501; J3490; J7070; J7121; C1729; C9113; G0480; J0171; J0330; J0696; J1885; J2060; J2270; J2370; J2405; J2704; J3010; J3430; J3475; J3480; J7030; P9016; P9047

== ENCOUNTER 2022-03-16 19:04 | Emergency (ER) | payer SELFPAY ==
[2022-03-16] MEDS ORDERED: LACTULOSE 20 GM/30 ML ORAL LIQD PO ONE ×2 (19:42→19:43)
[2022-03-16 20:33] LABS: Albumin 2.5 g/dL (3.9-5); Bilirubin,Direct 1.7 mg/dL (0-0.2); Calcium 8.6 mg/dL (8.4-10.2)
[2022-03-16 20:36] LABS: Hematocrit 23.4 % (30.3-42.9); Hemoglobin 7.9 gm/dl (10.1-14.3); Mean Corpuscular HGB Conc 34 % (30-34); Mean Corpuscular Volume 100 fl (79-97); Red Blood Count 2.35 M/mm3 (3.65-5.03)
[2022-03-16 20:45] LABS: Platelet Count 86 K/mm3 (140-440); Red Cell Distribution Width 27.6 % (13.2-15.2)
[2022-03-16 22:01] LABS: Basophils % (Manual) 0 % (0.0-1.8); Monocytes % (Manual) 0 % (0.0-7.3); Total Cells Counted 100
[2022-03-16 22:02] LABS: Hypochromasia 1+
[2022-03-16 22:03] LABS: Anisocytosis 2+; Platelet Estimate Consistent w Auto
--- NOTE | 2022-03-16 22:42 | Emergency Department Report ---
ED Altered Mental Status HPI - General Chief Complaint: Altered Mental Status Stated Complaint: HEPATIC ENCEPHALOPATHY Time Seen by Provider: 03/16/22 19:28 Source: EMS Mode of arrival: Stretcher Limitations: Altered Mental Status - History of Present Illness Initial Comments: Patient is a 51-year-old female with history of cirrhosis brought in by EMS for altered mental status and suspected hepatic encephalopathy. She was admitted here earlier this month and discharged 2 days ago for hepatic encephalopathy, upper GI bleed, acute on chronic renal failure and blood loss anemia. EMS reports patient was combative and confused requiring physical restraint. - Related Data Previous Rx's Medication Instructions Recorded Last Taken Type Folic Acid 1 tab PO QDAY #30 tab 04/27/16 Unknown Rx Multivitamin Tab [Multiple Vitamin 1 each PO ONCE #30 tablet 04/27/16 Unknown Rx TAB (Theragran)] FLUoxetine [PROzac] 20 mg PO QDAY #30 capsule 03/14/22 Unknown Rx FLUoxetine [PROzac] 20 mg PO QDAY #30 capsule 03/14/22 Unknown Rx Folic Acid [Folvite] 1 mg PO QDAY #30 tablet 03/14/22 Unknown Rx Lactulose [Cephulac] 20 gm PO QDAY #30 oral.liqd 03/14/22 Unknown Rx Midodrine [Proamatine] 10 mg PO TID@0800,1200,1600 #90 03/14/22 Unknown Rx tablet Pantoprazole [Protonix TAB] 40 mg PO QDAC #30 tablet 03/14/22 Unknown Rx Rifaximin [Xifaxan] 550 mg PO BID #60 tablet 03/14/22 Unknown Rx Sodium Bicarbonate 1,300 mg PO TID #90 tablet 03/14/22 Unknown Rx Thiamine [Vitamin B-1] 100 mg PO QDAY #30 tablet 03/14/22 Unknown Rx Thiamine [Vitamin B-1] 100 mg PO QDAY #30 tablet 03/14/22 Unknown Rx chlordiazePOXIDE [Librium] 25 mg PO Q6H #10 capsule 03/14/22 Unknown Rx traZODone [Desyrel] 50 mg PO QHS #30 tab 03/14/22 Unknown Rx Allergies Allergy/AdvReac Type Severity Reaction Status Date / Time Penicillins Allergy Rash Verified 03/16/22 19:11 ED Review of Systems ROS: Stated complaint: HEPATIC ENCEPHALOPATHY Other details as noted in HPI Constitutional: denies: chills, fever ED Past Medical Hx - Past Medical History Hx Hypertension: No Hx Congestive Heart Failure: No Hx Diabetes: No Hx Asthma: No Hx COPD: No Additional medical history: ALCOHOLIC, LIVER CA, ON DIALYSIS - Surgical History Hx Cholecystectomy: Yes Additional Surgical History: HYSTERECTOMY - Social History Smoking Status: Unknown if ever smoked - Medications Home Medications: Home Medications Medication Instructions Recorded Confirmed Last Taken Type Folic Acid 1 tab PO QDAY #30 tab 04/27/16 03/14/22 Unknown Rx Multivitamin Tab [Multiple Vitamin 1 each PO ONCE #30 tablet 04/27/16 03/14/22 Unknown Rx TAB (Theragran)] FLUoxetine [PROzac] 20 mg PO QDAY #30 capsule 03/14/22 Unknown Rx FLUoxetine [PROzac] 20 mg PO QDAY #30 capsule 03/14/22 Unknown Rx Folic Acid [Folvite] 1 mg PO QDAY #30 tablet 03/14/22 Unknown Rx Lactulose [Cephulac] 20 gm PO QDAY #30 oral.liqd 03/14/22 Unknown Rx Midodrine [Proamatine] 10 mg PO TID@0800,1200,1600 #90 03/14/22 Unknown Rx tablet Pantoprazole [Protonix TAB] 40 mg PO QDAC #30 tablet 03/14/22 Unknown Rx Rifaximin [Xifaxan] 550 mg PO BID #60 tablet 03/14/22 Unknown Rx Sodium Bicarbonate 1,300 mg PO TID #90 tablet 03/14/22 Unknown Rx Thiamine [Vitamin B-1] 100 mg PO QDAY #30 tablet 03/14/22 Unknown Rx Thiamine [Vitamin B-1] 100 mg PO QDAY #30 tablet 03/14/22 Unknown Rx chlordiazePOXIDE [Librium] 25 mg PO Q6H #10 capsule 03/14/22 Unknown Rx traZODone [Desyrel] 50 mg PO QHS #30 tab 03/14/22 Unknown Rx ED Physical Exam - General Limitations: Altered Mental Status General appearance: other (Patient is awake however appears altered and possibly encephalopathic. She is yelling intermittently with nonsensical speech) - Head Head exam: Present: atraumatic, normocephalic - Eye Eye exam: Present: normal appearance, PERRL, EOMI - Respiratory Respiratory exam: Present: normal lung sounds bilaterally. Absent: respiratory distress - Cardiovascular Cardiovascular Exam: Present: normal rhythm, tachycardia, normal heart sounds - GI/Abdominal GI/Abdominal exam: Present: soft, distended (Abdomen mildly distended). Absent: tenderness - Rectal Rectal exam: Present: deferred - Psychiatric Psychiatric exam: Present: agitated - Skin Skin exam: Present: warm, dry, intact, normal color ED Course Vital Signs 03/16/22 03/16/22 03/16/22 19:07 19:30 19:36 Temperature 98.2 F 98.9 F Pulse Rate 125 H 100 H Respiratory 16 25 H 18 Rate Blood Pressure 139/60 Blood Pressure 134/79 [Left] O2 Sat by Pulse 97 94 100 Oximetry 03/16/22 19:45 Temperature Pulse Rate 118 H Respiratory 17 Rate Blood Pressure 130/69 Blood Pressure [Left] O2 Sat by Pulse 96 Oximetry - Lab Data Result diagrams: 03/16/22 20:01 03/16/22 20:01 Lab Results 03/16/22 03/16/22 03/16/22 Range/Units 20:01 20:01 20:01 WBC 7.8 (4.5-11.0) K/mm3 RBC 2.35 L (3.65-5.03) M/mm3 Hgb 7.9 L (10.1-14.3) gm/dl Hct 23.4 L (30.3-42.9) % MCV 100 H (79-97) fl MCH 34 H (28-32) pg MCHC 34 (30-34) % RDW 27.6 H (13.2-15.2) % Plt Count 86 L (140-440) K/mm3 Add Manual Diff Complete Total Counted 100 Seg Neuts % (Manual) 91.0 H (40.0-70.0) % Band Neutrophils % 0 % Lymphocytes % (Manual) 8.0 L (13.4-35.0) % Reactive Lymphs % (Man) 0 % Monocytes % (Manual) 0 (0.0-7.3) % Eosinophils % (Manual) 1.0 (0.0-4.3) % Basophils % (Manual) 0 (0.0-1.8) % Metamyelocytes % 0 % Myelocytes % 0 % Promyelocytes % 0 % Blast Cells % 0 % Nucleated RBC % Not Reportable Seg Neutrophils # Man 7.1 (1.8-7.7) K/mm3 Band Neutrophils # 0.0 K/mm3 Lymphocytes # (Manual) 0.6 L (1.2-5.4) K/mm3 Abs React Lymphs (Man) 0.0 K/mm3 Monocytes # (Manual) 0.0 (0.0-0.8) K/mm3 Eosinophils # (Manual) 0.1 (0.0-0.4) K/mm3 Basophils # (Manual) 0.0 (0.0-0.1) K/mm3 Metamyelocytes # 0.0 K/mm3 Myelocytes # 0.0 K/mm3 Promyelocytes # 0.0 K/mm3 Blast Cells # 0.0 K/mm3 WBC Morphology Not Reportable Hypersegmented Neuts Not Reportable Hyposegmented Neuts Not Reportable Hypogranular Neuts Not Reportable Smudge Cells Not Reportable Toxic Granulation Not Reportable Toxic Vacuolation Not Reportable Dohle Bodies Not Reportable Pelger-Huet Anomaly Not Reportable Kevin Rods Not Reportable Platelet Estimate Consistent w auto Clumped Platelets Not Reportable Plt Clumps, EDTA Not Reportable Large Platelets Not Reportable Giant Platelets Not Reportable Platelet Satelliting Not Reportable Plt Morphology Comment Not Reportable RBC Morphology Not Reportable Dimorphic RBCs Not Reportable Polychromasia Not Reportable Hypochromasia 1+ Poikilocytosis Not Reportable Anisocytosis 2+ Microcytosis Not Reportable Macrocytosis Not Reportable Spherocytes Not Reportable Pappenheimer Bodies Not Reportable Sickle Cells Not Reportable Target Cells Not Reportable Tear Drop Cells Not Reportable Ovalocytes Not Reportable Helmet Cells Not Reportable Johnson-Heyburn Bodies Not Reportable Wayside Rings Not Reportable Brixey Cells Not Reportable Bite Cells Not Reportable Crenated Cell Not Reportable Elliptocytes Not Reportable Acanthocytes (Spur) Not Reportable Rouleaux Not Reportable Hemoglobin C Crystals Not Reportable Schistocytes Not Reportable Malaria parasites Not Reportable Kiran Bodies Not Reportable Hem Pathologist Commnt No Sodium 136 L (137-145) mmol/L Potassium 3.7 (3.6-5.0) mmol/L Chloride 98.0 (98-107) mmol/L Carbon Dioxide 25 (22-30) mmol/L Anion Gap 17 mmol/L BUN 38 H (7-17) mg/dL Creatinine 4.4 H (0.6-1.2) mg/dL Estimated GFR 11 ml/min BUN/Creatinine Ratio 9 % Glucose 104 H (65-100) mg/dL Calcium 8.6 (8.4-10.2) mg/dL Total Bilirubin 3.40 H (0.1-1.2) mg/dL Direct Bilirubin 1.7 H (0-0.2) mg/dL Indirect Bilirubin 1.7 mg/dL AST 37 (5-40) units/L ALT 20 (7-56) units/L Alkaline Phosphatase 165 H (35-129) units/L Ammonia 24.0 L (25-60) umol/L Total Protein 6.4 (6.3-8.2) g/dL Albumin 2.5 L (3.9-5) g/dL Albumin/Globulin Ratio 0.6 % Salicylates (2.8-20.0) mg/dL Acetaminophen (10.0-30.0) ug/mL Plasma/Serum Alcohol (0-0.07) % 03/16/22 03/16/22 03/16/22 Range/Units 21:16 21:16 21:16 WBC (4.5-11.0) K/mm3 RBC (3.65-5.03) M/mm3 Hgb (10.1-14.3) gm/dl Hct (30.3-42.9) % MCV (79-97) fl MCH (28-32) pg MCHC (30-34) % RDW (13.2-15.2) % Plt Count (140-440) K/mm3 Add Manual Diff Total Counted Seg Neuts % (Manual) (40.0-70.0) % Band Neutrophils % % Lymphocytes % (Manual) (13.4-35.0) % Reactive Lymphs % (Man) % Monocytes % (Manual) (0.0-7.3) % Eosinophils % (Manual) (0.0-4.3) % Basophils % (Manual) (0.0-1.8) % Metamyelocytes % % Myelocytes % % Promyelocytes % % Blast Cells % % Nucleated RBC % Seg Neutrophils # Man (1.8-7.7) K/mm3 Band Neutrophils # K/mm3 Lymphocytes # (Manual) (1.2-5.4) K/mm3 Abs React Lymphs (Man) K/mm3 Monocytes # (Manual) (0.0-0.8) K/mm3 Eosinophils # (Manual) (0.0-0.4) K/mm3 Basophils # (Manual) (0.0-0.1) K/mm3 Metamyelocytes # K/mm3 Myelocytes # K/mm3 Promyelocytes # K/mm3 Blast Cells # K/mm3 WBC Morphology Hypersegmented Neuts Hyposegmented Neuts Hypogranular Neuts Smudge Cells Toxic Granulation Toxic Vacuolation Dohle Bodies Pelger-Huet Anomaly Kevin Rods Platelet Estimate Clumped Platelets Plt Clumps, EDTA Large Platelets Giant Platelets Platelet Satelliting Plt Morphology Comment RBC Morphology Dimorphic RBCs Polychromasia Hypochromasia Poikilocytosis Anisocytosis Microcytosis Macrocytosis Spherocytes Pappenheimer Bodies Sickle Cells Target Cells Tear Drop Cells Ovalocytes Helmet Cells Johnson-Heyburn Bodies Wayside Rings [place] Cells Bite Cells Crenated Cell Elliptocytes Acanthocytes (Spur) Rouleaux Hemoglobin C Crystals Schistocytes Malaria parasites Kiran Bodies Hem Pathologist Commnt Sodium (137-145) mmol/L Potassium (3.6-5.0) mmol/L Chloride (98-107) mmol/L Carbon Dioxide (22-30) mmol/L Anion Gap mmol/L BUN (7-17) mg/dL Creatinine (0.6-1.2) mg/dL Estimated GFR ml/min BUN/Creatinine Ratio % Glucose (65-100) mg/dL Calcium (8.4-10.2) mg/dL Total Bilirubin (0.1-1.2) mg/dL Direct Bilirubin (0-0.2) mg/dL Indirect Bilirubin mg/dL AST (5-40) units/L ALT (7-56) units/L Alkaline Phosphatase (35-129) units/L Ammonia (25-60) umol/L Total Protein (6.3-8.2) g/dL Albumin (3.9-5) g/dL Albumin/Globulin Ratio % Salicylates < 0.3 L (2.8-20.0) mg/dL Acetaminophen 5.0 L (10.0-30.0) ug/mL Plasma/Serum Alcohol < 0.01 (0-0.07) % - Medical Decision Making Chemistry reveals chronically elevated BUN and creatinine which appears to be near baseline also chronically elevated LFTs. Ammonia level is surprisingly normal. H&H 7.9 and 23.4. Patient keeps asking "Am I ? "and saying "I know I am ". Serum alcohol, urinalysis and UDS are pending. Differential diagnosis includes metabolic encephalopathy and acute psychosis. Currently there are no admission criteria met as her hepatic and renal issues are chronic. Will obtain mental health assessment while in ED once remaining labs are resu lted. Critical care attestation.: If time is entered above; I have spent that time in minutes in the direct care of this critically ill patient, excluding procedure time. ED Disposition Condition: Stable Referrals: ARNALDO MONTES MD [Primary Care Provider] - 3-5 Days
[2022-03-17] MEDS ORDERED: MULTIVITAMINS ,THERAPEUTIC TAB PO ONE (05:00)
[2022-03-17] MEDS: chlordiazePOXIDE 25 MG CAP PO SCH ×2 (06:19→12:43)
[2022-03-17] MEDS ORDERED: PANTOPRAZOLE 40 MG TAB PO SCH (07:30)
[2022-03-17] MEDS: MIDODRINE 10 MG TAB PO SCH ×3 (08:09→16:12)
[2022-03-17] MEDS: SODIUM BICARBONATE 650 MG TAB PO SCH ×3 (08:09→22:21)
[2022-03-17] MEDS: FLUoxetine 20 MG CAP PO SCH (10:02)
[2022-03-17] MEDS: RIFAXIMIN 550 MG TAB PO SCH (10:02)
[2022-03-17] MEDS: FOLIC ACID 1 MG TAB PO SCH (10:02)
[2022-03-17] MEDS: THIAMINE 100 MG TAB PO SCH (10:02)
[2022-03-17] MEDS: LACTULOSE 20 GM/30 ML ORAL LIQD PO SCH (10:02)
--- NOTE | 2022-03-17 13:46 | XRay Report ---
XR chest 1V ap INDICATION / CLINICAL INFORMATION: esrd on hemodialysis. COMPARISON: 03/11/2022 FINDINGS: SUPPORT DEVICES: Right IJ CVC is stable. Other support devices have been removed. HEART /PULMONARY VASCULATURE: No significant abnormality. LUNGS / PLEURA: Diminished lung volumes. No focal infiltrate. No sizable pleural effusion. No pneumot horax. IMPRESSION: No acute findings. No significant interval change from prior study. Signer Name: Catrachito Harrell MD Signed: 03/17/2022 1:41 PM Workstation Name: [id number]
[2022-03-17] MEDS ORDERED: LORazepam 2 MG/ML VIAL IV ONE (15:21)
--- NOTE | 2022-03-17 16:37 | Consultation ---
History of Present Illness - Reason for Consult Consult date: 03/16/22 Reason for consult: MHE - History of Present Psychiatric Illness HPI 51 year old female brought in for altered mental status. Patient seen in the ER, but unable to obtain any information from her. called daughters number listed on file [phone] ( Demetria Watts) and ( Joel) and both phones keep going to [facility]. Patient will be admitted to inpatient at this time. Patient is not able to engage in meaningful conversation. Psychiatric Review of Systems: Unable to obtain due to patient factors Social History Unable to obtain due to patient factors Family Psychiatric History Records reviewed. No pertinent family history. Allergies As listed above Review of Systems: Unable to assess due to patient factors Physical Exam: Chest: Chest inspection reveals normal expansion. Normal respiratory effort. Skin: Warm and dry with normal turgor Mental Status Exam: Unable to assess due to patient factors Psychiatric Diagnoses: Recommendations: MEDICATIONS: Risperidone M-Tab 0.5mg po bid for delirium Geodon 10mg im q12h prn severe agitation Wellness Alevism/Preservation: - Start Trazodone 50mg po QHS MEDICAL: Per primary team DELIRIUM PRECAUTIONS: Please TURN OFF THE TV, re-orient patient frequently, keep lights on during the day, and minimize benzodiazepines and opiates as these med ications could worsen patient's confusion. GROMMET MAN: Defer to primary DISPOSITION: Per primary team; no indication for acute inpatient psychiatric hospitalization at this time LEGAL STATUS: Voluntary FOLLOW-UP:Will follow I have reviewed this treatment plan, including potential risks and benefits of medications. Please contact with any questions and/or concerns. Medications and Allergies Allergies Allergy/AdvReac Type Severity Reaction Status Date / Time Penicillins Allergy Rash Verified 03/16/22 19:11 Home Medications Medication Instructions Recorded Confirmed Last Taken Type Folic Acid 1 tab PO QDAY #30 tab 04/27/16 03/14/22 Unknown Rx Multivitamin Tab [Multiple Vitamin 1 each PO ONCE #30 tablet 04/27/16 03/14/22 Unknown Rx TAB (Theragran)] FLUoxetine [PROzac] 20 mg PO QDAY #30 capsule 03/14/22 Unknown Rx FLUoxetine [PROzac] 20 mg PO QDAY #30 capsule 03/14/22 Unknown Rx Folic Acid [Folvite] 1 mg PO QDAY #30 tablet 03/14/22 Unknown Rx Lactulose [Cephulac] 20 gm PO QDAY #30 oral.liqd 03/14/22 Unknown Rx Midodrine [Proamatine] 10 mg PO TID@0800,1200,1600 #90 03/14/22 Unknown Rx tablet Pantoprazole [Protonix TAB] 40 mg PO QDAC #30 tablet 03/14/22 Unknown Rx Rifaximin [Xifaxan] 550 mg PO BID #60 tablet 03/14/22 Unknown Rx Sodium Bicarbonate 1,300 mg PO TID #90 tablet 03/14/22 Unknown Rx Thiamine [Vitamin B-1] 100 mg PO QDAY #30 tablet 03/14/22 Unknown Rx Thiamine [Vitamin B-1] 100 mg PO QDAY #30 tablet 03/14/22 Unknown Rx chlordiazePOXIDE [Librium] 25 mg PO Q6H #10 capsule 03/14/22 Unknown Rx traZODone [Desyrel] 50 mg PO QHS #30 tab 03/14/22 Unknown Rx Active Meds: Active Medications Chlordiazepoxide HCl (Chlordiazepoxide 25 Mg Cap) 25 mg PO Q6HR [facility] Last Admin: 03/17/22 12:43 Dose: Not Given Fluoxetine HCl (Fluoxetine 20 Mg Cap) 20 mg PO QDAY [facility] Last Admin: 03/17/22 10:02 Dose: Not Given Folic Acid (Folic Acid 1 Mg Tab) 1 mg PO QDAY [facility] Last Admin: 03/17/22 10:02 Dose: Not Given Lactulose (Lactulose 20 Gm/30 Ml Oral Liqd) 20 gm PO QDAY [facility] Last Admin: 03/17/22 10:02 Dose: Not Given Midodrine (Midodrine 10 Mg Tab) 10 mg PO TID@0800,1200,1600 [facility] Last Admin: 03/17/22 16:12 Dose: Not Given Pantoprazole Sodium (Pantoprazole 40 Mg Tab) 40 mg PO QDAC [facility] Last Admin: 03/17/22 07:44 Dose: 40 mg Rifaximin (Rifaximin 550 Mg Tab) 550 mg PO BID [facility] Last Admin: 03/17/22 10:02 Dose: Not Given Sodium Bicarbonate (Sodium Bicarbonate 650 Mg Tab) 1,300 mg PO TID [facility] Last Admin: 03/17/22 14:36 Dose: Not Given Thiamine HCl (Thiamine 100 Mg Tab) 100 mg PO QDAY [facility] Last Admin: 03/17/22 10:02 Dose: Not Given Trazodone HCl (Trazodone 50 Mg Tab) 50 mg PO QHS [facility] Mental Status Exam - Vital signs Last Vital Signs Temp 98.9 F 03/16/22 19:36 Pulse 107 H 03/17/22 16:01 Resp 16 03/17/22 16:01 BP 110/44 03/17/22 16:01 Pulse Ox 96 03/17/22 16:01 Results Result Diagrams: 03/16/22 20:01 03/16/22 20:01 Abnormal lab results 03/16/22 03/16/22 03/16/22 Range/Units 20:01 20:01 20:01 RBC 2.35 L (3.65-5.03) M/mm3 Hgb 7.9 L (10.1-14.3) gm/dl Hct 23.4 L (30.3-42.9) % MCV 100 H (79-97) fl MCH 34 H (28-32) pg RDW 27.6 H (13.2-15.2) % Plt Count 86 L (140-440) K/mm3 Seg Neuts % (Manual) 91.0 H (40.0-70.0) % Lymphocytes % (Manual) 8.0 L (13.4-35.0) % Lymphocytes # (Manual) 0.6 L (1.2-5.4) K/mm3 Sodium 136 L (137-145) mmol/L BUN 38 H (7-17) mg/dL Creatinine 4.4 H (0.6-1.2) mg/dL Glucose 104 H (65-100) mg/dL Total Bilirubin 3.40 H (0.1-1.2) mg/dL Direct Bilirubin 1.7 H (0-0.2) mg/dL Alkaline Phosphatase 165 H (35-129) units/L Ammonia 24.0 L (25-60) umol/L Albumin 2.5 L (3.9-5) g/dL Salicylates (2.8-20.0) mg/dL Acetaminophen (10.0-30.0) ug/mL 03/16/22 03/16/22 Range/Units 21:16 21:16 RBC (3.65-5.03) M/mm3 Hgb (10.1-14.3) gm/dl Hct (30.3-42.9) % MCV (79-97) fl MCH (28-32) pg RDW (13.2-15.2) % Plt Count (140-440) K/mm3 Seg Neuts % (Manual) (40.0-70.0) % Lymphocytes % (Manual) (13.4-35.0) % Lymphocytes # (Manual) (1.2-5.4) K/mm3 Sodium (137-145) mmol/L BUN (7-17) mg/dL Creatinine (0.6-1.2) mg/dL Glucose (65-100) mg/dL Total Bilirubin (0.1-1.2) mg/dL Direct Bilirubin (0-0.2) mg/dL Alkaline Phosphatase (35-129) units/L Ammonia (25-60) umol/L Albumin (3.9-5) g/dL Salicylates < 0.3 L (2.8-20.0) mg/dL Acetaminophen 5.0 L (10.0-30.0) ug/mL All other labs normal.
--- NOTE | 2022-03-17 19:00 | Event Note ---
Date: 03/17/22 Chart reviewed. Pt was medically cleared by Dr. Theresa Gautam and he subsequently placed the pt on a 1013 hold with a mental health consultation request placed. [address] Pt assessed by me. She is calm, but observed to be talking to herself, and mumbling to herself as well. SHe is moving all of her extremities and is in no extremis. She is AOx2 (person, place alone). Pt awaits formal consultation/evaluation by psychiatry.
--- NOTE | 2022-03-17 20:59 | Cat Scan Report ---
CT HEAD WITHOUT CONTRAST INDICATION / CLINICAL INFORMATION: altered mental status. TECHNIQUE: All CT scans at this location are performed using CT dose reduction for ALARA by means of automated e xposure control. COMPARISON: Head CT 03/04/2022 FINDINGS: HEMORRHAGE: No evidence of intracranial hemorrhage or extra-axial fluid collection. EXTRA-AXIAL SPACES: Cortical sulci, sylvian fissures and basilar cisterns have an unremarkable appear ance. VENTRICULAR SYSTEM: The third and lateral ventricles are of normal size and configuration. CEREBRAL PARENCHYMA: No areas of abnormal brain parenchymal attenuation are identified. There is no i ndication of recent infarction. MIDLINE SHIFT OR HERNIATION: There is no mass effect. CEREBELLUM / BRAINSTEM: Brainstem and cerebellum have an unremarkable appearance. MIDLINE STRUCTURES:No abnormalities of the pituitary gland or pineal region are identified. INTRACRANIAL VESSELS:No abnormalities are identified on this noncontrast head CT. ORBITS: visualized portions of the orbits have an unremarkable appearance. SOFT TISSUES of HEAD: No significant abnormality. CALVARIUM: Evaluation of bone windows reveals no abnormalities. PARANASAL SINUSES / MASTOID AIR CELLS: Visualized portions of the paranasal sinuses are free from inf lammatory mucosal disease. Mastoid air cells are normally pneumatized. IMPRESSION: 1. No significant intercranial abnormality on head CT without contrast. No interval change since rece nt previous study dated 03/04/2022 Signer Name: Win Moulton MD Signed: 03/17/2022 8:55 PM Workstation Name: [id number]
[2022-03-17] MEDS ORDERED: traZODone 50 MG TAB PO SCH (22:00)
[2022-03-18] MEDS: RIFAXIMIN 550 MG TAB PO SCH ×2 (01:59→10:58)
[2022-03-18] MEDS: chlordiazePOXIDE 25 MG CAP PO SCH ×2 (01:59→03:33)
[2022-03-18] MEDS ORDERED: ZIPRASIDONE MESYLATE 20 MG VIAL IM ONE (03:35)
[2022-03-18] MEDS ORDERED: ZIPRASIDONE MESYLATE 20 MG VIAL IM PRN (10:22)
--- NOTE | 2022-03-18 10:27 | Progress Note ---
Subjective - Reason for Consult Reason for consult: MHE - Chief Complaint Chief complaint: Patient seen today in the ER. Patient still lethargic and unable to communicate. Nurse reports patient has been like that since yesterday. No changes at this time. Review of Systems: Unable to assess due to patient factors Physical Exam: Chest: Chest inspection reveals normal expansion. Normal respiratory effort. Skin: Warm and dry with normal turgor Mental Status Exam: Unable to assess due to patient factors Psychiatric Diagnoses: Recommendations: MEDICATIONS: Risperidone M-Tab 0.5mg po bid for delirium Geodon 10mg im q12h prn severe agitation Wellness Congregational/Preservation: - Start Trazodone 50mg po QHS MEDICAL: Per primary team DELIRIUM PRECAUTIONS: Please TURN OFF THE TV, re-orient patient frequently, keep lights on during the day, and minimize benzodiazepines and opiates as these medications could worsen patient's confusion. 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 Please contact with any questions and/or concerns. Mental Status Exam - Vital signs Last Vital Signs Temp 98.5 F 03/17/22 20:30 Pulse 97 H 03/18/22 02:17 Resp 22 03/18/22 02:17 BP 102/50 03/18/22 02:17 Pulse Ox 96 03/18/22 02:17
[2022-03-18] MEDS ORDERED: SODIUM CHLORIDE 0.9% 1000 ML 1,000 ML ONE (10:46)
[2022-03-18] MEDS: SODIUM BICARBONATE 650 MG TAB PO SCH (10:57)
[2022-03-18] MEDS: MIDODRINE 10 MG TAB PO SCH (10:57)
[2022-03-18] MEDS: LACTULOSE 20 GM/30 ML ORAL LIQD PO SCH (10:57)
[2022-03-18] MEDS: FLUoxetine 20 MG CAP PO SCH (10:58)
[2022-03-18] MEDS: FOLIC ACID 1 MG TAB PO SCH (10:58)
[2022-03-18] MEDS: THIAMINE 100 MG TAB PO SCH (10:58)
[2022-03-18] MEDS ORDERED: SODIUM CHLORIDE 0.9% 1000 ML 1,000 ML IV ONE (10:59)
[2022-03-18] MEDS ORDERED: NORepinephrine/NS 8 MG-250 ML 8 MG/250 ML INFUS..BTL IV SCH (13:00)
--- NOTE | 2022-03-18 14:33 | Event Note ---
Date: 03/18/22 Patient persistently hypotensive this morning despite IV fluids, will initiate pressors and admit patient to the hospital for further management. Care transferred to the hospitalist Dr. Nava
--- NOTE | 2022-03-18 14:59 | Consultation ---
History of Present Illness - Reason for Consult Consult date: 03/18/22 Hypotensioni Requesting physician: RAY HOGUE - History of Present Illness 51 YO Female with Psychosis, HE, ESRD on HD presents to ED with recurrent psychosis. Consult placed for hypertension. Patient seen and evaluated emergency department. Lab and imaging studies reviewed. Patient found to be at baseline level of cognition and function. Patient admitted to [facility] on 03/04/2022 and discharged on 03/14/2022. Patient is at baseline level of cognition and function. No source of sepsis. Patient was placed on IV pressor support however patient does not exhibit source of infection and blood pressure remains at baseline. Patient does not meet admission criteria at this time. No clinical value and IV pressor support. Patient medically optimized at this time. Reconsult hospitalist service if further questions. Past History Past Medical History: ESRD Past Surgical History: Other (Dialysis access) Social history: single. denies: smoking, alcohol abuse, prescription drug abuse Family history: hypertension Medications and Allergies Allergies Allergy/AdvReac Type Severity Reaction Status Date / Time Penicillins Allergy Rash Verified 03/16/22 19:11 Home Medications Medication Instructions Recorded Confirmed Last Taken Type Folic Acid 1 tab PO QDAY #30 tab 04/27/16 03/14/22 Unknown Rx Multivitamin Tab [Multiple Vitamin 1 each PO ONCE #30 tablet 04/27/16 03/14/22 Unknown Rx TAB (Theragran)] FLUoxetine [PROzac] 20 mg PO QDAY #30 capsule 03/14/22 Unknown Rx FLUoxetine [PROzac] 20 mg PO QDAY #30 capsule 03/14/22 Unknown Rx Folic Acid [Folvite] 1 mg PO QDAY #30 tablet 03/14/22 Unknown Rx Lactulose [Cephulac] 20 gm PO QDAY #30 oral.liqd 03/14/22 Unknown Rx Midodrine [Proamatine] 10 mg PO TID@0800,1200,1600 #90 03/14/22 Unknown Rx tablet Pantoprazole [Protonix TAB] 40 mg PO QDAC #30 tablet 03/14/22 Unknown Rx Rifaximin [Xifaxan] 550 mg PO BID #60 tablet 03/14/22 Unknown Rx Sodium Bicarbonate 1,300 mg PO TID #90 tablet 03/14/22 Unknown Rx Thiamine [Vitamin B-1] 100 mg PO QDAY #30 tablet 03/14/22 Unknown Rx Thiamine [Vitamin B-1] 100 mg PO QDAY #30 tablet 03/14/22 Unknown Rx chlordiazePOXIDE [Librium] 25 mg PO Q6H #10 capsule 03/14/22 Unknown Rx traZODone [Desyrel] 50 mg PO QHS #30 tab 03/14/22 Unknown Rx Active Meds: Active Medications Chlordiazepoxide HCl (Chlordiazepoxide 25 Mg Cap) 25 mg PO Q6HR [facility] Last Admin: 03/18/22 03:33 Dose: 25 mg Fluoxetine HCl (Fluoxetine 20 Mg Cap) 20 mg PO QDAY [facility] Last Admin: 03/18/22 10:58 Dose: Not Given Folic Acid (Folic Acid 1 Mg Tab) 1 mg PO QDAY [facility] Last Admin: 03/18/22 10:58 Dose: Not Given NORepinephrine/NS 8 MG-250 ML (Norepinephrine/Ns 8 Mg-250 Ml (Double Conc)) 8 mg in 250 mls @ 3.75 mls/hr IV TITRATE [facility]; Protocol Last Titration: 03/18/22 13:28 Dose: 0 mcg/min, 0 mls/hr Lactulose (Lactulose 20 Gm/30 Ml Oral Liqd) 20 gm PO QDAY [facility] Last Admin: 03/18/22 10:57 Dose: Not Given Midodrine (Midodrine 10 Mg Tab) 10 mg PO TID@0800,1200,1600 [facility] Last Admin: 03/18/22 10:57 Dose: Not Given Pantoprazole Sodium (Pantoprazole 40 Mg Tab) 40 mg PO QDAC [facility] Last Admin: 03/17/22 07:44 Dose: 40 mg Rifaximin (Rifaximin 550 Mg Tab) 550 mg PO BID [facility] Last Admin: 03/18/22 10:58 Dose: Not Given Risperidone (Risperidone 0.25 Mg Tab) 0.5 mg PO BID [facility] Sodium Bicarbonate (Sodium Bicarbonate 650 Mg Tab) 1,300 mg PO TID [facility] Last Admin: 03/18/22 10:57 Dose: Not Given Thiamine HCl (Thiamine 100 Mg Tab) 100 mg PO QDAY [facility] Last Admin: 03/18/22 10:58 Dose: Not Given Trazodone HCl (Trazodone 50 Mg Tab) 50 mg PO QHS [facility] Last Admin: 03/18/22 02:00 Dose: 50 mg Ziprasidone (Ziprasidone Mesylate 20 Mg Vial) 10 mg IM Q12H PRN PRN Reason: Agitation Review of Systems ROS unobtainable: due to mental status Exam - Constitutional Vitals: Temp Pulse Resp BP Pulse Ox 98.5 F 90 18 99/76 97 03/17/22 20:30 03/18/22 13:49 03/18/22 13:49 03/18/22 13:49 03/18/22 13:49 General appearance: Present: no acute distress, well-nourished - EENT Eyes: Present: PERRL ENT: hearing intact, clear oral mucosa - Neck Neck: Present: supple, normal ROM - Respiratory Respiratory effort: normal Respiratory: bilateral: CTA - Cardiovascular Heart Sounds: Present: S1 & S2. Absent: rub, click - Extremities Extremities: pulses symmetrical, No edema Peripheral Pulses: within normal limits - Abdominal General gastrointestinal: Present: soft, non-tender, non-distended, normal bowel sounds Female genitourinary: Present: normal - Integumentary Integumentary: Present: clear, warm, dry - Musculoskeletal Musculoskeletal: gait normal, strength equal bilaterally - Psychiatric Psychiatric: no appropriate mood/affect, no intact judgment & insight - Neurologic Neurologic: CNII-XII intact, moves all extremities, gait normal Results - Labs CBC & Chem 7: 03/16/22 20:01 03/16/22 20:01 Assessment and Plan - Patient Problems (1) End stage renal disease Current Visit: Yes Status: Acute Plan to address problem: Patient to resume outpatient dialysis schedule as arranged by case management at previous discharge. (2) Advance care planning Current Visit: No Status: Acute Plan to address problem: Patient medically optimized. No active medical issues. Psychiatric management as per mental health care team.
[2022-03-18] MEDS ORDERED: SODIUM CHLORIDE 0.9% 1000 ML 2,000 ML IV SCH (15:04)
[2022-03-18 15:24] VITALS: BP 110/67
[2022-03-18] MEDS ORDERED: risperiDONE 0.25 MG TAB PO SCH (22:00)
== END 2022-03-18 21:54 | disposition home or self-care (01) ==
LOC: ED 19:04
DX: Z88.0 Allergy status to penicillin (principal); K72.90 Hepatic failure, unspecified without coma
CPT/HCPCS: 36415; 71045; 80048; 80076; 82140; 85007; 85025; 96360; 96361; 99285; J2354; J3486; J7030; 80320; 99284; G0480; J2060

== ENCOUNTER 2022-03-20 22:58 | Inpatient (IN) | payer SELFPAY ==
[2022-03-20] MEDS ORDERED: fentaNYL 100 MCG/2 ML INJ IV ONE (23:41)
--- NOTE | 2022-03-20 23:49 | Emergency Department Report ---
ED General Adult HPI - General Chief complaint: Pain General Stated complaint: BODY PAIN Time Seen by Provider: 03/20/22 23:27 Source: patient, EMS Mode of arrival: Stretcher Limitations: No Limitations - History of Present Illness Initial comments: 51 yo F with history of chronic bilateral lower leg ulcer and ESRD with dialysis on MWF who now present with generalized body aches for the last couple of days. Pt last dialysis was on Sunday so she missed session today. No fever or chills. No other modifying or associated factors. - Related Data Previous Rx's Medication Instructions Recorded Last Taken Type Folic Acid 1 tab PO QDAY #30 tab 04/27/16 Unknown Rx Multivitamin Tab [Multiple Vitamin 1 each PO ONCE #30 tablet 04/27/16 Unknown Rx TAB (Theragran)] FLUoxetine [PROzac] 20 mg PO QDAY #30 capsule 03/14/22 Unknown Rx FLUoxetine [PROzac] 20 mg PO QDAY #30 capsule 03/14/22 Unknown Rx Folic Acid [Folvite] 1 mg PO QDAY #30 tablet 03/14/22 Unknown Rx Lactulose [Cephulac] 20 gm PO QDAY #30 oral.liqd 03/14/22 Unknown Rx Midodrine [Proamatine] 10 mg PO TID@0800,1200,1600 #90 03/14/22 Unknown Rx tablet Pantoprazole [Protonix TAB] 40 mg PO QDAC #30 tablet 03/14/22 Unknown Rx Rifaximin [Xifaxan] 550 mg PO BID #60 tablet 03/14/22 Unknown Rx Sodium Bicarbonate 1,300 mg PO TID #90 tablet 03/14/22 Unknown Rx Thiamine [Vitamin B-1] 100 mg PO QDAY #30 tablet 03/14/22 Unknown Rx Thiamine [Vitamin B-1] 100 mg PO QDAY #30 tablet 03/14/22 Unknown Rx chlordiazePOXIDE [Librium] 25 mg PO Q6H #10 capsule 03/14/22 Unknown Rx traZODone [Desyrel] 50 mg PO QHS #30 tab 03/14/22 Unknown Rx Allergies Allergy/AdvReac Type Severity Reaction Status Date / Time Penicillins Allergy Rash Verified 03/16/22 19:11 ED Review of Systems ROS: Stated complaint: BODY PAIN Other details as noted in HPI Comment: All other systems reviewed and negative Constitutional: malaise, weakness Musculoskeletal: myalgia ED Past Medical Hx - Past Medical History Hx Hypertension: No Hx Congestive Heart Failure: No Hx Diabetes: No Hx Asthma: No Hx COPD: No Additional medical history: ALCOHOLIC, LIVER CA, ON DIALYSIS - Surgical History Hx Cholecystectomy: Yes Additional Surgical History: HYSTERECTOMY - Social History Smoking Status: Unknown if ever smoked - Medications Home Medications: Home Medications Medication Instructions Recorded Confirmed Last Taken Type Folic Acid 1 tab PO QDAY #30 tab 04/27/16 03/14/22 Unknown Rx Multivitamin Tab [Multiple Vitamin 1 each PO ONCE #30 tablet 04/27/16 03/14/22 Unknown Rx TAB (Theragran)] FLUoxetine [PROzac] 20 mg PO QDAY #30 capsule 03/14/22 Unknown Rx FLUoxetine [PROzac] 20 mg PO QDAY #30 capsule 03/14/22 Unknown Rx Folic Acid [Folvite] 1 mg PO QDAY #30 tablet 03/14/22 Unknown Rx Lactulose [Cephulac] 20 gm PO QDAY #30 oral.liqd 03/14/22 Unknown Rx Midodrine [Proamatine] 10 mg PO TID@0800,1200,1600 #90 03/14/22 Unknown Rx tablet Pantoprazole [Protonix TAB] 40 mg PO QDAC #30 tablet 03/14/22 Unknown Rx Rifaximin [Xifaxan] 550 mg PO BID #60 tablet 03/14/22 Unknown Rx Sodium Bicarbonate 1,300 mg PO TID #90 tablet 03/14/22 Unknown Rx Thiamine [Vitamin B-1] 100 mg PO QDAY #30 tablet 03/14/22 Unknown Rx Thiamine [Vitamin B-1] 100 mg PO QDAY #30 tablet 03/14/22 Unknown Rx chlordiazePOXIDE [Librium] 25 mg PO Q6H #10 capsule 03/14/22 Unknown Rx traZODone [Desyrel] 50 mg PO QHS #30 tab 03/14/22 Unknown Rx ED Physical Exam - General Limitations: No Limitations General appearance: alert, in no apparent distress - Head Head exam: Present: normal inspection - ENT ENT exam: Present: mucous membranes dry - Neck Neck exam: Absent: tenderness - Respiratory Respiratory exam: Present: normal lung sounds bilaterally. Absent: respiratory distress, accessory muscle use - Cardiovascular Cardiovascular Exam: Present: regular rate, normal rhythm, normal heart sounds - GI/Abdominal GI/Abdominal exam: Present: soft, normal bowel sounds. Absent: distended, tenderness - Extremities Exam Extremities exam: Present: pedal edema, other (chronic leg ulcer ) - Back Exam Back exam: Absent: tenderness - Neurological Exam Neurological exam: Present: alert, oriented X3 - Psychiatric Psychiatric exam: Present: anxious - Skin Skin exam: Present: warm, dry, other (chronic bilateral leg ulcer) ED Course Vital Signs 03/20/22 03/21/22 03/21/22 23:04 00:23 00:31 Temperature 98.3 F Pulse Rate 95 H 96 H 95 H Respiratory 16 21 13 Rate Blood Pressure 100/54 Blood Pressure 114/60 [Left] O2 Sat by Pulse 98 91 91 Oximetry 03/21/22 03/21/22 00:33 00:46 Temperature Pulse Rate 97 H Respiratory 16 16 Rate Blood Pressure 90/50 Blood Pressure [Left] O2 Sat by Pulse 96 92 Oximetry - Consultations Consultation #1: 03/21/22 02:04 Dr Montes consulted who accept pt for further evaluation and treatment -- he also agreed with putting in consult for nephrology in the morning for possible dialysis. ED Medical Decision Making - Lab Data Result diagrams: 03/21/22 00:09 03/21/22 00:09 - Medical Decision Making here with generalized muscle aches with h/o ESRD missed dialysis today -- likely the cause of symptoms so will go ahead and order routine labs including CBC, CMP and UA -- given Fentanyl 50 mcg for pain -- Lab reviewed and noted with low H&H more than patient baseline at 6.2/18.8 so will go ahead and given pRBC x 1 unit. Also noted with elevated BUN/Cr but seems to be within this patient baseline-- however because she is going to be transfused 1 unit that could potentially lead to fluid overload will consider admission and dialyze in the morning. Critical care attestation.: If time is entered above; I have spent that time in minutes in the direct care of this critically ill patient, excluding procedure time. ED Disposition Clinical Impression: Generalized body aches Chronic ulcer of leg Qualifiers: Laterality: unspecified laterality Non-pressure ulcer stage: unspecified non- pressure ulcer stage Qualified Code(s): L97.909 - Non-pressure chronic ulcer of unspecified part of unspecified lower leg with unspecified severity Anemia Qualifiers: Anemia type: unspecified type Qualified Code(s): D64.9 - Anemia, unspecified Disposition: 09 ADMITTED INPATIENT Is pt being admited?: Yes Does the pt Need Aspirin: No Condition: Stable Referrals: PRIMARY CARE, [Primary Care Provider] - 3-5 Days Time of Disposition: 02:05
[2022-03-21 00:31] LABS: Hemoglobin 6.2 gm/dl (10.1-14.3); Mean Corpuscular HGB Conc 33 % (30-34); Mean Corpuscular Volume 103 fl (79-97); Red Blood Count 1.83 M/mm3 (3.65-5.03)
[2022-03-21 00:39] LABS: Hematocrit 18.8 % (30.3-42.9); Platelet Count 69 K/mm3 (140-440); Red Cell Distribution Width 28.6 % (13.2-15.2)
[2022-03-21 00:43] LABS: Albumin 2.1 g/dL (3.9-5)
[2022-03-21] MEDS ORDERED: SODIUM CHLORIDE 0.9% 500 ML 500 ML IV ONE (01:55)
[2022-03-21] MEDS ORDERED: ALBUTEROL 2.5 MG/3 ML NEBU IH PRN (02:28)
[2022-03-21] MEDS ORDERED: ONDANSETRON 4 MG/2 ML INJ IV PRN (02:28)
[2022-03-21] MEDS ORDERED: MORPHINE 4 MG/1 ML INJ IV PRN (02:28)
[2022-03-21 02:30] LABS: Total Cells Counted 100
[2022-03-21 02:31] LABS: Anisocytosis 2+; Hypochromasia 1+
[2022-03-21 02:32] LABS: Platelet Estimate Consistent w Auto
--- NOTE | 2022-03-21 02:36 | History and Physical Report ---
History of Present Illness Date of examination: 03/21/22 Date of admission: 03/21/22 Chief complaint: Generalized body ache History of present illness: 51 yo F with history of chronic bilateral lower leg ulcer and ESRD with dialysis on MWF who now present with generalized body aches for the last couple of days. Pt last dialysis was on Sunday so she missed session today. No fever or chills. No other modifying or associated factors. In the emergency room patient is found to have hemoglobin of 6.2 and hematocrit 18.8, she will going to transfuse 1 unit of packed red blood cells also will consult nephrology for hemodialysis Past History Past Medical History: ESRD, renal failure, other (ALCOHOLIC, LIVER CA, ON DIALYSIS) Past Surgical History: cholecystectomy, hysterectomy Social history: alcohol abuse Family history: hypertension Medications and Allergies Allergies Allergy/AdvReac Type Severity Reaction Status Date / Time Penicillins Allergy Rash Verified 03/16/22 19:11 Home Medications Medication Instructions Recorded Confirmed Last Taken Type Folic Acid 1 tab PO QDAY #30 tab 04/27/16 03/14/22 Unknown Rx Multivitamin Tab [Multiple Vitamin 1 each PO ONCE #30 tablet 04/27/16 03/14/22 Unknown Rx TAB (Theragran)] FLUoxetine [PROzac] 20 mg PO QDAY #30 capsule 03/14/22 Unknown Rx FLUoxetine [PROzac] 20 mg PO QDAY #30 capsule 03/14/22 Unknown Rx Folic Acid [Folvite] 1 mg PO QDAY #30 tablet 03/14/22 Unknown Rx Lactulose [Cephulac] 20 gm PO QDAY #30 oral.liqd 03/14/22 Unknown Rx Midodrine [Proamatine] 10 mg PO TID@0800,1200,1600 #90 03/14/22 Unknown Rx tablet Pantoprazole [Protonix TAB] 40 mg PO QDAC #30 tablet 03/14/22 Unknown Rx Rifaximin [Xifaxan] 550 mg PO BID #60 tablet 03/14/22 Unknown Rx Sodium Bicarbonate 1,300 mg PO TID #90 tablet 03/14/22 Unknown Rx Thiamine [Vitamin B-1] 100 mg PO QDAY #30 tablet 03/14/22 Unknown Rx Thiamine [Vitamin B-1] 100 mg PO QDAY #30 tablet 03/14/22 Unknown Rx chlordiazePOXIDE [Librium] 25 mg PO Q6H #10 capsule 03/14/22 Unknown Rx traZODone [Desyrel] 50 mg PO QHS #30 tab 03/14/22 Unknown Rx Active Meds: Active Medications Acetaminophen (Acetaminophen 325 Mg Tab) 650 mg PO Q4H PRN PRN Reason: Pain MILD(1-3)/Fever >100.5/JOSEPH Albuterol (Albuterol 2.5 Mg/3 Ml Nebu) 2.5 mg IH Q3HRT PRN PRN Reason: Shortness Of Breath Albuterol/Ipratropium (Ipratropium/Albuterol Sulfate 3 Ml Ampul.Neb) 1 ampul IH Q6HRT [facility] Chlordiazepoxide HCl (Chlordiazepoxide 25 Mg Cap) 25 mg PO Q6H [facility] Famotidine (Famotidine 20 Mg Tab) 20 mg PO BID [facility] Fluoxetine HCl (Fluoxetine 20 Mg Cap) 20 mg PO QDAY [facility] Folic Acid (Folic Acid 1 Mg Tab) 1 mg PO QDAY [facility] Lactulose (Lactulose 20 Gm/30 Ml Oral Liqd) 20 gm PO QDAY [facility] Midodrine (Midodrine 10 Mg Tab) 10 mg PO TID@0800,1200,1600 [facility] Morphine Sulfate (Morphine 4 Mg/1 Ml Inj) 4 mg IV Q4H PRN PRN Reason: Pain , Severe (7-10) Morphine Sulfate (Morphine 2 Mg/1 Ml Inj) 2 mg IV Q4H PRN PRN Reason: Pain, Moderate (4-6) Multivitamins (Multivitamins ,Therapeutic Tab) 1 each PO ONCE [facility] Ondansetron HCl (Ondansetron 4 Mg/2 Ml Inj) 4 mg IV Q8H PRN PRN Reason: Nausea And Vomiting Rifaximin (Rifaximin 550 Mg Tab) 550 mg PO BID [facility] Sodium Bicarbonate (Sodium Bicarbonate 650 Mg Tab) 1,300 mg PO TID [facility] Sodium Chloride (Sodium Chloride 0.9% 10 Ml Flush Syringe) 10 ml IV BID [facility] Sodium Chloride (Sodium Chloride 0.9% 10 Ml Flush Syringe) 10 ml IV PRN PRN PRN Reason: LINE FLUSH Thiamine HCl (Thiamine 100 Mg Tab) 100 mg PO QDAY [facility] Trazodone HCl (Trazodone 50 Mg Tab) 50 mg PO QHS [facility] Review of Systems All systems: negative Constitutional: weakness, malaise, other (Myalgia, generalized body ache) Exam - Constitutional Vitals: Temp Pulse Resp BP Pulse Ox 98.3 F 97 H 16 90/50 92 03/20/22 23:04 03/21/22 00:46 03/21/22 00:46 03/21/22 00:46 03/21/22 00:46 General appearance: Present: no acute distress, well-nourished - EENT Eyes: Present: PERRL ENT: hearing intact, clear oral mucosa - Neck Neck: Present: supple, normal ROM - Respiratory Respiratory effort: normal Respiratory: bilateral: CTA - Cardiovascular Heart Sounds: Present: S1 & S2. Absent: rub, click - Extremities Extremities: pulses symmetrical, No edema Peripheral Pulses: within normal limits - Abdominal General gastrointestinal: Present: soft, non-tender, non-distended, normal bowel sounds Female genitourinary: Present: normal - Integumentary Integumentary: Present: clear, warm, dry - Musculoskeletal Musculoskeletal: gait normal, strength equal bilaterally - Psychiatric Psychiatric: appropriate mood/affect, intact judgment & insight - Neurologic Neurologic: CNII-XII intact, moves all extremities Results - Labs CBC & Chem 7: 03/21/22 00:09 03/21/22 00:09 Labs: Laboratory Last Values WBC 6.3 K/mm3 (4.5-11.0) 03/21/22 00:09 RBC 1.83 M/mm3 (3.65-5.03) L 03/21/22 00:09 Hgb 6.2 gm/dl (10.1-14.3) L 03/21/22 00:09 Hct 18.8 % (30.3-42.9) L* 03/21/22 00:09 MCV 103 fl (79-97) H 03/21/22 00:09 MCH 34 pg (28-32) H 03/21/22 00:09 MCHC 33 % (30-34) 03/21/22 00:09 RDW 28.6 % (13.2-15.2) H 03/21/22 00:09 Plt Count 69 K/mm3 (140-440) L 03/21/22 00:09 Baso % (Auto) Solid Waste Collector 03/21/22 00:09 Sodium 136 mmol/L (137-145) L 03/21/22 00:09 Potassium 4.4 mmol/L (3.6-5.0) 03/21/22 00:09 Chloride 101.9 mmol/L (98-107) 03/21/22 00:09 Carbon Dioxide 27 mmol/L (22-30) 03/21/22 00:09 Anion Gap 12 mmol/L 03/21/22 00:09 BUN 35 mg/dL (7-17) H 03/21/22 00:09 Creatinine 4.1 mg/dL (0.6-1.2) H 03/21/22 00:09 Estimated GFR 11 ml/min 03/21/22 00:09 BUN/Creatinine Ratio 9 % 03/21/22 00:09 Glucose 111 mg/dL (65-100) H 03/21/22 00:09 Lactic Acid 1.40 mmol/L (0.7-2.0) 03/21/22 00:09 Calcium 8.0 mg/dL (8.4-10.2) L 03/21/22 00:09 Total Bilirubin 2.40 mg/dL (0.1-1.2) H 03/21/22 00:09 AST 63 units/L (5-40) H 03/21/22 00:09 ALT 28 units/L (7-56) 03/21/22 00:09 Alkaline Phosphatase 145 units/L (35-129) H 03/21/22 00:09 Total Protein 6.2 g/dL (6.3-8.2) L 03/21/22 00:09 Albumin 2.1 g/dL (3.9-5) L 03/21/22 00:09 Albumin/Globulin Ratio 0.5 % 03/21/22 00:09 Assessment and Plan VTE prophylaxis?: Mechanical Plan of care discussed with patient/family: Yes - Patient Problems (1) Symptomatic anemia Current Visit: No Status: Acute Plan to address problem: Admit the patient to the medical floor. Transfuse 1 unit of packed red blood cell. Pepcid 20 mg p.o. twice daily. Will send the stool for guaiac if needed will consult GI for evaluation. Recheck CBC in the morning (2) End stage renal disease Current Visit: No Status: Acute Plan to address problem: Patient missed hemodialysis. Reconsult nephrology for dialysis in the morning. Recheck BMP in the morning (3) Generalized body aches Current Visit: Yes Status: Acute Plan to address problem: Tylenol 650 mg p.o. every 6 hours as needed. We will continue the home medication. We will monitor the patient closely (4) Chronic ulcer of leg Current Visit: Yes Status: Acute Qualifiers: Laterality: unspecified laterality Non-pressure ulcer stage: unspecified non-pressure ulcer stage Qualified Code(s): L97.909 - Non-pressure chronic ulcer of unspecified part of unspecified lower leg with unspecified severity Plan to address problem: Is stable. We will continue the home medication outpatient follow-up with wound care (5) Alcohol abuse Onset Date: 04/22/16 Current Visit: No Status: Acute Plan to address problem: We counseled regarding quit drinking. Patient is on folic acid 1 mg p.o. daily. Thiamine 100 mg p.o. daily and Librium 25 mg p.o. every 6 hours (6) DVT prophylaxis Current Visit: No Status: Acute Plan to address problem: SCD for DVT prophylaxis. Pepcid 20 mg p.o. twice daily for GI prophylaxis. Patient is a full code
[2022-03-21] MEDS ORDERED: MULTIVITAMINS ,THERAPEUTIC TAB PO ONE (03:20)
[2022-03-21] MEDS: chlordiazePOXIDE 25 MG CAP PO SCH ×4 (04:56→23:09)
[2022-03-21] MEDS: IPRATROPIUM/ALBUTEROL SULFATE 3 ML AMPUL.NEB IH SCH ×3 (07:48→20:54)
[2022-03-21] MEDS: SODIUM BICARBONATE 650 MG TAB PO SCH ×3 (08:15→20:03)
[2022-03-21] MEDS: MIDODRINE 10 MG TAB PO SCH ×3 (08:15→20:03)
--- NOTE | 2022-03-21 09:15 | Progress Note ---
Assessment and Plan Assessment and plan: -- Symptomatic anemia Transfuse 1 unit of packed red blood cell during dialysis today. Closely monitor H&H and transfuse additional PRBC as needed Procrit during dialysis --End stage renal disease Patient missed hemodialysis. Nephrology following HD per schedule, blood transfusion during dialysis --Generalized body aches Tylenol 650 mg p.o. every 6 hours as needed. Resume home medication. We will monitor the patient closely and adjust -- Chronic ulcer of leg Is stable. 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 Pepcid 20 mg p.o. twice daily for GI prophylaxis. Patient is a full code -- Full CODE STATUS --DC planning; Per case management and family Closely monitor the patient and adjust the management as needed Follow H&H night and tomorrow morning, follow nephrology recommendations Possible discharge tomorrow if stable and cleared by nephrology History Interval history: Have seen and examined the patient at the bedside this morning Patient's chart and medications reviewed Patient has severe anemia with hemoglobin of 6.2 Patient is scheduled for dialysis today at which time patient will receive blood Vital signs reviewed Hospitalist Physical - Constitutional Vitals: Temp Pulse Resp BP Pulse Ox 98.3 F 86 17 93/54 97 03/20/22 23:04 03/21/22 07:49 03/21/22 07:49 03/21/22 03:00 03/21/22 07:50 General appearance: Present: no acute distress, well-nourished, obese (Morbidly obese), other (Morbidly obese) - EENT Eyes: Present: PERRL, EOM intact ENT: hearing intact, clear oral mucosa - Neck Neck: Present: supple, normal ROM - Respiratory Respiratory effort: normal Respiratory: bilateral: diminished, rales, negative: rhonchi, wheezing - Cardiovascular Rhythm: regular Heart Sounds: Present: S1 & S2 - Extremities Extremities: no ischemia, No edema - Abdominal General gastrointestinal: soft, non-tender, non-distended, normal bowel sounds - Integumentary Integumentary: Present: clear, warm - Psychiatric Psychiatric: appropriate mood/affect, cooperative - Neurologic Neurologic: CNII-XII intact, moves all extremities Results - Labs CBC & Chem 7: 03/21/22 10:42 03/21/22 10:42 Labs: Laboratory Last Values WBC 6.3 K/mm3 (4.5-11.0) 03/21/22 00:09 RBC 1.83 M/mm3 (3.65-5.03) L 03/21/22 00:09 Hgb 6.2 gm/dl (10.1-14.3) L 03/21/22 00:09 Hct 18.8 % (30.3-42.9) L* 03/21/22 00:09 MCV 103 fl (79-97) H 03/21/22 00:09 MCH 34 pg (28-32) H 03/21/22 00:09 MCHC 33 % (30-34) 03/21/22 00:09 RDW 28.6 % (13.2-15.2) H 03/21/22 00:09 Plt Count 69 K/mm3 (140-440) L 03/21/22 00:09 Baso % (Auto) Research Physiologist 03/21/22 00:09 Add Manual Diff Complete 03/21/22 00:09 Total Counted 100 03/21/22 00:09 Seg Neuts % (Manual) 63.0 % (40.0-70.0) 03/21/22 00:09 Band Neutrophils % 0 % 03/21/22 00:09 Lymphocytes % (Manual) 26.0 % (13.4-35.0) 03/21/22 00:09 Reactive Lymphs % (Man) 0 % 03/21/22 00:09 Monocytes % (Manual) 6.0 % (0.0-7.3) 03/21/22 00:09 Eosinophils % (Manual) 4.0 % (0.0-4.3) 03/21/22 00:09 Basophils % (Manual) 1.0 % (0.0-1.8) 03/21/22 00:09 Metamyelocytes % 0 % 03/21/22 00:09 Myelocytes % 0 % 03/21/22 00:09 Promyelocytes % 0 % 03/21/22 00:09 Blast Cells % 0 % 03/21/22 00:09 Nucleated RBC % Not Reportable 03/21/22 00:09 Seg Neutrophils # Man 4.0 K/mm3 (1.8-7.7) 03/21/22 00:09 Band Neutrophils # 0.0 K/mm3 03/21/22 00:09 Lymphocytes # (Manual) 1.6 K/mm3 (1.2-5.4) 03/21/22 00:09 Abs React Lymphs (Man) 0.0 K/mm3 03/21/22 00:09 Monocytes # (Manual) 0.4 K/mm3 (0.0-0.8) 03/21/22 00:09 Eosinophils # (Manual) 0.3 K/mm3 (0.0-0.4) 03/21/22 00:09 Basophils # (Manual) 0.1 K/mm3 (0.0-0.1) 03/21/22 00:09 Metamyelocytes # 0.0 K/mm3 03/21/22 00:09 Myelocytes # 0.0 K/mm3 03/21/22 00:09 Promyelocytes # 0.0 K/mm3 03/21/22 00:09 Blast Cells # 0.0 K/mm3 03/21/22 00:09 WBC Morphology Not Reportable 03/21/22 00:09 Hypersegmented Neuts Not Reportable 03/21/22 00:09 Hyposegmented Neuts Not Reportable 03/21/22 00:09 Hypogranular Neuts Not Reportable 03/21/22 00:09 Smudge Cells Not Reportable 03/21/22 00:09 Toxic Granulation Not Reportable 03/21/22 00:09 Toxic Vacuolation Not Reportable 03/21/22 00:09 Dohle Bodies Not Reportable 03/21/22 00:09 Pelger-Huet Anomaly Not Reportable 03/21/22 00:09 Kevin Rods Not Reportable 03/21/22 00:09 Platelet Estimate Consistent w auto 03/21/22 00:09 Clumped Platelets Not Reportable 03/21/22 00:09 Plt Clumps, EDTA Not Reportable 03/21/22 00:09 Large Platelets Not Reportable 03/21/22 00:09 Giant Platelets Not Reportable 03/21/22 00:09 Platelet Satelliting Not Reportable 03/21/22 00:09 Plt Morphology Comment Not Reportable 03/21/22 00:09 RBC Morphology Not Reportable 03/21/22 00:09 Dimorphic RBCs Not Reportable 03/21/22 00:09 Polychromasia Not Reportable 03/21/22 00:09 Hypochromasia 1+ 03/21/22 00:09 Poikilocytosis Not Reportable 03/21/22 00:09 Anisocytosis 2+ 03/21/22 00:09 Microcytosis Not Reportable 03/21/22 00:09 Macrocytosis Not Reportable 03/21/22 00:09 Spherocytes Not Reportable 03/21/22 00:09 Pappenheimer Bodies Not Reportable 03/21/22 00:09 Sickle Cells Not Reportable 03/21/22 00:09 Target Cells Not Reportable 03/21/22 00:09 Tear Drop Cells Not Reportable 03/21/22 00:09 Ovalocytes Not Reportable 03/21/22 00:09 Helmet Cells Not Reportable 03/21/22 00:09 Johnson-Bradgate Bodies Not Reportable 03/21/22 00:09 Bryan Rings Not Reportable 03/21/22 00:09 Sparta Cells Not Reportable 03/21/22 00:09 Bite Cells Not Reportable 03/21/22 00:09 Crenated Cell Not Reportable 03/21/22 00:09 Elliptocytes Not Reportable 03/21/22 00:09 Acanthocytes (Spur) Not Reportable 03/21/22 00:09 Rouleaux Not Reportable 03/21/22 00:09 Hemoglobin C Crystals Not Reportable 03/21/22 00:09 Schistocytes Not Reportable 03/21/22 00:09 Malaria parasites Not Reportable 03/21/22 00:09 Kiran Bodies Not Reportable 03/21/22 00:09 Hem Pathologist Commnt No 03/21/22 00:09 Sodium 136 mmol/L (137-145) L 03/21/22 00:09 Potassium 4.4 mmol/L (3.6-5.0) 03/21/22 00:09 Chloride 101.9 mmol/L (98-107) 03/21/22 00:09 Carbon Dioxide 27 mmol/L (22-30) 03/21/22 00:09 Anion Gap 12 mmol/L 03/21/22 00:09 BUN 35 mg/dL (7-17) H 03/21/22 00:09 Creatinine 4.1 mg/dL (0.6-1.2) H 03/21/22 00:09 Estimated GFR 11 ml/min 03/21/22 00:09 BUN/Creatinine Ratio 9 % 03/21/22 00:09 Glucose 111 mg/dL (65-100) H 03/21/22 00:09 Lactic Acid 1.40 mmol/L (0.7-2.0) 03/21/22 00:09 Calcium 8.0 mg/dL (8.4-10.2) L 03/21/22 00:09 Total Bilirubin 2.40 mg/dL (0.1-1.2) H 03/21/22 00:09 AST 63 units/L (5-40) H 03/21/22 00:09 ALT 28 units/L (7-56) 03/21/22 00:09 Alkaline Phosphatase 145 units/L (35-129) H 03/21/22 00:09 Total Protein 6.2 g/dL (6.3-8.2) L 03/21/22 00:09 Albumin 2.1 g/dL (3.9-5) L 03/21/22 00:09 Albumin/Globulin Ratio 0.5 % 03/21/22 00:09 Blood Type O POSITIVE 03/21/22 05:35 Antibody Screen Negative 03/21/22 05:35 Crossmatch See Detail 03/21/22 05:35 Active Medications - Current Medications Current Medications: Generic Name Dose Route Start Last Admin Trade Name Freq PRN Reason Stop Dose Admin Acetaminophen 650 mg 03/21/22 02:28 Acetaminophen 325 Mg Tab PO Q4H PRN Pain MILD(1-3)/Fever >100.5/JOSEPH Albuterol 2.5 mg 03/21/22 02:28 Albuterol 2.5 Mg/3 Ml Nebu IH Q3HRT PRN Shortness Of Breath Albuterol/Ipratropium 1 ampul 03/21/22 08:00 03/21/22 07:48 Ipratropium/Albuterol Sulfate 3 Ml Ampul.Neb IH 1 ampul Q6HRT [facility] Administration Chlordiazepoxide HCl 25 mg 03/21/22 04:30 03/21/22 04:56 Chlordiazepoxide 25 Mg Cap PO 25 mg Q6HR [facility] Administration Famotidine 20 mg 03/21/22 10:00 Famotidine 20 Mg Tab PO QAM [facility] Fluoxetine HCl 20 mg 03/21/22 10:00 Fluoxetine 20 Mg Cap PO QDAY [facility] Folic Acid 1 mg 03/21/22 10:00 Folic Acid 1 Mg Tab PO QDAY [facility] Lactulose 20 gm 03/21/22 10:00 Lactulose 20 Gm/30 Ml Oral Liqd PO QDAY [facility] Midodrine 10 mg 03/21/22 08:00 Midodrine 10 Mg Tab PO TID@0800,1200,1600 [facility] Morphine Sulfate 4 mg 03/21/22 02:28 Morphine 4 Mg/1 Ml Inj IV Q4H PRN Pain , Severe (7-10) Morphine Sulfate 2 mg 03/21/22 02:28 Morphine 2 Mg/1 Ml Inj IV Q4H PRN Pain, Moderate (4-6) Ondansetron HCl 4 mg 03/21/22 02:28 Ondansetron 4 Mg/2 Ml Inj IV Q8H PRN Nausea And Vomiting Rifaximin 550 mg 03/21/22 10:00 Rifaximin 550 Mg Tab PO BID [facility] Sodium Bicarbonate 1,300 mg 03/21/22 08:00 Sodium Bicarbonate 650 Mg Tab PO TIDWM [facility] Sodium Chloride 10 ml 03/21/22 10:00 Sodium Chloride 0.9% 10 Ml Flush Syringe IV BID [facility] Sodium Chloride 10 ml 03/21/22 02:28 Sodium Chloride 0.9% 10 Ml Flush Syringe IV PRN PRN LINE FLUSH Thiamine HCl 100 mg 03/21/22 10:00 Thiamine 100 Mg Tab PO QDAY [facility] Trazodone HCl 50 mg 03/21/22 22:00 Trazodone 50 Mg Tab PO QHS [facility]
[2022-03-21] MEDS: RIFAXIMIN 550 MG TAB PO SCH ×2 (10:14→22:08)
[2022-03-21] MEDS ORDERED: SODIUM CHLORIDE 0.9% 100 ML IV PRN (10:57)
[2022-03-21] MEDS ORDERED: ALBUMIN HUMAN 25% (12.5 GM/50 ML) INJ IV PRN (10:58)
--- NOTE | 2022-03-21 10:59 | Consultation ---
History of Present Illness - Reason for Consult Consult date: 03/21/22 end stage renal disease Requesting physician: OLIVER SANTOYO - History of Present Illness This is a 51 yo F with history of chronic bilateral lower leg ulcer and ESRD with dialysis on MWF, currently does not have outpatient HD chair due to uninsured status, who now present with generalized body aches for the last couple of days. Pt last dialysis was on last Sunday. No fever or chills. No other modifying or associated factors. Labs in ER showed significant anemia with hemoglobin of 6.2 and hematocrit 18.8, patient was admitted for blood transfusion. renal consult is requested for management of ESRD/HD. Past History Past Medical History: ESRD, renal failure, other (ALCOHOLIC, LIVER CA, ON DIALYSIS) Past Surgical History: cholecystectomy, hysterectomy Social history: alcohol abuse Family history: hypertension Medications and Allergies Allergies Allergy/AdvReac Type Severity Reaction Status Date / Time Penicillins Allergy Rash Verified 03/16/22 19:11 Home Medications Medication Instructions Recorded Confirmed Last Taken Type Multivitamin Tab [Multiple Vitamin 1 each PO ONCE #30 tablet 04/27/16 03/22/22 Unknown Rx TAB (Theragran)] FLUoxetine [PROzac] 20 mg PO QDAY #30 capsule 03/14/22 03/22/22 Unknown Rx FLUoxetine [PROzac] 20 mg PO QDAY #30 capsule 03/14/22 03/22/22 Unknown Rx Folic Acid [Folvite] 1 mg PO QDAY #30 tablet 03/14/22 03/22/22 Unknown Rx Lactulose [Cephulac] 20 gm PO QDAY #30 oral.liqd 03/14/22 03/22/22 Unknown Rx Midodrine [Proamatine] 10 mg PO TID@0800,1200,1600 #90 03/14/22 03/22/22 Unknown Rx tablet Pantoprazole [Protonix TAB] 40 mg PO QDAC #30 tablet 03/14/22 03/22/22 Unknown Rx Rifaximin [Xifaxan] 550 mg PO BID #60 tablet 03/14/22 03/22/22 Unknown Rx Sodium Bicarbonate 1,300 mg PO TID #90 tablet 03/14/22 03/22/22 Unknown Rx Thiamine [Vitamin B-1] 100 mg PO QDAY #30 tablet 03/14/22 03/22/22 Unknown Rx Thiamine [Vitamin B-1] 100 mg PO QDAY #30 tablet 03/14/22 03/22/22 Unknown Rx chlordiazePOXIDE [Librium] 25 mg PO Q6H #10 capsule 03/14/22 03/22/22 Unknown Rx traZODone [Desyrel] 50 mg PO QHS #30 tab 03/14/22 03/22/22 Unknown Rx Active Meds: Active Medications Acetaminophen (Acetaminophen 325 Mg Tab) 650 mg PO Q4H PRN PRN Reason: Pain MILD(1-3)/Fever >100.5/JOSEPH Albumin Human (Albumin Human 25% (12.5 Gm/50 Ml) Inj) 12.5 gm IV PETRA PRN PRN Reason: Hypotension Albuterol (Albuterol 2.5 Mg/3 Ml Nebu) 2.5 mg IH Q3HRT PRN PRN Reason: Shortness Of Breath Albuterol/Ipratropium (Ipratropium/Albuterol Sulfate 3 Ml Ampul.Neb) 1 ampul IH Q6HRT [facility] Last Admin: 03/21/22 07:48 Dose: 1 ampul Chlordiazepoxide HCl (Chlordiazepoxide 25 Mg Cap) 25 mg PO Q6HR [facility] Last Admin: 03/21/22 04:56 Dose: 25 mg Famotidine (Famotidine 20 Mg Tab) 20 mg PO QAM [facility] Fluoxetine HCl (Fluoxetine 20 Mg Cap) 20 mg PO QDAY [facility] Folic Acid (Folic Acid 1 Mg Tab) 1 mg PO QDAY [facility] Sodium Chloride (Nacl 0.9%) 100 mls @ 999 mls/hr IV PETRA PRN PRN Reason: Hypotension Lactulose (Lactulose 20 Gm/30 Ml Oral Liqd) 20 gm PO QDAY [facility] Midodrine (Midodrine 10 Mg Tab) 10 mg PO TID@0800,1200,1600 [facility] Morphine Sulfate (Morphine 4 Mg/1 Ml Inj) 4 mg IV Q4H PRN PRN Reason: Pain , Severe (7-10) Morphine Sulfate (Morphine 2 Mg/1 Ml Inj) 2 mg IV Q4H PRN PRN Reason: Pain, Moderate (4-6) Ondansetron HCl (Ondansetron 4 Mg/2 Ml Inj) 4 mg IV Q8H PRN PRN Reason: Nausea And Vomiting Rifaximin (Rifaximin 550 Mg Tab) 550 mg PO BID [facility] Sodium Bicarbonate (Sodium Bicarbonate 650 Mg Tab) 1,300 mg PO TIDWM [facility] Sodium Chloride (Sodium Chloride 0.9% 10 Ml Flush Syringe) 10 ml IV BID [facility] Sodium Chloride (Sodium Chloride 0.9% 10 Ml Flush Syringe) 10 ml IV PRN PRN PRN Reason: LINE FLUSH Thiamine HCl (Thiamine 100 Mg Tab) 100 mg PO QDAY [facility] Trazodone HCl (Trazodone 50 Mg Tab) 50 mg PO QHS [facility] Review of Systems Constitutional: fatigue, weakness, lethargy Integumentary: other (edema ) Exam - Vital Signs Vital signs: Vital Signs Temp Pulse Resp BP Pulse Ox 98.3 F 95 H 16 114/60 98 03/20/22 23:04 03/20/22 23:04 03/20/22 23:04 03/20/22 23:04 03/20/22 23:04 - General Appearance General appearance: well-developed, appears stated age, chronically ill EENT: ATNC, PERRL, mucous membranes moist Neck: Present: neck supple Respiratory: Clear to Ascultation Heart: regular, S1S2 Gastrointestinal: Present: normoactive bowel sounds Integumentary: chronic venous stasis, other (2+ dawit b/l LE ) Neurologic: no focal deficit, alert and oriented x3, strength 5/5, CN 3-12 intact Results - Lab Results 03/22/22 04:17 03/22/22 04:17 Most recent lab results Calcium 8.0 mg/dL (8.4-10.2) L 03/21/22 00:09 Assessment and Plan - Patient Problems (1) End stage renal disease Current Visit: No Status: Acute Plan to address problem: arranged HD on TTS schedule with albumin support and on midodrine 10mg po tid to maintain MAP > 65mmHg (2) Anemia Current Visit: Yes Status: Acute Qualifiers: Anemia type: unspecified type Qualified Code(s): D64.9 - Anemia, unspecified Plan to address problem: pt scheduled for 1PRBC transfusion. cont EPO with HD (3) Chronic ulcer of leg Current Visit: Yes Status: Acute Qualifiers: Laterality: unspecified laterality Non-pressure ulcer stage: unspecified non-pressure ulcer stage Qualified Code(s): L97.909 - Non-pressure chronic ulcer of unspecified part of unspecified lower leg with unspecified severity (4) Hypotension Current Visit: Yes Status: Acute Plan to address problem: cont midodrine 10mg po tid. Albumin support prn for HD to maintain MAP > 65mmHg
[2022-03-21] MEDS: FOLIC ACID 1 MG TAB PO SCH (11:09)
[2022-03-21] MEDS: LACTULOSE 20 GM/30 ML ORAL LIQD PO SCH (11:09)
[2022-03-21] MEDS: FAMOTIDINE 20 MG TAB PO SCH (11:10)
[2022-03-21 11:31] LABS: Hemoglobin 6.2 gm/dl (10.1-14.3); Mean Corpuscular HGB Conc 33 % (30-34); Mean Corpuscular Volume 103 fl (79-97); Red Blood Count 1.83 M/mm3 (3.65-5.03)
[2022-03-21 11:47] LABS: Calcium 8.1 mg/dL (8.4-10.2); Hematocrit 18.8 % (30.3-42.9); Red Cell Distribution Width 27.9 % (13.2-15.2)
[2022-03-21 11:48] LABS: Platelet Count 56 K/mm3 (140-440)
[2022-03-21 13:00] LABS: Total Cells Counted 100
[2022-03-21 13:03] LABS: Anisocytosis 2+; Hypochromasia 1+; Macrocytosis 1+; Poikilocytosis Few; Stomatocytes Rare
[2022-03-21 13:04] LABS: Platelet Estimate Consistent w Auto
[2022-03-21] MEDS: FLUoxetine 20 MG CAP PO SCH (20:02)
[2022-03-21] MEDS: THIAMINE 100 MG TAB PO SCH (20:03)
[2022-03-21 21:26] LABS: Hematocrit 21.4 % (30.3-42.9); Hemoglobin 7.2 gm/dl (10.1-14.3)
[2022-03-21] MEDS: HEPARIN 5,000 UNIT/1 ML VIAL SUB-Q SCH (22:08)
[2022-03-21] MEDS: traZODone 50 MG TAB PO SCH (22:09)
[2022-03-22] MEDS: IPRATROPIUM/ALBUTEROL SULFATE 3 ML AMPUL.NEB IH SCH ×4 (01:45→20:27)
[2022-03-22] MEDS: chlordiazePOXIDE 25 MG CAP PO SCH ×3 (05:00→17:09)
[2022-03-22 05:22] LABS: Hemoglobin 6.5 gm/dl (10.1-14.3)
[2022-03-22] MEDS ORDERED: MIDODRINE 5 MG TAB PO ONE (05:25)
[2022-03-22 05:39] LABS: Calcium 7.9 mg/dL (8.4-10.2)
[2022-03-22 05:50] LABS: Hematocrit 19.9 % (30.3-42.9)
--- NOTE | 2022-03-22 06:08 | Progress Note ---
Assessment and Plan Assessment and plan: -Patient received 1 unit of PRBC yesterday This morning hemoglobin is 6. 5 Advised to transfuse 1 unit PRBC FARRUKH - Symptomatic anemia Hb 6.2-6.5 Transfused 1 unit of packed red blood cell during dialysis yesterday Hb improved to 6.5 transfuse additional PRBC today Procrit during dialysis , closely monitor --End stage renal disease Patient missed hemodialysis. Nephrology following HD per schedule, blood transfusion during dialysis --Generalized body aches Tylenol 650 mg p.o. every 6 hours as needed. Resume home medication. We will monitor the patient closely and adjust -- Chronic ulcer of leg Is stable. 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 Pepcid 20 mg p.o. twice daily for GI prophylaxis. Patient is a full code -- Full CODE STATUS --DC planning; Per case management and family Closely monitor the patient and adjust the management as needed Follow H&H night and tomorrow morning, follow nephrology recommendations Possible discharge tomorrow if stable and cleared by nephrology 03/21; patient's hemoglobin was 6.2 Transfuse 1 unit of PRBC and check H&H\ 03/22; patient's hemoglobin this morning was 6.5 after 1 unit of PRBC transfused 2 additional PRBC closely monitor History Interval history: I have seen and examined the patient at the bedside Patient's chart and medications reviewed Patient remains anemic This morning hemoglobin was 6.5 after receiving 1 unit of PRBC Advised to transfuse 2 additional PRBCs Check stool for occult blood to rule out GI causes of anemia No external evidence of bleeding Vital signs noted Hospitalist Physical - Constitutional Vitals: Temp Pulse Resp BP Pulse Ox 98.7 F 101 H 16 100/51 93 03/22/22 04:57 03/22/22 04:57 03/21/22 21:40 03/22/22 05:56 03/21/22 21:40 General appearance: Present: no acute distress, well-nourished, obese (Morbidly obese), other (Morbidly obese) - EENT Eyes: Present: PERRL, EOM intact - Neck Neck: Present: supple, normal ROM - Respiratory Respiratory effort: normal Respiratory: bilateral: diminished, negative: rales, rhonchi, wheezing - Cardiovascular Rhythm: regular Heart Sounds: Present: S1 & S2 - Extremities Extremities: no ischemia, No edema - Abdominal General gastrointestinal: soft, non-tender, non-distended, normal bowel sounds - Integumentary Integumentary: Present: clear, warm - Psychiatric Psychiatric: appropriate mood/affect, cooperative - Neurologic Neurologic: CNII-XII intact, moves all extremities Results - Labs CBC & Chem 7: 03/22/22 04:17 03/22/22 04:17 Labs: Laboratory Last Values WBC 4.1 K/mm3 (4.5-11.0) L 03/21/22 10:42 RBC 1.83 M/mm3 (3.65-5.03) L 03/21/22 10:42 Hgb 6.5 gm/dl (10.1-14.3) L 03/22/22 04:17 Hct 19.9 % (30.3-42.9) L* 03/22/22 04:17 MCV 103 fl (79-97) H 03/21/22 10:42 MCH 34 pg (28-32) H 03/21/22 10:42 MCHC 33 % (30-34) 03/21/22 10:42 RDW 27.9 % (13.2-15.2) H 03/21/22 10:42 Plt Count 56 K/mm3 (140-440) L 03/21/22 10:42 Baso % (Auto) Conference Planning Manager 03/21/22 00:09 Add Manual Diff Complete 03/21/22 10:42 Total Counted 100 03/21/22 10:42 Seg Neuts % (Manual) 59.0 % (40.0-70.0) 03/21/22 10:42 Band Neutrophils % 0 % 03/21/22 10:42 Lymphocytes % (Manual) 31.0 % (13.4-35.0) 03/21/22 10:42 Reactive Lymphs % (Man) 0 % 03/21/22 10:42 Monocytes % (Manual) 5.0 % (0.0-7.3) 03/21/22 10:42 Eosinophils % (Manual) 3.0 % (0.0-4.3) 03/21/22 10:42 Basophils % (Manual) 2.0 % (0.0-1.8) H 03/21/22 10:42 Metamyelocytes % 0 % 03/21/22 10:42 Myelocytes % 0 % 03/21/22 10:42 Promyelocytes % 0 % 03/21/22 10:42 Blast Cells % 0 % 03/21/22 10:42 Nucleated RBC % Not Reportable 03/21/22 10:42 Seg Neutrophils # Man 2.4 K/mm3 (1.8-7.7) 03/21/22 10:42 Band Neutrophils # 0.0 K/mm3 03/21/22 10:42 Lymphocytes # (Manual) 1.3 K/mm3 (1.2-5.4) 03/21/22 10:42 Abs React Lymphs (Man) 0.0 K/mm3 03/21/22 10:42 Monocytes # (Manual) 0.2 K/mm3 (0.0-0.8) 03/21/22 10:42 Eosinophils # (Manual) 0.1 K/mm3 (0.0-0.4) 03/21/22 10:42 Basophils # (Manual) 0.1 K/mm3 (0.0-0.1) 03/21/22 10:42 Metamyelocytes # 0.0 K/mm3 03/21/22 10:42 Myelocytes # 0.0 K/mm3 03/21/22 10:42 Promyelocytes # 0.0 K/mm3 03/21/22 10:42 Blast Cells # 0.0 K/mm3 03/21/22 10:42 WBC Morphology Not Reportable 03/21/22 10:42 Hypersegmented Neuts Not Reportable 03/21/22 10:42 Hyposegmented Neuts Not Reportable 03/21/22 10:42 Hypogranular Neuts Not Reportable 03/21/22 10:42 Smudge Cells Not Reportable 03/21/22 10:42 Toxic Granulation Not Reportable 03/21/22 10:42 Toxic Vacuolation Not Reportable 03/21/22 10:42 Dohle Bodies Not Reportable 03/21/22 10:42 Pelger-Huet Anomaly Not Reportable 03/21/22 10:42 Kevin Rods Not Reportable 03/21/22 10:42 Platelet Estimate Consistent w auto 03/21/22 10:42 Clumped Platelets Not Reportable 03/21/22 10:42 Plt Clumps, EDTA Not Reportable 03/21/22 10:42 Large Platelets Not Reportable 03/21/22 10:42 Giant Platelets Not Reportable 03/21/22 10:42 Platelet Satelliting Not Reportable 03/21/22 10:42 Plt Morphology Comment Not Reportable 03/21/22 10:42 RBC Morphology Not Reportable 03/21/22 10:42 Dimorphic RBCs Not Reportable 03/21/22 10:42 Polychromasia Not Reportable 03/21/22 10:42 Hypochromasia 1+ 03/21/22 10:42 Poikilocytosis Few 03/21/22 10:42 Anisocytosis 2+ 03/21/22 10:42 Microcytosis Not Reportable 03/21/22 10:42 Macrocytosis 1+ 03/21/22 10:42 Spherocytes Not Reportable 03/21/22 10:42 Pappenheimer Bodies Not Reportable 03/21/22 10:42 Sickle Cells Not Reportable 03/21/22 10:42 Target Cells Not Reportable 03/21/22 10:42 Tear Drop Cells Not Reportable 03/21/22 10:42 Ovalocytes Not Reportable 03/21/22 10:42 Stomatocytes Rare 03/21/22 10:42 Helmet Cells Not Reportable 03/21/22 10:42 [place] Bodies Not Reportable 03/21/22 10:42 [place] Rings Not Reportable 03/21/22 10:42 [place] Cells Not Reportable 03/21/22 10:42 Bite Cells Not Reportable 03/21/22 10:42 Crenated Cell Not Reportable 03/21/22 10:42 Elliptocytes Not Reportable 03/21/22 10:42 Acanthocytes (Spur) Rare 03/21/22 10:42 Rouleaux Not Reportable 03/21/22 10:42 Hemoglobin C Crystals Not Reportable 03/21/22 10:42 Schistocytes Not Reportable 03/21/22 10:42 Malaria parasites Not Reportable 03/21/22 10:42 Kiran Bodies Not Reportable 03/21/22 10:42 Hem Pathologist Commnt No 03/21/22 10:42 Sodium 136 mmol/L (137-145) L 03/22/22 04:17 Potassium 3.8 mmol/L (3.6-5.0) 03/22/22 04:17 Chloride 99.3 mmol/L (98-107) 03/22/22 04:17 Carbon Dioxide 27 mmol/L (22-30) 03/22/22 04:17 Anion Gap 14 mmol/L 03/22/22 04:17 BUN 24 mg/dL (7-17) H 03/22/22 04:17 Creatinine 3.2 mg/dL (0.6-1.2) H 03/22/22 04:17 Estimated GFR 15 ml/min 03/22/22 04:17 BUN/Creatinine Ratio 8 % 03/22/22 04:17 Glucose 117 mg/dL (65-100) H 03/22/22 04:17 Lactic Acid 1.40 mmol/L (0.7-2.0) 03/21/22 00:09 Calcium 7.9 mg/dL (8.4-10.2) L 03/22/22 04:17 Total Bilirubin 2.40 mg/dL (0.1-1.2) H 03/21/22 00:09 AST 63 units/L (5-40) H 03/21/22 00:09 ALT 28 units/L (7-56) 03/21/22 00:09 Alkaline Phosphatase 145 units/L (35-129) H 03/21/22 00:09 Total Protein 6.2 g/dL (6.3-8.2) L 03/21/22 00:09 Albumin 2.1 g/dL (3.9-5) L 03/21/22 00:09 Albumin/Globulin Ratio 0.5 % 03/21/22 00:09 Blood Type O POSITIVE 03/21/22 05:35 Antibody Screen Negative 03/21/22 05:35 Crossmatch See Detail 03/21/22 05:35 Active Medications - Current Medications Current Medications: Generic Name Dose Route Start Last Admin Trade Name Freq PRN Reason Stop Dose Admin Acetaminophen 650 mg 03/21/22 02:28 Acetaminophen 325 Mg Tab PO Q4H PRN Pain MILD(1-3)/Fever >100.5/JOSEPH Albumin Human 12.5 gm 03/21/22 10:58 Albumin Human 25% (12.5 Gm/50 Ml) Inj IV PETRA PRN Hypotension Albuterol 2.5 mg 03/21/22 02:28 Albuterol 2.5 Mg/3 Ml Nebu IH Q3HRT PRN Shortness Of Breath Albuterol/Ipratropium 1 ampul 03/21/22 08:00 03/22/22 01:45 Ipratropium/Albuterol Sulfate 3 Ml Ampul.Neb IH Not Given Q6HRT FABIEN Chlordiazepoxide HCl 25 mg 03/21/22 04:30 03/22/22 05:00 Chlordiazepoxide 25 Mg Cap PO 25 mg Q6HR FABIEN Administration Famotidine 20 mg 03/21/22 10:00 03/21/22 11:10 Famotidine 20 Mg Tab PO Not Given QAM FABIEN Fluoxetine HCl 20 mg 03/21/22 10:00 03/21/22 20:02 Fluoxetine 20 Mg Cap PO 20 mg QDAY FABIEN Administration Folic Acid 1 mg 03/21/22 10:00 03/21/22 11:09 Folic Acid 1 Mg Tab PO Not Given QDAY FABIEN Heparin Sodium (Porcine) 5,000 unit 03/21/22 22:00 03/21/22 22:08 Heparin 5,000 Unit/1 Ml Vial SUB-Q 5,000 unit Q12HR FABIEN Administration Sodium Chloride 100 mls @ 999 mls/hr 03/21/22 10:57 Nacl 0.9% IV PETRA PRN Hypotension Sodium Chloride 500 mls @ 0 mls/hr 03/22/22 06:02 Nacl 0.9% 500 Ml IV 03/22/22 06:03 ONCE ONE As Directed Lactulose 20 gm 03/21/22 10:00 03/21/22 11:09 Lactulose 20 Gm/30 Ml Oral Liqd PO Not Given QDAY FABIEN Midodrine 10 mg 03/21/22 08:00 03/21/22 20:03 Midodrine 10 Mg Tab PO 10 mg TID@0800,1200,1600 FABIEN Administration Morphine Sulfate 4 mg 03/21/22 02:28 Morphine 4 Mg/1 Ml Inj IV Q4H PRN Pain , Severe (7-10) Morphine Sulfate 2 mg 03/21/22 02:28 Morphine 2 Mg/1 Ml Inj IV Q4H PRN Pain, Moderate (4-6) Ondansetron HCl 4 mg 03/21/22 02:28 Ondansetron 4 Mg/2 Ml Inj IV Q8H PRN Nausea And Vomiting Rifaximin 550 mg 03/21/22 10:00 03/21/22 22:08 Rifaximin 550 Mg Tab PO 550 mg BID FABIEN Administration Sodium Bicarbonate 1,300 mg 03/21/22 08:00 03/21/22 20:03 Sodium Bicarbonate 650 Mg Tab PO 1,300 mg TIDWM FABIEN Administration Sodium Chloride 10 ml 03/21/22 10:00 03/21/22 22:08 Sodium Chloride 0.9% 10 Ml Flush Syringe IV 10 ml BID FABIEN Administration Sodium Chloride 10 ml 03/21/22 02:28 Sodium Chloride 0.9% 10 Ml Flush Syringe IV PRN PRN LINE FLUSH Thiamine HCl 100 mg 03/21/22 10:00 03/21/22 20:03 Thiamine 100 Mg Tab PO 100 mg QDAY FABIEN Administration Trazodone HCl 50 mg 03/21/22 22:00 03/21/22 22:09 Trazodone 50 Mg Tab PO 50 mg QHS FABIEN Administration
[2022-03-22] MEDS ORDERED: SODIUM CHLORIDE 0.9% 500 ML 500 ML IV ONE ×2 (06:22→08:00)
[2022-03-22] MEDS: FOLIC ACID 1 MG TAB PO SCH (09:57)
[2022-03-22] MEDS: MIDODRINE 10 MG TAB PO SCH ×3 (09:57→17:07)
[2022-03-22] MEDS: LACTULOSE 20 GM/30 ML ORAL LIQD PO SCH (09:57)
[2022-03-22] MEDS: THIAMINE 100 MG TAB PO SCH (09:57)
[2022-03-22] MEDS: FAMOTIDINE 20 MG TAB PO SCH (09:57)
[2022-03-22] MEDS: SODIUM BICARBONATE 650 MG TAB PO SCH ×3 (09:57→17:07)
[2022-03-22] MEDS: FLUoxetine 20 MG CAP PO SCH (09:57)
[2022-03-22] MEDS: RIFAXIMIN 550 MG TAB PO SCH ×2 (09:57→21:24)
[2022-03-22] MEDS: HEPARIN 5,000 UNIT/1 ML VIAL SUB-Q SCH ×2 (09:58→21:24)
[2022-03-22] MEDS ORDERED: SODIUM CHLORIDE 0.9% 500 ML 500 ML ONE (13:30)
[2022-03-22] MEDS ORDERED: SODIUM CHLORIDE 0.9% 500 ML 500 ML IV NR (14:00)
--- NOTE | 2022-03-22 17:11 | Progress Note ---
Assessment and Plan - Patient Problems (1) End stage renal disease Current Visit: No Status: Acute Plan to address problem: arranged HD on TTS schedule while inpatient. with albumin support prn and on midodrine 10mg po tid to maintain MAP > 65mmHg. Patient does not have outpatient HD currently due to uninsured status. (2) Anemia Current Visit: Yes Status: Acute Qualifiers: Anemia type: unspecified type Qualified Code(s): D64.9 - Anemia, unspecified Plan to address problem: s/p 1PRBC transfusion. cont EPO with HD (3) Chronic ulcer of leg Current Visit: Yes Status: Acute Qualifiers: Laterality: unspecified laterality Non-pressure ulcer stage: unspecified non-pressure ulcer stage Qualified Code(s): L97.909 - Non-pressure chronic ulcer of unspecified part of unspecified lower leg with unspecified severity (4) Hypotension Current Visit: Yes Status: Acute Plan to address problem: cont midodrine 10mg po tid. Albumin support prn for HD to maintain MAP > 65mmHg Subjective Date of service: 03/22/22 Principal diagnosis: ESRD Interval history: Patient is weak, lethargic, tolerated HD yesterday with Albumin support. Objective - Vital Signs Vital signs: Vital Signs - 12hr 03/22/22 03/22/22 03/22/22 05:56 08:00 08:35 Temperature Pulse Rate Pulse Rate [ 102 H Anterior Bilateral Throughout] Respiratory Rate Respiratory 18 Rate [Anterior Bilateral Throughout] Blood Pressure Blood Pressure 100/51 [Left] O2 Sat by Pulse 98 Oximetry 03/22/22 03/22/22 03/22/22 08:37 10:49 13:32 Temperature 97.7 F 98.4 F Pulse Rate 101 H 105 H Pulse Rate [ Anterior Bilateral Throughout] Respiratory 20 18 Rate Respiratory Rate [Anterior Bilateral Throughout] Blood Pressure 85/45 98/48 Blood Pressure [Left] O2 Sat by Pulse 98 98 92 Oximetry 03/22/22 03/22/22 03/22/22 14:00 14:15 14:45 Temperature 98.4 F 98.4 F 98.0 F Pulse Rate 102 H 101 H 105 H Pulse Rate [ 103 H Anterior Bilateral Throughout] Respiratory 20 20 18 Rate Respiratory 17 Rate [Anterior Bilateral Throughout] Blood Pressure 101/52 99/55 104/55 Blood Pressure [Left] O2 Sat by Pulse 94 95 98 Oximetry 03/22/22 03/22/22 03/22/22 15:15 15:45 16:15 Temperature 98.5 F Pulse Rate 108 H 102 H 108 H Pulse Rate [ Anterior Bilateral Throughout] Respiratory 20 20 18 Rate Respiratory Rate [Anterior Bilateral Throughout] Blood Pressure 110/58 106/59 99/59 Blood Pressure [Left] O2 Sat by Pulse 98 94 100 Oximetry - General Appearance General appearance: well-developed, appears stated age EENT: ATNC, PERRL, mucous membranes moist Neck: no JVD Respiratory: Present: Clear to Ascultation Cardiology: regular, S1S2 Gastrointestinal: normoactive bowel sounds Integumentary: ulcer, other (2+ b/l LE edema ) Neurologic: no focal deficit, CN 3-12 intact Psychiatric: mood/affect appropriate - Lab 03/22/22 04:17 03/22/22 04:17 Most recent lab results Calcium 7.9 mg/dL (8.4-10.2) L 03/22/22 04:17 Medications & Allergies - Medications Allergies/Adverse Reactions: Allergies Penicillins Allergy (Verified 03/16/22 19:11) Rash Home Medications: Home Medications Medication Instructions Recorded Confirmed Last Taken Type Multivitamin Tab [Multiple Vitamin 1 each PO ONCE #30 tablet 04/27/16 03/22/22 Unknown Rx TAB (Theragran)] FLUoxetine [PROzac] 20 mg PO QDAY #30 capsule 03/14/22 03/22/22 Unknown Rx FLUoxetine [PROzac] 20 mg PO QDAY #30 capsule 03/14/22 03/22/22 Unknown Rx Folic Acid [Folvite] 1 mg PO QDAY #30 tablet 03/14/22 03/22/22 Unknown Rx Lactulose [Cephulac] 20 gm PO QDAY #30 oral.liqd 03/14/22 03/22/22 Unknown Rx Midodrine [Proamatine] 10 mg PO TID@0800,1200,1600 #90 03/14/22 03/22/22 Unknown Rx tablet Pantoprazole [Protonix TAB] 40 mg PO QDAC #30 tablet 03/14/22 03/22/22 Unknown Rx Rifaximin [Xifaxan] 550 mg PO BID #60 tablet 03/14/22 03/22/22 Unknown Rx Sodium Bicarbonate 1,300 mg PO TID #90 tablet 03/14/22 03/22/22 Unknown Rx Thiamine [Vitamin B-1] 100 mg PO QDAY #30 tablet 03/14/22 03/22/22 Unknown Rx Thiamine [Vitamin B-1] 100 mg PO QDAY #30 tablet 03/14/22 03/22/22 Unknown Rx chlordiazePOXIDE [Librium] 25 mg PO Q6H #10 capsule 03/14/22 03/22/22 Unknown Rx traZODone [Desyrel] 50 mg PO QHS #30 tab 03/14/22 03/22/22 Unknown Rx Active Medications: Generic Name Dose Route Start Last Admin Trade Name Freq PRN Reason Stop Dose Admin Acetaminophen 650 mg 03/21/22 02:28 Acetaminophen 325 Mg Tab PO Q4H PRN Pain MILD(1-3)/Fever >100.5/JOSEPH Albumin Human 12.5 gm 03/21/22 10:58 Albumin Human 25% (12.5 Gm/50 Ml) Inj IV PETRA PRN Hypotension Albuterol 2.5 mg 03/21/22 02:28 Albuterol 2.5 Mg/3 Ml Nebu IH Q3HRT PRN Shortness Of Breath Albuterol/Ipratropium 1 ampul 03/21/22 08:00 03/22/22 14:35 Ipratropium/Albuterol Sulfate 3 Ml Ampul.Neb IH 1 ampul Q6HRT FABIEN Administration Chlordiazepoxide HCl 25 mg 03/21/22 04:30 03/22/22 12:00 Chlordiazepoxide 25 Mg Cap PO 25 mg Q6HR FABIEN Administration Famotidine 20 mg 03/21/22 10:00 03/22/22 09:57 Famotidine 20 Mg Tab PO 20 mg QAM FABIEN Administration Fluoxetine HCl 20 mg 03/21/22 10:00 03/22/22 09:57 Fluoxetine 20 Mg Cap PO 20 mg QDAY FABIEN Administration Folic Acid 1 mg 03/21/22 10:00 03/22/22 09:57 Folic Acid 1 Mg Tab PO 1 mg QDAY FABIEN Administration Heparin Sodium (Porcine) 5,000 unit 03/21/22 22:00 03/22/22 09:58 Heparin 5,000 Unit/1 Ml Vial SUB-Q 5,000 unit Q12HR FABIEN Administration Sodium Chloride 100 mls @ 999 mls/hr 03/21/22 10:57 Nacl 0.9% IV PETRA PRN Hypotension Sodium Chloride 500 mls @ 0 mls/hr 03/22/22 14:00 Nacl 0.9% 500 Ml IV 03/22/22 20:00 ONCE NR As Directed Lactulose 20 gm 03/21/22 10:00 03/22/22 09:57 Lactulose 20 Gm/30 Ml Oral Liqd PO 20 gm QDAY FABIEN Administration Midodrine 10 mg 03/21/22 08:00 03/22/22 17:07 Midodrine 10 Mg Tab PO 10 mg TID@0800,1200,1600 FABIEN Administration Morphine Sulfate 4 mg 03/21/22 02:28 Morphine 4 Mg/1 Ml Inj IV Q4H PRN Pain , Severe (7-10) Morphine Sulfate 2 mg 03/21/22 02:28 Morphine 2 Mg/1 Ml Inj IV Q4H PRN Pain, Moderate (4-6) Ondansetron HCl 4 mg 03/21/22 02:28 Ondansetron 4 Mg/2 Ml Inj IV Q8H PRN Nausea And Vomiting Rifaximin 550 mg 03/21/22 10:00 03/22/22 09:57 Rifaximin 550 Mg Tab PO 550 mg BID FABIEN Administration Sodium Bicarbonate 1,300 mg 03/21/22 08:00 03/22/22 17:07 Sodium Bicarbonate 650 Mg Tab PO 1,300 mg TIDWM FABIEN Administration Sodium Chloride 10 ml 03/21/22 10:00 03/22/22 09:58 Sodium Chloride 0.9% 10 Ml Flush Syringe IV 10 ml BID FABIEN Administration Sodium Chloride 10 ml 03/21/22 02:28 Sodium Chloride 0.9% 10 Ml Flush Syringe IV PRN PRN LINE FLUSH Thiamine HCl 100 mg 03/21/22 10:00 03/22/22 09:57 Thiamine 100 Mg Tab PO 100 mg QDAY FABIEN Administration Trazodone HCl 50 mg 03/21/22 22:00 03/21/22 22:09 Trazodone 50 Mg Tab PO 50 mg QHS FABIEN Administration
[2022-03-22] MEDS: MORPHINE 2 MG/1 ML INJ IV PRN (20:32)
[2022-03-22] MEDS: traZODone 50 MG TAB PO SCH (21:24)
[2022-03-23 00:11] LABS: Hemoglobin 8.6 gm/dl (10.1-14.3)
[2022-03-23] MEDS: chlordiazePOXIDE 25 MG CAP PO SCH ×5 (00:14→22:48)
[2022-03-23] MEDS: IPRATROPIUM/ALBUTEROL SULFATE 3 ML AMPUL.NEB IH SCH (01:34)
[2022-03-23] MEDS: MORPHINE 2 MG/1 ML INJ IV PRN ×2 (05:23→20:07)
[2022-03-23 06:41] LABS: Hematocrit 24.6 % (30.3-42.9); Hemoglobin 8.4 gm/dl (10.1-14.3)
[2022-03-23 07:16] LABS: Calcium 8.2 mg/dL (8.4-10.2)
[2022-03-23] MEDS: RIFAXIMIN 550 MG TAB PO SCH ×2 (09:50→22:48)
[2022-03-23] MEDS: SODIUM BICARBONATE 650 MG TAB PO SCH ×3 (09:50→17:21)
[2022-03-23] MEDS: MIDODRINE 10 MG TAB PO SCH ×3 (09:50→17:21)
[2022-03-23] MEDS: THIAMINE 100 MG TAB PO SCH (09:50)
[2022-03-23] MEDS: FAMOTIDINE 20 MG TAB PO SCH (09:50)
[2022-03-23] MEDS: FLUoxetine 20 MG CAP PO SCH (09:50)
[2022-03-23] MEDS: LACTULOSE 20 GM/30 ML ORAL LIQD PO SCH (09:50)
[2022-03-23] MEDS: FOLIC ACID 1 MG TAB PO SCH (09:50)
[2022-03-23] MEDS: HEPARIN 5,000 UNIT/1 ML VIAL SUB-Q SCH ×2 (09:51→22:48)
--- NOTE | 2022-03-23 11:41 | XRay Report ---
CHEST 1 VIEW 03/23/2022 9:53 AM INDICATION / CLINICAL INFORMATION: For dialysis center clearance. COMPARISON: 03/17/2022. FINDINGS: SUPPORT DEVICES: Dialysis catheter unchanged. HEART / MEDIASTINUM: No significant abnormality. LUNGS / PLEURA: Elevation right hemidiaphragm remains. Mild increasing vascular congestion and basila r atelectasis. No significant infiltrate. No pneumothorax. ADDITIONAL FINDINGS: No significant additional findings. IMPRESSION: Mild increasing vascular congestion and basilar atelectasis. Signer Name: Barrera Crawford MD Signed: 03/23/2022 11:37 AM Workstation Name: [email or web address]
[2022-03-23] MEDS: EPOETIN ALFA-EPBX 10,000 UNIT/1 ML VIAL SUB-Q PRN (12:15)
--- NOTE | 2022-03-23 13:02 | Progress Note ---
Assessment and Plan - Patient Problems (1) End stage renal disease Current Visit: No Status: Acute Plan to address problem: Cont HD on TTS schedule while inpatient. with albumin support prn and on midodrine 10mg po tid to maintain MAP > 65mmHg. Patient does not have outpatient HD currently due to uninsured status. (2) Anemia Current Visit: Yes Status: Acute Qualifiers: Anemia type: unspecified type Qualified Code(s): D64.9 - Anemia, unspecified Plan to address problem: s/p 1PRBC transfusion. cont EPO with HD (3) Chronic ulcer of leg Current Visit: Yes Status: Acute Qualifiers: Laterality: unspecified laterality Non-pressure ulcer stage: unspecified non-pressure ulcer stage Qualified Code(s): L97.909 - Non-pressure chronic ulcer of unspecified part of unspecified lower leg with unspecified severity (4) Hypotension Current Visit: Yes Status: Acute Plan to address problem: cont midodrine 10mg po tid. Albumin support prn for HD to maintain MAP > 65mmHg Subjective Date of service: 03/23/22 Principal diagnosis: ESRD Interval history: Patient is weak, lethargic, cont HD on TTS schedule with albumin support as needed Objective - Vital Signs Vital signs: Vital Signs - 12hr 03/23/22 03/23/22 03/23/22 05:20 09:56 10:25 Temperature 98.2 F 98.3 F Pulse Rate 102 H Respiratory 18 20 Rate Blood Pressure 117/63 108/58 O2 Sat by Pulse 98 Oximetry O2 Sat by Pulse 99 Oximetry [ Anterior Bilateral Throughout] 03/23/22 03/23/22 03/23/22 10:30 10:45 11:00 Temperature Pulse Rate 102 H 104 H 106 H Respiratory Rate Blood Pressure 107/39 97/48 101/52 O2 Sat by Pulse Oximetry O2 Sat by Pulse Oximetry [ Anterior Bilateral Throughout] 03/23/22 11:15 Temperature Pulse Rate 109 H Respiratory Rate Blood Pressure 99/52 O2 Sat by Pulse Oximetry O2 Sat by Pulse Oximetry [ Anterior Bilateral Throughout] - General Appearance General appearance: well-developed, appears stated age, fatigue EENT: ATNC, PERRL, mucous membranes moist Neck: no JVD Respiratory: Present: Clear to Ascultation Cardiology: regular, S1S2 Gastrointestinal: obese Integumentary: ulcer, chronic venous stasis Neurologic: no focal deficit, alert and oriented x3, strength 5/5, CN 3-12 intact Psychiatric: mood/affect appropriate, cooperative - Lab 03/23/22 05:50 03/23/22 05:50 Most recent lab results Calcium 8.2 mg/dL (8.4-10.2) L 03/23/22 05:50 Medications & Allergies - Medications Allergies/Adverse Reactions: Allergies Penicillins Allergy (Verified 03/16/22 19:11) Rash Home Medications: Home Medications Medication Instructions Recorded Confirmed Last Taken Type Multivitamin Tab [Multiple Vitamin 1 each PO ONCE #30 tablet 04/27/16 03/22/22 Unknown Rx TAB (Theragran)] FLUoxetine [PROzac] 20 mg PO QDAY #30 capsule 03/14/22 03/22/22 Unknown Rx FLUoxetine [PROzac] 20 mg PO QDAY #30 capsule 03/14/22 03/22/22 Unknown Rx Folic Acid [Folvite] 1 mg PO QDAY #30 tablet 03/14/22 03/22/22 Unknown Rx Lactulose [Cephulac] 20 gm PO QDAY #30 oral.liqd 03/14/22 03/22/22 Unknown Rx Midodrine [Proamatine] 10 mg PO TID@0800,1200,1600 #90 03/14/22 03/22/22 Unknown Rx tablet Pantoprazole [Protonix TAB] 40 mg PO QDAC #30 tablet 03/14/22 03/22/22 Unknown Rx Rifaximin [Xifaxan] 550 mg PO BID #60 tablet 03/14/22 03/22/22 Unknown Rx Sodium Bicarbonate 1,300 mg PO TID #90 tablet 03/14/22 03/22/22 Unknown Rx Thiamine [Vitamin B-1] 100 mg PO QDAY #30 tablet 03/14/22 03/22/22 Unknown Rx Thiamine [Vitamin B-1] 100 mg PO QDAY #30 tablet 03/14/22 03/22/22 Unknown Rx chlordiazePOXIDE [Librium] 25 mg PO Q6H #10 capsule 03/14/22 03/22/22 Unknown Rx traZODone [Desyrel] 50 mg PO QHS #30 tab 03/14/22 03/22/22 Unknown Rx Active Medications: Generic Name Dose Route Start Last Admin Trade Name Freq PRN Reason Stop Dose Admin Acetaminophen 650 mg 03/21/22 02:28 Acetaminophen 325 Mg Tab PO Q4H PRN Pain MILD(1-3)/Fever >100.5/JOSEPH Albumin Human 12.5 gm 03/21/22 10:58 Albumin Human 25% (12.5 Gm/50 Ml) Inj IV PETRA PRN Hypotension Albuterol 2.5 mg 03/21/22 02:28 Albuterol 2.5 Mg/3 Ml Nebu IH Q3HRT PRN Shortness Of Breath Chlordiazepoxide HCl 25 mg 03/21/22 04:30 03/23/22 05:15 Chlordiazepoxide 25 Mg Cap PO 25 mg Q6HR FABIEN Administration Epoetin Arnulfo-epbx 10,000 unit 03/23/22 13:00 03/23/22 12:15 Epoetin Arnulfo-Epbx 10,000 Unit/1 Ml Vial SUB-Q 10,000 unit PETRA PRN Administration dialysis Famotidine 20 mg 03/21/22 10:00 03/23/22 09:50 Famotidine 20 Mg Tab PO 20 mg QAM FABIEN Administration Fluoxetine HCl 20 mg 03/21/22 10:00 03/23/22 09:50 Fluoxetine 20 Mg Cap PO 20 mg QDAY FABIEN Administration Folic Acid 1 mg 03/21/22 10:00 03/23/22 09:50 Folic Acid 1 Mg Tab PO 1 mg QDAY FABIEN Administration Heparin Sodium (Porcine) 5,000 unit 03/21/22 22:00 03/23/22 09:51 Heparin 5,000 Unit/1 Ml Vial SUB-Q 5,000 unit Q12HR FABIEN Administration Sodium Chloride 100 mls @ 999 mls/hr 03/21/22 10:57 Nacl 0.9% IV PETRA PRN Hypotension Lactulose 20 gm 03/21/22 10:00 03/23/22 09:50 Lactulose 20 Gm/30 Ml Oral Liqd PO 20 gm QDAY FABIEN Administration Midodrine 10 mg 03/21/22 08:00 03/23/22 09:50 Midodrine 10 Mg Tab PO 10 mg TID@0800,1200,1600 FABIEN Administration Morphine Sulfate 4 mg 03/21/22 02:28 Morphine 4 Mg/1 Ml Inj IV Q4H PRN Pain , Severe (7-10) Morphine Sulfate 2 mg 03/21/22 02:28 03/23/22 05:23 Morphine 2 Mg/1 Ml Inj IV 2 mg Q4H PRN Administration Pain, Moderate (4-6) Ondansetron HCl 4 mg 03/21/22 02:28 Ondansetron 4 Mg/2 Ml Inj IV Q8H PRN Nausea And Vomiting Rifaximin 550 mg 03/21/22 10:00 03/23/22 09:50 Rifaximin 550 Mg Tab PO 550 mg BID FABIEN Administration Sodium Bicarbonate 1,300 mg 03/21/22 08:00 03/23/22 09:50 Sodium Bicarbonate 650 Mg Tab PO 1,300 mg TIDWM FABIEN Administration Sodium Chloride 10 ml 03/21/22 10:00 03/23/22 09:50 Sodium Chloride 0.9% 10 Ml Flush Syringe IV 10 ml BID FABIEN Administration Sodium Chloride 10 ml 03/21/22 02:28 Sodium Chloride 0.9% 10 Ml Flush Syringe IV PRN PRN LINE FLUSH Thiamine HCl 100 mg 03/21/22 10:00 03/23/22 09:50 Thiamine 100 Mg Tab PO 100 mg QDAY FABIEN Administration Trazodone HCl 50 mg 03/21/22 22:00 03/22/22 21:24 Trazodone 50 Mg Tab PO 50 mg QHS FABIEN Administration
[2022-03-23 13:14] LABS: Hepatitis B Surface Antigen Non-Reactive (Negative); Hepatitis C Virus Antibody Non-Reactive (NonReactive)
--- NOTE | 2022-03-23 18:56 | Progress Note ---
Assessment and Plan Assessment and plan: -Patient received total 3 units PRBC Hb 8.4 - Symptomatic anemia Hb 6.2-6.5-8.4 Patient received total 3 units hemoglobin improved to 8.4 Closely monitor H&H and transfuse additional PRBC --End stage renal disease on HD Patient missed hemodialysis. Nephrology following HD per schedule, blood transfusion during dialysis --Generalized body aches Tylenol 650 mg p.o. every 6 hours as needed. Resume home medication. We will monitor the patient closely and adjust -- Chronic ulcer of leg Is stable. 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 Pepcid 20 mg p.o. twice daily for GI prophylaxis. Patient is a full code -- Full CODE STATUS --DC planning; Per case management and family Closely monitor the patient and adjust the management as needed Follow H&H night and tomorrow morning, follow nephrology recommendations Possible discharge tomorrow if stable and cleared by nephrology 03/21; patient's hemoglobin was 6.2 Transfuse 1 unit of PRBC and check H&H\ 03/22; patient's hemoglobin this morning was 6.5 after 1 unit of PRBC transfused 2 additional PRBC closely monitor 03/23; received total 3 units PRBC Hb today 8.5 Possible discharge tomorrow if stable DC planning per case management History Interval history: I have seen and examined the patient at the bedside Patient's chart and medications reviewed Patient scheduled for hemodialysis today No new complaints Vital signs noted Hospitalist Physical - Constitutional Vitals: Temp Pulse Resp BP Pulse Ox 97.2 F L 85 18 106/41 99 03/23/22 14:00 03/23/22 14:00 03/23/22 14:00 03/23/22 14:00 03/23/22 14:00 General appearance: Present: no acute distress, well-nourished, obese (Morbidly obese), other (Morbidly obese) - EENT Eyes: Present: PERRL, EOM intact - Neck Neck: Present: supple, normal ROM - Respiratory Respiratory effort: normal Respiratory: bilateral: diminished, negative: rales, rhonchi, wheezing - Cardiovascular Rhythm: regular Heart Sounds: Present: S1 & S2 - Extremities Extremities: no ischemia, No edema - Abdominal General gastrointestinal: soft, non-tender, non-distended, normal bowel sounds - Integumentary Integumentary: Present: clear, warm - Psychiatric Psychiatric: appropriate mood/affect, cooperative - Neurologic Neurologic: CNII-XII intact, moves all extremities Results - Labs CBC & Chem 7: 03/23/22 05:50 03/23/22 05:50 Labs: Laboratory Last Values WBC 4.1 K/mm3 (4.5-11.0) L 03/21/22 10:42 RBC 1.83 M/mm3 (3.65-5.03) L 03/21/22 10:42 Hgb 8.4 gm/dl (10.1-14.3) L 03/23/22 05:50 Hct 24.6 % (30.3-42.9) L 03/23/22 05:50 MCV 103 fl (79-97) H 03/21/22 10:42 MCH 34 pg (28-32) H 03/21/22 10:42 MCHC 33 % (30-34) 03/21/22 10:42 RDW 27.9 % (13.2-15.2) H 03/21/22 10:42 Plt Count 56 K/mm3 (140-440) L 03/21/22 10:42 Baso % (Auto) Telemetry Rn 03/21/22 00:09 Add Manual Diff Complete 03/21/22 10:42 Total Counted 100 03/21/22 10:42 Seg Neuts % (Manual) 59.0 % (40.0-70.0) 03/21/22 10:42 Band Neutrophils % 0 % 03/21/22 10:42 Lymphocytes % (Manual) 31.0 % (13.4-35.0) 03/21/22 10:42 Reactive Lymphs % (Man) 0 % 03/21/22 10:42 Monocytes % (Manual) 5.0 % (0.0-7.3) 03/21/22 10:42 Eosinophils % (Manual) 3.0 % (0.0-4.3) 03/21/22 10:42 Basophils % (Manual) 2.0 % (0.0-1.8) H 03/21/22 10:42 Metamyelocytes % 0 % 03/21/22 10:42 Myelocytes % 0 % 03/21/22 10:42 Promyelocytes % 0 % 03/21/22 10:42 Blast Cells % 0 % 03/21/22 10:42 Nucleated RBC % Not Reportable 03/21/22 10:42 Seg Neutrophils # Man 2.4 K/mm3 (1.8-7.7) 03/21/22 10:42 Band Neutrophils # 0.0 K/mm3 03/21/22 10:42 Lymphocytes # (Manual) 1.3 K/mm3 (1.2-5.4) 03/21/22 10:42 Abs React Lymphs (Man) 0.0 K/mm3 03/21/22 10:42 Monocytes # (Manual) 0.2 K/mm3 (0.0-0.8) 03/21/22 10:42 Eosinophils # (Manual) 0.1 K/mm3 (0.0-0.4) 03/21/22 10:42 Basophils # (Manual) 0.1 K/mm3 (0.0-0.1) 03/21/22 10:42 Metamyelocytes # 0.0 K/mm3 03/21/22 10:42 Myelocytes # 0.0 K/mm3 03/21/22 10:42 Promyelocytes # 0.0 K/mm3 03/21/22 10:42 Blast Cells # 0.0 K/mm3 03/21/22 10:42 WBC Morphology Not Reportable 03/21/22 10:42 Hypersegmented Neuts Not Reportable 03/21/22 10:42 Hyposegmented Neuts Not Reportable 03/21/22 10:42 Hypogranular Neuts Not Reportable 03/21/22 10:42 Smudge Cells Not Reportable 03/21/22 10:42 Toxic Granulation Not Reportable 03/21/22 10:42 Toxic Vacuolation Not Reportable 03/21/22 10:42 Dohle Bodies Not Reportable 03/21/22 10:42 Pelger-Huet Anomaly Not Reportable 03/21/22 10:42 Kevin Rods Not Reportable 03/21/22 10:42 Platelet Estimate Consistent w auto 03/21/22 10:42 Clumped Platelets Not Reportable 03/21/22 10:42 Plt Clumps, EDTA Not Reportable 03/21/22 10:42 Large Platelets Not Reportable 03/21/22 10:42 Giant Platelets Not Reportable 03/21/22 10:42 Platelet Satelliting Not Reportable 03/21/22 10:42 Plt Morphology Comment Not Reportable 03/21/22 10:42 RBC Morphology Not Reportable 03/21/22 10:42 Dimorphic RBCs Not Reportable 03/21/22 10:42 Polychromasia Not Reportable 03/21/22 10:42 Hypochromasia 1+ 03/21/22 10:42 Poikilocytosis Few 03/21/22 10:42 Anisocytosis 2+ 03/21/22 10:42 Microcytosis Not Reportable 03/21/22 10:42 Macrocytosis 1+ 03/21/22 10:42 Spherocytes Not Reportable 03/21/22 10:42 Pappenheimer Bodies Not Reportable 03/21/22 10:42 Sickle Cells Not Reportable 03/21/22 10:42 Target Cells Not Reportable 03/21/22 10:42 Tear Drop Cells Not Reportable 03/21/22 10:42 Ovalocytes Not Reportable 03/21/22 10:42 Stomatocytes Rare 03/21/22 10:42 Helmet Cells Not Reportable 03/21/22 10:42 [place] Bodies Not Reportable 03/21/22 10:42 [place] Rings Not Reportable 03/21/22 10:42 [place] Cells Not Reportable 03/21/22 10:42 Bite Cells Not Reportable 03/21/22 10:42 Crenated Cell Not Reportable 03/21/22 10:42 Elliptocytes Not Reportable 03/21/22 10:42 Acanthocytes (Spur) Rare 03/21/22 10:42 Rouleaux Not Reportable 03/21/22 10:42 Hemoglobin C Crystals Not Reportable 03/21/22 10:42 Schistocytes Not Reportable 03/21/22 10:42 Malaria parasites Not Reportable 03/21/22 10:42 Kiran Bodies Not Reportable 03/21/22 10:42 Hem Pathologist Commnt No 03/21/22 10:42 Sodium 135 mmol/L (137-145) L 03/23/22 05:50 Potassium 4.0 mmol/L (3.6-5.0) 03/23/22 05:50 Chloride 99.5 mmol/L (98-107) 03/23/22 05:50 Carbon Dioxide 27 mmol/L (22-30) 03/23/22 05:50 Anion Gap 13 mmol/L 03/23/22 05:50 BUN 29 mg/dL (7-17) H 03/23/22 05:50 Creatinine 3.8 mg/dL (0.6-1.2) H 03/23/22 05:50 Estimated GFR 13 ml/min 03/23/22 05:50 BUN/Creatinine Ratio 8 % 03/23/22 05:50 Glucose 86 mg/dL (65-100) 03/23/22 05:50 Lactic Acid 1.40 mmol/L (0.7-2.0) 03/21/22 00:09 Calcium 8.2 mg/dL (8.4-10.2) L 03/23/22 05:50 Total Bilirubin 2.40 mg/dL (0.1-1.2) H 03/21/22 00:09 AST 63 units/L (5-40) H 03/21/22 00:09 ALT 28 units/L (7-56) 03/21/22 00:09 Alkaline Phosphatase 145 units/L (35-129) H 03/21/22 00:09 Total Protein 6.2 g/dL (6.3-8.2) L 03/21/22 00:09 Albumin 2.1 g/dL (3.9-5) L 03/21/22 00:09 Albumin/Globulin Ratio 0.5 % 03/21/22 00:09 Coronavirus (PCR) Negative (Negative) 03/23/22 Unknown Hepatitis A IgM Ab Non-reactive (NonReactive) 03/23/22 11:00 Hep Bs Antigen Non-reactive (Negative) 03/23/22 11:00 Hep B Core IgM Ab Non-reactive (NonReactive) 03/23/22 11:00 Hepatitis C Antibody Non-reactive (NonReactive) 03/23/22 11:00 Blood Type O POSITIVE 03/21/22 05:35 Antibody Screen Negative 03/21/22 05:35 Crossmatch See Detail 03/21/22 05:35 Active Medications - Current Medications Current Medications: Generic Name Dose Route Start Last Admin Trade Name Freq PRN Reason Stop Dose Admin Acetaminophen 650 mg 03/21/22 02:28 Acetaminophen 325 Mg Tab PO Q4H PRN Pain MILD(1-3)/Fever >100.5/JOSEPH Albumin Human 12.5 gm 03/21/22 10:58 Albumin Human 25% (12.5 Gm/50 Ml) Inj IV PETRA PRN Hypotension Albuterol 2.5 mg 03/21/22 02:28 Albuterol 2.5 Mg/3 Ml Nebu IH Q3HRT PRN Shortness Of Breath Chlordiazepoxide HCl 25 mg 03/21/22 04:30 03/23/22 17:21 Chlordiazepoxide 25 Mg Cap PO 25 mg Q6HR FABIEN Administration Epoetin Arnulfo-epbx 10,000 unit 03/23/22 13:00 03/23/22 12:15 Epoetin Arnulfo-Epbx 10,000 Unit/1 Ml Vial SUB-Q 10,000 unit PETRA PRN Administration dialysis Famotidine 20 mg 03/21/22 10:00 03/23/22 09:50 Famotidine 20 Mg Tab PO 20 mg QAM FABIEN Administration Fluoxetine HCl 20 mg 03/21/22 10:00 03/23/22 09:50 Fluoxetine 20 Mg Cap PO 20 mg QDAY FABIEN Administration Folic Acid 1 mg 03/21/22 10:00 03/23/22 09:50 Folic Acid 1 Mg Tab PO 1 mg QDAY FABIEN Administration Heparin Sodium (Porcine) 5,000 unit 03/21/22 22:00 03/23/22 09:51 Heparin 5,000 Unit/1 Ml Vial SUB-Q 5,000 unit Q12HR FABIEN Administration Sodium Chloride 100 mls @ 999 mls/hr 03/21/22 10:57 Nacl 0.9% IV PETRA PRN Hypotension Lactulose 20 gm 03/21/22 10:00 03/23/22 09:50 Lactulose 20 Gm/30 Ml Oral Liqd PO 20 gm QDAY FABIEN Administration Midodrine 10 mg 03/21/22 08:00 03/23/22 17:21 Midodrine 10 Mg Tab PO 10 mg TID@0800,1200,1600 FABIEN Administration Morphine Sulfate 4 mg 03/21/22 02:28 Morphine 4 Mg/1 Ml Inj IV Q4H PRN Pain , Severe (7-10) Morphine Sulfate 2 mg 03/21/22 02:28 03/23/22 05:23 Morphine 2 Mg/1 Ml Inj IV 2 mg Q4H PRN Administration Pain, Moderate (4-6) Ondansetron HCl 4 mg 03/21/22 02:28 Ondansetron 4 Mg/2 Ml Inj IV Q8H PRN Nausea And Vomiting Rifaximin 550 mg 03/21/22 10:00 03/23/22 09:50 Rifaximin 550 Mg Tab PO 550 mg BID FABIEN Administration Sodium Bicarbonate 1,300 mg 03/21/22 08:00 03/23/22 17:21 Sodium Bicarbonate 650 Mg Tab PO 1,300 mg TIDWM FABIEN Administration Sodium Chloride 10 ml 03/21/22 10:00 03/23/22 09:50 Sodium Chloride 0.9% 10 Ml Flush Syringe IV 10 ml BID FABIEN Administration Sodium Chloride 10 ml 03/21/22 02:28 Sodium Chloride 0.9% 10 Ml Flush Syringe IV PRN PRN LINE FLUSH Thiamine HCl 100 mg 03/21/22 10:00 03/23/22 09:50 Thiamine 100 Mg Tab PO 100 mg QDAY FABIEN Administration Trazodone HCl 50 mg 03/21/22 22:00 03/22/22 21:24 Trazodone 50 Mg Tab PO 50 mg QHS FABIEN Administration Nutrition/Malnutrition Assess - Dietary Evaluation Nutrition/Malnutrition Findings: Nutrition Notes Start: 03/22/22 16:46 Freq: Status: Active Protocol: Document 03/22/22 16:46 JOSELUIS (Rec: 03/22/22 17:28 JOSELUIS [id number]) Nutrition Notes Need for Assessment generated from: MD Order,obstetrics nurse Initial or Follow up Assessment Current Diagnosis CKD (stage V CKD),Hypertension Other Pertinent Diagnosis ESRD+HD, Bilateral-LE & Sacral Ulcers, Anemia, EtOH Abuse, Liver Cancer. Current Diet Renal Diet (since B 03/21), D Suppl (from D 03/22). Labs/Tests 03/22: Na 136, BUN 24, Crea 3. 2, Glu 117, Ca 7.9. Pertinent Medications 03/22: Folic acid, Thiamine, others nutritionally unremarkable. 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 Body weight in chart (200 Kg) is incorrect, I verified with RN over the phone: 103.9 Kg. Weight Status Morbidly Obese Subjective/Other Information RD consult for skin risk, poor PO intake, and dietary supplementation assessments. Pt's PO ijntake of meals has been Poor (25-50%) but well tolerated, according to ADL notes. Pt is on Nasal Cannula, O2 saturation @ 98%, according to Physical Assessment History notes. Pt presents several Sacral and bilateral-LE stage I & II ulcers as signs of concern for skin risk at the time, according to Physical Assessment History notes and Admision Documents. I will prescribe dietary supplementation to support wound healing processes and to compensate for poor or insufficient PO intake of meals during LOS. Percent of energy/protein needs met: Prescribed Renal Diet provides for energy/protein needs (2, 072 Kcal/77 g) during LOS; additionally, Dietary Supplements will compensate for possible poor or insufficient PO intake of meals and support wound healing processes with 1,040 Kcal and 43 g of protein. Burn Absent Trauma Absent GI Symptoms None Food Allergy No Skin Integrity/Comment Bilateral-LE & Sacral Ulcers. 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 As Evidenced by Signs and Symptoms Pt's PO ijntake of meals has been Poor (25-50%) but well tolerated, according to ADL notes. #1 Nutrition Diagnosis Increased nutrient needs ( specify in comment below) Etiology Pt is mostly bedbound, negligence. As Evidenced by Signs and Symptoms Pt presents several Sacral and bilateral-LE stage I & II ulcers as signs of concern for skin risk at the time, according to Physical Assessment History notes and Admision Documents. Is patient on ventilator? No Is Patient Ambulatory and/or Out of Bed No REE-([facility]-confined to bed) 2007.548 Kcal/Kg value to use for calculation 16 Approximate Energy Requirements Using 1662 kcal/Kg Calculation Used for Recommendations Kcal/kg Additional Notes Protein: >1.2 g/Kg AdjBW; >98 g/day. Fluids: 1 ml/Kcal, or as per MD. Nutrition Intervention Change Diet Order: Continue Renal Diet. Add Supplement/Snack (indicate name/kcal Start 8 fl oz Nepro w/ /protein ) CARBSTEADY; BID. Start 28.8 g pkt Isidoro; BID. Provides kCal: 1,040 Provides Protein (gm) 43 Goal #1 Support, through dietary supplementation, wound healing processes during LOS. Goal #2 Compensate, through dietary supplementation, for possible poor or insufficient PO intake of meals during LOS. Follow-Up By: 03/29/22 Additional Comments Continue monitoring food tolerance, %PO intake of meals , dietary supplements, and BM.
[2022-03-23] MEDS: traZODone 50 MG TAB PO SCH (22:48)
[2022-03-24] MEDS: chlordiazePOXIDE 25 MG CAP PO SCH ×5 (00:18→23:13)
[2022-03-24] MEDS: MORPHINE 2 MG/1 ML INJ IV PRN ×2 (02:55→18:56)
[2022-03-24] MEDS: SODIUM BICARBONATE 650 MG TAB PO SCH ×3 (09:42→18:55)
[2022-03-24] MEDS: MIDODRINE 10 MG TAB PO SCH ×3 (09:44→18:56)
[2022-03-24] MEDS: FAMOTIDINE 20 MG TAB PO SCH (10:00)
--- NOTE | 2022-03-24 11:13 | Progress Note ---
Assessment and Plan - Patient Problems (1) End stage renal disease Current Visit: No Status: Acute Plan to address problem: Cont HD on TTS schedule while inpatient. with albumin support prn and on midodrine 10mg po tid to maintain MAP > 65mmHg. Patient does not have outpatient HD currently due to uninsured status. (2) Anemia Current Visit: Yes Status: Acute Qualifiers: Anemia type: unspecified type Qualified Code(s): D64.9 - Anemia, unspecified Plan to address problem: s/p 1PRBC transfusion. cont EPO with HD (3) Chronic ulcer of leg Current Visit: Yes Status: Acute Qualifiers: Laterality: unspecified laterality Non-pressure ulcer stage: unspecified non-pressure ulcer stage Qualified Code(s): L97.909 - Non-pressure chronic ulcer of unspecified part of unspecified lower leg with unspecified severity (4) Hypotension Current Visit: Yes Status: Acute Plan to address problem: cont midodrine 10mg po tid. Albumin support prn for HD to maintain MAP > 65mmHg Subjective Date of service: 03/24/22 Principal diagnosis: ESRD Interval history: Patient is weak, lethargic, cont HD on TTS schedule with albumin support as needed Objective - Vital Signs Vital signs: Vital Signs - 12hr 03/24/22 03/24/22 03/24/22 01:03 06:18 10:47 Temperature 99.0 F Pulse Rate 109 H Respiratory 18 18 Rate Blood Pressure 92/52 O2 Sat by Pulse 98 94 93 Oximetry - General Appearance General appearance: appears stated age, cachectic, chronically ill, fatigue, frail EENT: ATNC, PERRL, mucous membranes moist Neck: no JVD Respiratory: Present: Decreased Breath Sounds Cardiology: regular, S1S2 Gastrointestinal: normoactive bowel sounds Integumentary: chronic venous stasis Neurologic: no focal deficit, alert and oriented x3, CN 3-12 intact - Lab 03/23/22 05:50 03/23/22 05:50 Most recent lab results Calcium 8.2 mg/dL (8.4-10.2) L 03/23/22 05:50 Medications & Allergies - Medications Allergies/Adverse Reactions: Allergies Penicillins Allergy (Verified 03/16/22 19:11) Rash Home Medications: Home Medications Medication Instructions Recorded Confirmed Last Taken Type Multivitamin Tab [Multiple Vitamin 1 each PO ONCE #30 tablet 04/27/16 03/22/22 Unknown Rx TAB (Theragran)] FLUoxetine [PROzac] 20 mg PO QDAY #30 capsule 03/14/22 03/22/22 Unknown Rx FLUoxetine [PROzac] 20 mg PO QDAY #30 capsule 03/14/22 03/22/22 Unknown Rx Folic Acid [Folvite] 1 mg PO QDAY #30 tablet 03/14/22 03/22/22 Unknown Rx Lactulose [Cephulac] 20 gm PO QDAY #30 oral.liqd 03/14/22 03/22/22 Unknown Rx Midodrine [Proamatine] 10 mg PO TID@0800,1200,1600 #90 03/14/22 03/22/22 Unknown Rx tablet Pantoprazole [Protonix TAB] 40 mg PO QDAC #30 tablet 03/14/22 03/22/22 Unknown Rx Rifaximin [Xifaxan] 550 mg PO BID #60 tablet 03/14/22 03/22/22 Unknown Rx Sodium Bicarbonate 1,300 mg PO TID #90 tablet 03/14/22 03/22/22 Unknown Rx Thiamine [Vitamin B-1] 100 mg PO QDAY #30 tablet 03/14/22 03/22/22 Unknown Rx Thiamine [Vitamin B-1] 100 mg PO QDAY #30 tablet 03/14/22 03/22/22 Unknown Rx chlordiazePOXIDE [Librium] 25 mg PO Q6H #10 capsule 03/14/22 03/22/22 Unknown Rx traZODone [Desyrel] 50 mg PO QHS #30 tab 03/14/22 03/22/22 Unknown Rx Active Medications: Generic Name Dose Route Start Last Admin Trade Name Freq PRN Reason Stop Dose Admin Acetaminophen 650 mg 03/21/22 02:28 Acetaminophen 325 Mg Tab PO Q4H PRN Pain MILD(1-3)/Fever >100.5/JOSEPH Albumin Human 12.5 gm 03/21/22 10:58 Albumin Human 25% (12.5 Gm/50 Ml) Inj IV PETRA PRN Hypotension Albuterol 2.5 mg 03/21/22 02:28 Albuterol 2.5 Mg/3 Ml Nebu IH Q3HRT PRN Shortness Of Breath Chlordiazepoxide HCl 25 mg 03/21/22 04:30 03/24/22 06:32 Chlordiazepoxide 25 Mg Cap PO 25 mg Q6HR FABIEN Administration Epoetin Arnulfo-epbx 10,000 unit 03/23/22 13:00 03/23/22 12:15 Epoetin Arnulfo-Epbx 10,000 Unit/1 Ml Vial SUB-Q 10,000 unit PETRA PRN Administration dialysis Famotidine 20 mg 03/21/22 10:00 03/23/22 09:50 Famotidine 20 Mg Tab PO 20 mg QAM FABIEN Administration Fluoxetine HCl 20 mg 03/21/22 10:00 03/23/22 09:50 Fluoxetine 20 Mg Cap PO 20 mg QDAY FABIEN Administration Folic Acid 1 mg 03/21/22 10:00 03/23/22 09:50 Folic Acid 1 Mg Tab PO 1 mg QDAY FABIEN Administration Heparin Sodium (Porcine) 5,000 unit 03/21/22 22:00 03/23/22 22:48 Heparin 5,000 Unit/1 Ml Vial SUB-Q 5,000 unit Q12HR FABIEN Administration Sodium Chloride 100 mls @ 999 mls/hr 03/21/22 10:57 Nacl 0.9% IV PETRA PRN Hypotension Lactulose 20 gm 03/21/22 10:00 03/23/22 09:50 Lactulose 20 Gm/30 Ml Oral Liqd PO 20 gm QDAY FABIEN Administration Midodrine 10 mg 03/21/22 08:00 03/23/22 17:21 Midodrine 10 Mg Tab PO 10 mg TID@0800,1200,1600 FABIEN Administration Morphine Sulfate 4 mg 03/21/22 02:28 Morphine 4 Mg/1 Ml Inj IV Q4H PRN Pain , Severe (7-10) Morphine Sulfate 2 mg 03/21/22 02:28 03/24/22 02:55 Morphine 2 Mg/1 Ml Inj IV 2 mg Q4H PRN Administration Pain, Moderate (4-6) Ondansetron HCl 4 mg 03/21/22 02:28 Ondansetron 4 Mg/2 Ml Inj IV Q8H PRN Nausea And Vomiting Rifaximin 550 mg 03/21/22 10:00 03/23/22 22:48 Rifaximin 550 Mg Tab PO 550 mg BID FABIEN Administration Sodium Bicarbonate 1,300 mg 03/21/22 08:00 03/23/22 17:21 Sodium Bicarbonate 650 Mg Tab PO 1,300 mg TIDWM FABIEN Administration Sodium Chloride 10 ml 03/21/22 10:00 03/23/22 22:48 Sodium Chloride 0.9% 10 Ml Flush Syringe IV 10 ml BID FABIEN Administration Sodium Chloride 10 ml 03/21/22 02:28 Sodium Chloride 0.9% 10 Ml Flush Syringe IV PRN PRN LINE FLUSH Thiamine HCl 100 mg 03/21/22 10:00 03/23/22 09:50 Thiamine 100 Mg Tab PO 100 mg QDAY FABIEN Administration Trazodone HCl 50 mg 03/21/22 22:00 03/23/22 22:48 Trazodone 50 Mg Tab PO 50 mg QHS FABIEN Administration
[2022-03-24] MEDS: RIFAXIMIN 550 MG TAB PO SCH ×2 (11:44→21:29)
[2022-03-24] MEDS: FLUoxetine 20 MG CAP PO SCH (11:44)
[2022-03-24] MEDS: FOLIC ACID 1 MG TAB PO SCH (11:44)
[2022-03-24] MEDS: THIAMINE 100 MG TAB PO SCH (11:45)
[2022-03-24] MEDS: HEPARIN 5,000 UNIT/1 ML VIAL SUB-Q SCH ×2 (11:46→21:28)
[2022-03-24] MEDS: LACTULOSE 20 GM/30 ML ORAL LIQD PO SCH (11:46)
--- NOTE | 2022-03-24 11:49 | Discharge Summary ---
Providers - Providers Date of Admission: 03/21/22 02:29 Date of discharge: 03/24/22 Attending physician: OLIVER SANTOYO 03/21/22 02:15 Consult to Physician [CONS] Routine Comment: pls notify physician in AM since no urgent need Consulting Provider: BEV LOPEZ Physician Instructions: Reason For Exam: ESRD dialysis 03/21/22 18:30 Consult to Dietitian/Nutrition [CONS] Routine Physician Instructions: Reason For Exam: Reason for Consult: Poor oral intake 03/23/22 16:46 Consult to Wound/ET Nurse [CONS] Urgent Reason For Exam: wound eval Primary care physician: FINANCE MANAGER Hospitalization Reason for admission: Generalized body aches/severe anemia/needing dialysis Condition: Stable Pertinent studies: Chest x-ray Procedures: Hemodialysis per schedule Hospital course: -Patient received total 3 units PRBC Hb 8.4 - Symptomatic anemia Hb 6.2-6.5-8.4 Patient received total 3 units hemoglobin improved to 8.4 Closely monitor H&H and transfuse additional PRBC --End stage renal disease on HD Patient missed hemodialysis. Nephrology following HD per schedule, blood transfusion during dialysis --Generalized body aches Tylenol 650 mg p.o. every 6 hours as needed. Resume home medication. We will monitor the patient closely and adjust -- Chronic ulcer of leg Is stable. 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 End-stage renal disease on hemodialysis. Generalized body aches. Chronic ulcers leg. Alcohol abuse. Severe protein calorie malnutrition. Severe hypoalbuminemia. Thrombocytopenia. Morbid obesity BMI 37.0 Time spent for discharge: 40 min Core Measure Documentation - Palliative Care Palliative Care/ Comfort Measures: Not Applicable - Core Measures Any of the following diagnoses?: none Exam - Constitutional Vitals: Temp Pulse Resp BP Pulse Ox 99.0 F 109 H 18 92/52 93 03/24/22 06:18 03/24/22 06:18 03/24/22 06:18 03/24/22 06:03/24/22 10:47 General appearance: Present: no acute distress, well-nourished, obese - EENT Eyes: Present: PERRL, EOM intact - Neck Neck: Present: supple, normal ROM - Respiratory Respiratory effort: labored Respiratory: bilateral: diminished, negative: rales, rhonchi, wheezing - Cardiovascular Rhythm: regular Heart Sounds: Present: S1 & S2 - Extremities Extremities: no ischemia, No edema - Abdominal General gastrointestinal: Present: soft, non-tender, non-distended, normal bowel sounds - Integumentary Integumentary: Present: clear, warm - Musculoskeletal Musculoskeletal: strength equal bilaterally, generalized weakness - Psychiatric Psychiatric: appropriate mood/affect, cooperative - Neurologic Neurologic: moves all extremities Plan Activity: advance as tolerated, fall precautions Diet: renal Additional Instructions: Patient was advised to go to the nearest hemodialysis center per schedule MWF [Sunday, Sunday and Sunday] Next dialysis on 03/27/2022. If you have worsening symptoms contact MD or go to the nearest emergency room as needed. Strongly advised to comply with medications, diet, hemodialysis per schedule Follow up with: PRIMARY CARE,MD [Primary Care Provider] - 3-5 Days Prescriptions: Ferrous Sulfate [Feosol 325 MG tab] 325 mg PO BID #60 tablet oxyCODONE /ACETAMINOPHEN [Percocet 5/325] 1 tab PO QHS #7 Midodrine [Proamatine] 10 mg PO TID@0800,1200,1600 #90 tablet
[2022-03-24] MEDS: traZODone 50 MG TAB PO SCH (21:29)
[2022-03-25] MEDS: chlordiazePOXIDE 25 MG CAP PO SCH ×3 (05:34→17:32)
[2022-03-25] MEDS: ACETAMINOPHEN 325 MG TAB PO PRN ×2 (09:00→22:05)
[2022-03-25] MEDS: SODIUM BICARBONATE 650 MG TAB PO SCH ×3 (10:32→17:32)
[2022-03-25] MEDS: MIDODRINE 10 MG TAB PO SCH ×3 (10:32→17:33)
[2022-03-25] MEDS: RIFAXIMIN 550 MG TAB PO SCH ×2 (14:35→21:57)
[2022-03-25] MEDS: FLUoxetine 20 MG CAP PO SCH (14:35)
[2022-03-25] MEDS: THIAMINE 100 MG TAB PO SCH (14:35)
[2022-03-25] MEDS: FAMOTIDINE 20 MG TAB PO SCH (14:35)
[2022-03-25] MEDS: FOLIC ACID 1 MG TAB PO SCH (14:35)
[2022-03-25] MEDS: HEPARIN 5,000 UNIT/1 ML VIAL SUB-Q SCH ×2 (14:36→21:57)
[2022-03-25] MEDS: LACTULOSE 20 GM/30 ML ORAL LIQD PO SCH (14:36)
--- NOTE | 2022-03-25 19:27 | Progress Note ---
Assessment and Plan Assessment and plan: - Symptomatic anemia Hb 6.2-6.5-8.4 Patient received total 3 units hemoglobin improved to 8.4 Closely monitor H&H and transfuse additional PRBC --End stage renal disease on HD Patient missed hemodialysis. Nephrology following HD per schedule, blood transfusion during dialysis --Generalized body aches Tylenol 650 mg p.o. every 6 hours as needed. Resume home medication. We will monitor the patient closely and adjust -- Chronic ulcer of leg Is stable. 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 Pepcid 20 mg p.o. twice daily for GI prophylaxis. Patient is a full code -- Full CODE STATUS --DC planning; Per case management and family Daughter Demetria contact number [phone] Closely monitor the patient and adjust the management as needed Follow H&H night and tomorrow morning, follow nephrology recommendations Possible discharge tomorrow if stable and cleared by nephrology 03/21; patient's hemoglobin was 6.2 Transfuse 1 unit of PRBC and check H&H\ 03/22; patient's hemoglobin this morning was 6.5 after 1 unit of PRBC transfused 2 additional PRBC closely monitor 03/23; received total 3 units PRBC Hb today 8.5 Possible discharge tomorrow if stable DC planning per case management -Patient received total 3 units PRBC Hb 8.4 03/24; patient discharged home However daughter did not come to pick her up Continue current management 03/25; again patient's daughter was contacted Patient daughter did not come to pick her up Patient is discharged History Interval history: Patient was initially discharged yesterday, however family unable to pick her up Patient is hemodynamically and clinically stable Nurse charge nurse, nursing supervisor phosphoric acid Ms. costa discussed with the family the daughter Informed that the patient has been discharged since yesterday, advised her to make arrangements to take the patient home as patient is medically stable And patient will follow up with outpatient dialysis per schedule Daughter verbalized understanding, making arrangements to pick her up Hospitalist Physical - Constitutional Vitals: Temp Pulse Resp BP Pulse Ox 98.6 F 89 20 98/51 93 03/25/22 16:11 03/25/22 16:11 03/25/22 16:11 03/25/22 16:11 03/25/22 16:11 General appearance: Present: no acute distress, well-nourished, obese, other (Frail) - EENT Eyes: Present: PERRL, EOM intact - Neck Neck: Present: supple, normal ROM - Respiratory Respiratory effort: normal Respiratory: bilateral: diminished, negative: rales, rhonchi, wheezing - Cardiovascular Rhythm: regular Heart Sounds: Present: S1 & S2 - Extremities Extremities: no ischemia, No edema - Abdominal General gastrointestinal: soft, non-tender, non-distended - Integumentary Integumentary: Present: clear, warm - Psychiatric Psychiatric: appropriate mood/affect, cooperative - Neurologic Neurologic: CNII-XII intact, moves all extremities Results - Labs CBC & Chem 7: 03/23/22 05:50 03/23/22 05:50 Labs: Laboratory Last Values WBC 4.1 K/mm3 (4.5-11.0) L 03/21/22 10:42 RBC 1.83 M/mm3 (3.65-5.03) L 03/21/22 10:42 Hgb 8.4 gm/dl (10.1-14.3) L 03/23/22 05:50 Hct 24.6 % (30.3-42.9) L 03/23/22 05:50 MCV 103 fl (79-97) H 03/21/22 10:42 MCH 34 pg (28-32) H 03/21/22 10:42 MCHC 33 % (30-34) 03/21/22 10:42 RDW 27.9 % (13.2-15.2) H 03/21/22 10:42 Plt Count 56 K/mm3 (140-440) L 03/21/22 10:42 Baso % (Auto) Postmaster Relief 03/21/22 00:09 Add Manual Diff Complete 03/21/22 10:42 Total Counted 100 03/21/22 10:42 Seg Neuts % (Manual) 59.0 % (40.0-70.0) 03/21/22 10:42 Band Neutrophils % 0 % 03/21/22 10:42 Lymphocytes % (Manual) 31.0 % (13.4-35.0) 03/21/22 10:42 Reactive Lymphs % (Man) 0 % 03/21/22 10:42 Monocytes % (Manual) 5.0 % (0.0-7.3) 03/21/22 10:42 Eosinophils % (Manual) 3.0 % (0.0-4.3) 03/21/22 10:42 Basophils % (Manual) 2.0 % (0.0-1.8) H 03/21/22 10:42 Metamyelocytes % 0 % 03/21/22 10:42 Myelocytes % 0 % 03/21/22 10:42 Promyelocytes % 0 % 03/21/22 10:42 Blast Cells % 0 % 03/21/22 10:42 Nucleated RBC % Not Reportable 03/21/22 10:42 Seg Neutrophils # Man 2.4 K/mm3 (1.8-7.7) 03/21/22 10:42 Band Neutrophils # 0.0 K/mm3 03/21/22 10:42 Lymphocytes # (Manual) 1.3 K/mm3 (1.2-5.4) 03/21/22 10:42 Abs React Lymphs (Man) 0.0 K/mm3 03/21/22 10:42 Monocytes # (Manual) 0.2 K/mm3 (0.0-0.8) 03/21/22 10:42 Eosinophils # (Manual) 0.1 K/mm3 (0.0-0.4) 03/21/22 10:42 Basophils # (Manual) 0.1 K/mm3 (0.0-0.1) 03/21/22 10:42 Metamyelocytes # 0.0 K/mm3 03/21/22 10:42 Myelocytes # 0.0 K/mm3 03/21/22 10:42 Promyelocytes # 0.0 K/mm3 03/21/22 10:42 Blast Cells # 0.0 K/mm3 03/21/22 10:42 WBC Morphology Not Reportable 03/21/22 10:42 Hypersegmented Neuts Not Reportable 03/21/22 10:42 Hyposegmented Neuts Not Reportable 03/21/22 10:42 Hypogranular Neuts Not Reportable 03/21/22 10:42 Smudge Cells Not Reportable 03/21/22 10:42 Toxic Granulation Not Reportable 03/21/22 10:42 Toxic Vacuolation Not Reportable 03/21/22 10:42 Dohle Bodies Not Reportable 03/21/22 10:42 Pelger-Huet Anomaly Not Reportable 03/21/22 10:42 Kevin Rods Not Reportable 03/21/22 10:42 Platelet Estimate Consistent w auto 03/21/22 10:42 Clumped Platelets Not Reportable 03/21/22 10:42 Plt Clumps, EDTA Not Reportable 03/21/22 10:42 Large Platelets Not Reportable 03/21/22 10:42 Giant Platelets Not Reportable 03/21/22 10:42 Platelet Satelliting Not Reportable 03/21/22 10:42 Plt Morphology Comment Not Reportable 03/21/22 10:42 RBC Morphology Not Reportable 03/21/22 10:42 Dimorphic RBCs Not Reportable 03/21/22 10:42 Polychromasia Not Reportable 03/21/22 10:42 Hypochromasia 1+ 03/21/22 10:42 Poikilocytosis Few 03/21/22 10:42 Anisocytosis 2+ 03/21/22 10:42 Microcytosis Not Reportable 03/21/22 10:42 Macrocytosis 1+ 03/21/22 10:42 Spherocytes Not Reportable 03/21/22 10:42 Pappenheimer Bodies Not Reportable 03/21/22 10:42 Sickle Cells Not Reportable 03/21/22 10:42 Target Cells Not Reportable 03/21/22 10:42 Tear Drop Cells Not Reportable 03/21/22 10:42 Ovalocytes Not Reportable 03/21/22 10:42 Stomatocytes Rare 03/21/22 10:42 Helmet Cells Not Reportable 03/21/22 10:42 Johnson-Young Bodies Not Reportable 03/21/22 10:42 [place] Rings Not Reportable 03/21/22 10:42 Cantil Cells Not Reportable 03/21/22 10:42 Bite Cells Not Reportable 03/21/22 10:42 Crenated Cell Not Reportable 03/21/22 10:42 Elliptocytes Not Reportable 03/21/22 10:42 Acanthocytes (Spur) Rare 03/21/22 10:42 Rouleaux Not Reportable 03/21/22 10:42 Hemoglobin C Crystals Not Reportable 03/21/22 10:42 Schistocytes Not Reportable 03/21/22 10:42 Malaria parasites Not Reportable 03/21/22 10:42 Kiran Bodies Not Reportable 03/21/22 10:42 Hem Pathologist Commnt No 03/21/22 10:42 Sodium 135 mmol/L (137-145) L 03/23/22 05:50 Potassium 4.0 mmol/L (3.6-5.0) 03/23/22 05:50 Chloride 99.5 mmol/L (98-107) 03/23/22 05:50 Carbon Dioxide 27 mmol/L (22-30) 03/23/22 05:50 Anion Gap 13 mmol/L 03/23/22 05:50 BUN 29 mg/dL (7-17) H 03/23/22 05:50 Creatinine 3.8 mg/dL (0.6-1.2) H 03/23/22 05:50 Estimated GFR 13 ml/min 03/23/22 05:50 BUN/Creatinine Ratio 8 % 03/23/22 05:50 Glucose 86 mg/dL (65-100) 03/23/22 05:50 Lactic Acid 1.40 mmol/L (0.7-2.0) 03/21/22 00:09 Calcium 8.2 mg/dL (8.4-10.2) L 03/23/22 05:50 Total Bilirubin 2.40 mg/dL (0.1-1.2) H 03/21/22 00:09 AST 63 units/L (5-40) H 03/21/22 00:09 ALT 28 units/L (7-56) 03/21/22 00:09 Alkaline Phosphatase 145 units/L (35-129) H 03/21/22 00:09 Total Protein 6.2 g/dL (6.3-8.2) L 03/21/22 00:09 Albumin 2.1 g/dL (3.9-5) L 03/21/22 00:09 Albumin/Globulin Ratio 0.5 % 03/21/22 00:09 Coronavirus (PCR) Negative (Negative) 03/23/22 Unknown Hepatitis A IgM Ab Non-reactive (NonReactive) 03/23/22 11:00 Hep Bs Antigen Non-reactive (Negative) 03/23/22 11:00 Hep B Core IgM Ab Non-reactive (NonReactive) 03/23/22 11:00 Hepatitis C Antibody Non-reactive (NonReactive) 03/23/22 11:00 Blood Type O POSITIVE 03/21/22 05:35 Antibody Screen Negative 03/21/22 05:35 Crossmatch See Detail 03/21/22 05:35 Senior/IV: Voiding Method Incontinent Active Medications - Current Medications Current Medications: Generic Name Dose Route Start Last Admin Trade Name Freq PRN Reason Stop Dose Admin Acetaminophen 650 mg 03/21/22 02:28 03/25/22 09:00 Acetaminophen 325 Mg Tab PO 650 mg Q4H PRN Administration Pain MILD(1-3)/Fever >100.5/JOSEPH Albumin Human 12.5 gm 03/21/22 10:58 Albumin Human 25% (12.5 Gm/50 Ml) Inj IV PETRA PRN Hypotension Albuterol 2.5 mg 03/21/22 02:28 Albuterol 2.5 Mg/3 Ml Nebu IH Q3HRT PRN Shortness Of Breath Chlordiazepoxide HCl 25 mg 03/21/22 04:30 03/25/22 17:32 Chlordiazepoxide 25 Mg Cap PO 25 mg Q6HR FABIEN Administration Epoetin Arnulfo-epbx 10,000 unit 03/23/22 13:00 03/23/22 12:15 Epoetin Arnulfo-Epbx 10,000 Unit/1 Ml Vial SUB-Q 10,000 unit PETRA PRN Administration dialysis Famotidine 20 mg 03/21/22 10:00 03/25/22 14:35 Famotidine 20 Mg Tab PO 20 mg QAM FABIEN Administration Fluoxetine HCl 20 mg 03/21/22 10:00 03/25/22 14:35 Fluoxetine 20 Mg Cap PO 20 mg QDAY FABIEN Administration Folic Acid 1 mg 03/21/22 10:00 03/25/22 14:35 Folic Acid 1 Mg Tab PO 1 mg QDAY FABIEN Administration Heparin Sodium (Porcine) 5,000 unit 03/21/22 22:00 03/25/22 14:36 Heparin 5,000 Unit/1 Ml Vial SUB-Q 5,000 unit Q12HR FABIEN Administration Sodium Chloride 100 mls @ 999 mls/hr 03/21/22 10:57 Nacl 0.9% IV PETRA PRN Hypotension Lactulose 20 gm 03/21/22 10:00 03/25/22 14:36 Lactulose 20 Gm/30 Ml Oral Liqd PO 20 gm QDAY FABIEN Administration Midodrine 10 mg 03/21/22 08:00 03/25/22 17:33 Midodrine 10 Mg Tab PO 10 mg TID@0800,1200,1600 FABIEN Administration Morphine Sulfate 4 mg 03/21/22 02:28 Morphine 4 Mg/1 Ml Inj IV Q4H PRN Pain , Severe (7-10) Morphine Sulfate 2 mg 03/21/22 02:28 03/24/22 18:56 Morphine 2 Mg/1 Ml Inj IV 2 mg Q4H PRN Administration Pain, Moderate (4-6) Ondansetron HCl 4 mg 03/21/22 02:28 Ondansetron 4 Mg/2 Ml Inj IV Q8H PRN Nausea And Vomiting Rifaximin 550 mg 03/21/22 10:00 03/25/22 14:35 Rifaximin 550 Mg Tab PO 550 mg BID FABIEN Administration Sodium Bicarbonate 1,300 mg 03/21/22 08:00 03/25/22 17:32 Sodium Bicarbonate 650 Mg Tab PO 1,300 mg TIDWM FABIEN Administration Sodium Chloride 10 ml 03/21/22 10:00 03/25/22 14:35 Sodium Chloride 0.9% 10 Ml Flush Syringe IV 10 ml BID FABIEN Administration Sodium Chloride 10 ml 03/21/22 02:28 Sodium Chloride 0.9% 10 Ml Flush Syringe IV PRN PRN LINE FLUSH Thiamine HCl 100 mg 03/21/22 10:00 03/25/22 14:35 Thiamine 100 Mg Tab PO 100 mg QDAY FABIEN Administration Trazodone HCl 50 mg 03/21/22 22:00 03/24/22 21:29 Trazodone 50 Mg Tab PO 50 mg QHS FABIEN Administration Nutrition/Malnutrition Assess - Dietary Evaluation Nutrition/Malnutrition Findings: Nutrition Notes Start: 03/22/22 16:46 Freq: Status: Active Protocol: Document 03/22/22 16:46 JOSELUIS (Rec: 03/22/22 17:28 JOSELUIS [id number]) Nutrition Notes Need for Assessment generated from: MD Order,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 Current Diet Renal Diet (since B 03/21), D Suppl (from D 03/22). Labs/Tests 03/22: Na 136, BUN 24, Crea 3. 2, Glu 117, Ca 7.9. Pertinent Medications 03/22: Folic acid, Thiamine, others nutritionally unremarkable. 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 Body weight in chart (200 Kg) is incorrect, I verified with RN over the phone: 103.9 Kg. Weight Status Morbidly Obese Subjective/Other Information RD consult for skin risk, poor PO intake, and dietary supplementation assessments. Pt's PO ijntake of meals has been Poor (25-50%) but well tolerated, according to ADL notes. Pt is on Nasal Cannula, O2 saturation @ 98%, according to Physical Assessment History notes. Pt presents several Sacral and bilateral-LE stage I & II ulcers as signs of concern for skin risk at the time, according to Physical Assessment History notes and Admision Documents. I will prescribe dietary supplementation to support wound healing processes and to compensate for poor or insufficient PO intake of meals during LOS. Percent of energy/protein needs met: Prescribed Renal Diet provides for energy/protein needs (2, 072 Kcal/77 g) during LOS; additionally, Dietary Supplements will compensate for possible poor or insufficient PO intake of meals and support wound healing processes with 1,040 Kcal and 43 g of protein. Burn Absent Trauma Absent GI Symptoms None Food Allergy No Skin Integrity/Comment Bilateral-LE & Sacral Ulcers. Current % PO Poor (25-49%) Minimum of two criteria No Fluid Accumulation N/A Reduced Silk Screen Cutter Strength N/A (non-severe) Protein-Calorie Malnutrition N\A #2 Nutrition Diagnosis Predicted suboptimal energy intake Etiology Possibly associated with EtOH Abuse. As Evidenced by Signs and Symptoms Pt's PO ijntake of meals has been Poor (25-50%) but well tolerated, according to ADL notes. #1 Nutrition Diagnosis Increased nutrient needs ( specify in comment below) Etiology Pt is mostly bedbound, negligence. As Evidenced by Signs and Symptoms Pt presents several Sacral and bilateral-LE stage I & II ulcers as signs of concern for skin risk at the time, according to Physical Assessment History notes and Admision Documents. Is patient on ventilator? No Is Patient Ambulatory and/or Out of Bed No REE-([place]-confined to bed) 2007.548 Kcal/Kg value to use for calculation 16 Approximate Energy Requirements Using 1662 kcal/Kg Calculation Used for Recommendations Kcal/kg Additional Notes Protein: >1.2 g/Kg AdjBW; >98 g/day. Fluids: 1 ml/Kcal, or as per MD. Nutrition Intervention Change Diet Order: Continue Renal Diet. Add Supplement/Snack (indicate name/kcal Start 8 fl oz Nepro w/ /protein ) CARBSTEADY; BID. Start 28.8 g pkt Isidoro; BID. Provides kCal: 1,040 Provides Protein (gm) 43 Goal #1 Support, through dietary supplementation, wound healing processes during LOS. Goal #2 Compensate, through dietary supplementation, for possible poor or insufficient PO intake of meals during LOS. Follow-Up By: 03/29/22 Additional Comments Continue monitoring food tolerance, %PO intake of meals , dietary supplements, and BM.
[2022-03-25] MEDS: traZODone 50 MG TAB PO SCH (22:00)
[2022-03-26] MEDS: chlordiazePOXIDE 25 MG CAP PO SCH ×4 (00:36→17:22)
--- NOTE | 2022-03-26 08:16 | Progress Note ---
Assessment and Plan Assessment and plan: - Symptomatic anemia Hb 6.2-6.5-8.4 Patient received total 3 units hemoglobin improved to 8.4 Closely monitor H&H and transfuse additional PRBC --End stage renal disease on HD Patient missed hemodialysis. Nephrology following HD per schedule, blood transfusion during dialysis --Generalized body aches Tylenol 650 mg p.o. every 6 hours as needed. Resume home medication. We will monitor the patient closely and adjust -- Chronic ulcer of leg Is stable. 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 Pepcid 20 mg p.o. twice daily for GI prophylaxis. Patient is a full code -- Full CODE STATUS --DC planning; Per case management and family Daughter Demetria contact number [phone] Closely monitor the patient and adjust the management as needed Follow H&H night and tomorrow morning, follow nephrology recommendations Possible discharge tomorrow if stable and cleared by nephrology 03/21; patient's hemoglobin was 6.2 Transfuse 1 unit of PRBC and check H&H\ 03/22; patient's hemoglobin this morning was 6.5 after 1 unit of PRBC transfused 2 additional PRBC closely monitor 03/23; received total 3 units PRBC Hb today 8.5 Possible discharge tomorrow if stable DC planning per case management -Patient received total 3 units PRBC Hb 8.4 03/26; patient awaiting to be picked up by the family Patient has been discharged 2 days Family aware History Interval history: I have seen and examined the patient at the bedside Patient's chart and medications reviewed patient is discharged and awaiting daughter to come and pick her up Case management talk to the daughter multiple x7 made her known the discharge planning patient is stable and cleared for discharge Family member needed to come and steel pickler the patient Hospitalist Physical - Constitutional Vitals: Temp Pulse Resp BP Pulse Ox 98.5 F 84 16 111/58 97 03/26/22 04:49 03/26/22 04:49 03/26/22 04:49 03/26/22 04:49 03/26/22 04:49 General appearance: Present: no acute distress, well-nourished, obese, other (Very frail) - EENT Eyes: Present: PERRL, EOM intact - Neck Neck: Present: supple, normal ROM - Respiratory Respiratory effort: normal Respiratory: bilateral: diminished, negative: rales, rhonchi, wheezing - Cardiovascular Rhythm: regular Heart Sounds: Present: S1 & S2 - Extremities Extremities: no ischemia, No edema - Abdominal General gastrointestinal: soft, non-tender, non-distended, normal bowel sounds - Integumentary Integumentary: Present: clear, warm - Psychiatric Psychiatric: appropriate mood/affect, cooperative - Neurologic Neurologic: CNII-XII intact, moves all extremities Results - Labs CBC & Chem 7: 03/23/22 05:50 03/23/22 05:50 Labs: Laboratory Last Values WBC 4.1 K/mm3 (4.5-11.0) L 03/21/22 10:42 RBC 1.83 M/mm3 (3.65-5.03) L 03/21/22 10:42 Hgb 8.4 gm/dl (10.1-14.3) L 03/23/22 05:50 Hct 24.6 % (30.3-42.9) L 03/23/22 05:50 MCV 103 fl (79-97) H 03/21/22 10:42 MCH 34 pg (28-32) H 03/21/22 10:42 MCHC 33 % (30-34) 03/21/22 10:42 RDW 27.9 % (13.2-15.2) H 03/21/22 10:42 Plt Count 56 K/mm3 (140-440) L 03/21/22 10:42 Baso % (Auto) Paper Machine Operator 03/21/22 00:09 Add Manual Diff Complete 03/21/22 10:42 Total Counted 100 03/21/22 10:42 Seg Neuts % (Manual) 59.0 % (40.0-70.0) 03/21/22 10:42 Band Neutrophils % 0 % 03/21/22 10:42 Lymphocytes % (Manual) 31.0 % (13.4-35.0) 03/21/22 10:42 Reactive Lymphs % (Man) 0 % 03/21/22 10:42 Monocytes % (Manual) 5.0 % (0.0-7.3) 03/21/22 10:42 Eosinophils % (Manual) 3.0 % (0.0-4.3) 03/21/22 10:42 Basophils % (Manual) 2.0 % (0.0-1.8) H 03/21/22 10:42 Metamyelocytes % 0 % 03/21/22 10:42 Myelocytes % 0 % 03/21/22 10:42 Promyelocytes % 0 % 03/21/22 10:42 Blast Cells % 0 % 03/21/22 10:42 Nucleated RBC % Not Reportable 03/21/22 10:42 Seg Neutrophils # Man 2.4 K/mm3 (1.8-7.7) 03/21/22 10:42 Band Neutrophils # 0.0 K/mm3 03/21/22 10:42 Lymphocytes # (Manual) 1.3 K/mm3 (1.2-5.4) 03/21/22 10:42 Abs React Lymphs (Man) 0.0 K/mm3 03/21/22 10:42 Monocytes # (Manual) 0.2 K/mm3 (0.0-0.8) 03/21/22 10:42 Eosinophils # (Manual) 0.1 K/mm3 (0.0-0.4) 03/21/22 10:42 Basophils # (Manual) 0.1 K/mm3 (0.0-0.1) 03/21/22 10:42 Metamyelocytes # 0.0 K/mm3 03/21/22 10:42 Myelocytes # 0.0 K/mm3 03/21/22 10:42 Promyelocytes # 0.0 K/mm3 03/21/22 10:42 Blast Cells # 0.0 K/mm3 03/21/22 10:42 WBC Morphology Not Reportable 03/21/22 10:42 Hypersegmented Neuts Not Reportable 03/21/22 10:42 Hyposegmented Neuts Not Reportable 03/21/22 10:42 Hypogranular Neuts Not Reportable 03/21/22 10:42 Smudge Cells Not Reportable 03/21/22 10:42 Toxic Granulation Not Reportable 03/21/22 10:42 Toxic Vacuolation Not Reportable 03/21/22 10:42 Dohle Bodies Not Reportable 03/21/22 10:42 Pelger-Huet Anomaly Not Reportable 03/21/22 10:42 Kevin Rods Not Reportable 03/21/22 10:42 Platelet Estimate Consistent w auto 03/21/22 10:42 Clumped Platelets Not Reportable 03/21/22 10:42 Plt Clumps, EDTA Not Reportable 03/21/22 10:42 Large Platelets Not Reportable 03/21/22 10:42 Giant Platelets Not Reportable 03/21/22 10:42 Platelet Satelliting Not Reportable 03/21/22 10:42 Plt Morphology Comment Not Reportable 03/21/22 10:42 RBC Morphology Not Reportable 03/21/22 10:42 Dimorphic RBCs Not Reportable 03/21/22 10:42 Polychromasia Not Reportable 03/21/22 10:42 Hypochromasia 1+ 03/21/22 10:42 Poikilocytosis Few 03/21/22 10:42 Anisocytosis 2+ 03/21/22 10:42 Microcytosis Not Reportable 03/21/22 10:42 Macrocytosis 1+ 03/21/22 10:42 Spherocytes Not Reportable 03/21/22 10:42 Pappenheimer Bodies Not Reportable 03/21/22 10:42 Sickle Cells Not Reportable 03/21/22 10:42 Target Cells Not Reportable 03/21/22 10:42 Tear Drop Cells Not Reportable 03/21/22 10:42 Ovalocytes Not Reportable 03/21/22 10:42 Stomatocytes Rare 03/21/22 10:42 Helmet Cells Not Reportable 03/21/22 10:42 Johnson-Elsberry Bodies Not Reportable 03/21/22 10:42 [place] Rings Not Reportable 03/21/22 10:42 [place] Cells Not Reportable 03/21/22 10:42 Bite Cells Not Reportable 03/21/22 10:42 Crenated Cell Not Reportable 03/21/22 10:42 Elliptocytes Not Reportable 03/21/22 10:42 Acanthocytes (Spur) Rare 03/21/22 10:42 Rouleaux Not Reportable 03/21/22 10:42 Hemoglobin C Crystals Not Reportable 03/21/22 10:42 Schistocytes Not Reportable 03/21/22 10:42 Malaria parasites Not Reportable 03/21/22 10:42 Kiran Bodies Not Reportable 03/21/22 10:42 Hem Pathologist Commnt No 03/21/22 10:42 Sodium 135 mmol/L (137-145) L 03/23/22 05:50 Potassium 4.0 mmol/L (3.6-5.0) 03/23/22 05:50 Chloride 99.5 mmol/L (98-107) 03/23/22 05:50 Carbon Dioxide 27 mmol/L (22-30) 03/23/22 05:50 Anion Gap 13 mmol/L 03/23/22 05:50 BUN 29 mg/dL (7-17) H 03/23/22 05:50 Creatinine 3.8 mg/dL (0.6-1.2) H 03/23/22 05:50 Estimated GFR 13 ml/min 03/23/22 05:50 BUN/Creatinine Ratio 8 % 03/23/22 05:50 Glucose 86 mg/dL (65-100) 03/23/22 05:50 Lactic Acid 1.40 mmol/L (0.7-2.0) 03/21/22 00:09 Calcium 8.2 mg/dL (8.4-10.2) L 03/23/22 05:50 Total Bilirubin 2.40 mg/dL (0.1-1.2) H 03/21/22 00:09 AST 63 units/L (5-40) H 03/21/22 00:09 ALT 28 units/L (7-56) 03/21/22 00:09 Alkaline Phosphatase 145 units/L (35-129) H 03/21/22 00:09 Total Protein 6.2 g/dL (6.3-8.2) L 03/21/22 00:09 Albumin 2.1 g/dL (3.9-5) L 03/21/22 00:09 Albumin/Globulin Ratio 0.5 % 03/21/22 00:09 Coronavirus (PCR) Negative (Negative) 03/23/22 Unknown Hepatitis A IgM Ab Non-reactive (NonReactive) 03/23/22 11:00 Hep Bs Antigen Non-reactive (Negative) 03/23/22 11:00 Hep B Core IgM Ab Non-reactive (NonReactive) 03/23/22 11:00 Hepatitis C Antibody Non-reactive (NonReactive) 03/23/22 11:00 Blood Type O POSITIVE 03/21/22 05:35 Antibody Screen Negative 03/21/22 05:35 Crossmatch See Detail 03/21/22 05:35 Senior/IV: Voiding Method External Female Catheter Active Medications - Current Medications Current Medications: Generic Name Dose Route Start Last Admin Trade Name Freq PRN Reason Stop Dose Admin Acetaminophen 650 mg 03/21/22 02:28 03/25/22 22:05 Acetaminophen 325 Mg Tab PO 650 mg Q4H PRN Administration Pain MILD(1-3)/Fever >100.5/JOSEPH Albumin Human 12.5 gm 03/21/22 10:58 Albumin Human 25% (12.5 Gm/50 Ml) Inj IV PETRA PRN Hypotension Albuterol 2.5 mg 03/21/22 02:28 Albuterol 2.5 Mg/3 Ml Nebu IH Q3HRT PRN Shortness Of Breath Chlordiazepoxide HCl 25 mg 03/21/22 04:30 03/26/22 06:37 Chlordiazepoxide 25 Mg Cap PO 25 mg Q6HR FABIEN Administration Epoetin Arnulfo-epbx 10,000 unit 03/23/22 13:00 03/23/22 12:15 Epoetin Arnulfo-Epbx 10,000 Unit/1 Ml Vial SUB-Q 10,000 unit PETRA PRN Administration dialysis Famotidine 20 mg 03/21/22 10:00 03/25/22 14:35 Famotidine 20 Mg Tab PO 20 mg QAM FABIEN Administration Fluoxetine HCl 20 mg 03/21/22 10:00 03/25/22 14:35 Fluoxetine 20 Mg Cap PO 20 mg QDAY FABIEN Administration Folic Acid 1 mg 03/21/22 10:00 03/25/22 14:35 Folic Acid 1 Mg Tab PO 1 mg QDAY FABIEN Administration Heparin Sodium (Porcine) 5,000 unit 03/21/22 22:00 03/25/22 21:57 Heparin 5,000 Unit/1 Ml Vial SUB-Q 5,000 unit Q12HR FABIEN Administration Sodium Chloride 100 mls @ 999 mls/hr 03/21/22 10:57 Nacl 0.9% IV PETRA PRN Hypotension Lactulose 20 gm 03/21/22 10:00 03/25/22 14:36 Lactulose 20 Gm/30 Ml Oral Liqd PO 20 gm QDAY FABIEN Administration Midodrine 10 mg 03/21/22 08:00 03/25/22 17:33 Midodrine 10 Mg Tab PO 10 mg TID@0800,1200,1600 FABIEN Administration Morphine Sulfate 4 mg 03/21/22 02:28 Morphine 4 Mg/1 Ml Inj IV Q4H PRN Pain , Severe (7-10) Morphine Sulfate 2 mg 03/21/22 02:28 03/24/22 18:56 Morphine 2 Mg/1 Ml Inj IV 2 mg Q4H PRN Administration Pain, Moderate (4-6) Ondansetron HCl 4 mg 03/21/22 02:28 Ondansetron 4 Mg/2 Ml Inj IV Q8H PRN Nausea And Vomiting Rifaximin 550 mg 03/21/22 10:00 03/25/22 21:57 Rifaximin 550 Mg Tab PO 550 mg BID FABIEN Administration Sodium Bicarbonate 1,300 mg 03/21/22 08:00 03/25/22 17:32 Sodium Bicarbonate 650 Mg Tab PO 1,300 mg TIDWM FABIEN Administration Sodium Chloride 10 ml 03/21/22 10:00 03/25/22 22:15 Sodium Chloride 0.9% 10 Ml Flush Syringe IV 10 ml BID AFBIEN Administration Sodium Chloride 10 ml 03/21/22 02:28 Sodium Chloride 0.9% 10 Ml Flush Syringe IV PRN PRN LINE FLUSH Thiamine HCl 100 mg 03/21/22 10:00 03/25/22 14:35 Thiamine 100 Mg Tab PO 100 mg QDAY FABIEN Administration Trazodone HCl 50 mg 03/21/22 22:00 03/25/22 22:00 Trazodone 50 Mg Tab PO 50 mg QHS FABIEN Administration Nutrition/Malnutrition Assess - Dietary Evaluation Nutrition/Malnutrition Findings: Nutrition Notes Start: 03/22/22 16:46 Freq: Status: Active Protocol: Document 03/22/22 16:46 JOSELUIS (Rec: 03/22/22 17:28 JOSELUIS [id number]) Nutrition Notes Need for Assessment generated from: MD Order,production lead Initial or Follow up Assessment Current Diagnosis CKD (stage V CKD),Hypertension Other Pertinent Diagnosis ESRD+HD, Bilateral-LE & Sacral Ulcers, Anemia, EtOH Abuse, Liver Cancer. Current Diet Renal Diet (since B 03/21), D Suppl (from D 03/22). Labs/Tests 03/22: Na 136, BUN 24, Crea 3. 2, Glu 117, Ca 7.9. Pertinent Medications 03/22: Folic acid, Thiamine, others nutritionally unremarkable. 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 Body weight in chart (200 Kg) is incorrect, I verified with RN over the phone: 103.9 Kg. Weight Status Morbidly Obese Subjective/Other Information RD consult for skin risk, poor PO intake, and dietary supplementation assessments. Pt's PO ijntake of meals has been Poor (25-50%) but well tolerated, according to ADL notes. Pt is on Nasal Cannula, O2 saturation @ 98%, according to Physical Assessment History notes. Pt presents several Sacral and bilateral-LE stage I & II ulcers as signs of concern for skin risk at the time, according to Physical Assessment History notes and Admision Documents. I will prescribe dietary supplementation to support wound healing processes and to compensate for poor or insufficient PO intake of meals during LOS. Percent of energy/protein needs met: Prescribed Renal Diet provides for energy/protein needs (2, 072 Kcal/77 g) during LOS; additionally, Dietary Supplements will compensate for possible poor or insufficient PO intake of meals and support wound healing processes with 1,040 Kcal and 43 g of protein. Burn Absent Trauma Absent GI Symptoms None Food Allergy No Skin Integrity/Comment Bilateral-LE & Sacral Ulcers. 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 As Evidenced by Signs and Symptoms Pt's PO ijntake of meals has been Poor (25-50%) but well tolerated, according to ADL notes. #1 Nutrition Diagnosis Increased nutrient needs ( specify in comment below) Etiology Pt is mostly bedbound, negligence. As Evidenced by Signs and Symptoms Pt presents several Sacral and bilateral-LE stage I & II ulcers as signs of concern for skin risk at the time, according to Physical Assessment History notes and Admision Documents. Is patient on ventilator? No Is Patient Ambulatory and/or Out of Bed No REE-([place]-confined to bed) 2007.548 Kcal/Kg value to use for calculation 16 Approximate Energy Requirements Using 1662 kcal/Kg Calculation Used for Recommendations Kcal/kg Additional Notes Protein: >1.2 g/Kg AdjBW; >98 g/day. Fluids: 1 ml/Kcal, or as per MD. Nutrition Intervention Change Diet Order: Continue Renal Diet. Add Supplement/Snack (indicate name/kcal Start 8 fl oz Nepro w/ /protein ) CARBSTEADY; BID. Start 28.8 g pkt Isidoro; BID. Provides kCal: 1,040 Provides Protein (gm) 43 Goal #1 Support, through dietary supplementation, wound healing processes during LOS. Goal #2 Compensate, through dietary supplementation, for possible poor or insufficient PO intake of meals during LOS. Follow-Up By: 03/29/22 Additional Comments Continue monitoring food tolerance, %PO intake of meals , dietary supplements, and BM.
[2022-03-26] MEDS: MIDODRINE 10 MG TAB PO SCH ×3 (10:26→17:22)
[2022-03-26] MEDS: SODIUM BICARBONATE 650 MG TAB PO SCH ×3 (10:26→17:22)
[2022-03-26] MEDS: FAMOTIDINE 20 MG TAB PO SCH (10:27)
[2022-03-26] MEDS: THIAMINE 100 MG TAB PO SCH (10:27)
[2022-03-26] MEDS: RIFAXIMIN 550 MG TAB PO SCH ×2 (10:27→21:53)
[2022-03-26] MEDS: FLUoxetine 20 MG CAP PO SCH (10:27)
[2022-03-26] MEDS: FOLIC ACID 1 MG TAB PO SCH (10:27)
[2022-03-26] MEDS: LACTULOSE 20 GM/30 ML ORAL LIQD PO SCH (10:27)
[2022-03-26] MEDS: HEPARIN 5,000 UNIT/1 ML VIAL SUB-Q SCH ×2 (10:28→21:54)
--- NOTE | 2022-03-26 11:13 | Progress Note ---
Assessment and Plan - Patient Problems (1) End stage renal disease Current Visit: No Status: Chronic Plan to address problem: Stable on current inpatient TTS HD schedule. (2) Anemia in end-stage renal disease Current Visit: Yes Status: Acute Plan to address problem: Transfuse to maintain Hgb>7.0 (3) Chronic ulcer of leg Current Visit: Yes Status: Acute Qualifiers: Laterality: unspecified laterality Non-pressure ulcer stage: unspecified non-pressure ulcer stage Qualified Code(s): L97.909 - Non-pressure chronic ulcer of unspecified part of unspecified lower leg with unspecified severity (4) Hypotension Current Visit: Yes Status: Acute Plan to address problem: Continue with current midodrine regimen. Subjective Date of service: 03/26/22 Principal diagnosis: ESRD Interval history: Seen this am. No acute complaints. Objective - Vital Signs Vital signs: Vital Signs - 12hr 03/26/22 03/26/22 03/26/22 01:45 03:00 04:49 Temperature 98.5 F Pulse Rate 86 84 Respiratory 18 16 Rate Blood Pressure 100/45 111/58 O2 Sat by Pulse 100 98 97 Oximetry 03/26/22 10:00 Temperature Pulse Rate Respiratory Rate Blood Pressure O2 Sat by Pulse 95 Oximetry - General Appearance General appearance: appears stated age, chronically ill, frail EENT: ATNC Neck: no JVD Respiratory: Present: Clear to Ascultation Cardiology: regular Gastrointestinal: normal Integumentary: warm and dry Neurologic: no focal deficit Musculoskeletal: deferred Psychiatric: cooperative - Lab 03/23/22 05:50 03/23/22 05:50 Most recent lab results Calcium 8.2 mg/dL (8.4-10.2) L 03/23/22 05:50 - Allied health notes Allied health notes reviewed: nursing Medications & Allergies - Medications Allergies/Adverse Reactions: Allergies Penicillins Allergy (Verified 03/16/22 19:11) Rash Home Medications: Home Medications Medication Instructions Recorded Confirmed Last Taken Type Multivitamin Tab [Multiple Vitamin 1 each PO ONCE #30 tablet 04/27/16 03/22/22 Unknown Rx TAB (Theragran)] FLUoxetine [PROzac] 20 mg PO QDAY #30 capsule 03/14/22 03/22/22 Unknown Rx Folic Acid [Folvite] 1 mg PO QDAY #30 tablet 03/14/22 03/22/22 Unknown Rx Lactulose [Cephulac] 20 gm PO QDAY #30 oral.liqd 03/14/22 03/22/22 Unknown Rx Pantoprazole [Protonix TAB] 40 mg PO QDAC #30 tablet 03/14/22 03/22/22 Unknown Rx Rifaximin [Xifaxan] 550 mg PO BID #60 tablet 03/14/22 03/22/22 Unknown Rx Sodium Bicarbonate 1,300 mg PO TID #90 tablet 03/14/22 03/22/22 Unknown Rx Thiamine [Vitamin B-1] 100 mg PO QDAY #30 tablet 03/14/22 03/22/22 Unknown Rx chlordiazePOXIDE [Librium] 25 mg PO Q6H #10 capsule 03/14/22 03/22/22 Unknown Rx traZODone [Desyrel] 50 mg PO QHS #30 tab 03/14/22 03/22/22 Unknown Rx Ferrous Sulfate [Feosol 325 MG tab] 325 mg PO BID #60 tablet 03/24/22 Unknown Rx Midodrine [Proamatine] 10 mg PO TID@0800,1200,1600 #90 03/24/22 Unknown Rx tablet oxyCODONE /ACETAMINOPHEN [Percocet 1 tab PO QHS #7 03/24/22 Unknown Rx 5/325] Active Medications: Generic Name Dose Route Start Last Admin Trade Name Freq PRN Reason Stop Dose Admin Acetaminophen 650 mg 03/21/22 02:28 03/25/22 22:05 Acetaminophen 325 Mg Tab PO 650 mg Q4H PRN Administration Pain MILD(1-3)/Fever >100.5/JOSEPH Albumin Human 12.5 gm 03/21/22 10:58 Albumin Human 25% (12.5 Gm/50 Ml) Inj IV PETRA PRN Hypotension Albuterol 2.5 mg 03/21/22 02:28 Albuterol 2.5 Mg/3 Ml Nebu IH Q3HRT PRN Shortness Of Breath Chlordiazepoxide HCl 25 mg 03/21/22 04:30 03/26/22 06:37 Chlordiazepoxide 25 Mg Cap PO 25 mg Q6HR FABIEN Administration Epoetin Arnulfo-epbx 10,000 unit 03/23/22 13:00 03/23/22 12:15 Epoetin Arnulfo-Epbx 10,000 Unit/1 Ml Vial SUB-Q 10,000 unit PETRA PRN Administration dialysis Famotidine 20 mg 03/21/22 10:00 03/26/22 10:27 Famotidine 20 Mg Tab PO 20 mg QAM FABIEN Administration Fluoxetine HCl 20 mg 03/21/22 10:00 03/26/22 10:27 Fluoxetine 20 Mg Cap PO 20 mg QDAY FABIEN Administration Folic Acid 1 mg 03/21/22 10:00 03/26/22 10:27 Folic Acid 1 Mg Tab PO 1 mg QDAY FABIEN Administration Heparin Sodium (Porcine) 5,000 unit 03/21/22 22:00 03/26/22 10:28 Heparin 5,000 Unit/1 Ml Vial SUB-Q 5,000 unit Q12HR FABIEN Administration Sodium Chloride 100 mls @ 999 mls/hr 03/21/22 10:57 Nacl 0.9% IV PETRA PRN Hypotension Lactulose 20 gm 03/21/22 10:00 03/26/22 10:27 Lactulose 20 Gm/30 Ml Oral Liqd PO 20 gm QDAY FABIEN Administration Midodrine 10 mg 03/21/22 08:00 03/26/22 10:26 Midodrine 10 Mg Tab PO 10 mg TID@0800,1200,1600 FABIEN Administration Morphine Sulfate 4 mg 03/21/22 02:28 Morphine 4 Mg/1 Ml Inj IV Q4H PRN Pain , Severe (7-10) Morphine Sulfate 2 mg 03/21/22 02:28 03/24/22 18:56 Morphine 2 Mg/1 Ml Inj IV 2 mg Q4H PRN Administration Pain, Moderate (4-6) Ondansetron HCl 4 mg 03/21/22 02:28 Ondansetron 4 Mg/2 Ml Inj IV Q8H PRN Nausea And Vomiting Rifaximin 550 mg 03/21/22 10:00 03/26/22 10:27 Rifaximin 550 Mg Tab PO 550 mg BID FABIEN Administration Sodium Bicarbonate 1,300 mg 03/21/22 08:00 03/26/22 10:26 Sodium Bicarbonate 650 Mg Tab PO 1,300 mg TIDWM FABIEN Administration Sodium Chloride 10 ml 03/21/22 10:00 03/26/22 10:27 Sodium Chloride 0.9% 10 Ml Flush Syringe IV 10 ml BID FABIEN Administration Sodium Chloride 10 ml 03/21/22 02:28 Sodium Chloride 0.9% 10 Ml Flush Syringe IV PRN PRN LINE FLUSH Thiamine HCl 100 mg 03/21/22 10:00 03/26/22 10:27 Thiamine 100 Mg Tab PO 100 mg QDAY FABIEN Administration Trazodone HCl 50 mg 03/21/22 22:00 03/25/22 22:00 Trazodone 50 Mg Tab PO 50 mg QHS FABIEN Administration
[2022-03-26] MEDS: ACETAMINOPHEN 325 MG TAB PO PRN (20:09)
[2022-03-26] MEDS: traZODone 50 MG TAB PO SCH (21:54)
[2022-03-27] MEDS: chlordiazePOXIDE 25 MG CAP PO SCH ×5 (00:17→23:58)
[2022-03-27] MEDS: ACETAMINOPHEN 325 MG TAB PO PRN ×2 (05:02→22:31)
[2022-03-27 08:34] LABS: Hematocrit 25.2 % (30.3-42.9); Hemoglobin 8.2 gm/dl (10.1-14.3)
[2022-03-27 09:00] LABS: Calcium 8.1 mg/dL (8.4-10.2)
--- NOTE | 2022-03-27 09:07 | Progress Note ---
Assessment and Plan - Patient Problems (1) End stage renal disease Current Visit: No Status: Chronic Plan to address problem: Stable on current inpatient TTS HD schedule. (2) Anemia in end-stage renal disease Current Visit: Yes Status: Acute Plan to address problem: Transfuse to maintain Hgb>7.0 (3) Chronic ulcer of leg Current Visit: Yes Status: Acute Qualifiers: Laterality: unspecified laterality Non-pressure ulcer stage: unspecified non-pressure ulcer stage Qualified Code(s): L97.909 - Non-pressure chronic ulcer of unspecified part of unspecified lower leg with unspecified severity (4) Hypotension Current Visit: Yes Status: Acute Plan to address problem: Continue with current midodrine regimen. Subjective Date of service: 03/27/22 Principal diagnosis: ESRD Interval history: No acute changes noted overnight. Objective - Vital Signs Vital signs: Vital Signs - 12hr 03/26/22 03/27/22 03/27/22 21:52 03:00 08:28 Temperature 97.8 F Pulse Rate 86 Respiratory 20 Rate Blood Pressure 104/56 O2 Sat by Pulse 100 96 94 Oximetry - General Appearance General appearance: appears stated age, chronically ill EENT: ATNC Neck: no JVD Respiratory: Present: Clear to Ascultation Cardiology: regular Gastrointestinal: distended Integumentary: no rash Musculoskeletal: deferred - Lab 03/27/22 07:14 03/27/22 07:14 Most recent lab results Calcium 8.1 mg/dL (8.4-10.2) L 03/27/22 07:14 Medications & Allergies - Medications Allergies/Adverse Reactions: Allergies Penicillins Allergy (Verified 03/16/22 19:11) Rash Home Medications: Home Medications Medication Instructions Recorded Confirmed Last Taken Type Multivitamin Tab [Multiple Vitamin 1 each PO ONCE #30 tablet 04/27/16 03/22/22 Unknown Rx TAB (Theragran)] FLUoxetine [PROzac] 20 mg PO QDAY #30 capsule 03/14/22 03/22/22 Unknown Rx Folic Acid [Folvite] 1 mg PO QDAY #30 tablet 03/14/22 03/22/22 Unknown Rx Lactulose [Cephulac] 20 gm PO QDAY #30 oral.liqd 03/14/22 03/22/22 Unknown Rx Pantoprazole [Protonix TAB] 40 mg PO QDAC #30 tablet 03/14/22 03/22/22 Unknown Rx Rifaximin [Xifaxan] 550 mg PO BID #60 tablet 03/14/22 03/22/22 Unknown Rx Sodium Bicarbonate 1,300 mg PO TID #90 tablet 03/14/22 03/22/22 Unknown Rx Thiamine [Vitamin B-1] 100 mg PO QDAY #30 tablet 03/14/22 03/22/22 Unknown Rx chlordiazePOXIDE [Librium] 25 mg PO Q6H #10 capsule 03/14/22 03/22/22 Unknown Rx traZODone [Desyrel] 50 mg PO QHS #30 tab 03/14/22 03/22/22 Unknown Rx Ferrous Sulfate [Feosol 325 MG tab] 325 mg PO BID #60 tablet 03/24/22 Unknown Rx Midodrine [Proamatine] 10 mg PO TID@0800,1200,1600 #90 03/24/22 Unknown Rx tablet oxyCODONE /ACETAMINOPHEN [Percocet 1 tab PO QHS #7 03/24/22 Unknown Rx 5/325] Active Medications: Generic Name Dose Route Start Last Admin Trade Name Freq PRN Reason Stop Dose Admin Acetaminophen 650 mg 03/21/22 02:28 03/27/22 05:02 Acetaminophen 325 Mg Tab PO 650 mg Q4H PRN Administration Pain MILD(1-3)/Fever >100.5/JOSEPH Albumin Human 12.5 gm 03/21/22 10:58 Albumin Human 25% (12.5 Gm/50 Ml) Inj IV PETRA PRN Hypotension Albuterol 2.5 mg 03/21/22 02:28 Albuterol 2.5 Mg/3 Ml Nebu IH Q3HRT PRN Shortness Of Breath Chlordiazepoxide HCl 25 mg 03/21/22 04:30 03/27/22 05:02 Chlordiazepoxide 25 Mg Cap PO 25 mg Q6HR FABIEN Administration Epoetin Arnulfo-epbx 10,000 unit 03/23/22 13:00 03/23/22 12:15 Epoetin Arnulfo-Epbx 10,000 Unit/1 Ml Vial SUB-Q 10,000 unit PETRA PRN Administration dialysis Famotidine 20 mg 03/21/22 10:00 03/26/22 10:27 Famotidine 20 Mg Tab PO 20 mg QAM FABIEN Administration Fluoxetine HCl 20 mg 03/21/22 10:00 03/26/22 10:27 Fluoxetine 20 Mg Cap PO 20 mg QDAY FABIEN Administration Folic Acid 1 mg 03/21/22 10:00 03/26/22 10:27 Folic Acid 1 Mg Tab PO 1 mg QDAY FABIEN Administration Heparin Sodium (Porcine) 5,000 unit 03/21/22 22:00 03/26/22 21:54 Heparin 5,000 Unit/1 Ml Vial SUB-Q 5,000 unit Q12HR FABIEN Administration Sodium Chloride 100 mls @ 999 mls/hr 03/21/22 10:57 Nacl 0.9% IV PETRA PRN Hypotension Lactulose 20 gm 03/21/22 10:00 03/26/22 10:27 Lactulose 20 Gm/30 Ml Oral Liqd PO 20 gm QDAY FABIEN Administration Midodrine 10 mg 03/21/22 08:00 03/26/22 17:22 Midodrine 10 Mg Tab PO 10 mg TID@0800,1200,1600 FABIEN Administration Morphine Sulfate 4 mg 03/21/22 02:28 Morphine 4 Mg/1 Ml Inj IV Q4H PRN Pain , Severe (7-10) Morphine Sulfate 2 mg 03/21/22 02:28 03/24/22 18:56 Morphine 2 Mg/1 Ml Inj IV 2 mg Q4H PRN Administration Pain, Moderate (4-6) Ondansetron HCl 4 mg 03/21/22 02:28 Ondansetron 4 Mg/2 Ml Inj IV Q8H PRN Nausea And Vomiting Rifaximin 550 mg 03/21/22 10:00 03/26/22 21:53 Rifaximin 550 Mg Tab PO 550 mg BID FABIEN Administration Sodium Bicarbonate 1,300 mg 03/21/22 08:00 03/26/22 17:22 Sodium Bicarbonate 650 Mg Tab PO 1,300 mg TIDWM FABIEN Administration Sodium Chloride 10 ml 03/21/22 10:00 03/26/22 21:54 Sodium Chloride 0.9% 10 Ml Flush Syringe IV 10 ml BID FABIEN Administration Sodium Chloride 10 ml 03/21/22 02:28 Sodium Chloride 0.9% 10 Ml Flush Syringe IV PRN PRN LINE FLUSH Thiamine HCl 100 mg 03/21/22 10:00 03/26/22 10:27 Thiamine 100 Mg Tab PO 100 mg QDAY FABIEN Administration Trazodone HCl 50 mg 03/21/22 22:00 03/26/22 21:54 Trazodone 50 Mg Tab PO 50 mg QHS FABIEN Administration
[2022-03-27] MEDS: MIDODRINE 10 MG TAB PO SCH ×3 (09:48→18:16)
[2022-03-27] MEDS: SODIUM BICARBONATE 650 MG TAB PO SCH ×3 (09:48→18:16)
[2022-03-27] MEDS: FOLIC ACID 1 MG TAB PO SCH (12:13)
[2022-03-27] MEDS: HEPARIN 5,000 UNIT/1 ML VIAL SUB-Q SCH ×2 (12:13→22:32)
[2022-03-27] MEDS: FLUoxetine 20 MG CAP PO SCH (12:13)
[2022-03-27] MEDS: LACTULOSE 20 GM/30 ML ORAL LIQD PO SCH (12:13)
[2022-03-27] MEDS: FAMOTIDINE 20 MG TAB PO SCH (12:13)
[2022-03-27] MEDS: RIFAXIMIN 550 MG TAB PO SCH ×2 (12:20→22:31)
[2022-03-27] MEDS: THIAMINE 100 MG TAB PO SCH (12:20)
--- NOTE | 2022-03-27 18:57 | Progress Note ---
Assessment and Plan Assessment and plan: - Symptomatic anemia Hb 6.2-6.5-8.4 Patient received total 3 units hemoglobin improved to 8.4 Closely monitor H&H and transfuse additional PRBC --End stage renal disease on HD Patient missed hemodialysis. Nephrology following HD per schedule, blood transfusion during dialysis --Generalized body aches Tylenol 650 mg p.o. every 6 hours as needed. Resume home medication. We will monitor the patient closely and adjust -- Chronic ulcer of leg Is stable. 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 Pepcid 20 mg p.o. twice daily for GI prophylaxis. Patient is a full code -- Full CODE STATUS --DC planning; Per case management and family Daughter Demetria contact number [phone] Closely monitor the patient and adjust the management as needed Follow H&H night and tomorrow morning, follow nephrology recommendations Possible discharge tomorrow if stable and cleared by nephrology Brief history; 51 yo F with history of chronic bilateral lower leg ulcer and ESRD with dialysis on MWF who now present with generalized body aches for the last couple of days. Pt last dialysis was on Sunday so she missed session today. No fever or chills. No other modifying or associated factors. In the emergency room patient is found to have hemoglobin of 6.2 and hematocrit 18.8, she will going to transfuse 1 unit of packed red blood cells also will consult nephrology for hemodialysis, patient was cleared for discharge, does not have resources, does not have chair time at outpatient dialysis center, Patient was discharged, case management caregivers contacted daughter Demetria number of times to come and pick her up, discharge planning per case management. Patient already had discharge orders, case management considering from hospice 03/21; patient's hemoglobin was 6.2 Transfuse 1 unit of PRBC and check H&H\ 03/22; patient's hemoglobin this morning was 6.5 after 1 unit of PRBC transfused 2 additional PRBC closely monitor 03/23; received total 3 units PRBC Hb today 8.5 Possible discharge tomorrow if stable DC planning per case management -Patient received total 3 units PRBC Hb 8.4 03/26; patient awaiting to be picked up by the family Patient has been discharged 2 days Family aware 03/27; patient has been discharged 2 days ago, daughter is not coming and picking her up, ESRD on hemodialysis, no resources Patient is weak and frail, case management home hospice of home hospice Disposition; follow clinically, discharge planning per case management History Interval history: I have seen and examined the patient this morning Patient's chart and medications reviewed patient is complaining of severe weakness Patient is refusing to eat, trying to sleep all the time Refusing to talk Vital signs noted/stable Hospitalist Physical - Constitutional Vitals: Temp Pulse Resp BP Pulse Ox 97.9 F 85 16 102/51 98 03/27/22 11:48 03/27/22 11:48 03/27/22 11:48 03/27/22 11:48 03/27/22 11:48 General appearance: Present: no acute distress, well-nourished, obese, other (Refusing to eat, refusing to talk) - EENT Eyes: Present: PERRL, EOM intact - Neck Neck: Present: supple, normal ROM - Respiratory Respiratory effort: normal Respiratory: bilateral: diminished, negative: rales, rhonchi, wheezing - Cardiovascular Rhythm: regular Heart Sounds: Present: S1 & S2 - Extremities Extremities: no ischemia, No edema - Abdominal General gastrointestinal: soft, non-tender, non-distended, normal bowel sounds - Integumentary Integumentary: Present: clear, warm - Psychiatric Psychiatric: other (Minimally communicative) - Neurologic Neurologic: other (Minimally communicative) Results - Labs CBC & Chem 7: 03/27/22 07:14 03/27/22 07:14 Labs: Laboratory Last Values WBC 4.1 K/mm3 (4.5-11.0) L 03/21/22 10:42 RBC 1.83 M/mm3 (3.65-5.03) L 03/21/22 10:42 Hgb 8.2 gm/dl (10.1-14.3) L 03/27/22 07:14 Hct 25.2 % (30.3-42.9) L 03/27/22 07:14 MCV 103 fl (79-97) H 03/21/22 10:42 MCH 34 pg (28-32) H 03/21/22 10:42 MCHC 33 % (30-34) 03/21/22 10:42 RDW 27.9 % (13.2-15.2) H 03/21/22 10:42 Plt Count 56 K/mm3 (140-440) L 03/21/22 10:42 Baso % (Auto) Cash Posting Representative 03/21/22 00:09 Add Manual Diff Complete 03/21/22 10:42 Total Counted 100 03/21/22 10:42 Seg Neuts % (Manual) 59.0 % (40.0-70.0) 03/21/22 10:42 Band Neutrophils % 0 % 03/21/22 10:42 Lymphocytes % (Manual) 31.0 % (13.4-35.0) 03/21/22 10:42 Reactive Lymphs % (Man) 0 % 03/21/22 10:42 Monocytes % (Manual) 5.0 % (0.0-7.3) 03/21/22 10:42 Eosinophils % (Manual) 3.0 % (0.0-4.3) 03/21/22 10:42 Basophils % (Manual) 2.0 % (0.0-1.8) H 03/21/22 10:42 Metamyelocytes % 0 % 03/21/22 10:42 Myelocytes % 0 % 03/21/22 10:42 Promyelocytes % 0 % 03/21/22 10:42 Blast Cells % 0 % 03/21/22 10:42 Nucleated RBC % Not Reportable 03/21/22 10:42 Seg Neutrophils # Man 2.4 K/mm3 (1.8-7.7) 03/21/22 10:42 Band Neutrophils # 0.0 K/mm3 03/21/22 10:42 Lymphocytes # (Manual) 1.3 K/mm3 (1.2-5.4) 03/21/22 10:42 Abs React Lymphs (Man) 0.0 K/mm3 03/21/22 10:42 Monocytes # (Manual) 0.2 K/mm3 (0.0-0.8) 03/21/22 10:42 Eosinophils # (Manual) 0.1 K/mm3 (0.0-0.4) 03/21/22 10:42 Basophils # (Manual) 0.1 K/mm3 (0.0-0.1) 03/21/22 10:42 Metamyelocytes # 0.0 K/mm3 03/21/22 10:42 Myelocytes # 0.0 K/mm3 03/21/22 10:42 Promyelocytes # 0.0 K/mm3 03/21/22 10:42 Blast Cells # 0.0 K/mm3 03/21/22 10:42 WBC Morphology Not Reportable 03/21/22 10:42 Hypersegmented Neuts Not Reportable 03/21/22 10:42 Hyposegmented Neuts Not Reportable 03/21/22 10:42 Hypogranular Neuts Not Reportable 03/21/22 10:42 Smudge Cells Not Reportable 03/21/22 10:42 Toxic Granulation Not Reportable 03/21/22 10:42 Toxic Vacuolation Not Reportable 03/21/22 10:42 Dohle Bodies Not Reportable 03/21/22 10:42 Pelger-Huet Anomaly Not Reportable 03/21/22 10:42 Kevin Rods Not Reportable 03/21/22 10:42 Platelet Estimate Consistent w auto 03/21/22 10:42 Clumped Platelets Not Reportable 03/21/22 10:42 Plt Clumps, EDTA Not Reportable 03/21/22 10:42 Large Platelets Not Reportable 03/21/22 10:42 Giant Platelets Not Reportable 03/21/22 10:42 Platelet Satelliting Not Reportable 03/21/22 10:42 Plt Morphology Comment Not Reportable 03/21/22 10:42 RBC Morphology Not Reportable 03/21/22 10:42 Dimorphic RBCs Not Reportable 03/21/22 10:42 Polychromasia Not Reportable 03/21/22 10:42 Hypochromasia 1+ 03/21/22 10:42 Poikilocytosis Few 03/21/22 10:42 Anisocytosis 2+ 03/21/22 10:42 Microcytosis Not Reportable 03/21/22 10:42 Macrocytosis 1+ 03/21/22 10:42 Spherocytes Not Reportable 03/21/22 10:42 Pappenheimer Bodies Not Reportable 03/21/22 10:42 Sickle Cells Not Reportable 03/21/22 10:42 Target Cells Not Reportable 03/21/22 10:42 Tear Drop Cells Not Reportable 03/21/22 10:42 Ovalocytes Not Reportable 03/21/22 10:42 Stomatocytes Rare 03/21/22 10:42 Helmet Cells Not Reportable 03/21/22 10:42 [place] Bodies Not Reportable 03/21/22 10:42 [place] Rings Not Reportable 03/21/22 10:42 [place] Cells Not Reportable 03/21/22 10:42 Bite Cells Not Reportable 03/21/22 10:42 Crenated Cell Not Reportable 03/21/22 10:42 Elliptocytes Not Reportable 03/21/22 10:42 Acanthocytes (Spur) Rare 03/21/22 10:42 Rouleaux Not Reportable 03/21/22 10:42 Hemoglobin C Crystals Not Reportable 03/21/22 10:42 Schistocytes Not Reportable 03/21/22 10:42 Malaria parasites Not Reportable 03/21/22 10:42 [place] Bodies Not Reportable 03/21/22 10:42 Hem Pathologist Commnt No 03/21/22 10:42 Sodium 135 mmol/L (137-145) L 03/27/22 07:14 Potassium 3.6 mmol/L (3.6-5.0) 03/27/22 07:14 Chloride 96.6 mmol/L (98-107) L 03/27/22 07:14 Carbon Dioxide 29 mmol/L (22-30) 03/27/22 07:14 Anion Gap 13 mmol/L 03/27/22 07:14 BUN 36 mg/dL (7-17) H 03/27/22 07:14 Creatinine 4.1 mg/dL (0.6-1.2) H 03/27/22 07:14 Estimated GFR 11 ml/min 03/27/22 07:14 BUN/Creatinine Ratio 9 % 03/27/22 07:14 Glucose 101 mg/dL (65-100) H 03/27/22 07:14 Lactic Acid 1.40 mmol/L (0.7-2.0) 03/21/22 00:09 Calcium 8.1 mg/dL (8.4-10.2) L 03/27/22 07:14 Total Bilirubin 2.40 mg/dL (0.1-1.2) H 03/21/22 00:09 AST 63 units/L (5-40) H 03/21/22 00:09 ALT 28 units/L (7-56) 03/21/22 00:09 Alkaline Phosphatase 145 units/L (35-129) H 03/21/22 00:09 Total Protein 6.2 g/dL (6.3-8.2) L 03/21/22 00:09 Albumin 2.1 g/dL (3.9-5) L 03/21/22 00:09 Albumin/Globulin Ratio 0.5 % 03/21/22 00:09 Coronavirus (PCR) Negative (Negative) 03/23/22 Unknown Hepatitis A IgM Ab Non-reactive (NonReactive) 03/23/22 11:00 Hep Bs Antigen Non-reactive (Negative) 03/23/22 11:00 Hep B Core IgM Ab Non-reactive (NonReactive) 03/23/22 11:00 Hepatitis C Antibody Non-reactive (NonReactive) 03/23/22 11:00 Blood Type O POSITIVE 03/21/22 05:35 Antibody Screen Negative 03/21/22 05:35 Crossmatch See Detail 03/21/22 05:35 Microbiology: Microbiology 03/22/22 21:20 Stool Stool Occult Blood (THALIA) - Final Senior/IV: Voiding Method Incontinent Active Medications - Current Medications Current Medications: Generic Name Dose Route Start Last Admin Trade Name Freq PRN Reason Stop Dose Admin Acetaminophen 650 mg 03/21/22 02:28 03/27/22 05:02 Acetaminophen 325 Mg Tab PO 650 mg Q4H PRN Administration Pain MILD(1-3)/Fever >100.5/JOSEPH Albumin Human 12.5 gm 03/21/22 10:58 Albumin Human 25% (12.5 Gm/50 Ml) Inj IV PETRA PRN Hypotension Albuterol 2.5 mg 03/21/22 02:28 Albuterol 2.5 Mg/3 Ml Nebu IH Q3HRT PRN Shortness Of Breath Chlordiazepoxide HCl 25 mg 03/21/22 04:30 03/27/22 18:16 Chlordiazepoxide 25 Mg Cap PO 25 mg Q6HR FABIEN Administration Epoetin Arnulfo-epbx 10,000 unit 03/23/22 13:00 03/23/22 12:15 Epoetin Arnulfo-Epbx 10,000 Unit/1 Ml Vial SUB-Q 10,000 unit PETRA PRN Administration dialysis Famotidine 20 mg 03/21/22 10:00 03/27/22 12:13 Famotidine 20 Mg Tab PO 20 mg QAM FABIEN Administration Fluoxetine HCl 20 mg 03/21/22 10:00 03/27/22 12:13 Fluoxetine 20 Mg Cap PO 20 mg QDAY FABIEN Administration Folic Acid 1 mg 03/21/22 10:00 03/27/22 12:13 Folic Acid 1 Mg Tab PO 1 mg QDAY FABIEN Administration Heparin Sodium (Porcine) 5,000 unit 03/21/22 22:00 03/27/22 12:13 Heparin 5,000 Unit/1 Ml Vial SUB-Q 5,000 unit Q12HR FABIEN Administration Sodium Chloride 100 mls @ 999 mls/hr 03/21/22 10:57 Nacl 0.9% IV PETRA PRN Hypotension Lactulose 20 gm 03/21/22 10:00 03/27/22 12:13 Lactulose 20 Gm/30 Ml Oral Liqd PO 20 gm QDAY FABIEN Administration Midodrine 10 mg 03/21/22 08:00 03/27/22 18:16 Midodrine 10 Mg Tab PO 10 mg TID@0800,1200,1600 FABIEN Administration Morphine Sulfate 4 mg 03/21/22 02:28 Morphine 4 Mg/1 Ml Inj IV Q4H PRN Pain , Severe (7-10) Morphine Sulfate 2 mg 03/21/22 02:28 03/24/22 18:56 Morphine 2 Mg/1 Ml Inj IV 2 mg Q4H PRN Administration Pain, Moderate (4-6) Ondansetron HCl 4 mg 03/21/22 02:28 Ondansetron 4 Mg/2 Ml Inj IV Q8H PRN Nausea And Vomiting Rifaximin 550 mg 03/21/22 10:00 03/27/22 12:20 Rifaximin 550 Mg Tab PO 550 mg BID FABIEN Administration Sodium Bicarbonate 1,300 mg 03/21/22 08:00 03/27/22 18:16 Sodium Bicarbonate 650 Mg Tab PO 1,300 mg TIDWM FABIEN Administration Sodium Chloride 10 ml 03/21/22 10:00 03/27/22 12:14 Sodium Chloride 0.9% 10 Ml Flush Syringe IV 10 ml BID FABIEN Administration Sodium Chloride 10 ml 03/21/22 02:28 Sodium Chloride 0.9% 10 Ml Flush Syringe IV PRN PRN LINE FLUSH Thiamine HCl 100 mg 03/21/22 10:00 03/27/22 12:20 Thiamine 100 Mg Tab PO 100 mg QDAY FABIEN Administration Trazodone HCl 50 mg 03/21/22 22:00 03/26/22 21:54 Trazodone 50 Mg Tab PO 50 mg QHS FABIEN Administration Nutrition/Malnutrition Assess - Dietary Evaluation Nutrition/Malnutrition Findings: Nutrition Notes Start: 03/22/22 16:46 Freq: Status: Active Protocol: Document 03/22/22 16:46 JOSELUIS (Rec: 03/22/22 17:28 [email or web address] [id number]) Nutrition Notes Need for Assessment generated from: MD Order,quality specialist Initial or Follow up Assessment Current Diagnosis CKD (stage V CKD),Hypertension Other Pertinent Diagnosis ESRD+HD, Bilateral-LE & Sacral Ulcers, Anemia, EtOH Abuse, Liver Cancer. Current Diet Renal Diet (since B 03/21), D Suppl (from D 03/22). Labs/Tests 03/22: Na 136, BUN 24, Crea 3. 2, Glu 117, Ca 7.9. Pertinent Medications 03/22: Folic acid, Thiamine, others nutritionally unremarkable. 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 Body weight in chart (200 Kg) is incorrect, I verified with RN over the phone: 103.9 Kg. Weight Status Morbidly Obese Subjective/Other Information RD consult for skin risk, poor PO intake, and dietary supplementation assessments. Pt's PO ijntake of meals has been Poor (25-50%) but well tolerated, according to ADL notes. Pt is on Nasal Cannula, O2 saturation @ 98%, according to Physical Assessment History notes. Pt presents several Sacral and bilateral-LE stage I & II ulcers as signs of concern for skin risk at the time, according to Physical Assessment History notes and Admision Documents. I will prescribe dietary supplementation to support wound healing processes and to compensate for poor or insufficient PO intake of meals during LOS. Percent of energy/protein needs met: Prescribed Renal Diet provides for energy/protein needs (2, 072 Kcal/77 g) during LOS; additionally, Dietary Supplements will compensate for possible poor or insufficient PO intake of meals and support wound healing processes with 1,040 Kcal and 43 g of protein. Burn Absent Trauma Absent GI Symptoms None Food Allergy No Skin Integrity/Comment Bilateral-LE & Sacral Ulcers. Current % PO Poor (25-49%) Minimum of two criteria No Fluid Accumulation N/A Reduced Spine Surgeon Strength N/A (non-severe) Protein-Calorie Malnutrition N\A #2 Nutrition Diagnosis Predicted suboptimal energy intake Etiology Possibly associated with EtOH Abuse. As Evidenced by Signs and Symptoms Pt's PO ijntake of meals has been Poor (25-50%) but well tolerated, according to ADL notes. #1 Nutrition Diagnosis Increased nutrient needs ( specify in comment below) Etiology Pt is mostly bedbound, negligence. As Evidenced by Signs and Symptoms Pt presents several Sacral and bilateral-LE stage I & II ulcers as signs of concern for skin risk at the time, according to Physical Assessment History notes and Admision Documents. Is patient on ventilator? No Is Patient Ambulatory and/or Out of Bed No REE-([facility]-confined to bed) 2007.548 Kcal/Kg value to use for calculation 16 Approximate Energy Requirements Using 1662 kcal/Kg Calculation Used for Recommendations Kcal/kg Additional Notes Protein: >1.2 g/Kg AdjBW; >98 g/day. Fluids: 1 ml/Kcal, or as per MD. Nutrition Intervention Change Diet Order: Continue Renal Diet. Add Supplement/Snack (indicate name/kcal Start 8 fl oz Nepro w/ /protein ) CARBSTEADY; BID. Start 28.8 g pkt Isidoro; BID. Provides kCal: 1,040 Provides Protein (gm) 43 Goal #1 Support, through dietary supplementation, wound healing processes during LOS. Goal #2 Compensate, through dietary supplementation, for possible poor or insufficient PO intake of meals during LOS. Follow-Up By: 03/29/22 Additional Comments Continue monitoring food tolerance, %PO intake of meals , dietary supplements, and BM.
[2022-03-27] MEDS: traZODone 50 MG TAB PO SCH (22:31)
[2022-03-28] MEDS: chlordiazePOXIDE 25 MG CAP PO SCH ×3 (05:29→18:28)
[2022-03-28] MEDS: MIDODRINE 10 MG TAB PO SCH ×3 (08:42→18:28)
[2022-03-28] MEDS: SODIUM BICARBONATE 650 MG TAB PO SCH ×3 (08:42→18:28)
[2022-03-28] MEDS: HEPARIN 5,000 UNIT/1 ML VIAL SUB-Q SCH ×2 (09:08→21:01)
--- NOTE | 2022-03-28 09:15 | Progress Note ---
Assessment and Plan - Patient Problems (1) End stage renal disease Current Visit: No Status: Chronic Plan to address problem: Stable on current inpatient TTS HD schedule. (2) Anemia in end-stage renal disease Current Visit: Yes Status: Acute Plan to address problem: Transfuse to maintain Hgb>7.0 (3) Chronic ulcer of leg Current Visit: Yes Status: Acute Qualifiers: Laterality: unspecified laterality Non-pressure ulcer stage: unspecified non-pressure ulcer stage Qualified Code(s): L97.909 - Non-pressure chronic ulcer of unspecified part of unspecified lower leg with unspecified severity (4) Hypotension Current Visit: Yes Status: Acute Plan to address problem: Continue with current midodrine regimen. Subjective Date of service: 03/28/22 Principal diagnosis: ESRD Interval history: No acute issues this am. Plan for HD today. Objective - Vital Signs Vital signs: Vital Signs - 12hr 03/28/22 03/28/22 03:00 05:29 Temperature 97.5 F L Pulse Rate 82 Respiratory 18 Rate Blood Pressure 110/57 [Left] O2 Sat by Pulse 95 95 Oximetry - General Appearance General appearance: chronically ill, frail EENT: ATNC Neck: no JVD Respiratory: Present: Decreased Breath Sounds Cardiology: regular Gastrointestinal: distended Integumentary: warm and dry Neurologic: no asterixis Musculoskeletal: deferred - Lab 03/27/22 07:14 03/27/22 07:14 Most recent lab results Calcium 8.1 mg/dL (8.4-10.2) L 03/27/22 07:14 - Allied health notes Allied health notes reviewed: nursing Medications & Allergies - Medications Allergies/Adverse Reactions: Allergies Penicillins Allergy (Verified 03/16/22 19:11) Rash Home Medications: Home Medications Medication Instructions Recorded Confirmed Last Taken Type Multivitamin Tab [Multiple Vitamin 1 each PO ONCE #30 tablet 04/27/16 03/22/22 Unknown Rx TAB (Theragran)] FLUoxetine [PROzac] 20 mg PO QDAY #30 capsule 03/14/22 03/22/22 Unknown Rx Folic Acid [Folvite] 1 mg PO QDAY #30 tablet 03/14/22 03/22/22 Unknown Rx Lactulose [Cephulac] 20 gm PO QDAY #30 oral.liqd 03/14/22 03/22/22 Unknown Rx Pantoprazole [Protonix TAB] 40 mg PO QDAC #30 tablet 03/14/22 03/22/22 Unknown Rx Rifaximin [Xifaxan] 550 mg PO BID #60 tablet 03/14/22 03/22/22 Unknown Rx Sodium Bicarbonate 1,300 mg PO TID #90 tablet 03/14/22 03/22/22 Unknown Rx Thiamine [Vitamin B-1] 100 mg PO QDAY #30 tablet 03/14/22 03/22/22 Unknown Rx chlordiazePOXIDE [Librium] 25 mg PO Q6H #10 capsule 03/14/22 03/22/22 Unknown Rx traZODone [Desyrel] 50 mg PO QHS #30 tab 03/14/22 03/22/22 Unknown Rx Ferrous Sulfate [Feosol 325 MG tab] 325 mg PO BID #60 tablet 03/24/22 Unknown Rx Midodrine [Proamatine] 10 mg PO TID@0800,1200,1600 #90 03/24/22 Unknown Rx tablet oxyCODONE /ACETAMINOPHEN [Percocet 1 tab PO QHS #7 03/24/22 Unknown Rx 5/325] Active Medications: Generic Name Dose Route Start Last Admin Trade Name Freq PRN Reason Stop Dose Admin Acetaminophen 650 mg 03/21/22 02:28 03/27/22 22:31 Acetaminophen 325 Mg Tab PO 650 mg Q4H PRN Administration Pain MILD(1-3)/Fever >100.5/JOSEPH Albumin Human 12.5 gm 03/21/22 10:58 Albumin Human 25% (12.5 Gm/50 Ml) Inj IV PETRA PRN Hypotension Albuterol 2.5 mg 03/21/22 02:28 Albuterol 2.5 Mg/3 Ml Nebu IH Q3HRT PRN Shortness Of Breath Chlordiazepoxide HCl 25 mg 03/21/22 04:30 03/28/22 05:29 Chlordiazepoxide 25 Mg Cap PO 25 mg Q6HR FABIEN Administration Epoetin Arnulfo-epbx 10,000 unit 03/23/22 13:00 03/23/22 12:15 Epoetin Arnulfo-Epbx 10,000 Unit/1 Ml Vial SUB-Q 10,000 unit PETRA PRN Administration dialysis Famotidine 20 mg 03/21/22 10:00 03/27/22 12:13 Famotidine 20 Mg Tab PO 20 mg QAM FABIEN Administration Fluoxetine HCl 20 mg 03/21/22 10:00 03/27/22 12:13 Fluoxetine 20 Mg Cap PO 20 mg QDAY FABIEN Administration Folic Acid 1 mg 03/21/22 10:00 03/27/22 12:13 Folic Acid 1 Mg Tab PO 1 mg QDAY FABIEN Administration Heparin Sodium (Porcine) 5,000 unit 03/21/22 22:00 03/27/22 22:32 Heparin 5,000 Unit/1 Ml Vial SUB-Q 5,000 unit Q12HR FABIEN Administration Sodium Chloride 100 mls @ 999 mls/hr 03/21/22 10:57 Nacl 0.9% IV PETRA PRN Hypotension Lactulose 20 gm 03/21/22 10:00 03/27/22 12:13 Lactulose 20 Gm/30 Ml Oral Liqd PO 20 gm QDAY FABIEN Administration Midodrine 10 mg 03/21/22 08:00 03/28/22 08:42 Midodrine 10 Mg Tab PO Not Given TID@0800,1200,1600 [facility] Morphine Sulfate 4 mg 03/21/22 02:28 Morphine 4 Mg/1 Ml Inj IV Q4H PRN Pain , Severe (7-10) Morphine Sulfate 2 mg 03/21/22 02:28 03/24/22 18:56 Morphine 2 Mg/1 Ml Inj IV 2 mg Q4H PRN Administration Pain, Moderate (4-6) Ondansetron HCl 4 mg 03/21/22 02:28 Ondansetron 4 Mg/2 Ml Inj IV Q8H PRN Nausea And Vomiting Rifaximin 550 mg 03/21/22 10:00 03/27/22 22:31 Rifaximin 550 Mg Tab PO 550 mg BID FABIEN Administration Sodium Bicarbonate 1,300 mg 03/21/22 08:00 03/28/22 08:42 Sodium Bicarbonate 650 Mg Tab PO Not Given TIDWM FABIEN Sodium Chloride 10 ml 03/21/22 10:00 03/27/22 22:32 Sodium Chloride 0.9% 10 Ml Flush Syringe IV 10 ml BID FABIEN Administration Sodium Chloride 10 ml 03/21/22 02:28 Sodium Chloride 0.9% 10 Ml Flush Syringe IV PRN PRN LINE FLUSH Thiamine HCl 100 mg 03/21/22 10:00 03/27/22 12:20 Thiamine 100 Mg Tab PO 100 mg QDAY FABIEN Administration Trazodone HCl 50 mg 03/21/22 22:00 03/27/22 22:31 Trazodone 50 Mg Tab PO 50 mg QHS FABIEN Administration
--- NOTE | 2022-03-28 12:54 | Progress Note ---
Assessment and Plan Brief history; 51 yo F with history of chronic bilateral lower leg ulcer and ESRD with dialysis on MWF who now present with generalized body aches for the last couple of days. Pt last dialysis was on Sunday so she missed session today. No fever or chills. No other modifying or associated factors. In the emergency room patient is found to have hemoglobin of 6.2 and hematocrit 18.8, she will going to transfuse 1 unit of packed red blood cells also will consult nephrology for hemodialysis, patient was cleared for discharge, does not have resources, does not have chair time at outpatient dialysis center, Patient was discharged, case management caregivers contacted daughter Demetria number of times to come and pick her up, discharge planning per case management. Patient already had discharge orders, case management considering from hospice 03/21; patient's hemoglobin was 6.2 Transfuse 1 unit of PRBC and check H&H\ 03/22; patient's hemoglobin this morning was 6.5 after 1 unit of PRBC transfused 2 additional PRBC closely monitor 03/23; received total 3 units PRBC Hb today 8.5 Possible discharge tomorrow if stable DC planning per case management -Patient received total 3 units PRBC Hb 8.4 03/26; patient awaiting to be picked up by the family Patient has been discharged 2 days Family aware 03/27; patient has been discharged 2 days ago, daughter is not coming and picking her up, ESRD on hemodialysis, no resources Patient is weak and frail, case management working on outpatient dialysis set up and placement 03/28: Pending outpatient dialysis set up and placement. Daughter not coming to mushroom picker the patient. Patient also on does not have insurance and outpatient dialysis set up. Continue supportive care. Disposition; follow clinically, discharge planning per case management Assessment and plan: - Symptomatic anemia Hb 6.2-6.5-8.4 Patient received total 3 units hemoglobin improved to 8.4 Closely monitor H&H and transfuse additional PRBC --End stage renal disease on HD Patient missed hemodialysis. Nephrology following HD per schedule, blood transfusion during dialysis --Generalized body aches Tylenol 650 mg p.o. every 6 hours as needed. Resume home medication. We will monitor the patient closely and adjust -- Chronic ulcer of leg Is stable. 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 Pepcid 20 mg p.o. twice daily for GI prophylaxis. Patient is a full code -- Full CODE STATUS --DC planning; Per case management and family Daughter Demetria contact number [phone] Closely monitor the patient and adjust the management as needed Pending placement Subjective Date of service: 03/28/22 Principal diagnosis: ESRD Interval history: Patient seen and examined. Medical records and medication list reviewed. No acute event overnight noted by the RN. Patient getting hemodialysis as scheduled Pending outpatient dialysis set up and placement Objective - Exam Narrative Exam: GENERAL: White female appears way older than her stated age, lying on bed appeared to be in no discomfort. HEENT: Normocephalic. Atraumatic. No conjunctival congestion or icterus. Patient has moist mucous membranes. NECK: Supple. Trachea midline. CHEST/LUNGS: Clear to auscultated bilaterally, breathing nonlabored. No wheezes crackles or rhonchi. HEART/CARDIOVASCULAR: Regular in rate and rhythm. S1 and S2 positive. ABDOMEN: Abdomen is soft, nontender. Patient has normal bowel sounds. SKIN: There is no rash. Warm and dry. NEURO: No focal motor deficit. Follows command. MUSCULOSKELETAL: No joint effusion or tenderness. EXTRIMITY: No edema, no cyanosis or clubbing. PSYCH: Cooperative. - Constitutional Vitals: Vital Signs - 12hr 03/28/22 03/28/22 03:00 05:29 Temperature 97.5 F L Pulse Rate 82 Respiratory 18 Rate Blood Pressure 110/57 [Left] O2 Sat by Pulse 95 95 Oximetry - Labs CBC & Chem 7: 03/27/22 07:14 03/29/22 10:58
[2022-03-28] MEDS: LACTULOSE 20 GM/30 ML ORAL LIQD PO SCH (13:08)
[2022-03-28] MEDS: FOLIC ACID 1 MG TAB PO SCH (13:09)
[2022-03-28] MEDS: FLUoxetine 20 MG CAP PO SCH (13:10)
[2022-03-28] MEDS: FAMOTIDINE 20 MG TAB PO SCH (13:10)
[2022-03-28] MEDS: THIAMINE 100 MG TAB PO SCH (13:11)
[2022-03-28] MEDS: RIFAXIMIN 550 MG TAB PO SCH ×2 (13:11→21:02)
[2022-03-28] MEDS ORDERED: ALBUMIN HUMAN 25% (25 GM/100 ML) INJ IV PRN (16:29)
[2022-03-28] MEDS ORDERED: SODIUM CHLORIDE 0.9% 100 ML IV PRN (16:29)
[2022-03-28] MEDS: traZODone 50 MG TAB PO SCH (21:03)
[2022-03-29] MEDS: chlordiazePOXIDE 25 MG CAP PO SCH ×5 (00:52→23:01)
[2022-03-29] MEDS: ACETAMINOPHEN 325 MG TAB PO PRN (05:22)
[2022-03-29] MEDS: SODIUM BICARBONATE 650 MG TAB PO SCH ×3 (09:25→18:10)
[2022-03-29] MEDS: LACTULOSE 20 GM/30 ML ORAL LIQD PO SCH (09:25)
[2022-03-29] MEDS: FOLIC ACID 1 MG TAB PO SCH (09:26)
[2022-03-29] MEDS: RIFAXIMIN 550 MG TAB PO SCH ×2 (09:26→22:56)
[2022-03-29] MEDS: HEPARIN 5,000 UNIT/1 ML VIAL SUB-Q SCH ×2 (09:26→22:56)
[2022-03-29] MEDS: THIAMINE 100 MG TAB PO SCH (09:26)
[2022-03-29] MEDS: FAMOTIDINE 20 MG TAB PO SCH (09:26)
[2022-03-29] MEDS: MIDODRINE 10 MG TAB PO SCH ×3 (09:26→18:10)
[2022-03-29] MEDS: FLUoxetine 20 MG CAP PO SCH (09:26)
--- NOTE | 2022-03-29 09:30 | Progress Note ---
Assessment and Plan - Patient Problems (1) End stage renal disease Current Visit: No Status: Chronic Plan to address problem: Continue on current inpatient TTS HD schedule. (2) Anemia in end-stage renal disease Current Visit: Yes Status: Acute Plan to address problem: Transfuse to maintain Hgb>7.0 (3) Chronic ulcer of leg Current Visit: Yes Status: Acute Qualifiers: Laterality: unspecified laterality Non-pressure ulcer stage: unspecified non-pressure ulcer stage Qualified Code(s): L97.909 - Non-pressure chronic ulcer of unspecified part of unspecified lower leg with unspecified severity (4) Hypotension Current Visit: Yes Status: Acute Plan to address problem: Continue with current midodrine regimen. Subjective Date of service: 03/29/22 Principal diagnosis: ESRD Interval history: No acute changes overnight. Objective - Vital Signs Vital signs: Vital Signs - 12hr 03/28/22 03/29/22 03/29/22 22:00 01:35 04:49 Temperature 98.5 F Pulse Rate 90 Respiratory 20 Rate Blood Pressure 97/46 Blood Pressure [Left] O2 Sat by Pulse 93 96 95 Oximetry 03/29/22 03/29/22 09:23 09:25 Temperature 97.0 F L Pulse Rate 96 H Respiratory 20 Rate Blood Pressure Blood Pressure 86/45 91/44 [Left] O2 Sat by Pulse 99 Oximetry - General Appearance General appearance: chronically ill, frail EENT: ATNC Neck: no JVD Respiratory: Present: Clear to Ascultation Cardiology: regular Gastrointestinal: distended Integumentary: no rash Neurologic: no asterixis Musculoskeletal: deferred - Lab 03/27/22 07:14 03/27/22 07:14 Most recent lab results Calcium 8.1 mg/dL (8.4-10.2) L 03/27/22 07:14 - Allied health notes Allied health notes reviewed: nursing Medications & Allergies - Medications Allergies/Adverse Reactions: Allergies Penicillins Allergy (Verified 03/16/22 19:11) Rash Home Medications: Home Medications Medication Instructions Recorded Confirmed Last Taken Type Multivitamin Tab [Multiple Vitamin 1 each PO ONCE #30 tablet 04/27/16 03/22/22 Unknown Rx TAB (Theragran)] FLUoxetine [PROzac] 20 mg PO QDAY #30 capsule 03/14/22 03/22/22 Unknown Rx Folic Acid [Folvite] 1 mg PO QDAY #30 tablet 03/14/22 03/22/22 Unknown Rx Lactulose [Cephulac] 20 gm PO QDAY #30 oral.liqd 03/14/22 03/22/22 Unknown Rx Pantoprazole [Protonix TAB] 40 mg PO QDAC #30 tablet 03/14/22 03/22/22 Unknown Rx Rifaximin [Xifaxan] 550 mg PO BID #60 tablet 03/14/22 03/22/22 Unknown Rx Sodium Bicarbonate 1,300 mg PO TID #90 tablet 03/14/22 03/22/22 Unknown Rx Thiamine [Vitamin B-1] 100 mg PO QDAY #30 tablet 03/14/22 03/22/22 Unknown Rx chlordiazePOXIDE [Librium] 25 mg PO Q6H #10 capsule 03/14/22 03/22/22 Unknown Rx traZODone [Desyrel] 50 mg PO QHS #30 tab 03/14/22 03/22/22 Unknown Rx Ferrous Sulfate [Feosol 325 MG tab] 325 mg PO BID #60 tablet 03/24/22 Unknown Rx Midodrine [Proamatine] 10 mg PO TID@0800,1200,1600 #90 03/24/22 Unknown Rx tablet oxyCODONE /ACETAMINOPHEN [Percocet 1 tab PO QHS #7 03/24/22 Unknown Rx 5/325] Active Medications: Generic Name Dose Route Start Last Admin Trade Name Freq PRN Reason Stop Dose Admin Acetaminophen 650 mg 03/21/22 02:28 03/29/22 05:22 Acetaminophen 325 Mg Tab PO 650 mg Q4H PRN Administration Pain MILD(1-3)/Fever >100.5/JOSEPH Albumin Human 12.5 gm 03/21/22 10:58 Albumin Human 25% (12.5 Gm/50 Ml) Inj IV PETRA PRN Hypotension Albumin Human 25 gm 03/28/22 16:29 Albumin Human 25% (25 Gm/100 Ml) Inj IV PETRA PRN Hypotension Albuterol 2.5 mg 03/21/22 02:28 Albuterol 2.5 Mg/3 Ml Nebu IH Q3HRT PRN Shortness Of Breath Chlordiazepoxide HCl 25 mg 03/21/22 04:30 03/29/22 05:22 Chlordiazepoxide 25 Mg Cap PO 25 mg Q6HR FABIEN Administration Epoetin Arnulfo-epbx 10,000 unit 03/23/22 13:00 03/23/22 12:15 Epoetin Arnulfo-Epbx 10,000 Unit/1 Ml Vial SUB-Q 10,000 unit PETRA PRN Administration dialysis Famotidine 20 mg 03/21/22 10:00 03/28/22 13:10 Famotidine 20 Mg Tab PO Not Given QAM FABIEN Fluoxetine HCl 20 mg 03/21/22 10:00 03/28/22 13:10 Fluoxetine 20 Mg Cap PO Not Given QDAY FABIEN Folic Acid 1 mg 03/21/22 10:00 03/28/22 13:09 Folic Acid 1 Mg Tab PO Not Given QDAY FABIEN Heparin Sodium (Porcine) 5,000 unit 03/21/22 22:00 03/28/22 21:01 Heparin 5,000 Unit/1 Ml Vial SUB-Q 5,000 unit Q12HR FABIEN Administration Sodium Chloride 100 mls @ 999 mls/hr 03/28/22 16:29 Nacl 0.9% IV PETRA PRN Hypotension Lactulose 20 gm 03/21/22 10:00 03/28/22 13:08 Lactulose 20 Gm/30 Ml Oral Liqd PO Not Given QDAY FABIEN Midodrine 10 mg 03/21/22 08:00 03/28/22 18:28 Midodrine 10 Mg Tab PO 10 mg TID@0800,1200,1600 FABIEN Administration Morphine Sulfate 4 mg 03/21/22 02:28 Morphine 4 Mg/1 Ml Inj IV Q4H PRN Pain , Severe (7-10) Morphine Sulfate 2 mg 03/21/22 02:28 03/24/22 18:56 Morphine 2 Mg/1 Ml Inj IV 2 mg Q4H PRN Administration Pain, Moderate (4-6) Ondansetron HCl 4 mg 03/21/22 02:28 Ondansetron 4 Mg/2 Ml Inj IV Q8H PRN Nausea And Vomiting Rifaximin 550 mg 03/21/22 10:00 03/28/22 21:02 Rifaximin 550 Mg Tab PO 550 mg BID FABIEN Administration Sodium Bicarbonate 1,300 mg 03/21/22 08:00 03/28/22 18:28 Sodium Bicarbonate 650 Mg Tab PO 1,300 mg TIDWM FABIEN Administration Sodium Chloride 10 ml 03/21/22 10:00 03/28/22 21:02 Sodium Chloride 0.9% 10 Ml Flush Syringe IV 10 ml BID FABIEN Administration Sodium Chloride 10 ml 03/21/22 02:28 Sodium Chloride 0.9% 10 Ml Flush Syringe IV PRN PRN LINE FLUSH Thiamine HCl 100 mg 03/21/22 10:00 03/28/22 13:11 Thiamine 100 Mg Tab PO Not Given QDAY FABIEN Trazodone HCl 50 mg 03/21/22 22:00 03/28/22 21:03 Trazodone 50 Mg Tab PO 50 mg QHS FABIEN Administration
[2022-03-29 11:37] LABS: Calcium 8.1 mg/dL (8.4-10.2)
--- NOTE | 2022-03-29 16:29 | Progress Note ---
Assessment and Plan Brief history; 51 yo F with history of chronic bilateral lower leg ulcer and ESRD with dialysis on MWF who now present with generalized body aches for the last couple of days. Pt last dialysis was on Sunday so she missed session today. No fever or chills. No other modifying or associated factors. In the emergency room patient is found to have hemoglobin of 6.2 and hematocrit 18.8, she will going to transfuse 1 unit of packed red blood cells also will consult nephrology for hemodialysis, patient was cleared for discharge, does not have resources, does not have chair time at outpatient dialysis center, Patient was discharged, case management caregivers contacted daughter Demetria number of times to come and pick her up, discharge planning per case management. Patient already had discharge orders, case management considering from hospice 03/21; patient's hemoglobin was 6.2 Transfuse 1 unit of PRBC and check H&H\ 03/22; patient's hemoglobin this morning was 6.5 after 1 unit of PRBC transfused 2 additional PRBC closely monitor 03/23; received total 3 units PRBC Hb today 8.5 Possible discharge tomorrow if stable DC planning per case management -Patient received total 3 units PRBC Hb 8.4 03/26; patient awaiting to be picked up by the family Patient has been discharged 2 days Family aware 03/27; patient has been discharged 2 days ago, daughter is not coming and picking her up, ESRD on hemodialysis, no resources Patient is weak and frail, case management working on outpatient dialysis set up and placement 03/28: Pending outpatient dialysis set up and placement. Daughter not coming to oyster picker the patient. Patient also on does not have insurance and outpatient dialysis set up. Continue supportive care. 03/29: Continue supportive care, pending placement and outpatient dialysis set up. No acute event overnight. Disposition; follow clinically, discharge planning per case management Assessment and plan: - Symptomatic anemia Hb 6.2-6.5-8.4 Patient received total 3 units hemoglobin improved to 8.4 Closely monitor H&H and transfuse additional PRBC --End stage renal disease on HD Patient missed hemodialysis. Nephrology following HD per schedule, blood transfusion during dialysis --Generalized body aches Tylenol 650 mg p.o. every 6 hours as needed. Resume home medication. We will monitor the patient closely and adjust -- Chronic ulcer of leg Is stable. 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 Pepcid 20 mg p.o. twice daily for GI prophylaxis. Patient is a full code -- Full CODE STATUS --DC planning; Per case management and family Daughter Demetria contact number [phone] Closely monitor the patient and adjust the management as needed Pending placement Subjective Date of service: 03/29/22 Principal diagnosis: ESRD Interval history: Patient seen and examined. Medical records and medication list reviewed. No acute event overnight noted by the RN. Patient getting hemodialysis as scheduled Pending outpatient dialysis set up and placement Objective - Exam Narrative Exam: GENERAL: White female appears way older than her stated age, lying on bed appeared to be in no discomfort. HEENT: Normocephalic. Atraumatic. No conjunctival congestion or icterus. Patient has moist mucous membranes. NECK: Supple. Trachea midline. CHEST/LUNGS: Clear to auscultated bilaterally, breathing nonlabored. No wheezes crackles or rhonchi. HEART/CARDIOVASCULAR: Regular in rate and rhythm. S1 and S2 positive. ABDOMEN: Abdomen is soft, nontender. Patient has normal bowel sounds. SKIN: There is no rash. Warm and dry. NEURO: No focal motor deficit. Follows command. MUSCULOSKELETAL: No joint effusion or tenderness. EXTRIMITY: No edema, no cyanosis or clubbing. PSYCH: Cooperative. - Constitutional Vitals: Vital Signs - 12hr 03/29/22 03/29/22 03/29/22 04:49 09:23 09:25 Temperature 98.5 F 97.0 F L Pulse Rate 90 96 H Respiratory 20 20 Rate Blood Pressure 97/46 Blood Pressure 86/45 91/44 [Left] O2 Sat by Pulse 95 99 Oximetry 03/29/22 03/29/22 03/29/22 10:00 12:01 12:30 Temperature 98.2 F Pulse Rate 92 H Respiratory 18 Rate Blood Pressure 87/49 Blood Pressure [Left] O2 Sat by Pulse 96 97 96 Oximetry - Labs CBC & Chem 7: 03/27/22 07:14 03/29/22 10:58 Labs: Abnormal lab results 03/29/22 Range/Units 10:58 Sodium 135 L (137-145) mmol/L Potassium 3.5 L (3.6-5.0) mmol/L Chloride 96.2 L (98-107) mmol/L Carbon Dioxide 33 H (22-30) mmol/L BUN 27 H (7-17) mg/dL Creatinine 3.5 H (0.6-1.2) mg/dL Glucose 106 H (65-100) mg/dL Calcium 8.1 L (8.4-10.2) mg/dL
[2022-03-29] MEDS: traZODone 50 MG TAB PO SCH (22:56)
[2022-03-30] MEDS: chlordiazePOXIDE 25 MG CAP PO SCH ×4 (06:02→23:12)
--- NOTE | 2022-03-30 09:17 | Progress Note ---
Assessment and Plan - Patient Problems (1) End stage renal disease Current Visit: No Status: Chronic Plan to address problem: Continue on current inpatient TTS HD schedule. (2) Anemia in end-stage renal disease Current Visit: Yes Status: Acute Plan to address problem: Transfuse to maintain Hgb>7.0 (3) Chronic ulcer of leg Current Visit: Yes Status: Acute Qualifiers: Laterality: unspecified laterality Non-pressure ulcer stage: unspecified non-pressure ulcer stage Qualified Code(s): L97.909 - Non-pressure chronic ulcer of unspecified part of unspecified lower leg with unspecified severity (4) Hypotension Current Visit: Yes Status: Acute Plan to address problem: Continue with current midodrine regimen. Have also added prn albumin orders for hypotension during HD. Subjective Date of service: 03/30/22 Principal diagnosis: ESRD Interval history: No acute changes. Plan for HD today. Objective - Vital Signs Vital signs: Vital Signs - 12hr 03/29/22 03/29/22 03/30/22 22:00 22:01 03:00 Temperature 98.9 F Pulse Rate 88 Respiratory 16 Rate Blood Pressure 94/47 O2 Sat by Pulse 100 98 98 Oximetry 03/30/22 03:44 Temperature 98.2 F Pulse Rate 87 Respiratory 16 Rate Blood Pressure 91/51 O2 Sat by Pulse 98 Oximetry - General Appearance General appearance: chronically ill EENT: ATNC Neck: no JVD Respiratory: Present: Decreased Breath Sounds Cardiology: regular Gastrointestinal: distended Integumentary: warm and dry Neurologic: disoriented Musculoskeletal: deferred - Lab 03/27/22 07:14 03/29/22 10:58 Most recent lab results Calcium 8.1 mg/dL (8.4-10.2) L 03/29/22 10:58 - Allied health notes Allied health notes reviewed: nursing Medications & Allergies - Medications Allergies/Adverse Reactions: Allergies Penicillins Allergy (Verified 03/16/22 19:11) Rash Home Medications: Home Medications Medication Instructions Recorded Confirmed Last Taken Type Multivitamin Tab [Multiple Vitamin 1 each PO ONCE #30 tablet 04/27/16 03/22/22 Unknown Rx TAB (Theragran)] FLUoxetine [PROzac] 20 mg PO QDAY #30 capsule 03/14/22 03/22/22 Unknown Rx Folic Acid [Folvite] 1 mg PO QDAY #30 tablet 03/14/22 03/22/22 Unknown Rx Lactulose [Cephulac] 20 gm PO QDAY #30 oral.liqd 03/14/22 03/22/22 Unknown Rx Pantoprazole [Protonix TAB] 40 mg PO QDAC #30 tablet 03/14/22 03/22/22 Unknown Rx Rifaximin [Xifaxan] 550 mg PO BID #60 tablet 03/14/22 03/22/22 Unknown Rx Sodium Bicarbonate 1,300 mg PO TID #90 tablet 03/14/22 03/22/22 Unknown Rx Thiamine [Vitamin B-1] 100 mg PO QDAY #30 tablet 03/14/22 03/22/22 Unknown Rx chlordiazePOXIDE [Librium] 25 mg PO Q6H #10 capsule 03/14/22 03/22/22 Unknown Rx traZODone [Desyrel] 50 mg PO QHS #30 tab 03/14/22 03/22/22 Unknown Rx Ferrous Sulfate [Feosol 325 MG tab] 325 mg PO BID #60 tablet 03/24/22 Unknown Rx Midodrine [Proamatine] 10 mg PO TID@0800,1200,1600 #90 03/24/22 Unknown Rx tablet oxyCODONE /ACETAMINOPHEN [Percocet 1 tab PO QHS #7 03/24/22 Unknown Rx 5/325] Active Medications: Generic Name Dose Route Start Last Admin Trade Name Freq PRN Reason Stop Dose Admin Acetaminophen 650 mg 03/21/22 02:28 03/29/22 05:22 Acetaminophen 325 Mg Tab PO 650 mg Q4H PRN Administration Pain MILD(1-3)/Fever >100.5/JOSEPH Albumin Human 25 gm 03/28/22 16:29 Albumin Human 25% (25 Gm/100 Ml) Inj IV PETRA PRN Hypotension Albuterol 2.5 mg 03/21/22 02:28 Albuterol 2.5 Mg/3 Ml Nebu IH Q3HRT PRN Shortness Of Breath Chlordiazepoxide HCl 25 mg 03/21/22 04:30 03/30/22 06:02 Chlordiazepoxide 25 Mg Cap PO 25 mg Q6HR FABIEN Administration Epoetin Arnulfo-epbx 10,000 unit 03/23/22 13:00 03/23/22 12:15 Epoetin Arnulfo-Epbx 10,000 Unit/1 Ml Vial SUB-Q 10,000 unit PETRA PRN Administration dialysis Famotidine 20 mg 03/21/22 10:00 03/29/22 09:26 Famotidine 20 Mg Tab PO 20 mg QAM FABIEN Administration Fluoxetine HCl 20 mg 03/21/22 10:00 03/29/22 09:26 Fluoxetine 20 Mg Cap PO 20 mg QDAY FABIEN Administration Folic Acid 1 mg 03/21/22 10:00 03/29/22 09:26 Folic Acid 1 Mg Tab PO 1 mg QDAY FABIEN Administration Heparin Sodium (Porcine) 5,000 unit 03/21/22 22:00 03/29/22 22:56 Heparin 5,000 Unit/1 Ml Vial SUB-Q 5,000 unit Q12HR FABIEN Administration Sodium Chloride 100 mls @ 999 mls/hr 03/28/22 16:29 Nacl 0.9% IV PETRA PRN Hypotension Lactulose 20 gm 03/21/22 10:00 03/29/22 09:25 Lactulose 20 Gm/30 Ml Oral Liqd PO 20 gm QDAY FABIEN Administration Midodrine 10 mg 03/21/22 08:00 03/29/22 18:10 Midodrine 10 Mg Tab PO 10 mg TID@0800,1200,1600 FABIEN Administration Morphine Sulfate 4 mg 03/21/22 02:28 Morphine 4 Mg/1 Ml Inj IV Q4H PRN Pain , Severe (7-10) Morphine Sulfate 2 mg 03/21/22 02:28 03/24/22 18:56 Morphine 2 Mg/1 Ml Inj IV 2 mg Q4H PRN Administration Pain, Moderate (4-6) Ondansetron HCl 4 mg 03/21/22 02:28 Ondansetron 4 Mg/2 Ml Inj IV Q8H PRN Nausea And Vomiting Rifaximin 550 mg 03/21/22 10:00 03/29/22 22:56 Rifaximin 550 Mg Tab PO 550 mg BID FABIEN Administration Sodium Bicarbonate 1,300 mg 03/21/22 08:00 03/29/22 18:10 Sodium Bicarbonate 650 Mg Tab PO 1,300 mg TIDWM FABIEN Administration Sodium Chloride 10 ml 03/21/22 10:00 03/29/22 22:56 Sodium Chloride 0.9% 10 Ml Flush Syringe IV 10 ml BID FABIEN Administration Sodium Chloride 10 ml 03/21/22 02:28 Sodium Chloride 0.9% 10 Ml Flush Syringe IV PRN PRN LINE FLUSH Thiamine HCl 100 mg 03/21/22 10:00 03/29/22 09:26 Thiamine 100 Mg Tab PO 100 mg QDAY FABIEN Administration Trazodone HCl 50 mg 03/21/22 22:00 03/29/22 22:56 Trazodone 50 Mg Tab PO 50 mg QHS FABIEN Administration
[2022-03-30] MEDS: FAMOTIDINE 20 MG TAB PO SCH (10:26)
[2022-03-30] MEDS: RIFAXIMIN 550 MG TAB PO SCH ×2 (10:26→22:37)
[2022-03-30] MEDS: FOLIC ACID 1 MG TAB PO SCH (10:26)
[2022-03-30] MEDS: MIDODRINE 10 MG TAB PO SCH ×3 (10:26→16:37)
[2022-03-30] MEDS: FLUoxetine 20 MG CAP PO SCH (10:26)
[2022-03-30] MEDS: HEPARIN 5,000 UNIT/1 ML VIAL SUB-Q SCH ×2 (10:26→22:37)
[2022-03-30] MEDS: THIAMINE 100 MG TAB PO SCH (10:26)
[2022-03-30] MEDS: LACTULOSE 20 GM/30 ML ORAL LIQD PO SCH (10:26)
[2022-03-30] MEDS: EPOETIN ALFA-EPBX 10,000 UNIT/1 ML VIAL SUB-Q PRN (14:24)
[2022-03-30] MEDS: SODIUM BICARBONATE 650 MG TAB PO SCH (14:46)
--- NOTE | 2022-03-30 16:21 | Progress Note ---
Assessment and Plan Brief history; 51 yo F with history of chronic bilateral lower leg ulcer and ESRD with dialysis on MWF who now present with generalized body aches for the last couple of days. Pt last dialysis was on Sunday so she missed session today. No fever or chills. No other modifying or associated factors. In the emergency room patient is found to have hemoglobin of 6.2 and hematocrit 18.8, she will going to transfuse 1 unit of packed red blood cells also will consult nephrology for hemodialysis, patient was cleared for discharge, does not have resources, does not have chair time at outpatient dialysis center, Patient was discharged, case management caregivers contacted daughter Demetria number of times to come and pick her up, discharge planning per case management. Patient already had discharge orders, case management considering from hospice 03/21; patient's hemoglobin was 6.2 Transfuse 1 unit of PRBC and check H&H\ 03/22; patient's hemoglobin this morning was 6.5 after 1 unit of PRBC transfused 2 additional PRBC closely monitor 03/23; received total 3 units PRBC Hb today 8.5 Possible discharge tomorrow if stable DC planning per case management -Patient received total 3 units PRBC Hb 8.4 03/26; patient awaiting to be picked up by the family Patient has been discharged 2 days Family aware 03/27; patient has been discharged 2 days ago, daughter is not coming and picking her up, ESRD on hemodialysis, no resources Patient is weak and frail, case management working on outpatient dialysis set up and placement 03/28: Pending outpatient dialysis set up and placement. Daughter not coming to vegetable picker the patient. Patient also on does not have insurance and outpatient dialysis set up. Continue supportive care. 3: Continue supportive care, pending placement and outpatient dialysis set up. No acute event overnight. 03/30: Pending placement and outpatient HD set up. Continue supportive care. Disposition; follow clinically, discharge planning per case management Assessment and plan: - Symptomatic anemia Hb 6.2-6.5-8.4 Patient received total 3 units hemoglobin improved to 8.4 Closely monitor H&H and transfuse additional PRBC --End stage renal disease on HD Patient missed hemodialysis. Nephrology following HD per schedule, blood transfusion during dialysis --Generalized body aches Tylenol 650 mg p.o. every 6 hours as needed. Resume home medication. We will monitor the patient closely and adjust -- Chronic ulcer of leg Is stable. 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 Pepcid 20 mg p.o. twice daily for GI prophylaxis. Patient is a full code -- Full CODE STATUS --DC planning; Per case management and family Daughter Demetria contact number [phone] Closely monitor the patient and adjust the management as needed Pending placement Subjective Date of service: 03/30/22 Principal diagnosis: ESRD Interval history: Patient seen and examined. Medical records and medication list reviewed. No acute event overnight noted by the RN. Patient getting hemodialysis as scheduled Pending outpatient dialysis set up and placement Objective - Exam Narrative Exam: GENERAL: White female appears way older than her stated age, lying on bed appeared to be in no discomfort. HEENT: Normocephalic. Atraumatic. No conjunctival congestion or icterus. Patient has moist mucous membranes. NECK: Supple. Trachea midline. CHEST/LUNGS: Clear to auscultated bilaterally, breathing nonlabored. No wheezes crackles or rhonchi. HEART/CARDIOVASCULAR: Regular in rate and rhythm. S1 and S2 positive. ABDOMEN: Abdomen is soft, nontender. Patient has normal bowel sounds. SKIN: There is no rash. Warm and dry. NEURO: No focal motor deficit. Follows command. MUSCULOSKELETAL: No joint effusion or tenderness. EXTRIMITY: No edema, no cyanosis or clubbing. PSYCH: Cooperative. - Constitutional Vitals: Vital Signs - 12hr 03/30/22 03/30/22 03/30/22 10:22 10:30 10:44 Temperature 98.2 F Pulse Rate 89 Respiratory 17 Rate Blood Pressure 82/43 85/42 84/51 O2 Sat by Pulse 100 Oximetry [ Anterior Bilateral Throughout] 03/30/22 03/30/22 03/30/22 10:50 11:00 11:15 Temperature Pulse Rate 86 86 88 Respiratory Rate Blood Pressure 87/48 82/47 80/45 O2 Sat by Pulse Oximetry [ Anterior Bilateral Throughout] 03/30/22 03/30/22 03/30/22 11:30 11:45 12:00 Temperature Pulse Rate 89 91 H 92 H Respiratory Rate Blood Pressure 88/47 86/48 81/49 O2 Sat by Pulse Oximetry [ Anterior Bilateral Throughout] 03/30/22 03/30/22 03/30/22 12:15 12:30 12:45 Temperature Pulse Rate 90 95 H 91 H Respiratory Rate Blood Pressure 82/47 80/42 85/43 O2 Sat by Pulse Oximetry [ Anterior Bilateral Throughout] 03/30/22 03/30/22 03/30/22 13:00 13:15 13:30 Temperature Pulse Rate 92 H 81 90 Respiratory Rate Blood Pressure 84/45 89/59 88/49 O2 Sat by Pulse Oximetry [ Anterior Bilateral Throughout] 03/30/22 03/30/22 03/30/22 13:45 14:00 14:15 Temperature Pulse Rate 88 90 89 Respiratory Rate Blood Pressure 91/50 99/54 98/51 O2 Sat by Pulse Oximetry [ Anterior Bilateral Throughout] 03/30/22 03/30/22 14:20 14:28 Temperature 98.0 F Pulse Rate 89 91 H Respiratory 18 Rate Blood Pressure 100/62 101/58 O2 Sat by Pulse 100 Oximetry [ Anterior Bilateral Throughout] - Labs CBC & Chem 7: 03/27/22 07:14 03/29/22 10:58
[2022-03-30] MEDS: traZODone 50 MG TAB PO SCH (22:37)
[2022-03-30] MEDS: ACETAMINOPHEN 325 MG TAB PO PRN (23:12)
[2022-03-31] MEDS: chlordiazePOXIDE 25 MG CAP PO SCH ×3 (05:11→17:29)
[2022-03-31] MEDS: ACETAMINOPHEN 325 MG TAB PO PRN (05:12)
[2022-03-31] MEDS: MIDODRINE 10 MG TAB PO SCH ×3 (08:30→17:29)
[2022-03-31] MEDS: THIAMINE 100 MG TAB PO SCH (09:45)
[2022-03-31] MEDS: HEPARIN 5,000 UNIT/1 ML VIAL SUB-Q SCH ×2 (09:45→22:19)
[2022-03-31] MEDS: LACTULOSE 20 GM/30 ML ORAL LIQD PO SCH (09:45)
[2022-03-31] MEDS: FLUoxetine 20 MG CAP PO SCH (09:45)
[2022-03-31] MEDS: RIFAXIMIN 550 MG TAB PO SCH ×2 (09:45→22:19)
[2022-03-31] MEDS: FOLIC ACID 1 MG TAB PO SCH (09:46)
[2022-03-31] MEDS: FAMOTIDINE 20 MG TAB PO SCH (09:46)
--- NOTE | 2022-03-31 16:00 | Progress Note ---
Assessment and Plan Brief history; 51 yo F with history of chronic bilateral lower leg ulcer and ESRD with dialysis on MWF who now present with generalized body aches for the last couple of days. Pt last dialysis was on Sunday so she missed session today. No fever or chills. No other modifying or associated factors. In the emergency room patient is found to have hemoglobin of 6.2 and hematocrit 18.8, she will going to transfuse 1 unit of packed red blood cells also will consult nephrology for hemodialysis, patient was cleared for discharge, does not have resources, does not have chair time at outpatient dialysis center, Patient was discharged, case management caregivers contacted daughter Demetria number of times to come and pick her up, discharge planning per case management. Patient already had discharge orders, case management considering from hospice 03/21; patient's hemoglobin was 6.2 Transfuse 1 unit of PRBC and check H&H\ 03/22; patient's hemoglobin this morning was 6.5 after 1 unit of PRBC transfused 2 additional PRBC closely monitor 03/23; received total 3 units PRBC Hb today 8.5 Possible discharge tomorrow if stable DC planning per case management -Patient received total 3 units PRBC Hb 8.4 03/26; patient awaiting to be picked up by the family Patient has been discharged 2 days Family aware 03/27; patient has been discharged 2 days ago, daughter is not coming and picking her up, ESRD on hemodialysis, no resources Patient is weak and frail, case management working on outpatient dialysis set up and placement 2: Pending outpatient dialysis set up and placement. Daughter not coming to warehouse picker the patient. Patient also on does not have insurance and outpatient dialysis set up. Continue supportive care. 83: Continue supportive care, pending placement and outpatient dialysis set up. No acute event overnight. 4: Pending placement and outpatient HD set up. Continue supportive care. 5: Pending placement, continue supportive care. Vitals noted to be stable. Disposition; follow clinically, discharge planning per case management Assessment and plan: - Symptomatic anemia Hb 6.2-6.5-8.4 Patient received total 3 units hemoglobin improved to 8.4 Closely monitor H&H and transfuse additional PRBC --End stage renal disease on HD Patient missed hemodialysis. Nephrology following HD per schedule, blood transfusion during dialysis --Generalized body aches Tylenol 650 mg p.o. every 6 hours as needed. Resume home medication. We will monitor the patient closely and adjust -- Chronic ulcer of leg Is stable. 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 Pepcid 20 mg p.o. twice daily for GI prophylaxis. Patient is a full code -- Full CODE STATUS --DC planning; Per case management and family Daughter Demetria contact number [phone] Closely monitor the patient and adjust the management as needed Pending placement Subjective Date of service: 03/31/22 Principal diagnosis: ESRD Interval history: Patient seen and examined. Medical records and medication list reviewed. No acute event overnight noted by the RN. Patient getting hemodialysis as scheduled Pending outpatient dialysis set up and placement Objective - Exam Narrative Exam: GENERAL: White female appears way older than her stated age, lying on bed appeared to be in no discomfort. HEENT: Normocephalic. Atraumatic. No conjunctival congestion or icterus. Patient has moist mucous membranes. NECK: Supple. Trachea midline. CHEST/LUNGS: Clear to auscultated bilaterally, breathing nonlabored. No wheezes crackles or rhonchi. HEART/CARDIOVASCULAR: Regular in rate and rhythm. S1 and S2 positive. ABDOMEN: Abdomen is soft, nontender. Patient has normal bowel sounds. SKIN: There is no rash. Warm and dry. NEURO: No focal motor deficit. Follows command. MUSCULOSKELETAL: No joint effusion or tenderness. EXTRIMITY: No edema, no cyanosis or clubbing. PSYCH: Cooperative. - Constitutional Vitals: Vital Signs - 12hr 03/31/22 03/31/22 04:37 08:23 Temperature 97.9 F Pulse Rate 87 Respiratory 16 Rate Blood Pressure 91/49 O2 Sat by Pulse 88 94 Oximetry - Labs CBC & Chem 7: 08/06/22 04:16 04/01/22 04:16
--- NOTE | 2022-03-31 16:53 | Progress Note ---
Assessment and Plan - Patient Problems (1) End stage renal disease Current Visit: No Status: Chronic Plan to address problem: Continue on current inpatient TTS HD schedule. (2) Anemia in end-stage renal disease Current Visit: Yes Status: Acute Plan to address problem: Transfuse to maintain Hgb>7.0 (3) Chronic ulcer of leg Current Visit: Yes Status: Acute Qualifiers: Laterality: unspecified laterality Non-pressure ulcer stage: unspecified non-pressure ulcer stage Qualified Code(s): L97.909 - Non-pressure chronic ulcer of unspecified part of unspecified lower leg with unspecified severity (4) Hypotension Current Visit: Yes Status: Acute Plan to address problem: Continue with current midodrine regimen. Have also added prn albumin orders for hypotension during HD. Subjective Date of service: 03/31/22 Principal diagnosis: ESRD Interval history: No acute events overnight. Objective - Vital Signs Vital signs: Vital Signs - 12hr 03/31/22 08:23 O2 Sat by Pulse 94 Oximetry - General Appearance General appearance: appears stated age, chronically ill, frail EENT: ATNC Neck: no JVD Respiratory: Present: Decreased Breath Sounds Cardiology: regular Gastrointestinal: distended Integumentary: warm and dry Neurologic: disoriented Musculoskeletal: deferred - Lab 03/27/22 07:14 03/29/22 10:58 Most recent lab results Calcium 8.1 mg/dL (8.4-10.2) L 03/29/22 10:58 - Allied health notes Allied health notes reviewed: nursing Medications & Allergies - Medications Allergies/Adverse Reactions: Allergies Penicillins Allergy (Verified 03/16/22 19:11) Rash Home Medications: Home Medications Medication Instructions Recorded Confirmed Last Taken Type Multivitamin Tab [Multiple Vitamin 1 each PO ONCE #30 tablet 04/27/16 03/22/22 Unknown Rx TAB (Theragran)] FLUoxetine [PROzac] 20 mg PO QDAY #30 capsule 03/14/22 03/22/22 Unknown Rx Folic Acid [Folvite] 1 mg PO QDAY #30 tablet 03/14/22 03/22/22 Unknown Rx Lactulose [Cephulac] 20 gm PO QDAY #30 oral.liqd 03/14/22 03/22/22 Unknown Rx Pantoprazole [Protonix TAB] 40 mg PO QDAC #30 tablet 03/14/22 03/22/22 Unknown Rx Rifaximin [Xifaxan] 550 mg PO BID #60 tablet 03/14/22 03/22/22 Unknown Rx Sodium Bicarbonate 1,300 mg PO TID #90 tablet 03/14/22 03/22/22 Unknown Rx Thiamine [Vitamin B-1] 100 mg PO QDAY #30 tablet 03/14/22 03/22/22 Unknown Rx chlordiazePOXIDE [Librium] 25 mg PO Q6H #10 capsule 03/14/22 03/22/22 Unknown Rx traZODone [Desyrel] 50 mg PO QHS #30 tab 03/14/22 03/22/22 Unknown Rx Ferrous Sulfate [Feosol 325 MG tab] 325 mg PO BID #60 tablet 03/24/22 Unknown Rx Midodrine [Proamatine] 10 mg PO TID@0800,1200,1600 #90 03/24/22 Unknown Rx tablet oxyCODONE /ACETAMINOPHEN [Percocet 1 tab PO QHS #7 03/24/22 Unknown Rx 5/325] Active Medications: Generic Name Dose Route Start Last Admin Trade Name Freq PRN Reason Stop Dose Admin Acetaminophen 650 mg 03/21/22 02:28 03/31/22 05:12 Acetaminophen 325 Mg Tab PO 650 mg Q4H PRN Administration Pain MILD(1-3)/Fever >100.5/JOSEPH Albumin Human 25 gm 03/28/22 16:29 Albumin Human 25% (25 Gm/100 Ml) Inj IV PETRA PRN Hypotension Albuterol 2.5 mg 03/21/22 02:28 Albuterol 2.5 Mg/3 Ml Nebu IH Q3HRT PRN Shortness Of Breath Chlordiazepoxide HCl 25 mg 03/21/22 04:30 03/31/22 11:24 Chlordiazepoxide 25 Mg Cap PO 25 mg Q6HR FABIEN Administration Epoetin Arnulfo-epbx 10,000 unit 03/23/22 13:00 03/30/22 14:24 Epoetin Arnulfo-Epbx 10,000 Unit/1 Ml Vial SUB-Q 10,000 unit PETRA PRN Administration dialysis Famotidine 20 mg 03/21/22 10:00 03/31/22 09:46 Famotidine 20 Mg Tab PO 20 mg QAM FABIEN Administration Fluoxetine HCl 20 mg 03/21/22 10:00 03/31/22 09:45 Fluoxetine 20 Mg Cap PO 20 mg QDAY FABIEN Administration Folic Acid 1 mg 03/21/22 10:00 03/31/22 09:46 Folic Acid 1 Mg Tab PO 1 mg QDAY FABIEN Administration Heparin Sodium (Porcine) 5,000 unit 03/21/22 22:00 03/31/22 09:45 Heparin 5,000 Unit/1 Ml Vial SUB-Q 5,000 unit Q12HR FABIEN Administration Sodium Chloride 100 mls @ 999 mls/hr 03/28/22 16:29 Nacl 0.9% IV PETRA PRN Hypotension Lactulose 20 gm 03/21/22 10:00 03/31/22 09:45 Lactulose 20 Gm/30 Ml Oral Liqd PO 20 gm QDAY FABIEN Administration Midodrine 10 mg 03/21/22 08:00 03/31/22 11:24 Midodrine 10 Mg Tab PO 10 mg TID@0800,1200,1600 FABIEN Administration Morphine Sulfate 4 mg 03/21/22 02:28 Morphine 4 Mg/1 Ml Inj IV Q4H PRN Pain , Severe (7-10) Morphine Sulfate 2 mg 03/21/22 02:28 03/24/22 18:56 Morphine 2 Mg/1 Ml Inj IV 2 mg Q4H PRN Administration Pain, Moderate (4-6) Ondansetron HCl 4 mg 03/21/22 02:28 Ondansetron 4 Mg/2 Ml Inj IV Q8H PRN Nausea And Vomiting Rifaximin 550 mg 03/21/22 10:00 03/31/22 09:45 Rifaximin 550 Mg Tab PO 550 mg BID FABIEN Administration Sodium Bicarbonate 1,300 mg 04/01/22 08:00 Sodium Bicarbonate 650 Mg Tab PO TIDWM FABIEN Sodium Chloride 10 ml 03/21/22 10:00 03/31/22 09:46 Sodium Chloride 0.9% 10 Ml Flush Syringe IV 10 ml BID FABIEN Administration Sodium Chloride 10 ml 03/21/22 02:28 Sodium Chloride 0.9% 10 Ml Flush Syringe IV PRN PRN LINE FLUSH Thiamine HCl 100 mg 03/21/22 10:00 03/31/22 09:45 Thiamine 100 Mg Tab PO 100 mg QDAY FABIEN Administration Trazodone HCl 50 mg 03/21/22 22:00 03/30/22 22:37 Trazodone 50 Mg Tab PO 50 mg QHS FABIEN Administration
[2022-03-31] MEDS: traZODone 50 MG TAB PO SCH (22:19)
[2022-04-01 04:46] LABS: Hematocrit 25.4 % (30.3-42.9); Hemoglobin 8.5 gm/dl (10.1-14.3); Mean Corpuscular HGB Conc 33 % (30-34); Mean Corpuscular Volume 100 fl (79-97); Platelet Count 100 K/mm3 (140-440); Red Blood Count 2.55 M/mm3 (3.65-5.03)
[2022-04-01 04:47] LABS: Red Cell Distribution Width 25.1 % (13.2-15.2)
[2022-04-01 04:54] LABS: Calcium 8.6 mg/dL (8.4-10.2)
[2022-04-01] MEDS: chlordiazePOXIDE 25 MG CAP PO SCH ×5 (05:27→23:45)
[2022-04-01 05:45] LABS: Anisocytosis 2+; Platelet Estimate Consistent w Auto; Total Cells Counted 100
[2022-04-01 05:46] LABS: Smudge Cells Few
[2022-04-01] MEDS ORDERED: SODIUM BICARBONATE 650 MG TAB PO SCH (08:00)
[2022-04-01] MEDS: FLUoxetine 20 MG CAP PO SCH (09:19)
[2022-04-01] MEDS: FOLIC ACID 1 MG TAB PO SCH (09:19)
[2022-04-01] MEDS: THIAMINE 100 MG TAB PO SCH (09:19)
[2022-04-01] MEDS: LACTULOSE 20 GM/30 ML ORAL LIQD PO SCH (09:19)
[2022-04-01] MEDS: HEPARIN 5,000 UNIT/1 ML VIAL SUB-Q SCH ×2 (09:20→23:45)
[2022-04-01] MEDS: FAMOTIDINE 20 MG TAB PO SCH (09:20)
[2022-04-01] MEDS: RIFAXIMIN 550 MG TAB PO SCH ×2 (09:20→23:45)
[2022-04-01] MEDS: MIDODRINE 10 MG TAB PO SCH ×3 (09:21→16:35)
--- NOTE | 2022-04-01 09:42 | Progress Note ---
Assessment and Plan - Patient Problems (1) End stage renal disease Current Visit: No Status: Chronic Plan to address problem: Cont HD on TTS schedule while inpatient. cont albumin support prn and on midodrine 10mg po tid to maintain MAP > 65mmHg. Patient does not have outpatient HD currently due to uninsured status. (2) Anemia Current Visit: Yes Status: Acute Qualifiers: Anemia type: unspecified type Qualified Code(s): D64.9 - Anemia, unspecified Plan to address problem: cont EPO with HD, transfuse with PRBC prn to target Hb > 7 (3) Chronic ulcer of leg Current Visit: Yes Status: Acute Qualifiers: Laterality: unspecified laterality Non-pressure ulcer stage: unspecified non-pressure ulcer stage Qualified Code(s): L97.909 - Non-pressure chronic ulcer of unspecified part of unspecified lower leg with unspecified severity (4) Hypotension Current Visit: Yes Status: Acute Plan to address problem: cont midodrine 10mg po tid. Albumin support prn for HD to maintain MAP > 65mmHg Subjective Date of service: 04/01/22 Principal diagnosis: ESRD Interval history: Patient is weak, lethargic, cont HD on TTS schedule with albumin support as needed Objective - Exam Narrative Exam: Pt remains weak, with poor appetite, denies acute respiratory distress, CP, fever, chills, dysuria - Vital Signs Vital signs: Vital Signs - 12hr 03/31/22 03/31/22 04/01/22 22:00 22:15 05:21 Temperature 97.8 F 98.6 F Pulse Rate 87 90 Respiratory 17 17 Rate Blood Pressure 93/49 93/46 [Left] O2 Sat by Pulse 96 96 97 Oximetry 04/01/22 09:08 Temperature Pulse Rate Respiratory Rate Blood Pressure [Left] O2 Sat by Pulse 95 Oximetry - General Appearance General appearance: well-developed, cachectic, chronically ill EENT: ATNC, PERRL, mucous membranes moist Neck: no JVD Respiratory: Present: Decreased Breath Sounds Cardiology: regular, S1S2 Gastrointestinal: normoactive bowel sounds - Lab 04/01/22 04:16 04/01/22 04:16 Most recent lab results Calcium 8.6 mg/dL (8.4-10.2) 04/01/22 04:16 Medications & Allergies - Medications Allergies/Adverse Reactions: Allergies Penicillins Allergy (Verified 03/16/22 19:11) Rash Home Medications: Home Medications Medication Instructions Recorded Confirmed Last Taken Type Multivitamin Tab [Multiple Vitamin 1 each PO ONCE #30 tablet 04/27/16 03/22/22 Unknown Rx TAB (Theragran)] FLUoxetine [PROzac] 20 mg PO QDAY #30 capsule 03/14/22 03/22/22 Unknown Rx Folic Acid [Folvite] 1 mg PO QDAY #30 tablet 03/14/22 03/22/22 Unknown Rx Lactulose [Cephulac] 20 gm PO QDAY #30 oral.liqd 03/14/22 03/22/22 Unknown Rx Pantoprazole [Protonix TAB] 40 mg PO QDAC #30 tablet 03/14/22 03/22/22 Unknown Rx Rifaximin [Xifaxan] 550 mg PO BID #60 tablet 03/14/22 03/22/22 Unknown Rx Sodium Bicarbonate 1,300 mg PO TID #90 tablet 03/14/22 03/22/22 Unknown Rx Thiamine [Vitamin B-1] 100 mg PO QDAY #30 tablet 03/14/22 03/22/22 Unknown Rx chlordiazePOXIDE [Librium] 25 mg PO Q6H #10 capsule 03/14/22 03/22/22 Unknown Rx traZODone [Desyrel] 50 mg PO QHS #30 tab 03/14/22 03/22/22 Unknown Rx Ferrous Sulfate [Feosol 325 MG tab] 325 mg PO BID #60 tablet 03/24/22 Unknown Rx Midodrine [Proamatine] 10 mg PO TID@0800,1200,1600 #90 03/24/22 Unknown Rx tablet oxyCODONE /ACETAMINOPHEN [Percocet 1 tab PO QHS #7 03/24/22 Unknown Rx 5/325] Active Medications: Generic Name Dose Route Start Last Admin Trade Name Freq PRN Reason Stop Dose Admin Acetaminophen 650 mg 03/21/22 02:28 03/31/22 05:12 Acetaminophen 325 Mg Tab PO 650 mg Q4H PRN Administration Pain MILD(1-3)/Fever >100.5/JOSEPH Albumin Human 25 gm 03/28/22 16:29 Albumin Human 25% (25 Gm/100 Ml) Inj IV PETRA PRN Hypotension Albuterol 2.5 mg 03/21/22 02:28 Albuterol 2.5 Mg/3 Ml Nebu IH Q3HRT PRN Shortness Of Breath Chlordiazepoxide HCl 25 mg 03/21/22 04:30 04/01/22 05:27 Chlordiazepoxide 25 Mg Cap PO 25 mg Q6HR FABIEN Administration Epoetin Arnulfo-epbx 10,000 unit 03/23/22 13:00 03/30/22 14:24 Epoetin Arnulfo-Epbx 10,000 Unit/1 Ml Vial SUB-Q 10,000 unit PETRA PRN Administration dialysis Famotidine 20 mg 03/21/22 10:00 04/01/22 09:20 Famotidine 20 Mg Tab PO 20 mg QAM FABIEN Administration Fluoxetine HCl 20 mg 03/21/22 10:00 04/01/22 09:19 Fluoxetine 20 Mg Cap PO 20 mg QDAY FABIEN Administration Folic Acid 1 mg 03/21/22 10:00 04/01/22 09:19 Folic Acid 1 Mg Tab PO 1 mg QDAY FABIEN Administration Heparin Sodium (Porcine) 5,000 unit 03/21/22 22:00 04/01/22 09:20 Heparin 5,000 Unit/1 Ml Vial SUB-Q 5,000 unit Q12HR FABIEN Administration Sodium Chloride 100 mls @ 999 mls/hr 03/28/22 16:29 Nacl 0.9% IV PETRA PRN Hypotension Lactulose 20 gm 03/21/22 10:00 04/01/22 09:19 Lactulose 20 Gm/30 Ml Oral Liqd PO 20 gm QDAY FABIEN Administration Midodrine 10 mg 03/21/22 08:00 04/01/22 09:21 Midodrine 10 Mg Tab PO 10 mg TID@0800,1200,1600 FABIEN Administration Morphine Sulfate 4 mg 03/21/22 02:28 Morphine 4 Mg/1 Ml Inj IV Q4H PRN Pain , Severe (7-10) Morphine Sulfate 2 mg 03/21/22 02:28 03/24/22 18:56 Morphine 2 Mg/1 Ml Inj IV 2 mg Q4H PRN Administration Pain, Moderate (4-6) Ondansetron HCl 4 mg 03/21/22 02:28 Ondansetron 4 Mg/2 Ml Inj IV Q8H PRN Nausea And Vomiting Rifaximin 550 mg 03/21/22 10:00 04/01/22 09:20 Rifaximin 550 Mg Tab PO 550 mg BID FABIEN Administration Sodium Bicarbonate 1,300 mg 04/01/22 08:00 04/01/22 09:19 Sodium Bicarbonate 650 Mg Tab PO 1,300 mg TIDWM FABIEN Administration Sodium Chloride 10 ml 03/21/22 10:00 04/01/22 09:20 Sodium Chloride 0.9% 10 Ml Flush Syringe IV 10 ml BID FABIEN Administration Sodium Chloride 10 ml 03/21/22 02:28 Sodium Chloride 0.9% 10 Ml Flush Syringe IV PRN PRN LINE FLUSH Thiamine HCl 100 mg 03/21/22 10:00 04/01/22 09:19 Thiamine 100 Mg Tab PO 100 mg QDAY FABIEN Administration Trazodone HCl 50 mg 03/21/22 22:00 03/31/22 22:19 Trazodone 50 Mg Tab PO 50 mg QHS FABIEN Administration
--- NOTE | 2022-04-01 12:47 | Progress Note ---
Assessment and Plan Brief history; 51 yo F with history of chronic bilateral lower leg ulcer and ESRD with dialysis on MWF who now present with generalized body aches for the last couple of days. Pt last dialysis was on Sunday so she missed session today. No fever or chills. No other modifying or associated factors. In the emergency room patient is found to have hemoglobin of 6.2 and hematocrit 18.8, she will going to transfuse 1 unit of packed red blood cells also will consult nephrology for hemodialysis, patient was cleared for discharge, does not have resources, does not have chair time at outpatient dialysis center, Patient was discharged, case management caregivers contacted daughter Demetria number of times to come and pick her up, discharge planning per case management. Patient already had discharge orders, case management considering from hospice 03/21; patient's hemoglobin was 6.2 Transfuse 1 unit of PRBC and check H&H\ 03/22; patient's hemoglobin this morning was 6.5 after 1 unit of PRBC transfused 2 additional PRBC closely monitor 03/23; received total 3 units PRBC Hb today 8.5 Possible discharge tomorrow if stable DC planning per case management -Patient received total 3 units PRBC Hb 8.4 03/26; patient awaiting to be picked up by the family Patient has been discharged 2 days Family aware 03/27; patient has been discharged 2 days ago, daughter is not coming and picking her up, ESRD on hemodialysis, no resources Patient is weak and frail, case management working on outpatient dialysis set up and placement 03/28: Pending outpatient dialysis set up and placement. Daughter not coming to picking tech the patient. Patient also on does not have insurance and outpatient dialysis set up. Continue supportive care. 3: Continue supportive care, pending placement and outpatient dialysis set up. No acute event overnight. 03/30: Pending placement and outpatient HD set up. Continue supportive care. 03/31: pending placement 04/01: refused HD today, counselled patient, pending placement Disposition; follow clinically, discharge planning per case management Assessment and plan: - Symptomatic anemia Hb 6.2-6.5-8.4 Patient received total 3 units hemoglobin improved to 8.4 Closely monitor H&H and transfuse additional PRBC --End stage renal disease on HD Patient missed hemodialysis. Nephrology following HD per schedule, blood transfusion during dialysis --Generalized body aches Tylenol 650 mg p.o. every 6 hours as needed. Resume home medication. We will monitor the patient closely and adjust -- Chronic ulcer of leg Is stable. 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 Pepcid 20 mg p.o. twice daily for GI prophylaxis. Patient is a full code -- Full CODE STATUS --DC planning; Per case management and family Daughter Demetria contact number [phone] Closely monitor the patient and adjust the management as needed Pending placement Subjective Date of service: 04/01/22 Principal diagnosis: ESRD Interval history: Patient seen and examined. Medical records and medication list reviewed. No acute event overnight noted by the RN. Patient refused HD today Pending outpatient dialysis set up and placement Objective - Exam Narrative Exam: GENERAL: White female appears way older than her stated age, lying on bed appeared to be in no discomfort. HEENT: Normocephalic. Atraumatic. No conjunctival congestion or icterus. Patient has moist mucous membranes. NECK: Supple. Trachea midline. CHEST/LUNGS: Clear to auscultated bilaterally, breathing nonlabored. No wheezes crackles or rhonchi. HEART/CARDIOVASCULAR: Regular in rate and rhythm. S1 and S2 positive. ABDOMEN: Abdomen is soft, nontender. Patient has normal bowel sounds. SKIN: There is no rash. Warm and dry. NEURO: No focal motor deficit. Follows command. MUSCULOSKELETAL: No joint effusion or tenderness. EXTRIMITY: No edema, no cyanosis or clubbing. PSYCH: Cooperative. - Constitutional Vitals: Vital Signs - 12hr 04/01/22 04/01/22 04/01/22 05:21 09:08 11:10 Temperature 98.6 F 98.3 F Pulse Rate 90 87 Respiratory 17 18 Rate Blood Pressure 105/60 Blood Pressure 93/46 [Left] O2 Sat by Pulse 97 95 Oximetry O2 Sat by Pulse 98 Oximetry [ Anterior Bilateral Throughout] 04/01/22 04/01/22 04/01/22 11:15 11:30 11:45 Temperature Pulse Rate 87 89 84 Respiratory Rate Blood Pressure 104/57 98/56 98/51 Blood Pressure [Left] O2 Sat by Pulse Oximetry O2 Sat by Pulse Oximetry [ Anterior Bilateral Throughout] 04/01/22 04/01/22 04/01/22 12:00 12:15 12:30 Temperature Pulse Rate 85 85 85 Respiratory Rate Blood Pressure 99/51 98/53 101/52 Blood Pressure [Left] O2 Sat by Pulse Oximetry O2 Sat by Pulse Oximetry [ Anterior Bilateral Throughout] - Labs CBC & Chem 7: 04/01/22 04:16 04/01/22 04:16 Labs: Abnormal lab results 04/01/22 04/01/22 Range/Units 04:16 04:16 RBC 2.55 L (3.65-5.03) M/mm3 Hgb 8.5 L (10.1-14.3) gm/dl Hct 25.4 L (30.3-42.9) % MCV 100 H (79-97) fl MCH 33 H (28-32) pg RDW 25.1 H (13.2-15.2) % Plt Count 100 L (140-440) K/mm3 Monocytes % (Manual) 11.0 H (0.0-7.3) % Lymphocytes # (Manual) 1.1 L (1.2-5.4) K/mm3 Sodium 134 L (137-145) mmol/L Potassium 3.3 L (3.6-5.0) mmol/L Chloride 96.7 L (98-107) mmol/L Carbon Dioxide 32 H (22-30) mmol/L BUN 25 H (7-17) mg/dL Creatinine 3.2 H (0.6-1.2) mg/dL
[2022-04-01] MEDS: EPOETIN ALFA-EPBX 10,000 UNIT/1 ML VIAL SUB-Q PRN (14:40)
[2022-04-01] MEDS: traZODone 50 MG TAB PO SCH (23:45)
[2022-04-02] MEDS: ACETAMINOPHEN 325 MG TAB PO PRN (00:48)
[2022-04-02] MEDS: chlordiazePOXIDE 25 MG CAP PO SCH ×3 (05:16→22:07)
[2022-04-02] MEDS: LACTULOSE 20 GM/30 ML ORAL LIQD PO SCH (09:55)
[2022-04-02] MEDS: FOLIC ACID 1 MG TAB PO SCH (09:56)
[2022-04-02] MEDS: HEPARIN 5,000 UNIT/1 ML VIAL SUB-Q SCH ×2 (09:56→22:07)
[2022-04-02] MEDS: FLUoxetine 20 MG CAP PO SCH (09:56)
[2022-04-02] MEDS: FAMOTIDINE 20 MG TAB PO SCH (09:56)
[2022-04-02] MEDS: SODIUM BICARBONATE 650 MG TAB PO SCH (09:56)
[2022-04-02] MEDS: MIDODRINE 10 MG TAB PO SCH ×3 (09:56→16:17)
[2022-04-02] MEDS: RIFAXIMIN 550 MG TAB PO SCH ×2 (09:56→22:06)
[2022-04-02] MEDS: THIAMINE 100 MG TAB PO SCH (09:56)
--- NOTE | 2022-04-02 12:27 | Progress Note ---
Assessment and Plan Brief history; 51 yo F with history of chronic bilateral lower leg ulcer and ESRD with dialysis on MWF who now present with generalized body aches for the last couple of days. Pt last dialysis was on Sunday so she missed session today. No fever or chills. No other modifying or associated factors. In the emergency room patient is found to have hemoglobin of 6.2 and hematocrit 18.8, she will going to transfuse 1 unit of packed red blood cells also will consult nephrology for hemodialysis, patient was cleared for discharge, does not have resources, does not have chair time at outpatient dialysis center, Patient was discharged, case management caregivers contacted daughter Demetria number of times to come and pick her up, discharge planning per case management. Patient already had discharge orders, case management considering from hospice 03/21; patient's hemoglobin was 6.2 Transfuse 1 unit of PRBC and check H&H\ 03/22; patient's hemoglobin this morning was 6.5 after 1 unit of PRBC transfused 2 additional PRBC closely monitor 03/23; received total 3 units PRBC Hb today 8.5 Possible discharge tomorrow if stable DC planning per case management -Patient received total 3 units PRBC Hb 8.4 03/26; patient awaiting to be picked up by the family Patient has been discharged 2 days Family aware 03/27; patient has been discharged 2 days ago, daughter is not coming and picking her up, ESRD on hemodialysis, no resources Patient is weak and frail, case management working on outpatient dialysis set up and placement 03/28: Pending outpatient dialysis set up and placement. Daughter not coming to pickers material handlers the patient. Patient also on does not have insurance and outpatient dialysis set up. Continue supportive care. 03/29: Continue supportive care, pending placement and outpatient dialysis set up. No acute event overnight. 03/30: Pending placement and outpatient HD set up. Continue supportive care. 03/31: pending placement 04/01: refused HD today, counselled patient, pending placement 04/02: taper librium, pending placement. Disposition; follow clinically, discharge planning per case management Assessment and plan: - Symptomatic anemia Hb 6.2-6.5-8.4 Patient received total 3 units hemoglobin improved to 8.4 Closely monitor H&H and transfuse additional PRBC --End stage renal disease on HD Patient missed hemodialysis. Nephrology following HD per schedule, blood transfusion during dialysis --Generalized body aches Tylenol 650 mg p.o. every 6 hours as needed. Resume home medication. We will monitor the patient closely and adjust -- Chronic ulcer of leg Is stable. 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 Pepcid 20 mg p.o. twice daily for GI prophylaxis. Patient is a full code -- Full CODE STATUS --DC planning; Per case management and family Daughter Demetria contact number [phone] Closely monitor the patient and adjust the management as needed Pending placement Subjective Date of service: 04/02/22 Principal diagnosis: ESRD Interval history: Patient seen and examined. Medical records and medication list reviewed. No acute event overnight noted by the RN. Patient getting hemodialysis as scheduled Pending outpatient dialysis set up and placement Objective - Exam Narrative Exam: GENERAL: White female appears way older than her stated age, lying on bed appeared to be in no discomfort. HEENT: Normocephalic. Atraumatic. No conjunctival congestion or icterus. Pat ient has moist mucous membranes. NECK: Supple. Trachea midline. CHEST/LUNGS: Clear to auscultated bilaterally, breathing nonlabored. No wheezes crackles or rhonchi. HEART/CARDIOVASCULAR: Regular in rate and rhythm. S1 and S2 positive. ABDOMEN: Abdomen is soft, nontender. Patient has normal bowel sounds. SKIN: There is no rash. Warm and dry. NEURO: No focal motor deficit. Follows command. MUSCULOSKELETAL: No joint effusion or tenderness. EXTRIMITY: No edema, no cyanosis or clubbing. PSYCH: Cooperative. - Constitutional Vitals: Vital Signs - 12hr 04/02/22 05:32 Temperature 97.9 F Pulse Rate 89 Respiratory 18 Rate Blood Pressure 92/53 [Left] O2 Sat by Pulse 99 Oximetry - Labs CBC & Chem 7: 04/01/22 04:16 04/01/22 04:16 Labs: Abnormal lab results 04/01/22 Range/Units 16:29 POC Glucose 125 H (70-105) mg/dL
[2022-04-02] MEDS: traZODone 50 MG TAB PO SCH (22:07)
[2022-04-03] MEDS: chlordiazePOXIDE 25 MG CAP PO SCH ×3 (05:40→23:21)
[2022-04-03] MEDS: MIDODRINE 10 MG TAB PO SCH ×3 (08:00→16:00)
[2022-04-03] MEDS: FLUoxetine 20 MG CAP PO SCH (09:10)
[2022-04-03] MEDS: FAMOTIDINE 20 MG TAB PO SCH (09:10)
[2022-04-03] MEDS: RIFAXIMIN 550 MG TAB PO SCH ×2 (09:10→23:25)
[2022-04-03] MEDS: FOLIC ACID 1 MG TAB PO SCH (09:10)
[2022-04-03] MEDS: HEPARIN 5,000 UNIT/1 ML VIAL SUB-Q SCH ×2 (09:10→23:26)
[2022-04-03] MEDS: LACTULOSE 20 GM/30 ML ORAL LIQD PO SCH (09:10)
[2022-04-03] MEDS: SODIUM BICARBONATE 650 MG TAB PO SCH (09:10)
[2022-04-03] MEDS: THIAMINE 100 MG TAB PO SCH (09:10)
--- NOTE | 2022-04-03 11:07 | Progress Note ---
Assessment and Plan - Patient Problems (1) End stage renal disease Current Visit: No Status: Chronic Plan to address problem: Cont HD on TTS schedule while inpatient. cont albumin support prn and on midodrine 10mg po tid to maintain MAP > 65mmHg. Patient does not have outpatient HD currently due to uninsured status. (2) Anemia Current Visit: Yes Status: Acute Qualifiers: Anemia type: unspecified type Qualified Code(s): D64.9 - Anemia, unspecified Plan to address problem: cont EPO with HD, transfuse with PRBC prn to target Hb > 7 (3) Chronic ulcer of leg Current Visit: Yes Status: Acute Qualifiers: Laterality: unspecified laterality Non-pressure ulcer stage: unspecified non-pressure ulcer stage Qualified Code(s): L97.909 - Non-pressure chronic ulcer of unspecified part of unspecified lower leg with unspecified severity (4) Hypotension Current Visit: Yes Status: Acute Plan to address problem: cont midodrine 10mg po tid. Albumin support prn for HD to maintain MAP > 65mmHg Subjective Date of service: 04/03/22 Principal diagnosis: ESRD Interval history: Patient is weak, lethargic, cont HD on TTS schedule with albumin support as needed Objective - Vital Signs Vital signs: Vital Signs - 12hr 04/03/22 04/03/22 05:46 08:55 Temperature 98.1 F Pulse Rate 88 Respiratory 18 Rate Blood Pressure 102/59 [Left] O2 Sat by Pulse 95 94 Oximetry - General Appearance General appearance: cachectic, chronically ill EENT: ATNC, mucous membranes moist Neck: no JVD Respiratory: Present: Decreased Breath Sounds Cardiology: regular, S1S2 Gastrointestinal: normoactive bowel sounds Integumentary: no rash, other (+ edema ) Neurologic: no focal deficit, CN 3-12 intact - Lab 04/01/22 04:16 04/01/22 04:16 Most recent lab results Calcium 8.6 mg/dL (8.4-10.2) 04/01/22 04:16 Medications & Allergies - Medications Allergies/Adverse Reactions: Allergies Penicillins Allergy (Verified 03/16/22 19:11) Rash Home Medications: Home Medications Medication Instructions Recorded Confirmed Last Taken Type Multivitamin Tab [Multiple Vitamin 1 each PO ONCE #30 tablet 04/27/16 03/22/22 Unknown Rx TAB (Theragran)] FLUoxetine [PROzac] 20 mg PO QDAY #30 capsule 03/14/22 03/22/22 Unknown Rx Folic Acid [Folvite] 1 mg PO QDAY #30 tablet 03/14/22 03/22/22 Unknown Rx Lactulose [Cephulac] 20 gm PO QDAY #30 oral.liqd 03/14/22 03/22/22 Unknown Rx Pantoprazole [Protonix TAB] 40 mg PO QDAC #30 tablet 03/14/22 03/22/22 Unknown Rx Rifaximin [Xifaxan] 550 mg PO BID #60 tablet 03/14/22 03/22/22 Unknown Rx Sodium Bicarbonate 1,300 mg PO TID #90 tablet 03/14/22 03/22/22 Unknown Rx Thiamine [Vitamin B-1] 100 mg PO QDAY #30 tablet 03/14/22 03/22/22 Unknown Rx chlordiazePOXIDE [Librium] 25 mg PO Q6H #10 capsule 03/14/22 03/22/22 Unknown Rx traZODone [Desyrel] 50 mg PO QHS #30 tab 03/14/22 03/22/22 Unknown Rx Ferrous Sulfate [Feosol 325 MG tab] 325 mg PO BID #60 tablet 03/24/22 Unknown Rx Midodrine [Proamatine] 10 mg PO TID@0800,1200,1600 #90 03/24/22 Unknown Rx tablet oxyCODONE /ACETAMINOPHEN [Percocet 1 tab PO QHS #7 03/24/22 Unknown Rx 5/325] Active Medications: Generic Name Dose Route Start Last Admin Trade Name Shaji PRN Reason Stop Dose Admin Acetaminophen 650 mg 03/21/22 02:28 04/02/22 00:48 Acetaminophen 325 Mg Tab PO 650 mg Q4H PRN Administration Pain MILD(1-3)/Fever >100.5/JOSEPH Albumin Human 25 gm 03/28/22 16:29 Albumin Human 25% (25 Gm/100 Ml) Inj IV PETRA PRN Hypotension Albuterol 2.5 mg 03/21/22 02:28 04/02/22 14:52 Albuterol 2.5 Mg/3 Ml Nebu IH 2.5 mg Q3HRT PRN Administration Shortness Of Breath Chlordiazepoxide HCl 12.5 mg 04/03/22 10:00 Chlordiazepoxide 25 Mg Cap PO BID FABIEN Epoetin Arnulfo-epbx 10,000 unit 03/23/22 13:00 04/01/22 14:40 Epoetin Arnulfo-Epbx 10,000 Unit/1 Ml Vial SUB-Q 10,000 unit PETRA PRN Administration dialysis Famotidine 20 mg 03/21/22 10:00 04/03/22 09:10 Famotidine 20 Mg Tab PO 20 mg QAM FABIEN Administration Fluoxetine HCl 20 mg 03/21/22 10:00 04/03/22 09:10 Fluoxetine 20 Mg Cap PO 20 mg QDAY FABIEN Administration Folic Acid 1 mg 03/21/22 10:00 04/03/22 09:10 Folic Acid 1 Mg Tab PO 1 mg QDAY FABIEN Administration Heparin Sodium (Porcine) 5,000 unit 03/21/22 22:00 04/03/22 09:10 Heparin 5,000 Unit/1 Ml Vial SUB-Q 5,000 unit Q12HR FABIEN Administration Sodium Chloride 100 mls @ 999 mls/hr 03/28/22 16:29 Nacl 0.9% IV PETRA PRN Hypotension Lactulose 20 gm 03/21/22 10:00 04/03/22 09:10 Lactulose 20 Gm/30 Ml Oral Liqd PO 20 gm QDAY FABIEN Administration Midodrine 10 mg 03/21/22 08:00 04/03/22 08:00 Midodrine 10 Mg Tab PO 10 mg TID@0800,1200,1600 FABIEN Administration Morphine Sulfate 4 mg 03/21/22 02:28 Morphine 4 Mg/1 Ml Inj IV Q4H PRN Pain , Severe (7-10) Morphine Sulfate 2 mg 03/21/22 02:28 03/24/22 18:56 Morphine 2 Mg/1 Ml Inj IV 2 mg Q4H PRN Administration Pain, Moderate (4-6) Ondansetron HCl 4 mg 03/21/22 02:28 Ondansetron 4 Mg/2 Ml Inj IV Q8H PRN Nausea And Vomiting Rifaximin 550 mg 03/21/22 10:00 04/03/22 09:10 Rifaximin 550 Mg Tab PO 550 mg BID FABIEN Administration Sodium Bicarbonate 650 mg 04/02/22 10:00 04/03/22 09:10 Sodium Bicarbonate 650 Mg Tab PO 650 mg DAILY FABIEN Administration Sodium Chloride 10 ml 03/21/22 10:00 04/03/22 09:29 Sodium Chloride 0.9% 10 Ml Flush Syringe IV 10 ml BID FABIEN Administration Sodium Chloride 10 ml 03/21/22 02:28 Sodium Chloride 0.9% 10 Ml Flush Syringe IV PRN PRN LINE FLUSH Thiamine HCl 100 mg 03/21/22 10:00 04/03/22 09:10 Thiamine 100 Mg Tab PO 100 mg QDAY FABIEN Administration Trazodone HCl 50 mg 03/21/22 22:00 04/02/22 22:07 Trazodone 50 Mg Tab PO 50 mg QHS FABIEN Administration
[2022-04-03] MEDS ORDERED: MORPHINE 2 MG/1 ML INJ IV PRN (13:43)
--- NOTE | 2022-04-03 15:31 | Progress Note ---
Assessment and Plan Brief history; 51 yo F with history of chronic bilateral lower leg ulcer and ESRD with dialysis on MWF who now present with generalized body aches for the last couple of days. Pt last dialysis was on Sunday so she missed session today. No fever or chills. No other modifying or associated factors. In the emergency room patient is found to have hemoglobin of 6.2 and hematocrit 18.8, she will going to transfuse 1 unit of packed red blood cells also will consult nephrology for hemodialysis, patient was cleared for discharge, does not have resources, does not have chair time at outpatient dialysis center, Patient was discharged, case management caregivers contacted daughter Demetria number of times to come and pick her up, discharge planning per case management. Patient already had discharge orders, case management considering from hospice 03/21; patient's hemoglobin was 6.2 Transfuse 1 unit of PRBC and check H&H\ 03/22; patient's hemoglobin this morning was 6.5 after 1 unit of PRBC transfused 2 additional PRBC closely monitor 03/23; received total 3 units PRBC Hb today 8.5 Possible discharge tomorrow if stable DC planning per case management -Patient received total 3 units PRBC Hb 8.4 03/26; patient awaiting to be picked up by the family Patient has been discharged 2 days Family aware 03/27; patient has been discharged 2 days ago, daughter is not coming and picking her up, ESRD on hemodialysis, no resources Patient is weak and frail, case management working on outpatient dialysis set up and placement 03/28: Pending outpatient dialysis set up and placement. Daughter not coming to pick out hand the patient. Patient also on does not have insurance and outpatient dialysis set up. Continue supportive care. 03/29: Continue supportive care, pending placement and outpatient dialysis set up. No acute event overnight. 03/30: Pending placement and outpatient HD set up. Continue supportive care. 03/31: pending placement 04/01: refused HD today, counselled patient, pending placement 04/02: taper librium, pending placement. 04/03 not sure why patient has been on Librium scheduled dose. Started to taper off since yesterday. Patient was getting Librium 25 mg every 8 hours -changed to 12.5 mg every 8 hours now on 12.5 mg twice daily. Change dose to 12.5 at bedtime tomorrow and then stop. Patient has been refusing hemodialysis and today she noted with significant abdominal distention with ascites and extensive bilateral lower extremity edema and swelling. Ordered for paracentesis and counseled her to be compliant with dialysis. Disposition; follow clinically, discharge planning per case management Assessment and plan: --Ascites with and generalized anasarca Due to volume overload since patient refusing dialysis Ordered for paracentesis, discussed compliant about hemodialysis Continue to follow - Symptomatic anemia Hb 6.2-6.5-8.4 Patient received total 3 units hemoglobin improved to 8.4 Closely monitor H&H and transfuse additional PRBC --End stage renal disease on HD Patient missed hemodialysis. Nephrology following HD per schedule, blood transfusion during dialysis --Generalized body aches Tylenol 650 mg p.o. every 6 hours as needed. Resume home medication. We will monitor the patient closely and adjust -- Chronic ulcer of leg Is stable. 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 Pepcid 20 mg p.o. twice daily for GI prophylaxis. Patient is a full code -- Full CODE STATUS --DC planning; Per case management and family Daughter Demetria contact number [phone] Closely monitor the patient and adjust the management as needed Pending placement Subjective Date of service: 04/03/22 Principal diagnosis: ESRD Objective - Exam Narrative Exam: GENERAL: White female appears way older than her stated age, lying on bed appeared to be in no discomfort. HEENT: Normocephalic. Atraumatic. No conjunctival congestion or icterus. Patient has moist mucous membranes. NECK: Supple. Trachea midline. CHEST/LUNGS: Clear to auscultated bilaterally, breathing nonlabored. No wheezes crackles or rhonchi. HEART/CARDIOVASCULAR: Regular in rate and rhythm. S1 and S2 positive. ABDOMEN: Abdomen is distended and mildly tender. Patient diminished bowel sounds. SKIN: There is no rash. Warm and dry. NEURO: No focal motor deficit. Follows command. MUSCULOSKELETAL: No joint effusion or tenderness. EXTRIMITY: No edema, no cyanosis or clubbing. PSYCH: Cooperative. - Constitutional Vitals: Vital Signs - 12hr 04/03/22 04/03/22 04/03/22 05:46 08:55 10:00 Temperature 98.1 F Pulse Rate 88 Respiratory 18 Rate Blood Pressure 102/59 [Left] O2 Sat by Pulse 95 94 97 Oximetry 04/03/22 13:47 Temperature 98 F Pulse Rate 76 Respiratory 18 Rate Blood Pressure 104/64 [Left] O2 Sat by Pulse 97 Oximetry - Labs CBC & Chem 7: 04/01/22 04:16 04/01/22 04:16
[2022-04-03] MEDS: traZODone 50 MG TAB PO SCH (23:21)
[2022-04-03] MEDS: ACETAMINOPHEN 325 MG TAB PO PRN (23:43)
[2022-04-04] MEDS: FOLIC ACID 1 MG TAB PO SCH (09:05)
[2022-04-04] MEDS: FAMOTIDINE 20 MG TAB PO SCH (09:05)
[2022-04-04] MEDS: MIDODRINE 10 MG TAB PO SCH ×3 (09:05→17:32)
[2022-04-04] MEDS: SODIUM BICARBONATE 650 MG TAB PO SCH (09:05)
[2022-04-04] MEDS: FLUoxetine 20 MG CAP PO SCH (09:06)
[2022-04-04] MEDS: THIAMINE 100 MG TAB PO SCH (09:06)
[2022-04-04] MEDS: chlordiazePOXIDE 25 MG CAP PO SCH ×2 (09:06→23:21)
[2022-04-04] MEDS: LACTULOSE 20 GM/30 ML ORAL LIQD PO SCH (09:06)
[2022-04-04] MEDS: RIFAXIMIN 550 MG TAB PO SCH ×2 (09:07→23:22)
--- NOTE | 2022-04-04 09:22 | Progress Note ---
Assessment and Plan Assessment and plan: 51 yo F with history of chronic bilateral lower leg ulcer and ESRD with dialysis on MWF who now present with generalized body aches for the last couple of days. Pt last dialysis was on Sunday so she missed session today. No fever or chills. No other modifying or associated factors. In the emergency room patient is found to have hemoglobin of 6.2 and hematocrit 18.8, she will going to transfuse 1 unit of packed red blood cells also will consult nephrology for hemodialysis, patient was cleared for discharge, does not have resources, does not have chair time at outpatient dialysis center, Patient was discharged, case management caregivers contacted daughter Demetria number of times to come and pick her up, discharge planning per case management. Patient already had discharge orders, case management considering from hospice 03/21; patient's hemoglobin was 6.2 Transfuse 1 unit of PRBC and check H&H\ 03/22; patient's hemoglobin this morning was 6.5 after 1 unit of PRBC transfused 2 additional PRBC closely monitor 03/23; received total 3 units PRBC Hb today 8.5 Possible discharge tomorrow if stable DC planning per case management -Patient received total 3 units PRBC Hb 8.4 03/26; patient awaiting to be picked up by the family Patient has been discharged 2 days Family aware 03/27; patient has been discharged 2 days ago, daughter is not coming and picking her up, ESRD on hemodialysis, no resources Patient is weak and frail, case management working on outpatient dialysis set up and placement 03/28: Pending outpatient dialysis set up and placement. Daughter not coming to sampler pickup the patient. Patient also on does not have insurance and outpatient dialysis set up. Continue supportive care. 03/29: Continue supportive care, pending placement and outpatient dialysis set up. No acute event overnight. 03/30: Pending placement and outpatient HD set up. Continue supportive care. 03/31: pending placement 04/01: refused HD today, counselled patient, pending placement 04/02: taper librium, pending placement. 04/03 not sure why patient has been on Librium scheduled dose. Started to taper off since yesterday. Patient was getting Librium 25 mg every 8 hours -changed to 12.5 mg every 8 hours now on 12.5 mg twice daily. Change dose to 12.5 at bedtime tomorrow and then stop. Patient has been refusing hemodialysis and today she noted with significant abdominal distention with ascites and extensive bilateral lower extremity edema and swelling. Ordered for paracentesis and counseled her to be compliant with dialysis. Disposition; follow clinically, discharge planning per case management discharge planning per case management Possible [facility] hosp[facility] if family agrees Patient refused abdominal paracentesis Assessment and plan: --Ascites with and generalized anasarca Due to volume overload since patient refusing dialysis Ordered for paracentesis, discussed compliant about hemodialysis Continue to follow - Symptomatic anemia Hb 6.2-6.5-8.4 Patient received total 3 units hemoglobin improved to 8.4 Closely monitor H&H and transfuse additional PRBC --End stage renal disease on HD Patient missed hemodialysis. Nephrology following HD per schedule, blood transfusion during dialysis --Generalized body aches Tylenol 650 mg p.o. every 6 hours as needed. Resume home medication. We will monitor the patient closely and adjust -- Chronic ulcer of leg Is stable. 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 Pepcid 20 mg p.o. twice daily for GI prophylaxis. Patient is a full code -- Full CODE STATUS --DC planning; Per case management and family Daughter Demetria contact number [phone] Closely monitor the patient and adjust the management as needed Pending placement History Interval history: Patient was scheduled for dialysis Patient is in dialysis unit No new overnight events reported by the nursing Vital signs reviewed Hospitalist Physical - Physical exam Narrative exam: Patient is in dialysis unit - Constitutional Vitals: Temp Pulse Resp BP Pulse Ox 98.9 F 83 18 106/59 96 04/03/22 23:27 04/03/22 23:27 04/03/22 23:27 04/03/22 23:27 04/04/22 08:38 General appearance: Present: no acute distress, well-nourished, obese, other (Refusing to eat, refusing to talk) - EENT Eyes: Present: PERRL, EOM intact - Neck Neck: Present: supple, normal ROM - Respiratory Respiratory effort: normal Respiratory: bilateral: diminished, rales, negative: rhonchi, wheezing - Cardiovascular Rhythm: regular Heart Sounds: Present: S1 & S2 - Extremities Extremities: no ischemia, No edema - Abdominal General gastrointestinal: soft, non-tender, non-distended, normal bowel sounds - Integumentary Integumentary: Present: clear, warm - Psychiatric Psychiatric: appropriate mood/affect, cooperative - Neurologic Neurologic: moves all extremities Results - Labs CBC & Chem 7: 04/01/22 04:16 04/01/22 04:16 Labs: Laboratory Last Values WBC 5.7 K/mm3 (4.5-11.0) 04/01/22 04:16 RBC 2.55 M/mm3 (3.65-5.03) L 04/01/22 04:16 Hgb 8.5 gm/dl (10.1-14.3) L 04/01/22 04:16 Hct 25.4 % (30.3-42.9) L 04/01/22 04:16 MCV 100 fl (79-97) H 04/01/22 04:16 MCH 33 pg (28-32) H 04/01/22 04:16 MCHC 33 % (30-34) 04/01/22 04:16 RDW 25.1 % (13.2-15.2) H 04/01/22 04:16 Plt Count 100 K/mm3 (140-440) L 04/01/22 04:16 Baso % (Auto) [employer] L[employer] Manager 03/21/22 00:09 Add Manual Diff Complete 04/01/22 04:16 Total Counted 100 04/01/22 04:16 Seg Neuts % (Manual) 67.0 % (40.0-70.0) 04/01/22 04:16 Band Neutrophils % 0 % 04/01/22 04:16 Lymphocytes % (Manual) 19.0 % (13.4-35.0) 04/01/22 04:16 Reactive Lymphs % (Man) 0 % 04/01/22 04:16 Monocytes % (Manual) 11.0 % (0.0-7.3) H 04/01/22 04:16 Eosinophils % (Manual) 2.0 % (0.0-4.3) 04/01/22 04:16 Basophils % (Manual) 1.0 % (0.0-1.8) 04/01/22 04:16 Metamyelocytes % 0 % 04/01/22 04:16 Myelocytes % 0 % 04/01/22 04:16 Promyelocytes % 0 % 04/01/22 04:16 Blast Cells % 0 % 04/01/22 04:16 Nucleated RBC % Not Reportable 04/01/22 04:16 Seg Neutrophils # Man 3.8 K/mm3 (1.8-7.7) 04/01/22 04:16 Band Neutrophils # 0.0 K/mm3 04/01/22 04:16 Lymphocytes # (Manual) 1.1 K/mm3 (1.2-5.4) L 04/01/22 04:16 Abs React Lymphs (Man) 0.0 K/mm3 04/01/22 04:16 Monocytes # (Manual) 0.6 K/mm3 (0.0-0.8) 04/01/22 04:16 Eosinophils # (Manual) 0.1 K/mm3 (0.0-0.4) 04/01/22 04:16 Basophils # (Manual) 0.1 K/mm3 (0.0-0.1) 04/01/22 04:16 Metamyelocytes # 0.0 K/mm3 04/01/22 04:16 Myelocytes # 0.0 K/mm3 04/01/22 04:16 Promyelocytes # 0.0 K/mm3 04/01/22 04:16 Blast Cells # 0.0 K/mm3 04/01/22 04:16 WBC Morphology Not Reportable 04/01/22 04:16 Hypersegmented Neuts Not Reportable 04/01/22 04:16 Hyposegmented Neuts Not Reportable 04/01/22 04:16 Hypogranular Neuts Not Reportable 04/01/22 04:16 Smudge Cells Few 04/01/22 04:16 Toxic Granulation Not Reportable 04/01/22 04:16 Toxic Vacuolation Not Reportable 04/01/22 04:16 Dohle Bodies Not Reportable 04/01/22 04:16 Pelger-Huet Anomaly Not Reportable 04/01/22 04:16 Kevin Rods Not Reportable 04/01/22 04:16 Platelet Estimate Consistent w auto 04/01/22 04:16 Clumped Platelets Not Reportable 04/01/22 04:16 Plt Clumps, EDTA Not Reportable 04/01/22 04:16 Large Platelets Not Reportable 04/01/22 04:16 Giant Platelets Not Reportable 04/01/22 04:16 Platelet Satelliting Not Reportable 04/01/22 04:16 Plt Morphology Comment Not Reportable 04/01/22 04:16 RBC Morphology Not Reportable 04/01/22 04:16 Dimorphic RBCs Not Reportable 04/01/22 04:16 Polychromasia Not Reportable 04/01/22 04:16 Hypochromasia Not Reportable 04/01/22 04:16 Poikilocytosis Not Reportable 04/01/22 04:16 Anisocytosis 2+ 04/01/22 04:16 Microcytosis Not Reportable 04/01/22 04:16 Macrocytosis Not Reportable 04/01/22 04:16 Spherocytes Not Reportable 04/01/22 04:16 Pappenheimer Bodies Not Reportable 04/01/22 04:16 Sickle Cells Not Reportable 04/01/22 04:16 Target Cells Not Reportable 04/01/22 04:16 Tear Drop Cells Not Reportable 04/01/22 04:16 Ovalocytes Not Reportable 04/01/22 04:16 Stomatocytes Rare 03/21/22 10:42 Helmet Cells Not Reportable 04/01/22 04:16 Johnson-Valinda Bodies Not Reportable 04/01/22 04:16 [place] Rings Not Reportable 04/01/22 04:16 [place]er Cells Not Reportable 04/01/22 04:16 Bite Cells Not Reportable 04/01/22 04:16 Crenated Cell Not Reportable 04/01/22 04:16 Elliptocytes Not Reportable 04/01/22 04:16 Acanthocytes (Spur) Not Reportable 04/01/22 04:16 Rouleaux Not Reportable 04/01/22 04:16 Hemoglobin C Crystals Not Reportable 04/01/22 04:16 Schistocytes Not Reportable 04/01/22 04:16 Malaria parasites Not Reportable 04/01/22 04:16 Kiran Bodies Not Reportable 04/01/22 04:16 Hem Pathologist Commnt No 04/01/22 04:16 Sodium 134 mmol/L (137-145) L 04/01/22 04:16 Potassium 3.3 mmol/L (3.6-5.0) L 04/01/22 04:16 Chloride 96.7 mmol/L (98-107) L 04/01/22 04:16 Carbon Dioxide 32 mmol/L (22-30) H 04/01/22 04:16 Anion Gap 9 mmol/L 04/01/22 04:16 BUN 25 mg/dL (7-17) H 04/01/22 04:16 Creatinine 3.2 mg/dL (0.6-1.2) H 04/01/22 04:16 Estimated GFR 15 ml/min 04/01/22 04:16 BUN/Creatinine Ratio 8 % 04/01/22 04:16 Glucose 82 mg/dL (65-100) 04/01/22 04:16 POC Glucose 125 mg/dL (70-105) H 04/01/22 16:29 Lactic Acid 1.40 mmol/L (0.7-2.0) 03/21/22 00:09 Calcium 8.6 mg/dL (8.4-10.2) 04/01/22 04:16 Total Bilirubin 2.40 mg/dL (0.1-1.2) H 03/21/22 00:09 AST 63 units/L (5-40) H 03/21/22 00:09 ALT 28 units/L (7-56) 03/21/22 00:09 Alkaline Phosphatase 145 units/L (35-129) H 03/21/22 00:09 Total Protein 6.2 g/dL (6.3-8.2) L 03/21/22 00:09 Albumin 2.1 g/dL (3.9-5) L 03/21/22 00:09 Albumin/Globulin Ratio 0.5 % 03/21/22 00:09 Coronavirus (PCR) Negative (Negative) 03/23/22 Unknown Hepatitis A IgM Ab Non-reactive (NonReactive) 03/23/22 11:00 Hep Bs Antigen Non-reactive (Negative) 03/23/22 11:00 Hep B Core IgM Ab Non-reactive (NonReactive) 03/23/22 11:00 Hepatitis C Antibody Non-reactive (NonReactive) 03/23/22 11:00 Blood Type O POSITIVE 03/21/22 05:35 Antibody Screen Negative 03/21/22 05:35 Crossmatch See Detail 03/21/22 05:35 Senior/IV: Voiding Method Incontinent Active Medications - Current Medications Current Medications: Generic Name Dose Route Start Last Admin Trade Name Freq PRN Reason Stop Dose Admin Acetaminophen 650 mg 03/21/22 02:28 04/03/22 23:43 Acetaminophen 325 Mg Tab PO 650 mg Q4H PRN Administration Pain MILD(1-3)/Fever >100.5/JOSEPH Hydrocodone Bitart/Acetaminophen 1 each 04/03/22 13:43 Hydrocodone/Acetaminophen 5-325 Mg Tab PO Q6H PRN Pain, Moderate (4-6) Albumin Human 25 gm 03/28/22 16:29 Albumin Human 25% (25 Gm/100 Ml) Inj IV PETRA PRN Hypotension Albuterol 2.5 mg 03/21/22 02:28 04/02/22 14:52 Albuterol 2.5 Mg/3 Ml Nebu IH 2.5 mg Q3HRT PRN Administration Shortness Of Breath Chlordiazepoxide HCl 12.5 mg 04/03/22 10:00 04/04/22 09:06 Chlordiazepoxide 25 Mg Cap PO 12.5 mg BID FABIEN Administration Epoetin Arnulfo-epbx 10,000 unit 03/23/22 13:00 04/01/22 14:40 Epoetin Arnulfo-Epbx 10,000 Unit/1 Ml Vial SUB-Q 10,000 unit PETRA PRN Administration dialysis Famotidine 20 mg 03/21/22 10:00 04/04/22 09:05 Famotidine 20 Mg Tab PO 20 mg QAM FABIEN Administration Fluoxetine HCl 20 mg 03/21/22 10:00 04/04/22 09:06 Fluoxetine 20 Mg Cap PO 20 mg QDAY FABIEN Administration Folic Acid 1 mg 03/21/22 10:00 04/04/22 09:05 Folic Acid 1 Mg Tab PO 1 mg QDAY FABIEN Administration Heparin Sodium (Porcine) 5,000 unit 03/21/22 22:00 04/03/22 23:26 Heparin 5,000 Unit/1 Ml Vial SUB-Q 5,000 unit Q12HR FABIEN Administration Sodium Chloride 100 mls @ 999 mls/hr 03/28/22 16:29 Nacl 0.9% IV PETRA PRN Hypotension Lactulose 20 gm 03/21/22 10:00 04/04/22 09:06 Lactulose 20 Gm/30 Ml Oral Liqd PO 20 gm QDAY FABIEN Administration Midodrine 10 mg 03/21/22 08:00 04/04/22 09:05 Midodrine 10 Mg Tab PO 10 mg TID@0800,1200,1600 FABIEN Administration Morphine Sulfate 1 mg 04/03/22 13:43 Morphine 2 Mg/1 Ml Inj IV Q4H PRN Pain , Severe (7-10) Ondansetron HCl 4 mg 03/21/22 02:28 Ondansetron 4 Mg/2 Ml Inj IV Q8H PRN Nausea And Vomiting Rifaximin 550 mg 03/21/22 10:00 04/04/22 09:07 Rifaximin 550 Mg Tab PO 550 mg BID FABIEN Administration Sodium Bicarbonate 650 mg 04/02/22 10:00 04/04/22 09:05 Sodium Bicarbonate 650 Mg Tab PO 650 mg DAILY FABIEN Administration Sodium Chloride 10 ml 03/21/22 10:00 04/04/22 09:06 Sodium Chloride 0.9% 10 Ml Flush Syringe IV 10 ml BID FABIEN Administration Sodium Chloride 10 ml 03/21/22 02:28 Sodium Chloride 0.9% 10 Ml Flush Syringe IV PRN PRN LINE FLUSH Thiamine HCl 100 mg 03/21/22 10:00 04/04/22 09:06 Thiamine 100 Mg Tab PO 100 mg QDAY FABIEN Administration Trazodone HCl 50 mg 03/21/22 22:00 04/03/22 23:21 Trazodone 50 Mg Tab PO 50 mg QHS FABIEN Administration Nutrition/Malnutrition Assess - Dietary Evaluation Nutrition/Malnutrition Findings: Nutrition Notes Start: 03/22/22 16: 46 Freq: Status: Active Protocol: Document 03/29/22 11:24 JOSELUIS (Rec: 03/29/22 11:48 [email or web address] [id number]) Nutrition Notes Initial or Follow up Reassessment Current Diagnosis CKD (stage V CKD),Decubitus( Pressure Ulcer),Hypertension, Malnutrition Other Pertinent Diagnosis ESRD+HD, Bilateral-LE & Sacral Ulcers, Anemia, EtOH Abuse, Liver Cancer. Current Diet Renal Diet (since B 03/21), D Suppl (from D 03/22). Labs/Tests 03/29: Na 135, K 3.5, Cl 96.2, CO2 33, BUN 27, Crea 3.5, Glu 106, Ca 8.1. Pertinent Medications 03/29: Folic acid, Thiamine, others nutritionally unremarkable. Height 5 ft 6 in Weight 103.9 kg [place] Body Weight (kg) 59.09 BMI 36.9 Weight change and time frame No body weight change reported in 1 week. Weight Status Morbidly Obese Subjective/Other Information RD consult for routine F/U on dietary advancement. Diet continues as preescribed, Pt's PO intake of meals has been Negligible (25%), according to ADL and RN notes. RN note on 03/28/22 18:40: pt. back fr. Dialysis a/ox2. Perm cath rt. chest dry and intact . set up lunch tray pt. ate few bites. has poor appetite. - END OF NOTE. Pt is on Nasal Cannula, O2 saturation @ 96%, according to Physical Assessment History notes. Pt continues with incontinence , according to Physical Assessment History notes. Pt has been discharged since 03/24, but no family member has come to pick Pt up, CM keeps calling, according to Progress notes. Percent of energy/protein needs met: Prescribed Renal Diet provides for energy/protein needs (2, 072 Kcal/77 g) during LOS; additionally, Dietary Supplements will compensate for possible poor or insufficient PO intake of meals and support wound healing processes with 1,040 Kcal and 43 g of protein. Burn Absent Trauma Absent GI Symptoms Other Food Allergy No Skin Integrity/Comment Bilateral-LE & Sacral Ulcers. Current % PO Negligible Minimum of two criteria No Fluid Accumulation N/A Reduced Shank Pinner Strength N/A (non-severe) Protein-Calorie Malnutrition N\A #2 Nutrition Diagnosis Inadequate protein-energy intake Comments: Change Nutrition Diagnosis for precision. Diet continues as preescribed, Pt's PO intake of meals has been Negligible (25%), according to ADL and RN notes. Diagnosis Progress(for reassessment Continues documentation) #1 Nutrition Diagnosis Increased nutrient needs ( specify in comment below) Comments: Protein to support wound healing processes. Diagnosis Progress(for reassessment Continues documentation) Is patient on ventilator? No Is Patient Ambulatory and/or Out of Bed No REE-([place]-confined to bed) 2008.548 Kcal/Kg value to use for calculation 16 Approximate Energy Requirements Using 1662 kcal/Kg Calculation Used for Recommendations Kcal/kg Additional Notes Protein: >1.2 g/Kg AdjBW; >98 g/day. Fluids: 1 ml/Kcal, or as per MD. Nutrition Intervention Change Diet Order: Continue Renal Diet. Add Supplement/Snack (indicate name/kcal Continue 8 fl oz Nepro w/ /protein ) CARBSTEADY; BID. Continue 28.8 g pkt Isidoro; BID . Provides kCal: 1,040 Provides Protein (gm) 43 Goal #1 Support, through dietary supplementation, wound healing processes during LOS. Goal #2 Compensate, through dietary supplementation, for possible poor or insufficient PO intake of meals during LOS. Follow-Up By: 04/05/22 Additional Comments Continue monitoring food tolerance, %PO intake of meals , dietary supplements, and BM.
[2022-04-04] MEDS ORDERED: SODIUM CHLORIDE 0.9% 100 ML IV PRN (09:59)
--- NOTE | 2022-04-04 10:26 | Progress Note ---
Assessment and Plan - Patient Problems (1) End stage renal disease Current Visit: No Status: Chronic Plan to address problem: Cont HD on TTS schedule while inpatient. cont albumin support prn and on midodrine 10mg po tid to maintain MAP > 65mmHg. using 4 K bath to correct hypokalemia. Patient does not have outpatient HD currently due to uninsured sta tus. (2) Anemia Current Visit: Yes Status: Acute Qualifiers: Anemia type: unspecified type Qualified Code(s): D64.9 - Anemia, unspecified Plan to address problem: cont EPO with HD, transfuse with PRBC prn to target Hb > 7 (3) Chronic ulcer of leg Current Visit: Yes Status: Acute Qualifiers: Laterality: unspecified laterality Non-pressure ulcer stage: unspecified non-pressure ulcer stage Qualified Code(s): L97.909 - Non-pressure chronic ulcer of unspecified part of unspecified lower leg with unspecified severity (4) Hypotension Current Visit: Yes Status: Acute Plan to address problem: cont midodrine 10mg po tid. Albumin support prn for HD to maintain MAP > 65mmHg Subjective Date of service: 04/04/22 Principal diagnosis: ESRD Interval history: Patient is weak, lethargic, cont HD on TTS schedule with albumin support as needed Objective - Vital Signs Vital signs: Vital Signs - 12hr 04/03/22 04/04/22 04/04/22 23:27 08:38 09:04 Temperature 98.9 F 98.2 F Pulse Rate 83 94 H Respiratory 18 17 Rate Blood Pressure 91/59 Blood Pressure 106/59 [Left] O2 Sat by Pulse 95 96 Oximetry O2 Sat by Pulse 94 Oximetry [ Anterior Bilateral Throughout] 04/04/22 04/04/22 04/04/22 09:11 09:15 09:30 Temperature Pulse Rate 91 H 90 89 Respiratory Rate Blood Pressure 90/55 90/54 84/48 Blood Pressure [Left] O2 Sat by Pulse Oximetry O2 Sat by Pulse Oximetry [ Anterior Bilateral Throughout] 04/04/22 04/04/22 09:45 10:00 Temperature Pulse Rate 92 H 89 Respiratory Rate Blood Pressure 95/49 84/47 Blood Pressure [Left] O2 Sat by Pulse 97 Oximetry O2 Sat by Pulse Oximetry [ Anterior Bilateral Throughout] - General Appearance General appearance: well-developed EENT: ATNC, PERRL, mucous membranes moist Neck: no JVD Respiratory: Present: Clear to Ascultation Cardiology: regular, S1S2 Gastrointestinal: normoactive bowel sounds Integumentary: no rash Neurologic: no focal deficit, CN 3-12 intact Psychiatric: mood/affect appropriate - Lab 04/01/22 04:16 04/01/22 04:16 Most recent lab results Calcium 8.6 mg/dL (8.4-10.2) 04/01/22 04:16 Medications & Allergies - Medications Allergies/Adverse Reactions: Allergies Penicillins Allergy (Verified 03/16/22 19:11) Rash Home Medications: Home Medications Medication Instructions Recorded Confirmed Last Taken Type Multivitamin Tab [Multiple Vitamin 1 each PO ONCE #30 tablet 04/27/16 03/22/22 Unknown Rx TAB (Theragran)] FLUoxetine [PROzac] 20 mg PO QDAY #30 capsule 03/14/22 03/22/22 Unknown Rx Folic Acid [Folvite] 1 mg PO QDAY #30 tablet 03/14/22 03/22/22 Unknown Rx Lactulose [Cephulac] 20 gm PO QDAY #30 oral.liqd 03/14/22 03/22/22 Unknown Rx Pantoprazole [Protonix TAB] 40 mg PO QDAC #30 tablet 03/14/22 03/22/22 Unknown Rx Rifaximin [Xifaxan] 550 mg PO BID #60 tablet 03/14/22 03/22/22 Unknown Rx Sodium Bicarbonate 1,300 mg PO TID #90 tablet 03/14/22 03/22/22 Unknown Rx Thiamine [Vitamin B-1] 100 mg PO QDAY #30 tablet 03/14/22 03/22/22 Unknown Rx chlordiazePOXIDE [Librium] 25 mg PO Q6H #10 capsule 03/14/22 03/22/22 Unknown Rx traZODone [Desyrel] 50 mg PO QHS #30 tab 03/14/22 03/22/22 Unknown Rx Ferrous Sulfate [Feosol 325 MG tab] 325 mg PO BID #60 tablet 03/24/22 Unknown Rx Midodrine [Proamatine] 10 mg PO TID@0800,1200,1600 #90 03/24/22 Unknown Rx tablet oxyCODONE /ACETAMINOPHEN [Percocet 1 tab PO QHS #7 03/24/22 Unknown Rx 5/325] Active Medications: Generic Name Dose Route Start Last Admin Trade Name Freq PRN Reason Stop Dose Admin Acetaminophen 650 mg 03/21/22 02:28 04/03/22 23:43 Acetaminophen 325 Mg Tab PO 650 mg Q4H PRN Administration Pain MILD(1-3)/Fever >100.5/JOSEPH Hydrocodone Bitart/Acetaminophen 1 each 04/03/22 13:43 Hydrocodone/Acetaminophen 5-325 Mg Tab PO Q6H PRN Pain, Moderate (4-6) Albumin Human 25 gm 03/28/22 16:29 Albumin Human 25% (25 Gm/100 Ml) Inj IV PETRA PRN Hypotension Albuterol 2.5 mg 03/21/22 02:28 04/02/22 14:52 Albuterol 2.5 Mg/3 Ml Nebu IH 2.5 mg Q3HRT PRN Administration Shortness Of Breath Chlordiazepoxide HCl 12.5 mg 04/03/22 10:00 04/04/22 09:06 Chlordiazepoxide 25 Mg Cap PO 12.5 mg BID FABIEN Administration Epoetin Arnulfo-epbx 10,000 unit 03/23/22 13:00 04/01/22 14:40 Epoetin Arnulfo-Epbx 10,000 Unit/1 Ml Vial SUB-Q 10,000 unit PETRA PRN Administration dialysis Famotidine 20 mg 03/21/22 10:00 04/04/22 09:05 Famotidine 20 Mg Tab PO 20 mg QAM FABIEN Administration Fluoxetine HCl 20 mg 03/21/22 10:00 04/04/22 09:06 Fluoxetine 20 Mg Cap PO 20 mg QDAY FABIEN Administration Folic Acid 1 mg 03/21/22 10:00 04/04/22 09:05 Folic Acid 1 Mg Tab PO 1 mg QDAY FABIEN Administration Heparin Sodium (Porcine) 5,000 unit 03/21/22 22:00 04/03/22 23:26 Heparin 5,000 Unit/1 Ml Vial SUB-Q 5,000 unit Q12HR FABIEN Administration Sodium Chloride 100 mls @ 999 mls/hr 04/04/22 09:59 Nacl 0.9% IV PETRA PRN Hypotension Lactulose 20 gm 03/21/22 10:00 04/04/22 09:06 Lactulose 20 Gm/30 Ml Oral Liqd PO 20 gm QDAY FABIEN Administration Midodrine 10 mg 03/21/22 08:00 04/04/22 09:05 Midodrine 10 Mg Tab PO 10 mg TID@0800,1200,1600 FABIEN Administration Morphine Sulfate 1 mg 04/03/22 13:43 Morphine 2 Mg/1 Ml Inj IV Q4H PRN Pain , Severe (7-10) Ondansetron HCl 4 mg 03/21/22 02:28 Ondansetron 4 Mg/2 Ml Inj IV Q8H PRN Nausea And Vomiting Rifaximin 550 mg 03/21/22 10:00 04/04/22 09:07 Rifaximin 550 Mg Tab PO 550 mg BID FABIEN Administration Sodium Bicarbonate 650 mg 04/02/22 10:00 04/04/22 09:05 Sodium Bicarbonate 650 Mg Tab PO 650 mg DAILY FABIEN Administration Sodium Chloride 10 ml 03/21/22 10:00 04/04/22 09:06 Sodium Chloride 0.9% 10 Ml Flush Syringe IV 10 ml BID FABIEN Administration Sodium Chloride 10 ml 03/21/22 02:28 Sodium Chloride 0.9% 10 Ml Flush Syringe IV PRN PRN LINE FLUSH Thiamine HCl 100 mg 03/21/22 10:00 04/04/22 09:06 Thiamine 100 Mg Tab PO 100 mg QDAY FABIEN Administration Trazodone HCl 50 mg 03/21/22 22:00 04/03/22 23:21 Trazodone 50 Mg Tab PO 50 mg QHS FABIEN Administration
[2022-04-04] MEDS: EPOETIN ALFA-EPBX 10,000 UNIT/1 ML VIAL SUB-Q PRN (12:11)
[2022-04-04] MEDS: HEPARIN 5,000 UNIT/1 ML VIAL SUB-Q SCH ×2 (14:30→23:22)
[2022-04-04] MEDS: traZODone 50 MG TAB PO SCH (23:21)
[2022-04-04] MEDS: HYDROcodone/ACETAMINOPHEN 5-325 MG TAB PO PRN (23:37)
[2022-04-05] MEDS: SODIUM BICARBONATE 650 MG TAB PO SCH (09:01)
[2022-04-05] MEDS: THIAMINE 100 MG TAB PO SCH (09:01)
[2022-04-05] MEDS: chlordiazePOXIDE 25 MG CAP PO SCH ×2 (09:02→21:49)
[2022-04-05] MEDS: RIFAXIMIN 550 MG TAB PO SCH ×2 (09:02→21:49)
[2022-04-05] MEDS: FLUoxetine 20 MG CAP PO SCH (09:02)
[2022-04-05] MEDS: FOLIC ACID 1 MG TAB PO SCH (09:02)
[2022-04-05] MEDS: FAMOTIDINE 20 MG TAB PO SCH (09:02)
[2022-04-05] MEDS: LACTULOSE 20 GM/30 ML ORAL LIQD PO SCH (09:02)
[2022-04-05] MEDS: MIDODRINE 10 MG TAB PO SCH ×3 (09:04→17:54)
[2022-04-05] MEDS: HEPARIN 5,000 UNIT/1 ML VIAL SUB-Q SCH ×2 (09:05→21:50)
--- NOTE | 2022-04-05 09:30 | Progress Note ---
Assessment and Plan Assessment and plan: 51 yo F with history of chronic bilateral lower leg ulcer and ESRD with dialysis on MWF who now present with generalized body aches for the last couple of days. Pt last dialysis was on Sunday so she missed session today. No fever or chills. No other modifying or associated factors. In the emergency room patient is found to have hemoglobin of 6.2 and hematocrit 18.8, she will going to transfuse 1 unit of packed red blood cells also will consult nephrology for hemodialysis, patient was cleared for discharge, does not have resources, does not have chair time at outpatient dialysis center, Patient was discharged, case management caregivers contacted daughter Demetria number of times to come and pick her up, discharge planning per case management. Patient already had discharge orders, case management considering from hospice 03/21; patient's hemoglobin was 6.2 Transfuse 1 unit of PRBC and check H&H\ 03/22; patient's hemoglobin this morning was 6.5 after 1 unit of PRBC transfused 2 additional PRBC closely monitor 03/23; received total 3 units PRBC Hb today 8.5 Possible discharge tomorrow if stable DC planning per case management -Patient received total 3 units PRBC Hb 8.4 03/26; patient awaiting to be picked up by the family Patient has been discharged 2 days Family aware 03/27; patient has been discharged 2 days ago, daughter is not coming and picking her up, ESRD on hemodialysis, no resources Patient is weak and frail, case management working on outpatient dialysis set up and placement 03/28: Pending outpatient dialysis set up and placement. Daughter not coming to cook pickled meat the patient. Patient also on does not have insurance and outpatient dialysis set up. Continue supportive care. 03/29: Continue supportive care, pending placement and outpatient dialysis set up. No acute event overnight. 03/30: Pending placement and outpatient HD set up. Continue supportive care. 03/31: pending placement 04/01: refused HD today, counselled patient, pending placement 04/02: taper librium, pending placement. 04/03 not sure why patient has been on Librium scheduled dose. Started to taper off since yesterday. Patient was getting Librium 25 mg every 8 hours -changed to 12.5 mg every 8 hours now on 12.5 mg twice daily. Change dose to 12.5 at bedtime tomorrow and then stop. Patient has been refusing hemodialysis and today she noted with significant abdominal distention with ascites and extensive bilateral lower extremity edema and swelling. Ordered for paracentesis and counseled her to be compliant with dialysis. Disposition; follow clinically, discharge planning per case management discharge planning per case management Possible [facility] if family agrees Patient refused abdominal paracentesis Assessment and plan: --Ascites with and generalized anasarca Due to volume overload since patient refusing dialysis Ordered for paracentesis, discussed compliant about hemodialysis Continue to follow - Symptomatic anemia Hb 6.2-6.5-8.4 Patient received total 3 units hemoglobin improved to 8.4 Closely monitor H&H and transfuse additional PRBC --End stage renal disease on HD Patient missed hemodialysis. Nephrology following HD per schedule, blood transfusion during dialysis --Generalized body aches Tylenol 650 mg p.o. every 6 hours as needed. Resume home medication. We will monitor the patient closely and adjust -- Chronic ulcer of leg Is stable. 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 Pepcid 20 mg p.o. twice daily for GI prophylaxis. Patient is a full code -- Full CODE STATUS --DC planning; Per case management and family Daughter Demetria contact number [phone] Closely monitor the patient and adjust the management as needed Pending placement History Interval history: I have seen and examined the patient at the bedside Patient's chart and medications reviewed Patient is alert and awake Responding to simple questions No new complaints per nursing staff Vital signs noted Hospitalist Physical - Constitutional Vitals: Temp Pulse Resp BP Pulse Ox 98.5 F 96 H 18 102/55 93 04/04/22 23:15 04/04/22 23:15 04/04/22 23:15 04/04/22 23:15 04/05/22 09:18 General appearance: Present: no acute distress, well-nourished, obese, other (Refusing to eat, refusing to talk) - EENT Eyes: Present: PERRL, EOM intact - Neck Neck: Present: supple, normal ROM - Respiratory Respiratory effort: normal Respiratory: bilateral: diminished, negative: rales, rhonchi, wheezing - Cardiovascular Rhythm: regular Heart Sounds: Present: S1 & S2 - Extremities Extremities: no ischemia, No edema - Abdominal General gastrointestinal: soft, non-tender, non-distended, normal bowel sounds - Integumentary Integumentary: Present: clear, warm - Psychiatric Psychiatric: appropriate mood/affect, cooperative - Neurologic Neurologic: moves all extremities Results - Labs CBC & Chem 7: 04/01/22 04:16 04/01/22 04:16 Labs: Laboratory Last Values WBC 5.7 K/mm3 (4.5-11.0) 04/01/22 04:16 RBC 2.55 M/mm3 (3.65-5.03) L 04/01/22 04:16 Hgb 8.5 gm/dl (10.1-14.3) L 04/01/22 04:16 Hct 25.4 % (30.3-42.9) L 04/01/22 04:16 MCV 100 fl (79-97) H 04/01/22 04:16 MCH 33 pg (28-32) H 04/01/22 04:16 MCHC 33 % (30-34) 04/01/22 04:16 RDW 25.1 % (13.2-15.2) H 04/01/22 04:16 Plt Count 100 K/mm3 (140-440) L 04/01/22 04:16 Baso % (Auto) Data Processing Operator 03/21/22 00:09 Add Manual Diff Complete 04/01/22 04:16 Total Counted 100 04/01/22 04:16 Seg Neuts % (Manual) 67.0 % (40.0-70.0) 04/01/22 04:16 Band Neutrophils % 0 % 04/01/22 04:16 Lymphocytes % (Manual) 19.0 % (13.4-35.0) 04/01/22 04:16 Reactive Lymphs % (Man) 0 % 04/01/22 04:16 Monocytes % (Manual) 11.0 % (0.0-7.3) H 04/01/22 04:16 Eosinophils % (Manual) 2.0 % (0.0-4.3) 04/01/22 04:16 Basophils % (Manual) 1.0 % (0.0-1.8) 04/01/22 04:16 Metamyelocytes % 0 % 04/01/22 04:16 Myelocytes % 0 % 04/01/22 04:16 Promyelocytes % 0 % 04/01/22 04:16 Blast Cells % 0 % 04/01/22 04:16 Nucleated RBC % Not Reportable 04/01/22 04:16 Seg Neutrophils # Man 3.8 K/mm3 (1.8-7.7) 04/01/22 04:16 Band Neutrophils # 0.0 K/mm3 04/01/22 04:16 Lymphocytes # (Manual) 1.1 K/mm3 (1.2-5.4) L 04/01/22 04:16 Abs React Lymphs (Man) 0.0 K/mm3 04/01/22 04:16 Monocytes # (Manual) 0.6 K/mm3 (0.0-0.8) 04/01/22 04:16 Eosinophils # (Manual) 0.1 K/mm3 (0.0-0.4) 04/01/22 04:16 Basophils # (Manual) 0.1 K/mm3 (0.0-0.1) 04/01/22 04:16 Metamyelocytes # 0.0 K/mm3 04/01/22 04:16 Myelocytes # 0.0 K/mm3 04/01/22 04:16 Promyelocytes # 0.0 K/mm3 04/01/22 04:16 Blast Cells # 0.0 K/mm3 04/01/22 04:16 WBC Morphology Not Reportable 04/01/22 04:16 Hypersegmented Neuts Not Reportable 04/01/22 04:16 Hyposegmented Neuts Not Reportable 04/01/22 04:16 Hypogranular Neuts Not Reportable 04/01/22 04:16 Smudge Cells Few 04/01/22 04:16 Toxic Granulation Not Reportable 04/01/22 04:16 Toxic Vacuolation Not Reportable 04/01/22 04:16 Dohle Bodies Not Reportable 04/01/22 04:16 Pelger-Huet Anomaly Not Reportable 04/01/22 04:16 Kevin Rods Not Reportable 04/01/22 04:16 Platelet Estimate Consistent w auto 04/01/22 04:16 Clumped Platelets Not Reportable 04/01/22 04:16 Plt Clumps, EDTA Not Reportable 04/01/22 04:16 Large Platelets Not Reportable 04/01/22 04:16 Giant Platelets Not Reportable 04/01/22 04:16 Platelet Satelliting Not Reportable 04/01/22 04:16 Plt Morphology Comment Not Reportable 04/01/22 04:16 RBC Morphology Not Reportable 04/01/22 04:16 Dimorphic RBCs Not Reportable 04/01/22 04:16 Polychromasia Not Reportable 04/01/22 04:16 Hypochromasia Not Reportable 04/01/22 04:16 Poikilocytosis Not Reportable 04/01/22 04:16 Anisocytosis 2+ 04/01/22 04:16 Microcytosis Not Reportable 04/01/22 04:16 Macrocytosis Not Reportable 04/01/22 04:16 Spherocytes Not Reportable 04/01/22 04:16 Pappenheimer Bodies Not Reportable 04/01/22 04:16 Sickle Cells Not Reportable 04/01/22 04:16 Target Cells Not Reportable 04/01/22 04:16 Tear Drop Cells Not Reportable 04/01/22 04:16 Ovalocytes Not Reportable 04/01/22 04:16 Stomatocytes Rare 03/21/22 10:42 Helmet Cells Not Reportable 04/01/22 04:16 [place] Bodies Not Reportable 04/01/22 04:16 [place] Rings Not Reportable 04/01/22 04:16 [place] Cells Not Reportable 04/01/22 04:16 Bite Cells Not Reportable 04/01/22 04:16 Crenated Cell Not Reportable 04/01/22 04:16 Elliptocytes Not Reportable 04/01/22 04:16 Acanthocytes (Spur) Not Reportable 04/01/22 04:16 Rouleaux Not Reportable 04/01/22 04:16 Hemoglobin C Crystals Not Reportable 04/01/22 04:16 Schistocytes Not Reportable 04/01/22 04:16 Malaria parasites Not Reportable 04/01/22 04:16 Kiran Bodies Not Reportable 04/01/22 04:16 Hem Pathologist Commnt No 04/01/22 04:16 Sodium 134 mmol/L (137-145) L 04/01/22 04:16 Potassium 3.3 mmol/L (3.6-5.0) L 04/01/22 04:16 Chloride 96.7 mmol/L (98-107) L 04/01/22 04:16 Carbon Dioxide 32 mmol/L (22-30) H 04/01/22 04:16 Anion Gap 9 mmol/L 04/01/22 04:16 BUN 25 mg/dL (7-17) H 04/01/22 04:16 Creatinine 3.2 mg/dL (0.6-1.2) H 04/01/22 04:16 Estimated GFR 15 ml/min 04/01/22 04:16 BUN/Creatinine Ratio 8 % 04/01/22 04:16 Glucose 82 mg/dL (65-100) 04/01/22 04:16 POC Glucose 125 mg/dL (70-105) H 04/01/22 16:29 Lactic Acid 1.40 mmol/L (0.7-2.0) 03/21/22 00:09 Calcium 8.6 mg/dL (8.4-10.2) 04/01/22 04:16 Total Bilirubin 2.40 mg/dL (0.1-1.2) H 03/21/22 00:09 AST 63 units/L (5-40) H 03/21/22 00:09 ALT 28 units/L (7-56) 03/21/22 00:09 Alkaline Phosphatase 145 units/L (35-129) H 03/21/22 00:09 Total Protein 6.2 g/dL (6.3-8.2) L 03/21/22 00:09 Albumin 2.1 g/dL (3.9-5) L 03/21/22 00:09 Albumin/Globulin Ratio 0.5 % 03/21/22 00:09 Coronavirus (PCR) Negative (Negative) 03/23/22 Unknown Hepatitis A IgM Ab Non-reactive (NonReactive) 03/23/22 11:00 Hep Bs Antigen Non-reactive (Negative) 03/23/22 11:00 Hep B Core IgM Ab Non-reactive (NonReactive) 03/23/22 11:00 Hepatitis C Antibody Non-reactive (NonReactive) 03/23/22 11:00 Blood Type O POSITIVE 03/21/22 05:35 Antibody Screen Negative 03/21/22 05:35 Crossmatch See Detail 03/21/22 05:35 Senior/IV: Voiding Method Incontinent Active Medications - Current Medications Current Medications: Generic Name Dose Route Start Last Admin Trade Name Freq PRN Reason Stop Dose Admin Acetaminophen 650 mg 03/21/22 02:28 04/03/22 23:43 Acetaminophen 325 Mg Tab PO 650 mg Q4H PRN Administration Pain MILD(1-3)/Fever >100.5/JOSEPH Hydrocodone Bitart/Acetaminophen 1 each 04/03/22 13:43 04/04/22 23:37 Hydrocodone/Acetaminophen 5-325 Mg Tab PO 1 each Q6H PRN Administration Pain, Moderate (4-6) Albumin Human 25 gm 03/28/22 16:29 Albumin Human 25% (25 Gm/100 Ml) Inj IV PETRA PRN Hypotension Albuterol 2.5 mg 03/21/22 02:28 04/02/22 14:52 Albuterol 2.5 Mg/3 Ml Nebu IH 2.5 mg Q3HRT PRN Administration Shortness Of Breath Chlordiazepoxide HCl 12.5 mg 04/03/22 10:00 04/05/22 09:02 Chlordiazepoxide 25 Mg Cap PO 12.5 mg BID FABIEN Administration Epoetin Arnulfo-epbx 10,000 unit 03/23/22 13:00 04/04/22 12:11 Epoetin Arnulfo-Epbx 10,000 Unit/1 Ml Vial SUB-Q 10,000 unit PETRA PRN Administration dialysis Famotidine 20 mg 03/21/22 10:00 04/05/22 09:02 Famotidine 20 Mg Tab PO 20 mg QAM FABIEN Administration Fluoxetine HCl 20 mg 03/21/22 10:00 04/05/22 09:02 Fluoxetine 20 Mg Cap PO 20 mg QDAY FABIEN Administration Folic Acid 1 mg 03/21/22 10:00 04/05/22 09:02 Folic Acid 1 Mg Tab PO 1 mg QDAY FABIEN Administration Heparin Sodium (Porcine) 5,000 unit 03/21/22 22:00 04/05/22 09:05 Heparin 5,000 Unit/1 Ml Vial SUB-Q 5,000 unit Q12HR FABIEN Administration Sodium Chloride 100 mls @ 999 mls/hr 04/04/22 09:59 Nacl 0.9% IV PETRA PRN Hypotension Lactulose 20 gm 03/21/22 10:00 04/05/22 09:02 Lactulose 20 Gm/30 Ml Oral Liqd PO 20 gm QDAY FABIEN Administration Midodrine 10 mg 03/21/22 08:00 04/05/22 09:04 Midodrine 10 Mg Tab PO 10 mg TID@0800,1200,1600 FABIEN Administration Morphine Sulfate 1 mg 04/03/22 13:43 Morphine 2 Mg/1 Ml Inj IV Q4H PRN Pain , Severe (7-10) Ondansetron HCl 4 mg 03/21/22 02:28 Ondansetron 4 Mg/2 Ml Inj IV Q8H PRN Nausea And Vomiting Rifaximin 550 mg 03/21/22 10:00 04/05/22 09:02 Rifaximin 550 Mg Tab PO 550 mg BID FABIEN Administration Sodium Bicarbonate 650 mg 04/02/22 10:00 04/05/22 09:01 Sodium Bicarbonate 650 Mg Tab PO 650 mg DAILY FABIEN Administration Sodium Chloride 10 ml 03/21/22 10:00 04/05/22 09:01 Sodium Chloride 0.9% 10 Ml Flush Syringe IV 10 ml BID FABIEN Administration Sodium Chloride 10 ml 03/21/22 02:28 Sodium Chloride 0.9% 10 Ml Flush Syringe IV PRN PRN LINE FLUSH Thiamine HCl 100 mg 03/21/22 10:00 04/05/22 09:01 Thiamine 100 Mg Tab PO 100 mg QDAY FABIEN Administration Trazodone HCl 50 mg 03/21/22 22:00 04/04/22 23:21 Trazodone 50 Mg Tab PO 50 mg QHS FABIEN Administration Nutrition/Malnutrition Assess - Dietary Evaluation Nutrition/Malnutrition Findings: Nutrition Notes Start: 03/22/22 16:46 Freq: Status: Active Protocol: Document 03/29/22 11:24 JOSELUIS (Rec: 03/29/22 11:48 JOSELUIS [email or web address]) Nutrition Notes Initial or Follow up Reassessment Current Diagnosis CKD (stage V CKD),Decubitus( Pressure Ulcer),Hypertension, Malnutrition Other Pertinent Diagnosis ESRD+HD, Bilateral-LE & Sacral Ulcers, Anemia, EtOH Abuse, Liver Cancer. Current Diet Renal Diet (since B 03/21), D Suppl (from D 03/22). Labs/Tests 03/29: Na 135, K 3.5, Cl 96.2, CO2 33, BUN 27, Crea 3.5, Glu 106, Ca 8.1. Pertinent Medications 03/29: Folic acid, Thiamine, others nutritionally unremarkable. Height 5 ft 6 in Weight 103.9 kg [place] Body Weight (kg) 59.09 BMI 36.9 Weight change and time frame No body weight change reported in 1 week. Weight Status Morbidly Obese Subjective/Other Information RD consult for routine F/U on dietary advancement. Diet continues as preescribed, Pt's PO intake of meals has been Negligible (25%), according to ADL and RN notes. RN note on 03/28/22 18:40: pt. back fr. Dialysis a/ox2. Perm cath rt. chest dry and intact . set up lunch tray pt. ate few bites. has poor appetite. - END OF NOTE. Pt is on Nasal Cannula, O2 saturation @ 96%, according to Physical Assessment History notes. Pt continues with incontinence , according to Physical Assessment History notes. Pt has been discharged since 03/24, but no family member has come to pick Pt up, CM keeps calling, according to Progress notes. Percent of energy/protein needs met: Prescribed Renal Diet provides for energy/protein needs (2, 072 Kcal/77 g) during LOS; additionally, Dietary Supplements will compensate for possible poor or insufficient PO intake of meals and support wound healing processes with 1,040 Kcal and 43 g of protein. Burn Absent Trauma Absent GI Symptoms Other Food Allergy No Skin Integrity/Comment Bilateral-LE & Sacral Ulcers. Current % PO Negligible Minimum of two criteria No Fluid Accumulation N/A Reduced Story Teller Strength N/A (non-severe) Protein-Calorie Malnutrition N\A #2 Nutrition Diagnosis Inadequate protein-energy intake Comments: Change Nutrition Diagnosis for precision. Diet continues as preescribed, Pt's PO intake of meals has been Negligible (25%), according to ADL and RN notes. Diagnosis Progress(for reassessment Continues documentation) #1 Nutrition Diagnosis Increased nutrient needs ( specify in comment below) Comments: Protein to support wound healing processes. Diagnosis Progress(for reassessment Continues documentation) Is patient on ventilator? No Is Patient Ambulatory and/or Out of Bed No REE-([facility]-confined to bed) 2008.548 Kcal/Kg value to use for calculation 16 Approximate Energy Requirements Using 1662 kcal/Kg Calculation Used for Recommendations Kcal/kg Additional Notes Protein: >1.2 g/Kg AdjBW; >98 g/day. Fluids: 1 ml/Kcal, or as per MD. Nutrition Intervention Change Diet Order: Continue Renal Diet. Add Supplement/Snack (indicate name/kcal Continue 8 fl oz Nepro w/ /protein ) CARBSTEADY; BID. Continue 28.8 g pkt Isidoro; BID . Provides kCal: 1,040 Provides Protein (gm) 43 Goal #1 Support, through dietary supplementation, wound healing processes during LOS. Goal #2 Compensate, through dietary supplementation, for possible poor or insufficient PO intake of meals during LOS. Follow-Up By: 04/05/22 Additional Comments Continue monitoring food tolerance, %PO intake of meals , dietary supplements, and BM.
[2022-04-05] MEDS: HYDROcodone/ACETAMINOPHEN 5-325 MG TAB PO PRN (10:22)
--- NOTE | 2022-04-05 10:40 | Progress Note ---
Assessment and Plan - Patient Problems (1) End stage renal disease Current Visit: No Status: Chronic Plan to address problem: Cont HD on TTS schedule while inpatient. cont albumin support prn and on midodrine 10mg po tid to maintain MAP > 65mmHg. using 4 K bath to correct hypokalemia. Patient does not have outpatient HD currently due to uninsured sta tus. (2) Anemia Current Visit: Yes Status: Acute Qualifiers: Anemia type: unspecified type Qualified Code(s): D64.9 - Anemia, unspecified Plan to address problem: cont EPO with HD, transfuse with PRBC prn to target Hb > 7 (3) Chronic ulcer of leg Current Visit: Yes Status: Acute Qualifiers: Laterality: unspecified laterality Non-pressure ulcer stage: unspecified non-pressure ulcer stage Qualified Code(s): L97.909 - Non-pressure chronic ulcer of unspecified part of unspecified lower leg with unspecified severity (4) Hypotension Current Visit: Yes Status: Acute Plan to address problem: cont midodrine 10mg po tid. Albumin support prn for HD to maintain MAP > 65mmHg Subjective Date of service: 04/05/22 Principal diagnosis: ESRD Interval history: Patient is weak, lethargic, cont HD on TTS schedule with albumin support as needed Objective - Vital Signs Vital signs: Vital Signs - 12hr 04/04/22 04/05/22 23:15 09:18 Temperature 98.5 F Pulse Rate 96 H Respiratory 18 Rate Blood Pressure 102/55 [Left] O2 Sat by Pulse 95 93 Oximetry - General Appearance General appearance: cachectic, chronically ill EENT: ATNC, PERRL, mucous membranes moist Neck: no JVD Respiratory: Present: Clear to Ascultation Cardiology: regular, S1S2 Gastrointestinal: normoactive bowel sounds Integumentary: other (+ edema ) Neurologic: no focal deficit, CN 3-12 intact - Lab 04/01/22 04:16 04/01/22 04:16 Most recent lab results Calcium 8.6 mg/dL (8.4-10.2) 04/01/22 04:16 Medications & Allergies - Medications Allergies/Adverse Reactions: Allergies Penicillins Allergy (Verified 03/16/22 19:11) Rash Home Medications: Home Medications Medication Instructions Recorded Confirmed Last Taken Type Multivitamin Tab [Multiple Vitamin 1 each PO ONCE #30 tablet 04/27/16 03/22/22 Unknown Rx TAB (Theragran)] FLUoxetine [PROzac] 20 mg PO QDAY #30 capsule 03/14/22 03/22/22 Unknown Rx Folic Acid [Folvite] 1 mg PO QDAY #30 tablet 03/14/22 03/22/22 Unknown Rx Lactulose [Cephulac] 20 gm PO QDAY #30 oral.liqd 03/14/22 03/22/22 Unknown Rx Pantoprazole [Protonix TAB] 40 mg PO QDAC #30 tablet 03/14/22 03/22/22 Unknown Rx Rifaximin [Xifaxan] 550 mg PO BID #60 tablet 03/14/22 03/22/22 Unknown Rx Sodium Bicarbonate 1,300 mg PO TID #90 tablet 03/14/22 03/22/22 Unknown Rx Thiamine [Vitamin B-1] 100 mg PO QDAY #30 tablet 03/14/22 03/22/22 Unknown Rx chlordiazePOXIDE [Librium] 25 mg PO Q6H #10 capsule 03/14/22 03/22/22 Unknown Rx traZODone [Desyrel] 50 mg PO QHS #30 tab 03/14/22 03/22/22 Unknown Rx Ferrous Sulfate [Feosol 325 MG tab] 325 mg PO BID #60 tablet 03/24/22 Unknown Rx Midodrine [Proamatine] 10 mg PO TID@0800,1200,1600 #90 03/24/22 Unknown Rx tablet oxyCODONE /ACETAMINOPHEN [Percocet 1 tab PO QHS #7 03/24/22 Unknown Rx 5/325] Active Medications: Generic Name Dose Route Start Last Admin Trade Name Freq PRN Reason Stop Dose Admin Acetaminophen 650 mg 03/21/22 02:28 04/03/22 23:43 Acetaminophen 325 Mg Tab PO 650 mg Q4H PRN Administration Pain MILD(1-3)/Fever >100.5/JOSEPH Hydrocodone Bitart/Acetaminophen 1 each 04/03/22 13:43 04/05/22 10:22 Hydrocodone/Acetaminophen 5-325 Mg Tab PO 1 each Q6H PRN Administration Pain, Moderate (4-6) Albumin Human 25 gm 03/28/22 16:29 Albumin Human 25% (25 Gm/100 Ml) Inj IV PETRA PRN Hypotension Albuterol 2.5 mg 03/21/22 02:28 04/02/22 14:52 Albuterol 2.5 Mg/3 Ml Nebu IH 2.5 mg Q3HRT PRN Administration Shortness Of Breath Chlordiazepoxide HCl 12.5 mg 04/03/22 10:00 04/05/22 09:02 Chlordiazepoxide 25 Mg Cap PO 12.5 mg BID FABIEN Administration Epoetin Arnulfo-epbx 10,000 unit 03/23/22 13:00 04/04/22 12:11 Epoetin Arnulfo-Epbx 10,000 Unit/1 Ml Vial SUB-Q 10,000 unit PETRA PRN Administration dialysis Famotidine 20 mg 03/21/22 10:00 04/05/22 09:02 Famotidine 20 Mg Tab PO 20 mg QAM FABIEN Administration Fluoxetine HCl 20 mg 03/21/22 10:00 04/05/22 09:02 Fluoxetine 20 Mg Cap PO 20 mg QDAY FABIEN Administration Folic Acid 1 mg 03/21/22 10:00 04/05/22 09:02 Folic Acid 1 Mg Tab PO 1 mg QDAY FABIEN Administration Heparin Sodium (Porcine) 5,000 unit 03/21/22 22:00 04/05/22 09:05 Heparin 5,000 Unit/1 Ml Vial SUB-Q 5,000 unit Q12HR FABIEN Administration Sodium Chloride 100 mls @ 999 mls/hr 04/04/22 09:59 Nacl 0.9% IV PETRA PRN Hypotension Lactulose 20 gm 03/21/22 10:00 04/05/22 09:02 Lactulose 20 Gm/30 Ml Oral Liqd PO 20 gm QDAY FABIEN Administration Midodrine 10 mg 03/21/22 08:00 04/05/22 09:04 Midodrine 10 Mg Tab PO 10 mg TID@0800,1200,1600 FABIEN Administration Morphine Sulfate 1 mg 04/03/22 13:43 04/05/22 10:28 Morphine 2 Mg/1 Ml Inj IV 1 mg Q4H PRN Administration Pain , Severe (7-10) Ondansetron HCl 4 mg 03/21/22 02:28 Ondansetron 4 Mg/2 Ml Inj IV Q8H PRN Nausea And Vomiting Rifaximin 550 mg 03/21/22 10:00 04/05/22 09:02 Rifaximin 550 Mg Tab PO 550 mg BID FABIEN Administration Sodium Bicarbonate 650 mg 04/02/22 10:00 04/05/22 09:01 Sodium Bicarbonate 650 Mg Tab PO 650 mg DAILY FABIEN Administration Sodium Chloride 10 ml 03/21/22 10:00 04/05/22 09:01 Sodium Chloride 0.9% 10 Ml Flush Syringe IV 10 ml BID FABIEN Administration Sodium Chloride 10 ml 03/21/22 02:28 Sodium Chloride 0.9% 10 Ml Flush Syringe IV PRN PRN LINE FLUSH Thiamine HCl 100 mg 03/21/22 10:00 04/05/22 09:01 Thiamine 100 Mg Tab PO 100 mg QDAY FABIEN Administration Trazodone HCl 50 mg 03/21/22 22:00 04/04/22 23:21 Trazodone 50 Mg Tab PO 50 mg QHS FABIEN Administration
--- NOTE | 2022-04-05 12:00 | Discharge Summary ---
Providers - Providers Date of Admission: 03/21/22 02:29 Date of discharge: 04/05/22 Attending physician: OLIVER SANTOYO 03/21/22 02:15 Consult to Physician [CONS] Routine Comment: pls notify physician in AM since no urgent need Consulting Provider: BEV LOPEZ Physician Instructions: Reason For Exam: ESRD dialysis 03/21/22 18:30 Consult to Dietitian/Nutrition [CONS] Routine Physician Instructions: Reason For Exam: Reason for Consult: Poor oral intake 03/23/22 16:46 Consult to Wound/ET Nurse [CONS] Urgent Reason For Exam: wound eval 03/30/22 10:48 Physical Therapy Evaluation and Treat [CONS] Routine Comment: Reason For Exam: Debility Primary care physician: RAND BUTTER Hospitalization Condition: Stable Hospital course: 51 yo F with history of chronic bilateral lower leg ulcer and ESRD with dialysis on MWF who now present with generalized body aches for the last couple of days. Pt last dialysis was on Sunday so she missed session today. No fever or chills. No other modifying or associated factors. In the emergency room patient is found to have hemoglobin of 6.2 and hematocrit 18.8, she will going to transfuse 1 unit of packed red blood cells also will consult nephrology for hemodialysis, patient was cleared for discharge, does not have resources, does not have chair time at outpatient dialysis center, Patient was discharged, case management caregivers contacted geovani Augustin number of times to come and pick her up, discharge planning per case management. Patient already had discharge orders, case management considering from hospice Discharge diagnosis: --Ascites with and generalized anasarca Due to volume overload since patient refusing dialysis Ordered for paracentesis, discussed compliant about hemodialysis Continue to follow - Symptomatic anemia Hb 6.2-6.5-8.4 Patient received total 3 units hemoglobin improved to 8.4 Closely monitor H&H and transfuse additional PRBC --End stage renal disease on HD Patient missed hemodialysis. Nephrology following HD per schedule, blood transfusion during dialysis --Generalized body aches Tylenol 650 mg p.o. every 6 hours as needed. Resume home medication. We will monitor the patient closely and adjust -- Chronic ulcer of leg Is stable. 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 Pepcid 20 mg p.o. twice daily for GI prophylaxis. Patient is a full code Disposition: 50 HOSPICE/HOME Core Measure Documentation - Palliative Care Palliative Care/ Comfort Measures: Hospice Care - Core Measures Any of the following diagnoses?: none Exam - Constitutional Vitals: Temp Pulse Resp BP Pulse Ox 98.5 F 96 H 18 102/55 96 04/04/22 23:15 04/04/22 23:15 04/04/22 23:15 04/04/22 23:15 04/05/22 10:00 Plan Activity: advance as tolerated, fall precautions Diet: renal, other (Mechanical soft diet) Additional Instructions: Rest of the management per hospice medical research tech Follow up with: PRIMARY CARE, [Primary Care Provider] - 3-5 Days Prescriptions: Ferrous Sulfate [Feosol 325 MG tab] 325 mg PO BID #60 tablet oxyCODONE /ACETAMINOPHEN [Percocet 5/325] 1 tab PO QHS #7 Midodrine [Proamatine] 10 mg PO TID@0800,1200,1600 #90 tablet
[2022-04-05 20:22] VITALS: BP 95/55
[2022-04-05] MEDS: traZODone 50 MG TAB PO SCH (21:49)
[2022-04-06] MEDS: FOLIC ACID 1 MG TAB PO SCH (09:23)
[2022-04-06] MEDS: SODIUM BICARBONATE 650 MG TAB PO SCH (09:24)
[2022-04-06] MEDS: FLUoxetine 20 MG CAP PO SCH (09:24)
[2022-04-06] MEDS: LACTULOSE 20 GM/30 ML ORAL LIQD PO SCH (09:24)
[2022-04-06] MEDS: FAMOTIDINE 20 MG TAB PO SCH (09:24)
[2022-04-06] MEDS: MIDODRINE 10 MG TAB PO SCH (09:24)
[2022-04-06] MEDS: RIFAXIMIN 550 MG TAB PO SCH (09:24)
[2022-04-06] MEDS: HEPARIN 5,000 UNIT/1 ML VIAL SUB-Q SCH (09:25)
[2022-04-06] MEDS: chlordiazePOXIDE 25 MG CAP PO SCH (09:25)
[2022-04-06] MEDS: THIAMINE 100 MG TAB PO SCH (09:28)
== END 2022-04-06 10:28 | disposition hospice, home (50) | DRG 813 ==
LOC: ED 22:58 → 3A 03-21 02:29
PROVIDERS: ADMIT Hospitalist; ATTEND Internal Medicine
PROC: 30233N1 Transfusion of Nonautologous Red Blood Cells into Peripheral Vein, Percutaneous Approach (ICD-10-PCS; principal; 2022-03-21)
PROC: 5A1D70Z Performance of Urinary Filtration, Intermittent, Less than 6 Hours Per Day (ICD-10-PCS; 2022-03-21)
PROC: 5A1D70Z Performance of Urinary Filtration, Intermittent, Less than 6 Hours Per Day (ICD-10-PCS; 2022-03-23)
PROC: 5A1D70Z Performance of Urinary Filtration, Intermittent, Less than 6 Hours Per Day (ICD-10-PCS; 2022-03-25)
PROC: 5A1D70Z Performance of Urinary Filtration, Intermittent, Less than 6 Hours Per Day (ICD-10-PCS; 2022-03-28)
PROC: 5A1D70Z Performance of Urinary Filtration, Intermittent, Less than 6 Hours Per Day (ICD-10-PCS; 2022-03-30)
PROC: 5A1D70Z Performance of Urinary Filtration, Intermittent, Less than 6 Hours Per Day (ICD-10-PCS; 2022-04-01)
PROC: 5A1D70Z Performance of Urinary Filtration, Intermittent, Less than 6 Hours Per Day (ICD-10-PCS; 2022-04-04)
DX: D69.6 Thrombocytopenia, unspecified (principal); E43 Unspecified severe protein-calorie malnutrition; N18.6 End stage renal disease; Z20.822 Contact with and (suspected) exposure to COVID-19; L97.909 Non-pressure chronic ulcer of unspecified part of unspecified lower leg with unspecified severity; R18.8 Other ascites; I95.9 Hypotension, unspecified; F10.10 Alcohol abuse, uncomplicated; E66.01 Morbid (severe) obesity due to excess calories; Z51.5 Encounter for palliative care; Z99.2 Dependence on renal dialysis; Y90.9 Presence of alcohol in blood, level not specified; Z68.37 Body mass index [BMI] 37.0-37.9, adult; D63.1 Anemia in chronic kidney disease; Z90.49 Acquired absence of other specified parts of digestive tract; Z82.49 Family history of ischemic heart disease and other diseases of the circulatory system
CPT/HCPCS: 36415; 36430; 71045; 80048; 80053; 80074; 82140; 82270; 82962; 85007; 85014; 85018; 85025; 86850; 86900; 86901; 86920; 94640; 94760; 99406; G0378; J0885; J1644; J2270; J3010; J7040; P9016; P9047; U0003